=== PATIENT | female | born 1945 | race Caucasian/White ===

== ENCOUNTER → 2018-04-11 09:54 | Outpatient (CLI) | payer MEDICARE, SELFPAY ==
[2018-04-11 10:36] LABS: Hemoglobin A1C% w Est Avg Glu 7.2 % (4.0-6.0)
== END ==
PROVIDERS: PCP Family Medicine; Visit Provider Family Medicine
DX: I10 Essential (primary) hypertension (principal); M15.0 Primary generalized (osteo)arthritis; E11.40 Type 2 diabetes mellitus with diabetic neuropathy, unspecified
CPT/HCPCS: 36415; 83036

== ENCOUNTER 2018-07-20 15:15 | Outpatient (RCR) | payer MEDICARE, SELFPAY ==
--- NOTE | 2018-05-27 17:21 | PT.OIE ---
Current Diagnoses Benign paroxysmal vertigo, bilateral (05/27/18) Dizziness and giddiness (05/27/18) Past Medical History (Last Reviewed 04/12/18 @ 12:11 by Alyssa Bonner DO) Asthma (Chronic Unknown) Diabetes (Chronic Unknown) Hyperlipemia (Chronic Unknown) Hypertension (Chronic Unknown) Low back pain (Chronic ~2015) Osteoarthritis (Chronic Unknown) Carpal tunnel syndrome (Resolved ~2005) Colon polyps (Resolved 02/2007) Past Surgical History History of knee replacement S/P total abdominal hysterectomy and bilateral salpingo-oophorectomy Status post delivery Provider Visit Care Team Role Provider Type Alyssa Bonner DO Attending Provider Physician Family Provider Primary Care Provider Specialty: Family Practice Address: [address] [place] [address], [facility] Email: [email or web address] Physical Therapy Initial Evaluation PT-OP-A Visit Information Start: 05/27/18 16:45 Freq: Status: Active Protocol: Document 05/27/18 15:15 DCW (Rec: 05/27/18 17:21 DCW [id number]) Out-Patient Physical Therapy Visit Information Visit Information Visit Type Initial Evaluation Visit Start Time 15:15 Visit Stop Time 16:00 Total Visit Minutes 45 Visit Number 1 Number of RADIOLOGY TECHNOLOGIST Visits 0 Evaluation Information Evaluation Date 05/27/18 PT-OP-B Current Condition Start: 05/27/18 16:45 Freq: Status: Active Protocol: Document 05/27/18 15:15 DCW (Rec: 05/27/18 17:21 DC [id number]) Current Condition History of Current Condition Onset Date 04/26/18 Current Complaints Position-dependent vertigo History of Current Condition Pt is a 73 year old female complaining of a one year history of motion-induced vertigo. Symptoms began following a long flight back to [place] from [facility], when she fell getting up in the morning walking to the bathroom. Pt reports she felt a kaleidoscope vision prior to falling. Pt has not noticed this since then, but has had a consistent sensation of vertigo with position changes in bed. Pt reports episodes last 5/10 seconds, however she also notes just a generalized low-grade imbalance when up walking around, which has led to her walking with a cane more often. Pt denies recent hearing changes, tinnitus, diplopia, dysarthria, discoordination, or decreased mentation/consciousness. Pt reports symptoms are not waxing/waning in nature. Pt denies hx of arrhythmia, head trauma, seizure, migraines, CVA, anxiety/panic disorders, depression, or excessive smoking or drinking. Pt does note a history of HTN, hyperlipidemia, and diabetes, however all are well controlled. Treatment Goals Patient/Caregiver Goals Pt would like to eliminate vertigo and feel more stable when up walking around. Prior Functional Status Baseline Function- ADL's Independent Baseline Function- Mobility Independent Current Functional Impairments (Reported) Functional Limitations- Mobility/Gait Cane on uneven surfaces and sidewalks, no assistive device in her house. PT-OP-C Subjective Start: 05/27/18 16:45 Freq: Status: Active Protocol: Document 05/27/18 15:15 DCW (Rec: 05/27/18 17:21 DCW [id number]) Patient Questionnaires ABC- Activity Specific Balance Confidence Scale ABC Score 38.75% ABC Functional Impairment 60 to <80% Impaired (Score 21- 40) Dizziness Handicap Inventory DHI Score 56 DHI Functional Impairment 40 to 59% Impaired (Score 40- 59) PT-OP-O Vestibular Start: 05/27/18 16:45 Freq: Status: Active Protocol: Document 05/27/18 15:15 DCW (Rec: 05/27/18 17:21 DCW [id number]) Vestibular Assessment Screening Tests Vestibular Artery Screen Negative Auditory Tests Coffman Test Negative Rinne Test Negative Air Conduction Results Equal Visual Testing Smooth Pursuits Horizontal Negative Smooth Pursuits Vertical Negative Saccades Horizontal Negative Gaze Evoked Nystagmus With Fixation Negative Gaze Evoked Nystagmus Without Fixation Negative Heave Test Negative Thrust Head Negative Spontaneous Nystagmus Negative Positional Testing [place]-Hallpike Positive Left Positive Right PT-OP-Q Treatments Start: 05/27/18 16:45 Freq: Status: Active Protocol: Document 05/27/18 15:15 DCW (Rec: 05/27/18 17:21 DCW [id number]) Canalithic Repositioning BPPV Treatment Sukumar Affected Canal(s) Right posterior Reps x2 Comments Pt complained of symptoms in the first and third position, which is normally indicative of a successful treatment. PT-OP-T Assessment and Plan Start: 05/27/18 16:45 Freq: Status: Active Protocol: Document 05/27/18 15:15 DCW (Rec: 05/27/18 17:21 DCW [id number]) Physical Therapy Assessment Rehab Potential Rehabilitation Potential Good Evaluation Complexity Number of Personal Factors/Comorbidities 3 or More Number of Body Systems Impaired 3 Clinical Presentation at Evaluation Unstable Impairments Impairments Balance Coordination Vestibular Goals Two Impairment Zaki-Hallpike Short Term Goal (STG) Negative Zaki-Hallpike bilaterally STG Duration 06/10/18 One Impairment Activity participation Short Term Goal (STG) Pt to lay in bed with no complaints of vertigo STG Duration 06/10/18 Assessment Summary Assessment During right Zaki-Hallpike test , pt complained of vertigo and demonstrated up-beating, torsional nystagmus lasting approximately 5 seconds, consistent with diagnosis of right-sided posterior canal BPPV, canalithiasis-type. Pt was treated with a right-sided Sukumar maneuver. Pt complained of symptoms in the first and third position, which is normally indicative of a successful treatment. A second Hallpike was performed, and pt now had a sustained mild upbeating nystagmus lasting 40 seconds. A left Hallpike was then performed, and pt had a mild response of vertigo and upbeating, torsional nystagmus . This combination could be consistent with a left-sided canalithiasis where the loose canalith is laying on the ampula, mimicing a right- cupulolithiasis. Due to bilateral BPPV being difficult to treat all at once, a second right-sided Sukumar was performed, and pt was instructed to return next week for further testing and treatment o possible left- sided BPPV. Pt was educated on BPPV, expectations for treatment, possible recurrence , and post-Sukumar restrictions. Physical Therapy Plan Frequency and Duration Frequency of Treatment 2x/Week Duration of Treatment 6 weeks Plan of Care Start Date 05/27/18 Plan of Care End Date 07/08/18 Therapeutic Interventions Therapeutic Interventions Balance Training Canalithic Repositioning Manual Therapy Patient/Caregiver Education Self-Care/Home Management Therapeutic Exercises Next Visit Focus/Plan Next Note Type Treatment Note Next Visit Plan Further positional testing, CRM.
--- NOTE | 2018-05-27 17:22 | PT.OPPOC ---
Current Diagnoses Benign paroxysmal vertigo, bilateral (05/27/18) Dizziness and giddiness (05/27/18) Provider Visit Care Team Role Provider Type Alyssa Bonner DO Attending Provider Physician Family Provider Primary Care Provider Specialty: Family Practice Address: [address] [place] [address], [id number] Email: [email or web address] Plan Of Care PT-OP-T Assessment and Plan Start: 05/27/18 16:45 Freq: Status: Active Protocol: Document 05/27/18 15:15 DCW (Rec: 05/27/18 17:21 DCW [id number]) Physical Therapy Assessment Rehab Potential Rehabilitation Potential Good Evaluation Complexity Number of Personal Factors/Comorbidities 3 or More Number of Body Systems Impaired 3 Clinical Presentation at Evaluation Unstable Impairments Impairments Balance Coordination Vestibular Goals Two Impairment Zaki-Hallpike Short Term Goal (STG) Negative Zaki-Hallpike bilaterally STG Duration 06/10/18 One Impairment Activity participation Short Term Goal (STG) Pt to lay in bed with no complaints of vertigo STG Duration 06/10/18 Assessment Summary Assessment During right Zaki-Hallpike test , pt complained of vertigo and demonstrated up-beating, torsional nystagmus lasting approximately 5 seconds, consistent with diagnosis of right-sided posterior canal BPPV, canalithiasis-type. Pt was treated with a right-sided Sukumar maneuver. Pt complained of symptoms in the first and third position, which is normally indicative of a successful treatment. A second Hallpike was performed, and pt now had a sustained mild upbeating nystagmus lasting 40 seconds. A left Hallpike was then performed, and pt had a mild response of vertigo and upbeating, torsional nystagmus . This combination could be consistent with a left-sided canalithiasis where the loose canalith is laying on the ampula, mimicing a right- cupulolithiasis. Due to bilateral BPPV being difficult to treat all at once, a second right-sided Sukumar was performed, and pt was instructed to return next week for further testing and treatment o possible left- sided BPPV. Pt was educated on BPPV, expectations for treatment, possible recurrence , and post-Sukumar restrictions. Physical Therapy Plan Frequency and Duration Frequency of Treatment 2x/Week Duration of Treatment 6 weeks Plan of Care Start Date 05/27/18 Plan of Care End Date 07/08/18 Therapeutic Interventions Therapeutic Interventions Balance Training Canalithic Repositioning Manual Therapy Patient/Caregiver Education Self-Care/Home Management Therapeutic Exercises Next Visit Focus/Plan Next Note Type Treatment Note Next Visit Plan Further positional testing, CRM. Plan of Care Dates Plan of Care Start Date 05/27/18 Plan of Care End Date 07/08/18 Please Sign and Return: I have reviewed this Plan of Care and certify that the skilled therapy services above are required to meet the patient?s needs. Physician Signature Date Printed Name and Credentials Clinical Instructor Signature Printed Name and Credentials
--- NOTE | 2018-05-30 14:31 | PT.OTN ---
Current Diagnoses Dizziness and giddiness (05/30/18) Physical Therapy Treatment Note PT-OP-A Visit Information Start: 05/27/18 16:45 Freq: Status: Active Protocol: Document 05/30/18 13:50 DCW (Rec: 05/30/18 14:30 DCW [id number]) Out-Patient Physical Therapy Visit Information Visit Information Visit Type Treatment Note Visit Note Arrived 5 minutes late Visit Start Time 13:50 Visit Stop Time 14:20 Total Visit Minutes 30 Visit Number 2 Number of FURNACE MECHANIC Visits 0 Evaluation Information Evaluation Date 05/27/18 PT-OP-B Current Condition Start: 05/27/18 16:45 Freq: Status: Active Protocol: Document 05/27/18 15:15 DCW (Rec: 05/27/18 17:21 DCW [id number]) Current Condition History of Current Condition Onset Date 04/26/18 Current Complaints Position-dependent vertigo History of Current Condition Pt is a 73 year old female complaining of a one year history of motion-induced vertigo. Symptoms began following a long flight back to [place] from [facility], when she fell getting up in the morning walking to the bathroom. Pt reports she felt a kaleidoscope vision prior to falling. Pt has not noticed this since then, but has had a consistent sensation of vertigo with position changes in bed. Pt reports episodes last 5/10 seconds, however she also notes just a generalized low-grade imbalance when up walking around, which has led to her walking with a cane more often. Pt denies recent hearing changes, tinnitus, diplopia, dysarthria, discoordination, or decreased mentation/consciousness. Pt reports symptoms are not waxing/waning in nature. Pt denies hx of arrhythmia, head trauma, seizure, migraines, CVA, anxiety/panic disorders, depression, or excessive smoking or drinking. Pt does note a history of HTN, hyperlipidemia, and diabetes, however all are well controlled. Treatment Goals Patient/Caregiver Goals Pt would like to eliminate vertigo and feel more stable when up walking around. Prior Functional Status Baseline Function- ADL's Independent Baseline Function- Mobility Independent Current Functional Impairments (Reported) Functional Limitations- Mobility/Gait Cane on uneven surfaces and sidewalks, no assistive device in her house. PT-OP-C Subjective Start: 05/27/18 16:45 Freq: Status: Active Protocol: Document 05/30/18 13:50 DCW (Rec: 05/30/18 14:30 DCW [id number]) OP-PT Subjective Patient Comments Patient Comments Is there a placebo effect for this, because I felt better. Although I haven't really been doing anything to trigger it since Wednesday, so maybe not . Patient Reported Progress Improving PT-OP-O Vestibular Start: 05/27/18 16:45 Freq: Status: Active Protocol: Document 05/30/18 13:50 DCW (Rec: 05/30/18 14:30 DCW [id number]) Vestibular Assessment Positional Testing Zaki-Hallpike Positive Right Negative Left PT-OP-Q Treatments Start: 05/27/18 16:45 Freq: Status: Active Protocol: Document 05/30/18 13:50 DCW (Rec: 05/30/18 14:30 DCW [id number]) Manual Therapy Treatment Manual Techniques 1 Type Positional vestibular testing Canalithic Repositioning BPPV Treatment Sukumar Affected Canal(s) Right posterior Reps x3 PT-OP-T Assessment and Plan Start: 05/27/18 16:45 Freq: Status: Active Protocol: Document 05/30/18 13:50 DCW (Rec: 05/30/18 14:30 DCW [id number]) Physical Therapy Assessment Impairments Impairments Balance Coordination Vestibular Goals Two Impairment Zaki-Hallpike Short Term Goal (STG) Negative [place]-Hallpike bilaterally STG Duration 06/10/18 One Impairment Activity participation Short Term Goal (STG) Pt to lay in bed with no complaints of vertigo STG Duration 06/10/18 Assessment Summary Assessment Pt right-sided Hallpike test again positive with complaints of vertigo and up-beating, torsional nystagmus lasting 5 seconds. Sukumar maneuve was performed three seperate times , and although signs indicated a successful treatment, each successive Hallpike was again positive. After third treatment, Therapist decided to stop treatment for today, as any further testing would likely be negative simply due to the fact that nystagmus is a fatigable response, and a negative result would not mean anything. Pt instructed to schedule another return appointment in 1-2 weeks. Physical Therapy Plan Frequency and Duration Frequency of Treatment 2x/Week Duration of Treatment 6 weeks Plan of Care Start Date 05/27/18 Plan of Care End Date 07/08/18 Therapeutic Interventions Therapeutic Interventions Balance Training Canalithic Repositioning Manual Therapy Patient/Caregiver Education Self-Care/Home Management Therapeutic Exercises Next Visit Focus/Plan Next Note Type Treatment Note Next Visit Plan Further positional testing, CRM.
--- NOTE | 2018-06-22 12:36 | PT.OTN ---
Current Diagnoses Dizziness and giddiness (06/22/18) Physical Therapy Treatment Note PT-OP-A Visit Information Start: 05/27/18 16:45 Freq: Status: Active Protocol: Document 06/22/18 12:00 DCW (Rec: 06/22/18 12:35 DCW [id number]) Out-Patient Physical Therapy Visit Information Visit Information Visit Type Treatment Note Visit Start Time 12:00 Visit Stop Time 12:30 Total Visit Minutes 30 Visit Number 3 Number of TIGHT BARREL INSPECTOR Visits 0 Evaluation Information Evaluation Date 05/27/18 PT-OP-B Current Condition Start: 05/27/18 16:45 Freq: Status: Active Protocol: Document 05/27/18 15:15 DCW (Rec: 05/27/18 17:21 DCW [id number]) Current Condition History of Current Condition Onset Date 04/26/18 Current Complaints Position-dependent vertigo History of Current Condition Pt is a 73 year old female complaining of a one year history of motion-induced vertigo. Symptoms began following a long flight back to [place] from [facility], when she fell getting up in the morning walking to the bathroom. Pt reports she felt a kaleidoscope vision prior to falling. Pt has not noticed this since then, but has had a consistent sensation of vertigo with position changes in bed. Pt reports episodes last 5/10 seconds, however she also notes just a generalized low-grade imbalance when up walking around, which has led to her walking with a cane more often. Pt denies recent hearing changes, tinnitus, diplopia, dysarthria, discoordination, or decreased mentation/consciousness. Pt reports symptoms are not waxing/waning in nature. Pt denies hx of arrhythmia, head trauma, seizure, migraines, CVA, anxiety/panic disorders, depression, or excessive smoking or drinking. Pt does note a history of HTN, hyperlipidemia, and diabetes, however all are well controlled. Treatment Goals Patient/Caregiver Goals Pt would like to eliminate vertigo and feel more stable when up walking around. Prior Functional Status Baseline Function- ADL's Independent Baseline Function- Mobility Independent Current Functional Impairments (Reported) Functional Limitations- Mobility/Gait Cane on uneven surfaces and sidewalks, no assistive device in her house. PT-OP-C Subjective Start: 05/27/18 16:45 Freq: Status: Active Protocol: Document 06/22/18 12:00 DCW (Rec: 06/22/18 12:35 DCW [id number]) OP-PT Subjective Patient Comments Patient Comments I think I'm back to where I started. I'm okay bending over to pick something up, but I just feel unstable walking. After the first time I was in here, that seemed to have gone away. Pt also notes her weight has been fluctuating more recenting, and she's been having trouble with her blood sugar. Patient Reported Progress Improving PT-OP-O Vestibular Start: 05/27/18 16:45 Freq: Status: Active Protocol: Document 06/22/18 12:00 DCW (Rec: 06/22/18 12:35 DCW [id number]) Vestibular Assessment Positional Testing [place]-Hallpike Positive Right Negative Left PT-OP-Q Treatments Start: 05/27/18 16:45 Freq: Status: Active Protocol: Document 06/22/18 12:00 DCW (Rec: 06/22/18 12:35 DCW [id number]) Manual Therapy Treatment Manual Techniques 1 Type Positional vestibular testing Canalithic Repositioning BPPV Treatment Sukumar Affected Canal(s) Right posterior Reps x2 Comments Pt complained of symptoms in the first and third position, which is normally indicative of a successful treatment. The second rep was entirely negative. PT-OP-T Assessment and Plan Start: 05/27/18 16:45 Freq: Status: Active Protocol: Document 06/22/18 12:00 DCW (Rec: 06/22/18 12:35 DCW [id number]) Physical Therapy Assessment Impairments Impairments Balance Coordination Vestibular Goals Two Impairment Zaki-Hallpike Short Term Goal (STG) Negative [place]-Hallpike bilaterally STG Duration 06/10/18 One Impairment Activity participation Short Term Goal (STG) Pt to lay in bed with no complaints of vertigo STG Duration 06/10/18 Assessment Summary Assessment Pt right-sided Hallpike test again positive with complaints of vertigo and up-beating, torsional nystagmus lasting 5 seconds. Sukumar maneuver was performed twice, the second time being entirely negative. Pt reported upon standing up that she already felt more stable. Pt instructed to schedule another return appointment in 1-2 weeks. Physical Therapy Plan Frequency and Duration Frequency of Treatment 2x/Week Duration of Treatment 6 weeks Plan of Care Start Date 05/27/18 Plan of Care End Date 07/08/18 Therapeutic Interventions Therapeutic Interventions Balance Training Canalithic Repositioning Manual Therapy Patient/Caregiver Education Self-Care/Home Management Therapeutic Exercises Next Visit Focus/Plan Next Note Type Treatment Note Next Visit Plan Further positional testing, CRM.
--- NOTE | 2018-07-20 15:54 | PT.OTN ---
Current Diagnoses Dizziness and giddiness (07/20/18) Physical Therapy Treatment Note PT-OP-A Visit Information Start: 05/27/18 16:45 Freq: Status: Active Protocol: Document 07/20/18 15:15 DCW (Rec: 07/20/18 15:54 DCW [id number]) Out-Patient Physical Therapy Visit Information Visit Information Visit Type Discharge Summary Visit Start Time 15:15 Visit Stop Time 15:30 Total Visit Minutes 15 Visit Number 4 Number of SUPERVISOR AIRCRAFT CLEANING Visits 0 Evaluation Information Evaluation Date 05/27/18 PT-OP-B Current Condition Start: 05/27/18 16:45 Freq: Status: Active Protocol: Document 05/27/18 15:15 DCW (Rec: 05/27/18 17:21 DCW [id number]) Current Condition History of Current Condition Onset Date 04/26/18 Current Complaints Position-dependent vertigo History of Current Condition Pt is a 73 year old female complaining of a one year history of motion-induced vertigo. Symptoms began following a long flight back to [place] from [facility], when she fell getting up in the morning walking to the bathroom. Pt reports she felt a kaleidoscope vision prior to falling. Pt has not noticed this since then, but has had a consistent sensation of vertigo with position changes in bed. Pt reports episodes last 5/10 seconds, however she also notes just a generalized low-grade imbalance when up walking around, which has led to her walking with a cane more often. Pt denies recent hearing changes, tinnitus, diplopia, dysarthria, discoordination, or decreased mentation/consciousness. Pt reports symptoms are not waxing/waning in nature. Pt denies hx of arrhythmia, head trauma, seizure, migraines, CVA, anxiety/panic disorders, depression, or excessive smoking or drinking. Pt does note a history of HTN, hyperlipidemia, and diabetes, however all are well controlled. Treatment Goals Patient/Caregiver Goals Pt would like to eliminate vertigo and feel more stable when up walking around. Prior Functional Status Baseline Function- ADL's Independent Baseline Function- Mobility Independent Current Functional Impairments (Reported) Functional Limitations- Mobility/Gait Cane on uneven surfaces and sidewalks, no assistive device in her house. PT-OP-C Subjective Start: 05/27/18 16:45 Freq: Status: Active Protocol: Document 07/20/18 15:15 DCW (Rec: 07/20/18 15:54 DCW [id number]) OP-PT Subjective Patient Comments Patient Comments I feel fine, but I also don't lay down in my bed anymore, juan we'll see. PT-OP-O Vestibular Start: 05/27/18 16:45 Freq: Status: Active Protocol: Document 07/20/18 15:15 DCW (Rec: 07/20/18 15:54 DCW [id number]) Vestibular Assessment Positional Testing [place]-Hallpike Negative Left Negative Right PT-OP-Q Treatments Start: 05/27/18 16:45 Freq: Status: Active Protocol: Document 07/20/18 15:15 DCW (Rec: 07/20/18 15:54 DCW [id number]) Manual Therapy Treatment Manual Techniques 1 Type Positional vestibular testing PT-OP-T Assessment and Plan Start: 05/27/18 16:45 Freq: Status: Active Protocol: Document 07/20/18 15:15 DCW (Rec: 07/20/18 15:54 DCW [id number]) Physical Therapy Assessment Impairments Impairments Balance Coordination Vestibular Goals Two Impairment Zaki-Hallpike Short Term Goal (STG) Negative Zaki-Hallpike bilaterally STG Duration Met One Impairment Activity participation Short Term Goal (STG) Pt to lay in bed with no complaints of vertigo STG Duration Met Assessment Summary Assessment Pt vestibular assessment entirely negative, no further indication of BPPV. Pt will be discharged from skilled therapy at this time. Physical Therapy Plan Frequency and Duration Frequency of Treatment 1x/Week Duration of Treatment 1 week Plan of Care Start Date 07/20/18 Plan of Care End Date 07/27/18 Therapeutic Interventions Therapeutic Interventions Balance Training Canalithic Repositioning Manual Therapy Patient/Caregiver Education Self-Care/Home Management Therapeutic Exercises Discharge Physical Therapy Discharge Reasons Goals Met Discharge Comments No further vestibular rehabilitation indicated at this time.
--- NOTE | 2018-07-20 15:55 | PT.OPPOC ---
Current Diagnoses Dizziness and giddiness (07/20/18) Provider Visit Care Team Role Provider Type Alyssa Bonner DO Attending Provider Physician Family Provider Primary Care Provider Specialty: Family Practice Address: [address] [place] [address], [id number] Email: [email or web address] Plan Of Care PT-OP-T Assessment and Plan Start: 05/27/18 16:45 Freq: Status: Active Protocol: Document 07/20/18 15:15 DCW (Rec: 07/20/18 15:54 DCW [id number]) Physical Therapy Assessment Impairments Impairments Balance Coordination Vestibular Goals Two Impairment Zaki-Hallpike Short Term Goal (STG) Negative Commerce-Hallpike bilaterally STG Duration Met One Impairment Activity participation Short Term Goal (STG) Pt to lay in bed with no complaints of vertigo STG Duration Met Assessment Summary Assessment Pt vestibular assessment entirely negative, no further indication of BPPV. Pt will be discharged from skilled therapy at this time. Physical Therapy Plan Frequency and Duration Frequency of Treatment 1x/Week Duration of Treatment 1 week Plan of Care Start Date 07/20/18 Plan of Care End Date 07/27/18 Therapeutic Interventions Therapeutic Interventions Balance Training Canalithic Repositioning Manual Therapy Patient/Caregiver Education Self-Care/Home Management Therapeutic Exercises Discharge Physical Therapy Discharge Reasons Goals Met Discharge Comments No further vestibular rehabilitation indicated at this time. Plan of Care Dates Plan of Care Start Date 07/20/18 Plan of Care End Date 07/27/18 Please Sign and Return: I have reviewed this Plan of Care and certify that the skilled therapy services above are required to meet the patient?s needs. Physician Signature Date Printed Name and Credentials Clinical Instructor Signature Printed Name and Credentials
== END 2018-11-21 13:13 ==
LOC: PHYS 15:15
PROVIDERS: Family Provider Family Medicine; PCP Family Medicine; Visit Provider Family Medicine
DX: R42 Dizziness and giddiness (principal)
CPT/HCPCS: 95992; 97140; 97162

== ENCOUNTER → 2018-08-22 14:34 | Outpatient (CLI) | payer MEDICARE, SELFPAY ==
--- NOTE | 2018-08-22 14:36 | DI.RAD.S_ITS ---
PROCEDURE: XR WRIST LT MIN 3V INDICATIONS: fell on left side TECHNIQUE: 4 views of the wrist were acquired. COMPARISON: None. FINDINGS: Bones: Osteoarthritic changes along radial aspect of left wrist are seen particularly involving first CMC joint. No definite acute fracture or dislocation. Old injury involving the ulnar styloid tip is seen with a few well-corticated calcifications. Scaphoid view: Scaphoid is grossly intact. Soft tissues: No suspicious soft tissue calcifications. IMPRESSION: No gross acute left wrist fracture or dislocation. Osteoarthritic changes along radial aspect of the left wrist most prominent involving the first CMC joint. Dictated by: Richi Lomax M.D. on 08/22/2018 at 15:38 Approved by: Richi Lomax M.D. on 08/22/2018 at 15:45
--- NOTE | 2018-08-22 14:36 | DI.RAD.S_ITS ---
PROCEDURE: XR ELBOW LT 2V INDICATIONS: fell on left side TECHNIQUE: 2 views of the elbow were acquired. COMPARISON: None. FINDINGS: Bones: No definite fractures or dislocations but the patient cannot assume an oblique position which limits the quality of visualization. No suspicious bony lesions but there is a moderate degree of degenerative osteoarthritis at the radial head and olecranon fossa. Soft tissues: There is what appears to be a significant elbow joint effusion elevating the posterior fat pad. Trauma with hemorrhage into the elbow joint effusion may obscure visualization of an elevated anterior sail sign.. No suspicious soft tissue calcifications. IMPRESSION: Significant traumatic injury to the elbow is suspected but not definitively established by plain film imaging. As discussed above there doesn't appear to be likelihood of a significant elbow joint effusion, which usually is not secondary to the osteoarthritis present. A hidden fracture may be present in this situation and delayed plain films or proceeding to CT/MR scanning may be warranted. Dictated by: Baldev Randle M.D. on 08/22/2018 at 15:03 Approved by: Baldev Randle M.D. on 08/22/2018 at 15:05
--- NOTE | 2018-08-22 14:36 | DI.RAD.S_ITS ---
PROCEDURE: XR HAND LT MIN 3V INDICATIONS: fell on left side TECHNIQUE: 3 views of the hand(s) acquired. COMPARISON: None. FINDINGS: Bones: No fractures or dislocations. Carpal bones are normally aligned. No suspicious bony lesions. Severe osteoarthritic changes at first CMC joint are seen. Old healed injury involving the ulnar styloid tip is also noted. Soft tissues: No suspicious soft tissue calcifications. IMPRESSION: No gross acute left hand fracture or dislocation. Osteoarthritis along radial aspect of left wrist. Dictated by: Richi Lomax M.D. on 08/22/2018 at 15:32 Approved by: Richi Lomax M.D. on 08/22/2018 at 15:38
--- NOTE | 2018-08-22 14:36 | DI.RAD.S_ITS ---
PROCEDURE: XR SHOULDER LT MIN 2V INDICATIONS: fell on left side TECHNIQUE: 3 views of the shoulder were acquired. COMPARISON: None. FINDINGS: Bones: No fractures or dislocations. Moderate osteoarthritis at the a.c. joint No suspicious bony lesions. Visualized ribs appear intact. Soft tissues: No suspicious soft tissue calcifications. IMPRESSION: No fracture found, moderate a.c. joint osteoarthritis. Dictated by: Baldev Randle M.D. on 08/22/2018 at 15:05 Approved by: Baldev Randle M.D. on 08/22/2018 at 15:06
== END ==
PROVIDERS: Family Provider Family Medicine; PCP Family Medicine; Visit Provider Physician Assistant
DX: M25.512 Pain in left shoulder (principal); M79.642 Pain in left hand; M19.012 Primary osteoarthritis, left shoulder; M19.042 Primary osteoarthritis, left hand; M18.12 Unilateral primary osteoarthritis of first carpometacarpal joint, left hand
CPT/HCPCS: 73030; 73070; 73110; 73130

== ENCOUNTER → 2018-08-24 08:19 | Outpatient (CLI) | payer MEDICARE, SELFPAY ==
--- NOTE | 2018-08-24 08:24 | DI.CT.S_ITS ---
PROCEDURE: CT UE LT WO CON INDICATIONS: Left elbow pain, fell on left arm TECHNIQUE: Noncontrast 1-1.5 mm axial sections were acquired through the elbow joint, with coronal and sagittal reformats. COMPARISON: None. FINDINGS: Image quality: Excellent. Bones: No definite fracture identified. There is left elbow joint degeneration with diffuse spurring and subchondral sclerosis. There are also punctate and ill-defined small density is seen within the radiocapitellar and ulnotrochlear joint spaces which could represent small loose bodies and/or chondrocalcinosis. Soft tissues: Circumferential soft tissue swelling/cellulitis about the posterior elbow. Small joint effusion IMPRESSION: Posterior soft tissue swelling. No fracture identified. If the patient's pain persists, followup with noncontrast elbow MRI to evaluate for occult fracture or soft tissue injury could be performed. Chronic degenerative joint disease, with punctate intra-articular loose bodies and/or chondrocalcinosis. Small elbow joint effusion. Dictated by: Will Cleveland M.D. on 08/24/2018 at 9:20 Approved by: Will Cleveland M.D. on 08/24/2018 at 9:28
== END ==
PROVIDERS: PCP Family Medicine; Visit Provider Physician Assistant
DX: M25.552 Pain in left hip (principal)
CPT/HCPCS: 73200

== ENCOUNTER → 2018-10-12 10:50 | Outpatient (CLI) | payer MEDICARE, SELFPAY ==
[2018-10-12 11:55] LABS: Hemoglobin A1C% w Est Avg Glu 7.8 % (4.0-6.0)
[2018-10-12 11:58] LABS: Add Manual Diff / Slide Review NO; Basophils Percent Auto 0.9 % (0-2); Eosinophils Percent Auto 2.4 % (2-4); Hematocrit 44.3 % (36-46); Hemoglobin 14.5 g/dL (12.0-16.0); Lymphocytes Percent Auto 20.7 % (25-40); Mean Corpuscular HGB Conc 32.8 % (30-36); Mean Corpuscular Hemoglobin 30.6 PG (26-34); Mean Corpuscular Volume 93.2 fL (80-100); Monocytes Percent Auto 4.9 % (3-14); Neutrophils Absolute Auto 4900 /uL (3000-5900); Neutrophils Percent Auto 71.1 % (50-75); Platelet Count 251 X10^3/uL (150-400); Red Blood Cell Count 4.75 X10^6/uL (4.0-5.2); Red Cell Distribution Width 13.9 % (11.6-14.8); White Blood Cell Count 6.8 X10^3/uL (4.5-11.0)
[2018-10-12 12:20] LABS: Alanine Aminotransferase 35 IU/L (9-52); Albumin 3.9 g/dL (3.5-5.0); Albumin Globulin Ratio 1.4 (1.0-2.8); Alkaline Phosphatase 69 U/L (38-126); Aspartate Aminotransferase 18 IU/L (14-36); BUN Creatinine Ratio 27.8 (6-22); Bilirubin Total 0.4 mg/dL (0.2-1.3); Blood Urea Nitrogen 25 mg/dL (7-17); Carbon Dioxide 29 mmol/L (22-32); Chloride 100 mmol/L (98-107); Cholesterol 188 mg/dL (140-199); Estimated Glomerular Filt Rate > 60.0 mL/min (>60); Globulin 2.8 g/dL (1.7-4.1); Glucose 206 mg/dL (80-110); HDL Cholesterol 83 mg/dL (40-60); HEMOLYSIS < 15 (0-50); LDL Cholesterol Calculated 68 mg/dL (<100); Potassium 4.3 mmol/L (3.4-5.1); Sodium 142 mmol/L (137-145); Total Protein 6.7 g/dL (6.3-8.2); Triglycerides 187 mg/dL (35-150)
[2018-10-12 12:58] LABS: Vitamin B12 864 pg/mL (239-931)
== END ==
PROVIDERS: PCP Family Medicine; Visit Provider Family Medicine
DX: E11.9 Type 2 diabetes mellitus without complications (principal); I10 Essential (primary) hypertension; E53.8 Deficiency of other specified B group vitamins
CPT/HCPCS: 36415; 80053; 80061; 82607; 83036; 85025

== ENCOUNTER → 2018-11-04 10:08 | Outpatient (CLI) | payer MEDICARE, SELFPAY ==
--- NOTE | 2018-11-04 | DI.MG.S_ITS ---
BILATERAL DIGITAL SCREENING MAMMOGRAM 3D/2D WITH CAD: 11/04/2018 CLINICAL: Routine screening. Comparison is made to exams dated: 10/29/2017 mammogram, 10/28/2016 mammogram, and 10/18/2015 mammogram - [facility]. The tissue of both breasts is predominantly fatty. Current study was also evaluated with a Computer Aided Detection (CAD) system. No significant masses, calcifications, or other findings are seen in either breast. There has been no significant interval change. IMPRESSION: NEGATIVE There is no mammographic evidence of malignancy. A 1 year screening mammogram is recommended. This exam was interpreted at Station ID: [id number]. NOTE: For mammograms, a report in lay terms will be sent to the patient. Approximately 15% of breast malignancies will not be visualized mammographically. In the management of a palpable breast mass, a negative mammogram must not discourage biopsy of a clinically suspicious lesion. Electronically Signed By: Kain corbin/marie:11/04/2018 15:02:29 copy to: Alyssa Bonner letter sent: Normal Exam ACR BI-RADS Category 1: Negative [id number]
== END ==
PROVIDERS: PCP Family Medicine
DX: Z12.31 Encounter for screening mammogram for malignant neoplasm of breast (principal)
CPT/HCPCS: 77063; 77067

== ENCOUNTER 2019-02-10 13:45 | Outpatient (RCR) | payer MEDICARE, SELFPAY ==
--- NOTE | 2019-01-11 16:45 | PT.OIE ---
Current Diagnoses Pain in left knee (01/11/19) Pain in unspecified knee (01/11/19) Muscle weakness (generalized) (01/11/19) Other abnormalities of gait and mobility (01/11/19) History of falling (01/11/19) Past Medical History (Last Reviewed 12/06/18 @ 17:01 by Alyssa Bonner DO) Asthma (Chronic Unknown) Diabetes (Chronic Unknown) Hyperlipemia (Chronic Unknown) Hypertension (Chronic Unknown) Low back pain (Chronic ~2015) Osteoarthritis (Chronic Unknown) Carpal tunnel syndrome (Resolved ~2005) Colon polyps (Resolved 02/2007) Past Surgical History (Last Reviewed 12/06/18 @ 17:01 by Alyssa Bonner DO) History of knee replacement S/P total abdominal hysterectomy and bilateral salpingo-oophorectomy Status post delivery Provider Visit Care Team Role Provider Type Alyssa Bonner DO Attending Provider Physician Primary Care Provider Specialty: [facility] Address: [address] [place] [address] Email: [email or web address] Physical Therapy Initial Evaluation PT-OP-A Visit Information Start: 01/12/19 09:39 Freq: Status: Active Protocol: Document 01/11/19 16:00 DCW (Rec: 01/12/19 10:16 DCW [id number]) Out-Patient Physical Therapy Visit Information Visit Information Visit Type Initial Evaluation Visit Start Time 16:00 Visit Stop Time 16:45 Total Visit Minutes 45 Visit Number 1 Number of TREE DRILLER Visits 0 Evaluation Information Evaluation Date 01/11/19 PT-OP-B Current Condition Start: 01/12/19 09:39 Freq: Status: Active Protocol: Document 01/11/19 16:00 DCW (Rec: 01/12/19 10:16 DC [id number]) Current Condition History of Current Condition Onset Date Long-standing history Current Complaints Left knee pain and weakness, gait difficulty, imbalance History of Current Condition Pt is a 73 year old female well known to this clinic presenting with complaints of knee pain and worsening balance. Pt had previously been seen at this clinic for, among other things, vestibular rehabilitation, but she reports her imbalance now is entirely different, and she does not experience any vertigo, just feels very unstable. Notes that she now walks with a cane constantly, and I'm not happy about it. Pt reports she is taking a class at the [facility] about living with chronic conditions, and reports that it has really helped her organize her goals and expectations, but she still wants to walk normally. Pt admits to two fairly recent falls, one occurred when tripping over a low curb in a parking lot, and the most recent one occurred when she tripped over the completely flat floor at the [facility], fell into a table, and then landed on her knees. Pt also notes that over the last few years, she feels like there has been an increase in the numbness in her feet. Prior Functional Status Baseline Function- ADL's Modified Independent Baseline Function- Mobility Modified Independent Current Functional Impairments (Reported) Functional Limitations- Mobility/Gait Pt ambulates with a trendelenburg gait pattern and ambulates everywhere with her SPC Personal Factors Other Personal Factors That May Effect DM II, HTN, Arthritis, Therapy/Recovery Neuropathy, R TKA (2003), Hx Polio PT-OP-C Subjective Start: 01/12/19 09:39 Freq: Status: Active Protocol: Document 01/11/19 16:00 DCW (Rec: 01/12/19 10:16 DCW [id number]) OP-PT Subjective Patient Comments Patient Comments I want to be walking without a cane by my 74th birthday (15 days from eval). Patient Reported Progress Worse Patient Questionnaires ABC- Activity Specific Balance Confidence Scale ABC Score 43.13% ABC Functional Impairment 40 to <60% Impaired (Score 41- 60) Dizziness Handicap Inventory DHI Score 54% DHI Functional Impairment 40 to 59% Impaired (Score 40- 59) Lower Extremity Functional Scale LEFS Score 24/80 = 30% LEFS Impairment 60 to 79% Impaired (Score 17- 31) OP-PT Pain Assessment Pain Assessment Grid Paper Pain Assessment Grid Completed Yes Location Left Anterior Knee Intensity 4 Scale Used Numeric (1 - 10) PT-OP-D Balance Start: 01/12/19 09:39 Freq: Status: Active Protocol: Document 01/11/19 16:00 DCW (Rec: 01/12/19 10:16 DCW [id number]) Balance Tests Matos Balance Test Matos Balance Test Score 37/56 Matos Impairment Rating 20 to 39% Impaired (Score 34- 44) Matos Balance Assessment Evaluation Sitting to Standing Ability Independent w/Hands Unsupported Stance Safely- 2 minutes Sitting Unsupported, Feet on Floor Safely- 2 minutes Standing to Sitting Ability Safely, Minimal Hand Use Transfer Ability Safely, Minimal Hand Use Unsupported Stance- Eyes Closed Safely, 10 seconds Unsupported Stance- Eyes Open Assist to attain, 15 secs Reaching Forward Standing Safely, 5 inches Pick- Up Object From Floor Supervision Look Behind Shoulder - Standing Turns Sideways Only Turning 360 Degrees Turns slowly, but safely Unsupported Stance, Alternating Feet on Assist to Prevent Fall Stair Unsupported Tandem Stance Small Step- 30 seconds Unilateral Leg Stance Lifts Leg/Unable to Hold Total Score Matos Total Score (out of 56 points) 37 Matos Impairment Rating 20 to 39% Impaired (Score 34- 44) PT-OP-E Functional Tests Start: 01/12/19 09:39 Freq: Status: Active Protocol: Document 01/11/19 16:00 DCW (Rec: 01/12/19 10:16 DCW [id number]) Functional Tests Dynamic Gait Index (DGI) Score 10/24 DGI Impairment Rating 40 to <60% Impaired (Score 10- 14) PT-OP-G Mobility & Gait Start: 01/12/19 09:39 Freq: Status: Active Protocol: Document 01/11/19 16:00 DCW (Rec: 01/12/19 10:16 DCW [id number]) OP Gait Assessment Gait Gait Assistance Required: Independent Able to Maintain Weight Bearing Status Yes During Gait Assistive Devices Assistive Device Straight Cane Orthotic/Prosthetic Devices or Brace: No Gait Deviations General Gait Pattern Antalgic Decreased Stride Length Lateral Trunk Lean Comments Gait Comments Trendelenburg gait pattern, lateral lean to compensate for Glute Med weakness Stair Climbing Evaluation Evaluation Level of Assist On Stairs Independent Devices Stair Climbing Assistive Devices Left Railing Right Railing Technique/Endurance Stair Climbing Direction Descend Stair Climbing Technique Step to Step Number of Steps Climbed 4 PT-OP-M Strength Start: 01/12/19 09:39 Freq: Status: Active Protocol: Document 01/11/19 16:00 DCW (Rec: 01/12/19 10:16 DCW [id number]) Hip Strength Hip Manual Muscle Testing Right Flexion (L2) 4- Good- Abduction 4- Good- Adduction 4 Good External Rotation 5 Normal Internal Rotation 5 Normal Left Flexion (L2) 4- Good- Abduction 4- Good- Adduction 4 Good External Rotation 4- Good- Internal Rotation 5 Normal Comments Pain in L knee with ER testing Knee Strength Knee Manual Muscle Testing Right Flexion (S2) 4+ Good+ Extension (L3) 4+ Good+ Left Flexion (S2) 4+ Good+ Extension (L3) 4- Good- Comments Resisted extension caused pain in left knee PT-OP-T Assessment and Plan Start: 01/12/19 09:39 Freq: Status: Active Protocol: Document 01/11/19 16:00 DCW (Rec: 01/12/19 10:16 DCW [id number]) Physical Therapy Assessment Rehab Potential Rehabilitation Potential Good Evaluation Complexity Number of Personal Factors/Comorbidities 3 or More Number of Body Systems Impaired 3 Clinical Presentation at Evaluation Unstable Impairments Impairments Activity Tolerance Balance Functional Activities Functional Mobility Gait Pain Strength Other Concerns Fall Risk Increased falls risk per Matos (37/56), High falls risk per DGI (08/31) Goals Four Impairment Pt at a high falls risk Short Term Goal (STG) Pt to score at least 45 on the Matos Balance Scale STG Duration 02/11/19 Jail Goal (LTG) Pt to score at least 18 on DGI LTG Duration 03/13/19 Three Impairment Pt ambulates with SPC 100% of the time Jail Goal (LTG) Pt to feel comfortable ambulating with her cane less than 50% of the time LTG Duration 03/13/19 Two Impairment Falls System Validation Engineer Goal (LTG) Pt to report no falls over a two months period LTG Duration 03/13/19 One Impairment Pt does not have an appropriate Home Exercise Program Short Term Goal (STG) Pt to be independent and complaint with an appropriate HEP STG Duration 02/11/19 Assessment Summary Assessment Pt presents with poor balance, LE weakness, and gait dysfunction resulting in an increased falls risk. Pt should benefit from skilled therapy focused on increasing LE strength, especially bilateral hip abductors/glute med, static and dynamic balance training, gait training, and pain control for her left knee. Pt's left knee appears to be her biggest limiting factor, and most of her LE weakness seems to be more weakness secondary to pain, rather than true muscle weakness. Physical Therapy Plan Frequency and Duration Frequency of Treatment 2x/Week Duration of Treatment 12 weeks Plan of Care Start Date 01/11/19 Plan of Care End Date 04/05/19 Therapeutic Interventions Therapeutic Interventions Aquatic Therapy Balance Training Gait Training Home Exercise Program Joint Mobilizations Manual Therapy Neuromuscular Re-education Patient/Caregiver Education Soft Tissue Mobilization Therapeutic Activities Therapeutic Exercises Modalities Cold Pack/Ice Massage Electric Stimulation Hot Packs Ultrasound Next Visit Focus/Plan Next Note Type Treatment Note Next Visit Plan LE strengthening, balance training
--- NOTE | 2019-01-11 16:46 | PT.OPPOC ---
Current Diagnoses Pain in left knee (01/11/19) Pain in unspecified knee (01/11/19) Muscle weakness (generalized) (01/11/19) Other abnormalities of gait and mobility (01/11/19) History of falling (01/11/19) Provider Visit Care Team Role Provider Type Alyssa Bonner DO Attending Provider Physician Primary Care Provider Specialty: [facility] Practice Address: [address] [place] [address], [facility] Email: [email or web address] Plan Of Care PT-OP-T Assessment and Plan Start: 01/12/19 09:39 Freq: Status: Active Protocol: Document 01/11/19 16:00 DCW (Rec: 01/12/19 10:16 DCW [id number]) Physical Therapy Assessment Rehab Potential Rehabilitation Potential Good Evaluation Complexity Number of Personal Factors/Comorbidities 3 or More Number of Body Systems Impaired 3 Clinical Presentation at Evaluation Unstable Impairments Impairments Activity Tolerance Balance Functional Activities Functional Mobility Gait Pain Strength Other Concerns Fall Risk Increased falls risk per Matos (37/56), High falls risk per DGI (08/31) Goals Four Impairment Pt at a high falls risk Short Term Goal (STG) Pt to score at least 45 on the Matos Balance Scale STG Duration 02/11/19 Rotational Moulding Operator Goal (LTG) Pt to score at least 18 on DGI LTG Duration 03/13/19 Three Impairment Pt ambulates with SPC 100% of the time Rotational Moulding Operator Goal (LTG) Pt to feel comfortable ambulating with her cane less than 50% of the time LTG Duration 03/13/19 Two Impairment Falls Rotational Moulding Operator Goal (LTG) Pt to report no falls over a two months period LTG Duration 03/13/19 One Impairment Pt does not have an appropriate Home Exercise Program Short Term Goal (STG) Pt to be independent and complaint with an appropriate HEP STG Duration 02/11/19 Assessment Summary Assessment Pt presents with poor balance, LE weakness, and gait dysfunction resulting in an increased falls risk. Pt should benefit from skilled therapy focused on increasing LE strength, especially bilateral hip abductors/glute med, static and dynamic balance training, gait training, and pain control for her left knee. Pt's left knee appears to be her biggest limiting factor, and most of her LE weakness seems to be more weakness secondary to pain, rather than true muscle weakness. Physical Therapy Plan Frequency and Duration Frequency of Treatment 2x/Week Duration of Treatment 12 weeks Plan of Care Start Date 01/11/19 Plan of Care End Date 04/05/19 Therapeutic Interventions Therapeutic Interventions Aquatic Therapy Balance Training Gait Training Home Exercise Program Joint Mobilizations Manual Therapy Neuromuscular Re-education Patient/Caregiver Education Soft Tissue Mobilization Therapeutic Activities Therapeutic Exercises Modalities Cold Pack/Ice Massage Electric Stimulation Hot Packs Ultrasound Next Visit Focus/Plan Next Note Type Treatment Note Next Visit Plan LE strengthening, balance training Plan of Care Dates Plan of Care Start Date 01/11/19 Plan of Care End Date 04/05/19 Please Sign and Return: I have reviewed this Plan of Care and certify that the skilled therapy services above are required to meet the patient?s needs. Physician Signature Date Printed Name and Credentials Clinical Instructor Signature Printed Name and Credentials
--- NOTE | 2019-01-13 14:28 | PT.OTN ---
Current Diagnoses Pain in unspecified knee (01/13/19) Other abnormalities of gait and mobility (01/13/19) Physical Therapy Treatment Note PT-OP-A Visit Information Start: 01/12/19 09:39 Freq: Status: Active Protocol: Document 01/13/19 13:55 DCW (Rec: 01/13/19 14:28 DCW [id number]) Out-Patient Physical Therapy Visit Information Visit Information Visit Type Treatment Note Visit Note Pt arrived 10 minutes late Visit Start Time 13:55 Visit Stop Time 14:30 Total Visit Minutes 35 Visit Number 2 Number of HYDROGEOLOGY PROFESSOR Visits 0 Evaluation Information Evaluation Date 01/11/19 PT-OP-B Current Condition Start: 01/12/19 09:39 Freq: Status: Active Protocol: Document 01/11/19 16:00 DCW (Rec: 01/12/19 10:16 DCW [id number]) Current Condition History of Current Condition Onset Date Long-standing history Current Complaints Left knee pain and weakness, gait difficulty, imbalance History of Current Condition Pt is a 73 year old female well known to this clinic presenting with complaints of knee pain and worsening balance. Pt had previously been seen at this clinic for, among other things, vestibular rehabilitation, but she reports her imbalance now is entirely different, and she does not experience any vertigo, just feels very unstable. Notes that she now walks with a cane constantly, and I'm not happy about it. Pt reports she is taking a class at the [facility] about living with chronic conditions, and reports that it has really helped her organize her goals and expectations, but she still wants to walk normally. Pt admits to two fairly recent falls, one occurred when tripping over a low curb in a parking lot, and the most recent one occurred when she tripped over the completely flat floor at the [facility], fell into a table, and then landed on her knees. Pt also notes that over the last few years, she feels like there has been an increase in the numbness in her feet. Prior Functional Status Baseline Function- ADL's Modified Independent Baseline Function- Mobility Modified Independent Current Functional Impairments (Reported) Functional Limitations- Mobility/Gait Pt ambulates with a trendelenburg gait pattern and ambulates everywhere with her SPC Personal Factors Other Personal Factors That May Effect DM II, HTN, Arthritis, Therapy/Recovery Neuropathy, R TKA (2003), Hx Polio PT-OP-C Subjective Start: 01/12/19 09:39 Freq: Status: Active Protocol: Document 01/13/19 13:55 DCW (Rec: 01/13/19 14:28 DCW [id number]) OP-PT Subjective Patient Comments Patient Comments Pt reports that her hip abduction therex has been causing increased hip pain, and she does not want to do her current HEP, wants less aggravating exercises PT-OP-D Balance Start: 01/12/19 09:39 Freq: Status: Active Protocol: Document 01/11/19 16:00 DCW (Rec: 01/12/19 10:16 DCW [id number]) Balance Tests Matos Balance Test Matos Balance Test Score 37/56 Matos Impairment Rating 20 to 39% Impaired (Score 34- 44) Matos Balance Assessment Evaluation Sitting to Standing Ability Independent w/Hands Unsupported Stance Safely- 2 minutes Sitting Unsupported, Feet on Floor Safely- 2 minutes Standing to Sitting Ability Safely, Minimal Hand Use Transfer Ability Safely, Minimal Hand Use Unsupported Stance- Eyes Closed Safely, 10 seconds Unsupported Stance- Eyes Open Assist to attain, 15 secs Reaching Forward Standing Safely, 5 inches Pick- Up Object From Floor Supervision Look Behind Shoulder - Standing Turns Sideways Only Turning 360 Degrees Turns slowly, but safely Unsupported Stance, Alternating Feet on Assist to Prevent Fall Stair Unsupported Tandem Stance Small Step- 30 seconds Unilateral Leg Stance Lifts Leg/Unable to Hold Total Score Matos Total Score (out of 56 points) 37 Matos Impairment Rating 20 to 39% Impaired (Score 34- 44) PT-OP-E Functional Tests Start: 01/12/19 09:39 Freq: Status: Active Protocol: Document 01/11/19 16:00 DCW (Rec: 01/12/19 10:16 DCW [id number]) Functional Tests Dynamic Gait Index (DGI) Score 10/24 DGI Impairment Rating 40 to <60% Impaired (Score 10- 14) PT-OP-G Mobility & Gait Start: 01/12/19 09:39 Freq: Status: Active Protocol: Document 01/11/19 16:00 DCW (Rec: 01/12/19 10:16 DCW [id number]) OP Gait Assessment Gait Gait Assistance Required: Independent Able to Maintain Weight Bearing Status Yes During Gait Assistive Devices Assistive Device Straight Cane Orthotic/Prosthetic Devices or Brace: No Gait Deviations General Gait Pattern Antalgic Decreased Stride Length Lateral Trunk Lean Comments Gait Comments Trendelenburg gait pattern, lateral lean to compensate for Glute Med weakness Stair Climbing Evaluation Evaluation Level of Assist On Stairs Independent Devices Stair Climbing Assistive Devices Left Railing Right Railing Technique/Endurance Stair Climbing Direction Descend Stair Climbing Technique Step to Step Number of Steps Climbed 4 PT-OP-M Strength Start: 01/12/19 09:39 Freq: Status: Active Protocol: Document 01/11/19 16:00 DCW (Rec: 01/12/19 10:16 DCW [id number]) Hip Strength Hip Manual Muscle Testing Right Flexion (L2) 4- Good- Abduction 4- Good- Adduction 4 Good External Rotation 5 Normal Internal Rotation 5 Normal Left Flexion (L2) 4- Good- Abduction 4- Good- Adduction 4 Good External Rotation 4- Good- Internal Rotation 5 Normal Comments Pain in L knee with ER testing Knee Strength Knee Manual Muscle Testing Right Flexion (S2) 4+ Good+ Extension (L3) 4+ Good+ Left Flexion (S2) 4+ Good+ Extension (L3) 4- Good- Comments Resisted extension caused pain in left knee PT-OP-Q Treatments Start: 01/12/19 09:39 Freq: Status: Active Protocol: Document 01/13/19 13:55 DCW (Rec: 01/13/19 14:28 DCW [id number]) Cardio Equipment Recumbent Elliptical ([employer]) Duration (Minutes) 5 Resistance 3 Seat Position 9 Therapeutic Exercises Sitting Exercises Hip Abduction Sitting Exercise Name Abduction Side bilateral Resistance Lv 1 Equipment Used T-band Standing Exercises Hamstring Curls Standing Exercise Name Standing HS curls Side bilateral Equipment Used // bars Neuro Re-Education Treatment Balance Activities Tilt Board Details Tilt Board Comments Lateral tilt, Fwd/Bkwd tilt Tandem Ambulation Details Heel-toe walking Equipment // bars Narrow BREEZY Details Narrow BREEZY Surface Johnson foam Equipment // bars Comments EO/EC Tandem stance Details Heel-toe standing in // bars PT-OP-T Assessment and Plan Start: 01/12/19 09:39 Freq: Status: Active Protocol: Document 01/13/19 13:55 DCW (Rec: 01/13/19 14:28 DCW [id number]) Physical Therapy Assessment Impairments Impairments Activity Tolerance Balance Functional Activities Functional Mobility Gait Pain Strength Other Concerns Fall Risk Increased falls risk per Matos (37/56), High falls risk per DGI (08/31) Goals Four Impairment Pt at a high falls risk Short Term Goal (STG) Pt to score at least 45 on the Matos Balance Scale STG Duration 02/11/19 Peanut Roaster Goal (LTG) Pt to score at least 18 on DGI LTG Duration 03/13/19 Three Impairment Pt ambulates with SPC 100% of the time Jail Goal (LTG) Pt to feel comfortable ambulating with her cane less than 50% of the time LTG Duration 03/13/19 Two Impairment Falls Peanut Roaster Goal (LTG) Pt to report no falls over a two months period LTG Duration 03/13/19 One Impairment Pt does not have an appropriate Home Exercise Program Short Term Goal (STG) Pt to be independent and complaint with an appropriate HEP STG Duration 02/11/19 Assessment Summary Assessment Pt currently unable to tolerate most activity, admits that she is in terrible shape, and has to start at a very low level. Pt's left knee limited most of her activities in therapy today. Physical Therapy Plan Frequency and Duration Frequency of Treatment 2x/Week Duration of Treatment 12 weeks Plan of Care Start Date 01/11/19 Plan of Care End Date 04/05/19 Therapeutic Interventions Therapeutic Interventions Aquatic Therapy Balance Training Gait Training Home Exercise Program Joint Mobilizations Manual Therapy Neuromuscular Re-education Patient/Caregiver Education Soft Tissue Mobilization Therapeutic Activities Therapeutic Exercises Modalities Cold Pack/Ice Massage Electric Stimulation Hot Packs Ultrasound Next Visit Focus/Plan Next Note Type Treatment Note Next Visit Plan LE strengthening, balance training
--- NOTE | 2019-01-16 17:38 | PT.OTN ---
Current Diagnoses Pain in unspecified knee (01/16/19) Other abnormalities of gait and mobility (01/16/19) Physical Therapy Treatment Note PT-OP-A Visit Information Start: 01/12/19 09:39 Freq: Status: Active Protocol: Document 01/16/19 16:45 DCW (Rec: 01/16/19 17:38 DCW [id number]) Out-Patient Physical Therapy Visit Information Visit Information Visit Type Treatment Note Visit Start Time 16:45 Visit Stop Time 17:30 Total Visit Minutes 45 Visit Number 3 Number of CAT DRIVER Visits 0 Evaluation Information Evaluation Date 01/11/19 PT-OP-B Current Condition Start: 01/12/19 09:39 Freq: Status: Active Protocol: Document 01/11/19 16:00 DCW (Rec: 01/12/19 10:16 DCW [id number]) Current Condition History of Current Condition Onset Date Long-standing history Current Complaints Left knee pain and weakness, gait difficulty, imbalance History of Current Condition Pt is a 73 year old female well known to this clinic presenting with complaints of knee pain and worsening balance. Pt had previously been seen at this clinic for, among other things, vestibular rehabilitation, but she reports her imbalance now is entirely different, and she does not experience any vertigo, just feels very unstable. Notes that she now walks with a cane constantly, and I'm not happy about it. Pt reports she is taking a class at the [facility] about living with chronic conditions, and reports that it has really helped her organize her goals and expectations, but she still wants to walk normally. Pt admits to two fairly recent falls, one occurred when tripping over a low curb in a parking lot, and the most recent one occurred when she tripped over the completely flat floor at the [facility], fell into a table, and then landed on her knees. Pt also notes that over the last few years, she feels like there has been an increase in the numbness in her feet. Prior Functional Status Baseline Function- ADL's Modified Independent Baseline Function- Mobility Modified Independent Current Functional Impairments (Reported) Functional Limitations- Mobility/Gait Pt ambulates with a trendelenburg gait pattern and ambulates everywhere with her SPC Personal Factors Other Personal Factors That May Effect DM II, HTN, Arthritis, Therapy/Recovery Neuropathy, R TKA (2004), Hx Polio PT-OP-C Subjective Start: 01/12/19 09:39 Freq: Status: Active Protocol: Document 01/16/19 16:45 DCW (Rec: 01/16/19 17:38 DCW [id number]) OP-PT Subjective Patient Comments Patient Comments Pt notes that she did not feel as sore after her session on Wednesday as she did after her eval, and she has been able to do her HEP without as much pain. PT-OP-D Balance Start: 01/12/19 09:39 Freq: Status: Active Protocol: Document 01/11/19 16:00 DCW (Rec: 01/12/19 10:16 DCW [id number]) Balance Tests Matos Balance Test Matos Balance Test Score 37/56 Matos Impairment Rating 20 to 39% Impaired (Score 34- 44) Matos Balance Assessment Evaluation Sitting to Standing Ability Independent w/Hands Unsupported Stance Safely- 2 minutes Sitting Unsupported, Feet on Floor Safely- 2 minutes Standing to Sitting Ability Safely, Minimal Hand Use Transfer Ability Safely, Minimal Hand Use Unsupported Stance- Eyes Closed Safely, 10 seconds Unsupported Stance- Eyes Open Assist to attain, 15 secs Reaching Forward Standing Safely, 5 inches Pick- Up Object From Floor Supervision Look Behind Shoulder - Standing Turns Sideways Only Turning 360 Degrees Turns slowly, but safely Unsupported Stance, Alternating Feet on Assist to Prevent Fall Stair Unsupported Tandem Stance Small Step- 30 seconds Unilateral Leg Stance Lifts Leg/Unable to Hold Total Score Matos Total Score (out of 56 points) 37 Matos Impairment Rating 20 to 39% Impaired (Score 34- 44) PT-OP-E Functional Tests Start: 01/12/19 09:39 Freq: Status: Active Protocol: Document 01/11/19 16:00 DCW (Rec: 01/12/19 10:16 DCW [id number]) Functional Tests Dynamic Gait Index (DGI) Score 10/24 DGI Impairment Rating 40 to <60% Impaired (Score 10- 14) PT-OP-G Mobility & Gait Start: 01/12/19 09:39 Freq: Status: Active Protocol: Document 01/11/19 16:00 DCW (Rec: 01/12/19 10:16 DCW [id number]) OP Gait Assessment Gait Gait Assistance Required: Independent Able to Maintain Weight Bearing Status Yes During Gait Assistive Devices Assistive Device Straight Cane Orthotic/Prosthetic Devices or Brace: No Gait Deviations General Gait Pattern Antalgic Decreased Stride Length Lateral Trunk Lean Comments Gait Comments Trendelenburg gait pattern, lateral lean to compensate for Glute Med weakness Stair Climbing Evaluation Evaluation Level of Assist On Stairs Independent Devices Stair Climbing Assistive Devices Left Railing Right Railing Technique/Endurance Stair Climbing Direction Descend Stair Climbing Technique Step to Step Number of Steps Climbed 4 PT-OP-M Strength Start: 01/12/19 09:39 Freq: Status: Active Protocol: Document 01/11/19 16:00 DCW (Rec: 01/12/19 10:16 DCW [id number]) Hip Strength Hip Manual Muscle Testing Right Flexion (L2) 4- Good- Abduction 4- Good- Adduction 4 Good External Rotation 5 Normal Internal Rotation 5 Normal Left Flexion (L2) 4- Good- Abduction 4- Good- Adduction 4 Good External Rotation 4- Good- Internal Rotation 5 Normal Comments Pain in L knee with ER testing Knee Strength Knee Manual Muscle Testing Right Flexion (S2) 4+ Good+ Extension (L3) 4+ Good+ Left Flexion (S2) 4+ Good+ Extension (L3) 4- Good- Comments Resisted extension caused pain in left knee PT-OP-Q Treatments Start: 01/12/19 09:39 Freq: Status: Active Protocol: Document 01/16/19 16:45 DCW (Rec: 01/16/19 17:38 DCW [id number]) Cardio Equipment Recumbent Elliptical ([employer]) Duration (Minutes) 5 Resistance 3 Seat Position 9 Gym Equipment Shuttle Recovery Unilateral Squats Resistance 37# Shuttle Recovery Platform Stable Bilateral Squats Resistance 75# Shuttle Recovery Platform Stable Therapeutic Exercises Standing Exercises Heel/Toe Raises Standing Exercise Name Heel/toe raises Side bilateral Hip Extension Standing Exercise Name Hip Extension Side bilateral Resistance Lv 1 Equipment Used T-band Hamstring Curls Standing Exercise Name Standing HS curls Side bilateral Equipment Used // bars Other Exercises Resisted Side-stepping Other Exercise Name Resisted Side-stepping Side bilateral Resistance Yellow Equipment Used T-band PT-OP-T Assessment and Plan Start: 01/12/19 09:39 Freq: Status: Active Protocol: Document 01/16/19 16:45 DCW (Rec: 01/16/19 17:38 DCW [id number]) Physical Therapy Assessment Impairments Impairments Activity Tolerance Balance Functional Activities Functional Mobility Gait Pain Strength Other Concerns Fall Risk Increased falls risk per Matos (37/56), High falls risk per DGI (08/31) Goals Four Impairment Pt at a high falls risk Short Term Goal (STG) Pt to score at least 45 on the Matos Balance Scale STG Duration 02/11/19 Fpc Goal (LTG) Pt to score at least 18 on DGI LTG Duration 03/13/19 Three Impairment Pt ambulates with SPC 100% of the time Fpc Goal (LTG) Pt to feel comfortable ambulating with her cane less than 50% of the time LTG Duration 03/13/19 Two Impairment Falls Master Printer Goal (LTG) Pt to report no falls over a two months period LTG Duration 03/13/19 One Impairment Pt does not have an appropriate Home Exercise Program Short Term Goal (STG) Pt to be independent and complaint with an appropriate HEP STG Duration 02/11/19 Assessment Summary Assessment Pt doing a little better today , improved mobility and improved tolerance to activity . Physical Therapy Plan Frequency and Duration Frequency of Treatment 2x/Week Duration of Treatment 12 weeks Plan of Care Start Date 01/11/19 Plan of Care End Date 04/05/19 Therapeutic Interventions Therapeutic Interventions Aquatic Therapy Balance Training Gait Training Home Exercise Program Joint Mobilizations Manual Therapy Neuromuscular Re-education Patient/Caregiver Education Soft Tissue Mobilization Therapeutic Activities Therapeutic Exercises Modalities Cold Pack/Ice Massage Electric Stimulation Hot Packs Ultrasound Next Visit Focus/Plan Next Note Type Treatment Note Next Visit Plan LE strengthening, balance training
--- NOTE | 2019-01-20 14:35 | PT.OTN ---
Current Diagnoses Pain in unspecified knee (01/20/19) Other abnormalities of gait and mobility (01/20/19) Physical Therapy Treatment Note PT-OP-A Visit Information Start: 01/12/19 09:39 Freq: Status: Active Protocol: Document 01/20/19 13:50 DCW (Rec: 01/20/19 14:35 DCW [id number]) Out-Patient Physical Therapy Visit Information Visit Information Visit Type Treatment Note Visit Note Pt arrived 5 minutes late Visit Start Time 13:50 Visit Stop Time 14:30 Total Visit Minutes 40 Visit Number 4 Number of CRITICAL SYSTEMS TECHNICIAN Visits 0 Evaluation Information Evaluation Date 01/11/19 PT-OP-B Current Condition Start: 01/12/19 09:39 Freq: Status: Active Protocol: Document 01/11/19 16:00 DCW (Rec: 01/12/19 10:16 DCW [id number]) Current Condition History of Current Condition Onset Date Long-standing history Current Complaints Left knee pain and weakness, gait difficulty, imbalance History of Current Condition Pt is a 73 year old female well known to this clinic presenting with complaints of knee pain and worsening balance. Pt had previously been seen at this clinic for, among other things, vestibular rehabilitation, but she reports her imbalance now is entirely different, and she does not experience any vertigo, just feels very unstable. Notes that she now walks with a cane constantly, and I'm not happy about it. Pt reports she is taking a class at the [facility] about living with chronic conditions, and reports that it has really helped her organize her goals and expectations, but she still wants to walk normally. Pt admits to two fairly recent falls, one occurred when tripping over a low curb in a parking lot, and the most recent one occurred when she tripped over the completely flat floor at the [facility], fell into a table, and then landed on her knees. Pt also notes that over the last few years, she feels like there has been an increase in the numbness in her feet. Prior Functional Status Baseline Function- ADL's Modified Independent Baseline Function- Mobility Modified Independent Current Functional Impairments (Reported) Functional Limitations- Mobility/Gait Pt ambulates with a trendelenburg gait pattern and ambulates everywhere with her SPC Personal Factors Other Personal Factors That May Effect DM II, HTN, Arthritis, Therapy/Recovery Neuropathy, R TKA (2003), Hx Polio PT-OP-C Subjective Start: 01/12/19 09:39 Freq: Status: Active Protocol: Document 01/20/19 13:50 DCW (Rec: 01/20/19 14:35 DCW [id number]) OP-PT Subjective Patient Comments Patient Comments Pt reports she is more handicapped than normal today , 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 PT-OP-D Balance Start: 01/12/19 09:39 Freq: Status: Active Protocol: Document 01/11/19 16:00 DCW (Rec: 01/12/19 10:16 DCW [id number]) Balance Tests Matos Balance Test Matos Balance Test Score 37/56 Matos Impairment Rating 20 to 39% Impaired (Score 34- 44) Matos Balance Assessment Evaluation Sitting to Standing Ability Independent w/Hands Unsupported Stance Safely- 2 minutes Sitting Unsupported, Feet on Floor Safely- 2 minutes Standing to Sitting Ability Safely, Minimal Hand Use Transfer Ability Safely, Minimal Hand Use Unsupported Stance- Eyes Closed Safely, 10 seconds Unsupported Stance- Eyes Open Assist to attain, 15 secs Reaching Forward Standing Safely, 5 inches Pick- Up Object From Floor Supervision Look Behind Shoulder - Standing Turns Sideways Only Turning 360 Degrees Turns slowly, but safely Unsupported Stance, Alternating Feet on Assist to Prevent Fall Stair Unsupported Tandem Stance Small Step- 30 seconds Unilateral Leg Stance Lifts Leg/Unable to Hold Total Score Matos Total Score (out of 56 points) 37 Matos Impairment Rating 20 to 39% Impaired (Score 34- 44) PT-OP-E Functional Tests Start: 01/12/19 09:39 Freq: Status: Active Protocol: Document 01/11/19 16:00 DCW (Rec: 01/12/19 10:16 DCW [id number]) Functional Tests Dynamic Gait Index (DGI) Score 10/24 DGI Impairment Rating 40 to <60% Impaired (Score 10- 14) PT-OP-G Mobility & Gait Start: 01/12/19 09:39 Freq: Status: Active Protocol: Document 01/11/19 16:00 DCW (Rec: 01/12/19 10:16 DCW [id number]) OP Gait Assessment Gait Gait Assistance Required: Independent Able to Maintain Weight Bearing Status Yes During Gait Assistive Devices Assistive Device Straight Cane Orthotic/Prosthetic Devices or Brace: No Gait Deviations General Gait Pattern Antalgic Decreased Stride Length Lateral Trunk Lean Comments Gait Comments Trendelenburg gait pattern, lateral lean to compensate for Glute Med weakness Stair Climbing Evaluation Evaluation Level of Assist On Stairs Independent Devices Stair Climbing Assistive Devices Left Railing Right Railing Technique/Endurance Stair Climbing Direction Descend Stair Climbing Technique Step to Step Number of Steps Climbed 4 PT-OP-M Strength Start: 01/12/19 09:39 Freq: Status: Active Protocol: Document 01/11/19 16:00 DCW (Rec: 01/12/19 10:16 DCW [id number]) Hip Strength Hip Manual Muscle Testing Right Flexion (L2) 4- Good- Abduction 4- Good- Adduction 4 Good External Rotation 5 Normal Internal Rotation 5 Normal Left Flexion (L2) 4- Good- Abduction 4- Good- Adduction 4 Good External Rotation 4- Good- Internal Rotation 5 Normal Comments Pain in L knee with ER testing Knee Strength Knee Manual Muscle Testing Right Flexion (S2) 4+ Good+ Extension (L3) 4+ Good+ Left Flexion (S2) 4+ Good+ Extension (L3) 4- Good- Comments Resisted extension caused pain in left knee PT-OP-Q Treatments Start: 01/12/19 09:39 Freq: Status: Active Protocol: Document 01/20/19 13:50 DCW (Rec: 01/20/19 14:35 DCW [id number]) Cardio Equipment Recumbent Elliptical ([employer]) Duration (Minutes) 5 Resistance 3 Seat Position 9 Gym Equipment Shuttle Recovery Unilateral Squats Resistance 37# Shuttle Recovery Platform Stable Bilateral Squats Resistance 75# Shuttle Recovery Platform Stable Therapeutic Exercises Sitting Exercises Seated Marching Sitting Exercise Name Marching Side bilateral Resistance 4# Equipment Used Ankle Weights Short Arc Quad Sitting Exercise Name SAQ Side bilateral Resistance 4# Equipment Used Ankle Weights Standing Exercises Step-ups Standing Exercise Name Step-ups Side bilateral Equipment Used 4 step Heel/Toe Raises Standing Exercise Name Heel/toe raises Side bilateral Hip Extension Standing Exercise Name Hip Extension Side bilateral Resistance Lv 2 Equipment Used T-band Other Exercises Resisted Side-stepping Other Exercise Name Resisted Side-stepping Side bilateral Resistance Yellow Equipment Used T-band Neuro Re-Education Treatment Balance Activities Tilt Board Details Tilt Board Comments Lateral tilt, Fwd/Bkwd tilt Tandem Ambulation Details Heel-toe walking Equipment // bars PT-OP-T Assessment and Plan Start: 01/12/19 09:39 Freq: Status: Active Protocol: Document 01/20/19 13:50 DCW (Rec: 01/20/19 14:35 DCW [id number]) Physical Therapy Assessment Impairments Impairments Activity Tolerance Balance Functional Activities Functional Mobility Gait Pain Strength Other Concerns Fall Risk Increased falls risk per Matos (37/56), High falls risk per DGI (08/31) Goals Four Impairment Pt at a high falls risk Short Term Goal (STG) Pt to score at least 45 on the Matos Balance Scale STG Duration 02/11/19 Probation Agent Goal (LTG) Pt to score at least 18 on DGI LTG Duration 03/13/19 Three Impairment Pt ambulates with SPC 100% of the time Assisted Goal (LTG) Pt to feel comfortable ambulating with her cane less than 50% of the time LTG Duration 03/13/19 Two Impairment Falls Assisted Goal (LTG) Pt to report no falls over a two months period LTG Duration 03/13/19 One Impairment Pt does not have an appropriate Home Exercise Program Short Term Goal (STG) Pt to be independent and complaint with an appropriate HEP STG Duration 02/11/19 Assessment Summary Assessment Pt had some increased difficulty 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 Physical Therapy Plan Frequency and Duration Frequency of Treatment 2x/Week Duration of Treatment 12 weeks Plan of Care Start Date 01/11/19 Plan of Care End Date 04/05/19 Therapeutic Interventions Therapeutic Interventions Aquatic Therapy Balance Training Gait Training Home Exercise Program Joint Mobilizations Manual Therapy Neuromuscular Re-education Patient/Caregiver Education Soft Tissue Mobilization Therapeutic Activities Therapeutic Exercises Modalities Cold Pack/Ice Massage Electric Stimulation Hot Packs Ultrasound Next Visit Focus/Plan Next Note Type Treatment Note Next Visit Plan LE strengthening, balance training
--- NOTE | 2019-01-27 14:30 | PT.OTN ---
Current Diagnoses Pain in unspecified knee (01/27/19) Other abnormalities of gait and mobility (01/27/19) Physical Therapy Treatment Note PT-OP-A Visit Information Start: 01/12/19 09:39 Freq: Status: Active Protocol: Document 01/27/19 14:00 DCW (Rec: 01/27/19 14:30 DCW [id number]) Out-Patient Physical Therapy Visit Information Visit Information Visit Type Treatment Note Visit Note Pt arrived 15 minutes late Visit Start Time 14:00 Visit Stop Time 14:30 Total Visit Minutes 35 Visit Number 5 Number of HEAD OF ENGLISH Visits 0 Evaluation Information Evaluation Date 01/11/19 PT-OP-B Current Condition Start: 01/12/19 09:39 Freq: Status: Active Protocol: Document 01/11/19 16:00 DCW (Rec: 01/12/19 10:16 DCW [id number]) Current Condition History of Current Condition Onset Date Long-standing history Current Complaints Left knee pain and weakness, gait difficulty, imbalance History of Current Condition Pt is a 73 year old female well known to this clinic presenting with complaints of knee pain and worsening balance. Pt had previously been seen at this clinic for, among other things, vestibular rehabilitation, but she reports her imbalance now is entirely different, and she does not experience any vertigo, just feels very unstable. Notes that she now walks with a cane constantly, and I'm not happy about it. Pt reports she is taking a class at the [facility] about living with chronic conditions, and reports that it has really helped her organize her goals and expectations, but she still wants to walk normally. Pt admits to two fairly recent falls, one occurred when tripping over a low curb in a parking lot, and the most recent one occurred when she tripped over the completely flat floor at the [facility], fell into a table, and then landed on her knees. Pt also notes that over the last few years, she feels like there has been an increase in the numbness in her feet. Prior Functional Status Baseline Function- ADL's Modified Independent Baseline Function- Mobility Modified Independent Current Functional Impairments (Reported) Functional Limitations- Mobility/Gait Pt ambulates with a trendelenburg gait pattern and ambulates everywhere with her SPC Personal Factors Other Personal Factors That May Effect DM II, HTN, Arthritis, Therapy/Recovery Neuropathy, R TKA (2003), Hx Polio PT-OP-C Subjective Start: 01/12/19 09:39 Freq: Status: Active Protocol: Document 01/27/19 14:00 DCW (Rec: 01/27/19 14:30 DCW [id number]) OP-PT Subjective Patient Comments Patient Comments I can only tolerate a half hour, I about killed myself on Wednesday. That's not why I'm late, I'm just slow getting ready. Pt reports that she was at a [employer], and really over- did it. PT-OP-D Balance Start: 01/12/19 09:39 Freq: Status: Active Protocol: Document 01/11/19 16:00 DCW (Rec: 01/12/19 10:16 DCW [id number]) Balance Tests Matos Balance Test Matos Balance Test Score 37/56 Matos Impairment Rating 20 to 39% Impaired (Score 34- 44) Matos Balance Assessment Evaluation Sitting to Standing Ability Independent w/Hands Unsupported Stance Safely- 2 minutes Sitting Unsupported, Feet on Floor Safely- 2 minutes Standing to Sitting Ability Safely, Minimal Hand Use Transfer Ability Safely, Minimal Hand Use Unsupported Stance- Eyes Closed Safely, 10 seconds Unsupported Stance- Eyes Open Assist to attain, 15 secs Reaching Forward Standing Safely, 5 inches Pick- Up Object From Floor Supervision Look Behind Shoulder - Standing Turns Sideways Only Turning 360 Degrees Turns slowly, but safely Unsupported Stance, Alternating Feet on Assist to Prevent Fall Stair Unsupported Tandem Stance Small Step- 30 seconds Unilateral Leg Stance Lifts Leg/Unable to Hold Total Score Matos Total Score (out of 56 points) 37 Matos Impairment Rating 20 to 39% Impaired (Score 34- 44) PT-OP-E Functional Tests Start: 01/12/19 09:39 Freq: Status: Active Protocol: Document 01/11/19 16:00 DCW (Rec: 01/12/19 10:16 DCW [id number]) Functional Tests Dynamic Gait Index (DGI) Score 10/24 DGI Impairment Rating 40 to <60% Impaired (Score 10- 14) PT-OP-G Mobility & Gait Start: 01/12/19 09:39 Freq: Status: Active Protocol: Document 01/11/19 16:00 DCW (Rec: 01/12/19 10:16 DCW [id number]) OP Gait Assessment Gait Gait Assistance Required: Independent Able to Maintain Weight Bearing Status Yes During Gait Assistive Devices Assistive Device Straight Cane Orthotic/Prosthetic Devices or Brace: No Gait Deviations General Gait Pattern Antalgic Decreased Stride Length Lateral Trunk Lean Comments Gait Comments Trendelenburg gait pattern, lateral lean to compensate for Glute Med weakness Stair Climbing Evaluation Evaluation Level of Assist On Stairs Independent Devices Stair Climbing Assistive Devices Left Railing Right Railing Technique/Endurance Stair Climbing Direction Descend Stair Climbing Technique Step to Step Number of Steps Climbed 4 PT-OP-M Strength Start: 01/12/19 09:39 Freq: Status: Active Protocol: Document 01/11/19 16:00 DCW (Rec: 01/12/19 10:16 DCW [id number]) Hip Strength Hip Manual Muscle Testing Right Flexion (L2) 4- Good- Abduction 4- Good- Adduction 4 Good External Rotation 5 Normal Internal Rotation 5 Normal Left Flexion (L2) 4- Good- Abduction 4- Good- Adduction 4 Good External Rotation 4- Good- Internal Rotation 5 Normal Comments Pain in L knee with ER testing Knee Strength Knee Manual Muscle Testing Right Flexion (S2) 4+ Good+ Extension (L3) 4+ Good+ Left Flexion (S2) 4+ Good+ Extension (L3) 4- Good- Comments Resisted extension caused pain in left knee PT-OP-Q Treatments Start: 01/12/19 09:39 Freq: Status: Active Protocol: Document 01/27/19 14:00 DCW (Rec: 01/27/19 14:30 DCW [id number]) Cardio Equipment Recumbent Elliptical ([employer]) Duration (Minutes) 5 Resistance 3 Seat Position 9 Gym Equipment Shuttle Recovery Unilateral Squats Resistance 37# Shuttle Recovery Platform Stable Bilateral Squats Resistance 75# Shuttle Recovery Platform Stable Therapeutic Exercises Standing Exercises Heel/Toe Raises Standing Exercise Name Heel/toe raises Side bilateral Hip Extension Standing Exercise Name Hip Extension Side bilateral Resistance Lv 2 Equipment Used T-band Reps/Minutes x15 Hamstring Curls Standing Exercise Name Standing HS curls Side bilateral Equipment Used // bars Other Exercises Resisted Side-stepping Other Exercise Name Resisted Side-stepping Side bilateral Resistance Yellow Equipment Used T-band Gait Training Gait Activity Stairs Description Ascend/Descend Device Used B Rail Level of Assistance SBA Distance/Duration 4 steps x2 PT-OP-T Assessment and Plan Start: 01/12/19 09:39 Freq: Status: Active Protocol: Document 01/27/19 14:00 DCW (Rec: 01/27/19 14:30 DCW [id number]) Physical Therapy Assessment Impairments Impairments Activity Tolerance Balance Functional Activities Functional Mobility Gait Pain Strength Other Concerns Fall Risk Increased falls risk per Matos (37/56), High falls risk per DGI (08/31) Goals Four Impairment Pt at a high falls risk Short Term Goal (STG) Pt to score at least 45 on the Matos Balance Scale STG Duration 02/11/19 Longterm Goal (LTG) Pt to score at least 18 on DGI LTG Duration 03/13/19 Three Impairment Pt ambulates with SPC 100% of the time Longterm Goal (LTG) Pt to feel comfortable ambulating with her cane less than 50% of the time LTG Duration 03/13/19 Two Impairment Falls Longterm Goal (LTG) Pt to report no falls over a two months period LTG Duration 03/13/19 One Impairment Pt does not have an appropriate Home Exercise Program Short Term Goal (STG) Pt to be independent and complaint with an appropriate HEP STG Duration 02/11/19 Assessment Summary Assessment Pt had a shortened session today due to her late arrival, however she was able to tolerate a full 30 minutes without requiring a rest break . Physical Therapy Plan Frequency and Duration Frequency of Treatment 2x/Week Duration of Treatment 12 weeks Plan of Care Start Date 01/11/19 Plan of Care End Date 04/05/19 Therapeutic Interventions Therapeutic Interventions Aquatic Therapy Balance Training Gait Training Home Exercise Program Joint Mobilizations Manual Therapy Neuromuscular Re-education Patient/Caregiver Education Soft Tissue Mobilization Therapeutic Activities Therapeutic Exercises Modalities Cold Pack/Ice Massage Electric Stimulation Hot Packs Ultrasound Next Visit Focus/Plan Next Note Type Treatment Note Next Visit Plan LE strengthening, balance training
--- NOTE | 2019-01-30 16:07 | PT.OTN ---
Current Diagnoses Pain in unspecified knee (01/30/19) Other abnormalities of gait and mobility (01/30/19) Physical Therapy Treatment Note PT-OP-A Visit Information Start: 01/12/19 09:39 Freq: Status: Active Protocol: Document 01/30/19 15:22 DCW (Rec: 01/30/19 16:07 DCW [id number]) Out-Patient Physical Therapy Visit Information Visit Information Visit Type Treatment Note Visit Note Pt arrived 7 minutes late Visit Start Time 15:22 Visit Stop Time 16:02 Total Visit Minutes 40 Visit Number 6 Number of HOME DECORATOR Visits 0 Evaluation Information Evaluation Date 01/11/19 PT-OP-B Current Condition Start: 01/12/19 09:39 Freq: Status: Active Protocol: Document 01/11/19 16:00 DCW (Rec: 01/12/19 10:16 DCW [id number]) Current Condition History of Current Condition Onset Date Long-standing history Current Complaints Left knee pain and weakness, gait difficulty, imbalance History of Current Condition Pt is a 73 year old female well known to this clinic presenting with complaints of knee pain and worsening balance. Pt had previously been seen at this clinic for, among other things, vestibular rehabilitation, but she reports her imbalance now is entirely different, and she does not experience any vertigo, just feels very unstable. Notes that she now walks with a cane constantly, and I'm not happy about it. Pt reports she is taking a class at the [facility] about living with chronic conditions, and reports that it has really helped her organize her goals and expectations, but she still wants to walk normally. Pt admits to two fairly recent falls, one occurred when tripping over a low curb in a parking lot, and the most recent one occurred when she tripped over the completely flat floor at the [facility], fell into a table, and then landed on her knees. Pt also notes that over the last few years, she feels like there has been an increase in the numbness in her feet. Prior Functional Status Baseline Function- ADL's Modified Independent Baseline Function- Mobility Modified Independent Current Functional Impairments (Reported) Functional Limitations- Mobility/Gait Pt ambulates with a trendelenburg gait pattern and ambulates everywhere with her SPC Personal Factors Other Personal Factors That May Effect DM II, HTN, Arthritis, Therapy/Recovery Neuropathy, R TKA (2003), Hx Polio PT-OP-C Subjective Start: 01/12/19 09:39 Freq: Status: Active Protocol: Document 01/30/19 15:22 DCW (Rec: 01/30/19 16:07 DCW [id number]) OP-PT Subjective Patient Comments Patient Comments Pt reports that she is not doing well today, but I made it here. Just to let you know, if I fall over, by back has been bothering me. PT-OP-D Balance Start: 01/12/19 09:39 Freq: Status: Active Protocol: Document 01/11/19 16:00 DCW (Rec: 01/12/19 10:16 DCW [id number]) Balance Tests Matos Balance Test Matos Balance Test Score 37/56 Matos Impairment Rating 20 to 39% Impaired (Score 34- 44) Matos Balance Assessment Evaluation Sitting to Standing Ability Independent w/Hands Unsupported Stance Safely- 2 minutes Sitting Unsupported, Feet on Floor Safely- 2 minutes Standing to Sitting Ability Safely, Minimal Hand Use Transfer Ability Safely, Minimal Hand Use Unsupported Stance- Eyes Closed Safely, 10 seconds Unsupported Stance- Eyes Open Assist to attain, 15 secs Reaching Forward Standing Safely, 5 inches Pick- Up Object From Floor Supervision Look Behind Shoulder - Standing Turns Sideways Only Turning 360 Degrees Turns slowly, but safely Unsupported Stance, Alternating Feet on Assist to Prevent Fall Stair Unsupported Tandem Stance Small Step- 30 seconds Unilateral Leg Stance Lifts Leg/Unable to Hold Total Score Matos Total Score (out of 56 points) 37 Matos Impairment Rating 20 to 39% Impaired (Score 34- 44) PT-OP-E Functional Tests Start: 01/12/19 09:39 Freq: Status: Active Protocol: Document 01/11/19 16:00 DCW (Rec: 01/12/19 10:16 DCW [id number]) Functional Tests Dynamic Gait Index (DGI) Score 10/24 DGI Impairment Rating 40 to <60% Impaired (Score 10- 14) PT-OP-G Mobility & Gait Start: 01/12/19 09:39 Freq: Status: Active Protocol: Document 01/11/19 16:00 DCW (Rec: 01/12/19 10:16 DCW [id number]) OP Gait Assessment Gait Gait Assistance Required: Independent Able to Maintain Weight Bearing Status Yes During Gait Assistive Devices Assistive Device Straight Cane Orthotic/Prosthetic Devices or Brace: No Gait Deviations General Gait Pattern Antalgic Decreased Stride Length Lateral Trunk Lean Comments Gait Comments Trendelenburg gait pattern, lateral lean to compensate for Glute Med weakness Stair Climbing Evaluation Evaluation Level of Assist On Stairs Independent Devices Stair Climbing Assistive Devices Left Railing Right Railing Technique/Endurance Stair Climbing Direction Descend Stair Climbing Technique Step to Step Number of Steps Climbed 4 PT-OP-M Strength Start: 01/12/19 09:39 Freq: Status: Active Protocol: Document 01/11/19 16:00 DCW (Rec: 01/12/19 10:16 DCW [id number]) Hip Strength Hip Manual Muscle Testing Right Flexion (L2) 4- Good- Abduction 4- Good- Adduction 4 Good External Rotation 5 Normal Internal Rotation 5 Normal Left Flexion (L2) 4- Good- Abduction 4- Good- Adduction 4 Good External Rotation 4- Good- Internal Rotation 5 Normal Comments Pain in L knee with ER testing Knee Strength Knee Manual Muscle Testing Right Flexion (S2) 4+ Good+ Extension (L3) 4+ Good+ Left Flexion (S2) 4+ Good+ Extension (L3) 4- Good- Comments Resisted extension caused pain in left knee PT-OP-Q Treatments Start: 01/12/19 09:39 Freq: Status: Active Protocol: Document 01/30/19 15:22 DCW (Rec: 01/30/19 16:07 DCW [id number]) Cardio Equipment Recumbent Elliptical ([employer]) Duration (Minutes) 5 Resistance 3 Seat Position 9 Gym Equipment Shuttle Recovery Unilateral Squats Resistance 50# Shuttle Recovery Platform Stable Bilateral Squats Resistance 100# Shuttle Recovery Platform Stable Shuttle Balance Red Details Wide BREEZY Therapeutic Exercises Other Exercises Resisted Side-stepping Other Exercise Name Resisted Side-stepping Side bilateral Resistance Yellow Equipment Used T-band Neuro Re-Education Treatment Balance Activities Narrow BREEZY Details Narrow BREEZY Surface Johnson foam Comments EO/EC, Horiz/Vert Head Turns PT-OP-T Assessment and Plan Start: 01/12/19 09:39 Freq: Status: Active Protocol: Document 01/30/19 15:22 DCW (Rec: 01/30/19 16:07 DCW [id number]) Physical Therapy Assessment Impairments Impairments Activity Tolerance Balance Functional Activities Functional Mobility Gait Pain Strength Other Concerns Fall Risk Increased falls risk per Matos (37/56), High falls risk per DGI (08/31) Goals Four Impairment Pt at a high falls risk Short Term Goal (STG) Pt to score at least 45 on the Matos Balance Scale STG Duration 02/11/19 [facility] Goal (LTG) Pt to score at least 18 on DGI LTG Duration 03/13/19 Three Impairment Pt ambulates with SPC 100% of the time [facility] Goal (LTG) Pt to feel comfortable ambulating with her cane less than 50% of the time LTG Duration 03/13/19 Two Impairment Falls [facility] Goal (LTG) Pt to report no falls over a two months period LTG Duration 03/13/19 One Impairment Pt does not have an appropriate Home Exercise Program Short Term Goal (STG) Pt to be independent and complaint with an appropriate HEP STG Duration 02/11/19 Assessment Summary Assessment Pt had a good visit today, able to tolerate activity with no rest breaks. Pt did well for her first time using Shuttle Balance Physical Therapy Plan Frequency and Duration Frequency of Treatment 2x/Week Duration of Treatment 12 weeks Plan of Care Start Date 01/11/19 Plan of Care End Date 04/05/19 Therapeutic Interventions Therapeutic Interventions Aquatic Therapy Balance Training Gait Training Home Exercise Program Joint Mobilizations Manual Therapy Neuromuscular Re-education Patient/Caregiver Education Soft Tissue Mobilization Therapeutic Activities Therapeutic Exercises Modalities Cold Pack/Ice Massage Electric Stimulation Hot Packs Ultrasound Next Visit Focus/Plan Next Note Type Treatment Note Next Visit Plan LE strengthening, balance training
--- NOTE | 2019-02-03 14:27 | PT.OTN ---
Current Diagnoses Pain in unspecified knee (02/03/19) Other abnormalities of gait and mobility (02/03/19) Physical Therapy Treatment Note PT-OP-A Visit Information Start: 01/12/19 09:39 Freq: Status: Active Protocol: Document 02/03/19 13:55 DCW (Rec: 02/03/19 14:27 DCW [id number]) Out-Patient Physical Therapy Visit Information Visit Information Visit Type Treatment Note Visit Note Pt arrived 10 minutes late Visit Start Time 13:55 Visit Stop Time 14:30 Total Visit Minutes 35 Visit Number 7 Number of SHEAR HELPER Visits 0 Evaluation Information Evaluation Date 01/11/19 PT-OP-B Current Condition Start: 01/12/19 09:39 Freq: Status: Active Protocol: Document 01/11/19 16:00 DCW (Rec: 01/12/19 10:16 DCW [id number]) Current Condition History of Current Condition Onset Date Long-standing history Current Complaints Left knee pain and weakness, gait difficulty, imbalance History of Current Condition Pt is a 73 year old female well known to this clinic presenting with complaints of knee pain and worsening balance. Pt had previously been seen at this clinic for, among other things, vestibular rehabilitation, but she reports her imbalance now is entirely different, and she does not experience any vertigo, just feels very unstable. Notes that she now walks with a cane constantly, and I'm not happy about it. Pt reports she is taking a class at the [facility] about living with chronic conditions, and reports that it has really helped her organize her goals and expectations, but she still wants to walk normally. Pt admits to two fairly recent falls, one occurred when tripping over a low curb in a parking lot, and the most recent one occurred when she tripped over the completely flat floor at the [facility], fell into a table, and then landed on her knees. Pt also notes that over the last few years, she feels like there has been an increase in the numbness in her feet. Prior Functional Status Baseline Function- ADL's Modified Independent Baseline Function- Mobility Modified Independent Current Functional Impairments (Reported) Functional Limitations- Mobility/Gait Pt ambulates with a trendelenburg gait pattern and ambulates everywhere with her SPC Personal Factors Other Personal Factors That May Effect DM II, HTN, Arthritis, Therapy/Recovery Neuropathy, R TKA (2003), Hx Polio PT-OP-C Subjective Start: 01/12/19 09:39 Freq: Status: Active Protocol: Document 02/03/19 13:55 DCW (Rec: 02/03/19 14:27 DCW [id number]) OP-PT Subjective Patient Comments Patient Comments I feel like somebody tried to kill me with a baseball bat. PT-OP-D Balance Start: 01/12/19 09:39 Freq: Status: Active Protocol: Document 01/11/19 16:00 DCW (Rec: 01/12/19 10:16 DCW [id number]) Balance Tests Matos Balance Test Matos Balance Test Score 37/56 Matos Impairment Rating 20 to 39% Impaired (Score 34- 44) Matos Balance Assessment Evaluation Sitting to Standing Ability Independent w/Hands Unsupported Stance Safely- 2 minutes Sitting Unsupported, Feet on Floor Safely- 2 minutes Standing to Sitting Ability Safely, Minimal Hand Use Transfer Ability Safely, Minimal Hand Use Unsupported Stance- Eyes Closed Safely, 10 seconds Unsupported Stance- Eyes Open Assist to attain, 15 secs Reaching Forward Standing Safely, 5 inches Pick- Up Object From Floor Supervision Look Behind Shoulder - Standing Turns Sideways Only Turning 360 Degrees Turns slowly, but safely Unsupported Stance, Alternating Feet on Assist to Prevent Fall Stair Unsupported Tandem Stance Small Step- 30 seconds Unilateral Leg Stance Lifts Leg/Unable to Hold Total Score Matos Total Score (out of 56 points) 37 Matos Impairment Rating 20 to 39% Impaired (Score 34- 44) PT-OP-E Functional Tests Start: 01/12/19 09:39 Freq: Status: Active Protocol: Document 01/11/19 16:00 DCW (Rec: 01/12/19 10:16 DCW [id number]) Functional Tests Dynamic Gait Index (DGI) Score 10/24 DGI Impairment Rating 40 to <60% Impaired (Score 10- 14) PT-OP-G Mobility & Gait Start: 01/12/19 09:39 Freq: Status: Active Protocol: Document 01/11/19 16:00 DCW (Rec: 01/12/19 10:16 DCW [id number]) OP Gait Assessment Gait Gait Assistance Required: Independent Able to Maintain Weight Bearing Status Yes During Gait Assistive Devices Assistive Device Straight Cane Orthotic/Prosthetic Devices or Brace: No Gait Deviations General Gait Pattern Antalgic Decreased Stride Length Lateral Trunk Lean Comments Gait Comments Trendelenburg gait pattern, lateral lean to compensate for Glute Med weakness Stair Climbing Evaluation Evaluation Level of Assist On Stairs Independent Devices Stair Climbing Assistive Devices Left Railing Right Railing Technique/Endurance Stair Climbing Direction Descend Stair Climbing Technique Step to Step Number of Steps Climbed 4 PT-OP-M Strength Start: 01/12/19 09:39 Freq: Status: Active Protocol: Document 01/11/19 16:00 DCW (Rec: 01/12/19 10:16 DCW [id number]) Hip Strength Hip Manual Muscle Testing Right Flexion (L2) 4- Good- Abduction 4- Good- Adduction 4 Good External Rotation 5 Normal Internal Rotation 5 Normal Left Flexion (L2) 4- Good- Abduction 4- Good- Adduction 4 Good External Rotation 4- Good- Internal Rotation 5 Normal Comments Pain in L knee with ER testing Knee Strength Knee Manual Muscle Testing Right Flexion (S2) 4+ Good+ Extension (L3) 4+ Good+ Left Flexion (S2) 4+ Good+ Extension (L3) 4- Good- Comments Resisted extension caused pain in left knee PT-OP-Q Treatments Start: 01/12/19 09:39 Freq: Status: Active Protocol: Document 02/03/19 13:55 DCW (Rec: 02/03/19 14:27 DCW [id number]) Cardio Equipment Recumbent Elliptical ([employer]) Duration (Minutes) 5 Resistance 3 Seat Position 9 Gym Equipment Shuttle Recovery Unilateral Squats Resistance 50# Shuttle Recovery Platform Stable Bilateral Squats Resistance 100# Shuttle Recovery Platform Stable Therapeutic Exercises Standing Exercises Squats Standing Exercise Name Mini-squats Other Exercises Resisted Side-stepping Other Exercise Name Resisted Side-stepping Side bilateral Resistance Teal Equipment Used T-band Neuro Re-Education Treatment Balance Activities Tandem Ambulation Details Heel-toe walking Equipment // bars Narrow BREEZY Details Narrow BREEZY Surface Johnson foam PT-OP-T Assessment and Plan Start: 01/12/19 09:39 Freq: Status: Active Protocol: Document 02/03/19 13:55 DCW (Rec: 02/03/19 14:27 DCW [id number]) Physical Therapy Assessment Impairments Impairments Activity Tolerance Balance Functional Activities Functional Mobility Gait Pain Strength Other Concerns Fall Risk Increased falls risk per Matos (37/56), High falls risk per DGI (08/31) Goals Four Impairment Pt at a high falls risk Short Term Goal (STG) Pt to score at least 45 on the Matos Balance Scale STG Duration 02/11/19 [facility] Goal (LTG) Pt to score at least 18 on DGI LTG Duration 03/13/19 Three Impairment Pt ambulates with SPC 100% of the time [facility] Goal (LTG) Pt to feel comfortable ambulating with her cane less than 50% of the time LTG Duration 03/13/19 Two Impairment Falls [facility] Goal (LTG) Pt to report no falls over a two months period LTG Duration 03/13/19 One Impairment Pt does not have an appropriate Home Exercise Program Short Term Goal (STG) Pt to be independent and complaint with an appropriate HEP STG Duration 02/11/19 Assessment Summary Assessment Pt required increased rest breaks today due to complaints of knee pain. Physical Therapy Plan Frequency and Duration Frequency of Treatment 2x/Week Duration of Treatment 12 weeks Plan of Care Start Date 01/11/19 Plan of Care End Date 04/05/19 Therapeutic Interventions Therapeutic Interventions Aquatic Therapy Balance Training Gait Training Home Exercise Program Joint Mobilizations Manual Therapy Neuromuscular Re-education Patient/Caregiver Education Soft Tissue Mobilization Therapeutic Activities Therapeutic Exercises Modalities Cold Pack/Ice Massage Electric Stimulation Hot Packs Ultrasound Next Visit Focus/Plan Next Note Type Treatment Note Next Visit Plan LE strengthening, balance training
--- NOTE | 2019-02-06 14:32 | PT.OTN ---
Current Diagnoses Pain in unspecified knee (02/06/19) Other abnormalities of gait and mobility (02/06/19) Physical Therapy Treatment Note PT-OP-A Visit Information Start: 01/12/19 09:39 Freq: Status: Active Protocol: Document 02/06/19 13:45 DCW (Rec: 02/06/19 14:31 DCW [id number]) Out-Patient Physical Therapy Visit Information Visit Information Visit Type Treatment Note Visit Start Time 13:45 Visit Stop Time 14:30 Total Visit Minutes 45 Visit Number 8 Number of MEDIA ASSISTANT Visits 0 Evaluation Information Evaluation Date 01/11/19 PT-OP-B Current Condition Start: 01/12/19 09:39 Freq: Status: Active Protocol: Document 01/11/19 16:00 DCW (Rec: 01/12/19 10:16 DCW [id number]) Current Condition History of Current Condition Onset Date Long-standing history Current Complaints Left knee pain and weakness, gait difficulty, imbalance History of Current Condition Pt is a 73 year old female well known to this clinic presenting with complaints of knee pain and worsening balance. Pt had previously been seen at this clinic for, among other things, vestibular rehabilitation, but she reports her imbalance now is entirely different, and she does not experience any vertigo, just feels very unstable. Notes that she now walks with a cane constantly, and I'm not happy about it. Pt reports she is taking a class at the [facility] about living with chronic conditions, and reports that it has really helped her organize her goals and expectations, but she still wants to walk normally. Pt admits to two fairly recent falls, one occurred when tripping over a low curb in a parking lot, and the most recent one occurred when she tripped over the completely flat floor at the [facility], fell into a table, and then landed on her knees. Pt also notes that over the last few years, she feels like there has been an increase in the numbness in her feet. Prior Functional Status Baseline Function- ADL's Modified Independent Baseline Function- Mobility Modified Independent Current Functional Impairments (Reported) Functional Limitations- Mobility/Gait Pt ambulates with a trendelenburg gait pattern and ambulates everywhere with her SPC Personal Factors Other Personal Factors That May Effect DM II, HTN, Arthritis, Therapy/Recovery Neuropathy, R TKA (2004), Hx Polio PT-OP-C Subjective Start: 01/12/19 09:39 Freq: Status: Active Protocol: Document 02/06/19 13:45 DCW (Rec: 02/06/19 14:31 DCW [id number]) OP-PT Subjective Patient Comments Patient Comments Pt notes she is feeling pretty good today. PT-OP-D Balance Start: 01/12/19 09:39 Freq: Status: Active Protocol: Document 01/11/19 16:00 DCW (Rec: 01/12/19 10:16 DCW [id number]) Balance Tests Matos Balance Test Matos Balance Test Score 37/56 Matos Impairment Rating 20 to 39% Impaired (Score 34- 44) Matos Balance Assessment Evaluation Sitting to Standing Ability Independent w/Hands Unsupported Stance Safely- 2 minutes Sitting Unsupported, Feet on Floor Safely- 2 minutes Standing to Sitting Ability Safely, Minimal Hand Use Transfer Ability Safely, Minimal Hand Use Unsupported Stance- Eyes Closed Safely, 10 seconds Unsupported Stance- Eyes Open Assist to attain, 15 secs Reaching Forward Standing Safely, 5 inches Pick- Up Object From Floor Supervision Look Behind Shoulder - Standing Turns Sideways Only Turning 360 Degrees Turns slowly, but safely Unsupported Stance, Alternating Feet on Assist to Prevent Fall Stair Unsupported Tandem Stance Small Step- 30 seconds Unilateral Leg Stance Lifts Leg/Unable to Hold Total Score Matos Total Score (out of 56 points) 37 Matos Impairment Rating 20 to 39% Impaired (Score 34- 44) PT-OP-E Functional Tests Start: 01/12/19 09:39 Freq: Status: Active Protocol: Document 01/11/19 16:00 DCW (Rec: 01/12/19 10:16 DCW [id number]) Functional Tests Dynamic Gait Index (DGI) Score 10/24 DGI Impairment Rating 40 to <60% Impaired (Score 10- 14) PT-OP-G Mobility & Gait Start: 01/12/19 09:39 Freq: Status: Active Protocol: Document 01/11/19 16:00 DCW (Rec: 01/12/19 10:16 DCW [id number]) OP Gait Assessment Gait Gait Assistance Required: Independent Able to Maintain Weight Bearing Status Yes During Gait Assistive Devices Assistive Device Straight Cane Orthotic/Prosthetic Devices or Brace: No Gait Deviations General Gait Pattern Antalgic Decreased Stride Length Lateral Trunk Lean Comments Gait Comments Trendelenburg gait pattern, lateral lean to compensate for Glute Med weakness Stair Climbing Evaluation Evaluation Level of Assist On Stairs Independent Devices Stair Climbing Assistive Devices Left Railing Right Railing Technique/Endurance Stair Climbing Direction Descend Stair Climbing Technique Step to Step Number of Steps Climbed 4 PT-OP-M Strength Start: 01/12/19 09:39 Freq: Status: Active Protocol: Document 01/11/19 16:00 DCW (Rec: 01/12/19 10:16 DCW [id number]) Hip Strength Hip Manual Muscle Testing Right Flexion (L2) 4- Good- Abduction 4- Good- Adduction 4 Good External Rotation 5 Normal Internal Rotation 5 Normal Left Flexion (L2) 4- Good- Abduction 4- Good- Adduction 4 Good External Rotation 4- Good- Internal Rotation 5 Normal Comments Pain in L knee with ER testing Knee Strength Knee Manual Muscle Testing Right Flexion (S2) 4+ Good+ Extension (L3) 4+ Good+ Left Flexion (S2) 4+ Good+ Extension (L3) 4- Good- Comments Resisted extension caused pain in left knee PT-OP-Q Treatments Start: 01/12/19 09:39 Freq: Status: Active Protocol: Document 02/06/19 13:45 DCW (Rec: 02/06/19 14:31 DCW [id number]) Cardio Equipment Recumbent Elliptical (Biodex) Duration (Minutes) 5 Resistance 3 Seat Position 9 Gym Equipment Shuttle Recovery Unilateral Squats Resistance 50# Shuttle Recovery Platform Stable Reps/Time 2x25 Bilateral Squats Resistance 100# Shuttle Recovery Platform Stable Reps/Time 2x25 Shuttle Balance Red Details Wide BREEZY (EO/EC), Staggered Stance Therapeutic Exercises Standing Exercises Heel/Toe Raises Standing Exercise Name Heel raises Side bilateral Hamstring Curls Standing Exercise Name Standing HS curls Side bilateral Equipment Used // bars Other Exercises Hurdles Other Exercise Name Hurdles Resisted Side-stepping Other Exercise Name Resisted Side-stepping Side bilateral Resistance Teal Equipment Used T-band PT-OP-T Assessment and Plan Start: 01/12/19 09:39 Freq: Status: Active Protocol: Document 02/06/19 13:45 DCW (Rec: 02/06/19 14:31 DCW [id number]) Physical Therapy Assessment Impairments Impairments Activity Tolerance Balance Functional Activities Functional Mobility Gait Pain Strength Other Concerns Fall Risk Increased falls risk per Matos (37/56), High falls risk per DGI (08/31) Goals Four Impairment Pt at a high falls risk Short Term Goal (STG) Pt to score at least 45 on the Matos Balance Scale STG Duration 02/11/19 Group Home Goal (LTG) Pt to score at least 18 on DGI LTG Duration 03/13/19 Three Impairment Pt ambulates with SPC 100% of the time Group Home Goal (LTG) Pt to feel comfortable ambulating with her cane less than 50% of the time LTG Duration 03/13/19 Two Impairment Falls Group Home Goal (LTG) Pt to report no falls over a two months period LTG Duration 03/13/19 One Impairment Pt does not have an appropriate Home Exercise Program Short Term Goal (STG) Pt to be independent and complaint with an appropriate HEP STG Duration 02/11/19 Assessment Summary Assessment Pt tolerated full session of treatment without any rest breaks. Pt had fewer complaints or instances of difficulty. Physical Therapy Plan Frequency and Duration Frequency of Treatment 2x/Week Duration of Treatment 12 weeks Plan of Care Start Date 01/11/19 Plan of Care End Date 04/05/19 Therapeutic Interventions Therapeutic Interventions Aquatic Therapy Balance Training Gait Training Home Exercise Program Joint Mobilizations Manual Therapy Neuromuscular Re-education Patient/Caregiver Education Soft Tissue Mobilization Therapeutic Activities Therapeutic Exercises Modalities Cold Pack/Ice Massage Electric Stimulation Hot Packs Ultrasound Next Visit Focus/Plan Next Note Type Treatment Note Next Visit Plan LE strengthening, balance training
--- NOTE | 2019-02-10 14:37 | PT.OTN ---
Current Diagnoses Pain in unspecified knee (02/10/19) Other abnormalities of gait and mobility (02/10/19) Physical Therapy Treatment Note PT-OP-A Visit Information Start: 01/12/19 09:39 Freq: Status: Active Protocol: Document 02/10/19 14:02 DCW (Rec: 02/10/19 14:08 DCW [id number]) Out-Patient Physical Therapy Visit Information Visit Information Visit Type Treatment Note Visit Start Time 14:02 Visit Stop Time 14:30 Total Visit Minutes 28 Visit Number 9 Number of SURVEILLANCE OFFICER Visits 0 Evaluation Information Evaluation Date 01/11/19 PT-OP-B Current Condition Start: 01/12/19 09:39 Freq: Status: Active Protocol: Document 01/11/19 16:00 DCW (Rec: 01/12/19 10:16 DCW [id number]) Current Condition History of Current Condition Onset Date Long-standing history Current Complaints Left knee pain and weakness, gait difficulty, imbalance History of Current Condition Pt is a 73 year old female well known to this clinic presenting with complaints of knee pain and worsening balance. Pt had previously been seen at this clinic for, among other things, vestibular rehabilitation, but she reports her imbalance now is entirely different, and she does not experience any vertigo, just feels very unstable. Notes that she now walks with a cane constantly, and I'm not happy about it. Pt reports she is taking a class at the [facility] about living with chronic conditions, and reports that it has really helped her organize her goals and expectations, but she still wants to walk normally. Pt admits to two fairly recent falls, one occurred when tripping over a low curb in a parking lot, and the most recent one occurred when she tripped over the completely flat floor at the [facility], fell into a table, and then landed on her knees. Pt also notes that over the last few years, she feels like there has been an increase in the numbness in her feet. Prior Functional Status Baseline Function- ADL's Modified Independent Baseline Function- Mobility Modified Independent Current Functional Impairments (Reported) Functional Limitations- Mobility/Gait Pt ambulates with a trendelenburg gait pattern and ambulates everywhere with her SPC Personal Factors Other Personal Factors That May Effect DM II, HTN, Arthritis, Therapy/Recovery Neuropathy, R TKA (2004), Hx Polio PT-OP-C Subjective Start: 01/12/19 09:39 Freq: Status: Active Protocol: Document 02/10/19 14:02 DCW (Rec: 02/10/19 14:08 DCW [id number]) OP-PT Subjective Patient Comments Patient Comments Pt reports she is doing well enough with her HEP, she feels she can discharge after today . PT-OP-D Balance Start: 01/12/19 09:39 Freq: Status: Active Protocol: Document 02/10/19 14:02 DCW (Rec: 02/10/19 14:33 DCW [id number]) Balance Tests Matos Balance Test Matos Balance Test Score 43/56 Matos Impairment Rating 20 to 39% Impaired (Score 34- 44) PT-OP-E Functional Tests Start: 01/12/19 09:39 Freq: Status: Active Protocol: Document 02/10/19 14:02 DCW (Rec: 02/10/19 14:33 DCW [id number]) Functional Tests Dynamic Gait Index (DGI) Score 16/24 DGI Impairment Rating 20 to <40% Impaired (Score 15- 19) PT-OP-G Mobility & Gait Start: 01/12/19 09:39 Freq: Status: Active Protocol: Document 01/11/19 16:00 DCW (Rec: 01/12/19 10:16 DCW [id number]) OP Gait Assessment Gait Gait Assistance Required: Independent Able to Maintain Weight Bearing Status Yes During Gait Assistive Devices Assistive Device Straight Cane Orthotic/Prosthetic Devices or Brace: No Gait Deviations General Gait Pattern Antalgic Decreased Stride Length Lateral Trunk Lean Comments Gait Comments Trendelenburg gait pattern, lateral lean to compensate for Glute Med weakness Stair Climbing Evaluation Evaluation Level of Assist On Stairs Independent Devices Stair Climbing Assistive Devices Left Railing Right Railing Technique/Endurance Stair Climbing Direction Descend Stair Climbing Technique Step to Step Number of Steps Climbed 4 PT-OP-M Strength Start: 01/12/19 09:39 Freq: Status: Active Protocol: Document 01/11/19 16:00 DCW (Rec: 01/12/19 10:16 DCW [id number]) Hip Strength Hip Manual Muscle Testing Right Flexion (L2) 4- Good- Abduction 4- Good- Adduction 4 Good External Rotation 5 Normal Internal Rotation 5 Normal Left Flexion (L2) 4- Good- Abduction 4- Good- Adduction 4 Good External Rotation 4- Good- Internal Rotation 5 Normal Comments Pain in L knee with ER testing Knee Strength Knee Manual Muscle Testing Right Flexion (S2) 4+ Good+ Extension (L3) 4+ Good+ Left Flexion (S2) 4+ Good+ Extension (L3) 4- Good- Comments Resisted extension caused pain in left knee PT-OP-Q Treatments Start: 01/12/19 09:39 Freq: Status: Active Protocol: Document 02/10/19 14:02 DCW (Rec: 02/10/19 14:08 DCW [id number]) Cardio Equipment Recumbent Elliptical (BiodTransBiodiesel) Duration (Minutes) 8 Resistance 3 Seat Position 9 Neuro Re-Education Treatment Balance Activities Balance Testing Details DGI, Matos PT-OP-T Assessment and Plan Start: 01/12/19 09:39 Freq: Status: Active Protocol: Document 02/10/19 14:02 DCW (Rec: 02/10/19 14:37 DCW [id number]) Physical Therapy Assessment Impairments Impairments Activity Tolerance Balance Functional Activities Functional Mobility Gait Pain Strength Goals Four Impairment Pt at a high falls risk Short Term Goal (STG) Pt to score at least 45 on the Matos Balance Scale - Improvin/56 STG Duration 02/11/19 Senior Care Goal (LTG) Pt to score at least 18 on DGI - Improvin LTG Duration 03/13/19 Three Impairment Pt ambulates with SPC 100% of the time Senior Care Goal (LTG) Pt to feel comfortable ambulating with her cane less than 50% of the time - Improving: Ambulates around her house without cane LTG Duration 03/13/19 Two Impairment Falls Building Construction Inspector Goal (LTG) Pt to report no falls over a two months period LTG Duration Met One Impairment Pt does not have an appropriate Home Exercise Program Short Term Goal (STG) Pt to be independent and complaint with an appropriate HEP STG Duration Met Assessment Summary Assessment Pt arrived today 17 minutes late, and reported she feels like she is improved, and she should be fine with discharge and working independently with her HEP. Pt will be discharged from skilled PT at this time. Physical Therapy Plan Frequency and Duration Frequency of Treatment 2x/Week Duration of Treatment 12 weeks Plan of Care Start Date 01/11/19 Plan of Care End Date 04/05/19 Therapeutic Interventions Therapeutic Interventions Aquatic Therapy Balance Training Gait Training Home Exercise Program Joint Mobilizations Manual Therapy Neuromuscular Re-education Patient/Caregiver Education Soft Tissue Mobilization Therapeutic Activities Therapeutic Exercises Modalities Cold Pack/Ice Massage Electric Stimulation Hot Packs Ultrasound Discharge Physical Therapy Discharge Reasons Patient Request Next Visit Focus/Plan Next Note Type Discharge Summary
== END 2019-02-10 16:41 ==
LOC: PHYS 13:45
PROVIDERS: PCP Family Medicine; Visit Provider Family Medicine
DX: M25.569 Pain in unspecified knee (principal); R26.89 Other abnormalities of gait and mobility
CPT/HCPCS: 97110; 97112; 97162

== ENCOUNTER → 2019-05-01 11:04 | Outpatient (CLI) | payer MEDICARE, SELFPAY ==
[2019-05-01 11:45] LABS: Hemoglobin A1C% w Est Avg Glu 7.9 % (4.0-6.0)
[2019-05-01 11:58] LABS: Alanine Aminotransferase 40 IU/L (9-52); Albumin Globulin Ratio 1.3 (1.0-2.8); Alkaline Phosphatase 83 U/L (38-126); Aspartate Aminotransferase 27 IU/L (14-36); BUN Creatinine Ratio 32.2 (6-22); Bilirubin Total 0.6 mg/dL (0.2-1.3); Blood Urea Nitrogen 29 mg/dL (7-17); Calcium 9.9 mg/dL (8.4-10.2); Carbon Dioxide 31 mmol/L (22-32); Chloride 102 mmol/L (98-107); Cholesterol 150 mg/dL (140-199); Estimated Glomerular Filt Rate > 60.0 mL/min (>60); Globulin 3.1 g/dL (1.7-4.1); Glucose 197 mg/dL (80-110); HDL Cholesterol 57 mg/dL (40-60); HEMOLYSIS < 15 (0-50); LDL Cholesterol Calculated 61 mg/dL (<100); Potassium 3.7 mmol/L (3.4-5.1); Sodium 140 mmol/L (137-145); Total Protein 7.1 g/dL (6.3-8.2); Triglycerides 159 mg/dL (35-150)
== END ==
PROVIDERS: PCP Family Medicine; Visit Provider Family Medicine
DX: E11.69 Type 2 diabetes mellitus with other specified complication (principal); E11.9 Type 2 diabetes mellitus without complications; E78.5 Hyperlipidemia, unspecified; I10 Essential (primary) hypertension
CPT/HCPCS: 36415; 80053; 80061; 83036

== ENCOUNTER 2019-09-19 14:17 | Emergency (ER) | payer MEDICARE, SELFPAY ==
[2019-09-19 14:27] VITALS: BP 223/113; PULSE 112; RESP 18; TEMP 37.7; O2SAT 94
--- NOTE | 2019-09-19 14:47 | ED_ITS ---
HPI - Extremity Problem <Zoë Christensen PA-C - Last Filed: 09/19/19 20:54> General Chief complaint: Extremity Problem,Nontraumatic Stated complaint: L Knee Pain Time Seen by Provider: 09/19/19 14:39 Source: patient Mode of arrival: EMS Limitations: no limitations History of Present Illness HPI Narrative: This 74-year-old female comes to ED via EMS secondary to worsening left knee pain. she states this has been gradually worsening due to her arthritis and she is awaiting left TKA, however for last 3 days she has had increasing pain and noticing more swelling. she denies any falls, twisting, any new trauma whatsoever. She states that she typically has soreness in other joints as well but no new joint pains or swelling aside from this. She states that steroid shot had been discussed previously but she does not want to have to delay her upcoming surgery. She wonders whether oral steroids might help. She occasionally takes a tramadol at home, avoids stronger pain medicines due to side effects. She states that the last few days she has had to use a walker to help ambulate around the house, whereas before she was able to use canes. She denies any new fever, rash, other illness at home. Of note she did not take her blood pressure medicines earlier today, stating they make her urinate frequently and did not want to take before coming here MD Complaint: extremity pain and extremity swelling Pain Consistency: constant ( ) Related Data Home Medications Medication Instructions Recorded Confirmed albuterol sulfate [Proventil HFA] 0.09 mg IH PRN #0 04/11/11 05/09/19 budesonide [Pulmicort Flexhaler] 180 mcg INH BIDRT #0 04/11/11 05/09/19 desloratadine 5 mg PO QDAY PRN #0 09/16/11 05/09/19 Multivitamin, Minerals, and 1 tab PO Q DAY #0 08/29/12 05/09/19 (#MAAME YI) VITAMIN D (Vitamin D3) 1,000 unit PO QDAY #0 08/29/12 05/09/19 montelukast [Singulair] 10 mg PO QDAY #0 08/29/12 12/06/18 [tumeric] 1,000 mg PO QDAY #0 11/22/17 05/09/19 cyanocobalamin (vitamin B-12) 1,000 mcg PO DAILY 12/06/18 05/09/19 1,000 mcg capsule Previous Rx's Medication Instructions Recorded amoxicillin 500 mg PO ONCE #4 cap 11/05/17 Glucose: Home Monitor ea SEE INSTRUCTIONS #1 01/03/18 Lancets ea #100 01/03/18 nystatin-triamcinolone 100,000 1 applictn TOPICAL 3 PER WEEK #15 12/06/18 unit/gram-0.1 % topical ointment gram tramadol 50 mg tablet 50 mg PO Q6HP PRN #30 tab 12/15/18 estradiol 0.5 mg PO QDAY #90 tab 01/25/19 tolterodine 2 mg tablet 2 mg PO QR SLEEP #90 tab 05/09/19 lisinopril 10 mg tablet 10 mg PO BID #180 tab 06/01/19 diclofenac 75 mg-misoprostol 200 See Rx Instructions .ROUTE 07/03/19 mcg tablet,immediate,delayed .COMPLEX #90 tab release atorvastatin 20 mg tablet 20 mg PO DAILY #90 tab 09/15/19 glipizide 2.5 mg tablet, extended 2.5 mg PO BID #180 tab 09/15/19 release 24 hr metformin 1,000 mg tablet 1,000 mg PO BIDCC #180 tab 09/15/19 tramadol 50 mg PO Q6H #8 tab 09/19/19 Allergies Allergy/AdvReac Type Severity Reaction Status Date / Time erythromycin base Allergy Unknown Verified 09/19/19 14:32 [ERYTHROMYCIN BASE] Sulfa (Sulfonamide Allergy Unknown Verified 09/19/19 14:32 Antibiotics) [SULFA (SULFONAMIDE ANTIBIOTICS)] sulfamethoxazole Allergy Unknown Verified 09/19/19 14:32 [From SEPTRA] trimethoprim [From SEPTRA] Allergy Unknown Verified 09/19/19 14:32 hydrocodone [HYDROCODONE] AdvReac Mild N/V Verified 09/19/19 14:32 oxycodone [From PERCOCET] AdvReac Unknown Verified 09/19/19 14:32 Review of Systems <Zoë Christensen PA-C - Last Filed: 09/19/19 20:54> Review of Systems ROS Unobtainable: All systems reviewed & are unremarkable except as noted in HPI and below Patient History <Zoë Christensen PA-C - Last Filed: 09/19/19 20:54> Medical History Asthma (Chronic Unknown) Carpal tunnel syndrome (Resolved ~2005) Colon polyps (Resolved 02/2007) Diabetes (Chronic Unknown) Hyperlipemia (Chronic Unknown) Hypertension (Chronic Unknown) Low back pain (Chronic ~2015) Osteoarthritis (Chronic Unknown) Surgical History History of knee replacement S/P total abdominal hysterectomy and bilateral salpingo-oophorectomy Status post delivery Family History Mother Diabetes mellitus Hypertension Degenerative joint disease Obesity Father Aortic aneurysm Grandfather Heart disease Grandmother Diabetes mellitus Obesity Grandfather No problems noted. Grandmother Pneumonia Social History household members: spouse Smoking Status: Never smoker Substance Use Type: does not use Exam <Zoë Christensen PA-C - Last Filed: 09/19/19 20:54> Narrative Exam Narrative: GENERAL APPEARANCE: Patient sitting comfortably, in no distress. NECK/THYROID: Neck supple, no JVD. LUNGS: Clear to auscultation bilaterally. HEART: Regular rate and rhythm without murmur, normal S1, S2, no S3 or S4. EXTREMITIES: No cyanosis bilateral lower extremities mild brawny edema with venous stasis skin changes, varicosities noted. no calf tenderness NEUROLOGIC: Alert and oriented, normal speech, and coordination. MUSCULOSKELETAL: Exquisite tenderness across the entirety of the left knee joint. Will not attempt active range of motion secondary to tenderness. moderate tenderness over the ankles bilaterally, no tenderness over the soft tissues. DERMATOLOGIC: No wounds noted, skin cool to touch Initial Vital Signs Initial Vital Signs: Vital Signs Temperature 99.9 F H 09/19/19 14:27 Pulse Rate 112 H 09/19/19 14:27 Respiratory Rate 18 09/19/19 14:27 Blood Pressure 223/113 H 09/19/19 14:27 Pulse Oximetry 94 09/19/19 14:27 <Refugio Ayala DO - Last Filed: 09/20/19 07:59> Initial Vital Signs Initial Vital Signs: Vital Signs Temperature 99.9 F H 09/19/19 14:27 Pulse Rate 112 H 09/19/19 14:27 Respiratory Rate 18 09/19/19 14:27 Blood Pressure 223/113 H 09/19/19 14:27 Pulse Oximetry 94 09/19/19 14:27 Course <Zoë Christensen PA-C - Last Filed: 09/19/19 20:54> Course Additional Information: Patient had improvement in her pain with tramadol and Tylenol. She was able to ambulate a little bit with walker and assessed by PT. PT advised that they could not fully assess her safety as she does have a few stairs to go up at home to get into the house, however earlier today she was unable to even bear weight due to the pain. We discussed her knee effusion, likely arthritis exacerbation. She has done well with tramadol in the past so will take that every 6 hours with a Tylenol over the next couple of days. She agrees to use her walker. We spoke with her orthopedist office and Dr. Bronson will be able to see her on . She agrees to return if any acutely worsening symptoms in the interim. Of note her BP was significantly elevated today on arrival however she had not taken her blood pressure medication and had considerable pain. this began to improve during her stay in the ED Orders Ordered: Discontinued Medications Acetaminophen (Tylenol) 650 mg PO NOW ONE Stop: 09/19/19 15:00 Last Admin: 09/19/19 15:13 Dose: 650 mg Documented by: FAROOQ Tramadol HCl (Ultram) 50 mg PO NOW ONE Stop: 09/19/19 15:11 Last Admin: 09/19/19 15:13 Dose: 50 mg Documented by: FAROOQ Vital Signs Vital signs: Vital Signs - 8 hr 09/19/19 14:27 09/19/19 16:00 09/19/19 16:18 Temperature 99.9 F H Pulse Rate 112 H 99 H Respiratory Rate 18 18 Blood Pressure 223/113 H Blood Pressure [Left Arm] 176/100 H Blood Pressure [Left Wrist] 196/104 H Pulse Oximetry 94 94 09/19/19 16:40 Temperature 98.7 F Pulse Rate Respiratory Rate Blood Pressure Blood Pressure [Left Arm] Blood Pressure [Left Wrist] Pulse Oximetry <Refugio Ayala DO - Last Filed: 09/20/19 07:59> Orders Ordered: Discontinued Medications Acetaminophen (Tylenol) 650 mg PO NOW ONE Stop: 09/19/19 15:00 Last Admin: 09/19/19 15:13 Dose: 650 mg Documented by: FAROOQ Tramadol HCl (Ultram) 50 mg PO NOW ONE Stop: 09/19/19 15:11 Last Admin: 09/19/19 15:13 Dose: 50 mg Documented by: FAROOQ Vital Signs Vital signs: Vital Signs - 8 hr 09/19/19 14:27 09/19/19 16:00 09/19/19 16:18 Temperature 99.9 F H Pulse Rate 112 H 99 H Respiratory Rate 18 18 Blood Pressure 223/113 H Blood Pressure [Left Arm] 176/100 H Blood Pressure [Left Wrist] 196/104 H Pulse Oximetry 94 94 09/19/19 16:40 Temperature 98.7 F Pulse Rate Respiratory Rate Blood Pressure Blood Pressure [Left Arm] Blood Pressure [Left Wrist] Pulse Oximetry MDM - Extremity (Nontraumatic) <Zoë Christensen PA-C - Last Filed: 09/19/19 20:54> Imaging Data knee: Radiologist's impression: 44 Zoë Christensen PA-C Find Patient Imaging - Miracle Greco 74 F 1945 ACTIVITY DATE EXAM STATUS AUTHOR 09/19/19 14:[address] [address] XRay Report Signed Patient: Miracle Greco GMR#: [id number] : 4Acct:[id number] Age/Sex: 74 / FDate of Service: 09/19/19 Loc: ED Accession Number: [id number] Procedure: XR knee LT 3V Ordering Provider: Zoë Christensen P.A-C PROCEDURE: XR KNEE LT 3V INDICATIONS: known OA, acute increase in pain, swelling TECHNIQUE: 3 views of the knee were acquired. COMPARISON: [facility] [place], XR KNEE ARTHRITIC SERIES LT, 04/24/2019, 11:15. [facility], CR, KNEE 3V RIGHT, 08/18/2016, 19:43. FINDINGS: Bones: No fractures or dislocations. No suspicious bony lesions. There is moderate to severe lateral and medial femorotibial joint space narrowing seen, with associated remodeling changes including subchondral sclerosis and osteophyte formation along the jointline. On the sunrise view, there is mild lateral patellofemoral joint space narrowing seen. Osteophyte formation can be seen along the margins of the patella. Soft tissues: There is a moderate joint effusion. No suspicious soft tissue calcifications. IMPRESSION: Osteoarthritic degenerative changes are seen, which are most promin ent along the femorotibial compartments. Moderate joint effusion. Dictated by: Alli Lagos M.D. on 09/19/2019 at 14:46 Approved by: Alli Lagos M.D. on 09/19/2019 at 14:47 Discharge Plan Departure Patient Disposition: Home Clinical Impression: Osteoarthritis of left knee Qualifiers: Osteoarthritis type: primary Qualified Code(s): M17.12 - Unilateral primary osteoarthritis, left knee Discharge Date/Time: 09/19/19 17:10 Instructions: DI for Osteoarthritis, DI for Knee Pain Activity Restrictions/Additional Instructions: Since the tramadol has helped your pain somewhat today and you were able to walk a little bit, please continue taking 1 tramadol every 6 hours with a regular or extra-strength Tylenol (whichever you have at home). Do this regularly rather than skipping doses this (you do not need to wake up to take it, but make sure you take 4 times daily). Continue your other medicines as usual. Use your walker at all times when you are bearing weight. We have scheduled you for an appointment with Dr. Bronson at 2:00 p.m. on in the [place] office where he is seeing patients this week. As we talked about, please return or see him right away if you are having any acutely worsening symptoms in the interim. Prescriptions: New tramadol 50 mg tablet 50 mg PO Q6H Qty: 8 RF: 0 No Action cyanocobalamin (vitamin B-12) 1,000 mcg capsule 1,000 mcg PO DAILY RF: 0 nystatin-triamcinolone 100,000-0.1 unit/gram-% ointment 1 applictn Topical 3 PER WEEK Qty: 15 RF: 1 budesonide [Pulmicort Flexhaler] 180 MCG aerosol powdr breath activated 180 mcg INH BIDRT Qty: 0 RF: 0 albuterol sulfate [Proventil HFA] 90 MCG/PUFF HFA aerosol inhaler 0.09 mg IH PRN Qty: 0 RF: 0 desloratadine 5 MG tablet 5 mg PO QDAY PRNQty: 0 RF: 0 montelukast [Singulair] 10 MG tablet 10 mg PO QDAY Qty: 0 RF: 0 VITAMIN D (Vitamin D3) 1,000 unit PO QDAY Qty: 0 RF: 0 Multivitamin, Minerals, and (#CENTRUM SILVER) 1 tab PO Q DAY Qty: 0 RF: 0 amoxicillin 500 MG capsule 500 mg PO ONCE Qty: 4 RF: 3 [tumeric] 1,000 mg PO QDAY Qty: 0 RF: 0 Glucose: Home Monitor SEE INSTRUCTIONS Qty: 1 RF: 0 Lancets Qty: 100 RF: 0 tramadol 50 mg tablet 50 mg PO Q6HP PRN (Reason: pain) Qty: 30 RF: 0 estradiol 0.5 mg tablet 0.5 mg PO QDAY Qty: 90 RF: 3 lisinopril 10 mg tablet 10 mg PO BID Qty: 180 RF: 0 diclofenac-misoprostol 75-200 mg-mcg tablet,IR,delayed rel,biphasic See Rx Instructions .ROUTE .COMPLEX Qty: 90 RF: 0 glipizide [Glucotrol XL] 2.5 mg tablet extended release 24hr 2.5 mg PO BID Qty: 180 RF: 0 metformin [Glucophage] 1,000 mg tablet 1,000 mg PO BIDCC Qty: 180 RF: 0 atorvastatin 20 mg tablet 20 mg PO DAILY Qty: 90 RF: 0 tolterodine [Detrol] 2 mg tablet 2 mg PO QR SLEEP Qty: 90 RF: 3 Referrals: Kain Bronson MD [Physician] - Alyssa Bonner DO [Primary Care Provider] - <Refugio Ayala DO - Last Filed: 09/20/19 07:59> Sign Out Provider Sign Out Attestation: Dr Ayala Co-Sign Statement: I was available for consultation during this patient's emergency department visit. This chart is signed by myself for administrative purposes only. I did not have direct contact with this patient during this visit. They were seen independently by the APC.
--- NOTE | 2019-09-19 14:59 | DI.RAD.S_ITS ---
PROCEDURE: XR KNEE LT 3V INDICATIONS: known OA, acute increase in pain, swelling TECHNIQUE: 3 views of the knee were acquired. COMPARISON: [facility] [place], [place], XR KNEE ARTHRITIC SERIES LT, 04/24/2019, 11:15. [facility], CR, KNEE 3V RIGHT, 08/18/2016, 19:43. FINDINGS: Bones: No fractures or dislocations. No suspicious bony lesions. There is moderate to severe lateral and medial femorotibial joint space narrowing seen, with associated remodeling changes including subchondral sclerosis and osteophyte formation along the jointline. On the sunrise view, there is mild lateral patellofemoral joint space narrowing seen. Osteophyte formation can be seen along the margins of the patella. Soft tissues: There is a moderate joint effusion. No suspicious soft tissue calcifications. IMPRESSION: Osteoarthritic degenerative changes are seen, which are most prominent along the femorotibial compartments. Moderate joint effusion. Dictated by: Alli Lagos M.D. on 09/19/2019 at 14:46 Approved by: Alli Lagos M.D. on 09/19/2019 at 14:47
[2019-09-19] MEDS: TRAMADOL 50 MG TABLET PO (15:13)
[2019-09-19] MEDS: ACETAMINOPHEN 325 MG TABLET 650 MG PO (15:13)
--- NOTE | 2019-09-19 15:50 | PT.IIE ---
Surgical History (Last Reviewed 09/19/19 @ 14:48 by Zoë Christensen PA-C) History of knee replacement S/P total abdominal hysterectomy and bilateral salpingo-oophorectomy Status post delivery Medical History (Last Reviewed 09/19/19 @ 14:48 by Zoë Christensen PA-C) Asthma (Chronic Unknown) Carpal tunnel syndrome (Resolved ~2005) Colon polyps (Resolved 02/2007) Diabetes (Chronic Unknown) Hyperlipemia (Chronic Unknown) Hypertension (Chronic Unknown) Low back pain (Chronic ~2015) Osteoarthritis (Chronic Unknown) Physical Therapy Inpatient Evaluation/Re-Eval M1 PT/OT-IP Prior Functional Status Start: 09/19/19 16:43 Freq: Status: Active Protocol: Document 09/19/19 15:50 AB (Rec: 09/19/19 17:33 AB [id number]) Medical Review Prior Functional Status Medical History Reviewed Yes Communication able to make needs known Mobility and Gait pt stated that she is modified independent with all mobility and uses a FWW for ambulation Social History Household Members spouse Living Arrangements House Number of Floors (Floors) Two Floors Number of Stairs To Enter/Railing? pt stays on main level of the house has 4 steps with bilateral rails and R bar handle on side of door Home Environment High Toilet,Walk in Shower, Built-In Shower Seat Home Equipment Front Wheel Walker,Straight Cane,Raised Toilet Seat Without Armrests,Hand Held Shower,Grab Bars Near Toilet Additional Social History Comment pt stated that she sleeps on a recliner M2 PT-IP Current Condition Start: 09/19/19 16:43 Freq: Status: Active Protocol: Document 09/19/19 15:50 AB (Rec: 09/19/19 17:33 AB [id number]) Physical Therapy Current Condition Current Condition Evaluation Date 09/19/19 Treatment Diagnosis L knee pain; difficulty in walking Onset Date 09/19/19 M3 PT-IP Subjective Start: 09/19/19 16:43 Freq: Status: Active Protocol: Document 09/19/19 15:50 AB (Rec: 09/19/19 17:33 AB [id number]) Subjective Physical Therapy Visit Type Type Initial Evaluation Visit Start Time 15:50 Visit Stop Time 16:35 Total Visit Minutes 45 Number of TROLLEY [employer]LECTOR Visits 0 Physical Therapy Visit Comments Patient Comments checked on pt and pt initially stated that she wants to take her pain meds first before doing PT. checked on pt again after ~ 45 min and agreed to get up. Therapy Pain Assessment Pain When Pain Assessed At Rest Pain Present Pain Present Pain Reported Location Left Knee Intensity 1 Scale Used increases to 8/10 with mobility Pain Behaviors Guarding,Moaning,Wincing Pain Management Techniques Re-positioning,Timing of Activity with Medications M4 PT-IP Mobility and Gait Start: 09/19/19 16:43 Freq: Status: Active Protocol: Document 09/19/19 15:50 AB (Rec: 09/19/19 17:33 AB [id number]) PT-Bed Mobility Assessment Supine to Sit Supine to Sit Minimal Assistance PT-Transfer Assessment Sit to and From Stand Sit to and from Stand Minimal Assistance,Moderate Assistance,1 Person Assistance ,Use of Upper Extremities Equipment Transfer Assistive Device Gait Belt,Front Wheeled Walker Orthotic/Prosthetic Devices or Brace: No Comments Mobility Comments MORGAN Christensen informed PT that she ordered PT for pt and pt just came in and wants PT to assess ambulation. PA informed PT regarding pt's medical status. Asked PA if nurse was able to do a screen and stated that a screen was not done yet. checked on pt and pt refused to move until she get her pain meds. informed PA. checked on pt again after ~ 45 and pt willing to do PT. BP checked by NAC: 194/105. PT checked again after pt rested for a few minutes: 195/107. informed nurse regarding high BP and concerns to do PT due to high BP. Nurse Tompkins checked pt's BP manually: 175/ 100. informed nurse and doctor that PT usually cannot see pt if diastolic is more than 90. PA stated that it is not medically contraindicated to get pt up with that BP and that pt is cleared for PT to see. Checked on pt again and advised pt to let PT know what she feels and her symptoms for safety. Pt agreed. Pt stated that she is not dizzy/ lightheaded or nauseated. pt completed bed mobility supine to sit min A and cues. pt still havs no c/o and is asymptomatic with high BP. pt completed sit to stand from EOB min to mod A and cues. Pt requesting to use the toilet. pt was able to ambulate ~ 5 ft and has to sit on the w/c . informed NAC that pt needs assistance to use the toilet. NAC took over . Gait Assessment Gait Gait Assistance Required: Minimum Assistance,Moderate Assistance Distance (Feet) 5 Able to Maintain Weight Bearing Status Yes During Gait Assistive Devices Assistive Device Gait Belt,Front Wheeled Walker Orthotic/Prosthetic Devices or Brace: No Gait Deviations General Gait Pattern Antalgic,Decreased Stride Length,Decreased Feet Clearance,Step-to Gait Factors Limiting Gait Function Factors Limiting Gait Function Decreased Activity Tolerance, Decreased Strength,Limited Range of Motion,Pain,Poor Balance,Poor Safety Awareness Comments Gait Comments pt presents with antalgic gait and heavy UE use on FWW for support. required cues to activate L quad muscles during ambulation as pt presents with slight L knee buckling with initial ambulation. PT-Balance Assessment Sitting Balance and Reactions Static Sitting Balance Ability Good Dynamic Sitting Balance Ability Good Standing Balance and Reactions Static Standing Balance Ability Fair Dynamic Standing Balance Ability Poor Device Used FWW M5 PT-IP Objective Assessments Start: 09/19/19 16:43 Freq: Status: Active Protocol: Document 09/19/19 15:50 AB (Rec: 09/19/19 17:33 AB [id number]) Orientation Orientation/Cognition Level of Alertness Alert Orientation Name,Age,Place,Situation Language Function Ability No Deficits Noted Safety Awareness Understands Safety Issues Memory Description No Deficits Noted Gross Range of Motion Lower Extremity ROM Assessment Left Impaired Impairments L knee limited due to pain Strength Lower Extremity Strength Assessment Left Impaired Knee 3-/5 Coordination Assessment Gross Coordination Gross Coordination WNL Sensation Assessment Sensation Gross Sensation WNL Muscle Tone Muscle Tone WNL Yes M6 PT-IP Treatment Start: 09/19/19 16:43 Freq: Status: Active Protocol: Document 09/19/19 15:50 AB (Rec: 09/19/19 17:33 AB [id number]) Physical Therapy Treatment Education Education Provided Safety M7 PT-IP Assessment and Plan Start: 09/19/19 16:43 Freq: Status: Active Protocol: Document 09/19/19 15:50 AB (Rec: 09/19/19 17:33 AB [id number]) PT Summary Assessment and Plan Potential Rehabilitation Potential Fair Status of Condition at Evaluation Evolving Summary Impairments Pain,ROM,Strength,Balance, Coordination,Bed Mobility, Transfers,Gait,Activity Tolerance Assessment Summary pt with c/o significant L knee pain and unable to put too much weight on L knee affecting mobility. pt presents with severe antalgic gait with decrease LE elevation and heavy use of BUE on FWW for support. pt has 4 stteps to get into the house and is not appropriate to do stair climbing at this time due to pt unable to put too much weight on LLE. informed pt's mobility level and assessment to PA. Goals Bed Mobility Goal Standby Assistance Transfer Goal Standby Assistance,Front Wheeled Walker Gait Goal Standby Assistance,Front Wheel Walker Gait Distance 150 Other Goals up/down 4 steps using Bilateral rails SBA Days to Meet Goals 5 Frequency of Treatment Frequency Of Treatment Once a Day Treatment Plan Physical Therapy Treatment Plan Bed Mobility Training,Transfer Training,Gait Training, Therapeutic Exercise,Balance Retraining,Discharge Planning, Hot or Cold Pack,Neuromuscular Re-ed,Manual Therapy Other Recommendations and Next Treatment ambulation, stair climbing if Focus appropriate Recommendations To Nursing Amount of Assist Needed 1 Person Assist Discharge Recommendations PT Discharge Recommendations SNF Rehab
--- NOTE | 2019-09-19 15:50 | PT.IIE ---
Surgical History (Last Reviewed 09/19/19 @ 14:48 by Zoë Christensen PA-C) History of knee replacement S/P total abdominal hysterectomy and bilateral salpingo-oophorectomy Status post delivery Medical History (Last Reviewed 09/19/19 @ 14:48 by Zoë Christensen PA-C) Asthma (Chronic Unknown) Carpal tunnel syndrome (Resolved ~2005) Colon polyps (Resolved 02/2007) Diabetes (Chronic Unknown) Hyperlipemia (Chronic Unknown) Hypertension (Chronic Unknown) Low back pain (Chronic ~2015) Osteoarthritis (Chronic Unknown) Physical Therapy Inpatient Evaluation/Re-Eval M1 PT/OT-IP Prior Functional Status Start: 09/19/19 16:43 Freq: Status: Discharge Protocol: Document 09/19/19 15:50 AB (Rec: 09/19/19 17:33 AB [id number]) Medical Review Prior Functional Status Medical History Reviewed Yes Communication able to make needs known Mobility and Gait pt stated that she is modified independent with all mobility and uses a FWW for ambulation Social History Household Members spouse Living Arrangements House Number of Floors (Floors) Two Floors Number of Stairs To Enter/Railing? pt stays on main level of the house has 4 steps with bilateral rails and R bar handle on side of door Home Environment High Toilet,Walk in Shower, Built-In Shower Seat Home Equipment Front Wheel Walker,Straight Cane,Raised Toilet Seat Without Armrests,Hand Held Shower,Grab Bars Near Toilet Additional Social History Comment pt stated that she sleeps on a recliner M2 PT-IP Current Condition Start: 09/19/19 16:43 Freq: Status: Discharge Protocol: Document 09/19/19 15:50 AB (Rec: 09/19/19 17:33 AB [id number]) Physical Therapy Current Condition Current Condition Evaluation Date 09/19/19 Treatment Diagnosis L knee pain; difficulty in walking Onset Date 09/19/19 M3 PT-IP Subjective Start: 09/19/19 16:43 Freq: Status: Discharge Protocol: Document 09/19/19 15:50 AB (Rec: 09/19/19 17:33 AB [id number]) Subjective Physical Therapy Visit Type Type Initial Evaluation Visit Start Time 15:50 Visit Stop Time 16:35 Total Visit Minutes 45 Notes Pt seen with PT student Nghia Number of PERIODICALS CLERK Visits 0 Physical Therapy Visit Comments Patient Comments checked on pt and pt initially stated that she wants to take her pain meds first before doing PT. checked on pt again after ~ 45 min and agreed to get up. Therapy Pain Assessment Pain When Pain Assessed At Rest Pain Present Pain Present Pain Reported Location Left Knee Intensity 1 Scale Used increases to 8/10 with mobility Pain Behaviors Guarding,Moaning,Wincing Pain Management Techniques Re-positioning,Timing of Activity with Medications M4 PT-IP Mobility and Gait Start: 09/19/19 16:43 Freq: Status: Discharge Protocol: Document 09/19/19 15:50 AB (Rec: 09/19/19 17:33 AB [id number]) PT-Bed Mobility Assessment Supine to Sit Supine to Sit Minimal Assistance PT-Transfer Assessment Sit to and From Stand Sit to and from Stand Minimal Assistance,Moderate Assistance,1 Person Assistance ,Use of Upper Extremities Equipment Transfer Assistive Device Gait Belt,Front Wheeled Walker Orthotic/Prosthetic Devices or Brace: No Comments Mobility Comments MORGAN Christensen informed PT that she ordered PT for pt and pt just came in and wants PT to assess ambulation. PA informed PT regarding pt's medical status. Asked PA if nurse was able to do a screen and stated that a screen was not done yet. checked on pt and pt refused to move until she get her pain meds. informed PA. checked on pt again after ~ 45 and pt willing to do PT. BP checked by NAC: 194/105. PT checked again after pt rested for a few minutes: 195/107. informed nurse regarding high BP and concerns to do PT due to high BP. Nurse Tompkins checked pt's BP manually: 175/ 100. informed nurse and doctor that PT usually cannot see pt if diastolic is more than 90. PA stated that it is not medically contraindicated to get pt up with that BP and that pt is cleared for PT to see. requested nurse Tompkins to do positional BP readings on pt and refused. Checked on pt again and advised pt to let PT know what she feels and her symptoms for safety. Pt agreed. Pt stated that she is not dizzy/lightheaded or nauseated. pt completed bed mobility supine to sit min A and cues. pt still havs no c/o and is asymptomatic with high BP. pt completed sit to stand from EOB min to mod A and cues. Pt requesting to use the toilet. pt was able to ambulate ~ 5 ft and has to sit on the w/c . informed NAC that pt needs assistance to use the toilet. NAC took over . Gait Assessment Gait Gait Assistance Required: Minimum Assistance,Moderate Assistance Distance (Feet) 5 Able to Maintain Weight Bearing Status Yes During Gait Assistive Devices Assistive Device Gait Belt,Front Wheeled Walker Orthotic/Prosthetic Devices or Brace: No Gait Deviations General Gait Pattern Antalgic,Decreased Stride Length,Decreased Feet Clearance,Step-to Gait Factors Limiting Gait Function Factors Limiting Gait Function Decreased Activity Tolerance, Decreased Strength,Limited Range of Motion,Pain,Poor Balance,Poor Safety Awareness Comments Gait Comments pt presents with antalgic gait and heavy UE use on FWW for support. required cues to activate L quad muscles during ambulation as pt presents with slight L knee buckling with initial ambulation. PT-Balance Assessment Sitting Balance and Reactions Static Sitting Balance Ability Good Dynamic Sitting Balance Ability Good Standing Balance and Reactions Static Standing Balance Ability Fair Dynamic Standing Balance Ability Poor Device Used FWW M5 PT-IP Objective Assessments Start: 09/19/19 16:43 Freq: Status: Discharge Protocol: Document 09/19/19 15:50 AB (Rec: 09/19/19 17:33 AB [id number]) Orientation Orientation/Cognition Level of Alertness Alert Orientation Name,Age,Place,Situation Language Function Ability No Deficits Noted Safety Awareness Understands Safety Issues Memory Description No Deficits Noted Gross Range of Motion Lower Extremity ROM Assessment Left Impaired Impairments L knee limited due to pain Strength Lower Extremity Strength Assessment Left Impaired Knee 3-/5 Coordination Assessment Gross Coordination Gross Coordination WNL Sensation Assessment Sensation Gross Sensation WNL Muscle Tone Muscle Tone WNL Yes M6 PT-IP Treatment Start: 09/19/19 16:43 Freq: Status: Discharge Protocol: Document 09/19/19 15:50 AB (Rec: 09/19/19 17:33 AB [id number]) Physical Therapy Treatment Education Education Provided Safety M7 PT-IP Assessment and Plan Start: 09/19/19 16:43 Freq: Status: Discharge Protocol: Document 09/19/19 15:50 AB (Rec: 09/19/19 17:33 AB [id number]) PT Summary Assessment and Plan Potential Rehabilitation Potential Fair Status of Condition at Evaluation Evolving Summary Impairments Pain,ROM,Strength,Balance, Coordination,Bed Mobility, Transfers,Gait,Activity Tolerance Assessment Summary pt with c/o significant L knee pain and unable to put too much weight on L knee affecting mobility. pt presents with severe antalgic gait with decrease LE elevation and heavy use of BUE on FWW for support. pt has 4 stteps to get into the house and is not appropriate to do stair climbing at this time due to pt unable to put too much weight on LLE. informed pt's mobility level and assessment to PA. Goals Bed Mobility Goal Standby Assistance Transfer Goal Standby Assistance,Front Wheeled Walker Gait Goal Standby Assistance,Front Wheel Walker Gait Distance 150 Other Goals up/down 4 steps using Bilateral rails SBA Days to Meet Goals 5 Frequency of Treatment Frequency Of Treatment Once a Day Treatment Plan Physical Therapy Treatment Plan Bed Mobility Training,Transfer Training,Gait Training, Therapeutic Exercise,Balance Retraining,Discharge Planning, Hot or Cold Pack,Neuromuscular Re-ed,Manual Therapy Other Recommendations and Next Treatment ambulation, stair climbing if Focus appropriate Recommendations To Nursing Amount of Assist Needed 1 Person Assist Discharge Recommendations PT Discharge Recommendations SNF Rehab
[2019-09-19 16:00] VITALS: BP 196/104; PULSE 99; RESP 18; O2SAT 94
[2019-09-19 16:18] VITALS: BP 176/100
--- NOTE | 2019-09-19 16:33 | PC.NURSE ---
Patient states she takes her blood pressure meds twice daily and may have missed one dose.
[2019-09-19 16:40] VITALS: TEMP 37.1
== END 2019-09-19 17:10 | disposition home or self-care (01) ==
PROVIDERS: Emergency Provider Internal Medicine; PCP Family Medicine
DX: M17.12 Unilateral primary osteoarthritis, left knee (principal)
CPT/HCPCS: 73562; 97162; 97530; 99283

== ENCOUNTER → 2019-09-27 08:57 | Outpatient (CLI) | payer MEDICARE, SELFPAY ==
[2019-09-27 09:39] LABS: Hemoglobin A1C% w Est Avg Glu 6.6 % (4.0-6.0)
[2019-09-27 10:17] LABS: Alanine Aminotransferase 52 IU/L (<35); Albumin 3.7 g/dL (3.5-5.0); Albumin Globulin Ratio 1.4 (1.0-2.8); Alkaline Phosphatase 72 U/L (38-126); Aspartate Aminotransferase 30 IU/L (14-36); Bilirubin Total 0.6 mg/dL (0.2-1.3); Blood Urea Nitrogen 31 mg/dL (7-17); Calcium 9.8 mg/dL (8.4-10.2); Carbon Dioxide 30 mmol/L (22-32); Chloride 99 mmol/L (98-107); Cholesterol 133 mg/dL (140-199); Estimated Glomerular Filt Rate 54.1 mL/min (>60); Globulin 2.7 g/dL (1.7-4.1); Glucose 155 mg/dL (80-110); HDL Cholesterol 49 mg/dL (40-60); HEMOLYSIS < 15 (0-50); LDL Cholesterol Calculated 59 mg/dL (<100); Potassium 3.4 mmol/L (3.4-5.1); Sodium 137 mmol/L (137-145); Total Protein 6.4 g/dL (6.3-8.2); Triglycerides 127 mg/dL (35-150)
== END ==
PROVIDERS: PCP Family Medicine; Visit Provider Family Medicine
DX: E11.69 Type 2 diabetes mellitus with other specified complication (principal); E78.5 Hyperlipidemia, unspecified; I10 Essential (primary) hypertension; N28.9 Disorder of kidney and ureter, unspecified
CPT/HCPCS: 36415; 80053; 80061; 83036

== ENCOUNTER → 2019-10-12 13:44 | Outpatient (CLI) | payer MEDICARE, SELFPAY | PROVIDERS: PCP Family Medicine; Visit Provider Orthopaedic Surgery | DX: Z01.818 Encounter for other preprocedural examination (principal); M17.12 Unilateral primary osteoarthritis, left knee | CPT/HCPCS: 93005 ==

== ENCOUNTER → 2019-11-21 12:29 | Outpatient (CLI) | payer MEDICARE, SELFPAY ==
[2019-11-21 13:59] LABS: Add Manual Diff / Slide Review NO; Basophils Absolute Auto 100 /uL (0-100); Basophils Percent Auto 0.6 % (0-2); Eosinophils Absolute Auto 200 /uL (0-450); Eosinophils Percent Auto 1.8 % (2-4); Hematocrit 45.7 % (36-46); Hemoglobin 15.2 g/dL (12.0-16.0); Lymphocytes Absolute Auto 1000 /uL (1100-4500); Lymphocytes Percent Auto 12.1 % (25-40); Mean Corpuscular HGB Conc 33.2 % (30-36); Mean Corpuscular Volume 93.3 fL (80-100); Monocytes Absolute Auto 400 /uL (0-900); Monocytes Percent Auto 4.7 % (3-14); Neutrophils Absolute Auto 6800 /uL (1500-7000); Neutrophils Percent Auto 80.8 % (50-75); Platelet Count 213 X10^3/uL (150-400); Red Cell Distribution Width 14.6 % (11.6-14.8); White Blood Cell Count 8.4 X10^3/uL (4.5-11.0)
[2019-11-21 14:27] LABS: Carbon Dioxide 28 mmol/L (22-32); Chloride 101 mmol/L (98-107); HEMOLYSIS < 15 (0-50); Potassium 4.3 mmol/L (3.4-5.1); Sodium 139 mmol/L (137-145)
== END ==
PROVIDERS: Family Provider Family Medicine; PCP Family Medicine; Visit Provider Orthopaedic Surgery
DX: Z01.812 Encounter for preprocedural laboratory examination (principal); Z01.818 Encounter for other preprocedural examination
CPT/HCPCS: 36415; 80051; 85025

== ENCOUNTER 2019-11-24 07:33 | Outpatient (RCR) | payer MEDICARE, SELFPAY ==
--- NOTE | 2019-11-24 16:07 | PT.OIE ---
Current Diagnoses Unilateral primary osteoarthritis, unspecified knee (11/24/19) Past Medical History (Last Updated 11/24/19 @ 07:18 by Zoë Magana RN) Abnormal EKG (Acute) Asthma (Chronic Unknown) Carpal tunnel syndrome (Resolved ~2005) Colon polyps (Resolved 02/2007) Degenerative arthritis of left knee (Acute) Diabetes (Chronic Unknown) Fatigue (Acute) Hyperlipemia (Chronic Unknown) Hypertension (Chronic Unknown) Hypertension, uncontrolled (Acute) Leg swelling (Acute) Low back pain (Chronic ~2015) Osteoarthritis (Chronic Unknown) Unilateral primary osteoarthritis, left knee (Acute) Weakness (Acute) Past Surgical History (Last Reviewed 09/19/19 @ 14:48 by Zoë Christensen PA-C) History of knee replacement S/P total abdominal hysterectomy and bilateral salpingo-oophorectomy Status post delivery Visit Care Team Role Provider Type Alyssa Bonner DO Family Provider Physician Primary Care Provider Specialty: Family Practice Address: [address] [place] [address], [address], [address] Email: [email or web address] Kain Bronson MD Attending Provider Physician Specialty: Orthopedic Surgery Address: [address] [place] [address], [id number] Email: [email or web address] Physical Therapy Initial Evaluation PT-OP-A Visit Information Start: 11/24/19 07:33 Freq: Status: Active Protocol: Document 11/24/19 07:37 MB (Rec: 11/24/19 08:37 MB [id number]) Out-Patient Physical Therapy Visit Information Visit Information Visit Type Initial Evaluation Visit Note Unlimited, pre-op appointment for L TKA Visit Start Time 07:37 Visit Stop Time 08:35 Total Visit Minutes 57 Visit Number 1 Evaluation Information Evaluation Date 11/24/19 PT-OP-B Current Condition Start: 11/24/19 07:33 Freq: Status: Active Protocol: Document 11/24/19 07:37 MB (Rec: 11/24/19 08:37 MB [id number]) Current Condition History of Current Condition Onset Date 5 years History of Current Condition Pre-op appointment for L TKA scheduled 11/29/2019 Pt uses a straight cane and she has a SW. Pt has 4 steps to get into the house with two rails. PMH includes R TKA 15 years ago, high BP pre-op, diabetes, back and neck pain, bruise easily, arthritis Prior Treatments and Tests R TKA 15 years ago, PT post-op Treatment Goals Patient/Caregiver Goals : to not walk with walker PT-OP-C Subjective Start: 11/24/19 07:33 Freq: Status: Active Protocol: Document 11/24/19 07:37 MB (Rec: 11/24/19 16:07 MB [id number]) OP-PT Subjective Patient Comments Patient Comments See history of current condition and goals above. Patient Questionnaires Lower Extremity Functional Scale LEFS Impairment 80 to 99% Impaired (Score 1-16 ) OP-PT Pain Assessment Comments Pain Comments Pt has multiple complaints of pain throughout assessment but she is not clear about complaints and does not rate them. She states, I'm okay. She does reports back pain and self-limits MMT B LEs, greatest on the left. Per pain questionnaire, she reports 3/ 10 pain in her left knee. PT-OP-J Posture/Palpation/Skin Start: 11/24/19 07:33 Freq: Status: Active Protocol: Document 11/24/19 07:37 MB (Rec: 11/24/19 16:07 MB [id number]) Skin Assessment Other Assessments Skin Assessment Comments Pt presents with B ankle edema and redness, worse on the left. Her skin is scaly and has a yeast-like smell. PT-OP-K Range of Motion Start: 11/24/19 07:33 Freq: Status: Active Protocol: Document 11/24/19 07:37 MB (Rec: 11/24/19 16:07 MB [id number]) Knee Goniometric Range of Motion Knee Left Knee ROM WFL No Patient Position Supine Flexion Active (degrees) 84 Extension Active (degrees) 10 Right Knee ROM WFL No Patient Position Supine Flexion Active (degrees) 104 Extension Active (degrees) 3 Knee ROM Limitations Comments Left knee is much larger than the right. PT-OP-M Strength Start: 11/24/19 07:33 Freq: Status: Active Protocol: Document 11/24/19 07:37 MB (Rec: 11/24/19 16:07 MB [id number]) Hip Strength Hip Manual Muscle Testing Right Flexion (L2) 3- Fair- Abduction 2- Poor- Left Flexion (L2) 1 Trace Abduction 1 Trace Comments Pt self-limits d/t complaints of pain but does not clearly localize or rate pain Knee Strength Knee Manual Muscle Testing Right Flexion (S2) 3+ Fair+ Extension (L3) 4 Good Left Flexion (S2) 1 Trace Extension (L3) 1 Trace Comments Pt self-limits d/t complaints of pain but does not clearly localize or rate pain Ankle/Foot Strength Ankle and Foot Manual Muscle Testing Right Dorsiflexion (L4) 4 Good Comments Great toe extension 4/5 Left Dorsiflexion (L4) 4 Good Comments Great toe extension 4/5 PT-OP-Q Treatments Start: 11/24/19 07:33 Freq: Status: Active Protocol: Document 11/24/19 07:37 MB (Rec: 11/24/19 16:07 [id number]) Therapeutic Exercises Supine Exercises Post-op TKA exercises QS, AP, HS, SAQ, heel dangle Comments Performed today and provided pt green post-op handout Sitting Exercises Heel slide for knee flexion Comments Performed this date and provided green post-op handout Therapeutic Activity Therapeutic Activity 1 Comments Bed mobility assisting LLE, log roll, pt requires min A with UE support from PT to get to sitting today, safe sit to stand pushing up from bed and reaching back for it before sitting--and not walker Gait Training Gait Activity RW vs SW Device Used RW and SW Distance/Duration 75'x2 Comments Gait training with RW vs SW-- step-to gait pattern, benefits of RW over SW that pt has and she agrees and she and pt will look into getting one pre -op Self-Care/Home Management Treatment Education Patient Education Home Exercise Program,Pain Management Other Education Benefits of compression and provided Tubagrip, LLE elevation and icing, safety with transfers, gait, bed mobility and benefits of RW as opposed to SW PT-OP-T Assessment and Plan Start: 11/24/19 07:33 Freq: Status: Active Protocol: Document 11/24/19 07:37 MB (Rec: 11/24/19 16:07 [id number]) Physical Therapy Assessment Rehab Potential Rehabilitation Potential Fair Evaluation Complexity Number of Personal Factors/Comorbidities 1-2 Number of Body Systems Impaired 1-2 Clinical Presentation at Evaluation Evolving Impairments Impairments Activity Tolerance,Edema, Functional Activities, Functional Mobility,Gait, Integument,Pain,ROM,Strength, Transfers Other Impairments Personal factors include questionable participation and motivation and insight to therapy, difficulty following simple commands. Body systems affected include metabolic (DM ), increased BMI, multi-joint pain and arthritis, integumentary and awaiting surgery. Goals 5 Jail Goal (LTG) Pt will perform progressive HEP including postural, flexibility, strengtheing, gait and balance exercises with I to increase mobility and decrease fall risk by 02/04. 11/24/2019: Pt demonstrates post-op TKA exercises listed above this date LTG Duration 9 weeks Four Concrete Mixer Goal (LTG) Pt will present with an improved LEF score to reflect improved functional use of legs by 02/05/2020. LTG Duration 9 weeks Three Jail Goal (LTG) Pt will perform 5 reps sit to stand without UE support in less than 13 sec to demonstrate improved functional strength by 2019. LTG Duration 9 weeks Two Jail Goal (LTG) Pt will ascend and descend 4 steps with 2 rails and reciprocal gait pattern to allow safe entrance in and out of home by 02/05/2020. LTG Duration 9 weeks One Jail Goal (LTG) Pt will present with left knee AROM to at least 3-104 deg ( equal to the right) to improve knee flexion with transfers by 02/05/2020. LTG Duration 9 weeks Progress Towards Goals Progress Towards Goals Progressing Toward Goals Assessment Summary Assessment Pt is a 74 y/o female presenting for [facility] Path eval before left TKA on 11/29/2019. She presents with antalgic gait, poor transfers, decreased knee and hip range of motion and strength, back and knee pain with assessment and LE integumentary changes. She also presents with increased BMI. PT spends time educating pt and in therapeutic transfers, gait with RW, post-op exercises and self-care post-op. Pt will benefit from post-op PT to improve function, strength and range. Decreased tolerance to lying on mat d/t back pain, morbid obesity, trouble following commands and skin changes may be barriers to PT. Physical Therapy Plan Frequency and Duration Frequency of Treatment 2x/Week Duration of Treatment 9 weeks Plan of Care Start Date 11/24/19 Plan of Care End Date 02/05/20 Therapeutic Interventions Therapeutic Interventions Aquatic Therapy,Balance Training,Gait Training,Home Exercise Program,Manual Therapy,Neuromuscular Re- education,Patient/Caregiver Education,Self-Care/Home Management,Soft Tissue Mobilization,Taping, Therapeutic Activities, Therapeutic Exercises Modalities Cold Pack/Ice Massage,Electric Stimulation,Hot Packs, Ultrasound Other Therapeutic Interventions LLT Other Referrals/Consults Referrals/Consults Recommended Follow-up with doctor about skin changes Next Visit Focus/Plan Next Note Type Re-Evaluation Next Visit Plan Post-op re-eval
--- NOTE | 2019-11-24 16:07 | PT.OPPOC ---
Physical, Occupational & Speech Therapy At [facility] Current Diagnoses Unilateral primary osteoarthritis, unspecified knee (11/24/19) Visit Care Team Role Provider Type Alyssa Bonner DO Family Provider Physician Primary Care Provider Specialty: Family Practice Address: [address] [place] [address], [address], [place], [address] Email: [email or web address] Kain Bronson MD Attending Provider Physician Specialty: Orthopedic Surgery Address: [address] [place] [address], [id number] Email: [email or web address] Plan Of Care PT-OP-T Assessment and Plan Start: 11/24/19 07:33 Freq: Status: Active Protocol: Document 11/24/19 07:37 MB (Rec: 11/24/19 16:07 MB [id number]) Physical Therapy Assessment Rehab Potential Rehabilitation Potential Fair Evaluation Complexity Number of Personal Factors/Comorbidities 1-2 Number of Body Systems Impaired 1-2 Clinical Presentation at Evaluation Evolving Impairments Impairments Activity Tolerance,Edema, Functional Activities, Functional Mobility,Gait, Integument,Pain,ROM,Strength, Transfers Other Impairments Personal factors include questionable participation and motivation and insight to therapy, difficulty following simple commands. Body systems affected include metabolic (DM ), increased BMI, multi-joint pain and arthritis, integumentary and awaiting surgery. Goals 5 Residential Goal (LTG) Pt will perform progressive HEP including postural, flexibility, strengtheing, gait and balance exercises with I to increase mobility and decrease fall risk by 02/04. 11/24/2019: Pt demonstrates post-op TKA exercises listed above this date LTG Duration 9 weeks Four Residential Goal (LTG) Pt will present with an improved LEF score to reflect improved functional use of legs by 02/05/2020. LTG Duration 9 weeks Three [employer] Manager Goal (LTG) Pt will perform 5 reps sit to stand without UE support in less than 13 sec to demonstrate improved functional strength by 2019. LTG Duration 9 weeks Two Residential Goal (LTG) Pt will ascend and descend 4 steps with 2 rails and reciprocal gait pattern to allow safe entrance in and out of home by 02/05/2020. LTG Duration 9 weeks One [employer] Lecture [employer] Manager Goal (LTG) Pt will present with left knee AROM to at least 3-104 deg ( equal to the right) to improve knee flexion with transfers by 02/05/2020. LTG Duration 9 weeks Progress Towards Goals Progress Towards Goals Progressing Toward Goals Assessment Summary Assessment Pt is a 74 y/o female presenting for [facility] Path eval before left TKA on 11/29/2019. She presents with antalgic gait, poor transfers, decreased knee and hip range of motion and strength, back and knee pain with assessment and LE integumentary changes. She also presents with increased BMI. PT spends time educating pt and in therapeutic transfers, gait with RW, post-op exercises and self-care post-op. Pt will benefit from post-op PT to improve function, strength and range. Decreased tolerance to lying on mat d/t back pain, morbid obesity, trouble following commands and skin changes may be barriers to PT. Physical Therapy Plan Frequency and Duration Frequency of Treatment 2x/Week Duration of Treatment 9 weeks Plan of Care Start Date 11/24/19 Plan of Care End Date 02/05/20 Therapeutic Interventions Therapeutic Interventions Aquatic Therapy,Balance Training,Gait Training,Home Exercise Program,Manual Therapy,Neuromuscular Re- education,Patient/Caregiver Education,Self-Care/Home Management,Soft Tissue Mobilization,Taping, Therapeutic Activities, Therapeutic Exercises Modalities Cold Pack/Ice Massage,Electric Stimulation,Hot Packs, Ultrasound Other Therapeutic Interventions LLT Other Referrals/Consults Referrals/Consults Recommended Follow-up with doctor about skin changes Next Visit Focus/Plan Next Note Type Re-Evaluation Next Visit Plan Post-op re-eval Plan of Care Dates Plan of Care Start Date 11/24/19 Plan of Care End Date 02/05/20 Electronically Signed by: Olivia Foley, PT 11/24/19 [id number] Please Sign and Return: I have reviewed this Plan of Care and certify that the skilled therapy services above are required to meet the patient?s needs. Physician Signature Date Printed Name and Credentials Clinical Instructor Signature Printed Name and Credentials
--- NOTE | 2019-12-06 17:19 | PT-OP ANOTE ---
Pt adm to the hospital. PT speaks with pt who states that she did not have her L TKR last week d/t high BP. Pt states that she does believe that she will have her TKR surgery on 12/27/2019. Cancelled all pt's outpatient PT appointments until 01/02/2020. Anticipate that pt will follow-up with both her PCP and orthopedist before surgery and return to PT. Pt particularly asks to keep OP appointments in order to make sure she gets into therapy and has consistent therapy care.
--- NOTE | 2019-12-07 15:12 | PT.OPDS ---
Current Diagnoses Unilateral primary osteoarthritis, unspecified knee (11/24/19) Visit Care Team Role Provider Type Alyssa Bonner DO Family Provider Physician Primary Care Provider Specialty: Family Practice Address: [address] [place] [address], [address], [place], [address] Email: [email or web address] Kain Bronson MD Attending Provider Physician Specialty: Orthopedic Surgery Address: [address] [place] [address], [place], [address] Email: [email or web address] Visit Number Visit Number 1 Discharge Summary PT-OP-B Current Condition Start: 11/24/19 07:33 Freq: Status: Active Protocol: Document 11/24/19 07:37 MB (Rec: 11/24/19 08:37 MB [id number]) Current Condition History of Current Condition Onset Date 5 years History of Current Condition Pre-op appointment for L TKA scheduled 11/29/2019 Pt uses a straight cane and she has a SW. Pt has 4 steps to get into the house with two rails. PMH includes R TKA 15 years ago, high BP pre-op, diabetes, back and neck pain, bruise easily, arthritis Prior Treatments and Tests R TKA 15 years ago, PT post-op Treatment Goals Patient/Caregiver Goals : to not walk with walker PT-OP-C Subjective Start: 11/24/19 07:33 Freq: Status: Active Protocol: Document 11/24/19 07:37 MB (Rec: 11/24/19 16:07 MB [id number]) OP-PT Subjective Patient Comments Patient Comments See history of current condition and goals above. Patient Questionnaires Lower Extremity Functional Scale LEFS Impairment 80 to 99% Impaired (Score 1-16 ) OP-PT Pain Assessment Comments Pain Comments Pt has multiple complaints of pain throughout assessment but she is not clear about complaints and does not rate them. She states, I'm okay. She does reports back pain and self-limits MMT B LEs, greatest on the left. Per pain questionnaire, she reports 3/ 10 pain in her left knee. PT-OP-J Posture/Palpation/Skin Start: 11/24/19 07:33 Freq: Status: Active Protocol: Document 11/24/19 07:37 MB (Rec: 11/24/19 16:07 MB [id number]) Skin Assessment Other Assessments Skin Assessment Comments Pt presents with B ankle edema and redness, worse on the left. Her skin is scaly and has a yeast-like smell. PT-OP-K Range of Motion Start: 11/24/19 07:33 Freq: Status: Active Protocol: Document 11/24/19 07:37 MB (Rec: 11/24/19 16:07 MB [id number]) Knee Goniometric Range of Motion Knee Left Knee ROM WFL No Patient Position Supine Flexion Active (degrees) 84 Extension Active (degrees) 10 Right Knee ROM WFL No Patient Position Supine Flexion Active (degrees) 104 Extension Active (degrees) 3 Knee ROM Limitations Comments Left knee is much larger than the right. PT-OP-M Strength Start: 11/24/19 07:33 Freq: Status: Active Protocol: Document 11/24/19 07:37 MB (Rec: 11/24/19 16:07 MB [id number]) Hip Strength Hip Manual Muscle Testing Right Flexion (L2) 3- Fair- Abduction 2- Poor- Left Flexion (L2) 1 Trace Abduction 1 Trace Comments Pt self-limits d/t complaints of pain but does not clearly localize or rate pain Knee Strength Knee Manual Muscle Testing Right Flexion (S2) 3+ Fair+ Extension (L3) 4 Good Left Flexion (S2) 1 Trace Extension (L3) 1 Trace Comments Pt self-limits d/t complaints of pain but does not clearly localize or rate pain Ankle/Foot Strength Ankle and Foot Manual Muscle Testing Right Dorsiflexion (L4) 4 Good Comments Great toe extension 4/5 Left Dorsiflexion (L4) 4 Good Comments Great toe extension 4/5 PT-OP-T Assessment and Plan Start: 11/24/19 07:33 Freq: Status: Active Protocol: Document 12/07/19 15:10 MB (Rec: 12/07/19 15:11 MB [id number]) Physical Therapy Plan Discharge Physical Therapy Discharge Reasons Change in Medical Status Discharge Comments Pt admitted to hospital for stroke. Will d/c OPPT at this time and educated pt to return to orthopedist to receive new PT order. She will need to return to orthopedist anyhow since her TKR has been tentatively rescheduled in setting of high BP.
== END 2020-01-04 13:03 ==
LOC: PHYS 07:33
PROVIDERS: Family Provider Family Medicine; PCP Family Medicine; Visit Provider Orthopaedic Surgery
DX: M17.10 Unilateral primary osteoarthritis, unspecified knee (principal)
CPT/HCPCS: 97110; 97161; 97535

== ENCOUNTER 2019-11-29 06:25 | Day surgery (SDC) | payer MEDICARE, SELFPAY ==
[2019-11-29] MEDS: LACTATED RINGERS 1,000 ML 42 ML IV (07:00)
[2019-11-29 07:18] VITALS: BP 241/133; PULSE 103; RESP 20; TEMP 36.8; O2SAT 95; BMI 41.2
[2019-11-29] MEDS: MIDAZOLAM 2 MG/2 ML VIAL IV (07:44)
--- NOTE | 2019-11-29 08:31 | SUR.PREOP ---
Addendum entered by Harper Keyes R.N. 11/29/19 09:17: Pt OOB and escorted to [facility] with daughter as her assist to change for D/C. Original Note: Pt presented today for a LTKA. After getting her settled her BP was checked and found to quite elevated 241/133 HR 103 CBG 165. Pt has DX of diabetes controlled with oral meds and hypertension controlled with Lisinopril 20 mg. As per policy, lisinopril was held 24 hours prior to surgery contributing to her BP elevation. After talking to Dr Rao and presenting her VS, it was decided that pt would take 10mg of Lisinopril and receive 2mg of Versed and recheck her BP in approx 15min reporting results to him at that time. At the 15min recheck her pt was 218/100. It was then determined that since there was only a slight decrease in her BP that her case would need to be postponed until such time as she has seen her new PCP for further workup. Pt remains on bedside pulse oximeter and 2 liter of 02. HR is 75, sats 97.
--- NOTE | 2019-11-29 13:41 | SUR.PREOP ---
Late entry: 0940: pt dressed with assistance from her daughter. She was transported to ED entrance in [facility] by volunteer at approx 0940 in stable condition.
== END 2019-11-29 09:40 | disposition home or self-care (01) ==
PROVIDERS: PCP Internal Medicine; Visit Provider Orthopaedic Surgery
DX: M17.12 Unilateral primary osteoarthritis, left knee (principal); Z53.09 Procedure and treatment not carried out because of other contraindication; I10 Essential (primary) hypertension
CPT/HCPCS: 27447; J2250

== ENCOUNTER 2019-12-06 07:21 | Inpatient (IN) | payer MEDICARE, SELFPAY ==
[2019-12-06] VITALS (14 sets, daily range): BP systolic 139–191; BP diastolic 67–117; PULSE 86–109; RESP 15–22; TEMP 36.3–36.9; O2SAT 93–99; BMI 41.2
--- NOTE | 2019-12-06 | DI.MRI.S_ITS ---
PROCEDURE: MR ANGIO HEAD WO CON INDICATIONS: Right sided weakness TECHNIQUE: Noncontrast axial 3-D [id number] MR angiogram, with 3-dimensional maximum intensity projection (MIP) reformats of the internal carotid arteries and posterior circulation then performed. COMPARISON: [facility], CT, CT HEAD/BRAIN WO CON, 12/06/2019, 7:50. [facility], MR, MR HEAD/BRAIN WO CON, 12/06/2019, 15:26. FINDINGS: Image quality: Excellent. Anterior circulation: Intracranial internal carotid arteries demonstrate normal size and intraluminal flow signal. The flow within the paired anterior cerebral arteries is normal and symmetric. The flow within the middle cerebral arteries is normal and symmetric. The anterior communicating artery is seen. No stenoses, occlusions, or aneurysms. Posterior circulation: Visualized portions of the vertebral arteries demonstrate normal caliber, and join to form a normal appearing basilar artery. The flow within the posterior cerebral arteries is normal and symmetric. No stenoses, occlusions, or aneurysms. IMPRESSION: Normal intracranial MR angiogram. Dictated by: Baldev Randle M.D. on 12/06/2019 at 16:55 Approved by: Baldev Randle M.D. on 12/06/2019 at 16:55
--- NOTE | 2019-12-06 07:35 | PC.NURSE ---
lower leg with edema, blistering and discoloration, states, its chronic on arrival pt able to bend right knee, lift leg off the bed, push and pull. +distal cms. states, felt fine yesterday, ambulate with walker. denies injuries. [facility] has been working with her bp with dr wilson, lisinopril increase from 20mg to 40mg bid. and added norvasc.
--- NOTE | 2019-12-06 07:43 | ED.LOWEXIN ---
HPI - Extremity Injury (Lower) General Chief Complaint: Extremity Injury, Lower Stated Complaint: Right leg weakness Time Seen by Provider: 12/06/19 07:43 Source: EMS Mode of arrival: EMS History of Present Illness HPI Narrative: The patient is a 74-year-old female who is a vague historian. She primarily is complaining of right leg weakness. She states that the right leg just does not feel right and is not strong and will not do what she wanted to do. The patient states that she is waiting for left knee replacement. She was scheduled for surgery last week which was canceled because of her blood pressure being elevated. The patient states that she walks to the bathroom and around in the house with a walker. Most of the time she is sitting in a recliner in her house and in her bedroom. She is not very ambulatory at the present time. She had a right knee replaced 15 years ago and it has been functioning very well. Her right leg and been her normal leg. She denies any fall or injury. This morning she tried to get back in her recliner and did not sit back far enough slid out of the recliner and slid to the floor landing on her buttock. She does not complain of any significant pain in her pelvis or tailbone. The general repairer came to get her and she was standing with her walker but she was leaning arm towards the left. She denies any pain in her right leg or left leg. She states that she noticed that her right leg was weaker not functioning properly at approximately 6:00 a.m. when waking. She states that she was last normal when she retired last night between 11:00 p.m. and midnight. She does not smoke cigarettes. She denies a history of heart murmur atrial fibrillation myocardial infarction congestive heart failure stroke but admits to diabetes mellitus and hypertension. She states that she has never been told that she has had a neuropathy or any vascular problems with her legs. She currently denies any headache loss of vision change in vision double vision. She does not have any chest pain cough shortness of breath palpitations dizziness irregular heartbeat. She has had no abdominal pain nausea vomiting diarrhea incontinence of urine or stool any urinary symptoms. Related Data Home Medications Medication Instructions Recorded Confirmed albuterol sulfate [Proventil HFA] 0.09 mg IH PRN #0 04/11/11 12/06/19 Multivitamin, Minerals, and 1 tab PO Q DAY #0 08/29/12 12/06/19 (#CENTRUM SILVER) VITAMIN D (Vitamin D3) 1,000 unit PO QDAY #0 08/29/12 12/06/19 montelukast [Singulair] 10 mg PO QDAY #0 08/29/12 12/06/19 [tumeric] 1,000 mg PO QDAY #0 11/22/17 12/06/19 cyanocobalamin (vitamin B-12) 1,000 mcg PO DAILY 12/06/18 12/06/19 1,000 mcg capsule diclofenac-misoprostol [Arthrotec 1 tab PO DAILY 12/06/19 12/06/19 75] Previous Rx's Medication Instructions Recorded Glucose: Home Monitor ea SEE INSTRUCTIONS #1 01/03/18 Lancets ea #100 01/03/18 estradiol 0.5 mg PO QDAY #90 tab 01/25/19 diclofenac 75 mg-misoprostol 200 See Rx Instructions .ROUTE 07/03/19 mcg tablet,immediate,delayed .COMPLEX #90 tab release atorvastatin 20 mg tablet 20 mg PO DAILY #90 tab 09/15/19 glipizide 2.5 mg tablet, extended 2.5 mg PO BID #180 tab 09/15/19 release 24 hr metformin 1,000 mg tablet 1,000 mg PO BIDCC #180 tab 09/15/19 tramadol 50 mg tablet 50 mg PO Q6H #30 tab 11/15/19 budesonide 180 mcg/actuation 180 mcg INHALATION BIDRT #1 each 11/23/19 breath activated powder inhaler amlodipine 10 mg tablet 10 mg PO DAILY #90 tab 11/30/19 lisinopril 10 mg tablet See Rx Instructions .ROUTE 11/30/19 .COMPLEX #360 tablet Allergies Allergy/AdvReac Type Severity Reaction Status Date / Time erythromycin base Allergy Severe Hives Verified 12/06/19 07:31 [ERYTHROMYCIN BASE] sulfamethoxazole Allergy Severe Hives Verified 12/06/19 07:31 [From SEPTRA] Sulfa (Sulfonamide Allergy Unknown Verified 12/06/19 07:31 Antibiotics) [SULFA (SULFONAMIDE ANTIBIOTICS)] trimethoprim [From JULRA] Allergy Unknown Verified 12/06/19 07:31 hydrocodone [HYDROCODONE] AdvReac Mild N/V Verified 12/06/19 07:31 oxycodone [From PERCOCET] AdvReac Unknown Very Verified 12/06/19 07:31 lethargic Review of Systems Review of Systems ROS Unobtainable: All systems reviewed & are unremarkable except as noted in HPI and below Patient History Medical History Abnormal EKG (Acute) Carpal tunnel syndrome (Resolved ~2005) Chronic renal failure, stage 2 (mild) (Chronic) Colon polyps (Resolved 02/2007) Degenerative arthritis of left knee (Acute) Diabetes (Chronic Unknown) Fatigue (Acute) Hyperlipemia (Chronic Unknown) Hypertension (Chronic Unknown) Leg swelling (Acute) Low back pain (Chronic ~2015) Osteoarthritis (Chronic Unknown) Unilateral primary osteoarthritis, left knee (Acute) Surgical History History of knee replacement S/P total abdominal hysterectomy and bilateral salpingo-oophorectomy Status post delivery Family History Mother Diabetes mellitus Hypertension Degenerative joint disease Obesity Father Aortic aneurysm Grandfather Heart disease Grandmother Diabetes mellitus Obesity Grandfather No problems noted. Grandmother Pneumonia Social History household members: spouse Smoking Status: Never smoker alcohol intake: never Smoking Status: Never smoker Substance Use Type: does not use Exam Narrative Exam Narrative: PHYSICAL EXAM: CONSTITUTIONAL: Awake, Alert, Oriented, Coherent, Cooperative in NAD. Does not appear toxic or ill. Slow to respond and hesitates and answering some questions. HEAD: AT/NC EENT: PERRL, FROM of eyes, no discharge, no nystagmus No epistaxis or nasal drainage Oral mucosa is moist and pink, posterior pharynx is without erythema or exudate. NECK: Supple, no obvious JVD, Trachea is midline without stridor, no palpable LN or masses. SPINE: No gross deformity, no palpable tenderness of the cervical, thoracic, lumbar or sacral spine. However, the patient did not complain of any specific tenderness or deformity when palpating the lumbar spine but she side as though it was uncomfortable. She complained that she had discomfort when attempting to sit up in the small of her back. She had difficulty sitting upright. No CVA tenderness. THORAX: No deformity, retractions, chest wall tenderness, subcutaneous air or crepitice. LUNGS: Clear with symmetrical breath sounds without respiratory distress HEART: Normal heart tones, regular rhythm and rate without murmur. Heart tones are muffled and distant. There was no irregularity noted. ABDOMEN: Soft, non-tender, normal bowel sounds without guarding, rebound, rigidity or palpable mass. LYMPHATIC: no palpable lymph nodes EXTREMITIES: No gross deformity. No pitting edema. No significant calf tenderness. The patient is unable to lift either the right or left leg off the bed and hold them up against gravity for a count of 5. Sensation is within normal limits and symmetrical in both legs to light touch and rubbing.. Patient had symmetrical plantar and dorsiflexion strength. Deep tendon reflexes were 1+. SKIN: No rash, bruising, petechiae or purpura. NEURO: Awake, alert, oriented, conversive, cranial nerves II-XII are symmetrical and normal, moves all 4 extremities and is ambulatory. The patient is unable to hold either leg off the bed for 5 seconds. She lets them down slowly. However plantar and dorsiflexion strength in each foot is symmetrical and good. Deep tendon reflexes were 1+. Sensation to light touch was normal. There was no drift of the arms. [id number] within normal limits. Rapid alternating motions with opposition of all fingers to the thumb sign will continuously in both hands was symmetrical. No visual field defect. Cerebellar functions are normal. Initial Vital Signs Initial Vital Signs: Vital Signs Temperature 98.1 F 12/06/19 07:19 Pulse Rate 96 H 12/06/19 07:19 Respiratory Rate 18 12/06/19 07:19 Blood Pressure 191/67 H 12/06/19 07:19 Pulse Oximetry 97 12/06/19 07:19 Course Course Course Narrative: 0951; the patient's x-ray of the lumbosacral spine shows no new acute pathology. The patient has some spondylolisthesis which is unchanged from before as well as osteo degenerative changes. The patient has no fracture of the pelvis. CT scan is negative for any acute pathology. 1233: I spoke with Dr. Leo who agreed to admit the patient. When I evaluated the patient I thought that her we give this was primarily isolated and localized to her right leg. I did not think that she had hemiparesis and weakness in the right arm but physical therapy has been working with her and thought that she was developing some weakness in her right arm also. The patient may need to have an MRI of her head and possibly her lumbar spine to evaluate the weaknesses. Orders Ordered: Acetaminophen (Tylenol) 650 mg PO Q6HR PRN PRN Reason: Fever/Mild Pain (1-3) Last Admin: 12/06/19 18:53 Dose: 650 mg Documented by: HOLLI Albuterol (Ventolin Hfa) 1 puff INH PRN PRN PRN Reason: Shortness Of Breath Or Wheezing Amlodipine Besylate (Norvasc) 10 mg PO DAILY [facility] Aspirin (Aspirin) 325 mg PO DAILY [facility] Last Admin: 12/06/19 18:38 Dose: 325 mg Documented by: HOLLI Atorvastatin Calcium (Lipitor) 20 mg PO DAILY [facility] Budesonide (Pulmicort 90mcg Flexhaler) 1 puff INH BID [facility] Dextrose (D50w) 25 gm IV PRN PRN PRN Reason: Hypoglycemia Estradiol (Estrace) 0.5 mg PO DAILY [facility] Glipizide (Glucotrol Xl) 2.5 mg PO BID [facility] Insulin Aspart (Novolog Flexpen) 0 unit SUBCUT ACHS [facility]; Protocol Last Admin: 12/06/19 18:39 Dose: 2 unit Documented by: HOLLI Cosigned by: MILAD Lisinopril (Zestril) 20 mg PO BID [facility] Melatonin (Melatonin) 6 mg PO BEDTIME [facility] Metformin HCl (Glucophage) 1,000 mg PO BIDWM [facility] Last Admin: 12/06/19 18:38 Dose: 1,000 mg Documented by: Admin: 12/06/19 18:02 Dose: Not Given Documented by: HLOLI Montelukast Sodium (Singulair) 10 mg PO DAILY [facility] Naloxone HCl (Narcan) 0.2 mg IV Q2MIN PRN PRN Reason: Opiate Reversal Non-Formulary Medication (Diclofenac-Misoprostol [Arthrotec 75]) 1 tab PO DAILY [facility] Tramadol HCl (Ultram) 50 mg PO Q6H [facility] Last Admin: 12/06/19 18:54 Dose: 50 mg Documented by: HOLLI Vitamin D (Vitamin D3) 1,000 unit PO DAILY [facility] Discontinued Medications Amiloride HCl (Amiloride Hcl) 10 mg PO NOW ONE Stop: 12/06/19 18:17 Last Admin: 12/06/19 19:53 Dose: Not Given Documented by: HOLLI Amlodipine Besylate (Norvasc) 10 mg PO NOW ONE Stop: 12/06/19 18:22 Last Admin: 12/06/19 18:38 Dose: 10 mg Documented by: HOLLI Hydralazine HCl (Apresoline) 10 mg IV NOW ONE Stop: 12/06/19 12:39 Last Admin: 12/06/19 13:36 Dose: 10 mg Documented by: RADHA Sodium Chloride (Normal Saline 0.9%) 1,000 mls @ 1,000 mls/hr IV BOLUS ONE Stop: 12/06/19 08:43 Last Infusion: 12/06/19 14:16 Dose: 1,000 mls/hr Documented by: Admin: 12/06/19 13:29 Dose: 1,000 mls/hr Documented by: NICOLESENEm Lisinopril (Zestril) 20 mg PO .COMPLEX [facility]ARY Lisinopril (Zestril) 40 mg PO .COMPLEX [facility]ARY Vital Signs Vital signs: Vital Signs - 8 hr 12/06/19 13:36 Pulse Rate 89 Blood Pressure 170/98 H MDM - Extremity Injury (Lower) Lab Data Attestation: I reviewed the patient's lab results. Result diagrams: 12/06/19 08:30 12/06/19 08:30 Labs: Lab Results 12/06/19 12/06/19 12/06/19 Range/Units 08:30 08:30 08:30 WBC 9.0 (4.5-11.0) X10^3/uL RBC 4.87 (4.0-5.2) X10^6/uL Hgb 15.3 (12.0-16.0) g/dL Hct 45.3 (36-46) % MCV 92.9 (80-100) fL MCH 31.4 (26-34) PG MCHC 33.8 (30-36) % RDW 14.4 (11.6-14.8) % Plt Count 242 (150-400) X10^3/uL Neut % (Auto) 76.5 H (50-75) % Lymph % (Auto) 14.9 L (25-40) % Mcdonald % (Auto) 6.0 (3-14) % Eos % (Auto) 2.0 (2-4) % Baso % (Auto) 0.6 (0-2) % Neut # (Auto) 6900 (5243-9798) /uL Lymph # (Auto) 1300 (3659-4063) /uL Mcdonald # (Auto) 500 (0-900) /uL Eos # (Auto) 200 (0-450) /uL Baso # (Auto) 100 (0-100) /uL Sodium 140 (137-145) mmol/L Potassium 4.1 (3.4-5.1) mmol/L Chloride 102 (98-107) mmol/L Carbon Dioxide 26 (22-32) mmol/L BUN 27 H (7-17) mg/dL Creatinine 0.90 (0.52-1.04) mg/dL Estimated GFR > 60.0 (>60) mL/min BUN/Creatinine Ratio 30.0 H (6-22) Glucose 167 H (80-110) mg/dL Calcium 10.2 (8.4-10.2) mg/dL Magnesium 1.9 (1.6-2.3) mg/dL Total Bilirubin 0.5 (0.2-1.3) mg/dL AST 32 (14-36) IU/L ALT 26 (<35) IU/L Alkaline Phosphatase 77 (38-126) U/L Total Creatine Kinase 25 L (30-135) U/L Troponin I 0.013 (0.01-0.034) ng/mL Total Protein 7.3 (6.3-8.2) g/dL Albumin 4.0 (3.5-5.0) g/dL Globulin 3.3 (1.7-4.1) g/dL Albumin/Globulin Ratio 1.2 (1.0-2.8) Urine RBC (0-5/HPF) Urine WBC (0-5/HPF) Ur Squamous Epith Cells (0-5/HPF) Amorphous Sediment Urine Bacteria (None) Urine Mucus (Negative) Ur Culture Indicated? 12/06/19 Range/Units 09:04 WBC (4.5-11.0) X10^3/uL RBC (4.0-5.2) X10^6/uL Hgb (12.0-16.0) g/dL Hct (36-46) % MCV (80-100) fL MCH (26-34) PG MCHC (30-36) % RDW (11.6-14.8) % Plt Count (150-400) X10^3/uL Neut % (Auto) (50-75) % Lymph % (Auto) (25-40) % Mcdonald % (Auto) (3-14) % Eos % (Auto) (2-4) % Baso % (Auto) (0-2) % Neut # (Auto) (6302-7536) /uL Lymph # (Auto) (6325-5556) /uL Mcdonald # (Auto) (0-900) /uL Eos # (Auto) (0-450) /uL Baso # (Auto) (0-100) /uL Sodium (137-145) mmol/L Potassium (3.4-5.1) mmol/L Chloride (98-107) mmol/L Carbon Dioxide (22-32) mmol/L BUN (7-17) mg/dL Creatinine (0.52-1.04) mg/dL Estimated GFR (>60) mL/min BUN/Creatinine Ratio (6-22) Glucose (80-110) mg/dL Calcium (8.4-10.2) mg/dL Magnesium (1.6-2.3) mg/dL Total Bilirubin (0.2-1.3) mg/dL AST (14-36) IU/L ALT (<35) IU/L Alkaline Phosphatase (38-126) U/L Total Creatine Kinase (30-135) U/L Troponin I (0.01-0.034) ng/mL Total Protein (6.3-8.2) g/dL Albumin (3.5-5.0) g/dL Globulin (1.7-4.1) g/dL Albumin/Globulin Ratio (1.0-2.8) Urine RBC None seen (0-5/HPF) Urine WBC 0-1/hpf (0-5/HPF) Ur Squamous Epith Cells 5-10 /hpf H (0-5/HPF) Amorphous Sediment 2+ Urine Bacteria Occasional (0-1) (None) Urine Mucus 1+ H (Negative) Ur Culture Indicated? Cult not indicated Point of Care Testing Glucose POC 125 Urine Dip Bedside Urine Glucose Negative Bedside Urine Bilirubin - Negative Bedside Urine Ketone + 15 Urine Specific [place] 1.025 Bedside Urine Occult Blood - Negative Bedside Urine pH 5.5 Bedside Urine Protein +/- 15 Bedside Urine Urobilinogen - Negative Bedside Urine Nitrite - Negative Bedside Urine Leukocytes + 70 Esterase ECG Data Attestation: I personally reviewed and interpreted this ECG as follows: Interpretation: The patient's EKG obtained at 09:0 2:05 a.m. on December 06 reveals a sinus rhythm with a ventricular rate of 96. The intervals are normal. QTC is not prolonged. [place] is normal. The patient has very small R waves in leads V1 and III. There are no acute diagnostic ST segment changes. The only T-wave inversion is in lead aVL. T-waves are flat in lead number I. The EKG is not irregular or reveals atrial fibrillation. atrial fib Discharge Plan Departure Patient Disposition: Admitted As Inpatient Clinical Impression: Weakness Hypertension Qualifiers: Hypertension type: essential hypertension Qualified Code(s): I10 - Essential (primary) hypertension Hemiparesis Qualifiers: Hemiparesis etiology: unspecified Hemiparesis laterality: unspecified Qualified Code(s): G81.90 - Hemiplegia, unspecified affecting unspecified side Discharge Date/Time: 12/06/19 14:30 Referrals: Noah Jorgensen MD [Primary Care Provider] - Admit Date/Time: 12/06/19 14:02 Admit Provider: Gonzalo Leo
--- NOTE | 2019-12-06 07:44 | DI.CT.S_ITS ---
PROCEDURE: CT HEAD/BRAIN WO CON INDICATIONS: weakness right leg, r/o possble stroke (low probability) TECHNIQUE: Noncontrast 4.5 mm thick angled axial sections acquired from the foramen magnum to the vertex, with coronal and sagittal reformats. For radiation dose reduction, the following was used: automated exposure control, adjustment of mA and/or kV according to patient size. COMPARISON: None. FINDINGS: Image quality: Excellent. CSF spaces: Basal cisterns are patent. No extra-axial fluid collections. The ventricles are symmetric in size and shape. Brain: No intracranial bleeds or masses. There is cerebral volume loss for age, with resultant ventricular and sulcal prominence. There are periventricular and deep white matter chronic small vessel ischemic changes. There is intracranial internal carotid artery atherosclerosis. Skull and face: Calvarium and visualized facial bones appear intact, without suspicious lesions. Sinuses: Visualized sinuses and mastoids are clear. IMPRESSION: No acute intracranial process. Dictated by: Will Cleveland M.D. on 12/06/2019 at 8:12 Approved by: Will Cleveland M.D. on 12/06/2019 at 8:14
--- NOTE | 2019-12-06 07:57 | DI.RAD.S_ITS ---
PROCEDURE: XR LUMBAR SPINE 2-3V INDICATIONS: missed and slipped out of recliner landing on buttock, TECHNIQUE: 2 views of the lumbar spine were acquired. COMPARISON: [facility], , L-SPINE MINIMUM 4 VIEWS, 08/18/2016, 19:43. FINDINGS: Bones: 5 [id number] vertebrae are present. There is mild levoscoliosis centered at L2 level. Minimal anterolisthesis of L4 and L5 is again seen. Degenerative endplate changes are noted throughout lumbar spine more prominent at L3-4 and L4-5 levels. No vertebral body compression fractures. No suspicious bony lesions. Soft tissues: Overlying bowel gas pattern is normal. No suspicious soft tissue calcifications. IMPRESSION: No acute lumbar spine fracture or dislocation. Scoliosis and grade 1 anterolisthesis of L4-5 level unchanged from prior study. 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 Dictated by: Richi Lomax M.D. on 12/06/2019 at 8:25 Approved by: Richi Lomax M.D. on 12/06/2019 at 8:27
--- NOTE | 2019-12-06 07:57 | DI.RAD.S_ITS ---
PROCEDURE: XR PELVIS 1-2V INDICATIONS: slipped out of recliner and landed on buttock TECHNIQUE: One view(s) of the pelvis acquired. COMPARISON: None. FINDINGS: Bones: No fractures or dislocations. No suspicious bony lesions. Bilateral hip joint osteophytic changes are seen more prominent on the right side. No evidence of avascular necrosis of femoral head. Soft tissues: Visualized bowel gas pattern is normal. No suspicious soft tissue calcifications. IMPRESSION: No gross acute pelvic fracture. Right worse than left bilateral hip joint osteoarthritis. Dictated by: Richi Lomax M.D. on 12/06/2019 at 8:30 Approved by: Richi Lomax M.D. on 12/06/2019 at 8:31
[2019-12-06 08:37] LABS: Add Manual Diff / Slide Review NO; Basophils Absolute Auto 100 /uL (0-100); Basophils Percent Auto 0.6 % (0-2); Eosinophils Absolute Auto 200 /uL (0-450); Hematocrit 45.3 % (36-46); Hemoglobin 15.3 g/dL (12.0-16.0); Lymphocytes Absolute Auto 1300 /uL (1100-4500); Lymphocytes Percent Auto 14.9 % (25-40); Mean Corpuscular HGB Conc 33.8 % (30-36); Mean Corpuscular Hemoglobin 31.4 PG (26-34); Mean Corpuscular Volume 92.9 fL (80-100); Monocytes Absolute Auto 500 /uL (0-900); Neutrophils Absolute Auto 6900 /uL (1500-7000); Neutrophils Percent Auto 76.5 % (50-75); Platelet Count 242 X10^3/uL (150-400); Red Blood Cell Count 4.87 X10^6/uL (4.0-5.2); Red Cell Distribution Width 14.4 % (11.6-14.8)
[2019-12-06 08:49] LABS: Alanine Aminotransferase 26 IU/L (<35); Albumin Globulin Ratio 1.2 (1.0-2.8); Alkaline Phosphatase 77 U/L (38-126); Aspartate Aminotransferase 32 IU/L (14-36); Bilirubin Total 0.5 mg/dL (0.2-1.3); Blood Urea Nitrogen 27 mg/dL (7-17); Calcium 10.2 mg/dL (8.4-10.2); Carbon Dioxide 26 mmol/L (22-32); Chloride 102 mmol/L (98-107); Creatine Kinase 25 U/L (30-135); Estimated Glomerular Filt Rate > 60.0 mL/min (>60); Globulin 3.3 g/dL (1.7-4.1); Glucose 167 mg/dL (80-110); HEMOLYSIS 25 (0-50); Potassium 4.1 mmol/L (3.4-5.1); Sodium 140 mmol/L (137-145); Total Protein 7.3 g/dL (6.3-8.2)
[2019-12-06 08:50] LABS: Magnesium 1.9 mg/dL (1.6-2.3)
[2019-12-06 09:00] LABS: Troponin I 0.013 ng/mL (0.01-0.034)
[2019-12-06 09:15] LABS: RBC Urine None Seen (0-5/HPF)
[2019-12-06 09:21] LABS: Amorphous Sediment Urine 2+; Bacteria Urine Occasional (0-1); Culture Indicated Urine Cult Not Indicated; Mucus Urine 1+ (Negative); Squamous Epithelial Cell Urine 5-10 /HPF (0-5/HPF); WBC Urine 0-1/HPF (0-5/HPF)
--- NOTE | 2019-12-06 12:47 | PC.NURSE ---
Assisted with ambulation trial with PT. See Physical Therapy note for complete details of trial.
--- NOTE | 2019-12-06 13:05 | PT.IIE ---
Surgical History (Last Reviewed 12/06/19 @ 07:47 by Noah Brito MD) History of knee replacement S/P total abdominal hysterectomy and bilateral salpingo-oophorectomy Status post delivery Medical History (Last Reviewed 12/06/19 @ 07:47 by Noah Brito MD) Abnormal EKG (Acute) Carpal tunnel syndrome (Resolved ~2005) Chronic renal failure, stage 2 (mild) (Chronic) Colon polyps (Resolved 02/2007) Degenerative arthritis of left knee (Acute) Diabetes (Chronic Unknown) Fatigue (Acute) Hyperlipemia (Chronic Unknown) Hypertension (Chronic Unknown) Leg swelling (Acute) Low back pain (Chronic ~2015) Osteoarthritis (Chronic Unknown) Unilateral primary osteoarthritis, left knee (Acute) Physical Therapy Inpatient Evaluation/Re-Eval M1 PT/OT-IP Prior Functional Status Start: 12/06/19 12:35 Freq: Status: Active Protocol: Document 12/06/19 12:36 MB (Rec: 12/06/19 13:05 MB [id number]) Medical Review Prior Functional Status Medical History Reviewed Yes Diet/Fluid Consistency Regular Communication Pt communicates needs Mobility and Gait Poor gait with SW, nearby as needed Activities of Daily Living and IADL's Assist from for ADLs as needed, was sleeping in recliner Social History Household Members spouse Living Arrangements House Number of Floors (Floors) One Floor Number of Stairs To Enter/Railing? 4 to enter with 2 rails Additional Social History Comment SW, RW, accessible BR, recently sleeping in recliner M2 PT-IP Current Condition Start: 12/06/19 12:35 Freq: Status: Active Protocol: Document 12/06/19 12:36 MB (Rec: 12/06/19 13:05 MB [id number]) Physical Therapy Current Condition Current Condition Evaluation Date 12/06/19 Treatment Diagnosis R sided weakness, greater in right leg Onset Date 12/06/2019 M3 PT-IP Subjective Start: 12/06/19 12:35 Freq: Status: Active Protocol: Document 12/06/19 12:36 MB (Rec: 12/06/19 13:05 MB [id number]) Subjective Physical Therapy Visit Type Type Initial Evaluation Visit Start Time 11:25 Visit Stop Time 12:15 Total Visit Minutes 50 Physical Therapy Visit Comments Patient Comments Pt reports she does not know why her right leg is weak because it is her good leg. She states that her left TKR was deferred d/t HTN Patient Goals To increase right leg strength Therapy Pain Assessment Pain When Pain Assessed During MMT Pain Present Pain Present Pain Reported FLACC Pain Scale Face Occasional grimace/frown Location All over when MMT, skin hurts Intensity 5 M4 PT-IP Mobility and Gait Start: 12/06/19 12:35 Freq: Status: Active Protocol: Document 12/06/19 12:36 MB (Rec: 12/06/19 13:05 MB [id number]) PT-Bed Mobility Assessment Rolling Type of Rolling Roll to Left Level of Assist 2 Person Assistance Supine to Sit Supine to Sit 2 Person Assistance Scooting Scooting to Edge of Bed Contact Guard Assistance PT-Transfer Assessment Sit to and From Stand Sit to and from Stand 2 Person Assistance Equipment Transfer Assistive Device Standard Walker Comments Mobility Comments Pt lying on gurney in ED upon PT arrival. She requires cues and +2 max A to roll to the left to prepare to sit edge of [place]. She requires asst to move legs and upper body asst through arms. She c/o pain with touch LEs as well as back pain, 5/10 Gait Assessment Gait Gait Assistance Required: Minimum Assistance Distance (Feet) 25 Assistive Devices Assistive Device Standard Walker Gait Deviations General Gait Pattern Decreased Stride Length, Decreased Feet Clearance, Flexed Trunk,Step-to Gait Factors Limiting Gait Function Factors Limiting Gait Function Decreased Strength,Poor Safety Awareness Comments Gait Comments 25' gait with her SW from [facility] to that is outside of room. She presents with decreased weight acceptance right LE, dragging her right foot occ, step-to gait, occ buckling of right hip and knee . Heavy use of walker and asst to move it occ. Upon entering , she tends to leg go of walker and reach for rail, despite cues. PT-Balance Assessment Sitting Balance and Reactions Static Sitting Balance Ability Fair Dynamic Sitting Balance Ability Fair Standing Balance and Reactions Static Standing Balance Ability Poor Dynamic Standing Balance Ability Poor Device Used SW Comments Other Balance Tests/Deviations/Treatment +2 asst for several sit to : stand trials in order to see if pt can maintain standing balance. Asst to don her underwear, put around ankles in sitting and then assisted to pull up in standing. +2 heavy asst to transfer to the w/c after she got up from toilet--pt's right leg gives way and she cannot pivot well on the left leg to the chair M5 PT-IP Objective Assessments Start: 12/06/19 12:35 Freq: Status: Active Protocol: Document 12/06/19 12:36 MB (Rec: 12/06/19 13:05 [id number]) Orientation Orientation/Cognition Level of Alertness Alert Orientation Name,Age,Birthday,Month,Date, Year,Day of Week,Place, Situation Language Function Ability No Deficits Noted Safety Awareness Decreased Safety Awareness Comments Pt tends to reach for grab bar , does not reach back for bed to sit despite multiple cues to do so. Gross Range of Motion Upper Extremity ROM Impairments Decreased end-range B shoulder flexion, mildly greater on the right Lower Extremity ROM Impairments Functionally drags right foot with gait. 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 Comments Strength Comments Right LE weakness with gait, once getting up from toilet, her right leg gives way and she requires heavy +2 asst for transfer to w/c Sensation Assessment Sensation Proprioception (Position) Impaired Comments Sensation Comments Impaired proprioception right toes M7 PT-IP Assessment and Plan Start: 12/06/19 12:35 Freq: Status: Active Protocol: Document 12/06/19 12:36 MB (Rec: 12/06/19 13:05 [id number]) PT Summary Assessment and Plan Potential Rehabilitation Potential Fair Summary Impairments Pain,ROM,Strength,Balance, Sensation,Bed Mobility, Transfers,Gait,Activity Tolerance Assessment Summary Pt is a 74 y/o female presenting with right LE greater than UE weakness in setting of recent HTN with BP today 163/93 supine and 171/98 sitting with HR 99-111 BPM. She was supposed to have a left TKR last week but did not have it d/t HTN. Tentative date is 12/27/2019. It is difficult to MMT patient d/t pain to touch in her skin. She presents with redness, dryness and swelling in her legs. She requires heavier asst after gait to bathroom and getting up from commode and she requires heavy +2 asst to transfer from the commode to the w/c. She will benefit from PT to maximize strength and mobility before returning to her home with her . Her head and lumbar x-rays were negative. She has many risk factors for stroke. Physician may order further testing. PT assists pt with toileting today d/t she is unable to perform without skilled assist for transfers or hygiene. Goals Bed Mobility Goal Independent Transfer Goal Independent Gait Goal Contact Guard Assistance Gait Distance 50 with RW Frequency of Treatment Frequency Of Treatment Twice a Day Treatment Plan Physical Therapy Treatment Plan Bed Mobility Training,Transfer Training,Gait Training, Therapeutic Exercise,Balance Retraining,Discharge Planning, Hot or Cold Pack,Neuromuscular Re-ed,Coordination Retraining Recommendations To Nursing Amount of Assist Needed 2 Person Assist,Mechanical Lift Discharge Recommendations Other Discharge Recommendations 24 hour asst and PT at d/c Transportation Needs at Discharge Wheelchair/Cabulance
[2019-12-06] MEDS: SODIUM CHLORIDE 0.9% 1,000 ML 1000 ML IV (13:29)
[2019-12-06] MEDS: HYDRALAZINE 20 MG/ML VIAL 10 MG IV (13:36)
--- NOTE | 2019-12-06 14:13 | DI.MRI.S_ITS ---
PROCEDURE: MR HEAD/BRAIN WO CON INDICATIONS: Right sided weakness TECHNIQUE: Noncontrast axial T1 spin echo, axial T2 fast spin echo, sagittal and axial FLAIR, coronal T2 fast spin echo, axial gradient echo, axial diffusion and ADC through the brain. COMPARISON: [facility], CT, CT HEAD/BRAIN WO CON, 12/06/2019, 7:50. FINDINGS: Image quality: Excellent. CSF Spaces: Basal cisterns are patent. No extra-axial fluid collections. Ventricles are normal in size and shape. Brain: No intracranial masses or hemorrhage. Rousseau/white matter interface is normal. Brainstem appears normal. Diffusion-weighted images demonstrate 3 definite acute or subacute small foci of ischemic insult. These are located at the right frontal lobe, the left fleming radiata, and the periventricular white matter immediately above on the left, without mass effect No chronic ischemic insults that would indicate presence of prior strokes with encephalomalacia but there is a relatively prominent degree of microvascular atherosclerotic change in the deep white matter of each hemisphere. Normal intravascular flow voids are present. Skull and face: Calvarium has normal marrow signal. Orbits appear normal. Sinuses: Sinuses and mastoids are clear. IMPRESSION: 3 small foci of acute or subacute ischemic injury is to the right frontal and left deep white matter tracts, without mass effect or associated hemorrhage. Embolic disease would be suspected given the bilateral nature of the findings. Relatively prominent superimposed chronic microvascular atherosclerotic change in the deep white matter. Dictated by: Baldev Randle M.D. on 12/06/2019 at 16:51 Approved by: Baldev Randle M.D. on 12/06/2019 at 16:55
--- NOTE | 2019-12-06 17:29 | DI.ECHO.S_ITS ---
[facility]---------+ [facility] +---------+ : : [address] : [place] : : : : [id number] : : : : Phone: [phone]+ Echocardiogram Report + + :Name: DEIRDRE RODRIGUEZ Study Date: 12/07/2019 Height: 65 in : :[facility] Weight: 248 lb : : Gender: Female BSA: 2.2 m2 : :: 1945 Age: 74 yrs BP: 145/71 mmHg: :Reason For Study: Hypertension : :Ordering Physician: Dr. Gonzalo Leo Performed By: LRF : :Referring: [facility] : + + Interpretation Summary Normal sinus rhythm. Normal LV size; moderate concentric LVH. Normal wall motion and LV systolic function. EF is 70-75%. Normal chamber sizes. Mild MAC; otherwise no significant valvular abnormalities. Estimated PA systolic pressure is 47 mm Hg assuming RA pressure of 3 mm Hg. No prior study available for comparison. Procedure: A two-dimensional transthoracic echocardiogram with color flow and Doppler was performed. The study quality was technically adequate. There is no prior echocardiogram noted for this patient. The patient was in normal sinus rhythm during the exam. Left Ventricle: The left ventricle is normal in size. Left ventricular wall thickness is moderately increased. The ejection fraction is estimated to be 70-75%. Left ventricular wall motion is normal. Right Ventricle: The right ventricle is normal in size and function. Atria: Both atria are normal in size. Mitral Valve: The mitral valve is normal in structure and function. There is mild mitral annular calcification. There is trace mitral regurgitation. Aortic Valve: The aortic valve is normal in structure and function. The aortic valve is trileaflet. The aortic valve opens well. No aortic regurgitation is present. Tricuspid Valve: The tricuspid valve is normal in structure and function. There is a trace or physiologic amount of tricuspid regurgitation. The right ventricular systolic pressure is estimated to be at least 47 mmHg based on an estimated right atrial pressure of 3 mm Hg. Pulmonic Valve: The pulmonic valve is not well visualized. Great Vessels: The aortic root is normal size. The dimensions of the ascending aorta are normal. The IVC is of normal diameter and collapses greater than 50% with a sniff. This suggests a low right atrial pressure of 3 mm Hg. Pericardium/ Pleura There is a trivial pericardial effusion noted. MMode/2D Measurements & Calculations LVIDd: 4.3 cm LVOT diam: 2.1 cm LVIDs: 2.7 cm Ao root diam: 2.8 cm FS: 37.1 % asc Aorta Diam: 3.2 cm EPSS: 1.1 cm Ao Arch Diam (Prox Trans): 3.1 cm IVSd: 1.5 cm LVPWd: 1.4 cm LV gavin. diameter/BSA (cm/m^2): 2.0 LV sys. diameter/BSA (cm/m^2): 1.3 LA A2 area: 19.8 cm2 RA long axis: 4.4 cm LA A4 area: 15.7 cm2 RA area: 14.0 cm2 LA length (vol): 4.7 cm RA vol: 37.8 ml LA vol: 56.1 ml RA : 17.4 ml/m2 LA vol index: 25.9 ml/m2 IVC diam: 1.9 cm RVD1 (basal): 3.8 cm RVD2 (mid): 3.8 cm TAPSE: 2.0 cm Doppler Measurements & Calculations Ao V2 max: 171.7 cm/sec LVOT Max Travis: 96.5 cm/sec Ao V2 mean: 127.0 cm/sec LV V1 max P.7 mmHg Ao max P.8 mmHg LV V1 VTI: 19.5 cm Ao mean P.9 mmHg GEOVANNA(I,D): 1.9 cm2 Ao V2 VTI: 33.8 cm GEOVANNA(V,D): 1.9 cm2 sev ratio: 0.58 GEOVANNA indexed to BSA (cm^2/m^2): 0.90 MV E max travis: 64.1 cm/sec TR max travis: 331.9 cm/sec MV A max travis: 87.4 cm/sec TR max P.1 mmHg MV E/A: 0.73 PA V2 max: 87.2 cm/sec Med Peak E' Travis: 6.3 cm/sec PA V2 mean: 61.6 cm/sec E/E' med: 10.2 PA mean P.7 mmHg Lat Peak E' Travis: 6.4 cm/sec PA Accel Time: 0.08 sec E/E' lat: 10.0 E/e' average: 10.1 MV dec time: 0.25 sec MV P1/2t: 73.8 msec MV P1/2t max travis: 64.5 cm/sec SV(LVOT): 65.7 ml MVA(P1/2t): 3.0 cm2 Electronically signed by: Aydee Rangel M.D. on Reading Physician:12/07/2019 03:40 PM
--- NOTE | 2019-12-06 17:30 | DI.MRI.S_ITS ---
PROCEDURE: MR LUMBAR SPINE WO CON INDICATIONS: Right leg weakness TECHNIQUE: Noncontrast sagittal T1 spin echo and T2 fast echo, sagittal STIR, axial T1 and T2 fast spin echo through the lumbar spine. In cases with scoliosis, additional coronal T2 fast spin echo may be performed. COMPARISON: , MR, L-SPINE WITHOUT CONTRAST, 10/11/2009, 15:55. , MR, L-SPINE WITHOUT CONTRAST, 04/20/2016, 11:02. , CR, L-SPINE 2-3 VIEWS, 04/03/2016, 12:51. , CR, L-SPINE MINIMUM 4 VIEWS, 08/18/2016, 19:43. FINDINGS: Image quality: Excellent. Alignment and Curvature: Mild levoconvex scoliotic curvature is noted. Bone Marrow: Marrow is of normal overall signal. No acute vertebral body compression fractures. Spinal Cord: Conus medullaris terminates at the L1 level. Visualized cord demonstrates normal signal and size. Paraspinous Soft Tissues: No paravertebral masses. T12-L1: Normal appearance. L1-L2: Normal appearance. L2-L3: Normal appearance. L3-L4: Moderate loss of disc height is seen. Loss of disc signal is seen. Moderate disc bulge is seen, which is eccentric to the right. Moderate to prominent facet hypertrophy is seen. There is moderate bilateral neural foraminal narrowing seen. At least moderate central canal narrowing is seen, as on series 5 image 20. These imaging findings have progressed compared to the prior study. L4-L5: Vomx-[id number] loss of disc height and disc signal can be seen. Moderate disc bulge is seen, which is eccentric to the right. There is moderate to prominent facet hypertrophy seen. There is at least moderate bilateral neural foraminal narrowing seen, left worse than right. There is at least moderate central canal narrowing seen. These degenerative changes are similar to 2016. L5-S1: Mild loss of disc height is seen. Loss of disc signal is seen. Moderate generalized disc bulge is seen. [id number]-[id number] facet hypertrophy is seen. There is at least moderate bilateral neural foraminal narrowing seen. No significant central canal narrowing is seen. When comparison is made with the prior examination, these findings are similar. IMPRESSION: Lower lumbar spine degenerative changes are seen, with progression at the L3-L4 level compared to 2016. Dictated by: Alli Lagos M.D. on 12/07/2019 at 10:57 Approved by: Alli Lagos M.D. on 12/07/2019 at 11:01
--- NOTE | 2019-12-06 17:48 | P.HP_ITS ---
History of Present Illness History of Present Illness Date Patient Seen: 12/06/19 Time Patient Seen: 17:48 Chief complaint: Right leg weakness Narrative: Right leg weakness. Patient in to the ER early this morning for right leg weakness. Patient went to bed last at his usual time. She normally sleeps in her recliner chair because of her back pain she has back pain when she lays in her bed. So he she typically sleeps in her recliner. She got this morning to walk. She normally uses a walker to ambulate because of she has a bad knee that was going to be operated on. She went to get up out of the chair and she noticed her right leg was weak and did not seem to cooperate. Needed help from her but she slipped and fell back and hit the chair. No major injuries however. She fell down to the floor. Unable to get back up. Paramedics were called.. Since she has not noticed any significant improvement of the right leg. Patient was evaluated in the emergency room and felt to have right leg weakness. Primarily through the assessment the physical therapist people apparently physical therapy people have been seeing her on a regular basis for her knee and they felt that she had significant weakness of the right leg and will be would be unable to manage at home. [place] the if the admission further physical therapy evaluation and treatment would be appropriate. Patient had apparently said chronic back pain. She has had back surgery of pe rhaps 10 years ago with a herniated disc. She has apparently has significant degenerative joint disease based on her description.. She takes Arthrotec which a combination of diclofenac and misoprostol and that seems to be adequate.. S stated she was being evaluated for left knee surgery. But was found to have elevated blood pressure and this was placed on hold for the time being. Other medical problems include diabetes mellitus which she monitors relatively closely. Her hypertension is been a challenge recently has gone up significantly over the last several days. Currently taking lisinopril 20 mg twice a day Dr. Jorgensen added amlodipine 10 mg couple days ago. History of hypertension only recent period her hyperlipidemia has been chronic. Patient History Medical History Abnormal EKG (Acute) Carpal tunnel syndrome (Resolved ~2005) Chronic renal failure, stage 2 (mild) (Chronic) Colon polyps (Resolved 02/2007) Degenerative arthritis of left knee (Acute) Diabetes (Chronic Unknown) Fatigue (Acute) Hyperlipemia (Chronic Unknown) Hypertension (Chronic Unknown) Leg swelling (Acute) Low back pain (Chronic ~2016) Osteoarthritis (Chronic Unknown) Unilateral primary osteoarthritis, left knee (Acute) Surgical History History of knee replacement S/P total abdominal hysterectomy and bilateral salpingo-oophorectomy Status post delivery Family & Social History Family History Mother Diabetes mellitus Hypertension Degenerative joint disease Obesity Father Aortic aneurysm Grandfather Heart disease Grandmother Diabetes mellitus Obesity Grandfather No problems noted. Grandmother Pneumonia Social History: household members spouse Prior Living Arrangements House Safety & Behavioral: Feels Safe in Current Yes Environment Been Physically Hurt or No Threatened By a Person Tobacco & Substance use: Smoking Status Never smoker alcohol intake never Substance Use Type does not use Meds Home Medications and Allergies Home Medications Medication Instructions Recorded Confirmed Type albuterol sulfate [Proventil HFA] 0.09 mg IH PRN #0 04/11/11 12/06/19 History Multivitamin, Minerals, and 1 tab PO Q DAY #0 08/29/12 12/06/19 History (#CENTRUM SILVER) VITAMIN D (Vitamin D3) 1,000 unit PO QDAY #0 08/29/12 12/06/19 History montelukast [Singulair] 10 mg PO QDAY #0 08/29/12 12/06/19 History [tumeric] 1,000 mg PO QDAY #0 11/22/17 12/06/19 History Glucose: Home Monitor ea SEE INSTRUCTIONS #1 01/03/18 11/30/19 Rx Lancets ea #100 01/03/18 11/30/19 Rx cyanocobalamin (vitamin B-12) 1,000 mcg PO DAILY 12/06/18 12/06/19 History 1,000 mcg capsule estradiol 0.5 mg PO QDAY #90 tab 01/25/19 12/06/19 Rx diclofenac 75 mg-misoprostol 200 See Rx Instructions .ROUTE 07/03/19 12/06/19 Rx mcg tablet,immediate,delayed .COMPLEX #90 tab release atorvastatin 20 mg tablet 20 mg PO DAILY #90 tab 09/15/19 12/06/19 Rx glipizide 2.5 mg tablet, extended 2.5 mg PO BID #180 tab 09/15/19 12/06/19 Rx release 24 hr metformin 1,000 mg tablet 1,000 mg PO BIDCC #180 tab 09/15/19 12/06/19 Rx tramadol 50 mg tablet 50 mg PO Q6H #30 tab 11/15/19 12/06/19 Rx budesonide 180 mcg/actuation 180 mcg INHALATION BIDRT #1 each 11/23/19 12/06/19 Rx breath activated powder inhaler amlodipine 10 mg tablet 10 mg PO DAILY #90 tab 11/30/19 12/06/19 Rx lisinopril 10 mg tablet See Rx Instructions .ROUTE 11/30/19 12/06/19 Rx .COMPLEX #360 tablet diclofenac-misoprostol [Arthrotec 1 tab PO DAILY 12/06/19 12/06/19 History 75] Allergies Allergy/AdvReac Type Severity Reaction Status Date / Time erythromycin base Allergy Severe Hives Verified 12/06/19 07:31 [ERYTHROMYCIN BASE] sulfamethoxazole Allergy Severe Hives Verified 12/06/19 07:31 [From SEPTRA] Sulfa (Sulfonamide Allergy Unknown Verified 12/06/19 07:31 Antibiotics) [SULFA (SULFONAMIDE ANTIBIOTICS)] trimethoprim [From SEPTRA] Allergy Unknown Verified 12/06/19 07:31 hydrocodone [HYDROCODONE] AdvReac Mild N/V Verified 12/06/19 07:31 oxycodone [From PERCOCET] AdvReac Unknown Very Verified 12/06/19 07:31 lethargic Review of Systems Review of Systems ROS Unobtainable: All systems reviewed & are unremarkable except as noted in HPI and below Exam Vital Signs (past 8 hours): - 12/06/19 09:51 12/06/19 12:32 12/06/19 13:36 Temperature Pulse Rate 90 100 H 89 Respiratory Rate 16 17 Blood Pressure 170/98 H Blood Pressure [Left Arm] 163/93 H Pulse Oximetry 94 97 12/06/19 14:09 12/06/19 15:15 12/06/19 16:05 Temperature 98.4 F 97.6 F Pulse Rate 91 H 109 H 100 H Respiratory Rate 18 22 20 Blood Pressure 180/117 H 190/106 H Blood Pressure [Left Arm] 157/90 H Pulse Oximetry 98 99 Oxygen Delivery Method Room Air Oxygen Flow Rate 0 Narrative Exam Narrative: Patient is examined in her hospital bed she is sitting up on the edge she appears in no distress. She does relate that she is not taking her amlodipine today. HEENT unremarkable. Lungs entirely clear. Cardiac exam regular rhythm no murmur gallop. Carotids 2+ no bruits. Abdominal exam no evidence lay nice no tenderness per Extremity shows 1+ edema. She has very dry skin apparently skin is fairly sensitive she described as ?old skin?. Neurologic exam cranial nerves 2-12 intact. She has normal strength the upper extremities. Lower extremities there is a vague difference in the strength from right burst and left not dramatic. Did not test her walking or ambulating further evaluation pending physical therapy. Objective Labs Result Diagrams: 12/06/19 08:30 12/06/19 08:30 Labs: Laboratory Results - last 24 hr 12/06/19 12/06/19 12/06/19 08:30 08:30 08:30 WBC 9.0 RBC 4.87 Hgb 15.3 Hct 45.3 MCV 92.9 MCH 31.4 MCHC 33.8 RDW 14.4 Plt Count 242 Neut % (Auto) 76.5 H Lymph % (Auto) 14.9 L [place] % (Auto) 6.0 Eos % (Auto) 2.0 Baso % (Auto) 0.6 Neut # (Auto) 6900 Lymph # (Auto) 1300 [place] # (Auto) 500 Eos # (Auto) 200 Baso # (Auto) 100 Sodium 140 Potassium 4.1 Chloride 102 Carbon Dioxide 26 BUN 27 H Creatinine 0.90 Estimated GFR > 60.0 BUN/Creatinine Ratio 30.0 H Glucose 167 H Calcium 10.2 Magnesium 1.9 Total Bilirubin 0.5 AST 32 ALT 26 Alkaline Phosphatase 77 Total Creatine Kinase 25 L Troponin I 0.013 Total Protein 7.3 Albumin 4.0 Globulin 3.3 Albumin/Globulin Ratio 1.2 Urine RBC Urine WBC Ur Squamous Epith Cells Amorphous Sediment Urine Bacteria Urine Mucus Ur Culture Indicated? 12/06/19 09:04 WBC RBC Hgb Hct MCV MCH MCHC RDW Plt Count Neut % (Auto) Lymph % (Auto) [place] % (Auto) Eos % (Auto) Baso % (Auto) Neut # (Auto) Lymph # (Auto) [place] # (Auto) Eos # (Auto) Baso # (Auto) Sodium Potassium Chloride Carbon Dioxide BUN Creatinine Estimated GFR BUN/Creatinine Ratio Glucose Calcium Magnesium Total Bilirubin AST ALT Alkaline Phosphatase Total Creatine Kinase Troponin I Total Protein Albumin Globulin Albumin/Globulin Ratio Urine RBC None seen Urine WBC 0-1/hpf Ur Squamous Epith Cells 5-10 /hpf H Amorphous Sediment 2+ Urine Bacteria Occasional (0-1) Urine Mucus 1+ H Ur Culture Indicated? Cult not indicated labs reviewed as above.. Back x-ray showed degenerative joint disease. CT of the head showed no acute changes. Assessment & Plan Assessment & Plan narrative: 1. Right leg weakness. Most likely is stemming from her lumbar spine. However cardiovascular events a need to be evaluated. Patient is at risk for this because her diabetes, hypertension, and hyperlipidemia. MRI stroke protocol to be done brain. Additionally will do an echocardiogram as perhaps as she is having an arrhythmia contributing to this. 2. If the MRI of the head echo etc. are unrevealing. Will do MRI of the lumbar spine will probably do this anyway as is likely gets contributing to the problem. 3. Hypertension is a problematic. We will keep her on the lisinopril 20 twice a day and give her the amlodipine now. During the course of next several hours of things do not respond will increase the dose of her lisinopril to 40 twice a day. 4. History of of chronic kidney injury stage II. Creatinine is normal now so this may be moved point. 5. Diabetes management historically has been reasonably well controlled. A1c last noted by patient was 6.6. This will be updated. 6. Chronic pain is agenda we do not have the medication as she typically takes. May may need to get her supply cleared by the pharmacist. 7. Expect patient to be here least 2 nights.. Patient to be evaluated by occupational therapy physical therapy. It dB determine about discharge planning. 8. Dr. Jorgensen to assume care tomorrow
--- NOTE | 2019-12-06 18:00 | PM.PN.1 ---
Exam Vital Signs (past 8 hours): - 12/06/19 12:32 12/06/19 13:36 12/06/19 14:09 Temperature Pulse Rate 100 H 89 91 H Respiratory Rate 17 18 Blood Pressure 170/98 H Blood Pressure [Left Arm] 163/93 H 157/90 H Pulse Oximetry 97 12/06/19 15:15 12/06/19 16:05 Temperature 98.4 F 97.6 F Pulse Rate 109 H 100 H Respiratory Rate 22 20 Blood Pressure 180/117 H 190/106 H Blood Pressure [Left Arm] Pulse Oximetry 98 99 Oxygen Delivery Method Room Air Oxygen Flow Rate 0 Objective Labs Result Diagrams: 12/06/19 08:30 12/06/19 08:30 Labs: Laboratory Results - last 24 hr 12/06/19 12/06/19 12/06/19 08:30 08:30 08:30 WBC 9.0 RBC 4.87 Hgb 15.3 Hct 45.3 MCV 92.9 MCH 31.4 MCHC 33.8 RDW 14.4 Plt Count 242 Neut % (Auto) 76.5 H Lymph % (Auto) 14.9 L [place] % (Auto) 6.0 Eos % (Auto) 2.0 Baso % (Auto) 0.6 Neut # (Auto) 6900 Lymph # (Auto) 1300 [place] # (Auto) 500 Eos # (Auto) 200 Baso # (Auto) 100 Sodium 140 Potassium 4.1 Chloride 102 Carbon Dioxide 26 BUN 27 H Creatinine 0.90 Estimated GFR > 60.0 BUN/Creatinine Ratio 30.0 H Glucose 167 H Calcium 10.2 Magnesium 1.9 Total Bilirubin 0.5 AST 32 ALT 26 Alkaline Phosphatase 77 Total Creatine Kinase 25 L Troponin I 0.013 Total Protein 7.3 Albumin 4.0 Globulin 3.3 Albumin/Globulin Ratio 1.2 Urine RBC Urine WBC Ur Squamous Epith Cells Amorphous Sediment Urine Bacteria Urine Mucus Ur Culture Indicated? 12/06/19 09:04 WBC RBC Hgb Hct MCV MCH MCHC RDW Plt Count Neut % (Auto) Lymph % (Auto) [place] % (Auto) Eos % (Auto) Baso % (Auto) Neut # (Auto) Lymph # (Auto) [place] # (Auto) Eos # (Auto) Baso # (Auto) Sodium Potassium Chloride Carbon Dioxide BUN Creatinine Estimated GFR BUN/Creatinine Ratio Glucose Calcium Magnesium Total Bilirubin AST ALT Alkaline Phosphatase Total Creatine Kinase Troponin I Total Protein Albumin Globulin Albumin/Globulin Ratio Urine RBC None seen Urine WBC 0-1/hpf Ur Squamous Epith Cells 5-10 /hpf H Amorphous Sediment 2+ Urine Bacteria Occasional (0-1) Urine Mucus 1+ H Ur Culture Indicated? Cult not indicated Assessment & Plan Assessment & Plan narrative: MRI brain report shows depression consistent with ischemia bilaterally. Three different spots. This is suspicious for embolism. Echocardiogram to be ordered patient has no history of atrial fibrillation that I am aware of anyway. Because of this we will place her on aspirin 325 daily
[2019-12-06] MEDS: ASPIRIN 325 MG TABLET PO (18:38)
[2019-12-06] MEDS: METFORMIN HCL 500 MG TABLET 1000 MG PO (18:38)
[2019-12-06] MEDS: AMLODIPINE 5 MG TABLET 10 MG PO (18:38)
[2019-12-06] MEDS: INSULIN ASPART 100 UNIT/ML INSULN PEN SUBCUT (18:39)
[2019-12-06] MEDS: ACETAMINOPHEN 325 MG TABLET 650 MG PO (18:53)
[2019-12-06] MEDS: TRAMADOL 50 MG TABLET PO (18:54)
[2019-12-06] MEDS: MELATONIN 3 MG TABLET 6 MG PO (21:27)
[2019-12-06] MEDS: lisinopriL 20 MG TABLET PO (21:27)
[2019-12-06] MEDS: BUDESONIDE 90mcg FLEXHALER (60 PUFF/DEVICE) INH (21:28)
[2019-12-06] MEDS: SODIUM CHLORIDE 0.9% FLUSH 10 ML IV (21:32)
[2019-12-07] VITALS (7 sets, daily range): BP systolic 141–157; BP diastolic 55–92; PULSE 70–87; RESP 13–18; TEMP 36.1–36.7; O2SAT 93–97
[2019-12-07] MEDS: TRAMADOL 50 MG TABLET PO ×3 (02:12→17:44)
[2019-12-07] MEDS: ACETAMINOPHEN 325 MG TABLET 650 MG PO ×3 (02:12→17:47)
[2019-12-07 05:45] LABS: Hemoglobin A1C% w Est Avg Glu 6.1 % (4.0-6.0)
[2019-12-07 05:50] LABS: Blood Urea Nitrogen 27 mg/dL (7-17); Calcium 9.6 mg/dL (8.4-10.2); Carbon Dioxide 26 mmol/L (22-32); Chloride 105 mmol/L (98-107); Estimated Glomerular Filt Rate > 60.0 mL/min (>60); Glucose 135 mg/dL (80-110); HEMOLYSIS < 15 (0-50); Potassium 3.6 mmol/L (3.4-5.1); Sodium 140 mmol/L (137-145)
--- NOTE | 2019-12-07 06:52 | DI.US.S_ITS ---
PROCEDURE: US CAROTID DOPPLER BI INDICATIONS: CVA TECHNIQUE: Color and pulse Doppler interrogation was performed of both carotid systems, with image documentation and velocity measurements. COMPARISON: None. FINDINGS: Stenosis calculations are based on SRU (Society of Radiologists in Ultrasound) criteria. The flow velocities and the arterial waveforms are normal within both carotid arterial systems. Atherosclerotic plaque is seen on both sides. The estimated degree of internal carotid artery stenosis is less than 50%. Antegrade flow is confirmed within both vertebral arteries. IMPRESSION: No hemodynamically significant stenosis is seen. Atherosclerotic plaque is noted bilaterally. Dictated by: Alli Lagos M.D. on 12/07/2019 at 8:19 Approved by: Alli Lagos M.D. on 12/07/2019 at 8:19
--- NOTE | 2019-12-07 07:21 | PT-IP ANOTE ---
PT checked on pt yesterday afternoon, 12/06/2019, at 1710. MRI brain results revealed ischemia with concern for embolism. PT does note facial assymmetry when speaking with pt. Pt is EOB with nsg nearby upon arrival. PT speaks with pt about outpatient PT plan and cancelling current appointments d/t she did not have her L TKR. Pt is agreeable to cancelling her current appointments but is not agreeable to cancelling appointments after 01/02/2020 d/t she thinks she will have her L TKR on 12/27/2019. PT encourages her that she will have to follow-up with PCP and orthopedic surgeon after this hospital adm before knee surgery and subsequent post-op PT. PT encourages pt to cancel all PT appointments at this time but pt con't to state that she is concerned about not getting apppointment slots for OPPT after surgery if she cancels all her appointments. PT is not able to initiate further acute treatment in p.m. d/t recent arrival up to floor from ED and nsg performing intake and Dr. Jorgensen arriving to review pt case. This a.m., PT notes that lumbar MRI and ECHO ordered. Will con't PT efforts.
--- NOTE | 2019-12-07 08:13 | PM.PN.1 ---
Subjective Subjective Date Patient Seen: 12/07/19 Time Patient Seen: 08:13 Interval history: Pleasant 74-year-old female, who is care I have assumed since Dr. Bonner left the practice, who is admitted yesterday by Dr. Leo (Thanks!) With right-sided specifically right leg weakness. She was admitted over concern for a stroke Patient with multiple risk factors of put her at risk of having a stroke including diabetes hypertension. Head CT unremarkable MR of the brain shows to small acute/subacute lesions in deep white matter on left and right side with normal angiography Echocardiogram pending Patient feels like she might be stronger although has not been up out of bed Patient has struggled recently with issues with fairly significant hypertension slowly improving it appears in that regard. Also is having severe pain of the left knee was set for knee replacement surgery last week but that was canceled because of her severe hypertension. Exam Vital Signs (past 8 hours): - 12/07/19 05:40 Temperature 97.3 F L Pulse Rate 70 Respiratory Rate 16 Blood Pressure 157/92 H Pulse Oximetry 95 Oxygen Delivery Method Room Air Oxygen Flow Rate 0 Objective Labs Result Diagrams: 12/06/19 08:30 12/07/19 05:07 Labs: Laboratory Results - last 24 hr 12/06/19 12/06/19 12/06/19 08:30 08:30 08:30 WBC 9.0 RBC 4.87 Hgb 15.3 Hct 45.3 MCV 92.9 MCH 31.4 MCHC 33.8 RDW 14.4 Plt Count 242 Neut % (Auto) 76.5 H Lymph % (Auto) 14.9 L [place] % (Auto) 6.0 Eos % (Auto) 2.0 Baso % (Auto) 0.6 Neut # (Auto) 6900 Lymph # (Auto) 1300 [place] # (Auto) 500 Eos # (Auto) 200 Baso # (Auto) 100 Sodium 140 Potassium 4.1 Chloride 102 Carbon Dioxide 26 BUN 27 H Creatinine 0.90 Estimated GFR > 60.0 BUN/Creatinine Ratio 30.0 H Glucose 167 H Hemoglobin A1c Calcium 10.2 Magnesium 1.9 Total Bilirubin 0.5 AST 32 ALT 26 Alkaline Phosphatase 77 Total Creatine Kinase 25 L Troponin I 0.013 Total Protein 7.3 Albumin 4.0 Globulin 3.3 Albumin/Globulin Ratio 1.2 Urine RBC Urine WBC Ur Squamous Epith Cells Amorphous Sediment Urine Bacteria Urine Mucus Ur Culture Indicated? 12/06/19 12/07/19 12/07/19 09:04 05:07 05:07 WBC RBC Hgb Hct MCV MCH MCHC RDW Plt Count Neut % (Auto) Lymph % (Auto) [place] % (Auto) Eos % (Auto) Baso % (Auto) Neut # (Auto) Lymph # (Auto) [place] # (Auto) Eos # (Auto) Baso # (Auto) Sodium 140 Potassium 3.6 Chloride 105 Carbon Dioxide 26 BUN 27 H Creatinine 0.90 Estimated GFR > 60.0 BUN/Creatinine Ratio 30.0 H Glucose 135 H Hemoglobin A1c 6.1 H Calcium 9.6 Magnesium Total Bilirubin AST ALT Alkaline Phosphatase Total Creatine Kinase Troponin I Total Protein Albumin Globulin Albumin/Globulin Ratio Urine RBC None seen Urine WBC 0-1/hpf Ur Squamous Epith Cells 5-10 /hpf H Amorphous Sediment 2+ Urine Bacteria Occasional (0-1) Urine Mucus 1+ H Ur Culture Indicated? Cult not indicated Assessment & Plan Assessment & Plan narrative: 1. CVA-patient with evidence of an acute/subacute CVA. A bit puzzling since the appearance appears to be sort of small-vessel kind of stroke but it is bilateral within the brain suggesting embolic source. At this point she needs to complete her workup which is why I ordered a carotid ultrasound as well even though that is unlikely to be a source of bilateral emboli. She is currently on telemetry monitoring for irregular heart rhythms and will have an echocardiogram done. I have increased her atorvastatin to high-intensity statin levels which would be appropriate in this setting. She will need physical therapy and occupational therapy and when felt to be safe to return home I will discharge her. Blood pressure is not stellar but certainly in the setting of an acute CVA would allow some level of permissive hypertension etcetera. 2. Diabetes-continue usual meds and follow numbers more carefully here in the hospital. Continue with diabetic diet. 3. Hypertension-numbers are improved over her baseline outpatient numbers. Continue to monitor here in the hospital and if necessary add additional antihypertensive therapy upon discharge 4. Hyperlipidemia-as above have increased dose of atorvastatin into the high-intensity statin range 5. Osteoarthritis-severe symptoms currently in the left knee needing surgery. That may impact her ability to function with now the other side being affected by his stroke. Again physical therapy evaluation. Will continue her anti-inflammatories limited pain meds and if necessary limited amount of opiates as well 6. VTE prophylaxis-sequential compression devices are being employed. Note: Greater than 35 minutes was spent evaluating the patient on the floor, including examining the patient, discussing clinical course with clinical and nursing staff, reviewing clinical course in the computer, preparing documentation and writing orders for continued management of care, discussing status with family as appropriate, reviewing plans for the next 24 hours with both patient/family and nursing staff as appropriate.
[2019-12-07] MEDS: BUDESONIDE 90mcg FLEXHALER (60 PUFF/DEVICE) INH ×2 (09:12→19:57)
[2019-12-07] MEDS: INSULIN ASPART 100 UNIT/ML INSULN PEN SUBCUT ×3 (09:15→18:07)
[2019-12-07] MEDS: METFORMIN HCL 500 MG TABLET 1000 MG PO ×2 (09:16→17:44)
[2019-12-07] MEDS: ASPIRIN 325 MG TABLET PO (09:17)
[2019-12-07] MEDS: AMLODIPINE 5 MG TABLET 10 MG PO (09:17)
[2019-12-07] MEDS: lisinopriL 20 MG TABLET PO ×2 (09:18→20:29)
[2019-12-07] MEDS: estradioL 0.5 MG TABLET PO (09:18)
[2019-12-07] MEDS: CHOLECALCIFEROL (VITAMIN D3) 1,000 UNIT TABLET 1000 UNIT PO (09:18)
[2019-12-07] MEDS: DICLOFENAC MISOPROSTOL 1 EACH PO (09:18)
[2019-12-07] MEDS: MONTELUKAST 10 MG TABLET PO (09:19)
[2019-12-07] MEDS: SODIUM CHLORIDE 0.9% FLUSH 10 ML IV ×2 (09:21→20:25)
[2019-12-07] MEDS: ATORVASTATIN 20 MG TABLET 40 MG PO (09:21)
--- NOTE | 2019-12-07 12:37 | PT.IPTN ---
Current Diagnoses Cerebral infarction due to embolism of unspecified cerebral artery (12/06/19) Physical Therapy Treatment Note M2 PT-IP Current Condition Start: 12/06/19 12:35 Freq: Status: Active Protocol: Document 12/06/19 12:36 MB (Rec: 12/06/19 13:05 MB [id number]) Physical Therapy Current Condition Current Condition Evaluation Date 12/06/19 Treatment Diagnosis R sided weakness, greater in right leg Onset Date 12/06/2019 M3 PT-IP Subjective Start: 12/06/19 12:35 Freq: Status: Active Protocol: Document 12/07/19 09:40 MB (Rec: 12/07/19 12:32 MB [id number]) Subjective Physical Therapy Visit Type Type Treatment Note Visit Start Time 09:15 Visit Stop Time 09:40 Total Visit Minutes 25 Notes Nsg in room for most of treatment to address various patient needs including medication Physical Therapy Visit Comments Patient Comments Pt states that she is ready for PT, is also hoping for pain medication. She denies pain at rest, sitting in recliner Patient Goals Pt progresses towards transfer and gait goals today Therapy Pain Assessment Pain When Pain Assessed At Rest Pain Present Pain Present Denied Pain Location Bilateral Leg Intensity 2 Scale Used [place]alie[place]emp (Faces) M4 PT-IP Mobility and Gait Start: 12/06/19 12:35 Freq: Status: Active Protocol: Document 12/07/19 09:40 MB (Rec: 12/07/19 12:36 MB [id number]) PT-Transfer Assessment Sit to and From Stand Sit to and from Stand 1 Person Assistance Equipment Transfer Assistive Device Gait Belt,Front Wheeled Walker Transfers Transfer Technique Sit to stands x4 chair to walker Transfer Ability Level of Assist 1 Person Assistance Comments Mobility Comments Min A and then CGA with gait belt for transfers today. Cues for pushing up from chair and reaching back for it to sit. Cues to stand full upright with walker. Pt tends to reach for walker and not step back to chair. Sit to stand reps for functional strengthening. Improved this date compared to getting up from toilet. Gait Assessment Gait Gait Assistance Required: Minimum Assistance Distance (Feet) 7 Assistive Devices Assistive Device Front Wheeled Walker Gait Deviations General Gait Pattern Decreased Stride Length, Decreased Feet Clearance, Flexed Trunk,Step-to Gait Factors Limiting Gait Function Factors Limiting Gait Function Decreased Strength,Poor Safety Awareness Comments Gait Comments Pt has better upright with walker today and this may have to do with shorter gait distance and use of walker with wheels. She has decreased B foot clearance, step-length and tends to press into walker. 2 sets forward and back gait with walker to work on retropulsion and approaching chair safely. M5 PT-IP Objective Assessments Start: 12/06/19 12:35 Freq: Status: Active Protocol: Document 12/06/19 12:36 MB (Rec: 12/06/19 13:05 MB [id number]) Orientation Orientation/Cognition Level of Alertness Alert Orientation Name,Age,Birthday,Month,Date, Year,Day of Week,Place, Situation Language Function Ability No Deficits Noted Safety Awareness Decreased Safety Awareness Comments Pt tends to reach for grab bar , does not reach back for bed to sit despite multiple cues to do so. Gross Range of Motion Upper Extremity ROM Impairments Decreased end-range B shoulder flexion, mildly greater on the right Lower Extremity ROM Impairments Functionally drags right foot with gait. 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 Comments Strength Comments Right LE weakness with gait, once getting up from toilet, her right leg gives way and she requires heavy +2 asst for transfer to w/c Sensation Assessment Sensation Proprioception (Position) Impaired Comments Sensation Comments Impaired proprioception right toes M6 PT-IP Treatment Start: 12/06/19 12:35 Freq: Status: Active Protocol: Document 12/07/19 09:40 MB (Rec: 12/07/19 12:32 MB [id number]) Physical Therapy Treatment Education Brace Education Patient,Caregiver Other Treatments Other Treatment Performed Educated in benefits of RW, wheels on outside M7 PT-IP Assessment and Plan Start: 12/06/19 12:35 Freq: Status: Active Protocol: Document 12/07/19 09:40 MB (Rec: 12/07/19 12:32 MB [id number]) PT Summary Assessment and Plan Summary Assessment Summary Cleared with nsg before treatment. Pt awaiting lumbar MRI. Carotid US revealed less than 50% stenosis in setting of ischemic changes in brain from MRI last date and concern for embolic problem. Pt progresses towards transfer and short gait goals this morning. Pain is not a limiting factor today. Her BP in left UE is improved compared to yesterday and is 152/87. Con't acute PT for mobility, transfer, functional strength and gait training. Her legs are more edematous and have increased redness compared to last date. Goals Bed Mobility Goal Independent Transfer Goal Independent Gait Goal Contact Guard Assistance Gait Distance 50 with RW Frequency of Treatment Frequency Of Treatment Twice a Day Treatment Plan Physical Therapy Treatment Plan Bed Mobility Training,Transfer Training,Gait Training, Therapeutic Exercise,Balance Retraining,Discharge Planning, Hot or Cold Pack,Neuromuscular Re-ed,Coordination Retraining Recommendations To Nursing Amount of Assist Needed 2 Person Assist Discharge Recommendations Other Discharge Recommendations 24 hour asst and PT at d/c, PT recommends Inpatient Rehabilitation disposition location for up to 3 hours of therapy (divided up) a day. Pt was able to ambulate with walker and has support at home [employer]AM[employer]ER
--- NOTE | 2019-12-07 16:14 | PT.IPTN ---
Current Diagnoses Cerebral infarction due to embolism of unspecified cerebral artery (12/06/19) Physical Therapy Treatment Note M2 PT-IP Current Condition Start: 12/06/19 12:35 Freq: Status: Active Protocol: Document 12/06/19 12:36 MB (Rec: 12/06/19 13:05 MB [id number]) Physical Therapy Current Condition Current Condition Evaluation Date 12/06/19 Treatment Diagnosis R sided weakness, greater in right leg Onset Date 12/06/2019 M3 PT-IP Subjective Start: 12/06/19 12:35 Freq: Status: Active Protocol: Document 12/07/19 15:35 KS (Rec: 12/07/19 16:45 KS [id number]) Subjective Physical Therapy Visit Type Type Treatment Note Visit Start Time 15:35 Visit Stop Time 16:14 Total Visit Minutes 39 Notes Nursing present during ambulation to bathroom and provided pericare. Physical Therapy Visit Comments Patient Comments Pt states that she is feeling much better today and is eager to use the bathroom. Patient Goals Pt progresses towards transfer and gait goals today Therapy Pain Assessment Pain When Pain Assessed After Treatment Pain Present Pain Present Denied Pain M4 PT-IP Mobility and Gait Start: 12/06/19 12:35 Freq: Status: Active Protocol: Document 12/07/19 15:35 KS (Rec: 12/07/19 16:45 KS [id number]) PT-Bed Mobility Assessment Scooting Scooting to Edge of Bed Contact Guard Assistance PT-Transfer Assessment Sit to and From Stand Sit to and from Stand Moderate Assistance,1 Person Assistance Equipment Transfer Assistive Device Gait Belt,Front Wheeled Walker Transfers Transfer Technique Pt ambulated w/ FWW. Transfer Ability Level of Assist 1 Person Assistance Comments Mobility Comments Pt was sitting in chair upon arrival from therapy. Instructed pt in LE strengthening exercises including 1X10 LAQs, ankle pumps, heel slides, and seated marching. Pt then scooted to edge of chair CGA in preparation to stand. Mod A for sit<>stand w/ cues to p/u from chair. Pt then requested to use bathroom. Nursing called in for assistance to follow w/ chair for safety. Pt was able to march in place, then sat back down w/ Min A and mod cues to reach back for chair. Pt then completed second sit<>stand w/ Mod A and cues, then ambulated to bathroom. Mod cues and Min A for lowering onto toilet. Nursing provided pericare and checked on bruise on pts bottom, while RESIDENT CARE ASSISTANT provided Min A and cues for quad activation and assistance w/ brief. Pt then ambulated back to chair and sat down, Min A min cues. Pt left in chair w/ all needs in reach and OT in room. Gait Assessment Gait Gait Assistance Required: Minimum Assistance,1 Person Assist Distance (Feet) 20 Able to Maintain Weight Bearing Status Yes During Gait Assistive Devices Assistive Device Front Wheeled Walker Gait Deviations General Gait Pattern Decreased Stride Length, Decreased Feet Clearance, Flexed Trunk,Step-to Gait Factors Limiting Gait Function Factors Limiting Gait Function Decreased Strength,Poor Safety Awareness Comments Gait Comments Pt was able to ambulate from chair to toilet and back to chair w/ Min A and FWW w/ cues for quad activation. Pt needed Min A and cues for FWW when turning to approach toilet and chair. Pt has external rotation of R foot when standing and ambulating and decreased foot clearance. PT-Balance Assessment Sitting Balance and Reactions Static Sitting Balance Ability Fair Dynamic Sitting Balance Ability Fair Standing Balance and Reactions Static Standing Balance Ability Poor Dynamic Standing Balance Ability Poor Device Used FWW Comments Other Balance Tests/Deviations/Treatment +2 asst for several sit to : stand trials in order to see if pt can maintain standing balance. Asst to don her underwear, put around ankles in sitting and then assisted to pull up in standing. +2 heavy asst to transfer to the w/c after she got up from toilet--pt's right leg gives way and she cannot pivot well on the left leg to the chair M5 PT-IP Objective Assessments Start: 12/06/19 12:35 Freq: Status: Active Protocol: Document 12/06/19 12:36 MB (Rec: 12/06/19 13:05 MB [id number]) Orientation Orientation/Cognition Level of Alertness Alert Orientation Name,Age,Birthday,Month,Date, Year,Day of Week,Place, Situation Language Function Ability No Deficits Noted Safety Awareness Decreased Safety Awareness Comments Pt tends to reach for grab bar , does not reach back for bed to sit despite multiple cues to do so. Gross Range of Motion Upper Extremity ROM Impairments Decreased end-range B shoulder flexion, mildly greater on the right Lower Extremity ROM Impairments Functionally drags right foot with gait. 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 Comments Strength Comments Right LE weakness with gait, once getting up from toilet, her right leg gives way and she requires heavy +2 asst for transfer to w/c Sensation Assessment Sensation Proprioception (Position) Impaired Comments Sensation Comments Impaired proprioception right toes M6 PT-IP Treatment Start: 12/06/19 12:35 Freq: Status: Active Protocol: Document 12/07/19 15:35 KS (Rec: 12/07/19 16:45 KS [id number]) Physical Therapy Treatment Exercises Exercises Ankle Pumps,Heel Slides Education Education Provided Weight Bearing Status,Safety Other Treatments Other Treatment Performed Long arc quads Seated marching M7 PT-IP Assessment and Plan Start: 12/06/19 12:35 Freq: Status: Active Protocol: Document 12/07/19 15:35 KS (Rec: 12/07/19 16:45 KS [id number]) PT Summary Assessment and Plan Potential Rehabilitation Potential Fair Summary Impairments Pain,ROM,Strength,Balance, Sensation,Bed Mobility, Transfers,Gait,Activity Tolerance Assessment Summary Pt reported feeling better today and was able to complete 1X10 of ankle pumps, heel slides, LAQs, and seated marching. Pt was CGA for scooting to edge of chair, and Mod A x1 for sit<>stand w/ FWW and cues to p/u from chair . Pt then sat back down Min A and cues to reach back/slowly lower. Pt requested to use bathroom, nursing called to follow w/ chair while pt ambulated w/ FWW. Sit<>stand Mod A, Min A for ambulation w/ FWW and Min A for FWW management when approaching toilet and chair. Min A for sitting on toilet, and Mod A for sit<>stand from toilet. Nursing present to provide pericare and check on pts bruise. Min A for stand<>sit back in chair. Goals Bed Mobility Goal Independent Transfer Goal Independent Gait Goal Contact Guard Assistance Gait Distance 50 with RW Frequency of Treatment Frequency Of Treatment Twice a Day Treatment Plan Physical Therapy Treatment Plan Bed Mobility Training,Transfer Training,Gait Training, Therapeutic Exercise,Balance Retraining,Discharge Planning, Hot or Cold Pack,Neuromuscular Re-ed,Coordination Retraining Recommendations To Nursing Amount of Assist Needed 2 Person Assist Discharge Recommendations Other Discharge Recommendations 24 hour asst and PT at d/c, PT recommends Inpatient Rehabilitation disposition location for up to 3 hours of therapy (divided up) a day. Pt was able to ambulate with walker and has support at home RESIDENT CARE ASSISTANT
--- NOTE | 2019-12-07 16:43 | OT.IP.EVAL ---
Current Diagnoses Cerebral infarction due to embolism of unspecified cerebral artery (12/06/19) Past Medical History (Last Reviewed 12/06/19 @ 17:54 by Gonzalo Leo MD) Abnormal EKG (Acute) Carpal tunnel syndrome (Resolved ~2005) Chronic renal failure, stage 2 (mild) (Chronic) Colon polyps (Resolved 02/2007) Degenerative arthritis of left knee (Acute) Diabetes (Chronic Unknown) Fatigue (Acute) Hyperlipemia (Chronic Unknown) Hypertension (Chronic Unknown) Leg swelling (Acute) Low back pain (Chronic ~2015) Osteoarthritis (Chronic Unknown) Unilateral primary osteoarthritis, left knee (Acute) Surgical History (Last Reviewed 12/06/19 @ 17:54 by Gonzalo Leo MD) History of knee replacement S/P total abdominal hysterectomy and bilateral salpingo-oophorectomy Status post delivery Occupational Therapy Inpatient Evaluation/Re-Eval M1 PT/OT-IP Prior Functional Status Start: 12/06/19 12:35 Freq: Status: Active Protocol: Document 12/07/19 16:43 PJM (Rec: 12/07/19 17:14 PJM [id number]) Medical Review Prior Functional Status Medical History Reviewed Yes Diet/Fluid Consistency Regular Communication WNL Mobility and Gait Pt using FFW for gait due to significant L knee pain. Pt scheduled for L TKA which was recently cancelled due to hypertension. L TKA was rescheduled for 12/27/19 but may be on hold now due to pt's stroke. Pt reports being very sedentary at home due to L knee pain. Activities of Daily Living and IADL's Pt independent with eating, grooming, upper body dressing, toileting (uses Poise pads) and standing shower. 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 Pt states she drives when feeling well. Pt sleeps in recliner. Social History Household Members spouse Living Arrangements House Number of Floors (Floors) One Floor Number of Stairs To Enter/Railing? 4 stairs to enter with B rails Home Environment Standard Height Toilet,Walk in Shower,Built-In Shower Seat Home Equipment Raised Toilet Seat Without Armrests,Grab Bars Near Toilet Employment Status Retired Additional Social History Comment Pt and both retired. M2 OT-IP Current Condition Start: 12/07/19 16:49 Freq: Status: Active Protocol: Document 12/07/19 16:43 PJM (Rec: 12/07/19 17:14 PJM [id number]) Occupational Therapy Current Condition Current Condition Evaluation Date 12/07/19 Treatment Diagnosis decreased self care, mobility with Dx: stroke, R frontal, L periventricular area and L fleming radiata Diagnosis Onset Date 12/06/19 Post Operative Precautions Other Precautions RLE weakness, painful L knee, fall risk M3 OT- IP Subjective and Pain Start: 12/07/19 16:49 Freq: Status: Active Protocol: Document 12/07/19 16:43 PJM (Rec: 12/07/19 17:14 PJM [id number]) OT- Subjective Occupational Therapy Visit Type Type Initial Evaluation Visit Start Time 16:14 Visit Stop Time 16:43 Total Visit Minutes 29 Occupational Therapy Visit Comments Patient Comments I want to go to intensive rehab' I think I can do it. Patient/Caregiver Goals to get strong enough to have L TKA surgery, be able to walk without pain OT Pain Assessment Pain When Pain Assessed At Rest Pain Present Pain Present Denied Pain M4 OT- IP ADL's Start: 12/07/19 16:49 Freq: Status: Active Protocol: Document 12/07/19 16:43 PJM (Rec: 12/07/19 17:14 PJM [id number]) OT [id number] General Evaluation Self-Feeding Ability Standby Assistance Comments OT Self-Feeding Comments Pt reports feeding self with R hand with decreased coordination and slower speed than usual. OT ADL-Grooming General Evaluation Grooming Ability Standby Assistance Areas Needing Assistance Retrieving/Set-up of Grooming Items,Face Washing Comments OT Grooming Comments seated in chair OT ADL-Oral Care Comments Oral Care Comments did not occur this session OT ADL-Dressing General Eval Upper Body Dressing Ability Standby Assistance Lower Body Dressing Ability Maximum Assistance Areas Needing Assistance Underpants/Brief Comments OT Dressing Comments Began education er: lower body dressing equipment options to increased independence with socks and pants. OT ADL-Toileting Comments OT Toileting Comments did not occur this session OT ADL-Bathing Comments OT Bathing Comments to be assessed as mobility improves M5 OT- IP IADL's Start: 12/07/19 16:49 Freq: Status: Active Protocol: Document 12/07/19 16:43 PJM (Rec: 12/07/19 17:14 PJM [id number]) OT-Instrumental Activities of Daily Living Deficits IADL Deficits Identified Deficits Home Safety Awareness Awareness of Need for Assistance at Home Good Awareness Medication Management Medication Management No Deficits Identified Money Management Money Management No Deficits Identified Meal Preparation Meal Preparation Caregiver Provides Assist Meal Preparation Comments has been doing all IADLS due to pt's L knee pain Tape Stringer Tape Stringer Caregiver Provides Assist Tape Stringer Comments has been doing all IADLS due to pt's L knee pain Driving Driving Caregiver Provides Assist Driving Comments to provide assist until pt able; recommend no driving at present due to RLE weakness M6 OT- IP Functional Cognition Start: 12/07/19 16:49 Freq: Status: Active Protocol: Document 12/07/19 16:43 PJM (Rec: 12/07/19 17:14 PJM [id number]) Cognitive Factors Limiting Selfcare Function Cognitive Ability Level of Alertness Alert Patient Orientation Name,Age,Birthday,Month,Date, Year,Day of Week,Place, Situation Attention Span Ability Capable of Focused Attention, Capable of Sustained Attention Ability to Follow Commands Able to Follow One Step Commands Problem Solving Ability Needs Assist to Identify Solutions OT- Vision and Hearing OT- Hearing Assessment OT- Hearing Assessment WFL OT- Vision Assessment Visual Acuity Glasses All The Time Visual Attentiveness WFL Occular Pursuits WFL Visual Ramirez WFL Diplopia Absent Visual Spacial Neglect Not Applicable Vision Assessment Comments No new vision deficits identified. M7 OT- IP Mobility and Balance Start: 12/07/19 16:49 Freq: Status: Active Protocol: Document 12/07/19 16:43 PJM (Rec: 12/07/19 17:14 PJM [id number]) OT-Transfer Assessment Comments Mobility Comments Pt seen seated in chair this session; just finished with P. T. See P.T. notes for details. OT- Gait Assessment Comments Gait Ability Comments See P.T. notes for details. OT- Balance Assessment Sitting Balance and Reactions Static Sitting Balance Ability Good Dynamic Sitting Balance Ability Good Comments Other Balance Tests/Deviations/Treatment See P.T. notes for further : details. M8 OT- IP Objective Assessments Start: 12/07/19 16:49 Freq: Status: Active Protocol: Document 12/07/19 16:43 PJM (Rec: 12/07/19 17:14 PJM [id number]) OT Gross Range of Motion Upper Extremity Range of Motion Assessment Within Functional Limits ROM Impairments RUE lag noted during B AROM. B scaption limited to about 100 degrees by arthritis and stiffness. Distal AROM WFL with RUE movements slower than L. OT Strength Upper Extremity Strength Assessment Right Impaired Shoulder R 4/5 flex L 5/5 Elbow R 4/5 flex and 4/5 ext L 5/5 Forearm R 4-/5 L 5/5 Wrist R 4/5 L 5/5 Hand R 4/5 L 4+/5 Hand [employer] Instructor Strength Hand Dominance Right OT- Coordination Assessment Upper Extremity Finger to Nose Test Right UE Impaired Finger Tapping Test Right UE Impaired Comments Coordination Comments RUE gross and fine RUSSEL's slower than L. Pt reports decreased R handwriting legibility since stroke. OT-Muscle Tone Assessment Muscle Tone WNL Yes OT Sensation Assessment Comments Summary Comments BUE lt touch and proprioception intact. Edema Edema Present Edema Comments B feet and ankles M9 OT- IP Assessment and Plan Start: 12/07/19 16:49 Freq: Status: Active Protocol: Document 12/07/19 16:43 PJM (Rec: 12/07/19 17:14 PJM [id number]) OT Summary Assessment and Plan Potential Rehabilitation Potential Good Analytic Complexity at Evaluation Low Summary OT Impairments Strength,Balance,Coordination, Functional Mobility,Grooming, Dressing,Toileting,Bathing, Toilet Transfers,Shower Transfers,Activity Tolerance Assessment Summary Low complexity OT assessment completed on this 74 yr old woman admitted with RLE weakness with fall at home. MRI showed multiple small strokes in R frontal, L fleming radiata and L periventricular areas. Pt has comorbidity of severe L knee arthritis with L TKA recently postponed due to uncontrolled HTN. No new deficits identified in vision or cognition. Pt has mild RUE weakness and gross and fine motor coordination deficits in her dominant RUE/ hand with mildly impaired self feeding and handwriting noted. Pt also presents with significant performance deficits in all functional mobility/transfers, standing grooming, lower body dressing, bathing and toileting. Recommend IPR at d/c as pt is well below her baseline level of function and she is highly motivated to regain independence as she would like to pursue a LTKA when medically stable. Goals Self-Feeding Goal Independent Grooming Goal Standby Assistance Dressing Goal Standby Assistance,Long Handled Shoe Horn,Geophysical Prospecting Surveyor,Sock Aid Toileting Goal Standby Assistance Bathing Goal Minimal Assistance,Grab Bars, Hand Held Shower Sprayer,Long Handled Sponge or [place] Toilet Transfer Goal Standby Assistance,Raised Toilet Seat,Grab Bars Shower Transfer Goal Contact Guard Assistance,Walk- in Shower,Shower Chair,Grab Bars Patient/Caregiver Education Goal Demonstrate Energy Conservation and Pacing OT-Other Goals Grooming to be done standing at sink with good safety awareness and no LOB. Days to Meet Goals 7 Frequency of Treatment Frequency Of Treatment Once a Day Treatment Plan OT Treatment Plan ADL Training,Functional Mobility,Patient/Family Education,Discharge Planning Discharge Recommendations OT Discharge Recommendations Acute Rehab Home Equipment Needs to be determined pending progress Transportation Needs at Discharge Wheelchair/Cabulance
--- NOTE | 2019-12-07 19:24 | PC.NURSE ---
Maria Del Rosario shift note: Patient sitting up in chair upon arrival to shift, awake, alert, and calm. Worked with PT and OT, Dr. Jorgensen at bedside this shift. Ambulated a few steps and transferred to bed with FWW, states feels stronger than admit day. Steady gait noted on short distance ambulated, requires frequent cues. Strength appear equal bilaterally, 4+. High fall risk precautions maintained, call light within reach.
[2019-12-07] MEDS: MELATONIN 3 MG TABLET 6 MG PO (20:30)
[2019-12-08] VITALS (9 sets, daily range): BP systolic 128–148; BP diastolic 61–84; PULSE 61–87; RESP 14–18; TEMP 36–36.7; O2SAT 93–98
[2019-12-08] MEDS: TRAMADOL 50 MG TABLET PO ×4 (00:51→16:46)
[2019-12-08 05:57] LABS: Blood Urea Nitrogen 37 mg/dL (7-17); Calcium 9.4 mg/dL (8.4-10.2); Carbon Dioxide 27 mmol/L (22-32); Chloride 104 mmol/L (98-107); Estimated Glomerular Filt Rate 54.1 mL/min (>60); Glucose 96 mg/dL (80-110); HEMOLYSIS < 15 (0-50); Potassium 3.8 mmol/L (3.4-5.1); Sodium 138 mmol/L (137-145)
[2019-12-08] MEDS: ASPIRIN 325 MG TABLET PO (08:15)
[2019-12-08] MEDS: estradioL 0.5 MG TABLET PO (08:15)
[2019-12-08] MEDS: DICLOFENAC MISOPROSTOL 1 EACH PO (08:15)
[2019-12-08] MEDS: MONTELUKAST 10 MG TABLET PO (08:15)
[2019-12-08] MEDS: AMLODIPINE 5 MG TABLET 10 MG PO (08:16)
[2019-12-08] MEDS: lisinopriL 20 MG TABLET PO ×2 (08:16→20:56)
[2019-12-08] MEDS: SODIUM CHLORIDE 0.9% FLUSH 10 ML IV ×2 (08:17→20:57)
[2019-12-08] MEDS: METFORMIN HCL 500 MG TABLET 1000 MG PO ×2 (08:17→16:46)
[2019-12-08] MEDS: CHOLECALCIFEROL (VITAMIN D3) 1,000 UNIT TABLET 1000 UNIT PO (08:17)
[2019-12-08] MEDS: ATORVASTATIN 20 MG TABLET 40 MG PO (08:41)
--- NOTE | 2019-12-08 09:25 | CM.DANOTE ---
Addendum entered by Vita Riley LPN 12/08/19 15:57: As had not heard from Daniel did give referral to [facility] in case of need. She did review. Stated that their medical directer was reviewing and she would start the auth. She cautioned that this process typically takes longer than a snf process and it goes to a higher level of review in the insurance arena as the financial cost is so much greater than snf cost. In this case is appropriate to focus on INPT as this is recommended setting for pt and her recovery.. [facility] did just call back now to stay she contacted [facility] and was told that the [place] request for INPT authorization was already in place. DCP team to follow...P: Prov INPT rehab when auth in place and stable for same. Will update pt and her . Addendum entered by Vita Riley LPN 12/08/19 10:42: Will not start a referral yet to /[facility] as the insurance company does not work 2 referrals at once. Addendum entered by Vita Riley LPN 12/08/19 10:37: Have spoken now with Daniel/admissions: Prov INPT rehab: cell [phone]: he anticipates a bed and will start the insurance auth request today. As [facility] is not not in office will fax the packet to him so as not to delay...am including these DCP notes. P: INPT rehab: pending insurance auth for same: obtained by the facility. Addendum entered by Vita Riley LPN 12/08/19 10:16: Note interrupted by Team Rounds: to continue: Discussed the managed medicare process: Payer: [facility] and how this may impact pt's choices for rehab. [place] states he is willing to consider private pay if he must. They do not want to consider the snf setting at this time. Therapy team is recommending [employer] HELPER see pt for a more indept cognitive assessment. Order is obtained. Admission status: INPT: confirmed by MARTINEZ Martinez. PCP: Dr. Jorgensen P: at this point: working on a d/c to INPT Rehab setting: DCP team will follow closely. [facility] is preparing a referral packet to fax to the facililty choices. Original Note: Discharge Planning/Care Management DCP: assessment: case received yesterday, EMR reviewed and including PT/OT notes. At that time POC was newly in process with PT.OT/[facility]R[employer] MIXER HELPER pending. Caseload triage decision made to see pt this morning to continue the assessment process. Met now with pt and her [place]: cell: [phone]. Introduced self and role. Pt was working with OT Mary. Both pt and [place] confirm they are aware of the recommendation by PT/OT for Acute INPT rehab: Choice list: discussed: decision: [facility] Acute Physical rehab unit is first choice. Their daughter lives a few minutes away from this facility. Second choice: [facility] [place] [facility]: Advanced directive, confirm from FAMILY Start: 12/06/19 15:30 Freq: Q24H Status: Complete Protocol: Document 12/06/19 18:57 AKP (Rec: 12/06/19 18:57 AKP [id number]) Advance Directive, confirm on record Time 18:57 Person contacted [place] spouse Copy received No Document 12/07/19 09:56 CM (Rec: 12/07/19 10:03 CM [id number]) Advance Directive, confirm on record Time 18:57 Person contacted [place] spouse Copy received No Time 10:02 Person contacted Pt - Spouse brought in advanced directive copies and they were sent to [facility] Copy received Yes Advanced directive available on record Yes Document 12/08/19 09:00 CM (Rec: 12/08/19 09:10 CM [id number]) Advance Directive, confirm on record Time 18:57 Person contacted [place] spouse Copy received No Time 10:02 Person contacted Pt - Spouse brought in advanced directive copies and they were sent to [facility] Copy received Yes Advanced directive available on record Yes CM Discharge Assessment Start: 12/08/19 09:22 Freq: Status: Active Protocol: Document 12/08/19 09:22 ITV (Rec: 12/08/19 09:25 ITV [id number]) Discharge Planning Assessment Advance Directives? Yes History Provided By Patient,Family Member,Medical Record Prior Living Arrangements House Household Members spouse Type of transporation used prior to Drives own vehicle admit Independent with ADL's No: limited by L knee pain Is patient alert and oriented? Yes Comment Acute INPT Stroke rehab Comment will need authorization for this Discharge Plan Inpatient Rehab Unit Whiteboard Updated in Patient Room with Yes name and ext. 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
[2019-12-08] MEDS: BUDESONIDE 90mcg FLEXHALER (60 PUFF/DEVICE) INH ×2 (10:14→19:15)
--- NOTE | 2019-12-08 10:18 | OT.IP.TRT ---
Current Diagnoses Cerebral infarction due to embolism of unspecified cerebral artery (12/06/19) Occupational Therapy Treatment Note M2 OT-IP Current Condition Start: 12/07/19 16:49 Freq: Status: Active Protocol: Document 12/07/19 16:43 PJM (Rec: 12/07/19 17:14 PJM [id number]) Occupational Therapy Current Condition Current Condition Evaluation Date 12/07/19 Treatment Diagnosis decreased self care, mobility with Dx: stroke, R frontal, L periventricular Diagnosis Onset Date 12/06/19 Post Operative Precautions Other Precautions RLE weakness, painful L knee, fall risk M3 OT- IP Subjective and Pain Start: 12/07/19 16:49 Freq: Status: Active Protocol: Document 12/08/19 13:15 [facility] (Rec: 12/08/19 13:46 [facility] [id number]) OT- Subjective Occupational Therapy Visit Type Type Treatment Note Visit Start Time 08:55 Visit Stop Time 10:18 Total Visit Minutes 83 Occupational Therapy Visit Comments Patient Comments Pt just finishing breakfast and present in the room . Patient/Caregiver Goals Pt wanting to go to acute rehab and motivated to get better. OT Pain Assessment Pain When Pain Assessed At Rest Pain Present Pain Present Denied Pain M4 OT- IP ADL's Start: 12/07/19 16:49 Freq: Status: Active Protocol: Document 12/08/19 13:15 [facility] (Rec: 12/08/19 13:46 [facility] [id number]) OT ADL-Grooming General Evaluation Grooming Ability Standby Assistance Comments OT Grooming Comments Pt able to stand at the sink with FWW. Pt needing to sit in between as tiring and right leg buckling, but needing cue to sit down. OT ADL-Oral Care General Eval Oral Care Ability Standby Assistance OT ADL-Dressing General Eval Lower Body Dressing Ability Standby Assistance Areas Needing Assistance Socks Comments OT Dressing Comments After education and cues , pt able to use vessel master and sock aid to don/doff socks. Pt needing vc to plan items out and to have vessel master close buy so able to use it when needed. OT ADL-Toileting Comments OT Toileting Comments did not occur this session OT ADL-Bathing Comments OT Bathing Comments to be assessed as mobility improves M5 OT- IP IADL's Start: 12/07/19 16:49 Freq: Status: Active Protocol: Document 12/07/19 16:43 PJM (Rec: 12/07/19 17:14 PJM [id number]) OT-Instrumental Activities of Daily Living Deficits IADL Deficits Identified Deficits Home Safety Awareness Awareness of Need for Assistance at Home Good Awareness Medication Management Medication Management No Deficits Identified Money Management Money Management No Deficits Identified Meal Preparation Meal Preparation Caregiver Provides Assist Meal Preparation Comments has been doing all IADLS due to pt's L knee pain Public Relations Senior Associate Public Relations Senior Associate Caregiver Provides Assist Public Relations Senior Associate Comments has been doing all IADLS due to pt's L knee pain Driving Driving Caregiver Provides Assist Driving Comments to provide assist until pt able; recommend no driving at present due to RLE weakness M6 OT- IP Functional Cognition Start: 12/07/19 16:49 Freq: Status: Active Protocol: Document 12/08/19 13:15 [facility] (Rec: 12/08/19 13:46 [facility] [id number]) Cognitive Factors Limiting Selfcare Function Cognitive Ability Level of Alertness Alert Patient Orientation Name,Age,Birthday,Month,Date, Year,Day of Week,Place, Situation Attention Span Ability Capable of Focused Attention, Capable of Sustained Attention Ability to Follow Commands Able to Follow One Step Commands Memory Description Short Term Impaired Safety Awareness Underestimates Need for Assistance Problem Solving Ability Needs Assist to Identify Solutions Cognitive Tests ACL Pt scored 5.2 out of 6.0 which implies pt may need weekly checks to monitor the safety, assist with finances and manage social conflicts. However from physical stand point, pt will need someone there 31/05 as pt's RLE lino and not aware in addition has decreased safety awareness for FWW use. Cognitive Comments Cognitive Assessment Comments Pt noted having some decreased safety awareness and reminders to push up from the recliner and reach back with her hands when sitting. M7 OT- IP Mobility and Balance Start: 12/07/19 16:49 Freq: Status: Active Protocol: Document 12/08/19 13:15 [facility] (Rec: 12/08/19 13:46 [facility] [id number]) OT-Transfer Assessment Sit to and From Stand Sit to and from Stand Minimal Assistance Transfers Transfer Ability Minimal Assistance Technique Transfer Destination Chair Devices Transfer Assistive Devices Gait Belt,Front Wheeled Walker Comments Mobility Comments Pt reminders to scoot forwards , push up from the recliner, vc to straigthen her right leg and focus on it. Pt having difficulty multi-tasking trying to brush her teeth while standing. OT- Balance Assessment Sitting Balance and Reactions Static Sitting Balance Ability Normal Dynamic Sitting Balance Ability Good Standing Balance and Reactions Static Standing Balance Ability Fair M8 OT- IP Objective Assessments Start: 12/07/19 16:49 Freq: Status: Active Protocol: Document 12/07/19 16:43 PJM (Rec: 12/07/19 17:14 PJM [id number]) OT Gross Range of Motion Upper Extremity Range of Motion Assessment Within Functional Limits ROM Impairments RUE lag noted during B AROM. B scaption limited to about 100 degrees by arthritis and stiffness. Distal AROM WFL with RUE movements slower than L. OT Strength Upper Extremity Strength Assessment Right Impaired Shoulder R 4/5 flex L 5/5 Elbow R 4/5 flex and 4/5 ext L 5/5 Forearm R 4-/5 L 5/5 Wrist R 4/5 L 5/5 Hand R 4/5 L 4+/5 Hand Oxygen Therapy Technician Strength Hand Dominance Right OT- Coordination Assessment Upper Extremity Finger to Nose Test Right UE Impaired Finger Tapping Test Right UE Impaired Comments Coordination Comments RUE gross and fine RUSSEL's slower than L. Pt reports decreased R handwriting legibility since stroke. 9 hole peg right hand 35 sec. Left hand 32.5 sec. OT-Muscle Tone Assessment Muscle Tone WNL Yes OT Sensation Assessment Comments Summary Comments BUE lt touch and proprioception intact. Edema Edema Present Edema Comments B feet and ankles M9 OT- IP Assessment and Plan Start: 12/07/19 16:49 Freq: Status: Active Protocol: Document 12/08/19 13:15 [facility] (Rec: 12/08/19 13:46 [facility] [id number]) OT Summary Assessment and Plan Potential Rehabilitation Potential Good Analytic Complexity at Evaluation Low Summary OT Impairments Strength,Balance,Coordination, Functional Mobility,Grooming, Dressing,Toileting,Bathing, Toilet Transfers,Shower Transfers,Activity Tolerance Progress Towards Goals Progressing Toward Goals Assessment Summary Pt very motivated to get better and able to be educated on FMS, handwriting, and activities to do on her own. Pt able to bead picker coins and do in hand manipulation. Pt would benefit form acute rehab to work on increasing speed, smoothness of BUE movements and having difficulty with multi-tasking of BUE and BLE and for for short term memory . Goals Self-Feeding Goal Independent Grooming Goal Standby Assistance Dressing Goal Standby Assistance,Long Handled Shoe Horn,Cable Respooler,Sock Aid Toileting Goal Standby Assistance Bathing Goal Minimal Assistance,Grab Bars, Hand Held Shower Sprayer,Long Handled Sponge or [place] Toilet Transfer Goal Standby Assistance,Raised Toilet Seat,Grab Bars Shower Transfer Goal Contact Guard Assistance,Walk- in Shower,Shower Chair,Grab Bars Patient/Caregiver Education Goal Demonstrate Energy Conservation and Pacing OT-Other Goals Shower Days to Meet Goals 6 Frequency of Treatment Frequency Of Treatment Once a Day Treatment Plan OT Treatment Plan ADL Training,Functional Mobility,Patient/Family Education,Discharge Planning Discharge Recommendations OT Discharge Recommendations Acute Rehab Transportation Needs at Discharge Private Vehicle
[2019-12-08] MEDS: ACETAMINOPHEN 325 MG TABLET 650 MG PO (11:31)
--- NOTE | 2019-12-08 11:47 | PT.IPTN ---
Current Diagnoses Cerebral infarction due to embolism of unspecified cerebral artery (12/06/19) Physical Therapy Treatment Note M2 PT-IP Current Condition Start: 12/06/19 12:35 Freq: Status: Active Protocol: Document 12/06/19 12:36 MB (Rec: 12/06/19 13:05 MB [id number]) Physical Therapy Current Condition Current Condition Evaluation Date 12/06/19 Treatment Diagnosis R sided weakness, greater in right leg Onset Date 12/06/2019 M3 PT-IP Subjective Start: 12/06/19 12:35 Freq: Status: Active Protocol: Document 12/08/19 11:02 KS (Rec: 12/08/19 12:53 KS [email or web address]) Subjective Physical Therapy Visit Type Type Treatment Note Visit Start Time 11:02 Visit Stop Time 11:47 Total Visit Minutes 45 Notes Nursing present after toileting to measure void and change sheets. Number of LEVELER Visits 1 Physical Therapy Visit Comments Patient Comments Pt is willing to work w/ therapy. Therapy Pain Assessment Pain When Pain Assessed At Rest Pain Present Pain Present Denied Pain M4 PT-IP Mobility and Gait Start: 12/06/19 12:35 Freq: Status: Active Protocol: Document 12/08/19 11:02 KS (Rec: 12/08/19 12:53 KS [email or web address]) PT-Bed Mobility Assessment Sit to Supine Sit to Supine Minimal Assistance,1 Person Assistance Scooting Scooting to Edge of Bed Contact Guard Assistance PT-Transfer Assessment Sit to and From Stand Sit to and from Stand Moderate Assistance,1 Person Assistance Equipment Transfer Assistive Device Gait Belt,Front Wheeled Walker Transfers Transfer Technique Pt ambulated w/ FWW. Transfer Ability Level of Assist 1 Person Assistance Comments Mobility Comments Pt was sitting in chair upon arrival from therapy and noted that she needed to use the bathroom. Pt performed LE strengthening exercises, with cues for quad activation. CGA for scooting to edge of chair, Mod A and cues for sit<>stand w/ FWW. Pt then ambulated around room ~ 30 ft and then to toilet. Min A and cues to use hand rail to lower onto toilet. Mod A for sit<>stand from toilet, pt then ambulated to bed. Required cues for for reaching back and lowering down, pt still lacks strength to lower down slowly when sitting. Pt sat EOB for 5 min while nrusing administered medication. Min A for LE guidance back into bed/sit<> sup. Cues for bridging in bed for shifting hips. Pt left in bed w/ all needs in reach. Gait Assessment Gait Gait Assistance Required: Minimum Assistance,1 Person Assist Distance (Feet) 30 Able to Maintain Weight Bearing Status Yes During Gait Assistive Devices Assistive Device Front Wheeled Walker Gait Deviations General Gait Pattern Decreased Stride Length, Decreased Feet Clearance, Flexed Trunk,Step-to Gait Factors Limiting Gait Function Factors Limiting Gait Function Decreased Strength,Poor Safety Awareness Comments Gait Comments Pt was able to ambulate further distance today w/ FWW and Min A. Required cues for R quad activation to avoid buckling, and upright posture. Pt was able to manage FWW better today, only need Min A and cues for turning of FWW when approaching toilet. Pt continues to have external rotation of R foot and slow pace due to weakness. PT-Balance Assessment Sitting Balance and Reactions Static Sitting Balance Ability Fair Dynamic Sitting Balance Ability Fair Standing Balance and Reactions Static Standing Balance Ability Poor Dynamic Standing Balance Ability Poor Device Used FWW M5 PT-IP Objective Assessments Start: 12/06/19 12:35 Freq: Status: Active Protocol: Document 12/06/19 12:36 MB (Rec: 12/06/19 13:05 MB [id number]) Orientation Orientation/Cognition Level of Alertness Alert Orientation Name,Age,Birthday,Month,Date, Year,Day of Week,Place, Situation Language Function Ability No Deficits Noted Safety Awareness Decreased Safety Awareness Comments Pt tends to reach for grab bar , does not reach back for bed to sit despite multiple cues to do so. Gross Range of Motion Upper Extremity ROM Impairments Decreased end-range B shoulder flexion, mildly greater on the right Lower Extremity ROM Impairments Functionally drags right foot with gait. 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 Comments Strength Comments Right LE weakness with gait, once getting up from toilet, her right leg gives way and she requires heavy +2 asst for transfer to w/c Sensation Assessment Sensation Proprioception (Position) Impaired Comments Sensation Comments Impaired proprioception right toes M6 PT-IP Treatment Start: 12/06/19 12:35 Freq: Status: Active Protocol: Document 12/08/19 11:02 KS (Rec: 12/08/19 12:53 KS [email or web address]) Physical Therapy Treatment Exercises Exercises Ankle Pumps,Gluteal Sets,Quad Sets,Seated Knee Flexion/ Extension Education Education Provided Weight Bearing Status,Safety Other Treatments Other Treatment Performed seated marching M7 PT-IP Assessment and Plan Start: 12/06/19 12:35 Freq: Status: Active Protocol: Document 12/08/19 11:02 KS (Rec: 12/08/19 12:53 KS [email or web address]) PT Summary Assessment and Plan Potential Rehabilitation Potential Fair Summary Impairments Pain,ROM,Strength,Balance, Sensation,Bed Mobility, Transfers,Gait,Activity Tolerance Assessment Summary Pt was able to complete 1x10 ankle pumps, quad sets, glute sets, seated marching and knee extension while sitting in chair. After LE strengthening, pt was CGA for scooting to edge of chair and Mod A x1 for sit<>stand w/ FWW. Pt then ambulated ~30 feet around room and to toilet. Nursing present to measure void and change sheets. Pt was Min A and cues for stand<>sit EOB. Pt sat 5 min EOB while nursing administered medicine. Min A for sit<>sup in bed for LE guidance. Cues for bridging/ shifting of hips to be straight in bed. Goals Bed Mobility Goal Independent Transfer Goal Independent Gait Goal Contact Guard Assistance Gait Distance 50 with RW Frequency of Treatment Frequency Of Treatment Twice a Day Treatment Plan Physical Therapy Treatment Plan Bed Mobility Training,Transfer Training,Gait Training, Therapeutic Exercise,Balance Retraining,Discharge Planning, Hot or Cold Pack,Neuromuscular Re-ed,Coordination Retraining Recommendations To Nursing Amount of Assist Needed 2 Person Assist Discharge Recommendations Other Discharge Recommendations 24 hour asst and PT at d/c, PT recommends Inpatient Rehabilitation disposition location for up to 3 hours of therapy (divided up) a day. Pt was able to ambulate with walker and has support at home LEVELER
[2019-12-08] MEDS: INSULIN ASPART 100 UNIT/ML INSULN PEN SUBCUT ×2 (12:10→16:49)
--- NOTE | 2019-12-08 14:06 | PT.IPTN ---
Current Diagnoses Cerebral infarction due to embolism of unspecified cerebral artery (12/06/19) Physical Therapy Treatment Note M2 PT-IP Current Condition Start: 12/06/19 12:35 Freq: Status: Active Protocol: Document 12/06/19 12:36 MB (Rec: 12/06/19 13:05 MB [id number]) Physical Therapy Current Condition Current Condition Evaluation Date 12/06/19 Treatment Diagnosis R sided weakness, greater in right leg Onset Date 12/06/2019 M3 PT-IP Subjective Start: 12/06/19 12:35 Freq: Status: Active Protocol: Document 12/08/19 13:40 KS (Rec: 12/08/19 14:35 KS [email or web address]) Subjective Physical Therapy Visit Type Type Treatment Note Visit Start Time 13:40 Visit Stop Time 14:06 Total Visit Minutes 26 Notes Nursing present after toileting to measure void and assist w/ pt brief and re- positioning. Number of BOOK SOLICITOR Visits 2 Physical Therapy Visit Comments Patient Comments Pt is willing to work w/ therapy. Therapy Pain Assessment Pain When Pain Assessed After Treatment Pain Present Pain Present Denied Pain M4 PT-IP Mobility and Gait Start: 12/06/19 12:35 Freq: Status: Active Protocol: Document 12/08/19 13:40 KS (Rec: 12/08/19 14:35 KS [email or web address]) PT-Bed Mobility Assessment Rolling Type of Rolling Log Rolling Level of Assist Minimal Assistance,1 Person Assistance Sit to Supine Sit to Supine Minimal Assistance,1 Person Assistance Scooting Scooting to Edge of Bed Contact Guard Assistance PT-Transfer Assessment Sit to and From Stand Sit to and from Stand Minimal Assistance,1 Person Assistance,Use of Upper Extremities Equipment Transfer Assistive Device Gait Belt,Front Wheeled Walker Transfers Transfer Technique Pt ambulated w/ FWW. Transfer Ability Level of Assist 1 Person Assistance Comments Mobility Comments Pt was in bed upon arrival and was willing to ambulate with therapy. Min A and cues to walk legs off of bed for sup<> sit. CGA for scooting EOB. Pts BP assessed while sitting EOB : 150/72 VT:90. Min A for sit< >stand w/ cues to push up from bed required. Pt then ambulated out to hallway and to bathroom. Min A and cues to lower slowly for stand<>sit<> stand from toilet, Pt able to don own briefs while standing and bearing weight through L UE on FWW. Min A for stand<> sit EOB, but lacks eccentric control when sitting. Min A x2 and cues sit<>sup for LE guidance back into bed due to pt fatigue. Pt able to complete bridge on her own to shift hips in bed, but required Min A for moving shoulders. Pt left in bed w/ all needs in reach. Gait Assessment Gait Gait Assistance Required: Minimum Assistance,1 Person Assist Distance (Feet) 35 Able to Maintain Weight Bearing Status Yes During Gait Assistive Devices Assistive Device Front Wheeled Walker Gait Deviations General Gait Pattern Decreased Stride Length, Decreased Feet Clearance, Flexed Trunk,Step-to Gait Factors Limiting Gait Function Factors Limiting Gait Function Decreased Strength,Poor Safety Awareness Comments Gait Comments Pt ambulated ~35 ft w/ FWW from bed out to hallway and then to bathroom and back to bed. Pt has decreased foot clearance, stride length and slow pace due to weakness and requires cues for quad activation to avoid knee buckling. Pt states that she feels fatigued while approaching bathroom. Additional cues for upright posture, staying inside FWW, and avoidance of R LE external rotation. PT-Balance Assessment Sitting Balance and Reactions Static Sitting Balance Ability Fair Dynamic Sitting Balance Ability Fair Standing Balance and Reactions Static Standing Balance Ability Poor Dynamic Standing Balance Ability Poor Device Used FWW M5 PT-IP Objective Assessments Start: 12/06/19 12:35 Freq: Status: Active Protocol: Document 12/06/19 12:36 MB (Rec: 12/06/19 13:05 MB [id number]) Orientation Orientation/Cognition Level of Alertness Alert Orientation Name,Age,Birthday,Month,Date, Year,Day of Week,Place, Situation Language Function Ability No Deficits Noted Safety Awareness Decreased Safety Awareness Comments Pt tends to reach for grab bar , does not reach back for bed to sit despite multiple cues to do so. Gross Range of Motion Upper Extremity ROM Impairments Decreased end-range B shoulder flexion, mildly greater on the right Lower Extremity ROM Impairments Functionally drags right foot with gait. 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 Comments Strength Comments Right LE weakness with gait, once getting up from toilet, her right leg gives way and she requires heavy +2 asst for transfer to w/c Sensation Assessment Sensation Proprioception (Position) Impaired Comments Sensation Comments Impaired proprioception right toes M6 PT-IP Treatment Start: 12/06/19 12:35 Freq: Status: Active Protocol: Document 12/08/19 13:40 KS (Rec: 12/08/19 14:35 KS [email or web address]) Physical Therapy Treatment Education Education Provided Safety M7 PT-IP Assessment and Plan Start: 12/06/19 12:35 Freq: Status: Active Protocol: Document 12/08/19 13:40 KS (Rec: 12/08/19 14:35 KS [email or web address]) PT Summary Assessment and Plan Potential Rehabilitation Potential Fair Summary Impairments Pain,ROM,Strength,Balance, Sensation,Bed Mobility, Transfers,Gait,Activity Tolerance Assessment Summary Pt was Min A w/ cues for transfers and CGA for scooting to EOB. BP: 150/72 while sitting EOB and VT:90. Pt ambulated w/ FWW from bed to hallway w/ Min A and cues for quad activation, upright posture, FWW management, and avoidance of ER of R LE. Pt reported feelings of fatigue as approaching toilet. Min A and cues for stand<>sit in bed. Min A x2 for LE assistance back into bed d/t pt fatigue. Once in bed, pt was able to perform bridge to shift hips, but needed Min A to with lifting shoulders to become straight in bed. Pt will benefit from continued skilled rehab to further address strength, coordination, and safety awareness deficits. Goals Bed Mobility Goal Independent Transfer Goal Independent Gait Goal Contact Guard Assistance Gait Distance 50 with RW Frequency of Treatment Frequency Of Treatment Twice a Day Treatment Plan Physical Therapy Treatment Plan Bed Mobility Training,Transfer Training,Gait Training, Therapeutic Exercise,Balance Retraining,Discharge Planning, Hot or Cold Pack,Neuromuscular Re-ed,Coordination Retraining Recommendations To Nursing Amount of Assist Needed 2 Person Assist Discharge Recommendations Other Discharge Recommendations 24 hour asst and PT at d/c, PT recommends Inpatient Rehabilitation disposition location for up to 3 hours of therapy (divided up) a day. Pt was able to ambulate with walker and has support at home BOOK SOLICITOR
--- NOTE | 2019-12-08 14:31 | ST.IP.CME ---
Current Diagnoses Cerebral infarction due to embolism of unspecified cerebral artery (12/06/19) Past Medical History (Last Reviewed 12/06/19 @ 17:54 by Gonzalo Leo MD) Abnormal EKG (Acute Medical) Freq PVCs and occas PACs Carpal tunnel syndrome (Resolved Medical ~2005) rt. 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 Healy Reason for Referral Cognitive Assessment Past Medical History Patient History Patient admitted for CVA, specifically 3 small foci of acute or subacute ischemic injury to right frontal and left deep white matter tracts, without mass effect or associated hemorrhage. She is being seen by PT and OT and was referred for cognitive evaluation due to observations of difficulty with memory and problem solving. 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 Speech was 100% intelligible. No evidence of dysarthria or aphasia observed . Patient noted to participate appropriately in conversation without difficulty. Social/ nonverbal language were appropriate. - Cognition Cognitive Assessment Cognitive Assessment The [place] Cognitive Assessment was administered and completed. Patient scored 26/30 indicating normal cognitive function. Patient endorsed having some difficulty with completing some of the tasks on the assessment as well as peg activity completed earlier today with OT. She scored 3/5 on visuospatial/executive functions, 3/3 on naming, 6/6 on attention, 3/3 on language, 3/5 on delayed recall (13/15 memory index score) and 6/6 on orientation. - Memory - Recommendations Recommendations Results of cognitive screen indicate patient has normal cognitive function, however, she reports some difficulty observed with problem solving and memory. She would benefit from more thorough standardized assessment including assessment of functional higher level tasks such as bill pay. Total Time Full Evaluation Time 25
[2019-12-08] MEDS: ALBUTEROL HFA 60 PUFF/8 GM INH INH (19:15)
[2019-12-08] MEDS: MELATONIN 3 MG TABLET 6 MG PO (20:57)
[2019-12-09] VITALS (9 sets, daily range): BP systolic 125–165; BP diastolic 65–96; PULSE 75–97; RESP 14–20; TEMP 36.3–36.6; O2SAT 92–98
--- NOTE | 2019-12-09 | DI.US.S_ITS ---
PROCEDURE: US PERIPH VENOUS LOW EXTREM BI INDICATIONS: EMBOLI TECHNIQUE: Real-time imaging, as well as color and pulse Doppler interrogation, were performed of the deep veins of both legs from the inguinal ligament to the popliteal fossa. COMPARISON: [facility], , PVE UNILATERAL LEFT, 04/11/2011, 20:14. FINDINGS: Right: The common femoral, femoral and popliteal veins are normally compressible, and free of intraluminal thrombus. Color and pulse Doppler demonstrate normal phasic intravascular flow. There is normal augmentation response to distal compression maneuver. Left: The common femoral, femoral and popliteal veins are normally compressible, and free of intraluminal thrombus. Color and pulse Doppler demonstrate normal phasic intravascular flow. There is normal augmentation response to distal compression maneuver. Bilateral complex Kemp's cysts are incidentally noted. IMPRESSION: Negative for deep venous thrombosis. Dictated by: Alli Lagos M.D. on 12/09/2019 at 13:47 Approved by: Alli Lagos M.D. on 12/09/2019 at 13:48
[2019-12-09 05:42] LABS: BUN Creatinine Ratio 35.6 (6-22); Blood Urea Nitrogen 32 mg/dL (7-17); Calcium 9.4 mg/dL (8.4-10.2); Carbon Dioxide 26 mmol/L (22-32); Chloride 104 mmol/L (98-107); Estimated Glomerular Filt Rate > 60.0 mL/min (>60); Glucose 123 mg/dL (80-110); HEMOLYSIS < 15 (0-50); Potassium 3.7 mmol/L (3.4-5.1); Sodium 138 mmol/L (137-145)
[2019-12-09] MEDS: TRAMADOL 50 MG TABLET PO ×4 (06:21→23:44)
[2019-12-09] MEDS: ACETAMINOPHEN 325 MG TABLET 650 MG PO ×2 (06:22→23:44)
--- NOTE | 2019-12-09 08:49 | CM.DPC ---
Addendum entered by Alexandra Gage R.N. 12/09/19 11:19: Updated Dr. Garcia that patient will not be able to discharge until Wednesday, due to pending insurance authorization. She is aware, and in agreement that inpatient acute rehab is what patient needs. Addendum entered by Alexandra Gage R.N. 12/09/19 10:46: Sissy, who is week-end admissions at [facility], called back. Stated that insurance authorization was started yesterday, but will not hear back from insurance until Wednesday, since they are closed on the week-end. Asked Sissy if they are sure that they have bed availability for Wednesday. Stated that it will depend if they get several admits, but is noted that they do. At this point, will be unable to get any other inpatient facilities since insurance authorization is already started, and it's the week-end. Will need to follow up with [facility] on Wednesday as far as authorization. Will update Dr. Garcia tomorrow as well. Addendum entered by Alexandra Gage R.N. 12/09/19 10:23: Left another message with Sindhu Handley in admissions. If no response in the next few hours, will try main number at [facility]. Updated Dr. Garcia on plan, for she stated that patient is medically stable. Original Note: DCP Cont: Met briefly with patient's , [place]. Confirmed that [facility] inpatient is still the plan. Called admissions at [facility], and left a message regarding status. It is noted that there are beds available, but insurance authorization is pending. Asked in message for admissions to call this disability case manager back regarding status. P: DCP to continue to follow. Will follow up with [facility] inpatient rehab today. Alexandra Gage RN/Continuous Drier Operator
[2019-12-09] MEDS: ASPIRIN 325 MG TABLET PO (08:51)
[2019-12-09] MEDS: DICLOFENAC MISOPROSTOL 1 EACH PO (08:51)
[2019-12-09] MEDS: CHOLECALCIFEROL (VITAMIN D3) 1,000 UNIT TABLET 1000 UNIT PO (08:51)
[2019-12-09] MEDS: METFORMIN HCL 500 MG TABLET 1000 MG PO ×2 (08:51→16:53)
[2019-12-09] MEDS: AMLODIPINE 5 MG TABLET 10 MG PO (08:52)
[2019-12-09] MEDS: MONTELUKAST 10 MG TABLET PO (08:52)
[2019-12-09] MEDS: ATORVASTATIN 20 MG TABLET 40 MG PO (08:52)
[2019-12-09] MEDS: SODIUM CHLORIDE 0.9% FLUSH 10 ML IV ×2 (08:52→21:12)
[2019-12-09] MEDS: lisinopriL 20 MG TABLET PO ×2 (08:52→21:11)
[2019-12-09] MEDS: BUDESONIDE 90mcg FLEXHALER (60 PUFF/DEVICE) INH ×2 (08:53→19:43)
[2019-12-09] MEDS: INSULIN ASPART 100 UNIT/ML INSULN PEN SUBCUT ×3 (08:53→16:54)
[2019-12-09] MEDS: estradioL 0.5 MG TABLET PO (08:59)
--- NOTE | 2019-12-09 10:45 | PC.NURSE ---
Addendum entered by Deborah Juarez R.N. 12/09/19 14:04: US - Verified with Dr. Garcia that the juli US should be of lower extremities and not upper extremities, she will re-enter order, verified lower with Sangeetha in [place]. Original Note: AM NOTE - pt is up to chair for breakfast, req that her arthritis medication be administered with meal, pain 5 on scale 0/10 l knee, does have weakness rle, states she has difficulty moving her r foot with mobilization, medical scribe r hand is weaker than l, ra 94%, hr reg 95.
--- NOTE | 2019-12-09 10:55 | PT.IPTN ---
Current Diagnoses Cerebral infarction due to embolism of unspecified cerebral artery (12/06/19) Physical Therapy Treatment Note M2 PT-IP Current Condition Start: 12/06/19 12:35 Freq: Status: Active Protocol: Document 12/06/19 12:36 MB (Rec: 12/06/19 13:05 MB [id number]) Physical Therapy Current Condition Current Condition Evaluation Date 12/06/19 Treatment Diagnosis R sided weakness, greater in right leg Onset Date 12/06/2019 M3 PT-IP Subjective Start: 12/06/19 12:35 Freq: Status: Active Protocol: Document 12/09/19 10:32 KS (Rec: 12/09/19 12:23 KS [id number]) Subjective Physical Therapy Visit Type Type Treatment Note Visit Start Time 10:32 Visit Stop Time 10:55 Total Visit Minutes 23 Number of HAND BRUSH FILLER Visits 4 Physical Therapy Visit Comments Patient Comments Pt is willing to work w/ therapy. Therapy Pain Assessment Pain When Pain Assessed During Mobility Pain Present Pain Present Denied Pain M4 PT-IP Mobility and Gait Start: 12/06/19 12:35 Freq: Status: Active Protocol: Document 12/09/19 10:32 KS (Rec: 12/09/19 12:23 KS [id number]) PT-Bed Mobility Assessment Scooting Scooting to Edge of Bed Contact Guard Assistance PT-Transfer Assessment Sit to and From Stand Sit to and from Stand Minimal Assistance,1 Person Assistance,Use of Upper Extremities Equipment Transfer Assistive Device Gait Belt,Front Wheeled Walker Transfers Transfer Technique Pt ambulated w/ FWW. Transfer Ability Level of Assist 1 Person Assistance Comments Mobility Comments Pt was reclined in chair upon arrival from therapy. Pt able to recall 2/4 LE strengthening exercises (ankle pumps and quad sets), completed 1x10 ankle pumps, quad sets, seated marching, and glute sets. CGA for scooting to edge of chair . Min A and cues to push up for sit<>stand w/ FWW. Pt then ambulated and returned back to sitting in chair. Min A for stand<>sit, pt remembered to reach back for chair, but still lacks strength to perform slow descent. Pt left reclined in chair w/ all needs in reach. Gait Assessment Gait Gait Assistance Required: Minimum Assistance,1 Person Assist Distance (Feet) 50 Able to Maintain Weight Bearing Status Yes During Gait Assistive Devices Assistive Device Front Wheeled Walker Gait Deviations General Gait Pattern Decreased Stride Length, Decreased Feet Clearance, Flexed Trunk,Step-to Gait Factors Limiting Gait Function Factors Limiting Gait Function Decreased Activity Tolerance, Decreased Strength, Incoordination,Poor Balance, Poor Safety Awareness Comments Gait Comments Pt ambulated ~50 ft w/ FWW from chair out into hallway and back w/ Min A. Pt needs frequent verbal and tactile cues for walker management, upright posture, and quad activation. Upon return to chair, pt verbalizes wobbly feeling in knee and has LOB towards R side. She then took short standing rest break w/ using FWW and edge of sink for support. Pt able to recover balance w/ Min A and encouragement to straighten knee, she then returned to chair. Pt continues to have low tolerance for ambulation and balance deficits. PT-Balance Assessment Sitting Balance and Reactions Static Sitting Balance Ability Good Dynamic Sitting Balance Ability Fair Standing Balance and Reactions Static Standing Balance Ability Poor Dynamic Standing Balance Ability Poor Device Used FWW M5 PT-IP Objective Assessments Start: 12/06/19 12:35 Freq: Status: Active Protocol: Document 12/06/19 12:36 MB (Rec: 12/06/19 13:05 MB [id number]) Orientation Orientation/Cognition Level of Alertness Alert Orientation Name,Age,Birthday,Month,Date, Year,Day of Week,Place, Situation Language Function Ability No Deficits Noted Safety Awareness Decreased Safety Awareness Comments Pt tends to reach for grab bar , does not reach back for bed to sit despite multiple cues to do so. Gross Range of Motion Upper Extremity ROM Impairments Decreased end-range B shoulder flexion, mildly greater on the right Lower Extremity ROM Impairments Functionally drags right foot with gait. She cannot tolerate hip flexion and full knee flexion and extension in supine d/t pain B Strength Upper Extremity Strength Assessment Bilaterally Impaired Shoulder Flexion right 3-/5; left 3/5 Elbow Flexion right 3-/5; left 3/5 Hand Right batch and furnace manager weaker than the left, pt states is not normal Lower Extremity Strength Assessment Bilaterally Impaired Hip Pt cannot tolerate MMT d/t pain, functionally weaker on the right with gait Knee As above Ankle B DF 5/5; right PF 4/5; left PF 5/5. Comments Strength Comments Right LE weakness with gait, once getting up from toilet, her right leg gives way and she requires heavy +2 asst for transfer to w/c Sensation Assessment Sensation Proprioception (Position) Impaired Comments Sensation Comments Impaired proprioception right toes M6 PT-IP Treatment Start: 12/06/19 12:35 Freq: Status: Active Protocol: Document 12/09/19 10:32 KS (Rec: 12/09/19 12:23 KS [id number]) Physical Therapy Treatment Exercises Exercises Ankle Pumps,Gluteal Sets,Quad Sets Education Education Provided Weight Bearing Status,Safety Other Treatments Other Treatment Performed seated marching, discussed outpatient rehab M7 PT-IP Assessment and Plan Start: 12/06/19 12:35 Freq: Status: Active Protocol: Document 12/09/19 10:32 KS (Rec: 12/09/19 12:23 KS [id number]) PT Summary Assessment and Plan Potential Rehabilitation Potential Fair Summary Impairments Pain,ROM,Strength,Balance, Sensation,Bed Mobility, Transfers,Gait,Activity Tolerance Assessment Summary Pt was eager to work w/ therapy and recalled 2/4 LE strengthening exercises.Performed 1x10 ankle pumps, quad sets, glute sets, and seated marches. CGA for scooting to edge of chair, Min A, cues, and use of UE for sit<>stand w/ FWW. Min A and max cues during ambulation w/ FWW for FWW management, posture, and quad activation. Pt has LOB to R side upon return to chair and utilized FWW and edge of sink for support, but is able to recover and continue walking to chair. Min A for stand<> sit in chair w/ FWW, has awareness but lacks strength to perform slow descent. Balance, strength, and coordination deficits still present. Goals Bed Mobility Goal Independent Transfer Goal Independent Gait Goal Contact Guard Assistance Gait Distance 50 with RW Frequency of Treatment Frequency Of Treatment Twice a Day Treatment Plan Physical Therapy Treatment Plan Bed Mobility Training,Transfer Training,Gait Training, Therapeutic Exercise,Balance Retraining,Discharge Planning, Hot or Cold Pack,Neuromuscular Re-ed,Coordination Retraining Recommendations To Nursing Amount of Assist Needed 2 Person Assist Discharge Recommendations Other Discharge Recommendations 24 hour asst and PT at d/c, PT recommends Inpatient Rehabilitation disposition location for up to 3 hours of therapy (divided up) a day. Pt was able to ambulate with walker and has support at home HAND BRUSH FILLER
--- NOTE | 2019-12-09 11:48 | PM.PN.1 ---
Subjective Subjective Date Patient Seen: 12/09/19 Time Patient Seen: 09:48 Interval history: Patient is sitting up in chair today. Has many questions and no complaints. Had thyroid checked by her certified surgical technologist and her TSH is in the 4's. Dr. Rangel had noticed that her hair was thinning. She is able to write if she focuses but notices a difference. She is not having chest pain, shortness of breath, headaches, nausea, vomiting. She tells me that her blood pressures had been significantly elevated on preop appointment for knee replacement. Had ED visit and office visit with increase in lisinopril. Surgery was rescheduled. She had this event and is here now before her left knee could be addressed. Exam Vital Signs (past 8 hours): - 12/09/19 04:15 12/09/19 08:00 12/09/19 08:53 Temperature 97.5 F L 97.9 F Pulse Rate 91 H 97 H 93 H Respiratory Rate 18 14 Blood Pressure 147/77 H 125/69 Pulse Oximetry 96 93 94 Oxygen Delivery Method Room Air Oxygen Flow Rate 0 Narrative Exam Narrative: General: Well-developed, well-nourished, female, no acute distress. Heart: Regular rate and rhythm, no murmurs appreciated Lungs: Clear to auscultation bilaterally, no wheezes, rales or rhonchi Extremities: Warm and well perfused, 1+ pitting edema bilaterally, stasis dermatitis at the gaiter area mildly tender. Neuro: Mild right-sided facial droop Objective Labs Result Diagrams: 12/06/19 08:30 12/09/19 05:05 Labs: Laboratory Results - last 24 hr 12/09/19 05:05 Sodium 138 Potassium 3.7 Chloride 104 Carbon Dioxide 26 BUN 32 H Creatinine 0.90 Estimated GFR > 60.0 BUN/Creatinine Ratio 35.6 H Glucose 123 H Calcium 9.4 Assessment & Plan Assessment & Plan narrative: 1. CVA-patient with evidence of an acute/subacute CVA. A bit puzzling since the appearance appears to be sort of small-vessel kind of stroke but it is bilateral within the brain suggesting embolic source. Further workup with carotids show plaquing but no significant stenosis. Given the likely embolic event will check LE venous US. She has been immobile with chronic venous stasis. She is currently on telemetry monitoring for irregular heart rhythms (PCV/PAC). She had seen Dr. Cui for preop eval because of irregularity and she recommended potassium supplementation and to check magnesium. Potassium has been low normal and will check mag. Echo showing LVH and pulmonary hypertension. Increased her atorvastatin to high-intensity statin levels. Blood pressures have been improved today. Continue ASA 325 mg. Continue with physical therapy and occupational therapy. Recommend inpatient rehab. 2. Diabetes-continue usual meds. Continue with additional sliding scale. Consider glipizide increase if she continues to need sliding scale. Continue with diabetic diet. 3. Hypertension-numbers are improved over her baseline outpatient numbers. Continue to monitor here in the hospital and if necessary add additional antihypertensive therapy upon discharge 4. Hyperlipidemia-as above have increased dose of atorvastatin into the high-intensity statin range 5. Osteoarthritis-severe symptoms currently in the left knee needing surgery. That may impact her ability to function with now the other side being affected by his stroke. Again physical therapy evaluation. Will continue her anti-inflammatories limited pain meds and if necessary limited amount of opiates as well 6. VTE prophylaxis-sequential compression devices are being employed. Note: Greater than 35 minutes was spent evaluating the patient on the floor, including examining the patient, discussing clinical course with clinical and nursing staff, reviewing clinical course in the computer, preparing documentation and writing orders for continued management of care, discussing status with family as appropriate, reviewing plans for the next 24 hours with both patient/family and nursing staff as appropriate.
[2019-12-09 12:46] LABS: Magnesium 1.6 mg/dL (1.6-2.3)
[2019-12-09] MEDS: POTASSIUM CHLORIDE 20 MEQ TAB PO (13:46)
[2019-12-09] MEDS: MAGNESIUM CHLORIDE 64 MG TABLET PO (13:46)
--- NOTE | 2019-12-09 15:23 | PT.IPTN ---
Current Diagnoses Cerebral infarction due to embolism of unspecified cerebral artery (12/06/19) Physical Therapy Treatment Note M2 PT-IP Current Condition Start: 12/06/19 12:35 Freq: Status: Active Protocol: Document 12/06/19 12:36 MB (Rec: 12/06/19 13:05 MB [id number]) Physical Therapy Current Condition Current Condition Evaluation Date 12/06/19 Treatment Diagnosis R sided weakness, greater in right leg Onset Date 12/06/2019 M3 PT-IP Subjective Start: 12/06/19 12:35 Freq: Status: Active Protocol: Document 12/09/19 14:51 KS (Rec: 12/09/19 16:09 KS [id number]) Subjective Physical Therapy Visit Type Type Treatment Note Visit Start Time 14:51 Visit Stop Time 15:23 Total Visit Minutes 32 Number of LIVING SUPERVISOR Visits 5 Physical Therapy Visit Comments Patient Comments Pt is willing to work w/ therapy. Therapy Pain Assessment Pain When Pain Assessed During Mobility Pain Present Pain Present Pain Reported Location Left Knee Pain Behaviors Wincing Pain Management Techniques Re-positioning M4 PT-IP Mobility and Gait Start: 12/06/19 12:35 Freq: Status: Active Protocol: Document 12/09/19 14:51 KS (Rec: 12/09/19 16:09 KS [id number]) PT-Bed Mobility Assessment Rolling Type of Rolling Log Rolling Level of Assist Minimal Assistance,1 Person Assistance Supine to Sit Supine to Sit Moderate Assistance Sit to Supine Sit to Supine Minimal Assistance,1 Person Assistance Scooting Scooting to Edge of Bed Contact Guard Assistance PT-Transfer Assessment Sit to and From Stand Sit to and from Stand Minimal Assistance,1 Person Assistance,Use of Upper Extremities Equipment Transfer Assistive Device Gait Belt,Front Wheeled Walker Transfers Transfer Destination Bed Transfer Technique Stand Pivot Transfer Ability Level of Assist 1 Person Assistance Comments Mobility Comments Pt was in bed upon arrival from therapy and was willing to participate. Min A for log roll and use of hand rails and Mod A for sidelying to sitting EOB, needing assistance for sitting upright . CGA for scooting to EOB, Min A for sit<>stand w/ FWW and use of UE. Pt then marched in place for 1 min x4 to focus on strengthening hip flexors and dorsiflexors to increase safety and endurance when ambulating and reinforce neuromuscular connections. Pt needs cues for upright posture , quad activation, and focus on pulling toes up when marching. Pt needed seated rest break during which she performed seated marching after each ~1 min bout of marching due to pain in L knee . Min A for stand<> sit, and sit<>sup, Max A x2 for scooting up in bed. Pt left in bed w/ all needs in reach and refused SCDs. Gait Assessment Gait Gait Assistance Required: Minimum Assistance,1 Person Assist Distance (Feet) 1 Able to Maintain Weight Bearing Status Yes During Gait Assistive Devices Assistive Device Front Wheeled Walker Comments Gait Comments See mobility for details of pre-gait training. PT-Balance Assessment Sitting Balance and Reactions Static Sitting Balance Ability Good Dynamic Sitting Balance Ability Fair Standing Balance and Reactions Static Standing Balance Ability Poor Dynamic Standing Balance Ability Poor Device Used FWW M5 PT-IP Objective Assessments Start: 12/06/19 12:35 Freq: Status: Active Protocol: Document 12/06/19 12:36 MB (Rec: 12/06/19 13:05 MB [id number]) Orientation Orientation/Cognition Level of Alertness Alert Orientation Name,Age,Birthday,Month,Date, Year,Day of Week,Place, Situation Language Function Ability No Deficits Noted Safety Awareness Decreased Safety Awareness Comments Pt tends to reach for grab bar , does not reach back for bed to sit despite multiple cues to do so. Gross Range of Motion Upper Extremity ROM Impairments Decreased end-range B shoulder flexion, mildly greater on the right Lower Extremity ROM Impairments Functionally drags right foot with gait. She cannot tolerate hip flexion and full knee flexion and extension in supine d/t pain B Strength Upper Extremity Strength Assessment Bilaterally Impaired Shoulder Flexion right 3-/5; left 3/5 Elbow Flexion right 3-/5; left 3/5 Hand Right student development coordinator weaker than the left, pt states is not normal Lower Extremity Strength Assessment Bilaterally Impaired Hip Pt cannot tolerate MMT d/t pain, functionally weaker on the right with gait Knee As above Ankle B DF 5/5; right PF 4/5; left PF 5/5. Comments Strength Comments Right LE weakness with gait, once getting up from toilet, her right leg gives way and she requires heavy +2 asst for transfer to w/c Sensation Assessment Sensation Proprioception (Position) Impaired Comments Sensation Comments Impaired proprioception right toes M6 PT-IP Treatment Start: 12/06/19 12:35 Freq: Status: Active Protocol: Document 12/09/19 14:51 KS (Rec: 12/09/19 16:09 KS [id number]) Physical Therapy Treatment Education Education Provided Weight Bearing Status,Safety Other Treatments Other Treatment Performed seated marching M7 PT-IP Assessment and Plan Start: 12/06/19 12:35 Freq: Status: Active Protocol: Document 12/09/19 14:51 KS (Rec: 12/09/19 16:09 KS [id number]) PT Summary Assessment and Plan Potential Rehabilitation Potential Fair Summary Impairments Pain,ROM,Strength,Balance, Sensation,Bed Mobility, Transfers,Gait,Activity Tolerance Assessment Summary Pt was Min to Mod A for bed mobility, CGA for scooting, and Min A for sit<> stand. Pt completed 4 bouts of [address], to focus on hip flexor and dorsiflexion strengthening and neuromuscular re-ed. Pt did seated marching during seated rest breaks. Mod A for sit<>sup, and Max A x2 for repositioning in bed. Goals Bed Mobility Goal Independent Transfer Goal Independent Gait Goal Contact Guard Assistance Gait Distance 50 with RW Frequency of Treatment Frequency Of Treatment Twice a Day Treatment Plan Physical Therapy Treatment Plan Bed Mobility Training,Transfer Training,Gait Training, Therapeutic Exercise,Balance Retraining,Discharge Planning, Hot or Cold Pack,Neuromuscular Re-ed,Coordination Retraining Recommendations To Nursing Amount of Assist Needed 2 Person Assist Discharge Recommendations Other Discharge Recommendations 24 hour asst and PT at d/c, PT recommends Inpatient Rehabilitation disposition location for up to 3 hours of therapy (divided up) a day. Pt was able to ambulate with walker and has support at home LIVING SUPERVISOR
[2019-12-09] MEDS: MELATONIN 3 MG TABLET 6 MG PO (21:11)
[2019-12-10] VITALS (8 sets, daily range): BP systolic 138–153; BP diastolic 66–86; PULSE 70–99; RESP 16–18; TEMP 36.2–36.6; O2SAT 94–97
[2019-12-10] MEDS: TRAMADOL 50 MG TABLET PO ×4 (05:15→23:54)
[2019-12-10] MEDS: ACETAMINOPHEN 325 MG TABLET 650 MG PO ×2 (05:15→17:32)
[2019-12-10 05:31] LABS: Blood Urea Nitrogen 24 mg/dL (7-17); Calcium 9.5 mg/dL (8.4-10.2); Carbon Dioxide 29 mmol/L (22-32); Chloride 105 mmol/L (98-107); Estimated Glomerular Filt Rate > 60.0 mL/min (>60); Glucose 111 mg/dL (80-110); HEMOLYSIS < 15 (0-50); Sodium 139 mmol/L (137-145)
[2019-12-10] MEDS: METFORMIN HCL 500 MG TABLET 1000 MG PO ×2 (08:45→17:33)
[2019-12-10] MEDS: CHOLECALCIFEROL (VITAMIN D3) 1,000 UNIT TABLET 1000 UNIT PO (08:46)
[2019-12-10] MEDS: POTASSIUM CHLORIDE 20 MEQ TAB PO (08:46)
[2019-12-10] MEDS: ASPIRIN 325 MG TABLET PO (08:46)
[2019-12-10] MEDS: MONTELUKAST 10 MG TABLET PO (08:46)
[2019-12-10] MEDS: lisinopriL 20 MG TABLET PO ×2 (08:46→21:53)
[2019-12-10] MEDS: AMLODIPINE 5 MG TABLET 10 MG PO (08:46)
[2019-12-10] MEDS: MAGNESIUM CHLORIDE 64 MG TABLET PO (08:47)
[2019-12-10] MEDS: DICLOFENAC MISOPROSTOL 1 EACH PO (08:47)
[2019-12-10] MEDS: estradioL 0.5 MG TABLET PO (08:56)
[2019-12-10] MEDS: ATORVASTATIN 20 MG TABLET 40 MG PO (09:04)
[2019-12-10] MEDS: SODIUM CHLORIDE 0.9% FLUSH 10 ML IV ×2 (09:05→21:53)
[2019-12-10] MEDS: BUDESONIDE 90mcg FLEXHALER (60 PUFF/DEVICE) INH ×2 (10:15→23:54)
--- NOTE | 2019-12-10 10:15 | CM.DPC ---
NJP Cont: Spoke to Dr. Garcia this morning and let her know that insurance authorization is still pending. Let her know that this family preservation caseworker would call her if somehow, there is an authorization today, but is unlikely since it's Wednesday. Let Dr. Cummings know that case management would also be following up Wednesday. Left a message with Sissy, who is in admissions at [facility] this week-end. In the message, asked her if there is any additional information that may be needed to get insurance authorization. Spoke to , [place]. Asked him that if insurance does not authorize inpatient at [facility], if there is any other [facility] facility that he would want patient to go to. stated, if she could get in the car, I wouldn't mind her coming home and going to outpatient PT, but I don't know if that's an option now. He did inquire about paying privately at [facility], and stated, this may be an option, for if she really needs high level of P.T, it's important that she gets it. Let know that this family preservation caseworker would call [facility] back and leave a message to inquire about daily cost. Left another message with Sissy at [facility] in admissions to inquire about daily rate. If she returns call with information, will update . P: [facility] will continue to collaborate with [facility]. If they call back with daily rate, will update . is hopeful, that her insurance will authorize. Alexandra Gage RN/Net Manager
--- NOTE | 2019-12-10 11:36 | PT.IPTN ---
Current Diagnoses Cerebral infarction due to embolism of unspecified cerebral artery (12/06/19) Physical Therapy Treatment Note M2 PT-IP Current Condition Start: 12/06/19 12:35 Freq: Status: Active Protocol: Document 12/06/19 12:36 MB (Rec: 12/06/19 13:05 MB [id number]) Physical Therapy Current Condition Current Condition Evaluation Date 12/06/19 Treatment Diagnosis R sided weakness, greater in right leg Onset Date 12/06/2019 M3 PT-IP Subjective Start: 12/06/19 12:35 Freq: Status: Active Protocol: Document 12/10/19 11:36 CLB (Rec: 12/10/19 12:36 CLB [id number]) Subjective Physical Therapy Visit Type Type Treatment Note Visit Start Time 11:36 Visit Stop Time 12:06 Total Visit Minutes 40 Number of MANAGER COUNCIL Visits 6 Physical Therapy Visit Comments Patient Comments Pt is willing to work w/ therapy. Therapy Pain Assessment Pain When Pain Assessed During Mobility Pain Present Pain Present Pain Reported Location Back Pain Behaviors Holding Area,[place] Pain Management Techniques Re-positioning Left Knee Pain Behaviors [place] Pain Management Techniques Re-positioning M4 PT-IP Mobility and Gait Start: 12/06/19 12:35 Freq: Status: Active Protocol: Document 12/10/19 11:36 CLB (Rec: 12/10/19 12:36 CLB [id number]) PT-Transfer Assessment Sit to and From Stand Sit to and from Stand Minimal Assistance,1 Person Assistance,Use of Upper Extremities Equipment Transfer Assistive Device Gait Belt,Front Wheeled Walker Transfers Transfer Destination Chair Transfer Technique ambulation w/FWW Transfer Ability Level of Assist 1 Person Assistance Comments Mobility Comments Pt in chair upon arrival. Pt able to scoot to edge of the chair SBA and required Min A and cues for hand placement for sit-stand. Pt ambulated in quarles then sat back in chair for seated exercises. Left pt in chair with all light and all other needs within reach and chair alarm on. Gait Assessment Gait Gait Assistance Required: Minimum Assistance,1 Person Assist Distance (Feet) 75 Assistive Devices Assistive Device Front Wheeled Walker Gait Deviations General Gait Pattern Decreased Stride Length, Decreased Feet Clearance, Flexed Trunk,Step-to Gait Factors Limiting Gait Function Factors Limiting Gait Function Decreased Activity Tolerance, Decreased Strength, Incoordination,Poor Balance, Poor Safety Awareness Comments Gait Comments Pt able to increase ambulation to ~75ft requiring Min A and verbal cues for foot clearance of bilateral LE's. Pt able to correct posture and stated that she can feel herself leaning to right side and was able to attempt to correct posture. Pt fatigued towards end of gait and required CGA for stand-sit and cues to use UE's to slow descent rather than plop down in chair. PT-Balance Assessment Sitting Balance and Reactions Static Sitting Balance Ability Good Dynamic Sitting Balance Ability Fair Standing Balance and Reactions Static Standing Balance Ability Poor Dynamic Standing Balance Ability Poor Device Used FWW M5 PT-IP Objective Assessments Start: 12/06/19 12:35 Freq: Status: Active Protocol: Document 12/06/19 12:36 MB (Rec: 12/06/19 13:05 MB [id number]) Orientation Orientation/Cognition Level of Alertness Alert Orientation Name,Age,Birthday,Month,Date, Year,Day of Week,Place, Situation Language Function Ability No Deficits Noted Safety Awareness Decreased Safety Awareness Comments Pt tends to reach for grab bar , does not reach back for bed to sit despite multiple cues to do so. Gross Range of Motion Upper Extremity ROM Impairments Decreased end-range B shoulder flexion, mildly greater on the right Lower Extremity ROM Impairments Functionally drags right foot with gait. She cannot tolerate hip flexion and full knee flexion and extension in supine d/t pain B Strength Upper Extremity Strength Assessment Bilaterally Impaired Shoulder Flexion right 3-/5; left 3/5 Elbow Flexion right 3-/5; left 3/5 Hand Right assisted living coordinator weaker than the left, pt states is not normal Lower Extremity Strength Assessment Bilaterally Impaired Hip Pt cannot tolerate MMT d/t pain, functionally weaker on the right with gait Knee As above Ankle B DF 5/5; right PF 4/5; left PF 5/5. Comments Strength Comments Right LE weakness with gait, once getting up from toilet, her right leg gives way and she requires heavy +2 asst for transfer to w/c Sensation Assessment Sensation Proprioception (Position) Impaired Comments Sensation Comments Impaired proprioception right toes M6 PT-IP Treatment Start: 12/06/19 12:35 Freq: Status: Active Protocol: Document 12/10/19 11:36 CLB (Rec: 12/10/19 12:36 CLB [id number]) Physical Therapy Treatment Exercises Exercises Ankle Pumps,Gluteal Sets,Quad Sets,Seated Knee Flexion/ Extension Education Education Provided Weight Bearing Status,Safety Other Treatments Other Treatment Performed seated marches, standing marches 1 min x2, during seated knee ext/flx pt was asked to hold in ext for count of 5. During seated marches pt was asked to hold knee in flx with foot off floor and foot in DF. M7 PT-IP Assessment and Plan Start: 12/06/19 12:35 Freq: Status: Active Protocol: Document 12/10/19 11:36 CLB (Rec: 12/10/19 12:36 CLB [id number]) PT Summary Assessment and Plan Potential Rehabilitation Potential Fair Summary Impairments Pain,ROM,Strength,Balance, Sensation,Bed Mobility, Transfers,Gait,Activity Tolerance Assessment Summary Pt eager to work with therapy and is able to follow directions well. Pt is SBA for scooting to edge of chair and Min A for sit<>stand and cues for hand placement for safety and to slow descent. Pt fatigued after gait and required a seated rest break before moving into seated ther ex. Pt increased gait distance fatigued towards end of gait with decrease in foot clearance. Pt c/o left knee pain making ambulation and standing marches more difficult. Goals Bed Mobility Goal Independent Transfer Goal Independent Gait Goal Contact Guard Assistance Gait Distance 50 with RW Frequency of Treatment Frequency Of Treatment Twice a Day Treatment Plan Physical Therapy Treatment Plan Bed Mobility Training,Transfer Training,Gait Training, Therapeutic Exercise,Balance Retraining,Discharge Planning, Hot or Cold Pack,Neuromuscular Re-ed,Coordination Retraining Recommendations To Nursing Amount of Assist Needed 1 Person Assist Discharge Recommendations Other Discharge Recommendations 24 hour asst and PT at d/c, PT recommends Inpatient Rehabilitation disposition location for up to 3 hours of therapy (divided up) a day. Pt was able to ambulate with walker and has support at home MANAGER COUNCIL
--- NOTE | 2019-12-10 11:53 | PM.PN.1 ---
Subjective Subjective Date Patient Seen: 12/10/19 Time Patient Seen: 11:13 Interval history: Patient is sitting up in chair today. Has many questions and no complaints. Seems motivated to work on her physical therapy exercises. Has some coins that she will start working on with her right hand. She is not having chest pain, shortness of breath, headaches, nausea, vomiting. She does not like the way her medications have been administered here. Believes the number of pills she has to take in more morning is excessive. Exam Vital Signs (past 8 hours): - 12/10/19 05:21 12/10/19 07:50 12/10/19 10:15 Temperature 97.7 F 97.2 F L Pulse Rate 99 H 70 75 Respiratory Rate 18 16 16 Blood Pressure 141/86 H 146/71 H Pulse Oximetry 96 97 96 Oxygen Delivery Method Room Air Oxygen Flow Rate 0 Narrative Exam Narrative: General: Well-developed, well-nourished, female, no acute distress. Heart: Regular rate and rhythm Lungs: Clear to auscultation bilaterally, no wheezes, rales or rhonchi Extremities: Warm and well perfused, 1+ pitting edema bilaterally, stasis dermatitis at the gaiter area mildly tender. Able to lift her right leg if she focuses but not against resistance. Objective Labs Result Diagrams: 12/06/19 08:30 12/10/19 04:50 Labs: Laboratory Results - last 24 hr 12/09/19 12/10/19 05:05 04:50 Sodium 139 Potassium 4.0 Chloride 105 Carbon Dioxide 29 BUN 24 H Creatinine 0.80 Estimated GFR > 60.0 BUN/Creatinine Ratio 30.0 H Glucose 111 H Calcium 9.5 Magnesium 1.6 Assessment & Plan Assessment & Plan narrative: 1. CVA-patient with evidence of an acute/subacute CVA. A bit puzzling since the appearance appears to be sort of small-vessel kind of stroke but it is bilateral within the brain suggesting embolic source. Further workup with carotids show plaquing but no significant stenosis. Given the likely embolic event LE venous US showing no evidence of DVT just bilateral Bakers cysts. She has been immobile with chronic venous stasis. No arrythmia on tele beyond her premature contractions. Added potassium and magnesium supplementation yesterday to try to maintain K at 4 and Mg at 2. Echo showing LVH and pulmonary hypertension. atorvastatin at high-intensity statin levels. Blood pressures normal yesterday and mildly increased today. Continue ASA 325 mg. Continue with physical therapy and occupational therapy. Recommend inpatient rehab. 2. Diabetes-continue usual meds. Has used a minimal amount of sliding scale so will stop this. Continue with diabetic diet. 3. Hypertension-numbers are improved over her baseline outpatient numbers. Continue to monitor here in the hospital and if necessary add additional antihypertensive therapy upon discharge 4. Hyperlipidemia-as above have increased dose of atorvastatin into the high-intensity statin range 5. Osteoarthritis-severe symptoms currently in the left knee needing surgery. That may impact her ability to function with now the other side being affected by his stroke. She is unable to function at home and is motivated to do high intensity therapy. Will continue her anti-inflammatories and limited pain meds and if necessary limited amount of opiates as well. diclofenac not helping with blood pressure control. 6. Did discuss stopping her estrogen or changing to a different delivery method. If stopping would taper. Will leave this to her PCP and steam pan sponger. 7. Hypothyroid? TSH in the 4's. Would benefit from outpatient workup. 8. VTE prophylaxis-sequential compression devices are being employed. Hopefully she will be able to discharge tomorrow to inpatient intensive rehabilitation.
--- NOTE | 2019-12-10 13:29 | OT.IP.TRT ---
Current Diagnoses Cerebral infarction due to embolism of unspecified cerebral artery (12/06/19) Occupational Therapy Treatment Note M2 OT-IP Current Condition Start: 12/07/19 16:49 Freq: Status: Active Protocol: Document 12/07/19 16:43 PJM (Rec: 12/07/19 17:14 PJM [id number]) Occupational Therapy Current Condition Current Condition Evaluation Date 12/07/19 Treatment Diagnosis decreased self care, mobility with Dx: stroke, R frontal, L periventricular Diagnosis Onset Date 12/06/19 Post Operative Precautions Other Precautions RLE weakness, painful L knee, fall risk M3 OT- IP Subjective and Pain Start: 12/07/19 16:49 Freq: Status: Active Protocol: Document 12/10/19 13:25 CGR (Rec: 12/10/19 13:29 CGR [id number]) OT- Subjective Occupational Therapy Visit Type Type Treatment Note Visit Start Time 12:54 Visit Stop Time 13:23 Total Visit Minutes 29 OT Pain Assessment Pain When Pain Assessed At Rest Pain Present Pain Present Denied Pain M4 OT- IP ADL's Start: 12/07/19 16:49 Freq: Status: Active Protocol: Document 12/08/19 13:15 CCC (Rec: 12/08/19 13:46 CCC [id number]) OT ADL-Grooming General Evaluation Grooming Ability Standby Assistance Comments OT Grooming Comments Pt able to stand at the sink with FWW. Pt needing to sit in between as tiring and right leg buckling, but needing cue to sit down. OT ADL-Oral Care General Eval Oral Care Ability Standby Assistance OT ADL-Dressing General Eval Lower Body Dressing Ability Standby Assistance Areas Needing Assistance Socks Comments OT Dressing Comments After education and cues , pt able to use seasonal clerk and sock aid to don/doff socks. Pt needing vc to plan items out and to have seasonal clerk close buy so able to use it when needed. OT ADL-Toileting Comments OT Toileting Comments did not occur this session OT ADL-Bathing Comments OT Bathing Comments to be assessed as mobility improves M5 OT- IP IADL's Start: 12/07/19 16:49 Freq: Status: Active Protocol: Document 12/07/19 16:43 PJM (Rec: 12/07/19 17:14 PJM [id number]) OT-Instrumental Activities of Daily Living Deficits IADL Deficits Identified Deficits Home Safety Awareness Awareness of Need for Assistance at Home Good Awareness Medication Management Medication Management No Deficits Identified Money Management Money Management No Deficits Identified Meal Preparation Meal Preparation Caregiver Provides Assist Meal Preparation Comments has been doing all IADLS due to pt's L knee pain Ripening Room Attendant Ripening Room Attendant Caregiver Provides Assist Ripening Room Attendant Comments has been doing all IADLS due to pt's L knee pain Driving Driving Caregiver Provides Assist Driving Comments husbnad to provide assist until pt able; recommend no driving at present due to RLE weakness M6 OT- IP Functional Cognition Start: 12/07/19 16:49 Freq: Status: Active Protocol: Document 12/08/19 13:15 [facility] (Rec: 12/08/19 13:46 [facility] [id number]) Cognitive Factors Limiting Selfcare Function Cognitive Ability Level of Alertness Alert Patient Orientation Name,Age,Birthday,Month,Date, Year,Day of Week,Place, Situation Attention Span Ability Capable of Focused Attention, Capable of Sustained Attention Ability to Follow Commands Able to Follow One Step Commands Memory Description Short Term Impaired Safety Awareness Underestimates Need for Assistance Problem Solving Ability Needs Assist to Identify Solutions Cognitive Tests ACL Pt scored 5.2 out of 6.0 which implies pt may need weekly checks to monitor the safety, assist with finances and manage social conflicts. However from physical stand point, pt will need someone there 31/05 as pt's RLE lino and not aware in addition has decreased safety awareness for FWW use. Cognitive Comments Cognitive Assessment Comments Pt noted having some decreased safety awareness and reminders to push up from the recliner and reach back with her handswhen sitting. M7 OT- IP Mobility and Balance Start: 12/07/19 16:49 Freq: Status: Active Protocol: Document 12/08/19 13:15 [facility] (Rec: 12/08/19 13:46 [facility] [id number]) OT-Transfer Assessment Sit to and From Stand Sit to and from Stand Minimal Assistance Transfers Transfer Ability Minimal Assistance Technique Transfer Destination Chair Devices Transfer Assistive Devices Gait Belt,Front Wheeled Walker Comments Mobility Comments Pt reminders to scoot forwards , push up from the recliner, vc to straigthen her right leg and focus on it. Pt having difficulty multi-tasking trying to brush her teeth while standing. OT- Balance Assessment Sitting Balance and Reactions Static Sitting Balance Ability Normal Dynamic Sitting Balance Ability Good Standing Balance and Reactions Static Standing Balance Ability Fair M8 OT- IP Objective Assessments Start: 12/07/19 16:49 Freq: Status: Active Protocol: Document 12/07/19 16:43 PJM (Rec: 12/07/19 17:14 PJM [id number]) OT Gross Range of Motion Upper Extremity Range of Motion Assessment Within Functional Limits ROM Impairments RUE lag noted during B AROM. B scaption limited to about 100 degrees by arthritis and stiffness. Distal AROM WFL with RUE movements slower than L. OT Strength Upper Extremity Strength Assessment Right Impaired Shoulder R 4/5 flex L 5/5 Elbow R 4/5 flex and 4/5 ext L 5/5 Forearm R 4-/5 L 5/5 Wrist R 4/5 L 5/5 Hand R 4/5 L 4+/5 Hand Health Care Attorney Strength Hand Dominance Right OT- Coordination Assessment Upper Extremity Finger to Nose Test Right UE Impaired Finger Tapping Test Right UE Impaired Comments Coordination Comments RUE gross and fine RUSSEL's slower than L. Pt reports decreased R handwriting legibility since stroke. OT-Muscle Tone Assessment Muscle Tone WNL Yes OT Sensation Assessment Comments Summary Comments BUE lt touch and proprioception intact. Edema Edema Present Edema Comments B feet and ankles M9 OT- IP Assessment and Plan Start: 12/07/19 16:49 Freq: Status: Active Protocol: Document 12/10/19 13:25 CGR (Rec: 12/10/19 13:29 CGR [id number]) OT Summary Assessment and Plan Potential Rehabilitation Potential Good Analytic Complexity at Evaluation Low Summary OT Impairments Strength,Balance,Coordination, Functional Mobility,Grooming, Dressing,Toileting,Bathing, Toilet Transfers,Shower Transfers,Activity Tolerance Progress Towards Goals Progressing Toward Goals Assessment Summary Pt very motivated to get better and able to be educated on FMS, handwriting, and activites to do on her own. Pt able to cloth picker coins and do in hand manipulation, educated pt to perform with L then with R to mimic the natural movement of the L. We worked on handwriting using the table to provide support to the whole arm with improved speed but still with limited endurance. Pt would benefit form acute rehab to work on increasing speed, smoothness of BUE movements and having difficulty with multi-tasking of BUE and BLE and for for sghort term memory. Goals Self-Feeding Goal Independent Grooming Goal Standby Assistance Dressing Goal Standby Assistance,Long Handled Shoe Horn,Shellfish Farming Supervisor,Sock Aid Toileting Goal Standby Assistance Bathing Goal Minimal Assistance,Grab Bars, Hand Held Shower Sprayer,Long Handled Sponge or [place] Toilet Transfer Goal Standby Assistance,Raised Toilet Seat,Grab Bars Shower Transfer Goal Contact Guard Assistance,Walk- in Shower,Shower Chair,Grab Bars Patient/Caregiver Education Goal Demonstrate Energy Conservation and Pacing OT-Other Goals Shower Days to Meet Goals 6 Frequency of Treatment Frequency Of Treatment Once a Day Treatment Plan OT Treatment Plan ADL Training,Functional Mobility,Patient/Family Education,Discharge Planning Discharge Recommendations OT Discharge Recommendations Acute Rehab Transportation Needs at Discharge Private Vehicle
--- NOTE | 2019-12-10 14:30 | PT.IPTN ---
Current Diagnoses Cerebral infarction due to embolism of unspecified cerebral artery (12/06/19) Physical Therapy Treatment Note M2 PT-IP Current Condition Start: 12/06/19 12:35 Freq: Status: Active Protocol: Document 12/06/19 12:36 MB (Rec: 12/06/19 13:05 MB [id number]) Physical Therapy Current Condition Current Condition Evaluation Date 12/06/19 Treatment Diagnosis R sided weakness, greater in right leg Onset Date 12/06/2019 M3 PT-IP Subjective Start: 12/06/19 12:35 Freq: Status: Active Protocol: Document 12/10/19 14:30 CLB (Rec: 12/10/19 15:14 CLB [id number]) Subjective Physical Therapy Visit Type Type Treatment Note Visit Start Time 14:30 Visit Stop Time 14:58 Total Visit Minutes 28 Number of WATERSHED MANAGER Visits 7 Physical Therapy Visit Comments Patient Comments Pt is willing to work w/ therapy. Therapy Pain Assessment Pain When Pain Assessed During Mobility Pain Present Pain Present Pain Reported Location Left Knee Pain Behaviors Wincing Pain Management Techniques Modification of Treatment,Re- positioning M4 PT-IP Mobility and Gait Start: 12/06/19 12:35 Freq: Status: Active Protocol: Document 12/10/19 14:30 CLB (Rec: 12/10/19 15:14 CLB [id number]) PT-Transfer Assessment Sit to and From Stand Sit to and from Stand Minimal Assistance,1 Person Assistance,Use of Upper Extremities Equipment Transfer Assistive Device Gait Belt,Front Wheeled Walker Transfers Transfer Destination Chair Transfer Technique ambulation w/FWW Transfer Ability Level of Assist 1 Person Assistance Comments Mobility Comments Pt required Min A for sit- stand, pt then ambulated in room due to increased pain in left knee during ambulation and pt stated her right knee felt like it would buckle. Pt ambulated ~40ft in room with Min A and then ambulated to BR , pt required assist with artur /doff brief but able to perform own pericare. Pt then requested to sit down. Pt performed seated ther ex. Left pt in chair with call light, chair alarm and all other needs within reach. Gait Assessment Gait Gait Assistance Required: Minimum Assistance,1 Person Assist Distance (Feet) 40 Able to Maintain Weight Bearing Status Yes During Gait Assistive Devices Assistive Device Gait Belt,Front Wheeled Walker Gait Deviations General Gait Pattern Decreased Stride Length, Decreased Feet Clearance, Flexed Trunk,Step-to Gait Factors Limiting Gait Function Factors Limiting Gait Function Decreased Activity Tolerance, Decreased Strength, Incoordination,Poor Balance, Poor Safety Awareness Comments Gait Comments Pt with increase of pain in LLE and was unable to ambulate as far this session. Pt requires cues for heel/toe stepping with activation of mm 's and keeping FWW close. PT-Balance Assessment Sitting Balance and Reactions Static Sitting Balance Ability Good Dynamic Sitting Balance Ability Fair Standing Balance and Reactions Static Standing Balance Ability Poor Dynamic Standing Balance Ability Poor Device Used FWW M5 PT-IP Objective Assessments Start: 12/06/19 12:35 Freq: Status: Active Protocol: Document 12/06/19 12:36 MB (Rec: 12/06/19 13:05 MB [id number]) Orientation Orientation/Cognition Level of Alertness Alert Orientation Name,Age,Birthday,Month,Date, Year,Day of Week,Place, Situation Language Function Ability No Deficits Noted Safety Awareness Decreased Safety Awareness Comments Pt tends to reach for grab bar , does not reach back for bed to sit despite multiple cues to do so. Gross Range of Motion Upper Extremity ROM Impairments Decreased end-range B shoulder flexion, mildly greater on the right Lower Extremity ROM Impairments Functionally drags right foot with gait. She cannot tolerate hip flexion and full knee flexion and extension in supine d/t pain B Strength Upper Extremity Strength Assessment Bilaterally Impaired Shoulder Flexion right 3-/5; left 3/5 Elbow Flexion right 3-/5; left 3/5 Hand Right immigration specialist weaker than the left, pt states is not normal Lower Extremity Strength Assessment Bilaterally Impaired Hip Pt cannot tolerate MMT d/t pain, functionally weaker on the right with gait Knee As above Ankle B DF 5/5; right PF 4/5; left PF 5/5. Comments Strength Comments Right LE weakness with gait, once getting up from toilet, her right leg gives way and she requires heavy +2 asst for transfer to w/c Sensation Assessment Sensation Proprioception (Position) Impaired Comments Sensation Comments Impaired proprioception right toes M6 PT-IP Treatment Start: 12/06/19 12:35 Freq: Status: Active Protocol: Document 12/10/19 14:30 CLB (Rec: 12/10/19 15:14 CLB [id number]) Physical Therapy Treatment Exercises Exercises Ankle Pumps,Gluteal Sets,Quad Sets,Straight Leg Raises, Supine Hip Abduction,Seated Knee Flexion/Extension Other Treatments Other Treatment Performed seated marches. M7 PT-IP Assessment and Plan Start: 12/06/19 12:35 Freq: Status: Active Protocol: Document 12/10/19 14:30 CLB (Rec: 12/10/19 15:14 CLB [id number]) PT Summary Assessment and Plan Potential Rehabilitation Potential Fair Summary Impairments Pain,ROM,Strength,Balance, Sensation,Bed Mobility, Transfers,Gait,Activity Tolerance Assessment Summary Pt requires Min A for sit<> stand and Min A for gait training. During ambulation pt requires cues for step sequencing with bg/toe and mm activation as well as keep walker close for safety. Pt with increased left knee pain was unable to perform further gait or standing marches this session. Goals Bed Mobility Goal Independent Transfer Goal Independent Gait Goal Contact Guard Assistance Gait Distance 50 with RW Frequency of Treatment Frequency Of Treatment Twice a Day Treatment Plan Physical Therapy Treatment Plan Bed Mobility Training,Transfer Training,Gait Training, Therapeutic Exercise,Balance Retraining,Discharge Planning, Hot or Cold Pack,Neuromuscular Re-ed,Coordination Retraining Recommendations To Nursing Amount of Assist Needed 1 Person Assist Discharge Recommendations Other Discharge Recommendations 24 hour asst and PT at d/c, PT recommends Inpatient Rehabilitation disposition location for up to 3 hours of therapy (divided up) a day. Pt was able to ambulate with walker and has support at home
--- NOTE | 2019-12-10 14:42 | PC.NURSE ---
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
[2019-12-10] MEDS: MELATONIN 3 MG TABLET 6 MG PO (21:53)
[2019-12-11 04:17] VITALS: BP 150/77; PULSE 82; RESP 18; TEMP 36.4; O2SAT 98
[2019-12-11] MEDS: TRAMADOL 50 MG TABLET PO ×2 (05:58→12:20)
--- NOTE | 2019-12-11 06:18 | PC.NURSE ---
Pt doing well. Left knee pain rated around 4-5 out of 10, relieved with scheduled tramadol. Voiding in bathroom. Vitals stable Tele: NSR/ST
[2019-12-11 08:00] VITALS: BP 140/69; PULSE 92; RESP 16; TEMP 36.3; O2SAT 97
[2019-12-11] MEDS: POTASSIUM CHLORIDE 20 MEQ TAB PO (08:20)
[2019-12-11] MEDS: METFORMIN HCL 500 MG TABLET 1000 MG PO (08:20)
[2019-12-11] MEDS: ATORVASTATIN 20 MG TABLET 40 MG PO (08:20)
[2019-12-11] MEDS: AMLODIPINE 5 MG TABLET 10 MG PO (08:20)
[2019-12-11] MEDS: ASPIRIN 325 MG TABLET PO (08:20)
[2019-12-11] MEDS: CHOLECALCIFEROL (VITAMIN D3) 1,000 UNIT TABLET 1000 UNIT PO (08:20)
[2019-12-11] MEDS: lisinopriL 20 MG TABLET PO (08:21)
[2019-12-11] MEDS: MAGNESIUM CHLORIDE 64 MG TABLET PO (08:23)
[2019-12-11] MEDS: estradioL 0.5 MG TABLET PO (08:24)
[2019-12-11] MEDS: DICLOFENAC MISOPROSTOL 1 EACH PO (08:24)
--- NOTE | 2019-12-11 08:36 | P.DS_ITS ---
History of Present Illness History of Present Illness Date Patient Seen: 12/11/19 Time Patient Seen: 08:38 Chief complaint: Right leg weakness Narrative: Patient went to bed last at his usual time. She normally sleeps in her recliner chair because of her back pain she has back pain when she lays in her bed. So he she typically sleeps in her recliner. She got this morning to walk. She normally uses a walker to ambulate because of she has a bad knee that was going to be operated on. She went to get up out of the chair and she noticed her right leg was weak and did not seem to cooperate. Needed help from her but she slipped and fell back and hit the chair. No major injuries however. She fell down to the floor. Unable to get back up. Paramedics were called.. Since she has not noticed any significant improvement of the right leg. Patient was evaluated in the emergency room and felt to have right leg weakness. Primarily through the assessment the physical therapist people apparently physical therapy people have been seeing her on a regular basis for her knee and they felt that she had significant weakness of the right leg and will be would be unable to manage at home. [place] the if the admission further physical therapy evaluation and treatment would be appropriate. Patient had apparently said chronic back pain. She has had back surgery of perhaps 10 years ago with a herniated disc. She has apparently has significant degenerative joint disease based on her description.. She takes Arthrotec which a combination of diclofenac and misoprostol and that seems to be adequate.. S stated she was being evaluated for left knee surgery. But was found to have elevated blood pressure and this was placed on hold for the time being.Patient went to bed last at his usual time. She normally sleeps in her recliner chair because of her back pain she has back pain when she lays in her bed. So he she typically sleeps in her recliner. She got this morning to walk. She normally uses a walker to ambulate because of she has a bad knee that was going to be operated on. She went to get up out of the chair and she noticed her right leg was weak and did not seem to cooperate. Needed help from her but she slipped and fell back and hit the chair. No major injuries however. She fell down to the floor. Unable to get back up. Paramedics were called.. Since she has not noticed any significant improvement of the right leg. Patient was evaluated in the emergency room and felt to have right leg weakness. Primarily through the assessment the physical therapist people apparently physical therapy people have been seeing her on a regular basis for her knee and they felt that she had significant weakness of the right leg and will be would be unable to manage at home. [place] the if the admission further physical therapy evaluation and treatment would be appropriate. Patient had apparently said chronic back pain. She has had back surgery of perhaps 10 years ago with a herniated disc. She has apparently has significant degenerative joint disease based on her description.. She takes Arthrotec which a combination of diclofenac and misoprostol and that seems to be adequate.. S stated she was being evaluated for left knee surgery. But was found to have elevated blood pressure and this was placed on hold for the time being. {from Dr. Leo's H&P 12/06/2019} Discharge Providers Provider Date of admission: 12/06/19 14:02 Discharge Date: 12/11/19 Primary care physician: Noah Jorgensen MD Consults: 12/06/19 10:18 Consult to Physical Therapy Evaluate & Treat Comment: ambulate with walker Physician Instructions: Evaluate and Treat 12/06/19 14:15 Consult to Occupational Therapy Evaluate & Treat Comment: Physician Instructions: Evaluate and treat 12/06/19 14:16 Consult to Discharge Planning Routine Comment: hh 12/07/19 17:25 Consult to Discharge Planning Routine Comment: Inpt Rehab v. SNF? 12/08/19 12:54 Consult to Speech Therapy Evaluate & Treat Comment: REDIPPER for assessment/cognitive focus, per PT/recomme Physician Instructions: Evaluate and treat Discharge provider: Noah Jorgensen MD Summary Hospital Course Discharge Diagnosis: 1. Acute CVA with right leg weakness 2. Chronic renal failure stage 2 3. Essential hypertension 4. Type 2 diabetes not on insulin 5. Hyperlipidemia 6. Asthma Hospital Course: Patient presented to the hospital with right leg weakness. She was evaluated and found by MRI imaging to have evidence of small-vessel CVA is bilaterally. They both felt to be acute/subacute. This raise concern regarding possible embolic phenomenon however echocardiogram was unremarkable she remained in sinus rhythm during the duration of her time in the hospital and no other vascular disease was noted on either her MR angiography or her carotid ultrasound. Therefore was felt as though these were likely related to her severe hypertension and or her diabetes She worked with physical therapy was improving and was felt strongly to benefit from inpatient rehab. There was some significant delay on the part of patient's insurance company improving this post hospitalization care, but once this was approve she was discharged to inpatient rehab. Blood pressure was well controlled or least adequately controlled during this hospitalization Blood sugar was adequately controlled during this hospitalization Patient will have her lipid lowering therapy increased to high-intensity statin therapy given this event and her diabetes Status at Discharge Cognitive/behavioral status at discharge: at baseline, oriented Functional status at discharge: uses cane/walker Overall status at discharge: patient is progressing back to baseline Time Spent with Patient Time spent: Greater than 30 minutes Exam Vital Signs (past 8 hours): - 12/11/19 04:17 Temperature 97.6 F Pulse Rate 82 Respiratory Rate 18 Blood Pressure 150/77 H Pulse Oximetry 98 Oxygen Delivery Method Room Air Oxygen Flow Rate 0 Objective Labs Result Diagrams: 12/06/19 08:30 12/10/19 04:50 Discharge Plan Discharge Plan Patient Disposition: Released, Other Other facility: [facility] Discharge orders & Medications Discharge Orders: Discharge (Order); Ordered 12/11/19 Ordered By: Noah Jorgensen Prescriptions: New atorvastatin 40 mg tablet 40 mg PO DAILY Qty: 90 RF: 3 aspirin 325 mg Tablet 325 mg PO DAILY Qty: 90 RF: 0 Continued cyanocobalamin (vitamin B-12) 1,000 mcg capsule 1,000 mcg PO DAILY RF: 0 albuterol sulfate [Proventil HFA] 90 MCG/PUFF HFA aerosol inhaler 0.09 mg IH PRN Qty: 0 RF: 0 montelukast [Singulair] 10 MG tablet 10 mg PO QDAY Qty: 0 RF: 0 VITAMIN D (Vitamin D3) 1,000 unit PO QDAY Qty: 0 RF: 0 Multivitamin, Minerals, and (#CENTRUM SILVER) 1 tab PO Q DAY Qty: 0 RF: 0 [tumeric] 1,000 mg PO QDAY Qty: 0 RF: 0 estradiol 0.5 mg tablet 0.5 mg PO QDAY Qty: 90 RF: 3 glipizide [Glucotrol XL] 2.5 mg tablet extended release 24hr 2.5 mg PO BID Qty: 180 RF: 0 metformin [Glucophage] 1,000 mg tablet 1,000 mg PO BIDCC Qty: 180 RF: 0 tramadol 50 mg tablet 50 mg PO Q6H Qty: 30 RF: 0 Pulmicort Flexhaler 180 mcg/actuation aerosol powdr breath activated 180 mcg inhalation BIDRT Qty: 1 RF: 3 lisinopril 10 mg tablet See Rx Instructions .ROUTE .COMPLEX Qty: 360 RF: 1 amlodipine 10 mg tablet 10 mg PO DAILY Qty: 90 RF: 3 diclofenac-misoprostol [Arthrotec 75] 75-200 mg-mcg tablet,IR,delayed rel,biphasic 1 tab PO DAILY RF: 0 Discontinued diclofenac-misoprostol 75-200 mg-mcg tablet,IR,delayed rel,biphasic See Rx Instructions .ROUTE .COMPLEX Qty: 90 RF: 0 atorvastatin 20 mg tablet 20 mg PO DAILY Qty: 90 RF: 0 Follow up/Referrals: Noah Jorgensen MD [Primary Care Provider] - 2 Weeks Discharge Health Status Multidrug resistant organism: No MDRO Precautions: [place] Diet/Activity/Treatments Diet: Carb-consistent/Diabetic Special Rehabilitation Services Reason for rehabilitation: Therapy following stroke Rehab type: Physical therapy and Occupational therapy Discharge Data Primary Care Provider: Noah Jorgensen Discharges patient from system. Discharge Date/Time: 12/11/19 14:50
--- NOTE | 2019-12-11 09:10 | CM.DPC ---
Addendum entered by Usha Aldana R.N. 12/11/19 13:17: BRINA/Rn heard back from [facility] at [facility]. They can accept patient today for admission. Brina/RN faxed over D/C summary and MAR to [phone] and gave the patients nurse the report number [phone]. CM/RN talked with patient and informed her and her that she was accepted to [facility] inpatient rehab. They will take their own vehicle to the hospital. Patient is being D/C in about an hour and will head directly to [place] at that time. Brina/Rn called Daniel back and let him know that patient should be arriving to them at around 4pm today. CUSTOMER SERVICE COORDINATOR prepped D/C packet for patient to bring with her to inpatient rehab. CM/RN let patients nurse and charge nurse know of acceptance to inpatient rehab facility. Usha Aldana RN Original Note: DCP Continued: EMR reviewed: BRINA/RN called [facility] to check on authorization for [place] inpatient acute Rehab. [facility] just assigned the referral to a skilled nursing case manager. Brina/RN called [place] [facility] [facility] at [phone] and spoke with Daniel. He stated they had received insurance Authorization this morning. Daniel asked BRINA/RN to fax most recent PT,OT speech and progress notes to [phone] to get final approval for admission acceptance from [facility] acute rehab. CM/RN faxed updated clinicals for review. BRINA/RN will call Daniel at [facility] back around noon today to check on status of admission for patient. Usha Aldana RN.
[2019-12-11] MEDS: BUDESONIDE 90mcg FLEXHALER (60 PUFF/DEVICE) INH (09:15)
--- NOTE | 2019-12-11 09:53 | PT.IPTN ---
Current Diagnoses Cerebral infarction due to embolism of unspecified cerebral artery (12/06/19) Physical Therapy Treatment Note M2 PT-IP Current Condition Start: 12/06/19 12:35 Freq: Status: Active Protocol: Document 12/06/19 12:36 MB (Rec: 12/06/19 13:05 MB [id number]) Physical Therapy Current Condition Current Condition Evaluation Date 12/06/19 Treatment Diagnosis R sided weakness, greater in right leg Onset Date 12/06/2019 M3 PT-IP Subjective Start: 12/06/19 12:35 Freq: Status: Active Protocol: Document 12/11/19 09:41 AW (Rec: 12/11/19 09:53 AW [id number]) Subjective Physical Therapy Visit Type Type Treatment Note Visit Start Time 09:09 Visit Stop Time 09:38 Total Visit Minutes 29 Number of BULL FIDDLE PLAYER Visits 0 Physical Therapy Visit Comments Patient Comments Pt is willing to work w/ therapy. Therapy Pain Assessment Pain When Pain Assessed During Mobility Pain Present Pain Present Pain Reported Location Left Knee Pain Behaviors Guarding,Wincing Pain Management Techniques Distraction,Re-positioning M4 PT-IP Mobility and Gait Start: 12/06/19 12:35 Freq: Status: Active Protocol: Document 12/11/19 09:41 AW (Rec: 12/11/19 09:53 AW [id number]) PT-Transfer Assessment Sit to and From Stand Sit to and from Stand Minimal Assistance,1 Person Assistance,Use of Upper Extremities Equipment Transfer Assistive Device Gait Belt,Front Wheeled Walker Transfers Transfer Destination Chair Transfer Technique ambulation w/FWW Transfer Ability Level of Assist Minimal Assistance,1 Person Assistance,Use of Upper Extremities Comments Mobility Comments Pt in chair finishing breakfast upon therapist arrival. She completed sit to stand min A x 1 using FWW. Pt sat in chair again CGA and cues to use BUE to slow descent while PT adjusted walker height. Pt stood again min A and agreed to ambulate in the halls. BP in sitting was 136/79 and HR 89 prior to activity. Gait Assessment Gait Gait Assistance Required: Contact Guard Assist,Minimum Assistance,1 Person Assist Distance (Feet) 90 Able to Maintain Weight Bearing Status Yes During Gait Assistive Devices Assistive Device Gait Belt,Front Wheeled Walker Gait Deviations General Gait Pattern Antalgic,Decreased Stride Length,Decreased Feet Clearance,Flexed Trunk,Lateral Trunk Lean,Step-to Gait Factors Limiting Gait Function Factors Limiting Gait Function Decreased Activity Tolerance, Decreased Strength, Incoordination,Poor Balance, Poor Safety Awareness Comments Gait Comments Pt able to ambulate ~90 feet on level tile surface using FWW CGA to min A. She required verbal cues and visual demonstration to correct flat foot at initial contact (R more affected than L) which she was able to correct for ~5 strides before reverting to foot drop. Pt also required cues to avoid letting the walker get too far in front of her for safety. Pt demonstrates increased right lateral lean as she fatigues as well. PT-Balance Assessment Sitting Balance and Reactions Static Sitting Balance Ability Good Dynamic Sitting Balance Ability Fair Standing Balance and Reactions Static Standing Balance Ability Poor Dynamic Standing Balance Ability Poor Device Used FWW M5 PT-IP Objective Assessments Start: 12/06/19 12:35 Freq: Status: Active Protocol: Document 12/06/19 12:36 MB (Rec: 12/06/19 13:05 MB [id number]) Orientation Orientation/Cognition Level of Alertness Alert Orientation Name,Age,Birthday,Month,Date, Year,Day of Week,Place, Situation Language Function Ability No Deficits Noted Safety Awareness Decreased Safety Awareness Comments Pt tends to reach for grab bar , does not reach back for bed to sit despite multiple cues to do so. Gross Range of Motion Upper Extremity ROM Impairments Decreased end-range B shoulder flexion, mildly greater on the right Lower Extremity ROM Impairments Functionally drags right foot with gait. She cannot tolerate hip flexion and full knee flexion and extension in supine d/t pain B Strength Upper Extremity Strength Assessment Bilaterally Impaired Shoulder Flexion right 3-/5; left 3/5 Elbow Flexion right 3-/5; left 3/5 Hand Right chrome worker weaker than the left, pt states is not normal Lower Extremity Strength Assessment Bilaterally Impaired Hip Pt cannot tolerate MMT d/t pain, functionally weaker on the right with gait Knee As above Ankle B DF 5/5; right PF 4/5; left PF 5/5. Comments Strength Comments Right LE weakness with gait, once getting up from toilet, her right leg gives way and she requires heavy +2 asst for transfer to w/c Sensation Assessment Sensation Proprioception (Position) Impaired Comments Sensation Comments Impaired proprioception right toes M6 PT-IP Treatment Start: 12/06/19 12:35 Freq: Status: Active Protocol: Document 12/11/19 09:41 AW (Rec: 12/11/19 09:53 AW [id number]) Physical Therapy Treatment Education Education Provided Safety Other Treatments Other Treatment Performed seated marches, long-arc quads , standing marches with emphasis on ankle DF M7 PT-IP Assessment and Plan Start: 12/06/19 12:35 Freq: Status: Active Protocol: Document 12/11/19 09:41 AW (Rec: 12/11/19 09:53 AW [id number]) PT Summary Assessment and Plan Potential Rehabilitation Potential Good Summary Impairments Pain,ROM,Strength,Balance, Sensation,Bed Mobility, Transfers,Gait,Activity Tolerance Progress Towards Goals Progressing Toward Goals,Slow Progress due to Activity Tolerance Assessment Summary Pt required min A for sit to stand and up to min A for ambulation with FWW. Pt is able to focus on right lateral lean or clearing her feet or heel-toe gait, but has difficulty focusing on more than one item of feedback at a time. Goals Bed Mobility Goal Independent Transfer Goal Independent Gait Goal Contact Guard Assistance Gait Distance 50 with RW Days to Meet Goals 10 Frequency of Treatment Frequency Of Treatment Twice a Day Treatment Plan Physical Therapy Treatment Plan Bed Mobility Training,Transfer Training,Gait Training, Therapeutic Exercise,Balance Retraining,Discharge Planning, Hot or Cold Pack,Neuromuscular Re-ed,Coordination Retraining Recommendations To Nursing Amount of Assist Needed 1 Person Assist Discharge Recommendations PT Discharge Recommendations SNF Rehab,Acute Rehab Other Discharge Recommendations Pt will require 24/7 assist with all mobility and would benefit from acute rehab vs SNF rehab Equipment Needed for Home Before defer to rehab setting Discharge
--- NOTE | 2019-12-11 12:13 | ST.OPTN ---
Visit Care Team Role Provider Type Alyssa Bonner DO Family Provider Physician Address: [address] [place] [address], [address], [address] Noah Brito MD Emergency Provider Physician Address: [address] [place] [address], [id number] Noah Jorgensen MD Attending Provider Physician Primary Care Provider Address: [address] [place] [address], [address], [address] Gonzalo Leo MD Admit Provider Physician Other Providers Address: [address] [place] [address], [id number] EXTERMINATION INSPECTOR Treatment Note EXTERMINATION INSPECTOR Treatment Note Start: 12/11/19 11:58 Freq: Status: Active Protocol: Document 12/11/19 12:00 LNK (Rec: 12/11/19 12:13 LNK [id number]) Speech Pathology Treatment Note Session Time Visit Start Time 11:00 Visit Stop Time 11:35 Total Visit Minutes 35 Setting Treatment Setting Acute Care Visit Type Note Type Treatment Note General Information General Information Patient admitted for CVA, specifically 3 small foci of acute or subacute ischemic injury to right frontal and left deep white matter tracts, without mass effect or associated hemorrhage. She is being seen by PT and OT and has been evaluated for cognition due to subtle observations of difficulty with memory and problem solving. Subjective Identification Type Name Observations/Patient Presentation Pt was seated at bedside watching TV. She was agreeable to therapy. Chief Complaint(s) Cognitive Patient Knowledge/Awareness of EXTERMINATION INSPECTOR Role Good in Treatment Objective Short Term Goals Pt will recall events within the last 24 hours without assistance Pt will be able to sequence steps for ADLs with minimal assistance Treatment Activities Pt indicated that she felt her memory has improved over the weekend. She was able to recall her discussion with her (on the phone) describing the shirts she wanted him to bring. She described the events of her CVA, with good detail and she described her site of lesion accurately. RT stopped by for a short time during the session. After 15 minutes, pt was able to remember that RT came by and that her uniform was brown. Pt is awaiting word on her acceptance to acute rehab at [facility]. Assessment Patient Response to Treatment Excellent Rehab Potential Excellent Impairments Identified Cognitive-Linguistic Skills, Memory - Working Assessment of Overall Progress Improving Patient/Caregiver Understanding Excellent
[2019-12-11] MEDS: SODIUM CHLORIDE 0.9% FLUSH 10 ML IV (12:20)
[2019-12-11 12:30] VITALS: BP 125/75; PULSE 88; RESP 16; TEMP 36.3; O2SAT 97
--- NOTE | 2019-12-11 12:35 | PC.NURSE ---
A&O X4; communication clear and appropriate; mild weakness to RLE; some difficulty writing; ls clear, RA; HRR; chronic pain to LLE r/t arthritis, PO Tramadol, as scheduled; pt denies nausea, eating, drinking and using bathroom with 1-asst and fww; in room; pt awaiting transfer to [place]; NO IV access, at this time, pt will notify MD if patient is not transferred soon
--- NOTE | 2019-12-11 13:00 | PT.IPTN ---
Current Diagnoses Cerebral infarction due to embolism of unspecified cerebral artery (12/06/19) Physical Therapy Treatment Note M2 PT-IP Current Condition Start: 12/06/19 12:35 Freq: Status: Active Protocol: Document 12/06/19 12:36 MB (Rec: 12/06/19 13:05 MB [id number]) Physical Therapy Current Condition Current Condition Evaluation Date 12/06/19 Treatment Diagnosis R sided weakness, greater in right leg Onset Date 12/06/2019 M3 PT-IP Subjective Start: 12/06/19 12:35 Freq: Status: Active Protocol: Document 12/11/19 13:00 CLB (Rec: 12/11/19 14:20 CLB [id number]) Subjective Physical Therapy Visit Type Type Treatment Note Visit Start Time 13:00 Visit Stop Time 13:26 Total Visit Minutes 26 Number of LOIN PULLER Visits 1 Physical Therapy Visit Comments Patient Comments Pt is willing to work w/ therapy. Therapy Pain Assessment Pain When Pain Assessed During Mobility Pain Present Pain Present Pain Reported Location Left Knee Pain Behaviors Guarding,[place] Pain Management Techniques Distraction,Re-positioning M4 PT-IP Mobility and Gait Start: 12/06/19 12:35 Freq: Status: Active Protocol: Document 12/11/19 13:00 CLB (Rec: 12/11/19 14:20 CLB [id number]) PT-Transfer Assessment Sit to and From Stand Sit to and from Stand Minimal Assistance,1 Person Assistance,Use of Upper Extremities Equipment Transfer Assistive Device Gait Belt,Front Wheeled Walker Transfers Transfer Destination Chair Transfer Technique ambulation w/FWW Transfer Ability Level of Assist Minimal Assistance,1 Person Assistance,Use of Upper Extremities Comments Mobility Comments Pt in chair upon arrival willing to work with therapy. Pt required Min A for sit- stand from chair. Pt ambulated ~70ft requiring cues to perform step to gait pattern when fatigue for energy conservation. Pt required CGA for stand-sit with cues for hand placement to slow descent . Pt performed seated ther ex. Pt left in chair with chair alarm on, call light and all other needs within reach. Gait Assessment Gait Gait Assistance Required: Contact Guard Assist,Minimum Assistance,1 Person Assist Distance (Feet) 70 Able to Maintain Weight Bearing Status Yes During Gait Assistive Devices Assistive Device Gait Belt,Front Wheeled Walker Gait Deviations General Gait Pattern Antalgic,Decreased Stride Length,Decreased Feet Clearance,Flexed Trunk,Lateral Trunk Lean,Step-to Gait Factors Limiting Gait Function Factors Limiting Gait Function Decreased Activity Tolerance, Decreased Strength, Incoordination,Poor Balance, Poor Safety Awareness Comments Gait Comments see mobility comments PT-Balance Assessment Sitting Balance and Reactions Static Sitting Balance Ability Good Dynamic Sitting Balance Ability Fair Standing Balance and Reactions Static Standing Balance Ability Poor Dynamic Standing Balance Ability Poor Device Used FWW M5 PT-IP Objective Assessments Start: 12/06/19 12:35 Freq: Status: Active Protocol: Document 12/06/19 12:36 MB (Rec: 12/06/19 13:05 MB [id number]) Orientation Orientation/Cognition Level of Alertness Alert Orientation Name,Age,Birthday,Month,Date, Year,Day of Week,Place, Situation Language Function Ability No Deficits Noted Safety Awareness Decreased Safety Awareness Comments Pt tends to reach for grab bar , does not reach back for bed to sit despite multiple cues to do so. Gross Range of Motion Upper Extremity ROM Impairments Decreased end-range B shoulder flexion, mildly greater on the right Lower Extremity ROM Impairments Functionally drags right foot with gait. She cannot tolerate hip flexion and full knee flexion and extension in supine d/t pain B Strength Upper Extremity Strength Assessment Bilaterally Impaired Shoulder Flexion right 3-/5; left 3/5 Elbow Flexion right 3-/5; left 3/5 Hand Right index editor weaker than the left, pt states is not normal Lower Extremity Strength Assessment Bilaterally Impaired Hip Pt cannot tolerate MMT d/t pain, functionally weaker on the right with gait Knee As above Ankle B DF 5/5; right PF 4/5; left PF 5/5. Comments Strength Comments Right LE weakness with gait, once getting up from toilet, her right leg gives way and she requires heavy +2 asst for transfer to w/c Sensation Assessment Sensation Proprioception (Position) Impaired Comments Sensation Comments Impaired proprioception right toes M6 PT-IP Treatment Start: 12/06/19 12:35 Freq: Status: Active Protocol: Document 12/11/19 13:00 CLB (Rec: 12/11/19 14:20 CLB [id number]) Physical Therapy Treatment Exercises Exercises Ankle Pumps,Gluteal Sets,Quad Sets,Straight Leg Raises, Supine Hip Abduction,Seated Knee Flexion/Extension Education Education Provided Safety Other Treatments Other Treatment Performed seated marches, standing marches. M7 PT-IP Assessment and Plan Start: 01/29/20 12:35 Freq: Status: Active Protocol: Document 12/11/19 13:00 CLB (Rec: 12/11/19 14:20 CLB [id number]) PT Summary Assessment and Plan Potential Rehabilitation Potential Good Summary Impairments Pain,ROM,Strength,Balance, Sensation,Bed Mobility, Transfers,Gait,Activity Tolerance Progress Towards Goals Progressing Toward Goals,Slow Progress due to Activity Tolerance Assessment Summary Pt required Min A for sit to stand and cues for hand placement to slow descent during stand-sit. Pt required CGA-Min A for ambulation with cues for step to gait pattern when fatigued. Goals Bed Mobility Goal Independent Transfer Goal Independent Gait Goal Contact Guard Assistance Gait Distance 50 with RW Days to Meet Goals 10 Frequency of Treatment Frequency Of Treatment Twice a Day Treatment Plan Physical Therapy Treatment Plan Bed Mobility Training,Transfer Training,Gait Training, Therapeutic Exercise,Balance Retraining,Discharge Planning, Hot or Cold Pack,Neuromuscular Re-ed,Coordination Retraining Recommendations To Nursing Amount of Assist Needed 1 Person Assist Discharge Recommendations PT Discharge Recommendations SNF Rehab,Acute Rehab Other Discharge Recommendations Pt will require 24/7 assist with all mobility and would benefit from acute rehab vs SNF rehab Equipment Needed for Home Before defer to rehab setting Discharge
--- NOTE | 2019-12-11 14:31 | OT.IP.TRT ---
Current Diagnoses Cerebral infarction due to embolism of unspecified cerebral artery (12/06/19) Occupational Therapy Treatment Note M2 OT-IP Current Condition Start: 12/07/19 16:49 Freq: Status: Active Protocol: Document 12/07/19 16:43 PJM (Rec: 12/07/19 17:14 PJM [id number]) Occupational Therapy Current Condition Current Condition Evaluation Date 12/07/19 Treatment Diagnosis decreased self care, mobility with Dx: stroke, R frontal, L periventricular Diagnosis Onset Date 12/06/19 Post Operative Precautions Other Precautions RLE weakness, painful L knee, fall risk M3 OT- IP Subjective and Pain Start: 12/07/19 16:49 Freq: Status: Active Protocol: Document 12/11/19 14:37 CCC (Rec: 12/11/19 14:49 [facility] [id number]) OT- Subjective Occupational Therapy Visit Type Type Treatment Note Visit Start Time 10:48 Visit Stop Time 14:14 Total Visit Minutes 33 Notes Split treatment 2232-2362, and 1414 - 1431. Occupational Therapy Visit Comments Patient Comments Pt wanting to shower after lunch when he comes bcak and getting her clothing. Patient/Caregiver Goals To get back to normal. OT Pain Assessment Pain When Pain Assessed At Rest Pain Present Pain Present Denied Pain M4 OT- IP ADL's Start: 12/07/19 16:49 Freq: Status: Active Protocol: Document 12/11/19 14:37 CCC (Rec: 12/11/19 14:49 [facility] [id number]) OT [id number]-[id number] General Evaluation Self-Feeding Ability Independent Comments OT Self-Feeding Comments Pt needing assist to open film out of pudding container. OT ADL-Grooming General Evaluation Grooming Ability Independent Comments OT Grooming Comments While sitting in recliner. OT ADL-Dressing General Eval Lower Body Dressing Ability Minimal Assistance Areas Needing Assistance Pants/Shorts,Socks Comments OT Dressing Comments Assist to doff over right foot and assist to artur right LE into the pants leg and CGA while standing so pt able to pull up pants over her hips. Educated to artur right side first and then left LE due to weakness of RLE. OT ADL-Toileting Comments OT Toileting Comments did not occur this session OT ADL-Bathing Comments OT Bathing Comments Pt being discharged and therefore unable to complete showering. M5 OT- IP IADL's Start: 12/07/19 16:49 Freq: Status: Active Protocol: Document 12/07/19 16:43 PJM (Rec: 12/07/19 17:14 PJM [id number]) OT-Instrumental Activities of Daily Living Deficits IADL Deficits Identified Deficits Home Safety Awareness Awareness of Need for Assistance at Home Good Awareness Medication Management Medication Management No Deficits Identified Money Management Money Management No Deficits Identified Meal Preparation Meal Preparation Caregiver Provides Assist Meal Preparation Comments has been doing all IADLS due to pt's L knee pain Saw Grinder Saw Grinder Caregiver Provides Assist Saw Grinder Comments has been doing all IADLS due to pt's L knee pain Driving Driving Caregiver Provides Assist Driving Comments to provide assist until pt able; recommend no driving at present due to RLE weakness M6 OT- IP Functional Cognition Start: 12/07/19 16:49 Freq: Status: Active Protocol: Document 12/11/19 14:37 [facility] (Rec: 12/11/19 14:49 [facility] [id number]) Cognitive Factors Limiting Selfcare Function Cognitive Ability Level of Alertness Alert Patient Orientation Name,Age,Birthday,Month,Date, Year,Day of Week,Place, Situation Attention Span Ability Capable of Focused Attention, Capable of Sustained Attention Ability to Follow Commands Able to Follow One Step Commands Memory Description Short Term Impaired Safety Awareness Underestimates Need for Assistance Cognitive Comments Cognitive Assessment Comments Pt scored 107 seconds on [place] Making B which implies moderate deficits with mental flexibility, visual attention, executive thinking and speed of processing. Pt aware now that best not to drive at this time, in addition pt having RLE weakness and therefore possible decreased reaction braking time due to recent CVA . Pt needing cues to focus on one thing at a time. Pt trying to stand and trying to pull up pants at the same time and having lose of balance, versus focusing on standing first and then pulling up pants over her hips. Pt forgot and slipped on her shoes on versus getting her feet into the pants first and then getting her shoes on. Pt able to self correct her mistake. M7 OT- IP Mobility and Balance Start: 12/07/19 16:49 Freq: Status: Active Protocol: Document 12/11/19 14:37 [facility] (Rec: 12/11/19 14:49 [facility] [id number]) OT-Transfer Assessment Sit to and From Stand Sit to and from Stand Contact Guard Assistance, Minimal Assistance Devices Transfer Assistive Devices Gait Belt,Front Wheeled Walker Comments Mobility Comments Reminders to push up from the armrest to stand from recliner . OT- Balance Assessment Sitting Balance and Reactions Static Sitting Balance Ability Normal Dynamic Sitting Balance Ability Good Standing Balance and Reactions Static Standing Balance Ability Fair M8 OT- IP Objective Assessments Start: 12/07/19 16:49 Freq: Status: Active Protocol: M9 OT- IP Assessment and Plan Start: 12/07/19 16:49 Freq: Status: Active Protocol: Document 12/11/19 14:37 [facility] (Rec: 12/11/19 14:49 [facility] [id number]) OT Summary Assessment and Plan Potential Rehabilitation Potential Good Analytic Complexity at Evaluation Low Summary OT Impairments Strength,Balance,Coordination, Functional Mobility,Grooming, Dressing,Toileting,Bathing, Toilet Transfers,Shower Transfers,Activity Tolerance Progress Towards Goals Progressing Toward Goals Assessment Summary Pt being discharged to acute rehab today. Noted improvements with fine motor skills of handwriting and increased speed of use of hand 9 hole peg test improved by 2 seconds for right hand and . 5 sec for left hand. Pt very motivated to get better. Goals Self-Feeding Goal Independent Grooming Goal Standby Assistance Dressing Goal Standby Assistance,Long Handled Shoe Horn,Tire Buster,Sock Aid Toileting Goal Standby Assistance Bathing Goal Minimal Assistance,Grab Bars, Hand Held Shower Sprayer,Long Handled Sponge or [place] Toilet Transfer Goal Standby Assistance,Raised Toilet Seat,Grab Bars Shower Transfer Goal Contact Guard Assistance,Walk- in Shower,Shower Chair,Grab Bars Patient/Caregiver Education Goal Demonstrate Energy Conservation and Pacing OT-Other Goals Shower Days to Meet Goals 5 Frequency of Treatment Frequency Of Treatment Once a Day Treatment Plan OT Treatment Plan ADL Training,Functional Mobility,Patient/Family Education,Discharge Planning Discharge Recommendations OT Discharge Recommendations Acute Rehab Transportation Needs at Discharge Private Vehicle
== END 2019-12-11 14:50 | disposition other institution (70) | DRG 66 ==
LOC: ED 13:12 → AC 14:03
PROVIDERS: Family Medicine; Admitting Provider Family Medicine; Emergency Provider Emergency Medicine; Family Provider Family Medicine; PCP Internal Medicine; Visit Provider Internal Medicine
DX: I63.40 Cerebral infarction due to embolism of unspecified cerebral artery (principal); G83.11 Monoplegia of lower limb affecting right dominant side; I12.9 Hypertensive chronic kidney disease with stage 1 through stage 4 chronic kidney disease, or unspecified chronic kidney disease; E11.22 Type 2 diabetes mellitus with diabetic chronic kidney disease; N18.2 Chronic kidney disease, stage 2 (mild); G89.29 Other chronic pain; M17.12 Unilateral primary osteoarthritis, left knee; W18.30XA Fall on same level, unspecified, initial encounter; Z79.84 Long term (current) use of oral hypoglycemic drugs
CPT/HCPCS: 36415; 70450; 70544; 70551; 72100; 72148; 72170; 80048; 80053; 81003; 81015; 82550; 82962; 83036; 83735; 84484; 85025; 92523; 93005; 93010; 93306; 93880; 93970; 94640; 94760; 96361; 96374; 97110; 97112; 97116; 97129; 97130; 97162; 97165; 97530; 97535; 99223; 99232; 99233; 99238; 99284; 99285; J0360

== ENCOUNTER → 2020-01-31 10:26 | Outpatient (CLI) | payer MEDICARE, SELFPAY ==
[2019-12-22 09:19] VITALS: BMI 41.2
[2020-01-31 11:38] LABS: Magnesium 1.7 mg/dL (1.6-2.3)
== END ==
PROVIDERS: Family Provider Family Medicine; PCP Internal Medicine; Referring Provider Internal Medicine; Visit Provider Internal Medicine
DX: R00.2 Palpitations (principal)
CPT/HCPCS: 36415; 83735

== ENCOUNTER → 2020-03-29 07:44 | Outpatient (CLI) | payer MEDICARE, SELFPAY ==
[2019-12-22 09:19] VITALS: BMI 41.2
[2020-03-29 09:11] LABS: Alanine Aminotransferase 27 IU/L (<35); Albumin 3.7 g/dL (3.5-5.0); Albumin Globulin Ratio 1.2 (1.0-2.8); Alkaline Phosphatase 70 U/L (38-126); Aspartate Aminotransferase 25 IU/L (14-36); BUN Creatinine Ratio 30.6 (6-22); Bilirubin Total 0.6 mg/dL (0.2-1.3); Blood Urea Nitrogen 26 mg/dL (7-17); Calcium 10.1 mg/dL (8.4-10.2); Carbon Dioxide 31 mmol/L (22-32); Chloride 101 mmol/L (98-107); Cholesterol 151 mg/dL (140-199); Estimated Glomerular Filt Rate > 60.0 mL/min (>60); Glucose 117 mg/dL (80-110); HDL Cholesterol 58 mg/dL (40-60); HEMOLYSIS < 15 (0-50); LDL Cholesterol Calculated 70 mg/dL (<100); Magnesium 1.8 mg/dL (1.6-2.3); Potassium 4.1 mmol/L (3.4-5.1); Sodium 139 mmol/L (137-145); Total Protein 6.7 g/dL (6.3-8.2); Triglycerides 113 mg/dL (35-150)
== END ==
PROVIDERS: Family Provider Family Medicine; PCP Internal Medicine; Referring Provider Internal Medicine; Visit Provider Internal Medicine
DX: R00.2 Palpitations (principal); E11.69 Type 2 diabetes mellitus with other specified complication; E78.5 Hyperlipidemia, unspecified; I10 Essential (primary) hypertension; Z86.73 Personal history of transient ischemic attack (TIA), and cerebral infarction without residual deficits
CPT/HCPCS: 36415; 80053; 80061; 83036; 83735

== ENCOUNTER → 2020-04-04 08:20 | Outpatient (CLI) | payer MEDICARE, SELFPAY ==
[2019-12-22 09:19] VITALS: BMI 41.2
[2020-04-04 08:34] LABS: Appearance Urine UA CLEAR; Bilirubin Urine UA NEGATIVE (NEGATIVE); Color Urine UA YELLOW; Glucose Urine UA NEGATIVE (Negative); Ketones Urine UA NEGATIVE (NEGATIVE); Leukocyte Esterase Urine UA 1+ (NEGATIVE); Nitrite Urine UA POSITIVE (Negative); Occult Blood Urine UA TRACE-LYSED (Negative); Protein Urine UA NEGATIVE (Negative); Specific Gravity Urine UA <=1.005 (1.000-1.035); Urobilinogen Urine UA 0.2 E.U./dL (0.2)
[2020-04-04 09:23] LABS: Bacteria Urine Many (>30); Culture Indicated Urine Specimen Cultured; RBC Urine 0-1/HPF (0-5/HPF); WBC Urine 1-5/HPF (0-5/HPF)
== END ==
PROVIDERS: Family Provider Family Medicine; PCP Internal Medicine; Referring Provider Student in an Organized Health Care Education/Training Program; Visit Provider Student in an Organized Health Care Education/Training Program
DX: R39.89 Other symptoms and signs involving the genitourinary system (principal)
CPT/HCPCS: 81001; 87077; 87086; 87186

== ENCOUNTER 2020-06-05 15:15 | Outpatient (RCR) | payer MEDICARE, SELFPAY ==
[2019-12-22 09:19] VITALS: BMI 41.2
--- NOTE | 2020-04-25 18:08 | PT.OIE ---
Current Diagnoses Cerebral infarction, unspecified (04/25/20) Past Medical History (Last Updated 12/29/19 @ 10:56 by Noah Jorgensen MD) Abnormal EKG (Acute) Carpal tunnel syndrome (Resolved ~2005) Chronic renal failure, stage 2 (mild) (Chronic) Colon polyps (Resolved 02/2007) Degenerative arthritis of left knee (Acute) Diabetes (Chronic Unknown) Fatigue (Acute) Hyperlipemia (Chronic Unknown) Hypertension (Chronic Unknown) Leg swelling (Acute) Low back pain (Chronic ~2015) Osteoarthritis (Chronic Unknown) Status post stroke (Inactive) Unilateral primary osteoarthritis, left knee (Acute) Past Surgical History (Last Reviewed 12/06/19 @ 17:54 by Gonzalo Leo MD) History of knee replacement S/P total abdominal hysterectomy and bilateral salpingo-oophorectomy Status post delivery Visit Care Team Role Provider Type Alyssa Bonner DO Family Provider Non-Staff Specialty: [facility] Practice Address: [address] [place] [address] Email: [email or web address] Noah Jorgensen MD Attending Provider Physician Primary Care Provider Referring Provider Specialty: Internal Medicine Address: [address] [place] [address], [address] Email: [email or web address] Physical Therapy Initial Evaluation PT-OP-A Visit Information Start: 04/25/20 11:48 Freq: Status: Active Protocol: Document 04/25/20 14:34 [facility] (Rec: 04/25/20 14:59 [facility] [id number]) Out-Patient Physical Therapy Visit Information Visit Information Visit Type Initial Evaluation Evaluation Information Evaluation Date 04/25/20 Precautions Precautions left knee pain, can give way. PT-OP-B Current Condition Start: 04/25/20 11:48 Freq: Status: Active Protocol: Document 04/25/20 14:34 SAK (Rec: 04/25/20 14:59 [facility] [id number]) Current Condition History of Current Condition Onset Date 12/06/19 Current Complaints weakness right LE History of Current Condition CVA 12/06/19 affecting right side. Had inpatient rehab at [facility]. Then home health. Prior right TKA 2003. Needs to have left knee surgery, has been put off due to cardiac and CVA issues plus Covid19. Concerned about recovery from a TKA due to right LE weakness. Used FWW prior to CVA due to knee pain. Wants to build up her right leg strength. Recumbant elliptical 30 min at level 8 at home. Feels PT for gait ( likes parallel bars) and leg strengthening most important to her. Can take 3 steps without walker but otherwise too unstable. Prior Treatments and Tests prior PT interrupted by Covid19 Prior Functional Status Baseline Function- ADL's Modified Independent Baseline Function- Mobility Modified Independent Current Functional Impairments (Reported) Functional Limitations- Mobility/Gait Pt requires the use of walker PT-OP-D Balance Start: 04/25/20 11:48 Freq: Status: Active Protocol: Document 04/25/20 14:34 [facility] (Rec: 04/25/20 18:08 [facility] [id number]) OP-PT Balance Assessment Sitting Balance Static Sitting Balance Ability Good Dynamic Sitting Balance Ability Good Tinetti Balance Assessment Sitting Balance Sitting Balance Steady, safe Arising from Chair Ability to Arise Able, uses arms to help Attempts to Arise Arises on 1st attempt Standing Balance Immediate Standing Balance Steady with support Standing Balance Steady, wide stance Nudged Response Staggers, catches self Standing with Eyes Closed Unsteady Turning Step Pattern Turning 360 Degrees Discontinuous steps Stability Turning 360 Degrees Unsteady, grabs/staggers Sitting Down Sitting Down Uses arms or unsteady Gait and Step Initiation of Gait No hesitancy Right Foot Step Length Does not pass stance ft. Right Foot Step Height Does not clear floor Left Foot Step Length Does not pass stance foot Left Foot Step Height Does not clear floor Gait Description Path Description Mild/moderate deviation Trunk Description Marked sway or uses aide Walking Stance Heels apart Scoring and Interpretation Tinetti Composite Score (points) 10 Corey Fall Scale Copyright Permission PT-OP-G Mobility & Gait Start: 04/25/20 11:48 Freq: Status: Active Protocol: Document 04/25/20 14:34 [facility] (Rec: 04/25/20 18:08 [facility] [id number]) OP Gait Assessment Gait Able to Maintain Weight Bearing Status Yes During Gait Assistive Devices Assistive Device Front Wheeled Walker Gait Deviations General Gait Pattern Antalgic,Decreased Stride Length,Decreased Feet Clearance,Flexed Trunk Factors Limiting Gait Function Factors Limiting Gait Function Decreased Strength,Pain PT-OP-M Strength Start: 04/25/20 11:48 Freq: Status: Active Protocol: Document 04/25/20 14:34 [facility] (Rec: 04/25/20 18:08 [facility] [id number]) Hip Strength Hip Manual Muscle Testing Right Flexion (L2) 4- Good- Extension (S1) 3 Fair Abduction 3 Fair Adduction 3+ Fair+ Left Flexion (L2) 4- Good- Extension (S1) 3+ Fair+ Abduction 3+ Fair+ Adduction 4- Good- Knee Strength Knee Manual Muscle Testing Right Flexion (S2) 4- Good- Extension (L3) 4- Good- Left Flexion (S2) 4 Good Extension (L3) 4 Good Comments painful Ankle/Foot Strength Ankle and Foot Manual Muscle Testing Right Dorsiflexion (L4) 4 Good Plantarflexion (S1) 4- Good- Left Dorsiflexion (L4) 4+ Good+ Plantarflexion (S1) 4 Good PT-OP-Q Treatments Start: 04/25/20 11:48 Freq: Status: Active Protocol: Document 04/25/20 14:34 [facility] (Rec: 04/25/20 18:08 [facility] [id number]) Self-Care/Home Management Treatment Education Patient Education Home Exercise Program PT-OP-T Assessment and Plan Start: 04/25/20 11:48 Freq: Status: Active Protocol: Document 04/25/20 14:34 [facility] (Rec: 04/25/20 18:08 [facility] [id number]) Physical Therapy Assessment Rehab Potential Rehabilitation Potential Good Evaluation Complexity Number of Personal Factors/Comorbidities 1-2 Number of Body Systems Impaired 3 Clinical Presentation at Evaluation Evolving Impairments Impairments Activity Tolerance,Gait,Pain, Strength,Transfers Goals Three Impairment fall risk Pit Operator Goal (LTG) Patient score on Tinetti gait and balance assessment will improve from high risk category to low risk to improve her safety in the home and community LTG Duration 06/23/20 Two Impairment gait dysfunction Pit Operator Goal (LTG) Patient will be able to ambulate 200' with the use of a single point cane safely LTG Duration 06/23/20 One Impairment LE weakness Senior Living Goal (LTG) Patient will demonstrate improvement in LE strength to at least 4+/5 for improved LE function and demonstrate independence and compliance to HEP LTG Duration 06/23/20 Assessment Summary Assessment Patient presents with decreased LE strength due to CVA on right and arthritis with anticipated TKA on left. She is at high risk for falls . She would benefit from PT to address the above impairments and help her to function more safely in the home and community Physical Therapy Plan Frequency and Duration Frequency of Treatment 2x/Week Duration of Treatment 8 wks Plan of Care Start Date 04/25/20 Plan of Care End Date 06/24/20 Therapeutic Interventions Therapeutic Interventions Balance Training,Gait Training ,Home Exercise Program, Neuromuscular Re-education, Patient/Caregiver Education, Self-Care/Home Management, Taping,Therapeutic Activities, Therapeutic Exercises Modalities Electric Stimulation,Hot Packs Next Visit Focus/Plan Next Note Type Treatment Note Next Visit Plan Review HEP, progress ther ex as tolerated for strengthening , gait training, and balance.
--- NOTE | 2020-04-25 18:09 | PT.OPPOC ---
Physical, Occupational & Speech Therapy At [facility] Current Diagnoses Cerebral infarction, unspecified (04/25/20) Visit Care Team Role Provider Type Alyssa Bonner DO Family Provider Non-Staff Specialty: Family Practice Address: [address] [place] [address], [address], [address] Email: [email or web address] Noah Jorgensen MD Attending Provider Physician Primary Care Provider Referring Provider Specialty: Internal Medicine Address: [address] [place] [address], [address], [address] Email: [email or web address] Plan Of Care PT-OP-T Assessment and Plan Start: 04/25/20 11:48 Freq: Status: Active Protocol: Document 04/25/20 14:34 SAK (Rec: 04/25/20 18:08 SAK [id number]) Physical Therapy Assessment Rehab Potential Rehabilitation Potential Good Evaluation Complexity Number of Personal Factors/Comorbidities 1-2 Number of Body Systems Impaired 3 Clinical Presentation at Evaluation Evolving Impairments Impairments Activity Tolerance,Gait,Pain, Strength,Transfers Goals Three Impairment fall risk Alf Goal (LTG) Patient score on Tinetti gait and balance assessment will improve from high risk category to low risk to improve her safety in the home and community LTG Duration 06/23/20 Two Impairment gait dysfunction Cd Technician Goal (LTG) Patient will be able to ambulate 200' with the use of a single point cane safely LTG Duration 06/23/20 One Impairment LE weakness Alf Goal (LTG) Patient will demonstrate improvement in LE strength to at least 4+/5 for improved LE function and demonstrate independence and compliance to HEP LTG Duration 06/23/20 Assessment Summary Assessment Patient presents with decreased LE strength due to CVA on right and arthritis with anticipated TKA on left. She is at high risk for falls . She would benefit from PT to address the above impairments and help her to function more safely in the home and community Physical Therapy Plan Frequency and Duration Frequency of Treatment 2x/Week Duration of Treatment 8 wks Plan of Care Start Date 04/25/20 Plan of Care End Date 06/24/20 Therapeutic Interventions Therapeutic Interventions Balance Training,Gait Training ,Home Exercise Program, Neuromuscular Re-education, Patient/Caregiver Education, Self-Care/Home Management, Taping,Therapeutic Activities, Therapeutic Exercises Modalities Electric Stimulation,Hot Packs Next Visit Focus/Plan Next Note Type Treatment Note Next Visit Plan Review HEP, progress ther ex as tolerated for strengthening , gait training, and balance. Plan of Care Dates Plan of Care Start Date 04/25/20 Plan of Care End Date 06/24/20 Electronically Signed by: Sobia Miller, PT 04/25/20 0225 Please Sign and Return: I have reviewed this Plan of Care and certify that the skilled therapy services above are required to meet the patient?s needs. Physician Signature Date Printed Name and Credentials Clinical Instructor Signature Printed Name and Credentials
--- NOTE | 2020-05-02 11:22 | PT.OTN ---
Current Diagnoses Cerebral infarction, unspecified (05/02/20) Physical Therapy Treatment Note PT-OP-A Visit Information Start: 04/25/20 11:48 Freq: Status: Active Protocol: Document 05/02/20 10:35 DCW (Rec: 05/02/20 11:22 DCW [id number]) Out-Patient Physical Therapy Visit Information Visit Information Visit Type Treatment Note Visit Start Time 10:35 Visit Stop Time 11:15 Total Visit Minutes 40 Visit Number 2 Number of MENDING CARRIER Visits 0 Evaluation Information Evaluation Date 04/25/20 Precautions Precautions left knee pain, can give way. PT-OP-B Current Condition Start: 04/25/20 11:48 Freq: Status: Active Protocol: Document 04/25/20 14:34 SAK (Rec: 04/25/20 14:59 SAK [id number]) Current Condition History of Current Condition Onset Date 12/06/19 Current Complaints weakness right LE History of Current Condition CVA 12/06/19 affecting right side. Had inpatient rehab at [facility]. Then home health. Prior right TKA 2003. Needs to have left knee surgery, has been put off due to cardiac and CVA issues plus Covid19. Concerned about recovery from a TKA due to right LE weakness. Used FWW prior to CVA due to knee pain. Wants to build up her right leg strength. Recumbant elliptical 30 min at level 8 at home. Feels PT for gait ( likes parallel bars) and leg strengthening most important to her. Can take 3 steps without walker but otherwise too unstable. Prior Treatments and Tests prior PT interrupted by Covid19 Prior Functional Status Baseline Function- ADL's Modified Independent Baseline Function- Mobility Modified Independent Current Functional Impairments (Reported) Functional Limitations- Mobility/Gait Pt requires the use of walker PT-OP-C Subjective Start: 04/25/20 11:48 Freq: Status: Active Protocol: Document 05/02/20 10:35 DCW (Rec: 05/02/20 11:22 DCW [id number]) OP-PT Subjective Patient Comments Patient Comments Pt reports she wants to focus on right leg strengthening to she is able to have surgery on her left knee. PT-OP-D Balance Start: 04/25/20 11:48 Freq: Status: Active Protocol: Document 04/25/20 14:34 SAK (Rec: 04/25/20 18:08 SAK [id number]) OP-PT Balance Assessment Sitting Balance Static Sitting Balance Ability Good Dynamic Sitting Balance Ability Good Tinetti Balance Assessment Sitting Balance Sitting Balance Steady, safe Arising from Chair Ability to Arise Able, uses arms to help Attempts to Arise Arises on 1st attempt Standing Balance Immediate Standing Balance Steady with support Standing Balance Steady, wide stance Nudged Response Staggers, catches self Standing with Eyes Closed Unsteady Turning Step Pattern Turning 360 Degrees Discontinuous steps Stability Turning 360 Degrees Unsteady, grabs/staggers Sitting Down Sitting Down Uses arms or unsteady Gait and Step Initiation of Gait No hesitancy Right Foot Step Length Does not pass stance ft. Right Foot Step Height Does not clear floor Left Foot Step Length Does not pass stance foot Left Foot Step Height Does not clear floor Gait Description Path Description Mild/moderate deviation Trunk Description Marked sway or uses aide Walking Stance Heels apart Scoring and Interpretation Tinetti Composite Score (points) 10 Corey Fall Scale Copyright Permission PT-OP-G Mobility & Gait Start: 04/25/20 11:48 Freq: Status: Active Protocol: Document 04/25/20 14:34 [facility] (Rec: 04/25/20 18:08 [facility] [id number]) OP Gait Assessment Gait Able to Maintain Weight Bearing Status Yes During Gait Assistive Devices Assistive Device Front Wheeled Walker Gait Deviations General Gait Pattern Antalgic,Decreased Stride Length,Decreased Feet Clearance,Flexed Trunk Factors Limiting Gait Function Factors Limiting Gait Function Decreased Strength,Pain PT-OP-M Strength Start: 04/25/20 11:48 Freq: Status: Active Protocol: Document 04/25/20 14:34 [facility] (Rec: 04/25/20 18:08 [facility] [id number]) Hip Strength Hip Manual Muscle Testing Right Flexion (L2) 4- Good- Extension (S1) 3 Fair Abduction 3 Fair Adduction 3+ Fair+ Left Flexion (L2) 4- Good- Extension (S1) 3+ Fair+ Abduction 3+ Fair+ Adduction 4- Good- Knee Strength Knee Manual Muscle Testing Right Flexion (S2) 4- Good- Extension (L3) 4- Good- Left Flexion (S2) 4 Good Extension (L3) 4 Good Comments painful Ankle/Foot Strength Ankle and Foot Manual Muscle Testing Right Dorsiflexion (L4) 4 Good Plantarflexion (S1) 4- Good- Left Dorsiflexion (L4) 4+ Good+ Plantarflexion (S1) 4 Good PT-OP-Q Treatments Start: 04/25/20 11:48 Freq: Status: Active Protocol: Document 05/02/20 10:35 DCW (Rec: 05/02/20 11:22 DCW [id number]) Cardio Equipment Recumbent Elliptical (Biodex) Duration (Minutes) 5 Resistance 1 Seat Position 10 Therapeutic Exercises Sitting Exercises Hip Adduction Sitting Exercise Name Adductor Ball Squeeze Side bilateral Reps/Minutes 5 hold Long Arc Quad Sitting Exercise Name LAQ Side bilateral Hip Abduction Sitting Exercise Name Abduction Side bilateral Resistance Lv 2 Equipment Used T-band Standing Exercises Hip Abduction Standing Exercise Name Hip Abduction Side bilateral Equipment Used // bars Squats Standing Exercise Name Minisquats Step-ups Standing Exercise Name Step-ups Side bilateral Equipment Used 6 step Other Exercises Resisted Side-stepping Other Exercise Name Resisted side-stepping Resistance Yellow Equipment Used T-band Gait Training Gait Activity SPC training Description Sequencing /c SPC Device Used SPC Level of Assistance SBA in // bars Gait in // bars Description Step-through /c UE support Device Used // bars PT-OP-T Assessment and Plan Start: 04/25/20 11:48 Freq: Status: Active Protocol: Document 05/02/20 10:35 DCW (Rec: 05/02/20 11:22 DCW [id number]) Physical Therapy Assessment Impairments Impairments Activity Tolerance,Gait,Pain, Strength,Transfers Goals Three Impairment fall risk Supervisor Lead [employer]inery Goal (LTG) Patient score on Tinetti gait and balance assessment will improve from high risk category to low risk to improve her safety in the home and community LTG Duration 06/23/20 Two Impairment gait dysfunction Senior Living Goal (LTG) Patient will be able to ambulate 200' with the use of a single point cane safely LTG Duration 06/23/20 One Impairment LE weakness Supervisor [employer] Goal (LTG) Patient will demonstrate improvement in LE strength to at least 4+/5 for improved LE function and demonstrate independence and compliance to HEP LTG Duration 06/23/20 Assessment Summary Assessment Pt insistent on using // bars for gait, able to walk with appropriate step-through, heel -toe pattern with UE support of // bars. Pt also showed good gait with SPC ambulation, but fatigued quickly and required multiple rest breaks. Physical Therapy Plan Frequency and Duration Frequency of Treatment 2x/Week Duration of Treatment 8 wks Plan of Care Start Date 04/25/20 Plan of Care End Date 06/24/20 Therapeutic Interventions Therapeutic Interventions Balance Training,Gait Training ,Home Exercise Program, Neuromuscular Re-education, Patient/Caregiver Education, Self-Care/Home Management, Taping,Therapeutic Activities, Therapeutic Exercises Modalities Electric Stimulation,Hot Packs Next Visit Focus/Plan Next Note Type Treatment Note Next Visit Plan Review HEP, progress ther ex as tolerated for strengthening , gait training, and balance.
--- NOTE | 2020-05-06 16:24 | PT.OTN ---
Current Diagnoses Cerebral infarction, unspecified (05/06/20) Physical Therapy Treatment Note PT-OP-A Visit Information Start: 04/25/20 11:48 Freq: Status: Active Protocol: Document 05/06/20 13:00 SAK (Rec: 05/06/20 16:24 [facility] [id number]) Out-Patient Physical Therapy Visit Information Visit Information Visit Start Time 13:00 Visit Stop Time 13:40 Total Visit Minutes 40 Visit Number 3 Number of TELEPHONE CLERK TELEGRAPH OFFICE Visits 0 Precautions Precautions left knee pain, can give way. PT-OP-B Current Condition Start: 04/25/20 11:48 Freq: Status: Active Protocol: Document 04/25/20 14:34 SAK (Rec: 04/25/20 14:59 SAK [id number]) Current Condition History of Current Condition Onset Date 12/06/19 Current Complaints weakness right LE History of Current Condition CVA 12/06/19 affecting right side. Had inpatient rehab at [place]. Then home [facility]. Prior right TKA 2003. Needs to have left knee surgery, has been put off due to cardiac and CVA issues plus Covid19. Concerned about recovery from a TKA due to right LE weakness. Used FWW prior to CVA due to knee pain. Wants to build up her right leg strength. Recumbant elliptical 30 min at level 8 at home. Feels PT for gait ( likes parallel bars) and leg strengthening most important to her. Can take 3 steps without walker but otherwise too unstable. Prior Treatments and Tests prior PT interrupted by Covid19 Prior Functional Status Baseline Function- ADL's Modified Independent Baseline Function- Mobility Modified Independent Current Functional Impairments (Reported) Functional Limitations- Mobility/Gait Pt requires the use of walker PT-OP-C Subjective Start: 04/25/20 11:48 Freq: Status: Active Protocol: Document 05/06/20 13:00 SAK (Rec: 05/06/20 16:24 SAK [id number]) OP-PT Subjective Patient Comments Patient Comments Reports fatigued today, trying to comply with HEP. PT-OP-D Balance Start: 04/25/20 11:48 Freq: Status: Active Protocol: Document 04/25/20 14:34 SAK (Rec: 04/25/20 18:08 SAK [id number]) OP-PT Balance Assessment Sitting Balance Static Sitting Balance Ability Good Dynamic Sitting Balance Ability Good Tinetti Balance Assessment Sitting Balance Sitting Balance Steady, safe Arising from Chair Ability to Arise Able, uses arms to help Attempts to Arise Arises on 1st attempt Standing Balance Immediate Standing Balance Steady with support Standing Balance Steady, wide stance Nudged Response Staggers, catches self Standing with Eyes Closed Unsteady Turning Step Pattern Turning 360 Degrees Discontinuous steps Stability Turning 360 Degrees Unsteady, grabs/staggers Sitting Down Sitting Down Uses arms or unsteady Gait and Step Initiation of Gait No hesitancy Right Foot Step Length Does not pass stance ft. Right Foot Step Height Does not clear floor Left Foot Step Length Does not pass stance foot Left Foot Step Height Does not clear floor Gait Description Path Description Mild/moderate deviation Trunk Description Marked sway or uses aide Walking Stance Heels apart Scoring and Interpretation Tinetti Composite Score (points) 10 Corey Fall Scale Copyright Permission PT-OP-G Mobility & Gait Start: 04/25/20 11:48 Freq: Status: Active Protocol: Document 04/25/20 14:34 [facility] (Rec: 04/25/20 18:08 [facility] [id number]) OP Gait Assessment Gait Able to Maintain Weight Bearing Status Yes During Gait Assistive Devices Assistive Device Front Wheeled Walker Gait Deviations General Gait Pattern Antalgic,Decreased Stride Length,Decreased Feet Clearance,Flexed Trunk Factors Limiting Gait Function Factors Limiting Gait Function Decreased Strength,Pain PT-OP-M Strength Start: 04/25/20 11:48 Freq: Status: Active Protocol: Document 04/25/20 14:34 SAK (Rec: 04/25/20 18:08 [facility] [id number]) Hip Strength Hip Manual Muscle Testing Right Flexion (L2) 4- Good- Extension (S1) 3 Fair Abduction 3 Fair Adduction 3+ Fair+ Left Flexion (L2) 4- Good- Extension (S1) 3+ Fair+ Abduction 3+ Fair+ Adduction 4- Good- Knee Strength Knee Manual Muscle Testing Right Flexion (S2) 4- Good- Extension (L3) 4- Good- Left Flexion (S2) 4 Good Extension (L3) 4 Good Comments painful Ankle/Foot Strength Ankle and Foot Manual Muscle Testing Right Dorsiflexion (L4) 4 Good Plantarflexion (S1) 4- Good- Left Dorsiflexion (L4) 4+ Good+ Plantarflexion (S1) 4 Good PT-OP-Q Treatments Start: 04/25/20 11:48 Freq: Status: Active Protocol: Document 05/06/20 13:00 [facility] (Rec: 05/06/20 13:44 [facility] [id number]) Cardio Equipment Recumbent Elliptical (Biodex) Duration (Minutes) 3 Resistance 3 Seat Position 10 Other didn't like feel of machine Recumbent Stepper (Sci-Fit) Duration (Minutes) 5 Resistance 1.5 Seat Position 12 Therapeutic Exercises Sitting Exercises Hip Adduction Sitting Exercise Name Adductor Ball Squeeze Side bilateral Reps/Minutes 5 hold x 10 Long Arc Quad Sitting Exercise Name LAQ Side bilateral Reps/Minutes 10x Hip Abduction Sitting Exercise Name Abduction Side bilateral Resistance Lv 2 Equipment Used T-band Standing Exercises Hip Abduction Standing Exercise Name Hip Abduction Side bilateral Equipment Used // bars Reps/Minutes 10x right, 5x left Squats Standing Exercise Name Minisquats Reps/Minutes 6x Step-ups Standing Exercise Name Step-ups Side bilateral Equipment Used 6 step Hip Extension Standing Exercise Name Hip Extension Side bilateral Reps/Minutes 6x Other Exercises Resisted Side-stepping Other Exercise Name Resisted side-stepping Resistance Yellow Equipment Used T-band Gait Training Gait Activity SPC training Description Sequencing /c SPC Device Used SPC Level of Assistance SBA in // bars Gait in // bars Description Step-through /c UE support Device Used // bars PT-OP-T Assessment and Plan Start: 04/25/20 11:48 Freq: Status: Active Protocol: Document 05/06/20 13:00 [facility] (Rec: 05/06/20 13:44 [facility] [id number]) Physical Therapy Assessment Goals Three Impairment fall risk Care Home Goal (LTG) Patient score on Tinetti gait and balance assessment will improve from high risk category to low risk to improve her safety in the home and community LTG Duration 06/23/20 Two Impairment gait dysfunction Care Home Goal (LTG) Patient will be able to ambulate 200' with the use of a single point cane safely LTG Duration 06/23/20 One Impairment LE weakness Care Home Goal (LTG) Patient will demonstrate improvement in LE strength to at least 4+/5 for improved LE function and demonstrate independence and compliance to HEP LTG Duration 06/23/20 Assessment Summary Assessment Patient able to ambulate without Trendelenberg and with equal step lengths with bilateral UE support in parallel bars, unable with cane only, but willing to attempt today. Fatigues quickly and requires frequent rest breaks. Physical Therapy Plan Frequency and Duration Frequency of Treatment 2x/Week Duration of Treatment 8 wks Plan of Care Start Date 04/25/20 Plan of Care End Date 06/24/20 Therapeutic Interventions Therapeutic Interventions Balance Training,Gait Training ,Home Exercise Program, Neuromuscular Re-education, Patient/Caregiver Education, Self-Care/Home Management, Taping,Therapeutic Activities, Therapeutic Exercises Modalities Electric Stimulation,Hot Packs Next Visit Focus/Plan Next Note Type Treatment Note Next Visit Plan Review HEP, progress ther ex as tolerated for strengthening , gait training, and balance.
--- NOTE | 2020-05-09 14:32 | PT.OTN ---
Current Diagnoses Cerebral infarction, unspecified (05/09/20) Physical Therapy Treatment Note PT-OP-A Visit Information Start: 04/25/20 11:48 Freq: Status: Active Protocol: Document 05/09/20 13:45 DCW (Rec: 05/09/20 14:32 DCW [id number]) Out-Patient Physical Therapy Visit Information Visit Information Visit Type Treatment Note Visit Start Time 13:45 Visit Stop Time 14:30 Total Visit Minutes 45 Visit Number 4 Number of MEDICAL MALPRACTICE PARALEGAL Visits 0 Evaluation Information Evaluation Date 04/25/20 Precautions Precautions left knee pain, can give way. PT-OP-B Current Condition Start: 04/25/20 11:48 Freq: Status: Active Protocol: Document 04/25/20 14:34 SAK (Rec: 04/25/20 14:59 SAK [id number]) Current Condition History of Current Condition Onset Date 12/06/19 Current Complaints weakness right LE History of Current Condition CVA 12/06/19 affecting right side. Had inpatient rehab at [place]. Then home health. Prior right TKA 2003. Needs to have left knee surgery, has been put off due to cardiac and CVA issues plus Covid19. Concerned about recovery from a TKA due to right LE weakness. Used FWW prior to CVA due to knee pain. Wants to build up her right leg strength. Recumbant elliptical 30 min at level 8 at home. Feels PT for gait ( likes parallel bars) and leg strengthening most important to her. Can take 3 steps without walker but otherwise too unstable. Prior Treatments and Tests prior PT interrupted by Covid19 Prior Functional Status Baseline Function- ADL's Modified Independent Baseline Function- Mobility Modified Independent Current Functional Impairments (Reported) Functional Limitations- Mobility/Gait Pt requires the use of walker PT-OP-C Subjective Start: 04/25/20 11:48 Freq: Status: Active Protocol: Document 05/09/20 13:45 DCW (Rec: 05/09/20 14:32 DCW [id number]) OP-PT Subjective Patient Comments Patient Comments My back is terrible. I've taken everything I can, but nothing has really helped yet. Pt notes her knees are also really bothering her today. PT-OP-D Balance Start: 04/25/20 11:48 Freq: Status: Active Protocol: Document 04/25/20 14:34 SAK (Rec: 04/25/20 18:08 [facility] [id number]) OP-PT Balance Assessment Sitting Balance Static Sitting Balance Ability Good Dynamic Sitting Balance Ability Good Tinetti Balance Assessment Sitting Balance Sitting Balance Steady, safe Arising from Chair Ability to Arise Able, uses arms to help Attempts to Arise Arises on 1st attempt Standing Balance Immediate Standing Balance Steady with support Standing Balance Steady, wide stance Nudged Response Staggers, catches self Standing with Eyes Closed Unsteady Turning Step Pattern Turning 360 Degrees Discontinuous steps Stability Turning 360 Degrees Unsteady, grabs/staggers Sitting Down Sitting Down Uses arms or unsteady Gait and Step Initiation of Gait No hesitancy Right Foot Step Length Does not pass stance ft. Right Foot Step Height Does not clear floor Left Foot Step Length Does not pass stance foot Left Foot Step Height Does not clear floor Gait Description Path Description Mild/moderate deviation Trunk Description Marked sway or uses aide Walking Stance Heels apart Scoring and Interpretation Tinetti Composite Score (points) 10 Corey Fall Scale Copyright Permission PT-OP-G Mobility & Gait Start: 04/25/20 11:48 Freq: Status: Active Protocol: Document 04/25/20 14:34 [facility] (Rec: 04/25/20 18:08 [facility] [id number]) OP Gait Assessment Gait Able to Maintain Weight Bearing Status Yes During Gait Assistive Devices Assistive Device Front Wheeled Walker Gait Deviations General Gait Pattern Antalgic,Decreased Stride Length,Decreased Feet Clearance,Flexed Trunk Factors Limiting Gait Function Factors Limiting Gait Function Decreased Strength,Pain PT-OP-M Strength Start: 04/25/20 11:48 Freq: Status: Active Protocol: Document 04/25/20 14:34 [facility] (Rec: 04/25/20 18:08 [facility] [id number]) Hip Strength Hip Manual Muscle Testing Right Flexion (L2) 4- Good- Extension (S1) 3 Fair Abduction 3 Fair Adduction 3+ Fair+ Left Flexion (L2) 4- Good- Extension (S1) 3+ Fair+ Abduction 3+ Fair+ Adduction 4- Good- Knee Strength Knee Manual Muscle Testing Right Flexion (S2) 4- Good- Extension (L3) 4- Good- Left Flexion (S2) 4 Good Extension (L3) 4 Good Comments painful Ankle/Foot Strength Ankle and Foot Manual Muscle Testing Right Dorsiflexion (L4) 4 Good Plantarflexion (S1) 4- Good- Left Dorsiflexion (L4) 4+ Good+ Plantarflexion (S1) 4 Good PT-OP-Q Treatments Start: 04/25/20 11:48 Freq: Status: Active Protocol: Document 05/09/20 13:45 DCW (Rec: 05/09/20 14:32 DCW [id number]) Cardio Equipment Recumbent Stepper (Sci-Fit) Duration (Minutes) 5 Resistance 2 Seat Position 12 Therapeutic Exercises Sitting Exercises Long Arc Quad Sitting Exercise Name LAQ Side bilateral Resistance 1# Reps/Minutes 10x Standing Exercises Hip Abduction Standing Exercise Name Hip Abduction Side bilateral Equipment Used // bars Reps/Minutes 10x right, 5x left Squats Standing Exercise Name [place] Reps/Minutes 6x Step-ups Standing Exercise Name Step-ups Side bilateral Resistance 1# Equipment Used 6 step Heel/Toe Raises Standing Exercise Name Heel raises/toe raises Side bilateral Reps/Minutes x10 Hip Extension Standing Exercise Name Hip Extension Side bilateral Reps/Minutes 6x Other Exercises Hurdles Other Exercise Name Hurdles Resistance 1# Equipment Used in // bars Comments Fwd/Lateral Resisted Side-stepping Other Exercise Name Resisted side-stepping Resistance Yellow Equipment Used T-band Gait Training Gait Activity SPC training Description Sequencing /c SPC Device Used SPC Level of Assistance SBA in // bars Gait in // bars Description Step-through /c UE support Device Used // bars Neuro Re-Education Treatment Balance Activities Tandem Ambulation Details Heel-toe walking Equipment // bars Narrow BREEZY Details Narrow BREEZY Surface Johnson foam PT-OP-T Assessment and Plan Start: 04/25/20 11:48 Freq: Status: Active Protocol: Document 05/09/20 13:45 DCW (Rec: 05/09/20 14:32 DCW [id number]) Physical Therapy Assessment Impairments Impairments Activity Tolerance,Gait,Pain, Strength,Transfers Goals Three Impairment fall risk Supportability Engineer Goal (LTG) Patient score on Tinetti gait and balance assessment will improve from high risk category to low risk to improve her safety in the home and community LTG Duration 06/23/20 Two Impairment gait dysfunction Supportability Engineer Goal (LTG) Patient will be able to ambulate 200' with the use of a single point cane safely LTG Duration 06/23/20 One Impairment LE weakness Custodial Goal (LTG) Patient will demonstrate improvement in LE strength to at least 4+/5 for improved LE function and demonstrate independence and compliance to HEP LTG Duration 06/23/20 Assessment Summary Assessment Pt still doing fairly well ambulating in // bars, continues to try to rely on B UE support instead of just using SPC, mainly due to fear/ anxiety. Physical Therapy Plan Frequency and Duration Frequency of Treatment 2x/Week Duration of Treatment 8 wks Plan of Care Start Date 04/25/20 Plan of Care End Date 06/24/20 Therapeutic Interventions Therapeutic Interventions Balance Training,Gait Training ,Home Exercise Program, Neuromuscular Re-education, Patient/Caregiver Education, Self-Care/Home Management, Taping,Therapeutic Activities, Therapeutic Exercises Modalities Electric Stimulation,Hot Packs Next Visit Focus/Plan Next Note Type Treatment Note Next Visit Plan Review HEP, progress ther ex as tolerated for strengthening , gait training, and balance.
--- NOTE | 2020-05-13 16:25 | PT.OTN ---
Current Diagnoses Cerebral infarction, unspecified (05/13/20) Physical Therapy Treatment Note PT-OP-A Visit Information Start: 04/25/20 11:48 Freq: Status: Active Protocol: Document 05/13/20 13:05 SAK (Rec: 05/13/20 13:47 SAK [id number]) Out-Patient Physical Therapy Visit Information Visit Information Visit Type Treatment Note Visit Start Time 13:04 Visit Stop Time 13:45 Total Visit Minutes 41 Visit Number 5 Number of SOFTWARE DESIGN MANAGER Visits 0 Evaluation Information Evaluation Date 04/25/20 Precautions Precautions left knee pain, can give way. PT-OP-B Current Condition Start: 04/25/20 11:48 Freq: Status: Active Protocol: Document 04/25/20 14:34 SAK (Rec: 04/25/20 14:59 SAK [id number]) Current Condition History of Current Condition Onset Date 12/06/19 Current Complaints weakness right LE History of Current Condition CVA 12/06/19 affecting right side. Had inpatient rehab at [place]. Then home health. Prior right TKA 2003. Needs to have left knee surgery, has been put off due to cardiac and CVA issues plus Covid19. Concerned about recovery from a TKA due to right LE weakness. Used FWW prior to CVA due to knee pain. Wants to build up her right leg strength. Recumbant elliptical 30 min at level 8 at home. Feels PT for gait ( likes parallel bars) and leg strengthening most important to her. Can take 3 steps without walker but otherwise too unstable. Prior Treatments and Tests prior PT interrupted by Covid19 Prior Functional Status Baseline Function- ADL's Modified Independent Baseline Function- Mobility Modified Independent Current Functional Impairments (Reported) Functional Limitations- Mobility/Gait Pt requires the use of walker PT-OP-C Subjective Start: 04/25/20 11:48 Freq: Status: Active Protocol: Document 05/13/20 13:05 SAK (Rec: 05/13/20 13:47 SAK [id number]) OP-PT Subjective Patient Comments Patient Comments Very sore after last PT session, had to take Celebrex. States not feeling very well , didn't have lunch, feels weak. PT-OP-D Balance Start: 04/25/20 11:48 Freq: Status: Active Protocol: Document 04/25/20 14:34 SAK (Rec: 04/25/20 18:08 [facility] [id number]) OP-PT Balance Assessment Sitting Balance Static Sitting Balance Ability Good Dynamic Sitting Balance Ability Good Tinetti Balance Assessment Sitting Balance Sitting Balance Steady, safe Arising from Chair Ability to Arise Able, uses arms to help Attempts to Arise Arises on 1st attempt Standing Balance Immediate Standing Balance Steady with support Standing Balance Steady, wide stance Nudged Response Staggers, catches self Standing with Eyes Closed Unsteady Turning Step Pattern Turning 360 Degrees Discontinuous steps Stability Turning 360 Degrees Unsteady, grabs/staggers Sitting Down Sitting Down Uses arms or unsteady Gait and Step Initiation of Gait No hesitancy Right Foot Step Length Does not pass stance ft. Right Foot Step Height Does not clear floor Left Foot Step Length Does not pass stance foot Left Foot Step Height Does not clear floor Gait Description Path Description Mild/moderate deviation Trunk Description Marked sway or uses aide Walking Stance Heels apart Scoring and Interpretation Tinetti Composite Score (points) 10 Corey Fall Scale Copyright Permission PT-OP-G Mobility & Gait Start: 04/25/20 11:48 Freq: Status: Active Protocol: Document 04/25/20 14:34 [facility] (Rec: 04/25/20 18:08 [facility] [id number]) OP Gait Assessment Gait Able to Maintain Weight Bearing Status Yes During Gait Assistive Devices Assistive Device Front Wheeled Walker Gait Deviations General Gait Pattern Antalgic,Decreased Stride Length,Decreased Feet Clearance,Flexed Trunk Factors Limiting Gait Function Factors Limiting Gait Function Decreased Strength,Pain PT-OP-M Strength Start: 04/25/20 11:48 Freq: Status: Active Protocol: Document 04/25/20 14:34 KENZIE (Rec: 04/25/20 18:08 [facility] [id number]) Hip Strength Hip Manual Muscle Testing Right Flexion (L2) 4- Good- Extension (S1) 3 Fair Abduction 3 Fair Adduction 3+ Fair+ Left Flexion (L2) 4- Good- Extension (S1) 3+ Fair+ Abduction 3+ Fair+ Adduction 4- Good- Knee Strength Knee Manual Muscle Testing Right Flexion (S2) 4- Good- Extension (L3) 4- Good- Left Flexion (S2) 4 Good Extension (L3) 4 Good Comments painful Ankle/Foot Strength Ankle and Foot Manual Muscle Testing Right Dorsiflexion (L4) 4 Good Plantarflexion (S1) 4- Good- Left Dorsiflexion (L4) 4+ Good+ Plantarflexion (S1) 4 Good PT-OP-Q Treatments Start: 04/25/20 11:48 Freq: Status: Active Protocol: Document 05/13/20 13:05 [facility] (Rec: 05/13/20 13:47 [facility] [id number]) Cardio Equipment Recumbent Stepper (Sci-Fit) Duration (Minutes) 6 Resistance 1 Seat Position 12 Therapeutic Exercises Sitting Exercises Hip Adduction Sitting Exercise Name Adductor Ball Squeeze Side bilateral Reps/Minutes 5 hold x 10 Long Arc Quad Sitting Exercise Name LAQ Side bilateral Resistance 1# Reps/Minutes 10x Hip Abduction Sitting Exercise Name Abduction Side bilateral Resistance Lv 2 Equipment Used T-band Standing Exercises Hip Abduction Standing Exercise Name Hip Abduction Side bilateral Equipment Used // bars Reps/Minutes 10x right, 5x left Heel/Toe Raises Standing Exercise Name Heel raises/toe raises Side bilateral Reps/Minutes x10 Hip Extension Standing Exercise Name Hip Extension Side bilateral Reps/Minutes 6x Other Exercises Resisted Side-stepping Other Exercise Name Resisted side-stepping Comments *no band due to c/o pain Gait Training Gait Activity gait with cane Level of Assistance CG to min assist Distance/Duration 20'x2 SPC training Description Sequencing /c SPC Device Used SPC Level of Assistance SBA in // bars Gait in // bars Description Step-through /c UE support Device Used // bars Neuro Re-Education Treatment Balance Activities Tandem Ambulation Details Heel-toe walking Equipment // bars PT-OP-T Assessment and Plan Start: 04/25/20 11:48 Freq: Status: Active Protocol: Document 05/13/20 13:05 KENZIE (Rec: 05/13/20 13:47 [facility] [id number]) Physical Therapy Assessment Impairments Impairments Activity Tolerance,Gait,Pain, Strength,Transfers Goals Three Impairment fall risk Supervisor Photoengraving Goal (LTG) Patient score on Tinetti gait and balance assessment will improve from high risk category to low risk to improve her safety in the home and community LTG Duration 06/23/20 Two Impairment gait dysfunction Half-Way Goal (LTG) Patient will be able to ambulate 200' with the use of a single point cane safely LTG Duration 06/23/20 One Impairment LE weakness Supervisor Photoengraving Goal (LTG) Patient will demonstrate improvement in LE strength to at least 4+/5 for improved LE function and demonstrate independence and compliance to HEP LTG Duration 06/23/20 Assessment Summary Assessment Increased rest breaks today with decrease overall exercise tolerance, though was willing to walk outside parallel bars with cane 20'x2 with CG to min assist Physical Therapy Plan Frequency and Duration Frequency of Treatment 2x/Week Duration of Treatment 8 wks Plan of Care Start Date 04/25/20 Plan of Care End Date 06/24/20 Therapeutic Interventions Therapeutic Interventions Balance Training,Gait Training ,Home Exercise Program, Neuromuscular Re-education, Patient/Caregiver Education, Self-Care/Home Management, Taping,Therapeutic Activities, Therapeutic Exercises Modalities Electric Stimulation,Hot Packs Next Visit Focus/Plan Next Note Type Treatment Note Next Visit Plan Review HEP, progress ther ex as tolerated for strengthening , gait training, and balance. Encourage increased HEP compliance.
--- NOTE | 2020-05-15 14:46 | PT-OP ANOTE ---
cancelled at last minute due to not feeling well
--- NOTE | 2020-05-20 16:21 | PT.OTN ---
Current Diagnoses Cerebral infarction, unspecified (05/20/20) Physical Therapy Treatment Note PT-OP-A Visit Information Start: 04/25/20 11:48 Freq: Status: Active Protocol: Document 05/20/20 13:00 SAK (Rec: 05/20/20 13:46 SAK [id number]) Out-Patient Physical Therapy Visit Information Visit Information Visit Type Treatment Note Visit Start Time 12:59 Visit Stop Time 13:44 Total Visit Minutes 45 Visit Number 6 Number of PATIENT REGISTRATION REPRESENTATIVE Visits 0 Evaluation Information Evaluation Date 04/25/20 Precautions Precautions left knee pain, can give way. 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 Had inpatient rehab at [place]. Then home health. Prior right TKA 2003. Needs to have left knee surgery, has been put off due to cardiac and CVA issues plus Covid19. Concerned about recovery from a TKA due to right LE weakness. Used FWW prior to CVA due to knee pain. Wants to build up her right leg strength. Recumbant elliptical 30 min at level 8 at home. Feels PT for gait ( likes parallel bars) and leg strengthening most important to her. Can take 3 steps without walker but otherwise too unstable. Prior Treatments and Tests prior PT interrupted by Covid19 Prior Functional Status Baseline Function- ADL's Modified Independent Baseline Function- Mobility Modified Independent Current Functional Impairments (Reported) Functional Limitations- Mobility/Gait Pt requires the use of walker PT-OP-C Subjective Start: 04/25/20 11:48 Freq: Status: Active Protocol: Document 05/20/20 13:00 SAK (Rec: 05/20/20 13:46 SAK [id number]) OP-PT Subjective Patient Comments Patient Comments Reports she has her TKA scheduled for 07/10/20. Worried about taking too much NSAIDs so went off them a few days ago. Not walking as much. PT-OP-D Balance Start: 04/25/20 11:48 Freq: Status: Active Protocol: Document 04/25/20 14:34 SAK (Rec: 04/25/20 18:08 [facility] [id number]) OP-PT Balance Assessment Sitting Balance Static Sitting Balance Ability Good Dynamic Sitting Balance Ability Good Tinetti Balance Assessment Sitting Balance Sitting Balance Steady, safe Arising from Chair Ability to Arise Able, uses arms to help Attempts to Arise Arises on 1st attempt Standing Balance Immediate Standing Balance Steady with support Standing Balance Steady, wide stance Nudged Response Staggers, catches self Standing with Eyes Closed Unsteady Turning Step Pattern Turning 360 Degrees Discontinuous steps Stability Turning 360 Degrees Unsteady, grabs/staggers Sitting Down Sitting Down Uses arms or unsteady Gait and Step Initiation of Gait No hesitancy Right Foot Step Length Does not pass stance ft. Right Foot Step Height Does not clear floor Left Foot Step Length Does not pass stance foot Left Foot Step Height Does not clear floor Gait Description Path Description Mild/moderate deviation Trunk Description Marked sway or uses aide Walking Stance Heels apart Scoring and Interpretation Tinetti Composite Score (points) 10 Corey Fall Scale Copyright Permission PT-OP-G Mobility & Gait Start: 04/25/20 11:48 Freq: Status: Active Protocol: Document 04/25/20 14:34 [facility] (Rec: 04/25/20 18:08 [facility] [id number]) OP Gait Assessment Gait Able to Maintain Weight Bearing Status Yes During Gait Assistive Devices Assistive Device Front Wheeled Walker Gait Deviations General Gait Pattern Antalgic,Decreased Stride Length,Decreased Feet Clearance,Flexed Trunk Factors Limiting Gait Function Factors Limiting Gait Function Decreased Strength,Pain PT-OP-M Strength Start: 04/25/20 11:48 Freq: Status: Active Protocol: Document 04/25/20 14:34 [facility] (Rec: 04/25/20 18:08 [facility] [id number]) Hip Strength Hip Manual Muscle Testing Right Flexion (L2) 4- Good- Extension (S1) 3 Fair Abduction 3 Fair Adduction 3+ Fair+ Left Flexion (L2) 4- Good- Extension (S1) 3+ Fair+ Abduction 3+ Fair+ Adduction 4- Good- Knee Strength Knee Manual Muscle Testing Right Flexion (S2) 4- Good- Extension (L3) 4- Good- Left Flexion (S2) 4 Good Extension (L3) 4 Good Comments painful Ankle/Foot Strength Ankle and Foot Manual Muscle Testing Right Dorsiflexion (L4) 4 Good Plantarflexion (S1) 4- Good- Left Dorsiflexion (L4) 4+ Good+ Plantarflexion (S1) 4 Good PT-OP-Q Treatments Start: 04/25/20 11:48 Freq: Status: Active Protocol: Document 05/20/20 13:00 [facility] (Rec: 05/20/20 13:46 [facility] [id number]) Cardio Equipment Recumbent Stepper (Sci-Fit) Duration (Minutes) 8 Resistance 1 Seat Position 11 Therapeutic Exercises Sitting Exercises Long Arc Quad Sitting Exercise Name LAQ Side bilateral Resistance 1# Reps/Minutes 10x Seated Marching Sitting Exercise Name Marching Side bilateral Resistance 4# Equipment Used Ankle Weights Standing Exercises Hip Abduction Standing Exercise Name Hip Abduction Side bilateral Equipment Used // bars Reps/Minutes 10x right, 5x left Heel/Toe Raises Standing Exercise Name Heel raises/toe raises Side bilateral Reps/Minutes x10 Hip Extension Standing Exercise Name Hip Extension Side bilateral Reps/Minutes 6x Other Exercises Resisted Side-stepping Other Exercise Name Sidestepping without band Comments *no band due to c/o pain Gait Training Gait Activity gait with cane Level of Assistance CG to min assist Distance/Duration 20'x2 SPC training Description Sequencing /c SPC Device Used SPC Level of Assistance SBA in // bars Distance/Duration 40'x3 Comments 2 canes, CGA, 1 cane min assist and cues outside of parallel. Gait in // bars Description Step-through /c UE support Device Used // bars Self-Care/Home Management Treatment Education Patient Education Home Exercise Program Other Education Instructed in TKA exercise program and issued written program. Activities Self-Care/Home Management Activities sequencing for use of 2 straight canes. PT-OP-T Assessment and Plan Start: 04/25/20 11:48 Freq: Status: Active Protocol: Document 05/20/20 13:00 [facility] (Rec: 05/20/20 13:46 [facility] [id number]) Physical Therapy Assessment Goals 5 Legislative Advocate Goal (LTG) Pt will perform progressive HEP including postural, flexibility, strengtheing, gait and balance exercises with I to increase mobility and decrease fall risk by 02/04. 11/24/2019: Pt demonstrates post-op TKA exercises listed above this date LTG Duration 9 weeks Four [facility] Goal (LTG) Pt will present with an improved LEF score to reflect improved functional use of legs by 02/05/2020. LTG Duration 9 weeks Three Impairment fall risk Fci Goal (LTG) Patient score on Tinetti gait and balance assessment will improve from high risk category to low risk to improve her safety in the home and community LTG Duration 06/23/20 Two Impairment gait dysfunction Short Term Goal (STG) Negative [place] bilaterally STG Duration Met [facility] Goal (LTG) Patient will be able to ambulate 200' with the use of a single point cane safely LTG Duration 06/23/20 One Impairment LE weakness Short Term Goal (STG) Pt to be independent and complaint with an appropriate HEP STG Duration Met [facility] Goal (LTG) Patient will demonstrate improvement in LE strength to at least 4+/5 for improved LE function and demonstrate independence and compliance to HEP LTG Duration 06/23/20 Assessment Summary Assessment Patient demonstrated good understanding of use of 2 straight canes for gait, more comfortable outside of parallel bars with the use of 2 canes vs 1. Previously used trekking poles for walking/ hiking so was able to moss picker quickly. May allow her to progress to use of 1 cane more easily. Demonstrated good understanding of TKA exercise program, to be done in preparation for TKA in July. Physical Therapy Plan Frequency and Duration Frequency of Treatment 2x/Week Duration of Treatment 8 wks Plan of Care Start Date 04/25/20 Plan of Care End Date 06/24/20 Therapeutic Interventions Therapeutic Interventions Balance Training,Gait Training ,Home Exercise Program, Neuromuscular Re-education, Patient/Caregiver Education, Self-Care/Home Management, Taping,Therapeutic Activities, Therapeutic Exercises Modalities Electric Stimulation,Hot Packs Next Visit Focus/Plan Next Note Type Treatment Note Next Visit Plan progress gait training, balance, ther ex.
--- NOTE | 2020-05-22 16:23 | PT.OTN ---
Current Diagnoses Cerebral infarction, unspecified (05/22/20) Physical Therapy Treatment Note PT-OP-A Visit Information Start: 04/25/20 11:48 Freq: Status: Active Protocol: Document 05/22/20 15:19 SAK (Rec: 05/22/20 16:04 [facility] [id number]) Out-Patient Physical Therapy Visit Information Visit Information Visit Type Treatment Note Visit Start Time 13:15 Visit Stop Time 16:00 Total Visit Minutes 45 Visit Number 8 Number of CONFIGURATION CONSULTANT Visits 0 Evaluation Information Evaluation Date 04/25/20 Precautions Precautions left knee pain, can give way. PT-OP-B Current Condition Start: 04/25/20 11:48 Freq: Status: Active Protocol: Document 04/25/20 14:34 SAK (Rec: 04/25/20 14:59 SAK [id number]) Current Condition History of Current Condition Onset Date 12/06/19 Current Complaints weakness right LE History of Current Condition CVA 12/06/19 affecting right side. Had inpatient rehab at [facility]. Then home health. Prior right TKA 2003. Needs to have left knee surgery, has been put off due to cardiac and CVA issues plus Covid19. Concerned about recovery from a TKA due to right LE weakness. Used FWW prior to CVA due to knee pain. Wants to build up her right leg strength. Recumbant elliptical 30 min at level 8 at home. Feels PT for gait ( likes parallel bars) and leg strengthening most important to her. Can take 3 steps without walker but otherwise too unstable. Prior Treatments and Tests prior PT interrupted by Covid19 Prior Functional Status Baseline Function- ADL's Modified Independent Baseline Function- Mobility Modified Independent Current Functional Impairments (Reported) Functional Limitations- Mobility/Gait Pt requires the use of walker PT-OP-C Subjective Start: 04/25/20 11:48 Freq: Status: Active Protocol: Document 05/22/20 15:19 SAK (Rec: 05/22/20 16:04 [facility] [id number]) OP-PT Subjective Patient Comments Patient Comments Knee hurting, can't stand very long due to her back pain. Doesn't feel confident using canes PT-OP-D Balance Start: 04/25/20 11:48 Freq: Status: Active Protocol: Document 04/25/20 14:34 SAK (Rec: 04/25/20 18:08 SAK [id number]) OP-PT Balance Assessment Sitting Balance Static Sitting Balance Ability Good Dynamic Sitting Balance Ability Good Tinetti Balance Assessment Sitting Balance Sitting Balance Steady, safe Arising from Chair Ability to Arise Able, uses arms to help Attempts to Arise Arises on 1st attempt Standing Balance Immediate Standing Balance Steady with support Standing Balance Steady, wide stance Nudged Response Staggers, catches self Standing with Eyes Closed Unsteady Turning Step Pattern Turning 360 Degrees Discontinuous steps Stability Turning 360 Degrees Unsteady, grabs/staggers Sitting Down Sitting Down Uses arms or unsteady Gait and Step Initiation of Gait No hesitancy Right Foot Step Length Does not pass stance ft. Right Foot Step Height Does not clear floor Left Foot Step Length Does not pass stance foot Left Foot Step Height Does not clear floor Gait Description Path Description Mild/moderate deviation Trunk Description Marked sway or uses aide Walking Stance Heels apart Scoring and Interpretation Tinetti Composite Score (points) 10 Corey Fall Scale Copyright Permission PT-OP-G Mobility & Gait Start: 04/25/20 11:48 Freq: Status: Active Protocol: Document 04/25/20 14:34 [facility] (Rec: 04/25/20 18:08 [facility] [id number]) OP Gait Assessment Gait Able to Maintain Weight Bearing Status Yes During Gait Assistive Devices Assistive Device Front Wheeled Walker Gait Deviations General Gait Pattern Antalgic,Decreased Stride Length,Decreased Feet Clearance,Flexed Trunk Factors Limiting Gait Function Factors Limiting Gait Function Decreased Strength,Pain PT-OP-M Strength Start: 04/25/20 11:48 Freq: Status: Active Protocol: Document 04/25/20 14:34 KENZIE (Rec: 04/25/20 18:08 [facility] [id number]) Hip Strength Hip Manual Muscle Testing Right Flexion (L2) 4- Good- Extension (S1) 3 Fair Abduction 3 Fair Adduction 3+ Fair+ Left Flexion (L2) 4- Good- Extension (S1) 3+ Fair+ Abduction 3+ Fair+ Adduction 4- Good- Knee Strength Knee Manual Muscle Testing Right Flexion (S2) 4- Good- Extension (L3) 4- Good- Left Flexion (S2) 4 Good Extension (L3) 4 Good Comments painful Ankle/Foot Strength Ankle and Foot Manual Muscle Testing Right Dorsiflexion (L4) 4 Good Plantarflexion (S1) 4- Good- Left Dorsiflexion (L4) 4+ Good+ Plantarflexion (S1) 4 Good PT-OP-Q Treatments Start: 04/25/20 11:48 Freq: Status: Active Protocol: Document 05/22/20 15:19 [facility] (Rec: 05/22/20 16:04 [facility] [id number]) Cardio Equipment Recumbent Stepper (Sci-Fit) Duration (Minutes) 8 Resistance 2 Seat Position 12 Therapeutic Exercises Sitting Exercises reverse crunch Reps/Minutes 8x Comments seated at front of chair Standing Exercises row, shoulder ext Equipment Used L1 TB Reps/Minutes 10x ea Comments cues for postural alignment and core stabilization, unlocked knees sidestepping Resistance 1# Reps/Minutes 10 ft Comments parallel bars marching Equipment Used 1# Reps/Minutes 10x Gait Training Gait Activity SPC training Description gait with SPC Device Used 2 SPC Level of Assistance SBA to CGA Surface level, firm Distance/Duration 100x1, 150x2, 20x1 Comments cues for neutral posture, muscle activation sequencing. Gait in // bars Description Step-through /c UE support Device Used // bars PT-OP-T Assessment and Plan Start: 04/25/20 11:48 Freq: Status: Active Protocol: Document 05/22/20 15:19 [facility] (Rec: 05/22/20 16:04 [facility] [id number]) Physical Therapy Assessment Goals 5 Penitentiary Goal (LTG) Pt will perform progressive HEP including postural, flexibility, strengtheing, gait and balance exercises with I to increase mobility and decrease fall risk by 02/04. 11/24/2019: Pt demonstrates post-op TKA exercises listed above this date LTG Duration 9 weeks Four Pharmacology Professor Goal (LTG) Pt will present with an improved LEF score to reflect improved functional use of legs by 02/05/2020. LTG Duration 9 weeks Three Impairment fall risk Pharmacology Professor Goal (LTG) Patient score on Tinetti gait and balance assessment will improve from high risk category to low risk to improve her safety in the home and community LTG Duration 06/23/20 Two Impairment gait dysfunction Short Term Goal (STG) Negative [place]-Hallpike bilaterally STG Duration Met Pharmacology Professor Goal (LTG) Patient will be able to ambulate 200' with the use of a single point cane safely LTG Duration 06/23/20 One Impairment LE weakness Short Term Goal (STG) Pt to be independent and complaint with an appropriate HEP STG Duration Met Pharmacology Professor Goal (LTG) Patient will demonstrate improvement in LE strength to at least 4+/5 for improved LE function and demonstrate independence and compliance to HEP LTG Duration 06/23/20 Assessment Summary Assessment Improved confidence with gait using 2 straight canes with extensive training today. Added core ex and did much cueing for alignment to help promote increased standing tolerance. Patient demonstrates good sequencing with use of SPC's. Physical Therapy Plan Frequency and Duration Frequency of Treatment 2x/Week Duration of Treatment 8 wks Plan of Care Start Date 04/25/20 Plan of Care End Date 06/24/20 Therapeutic Interventions Therapeutic Interventions Balance Training,Gait Training ,Home Exercise Program, Neuromuscular Re-education, Patient/Caregiver Education, Self-Care/Home Management, Taping,Therapeutic Activities, Therapeutic Exercises Modalities Electric Stimulation,Hot Packs Next Visit Focus/Plan Next Note Type Treatment Note Next Visit Plan Continue to progress gait training, ther ex, balance. Closed chain ex as much as possible. Shuttle leg press.
--- NOTE | 2020-05-27 16:01 | PT.OTN ---
Current Diagnoses Cerebral infarction, unspecified (05/27/20) Physical Therapy Treatment Note PT-OP-A Visit Information Start: 04/25/20 11:48 Freq: Status: Active Protocol: Document 05/27/20 15:15 DCW (Rec: 05/27/20 16:01 DCW [id number]) Out-Patient Physical Therapy Visit Information Visit Information Visit Type Treatment Note Visit Start Time 15:15 Visit Stop Time 16:00 Total Visit Minutes 45 Visit Number 9 Number of INTERVENTIONAL CARDIOLOGIST Visits 0 Evaluation Information Evaluation Date 04/25/20 Precautions Precautions left knee pain, can give way. PT-OP-B Current Condition Start: 04/25/20 11:48 Freq: Status: Active Protocol: Document 04/25/20 14:34 SAK (Rec: 04/25/20 14:59 SAK [id number]) Current Condition History of Current Condition Onset Date 12/06/19 Current Complaints weakness right LE History of Current Condition CVA 12/06/19 affecting right side. Had inpatient rehab at [place]. Then home health. Prior right TKA 2003. Needs to have left knee surgery, has been put off due to cardiac and CVA issues plus Covid19. Concerned about recovery from a TKA due to right LE weakness. Used FWW prior to CVA due to knee pain. Wants to build up her right leg strength. Recumbant elliptical 30 min at level 8 at home. Feels PT for gait ( likes parallel bars) and leg strengthening most important to her. Can take 3 steps without walker but otherwise too unstable. Prior Treatments and Tests prior PT interrupted by Covid19 Prior Functional Status Baseline Function- ADL's Modified Independent Baseline Function- Mobility Modified Independent Current Functional Impairments (Reported) Functional Limitations- Mobility/Gait Pt requires the use of walker PT-OP-C Subjective Start: 04/25/20 11:48 Freq: Status: Active Protocol: Document 05/27/20 15:15 DCW (Rec: 05/27/20 16:01 DCW [id number]) OP-PT Subjective Patient Comments Patient Comments I'm shakey today, and I don't knw why. PT-OP-D Balance Start: 04/25/20 11:48 Freq: Status: Active Protocol: Document 04/25/20 14:34 SAK (Rec: 04/25/20 18:08 SAK [id number]) OP-PT Balance Assessment Sitting Balance Static Sitting Balance Ability Good Dynamic Sitting Balance Ability Good Tinetti Balance Assessment Sitting Balance Sitting Balance Steady, safe Arising from Chair Ability to Arise Able, uses arms to help Attempts to Arise Arises on 1st attempt Standing Balance Immediate Standing Balance Steady with support Standing Balance Steady, wide stance Nudged Response Staggers, catches self Standing with Eyes Closed Unsteady Turning Step Pattern Turning 360 Degrees Discontinuous steps Stability Turning 360 Degrees Unsteady, grabs/staggers Sitting Down Sitting Down Uses arms or unsteady Gait and Step Initiation of Gait No hesitancy Right Foot Step Length Does not pass stance ft. Right Foot Step Height Does not clear floor Left Foot Step Length Does not pass stance foot Left Foot Step Height Does not clear floor Gait Description Path Description Mild/moderate deviation Trunk Description Marked sway or uses aide Walking Stance Heels apart Scoring and Interpretation Tinetti Composite Score (points) 10 Corey Fall Scale Copyright Permission PT-OP-G Mobility & Gait Start: 04/25/20 11:48 Freq: Status: Active Protocol: Document 04/25/20 14:34 [facility] (Rec: 04/25/20 18:08 [facility] [id number]) OP Gait Assessment Gait Able to Maintain Weight Bearing Status Yes During Gait Assistive Devices Assistive Device Front Wheeled Walker Gait Deviations General Gait Pattern Antalgic,Decreased Stride Length,Decreased Feet Clearance,Flexed Trunk Factors Limiting Gait Function Factors Limiting Gait Function Decreased Strength,Pain PT-OP-M Strength Start: 04/25/20 11:48 Freq: Status: Active Protocol: Document 04/25/20 14:34 [facility] (Rec: 04/25/20 18:08 [facility] [id number]) Hip Strength Hip Manual Muscle Testing Right Flexion (L2) 4- Good- Extension (S1) 3 Fair Abduction 3 Fair Adduction 3+ Fair+ Left Flexion (L2) 4- Good- Extension (S1) 3+ Fair+ Abduction 3+ Fair+ Adduction 4- Good- Knee Strength Knee Manual Muscle Testing Right Flexion (S2) 4- Good- Extension (L3) 4- Good- Left Flexion (S2) 4 Good Extension (L3) 4 Good Comments painful Ankle/Foot Strength Ankle and Foot Manual Muscle Testing Right Dorsiflexion (L4) 4 Good Plantarflexion (S1) 4- Good- Left Dorsiflexion (L4) 4+ Good+ Plantarflexion (S1) 4 Good PT-OP-Q Treatments Start: 04/25/20 11:48 Freq: Status: Active Protocol: Document 05/27/20 15:15 DCW (Rec: 05/27/20 16:01 DCW [id number]) Cardio Equipment Recumbent Stepper (Sci-Fit) Duration (Minutes) 6 Resistance 4->3 Seat Position 12 Therapeutic Exercises Sitting Exercises reverse crunch Reps/Minutes 8x Comments seated at front of chair Standing Exercises marching Equipment Used 1# Reps/Minutes 10x Hip Abduction Standing Exercise Name Hip Abduction Side bilateral Equipment Used // bars Reps/Minutes 10x Hip Extension Standing Exercise Name Hip Extension Side bilateral Reps/Minutes 6x Other Exercises Resisted Side-stepping Other Exercise Name Sidestepping without band Comments *no band due to c/o pain Gait Training Gait Activity SPC training Description gait with SPC Device Used 2 SPC Level of Assistance SBA to CGA Surface level, firm Distance/Duration 10'x2, 130' x1, 150' x1 Comments cues for neutral posture, muscle activation sequencing. Gait in // bars Description Step-through /c UE support Device Used // bars PT-OP-T Assessment and Plan Start: 04/25/20 11:48 Freq: Status: Active Protocol: Document 05/27/20 15:15 DCW (Rec: 05/27/20 16:01 DCW [id number]) Physical Therapy Assessment Goals 5 Grade Recorder Goal (LTG) Pt will perform progressive HEP including postural, flexibility, strengtheing, gait and balance exercises with I to increase mobility and decrease fall risk by 02/04. 11/24/2019: Pt demonstrates post-op TKA exercises listed above this date LTG Duration 9 weeks Four Grade Recorder Goal (LTG) Pt will present with an improved LEF score to reflect improved functional use of legs by 02/05/2020. LTG Duration 9 weeks Three Impairment fall risk Grade Recorder Goal (LTG) Patient score on Tinetti gait and balance assessment will improve from high risk category to low risk to improve her safety in the home and community LTG Duration 06/23/20 Two Impairment gait dysfunction Short Term Goal (STG) Negative [place]-Hallpike bilaterally STG Duration Met Grade Recorder Goal (LTG) Patient will be able to ambulate 200' with the use of a single point cane safely LTG Duration 06/23/20 One Impairment LE weakness Short Term Goal (STG) Pt to be independent and complaint with an appropriate HEP STG Duration Met Alf Goal (LTG) Patient will demonstrate improvement in LE strength to at least 4+/5 for improved LE function and demonstrate independence and compliance to HEP LTG Duration 06/23/20 Assessment Summary Assessment Pt continues to progress with ambulation using only two SPC, not requiring as many rest breaks during therapy. Pt has a TKA scheduled now for 07/10/20 . Physical Therapy Plan Frequency and Duration Frequency of Treatment 2x/Week Duration of Treatment 8 wks Plan of Care Start Date 04/25/20 Plan of Care End Date 06/24/20 Therapeutic Interventions Therapeutic Interventions Balance Training,Gait Training ,Home Exercise Program, Neuromuscular Re-education, Patient/Caregiver Education, Self-Care/Home Management, Taping,Therapeutic Activities, Therapeutic Exercises Modalities Electric Stimulation,Hot Packs Next Visit Focus/Plan Next Note Type Treatment Note Next Visit Plan Continue to progress gait training, ther ex, balance. Closed chain ex as much as possible. Shuttle leg press.
--- NOTE | 2020-05-29 16:01 | PT.OTN ---
Current Diagnoses Cerebral infarction, unspecified (05/29/20) Physical Therapy Treatment Note PT-OP-A Visit Information Start: 04/25/20 11:48 Freq: Status: Active Protocol: Document 05/29/20 15:15 DCW (Rec: 05/29/20 16:01 DCW [id number]) Out-Patient Physical Therapy Visit Information Visit Information Visit Type Treatment Note Visit Start Time 15:15 Visit Stop Time 16:00 Total Visit Minutes 45 Visit Number 9 (corrected) Number of MEDICAL PHOTOGRAPHER Visits 0 Evaluation Information Evaluation Date 04/25/20 Precautions Precautions left knee pain, can give way. 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 Had inpatient rehab at [facility]. Then home health. Prior right TKA 2003. Needs to have left knee surgery, has been put off due to cardiac and CVA issues plus Covid19. Concerned about recovery from a TKA due to right LE weakness. Used FWW prior to CVA due to knee pain. Wants to build up her right leg strength. Recumbant elliptical 30 min at level 8 at home. Feels PT for gait ( likes parallel bars) and leg strengthening most important to her. Can take 3 steps without walker but otherwise too unstable. Prior Treatments and Tests prior PT interrupted by Covid19 Prior Functional Status Baseline Function- ADL's Modified Independent Baseline Function- Mobility Modified Independent Current Functional Impairments (Reported) Functional Limitations- Mobility/Gait Pt requires the use of walker PT-OP-C Subjective Start: 04/25/20 11:48 Freq: Status: Active Protocol: Document 05/29/20 15:15 DCW (Rec: 05/29/20 16:01 DCW [id number]) OP-PT Subjective Patient Comments Patient Comments I'm feeling good enough that I keep standing and taking a few steps before I remember my walker. PT-OP-D Balance Start: 04/25/20 11:48 Freq: Status: Active Protocol: Document 04/25/20 14:34 SAK (Rec: 04/25/20 18:08 SAK [id number]) OP-PT Balance Assessment Sitting Balance Static Sitting Balance Ability Good Dynamic Sitting Balance Ability Good Tinetti Balance Assessment Sitting Balance Sitting Balance Steady, safe Arising from Chair Ability to Arise Able, uses arms to help Attempts to Arise Arises on 1st attempt Standing Balance Immediate Standing Balance Steady with support Standing Balance Steady, wide stance Nudged Response Staggers, catches self Standing with Eyes Closed Unsteady Turning Step Pattern Turning 360 Degrees Discontinuous steps Stability Turning 360 Degrees Unsteady, grabs/staggers Sitting Down Sitting Down Uses arms or unsteady Gait and Step Initiation of Gait No hesitancy Right Foot Step Length Does not pass stance ft. Right Foot Step Height Does not clear floor Left Foot Step Length Does not pass stance foot Left Foot Step Height Does not clear floor Gait Description Path Description Mild/moderate deviation Trunk Description Marked sway or uses aide Walking Stance Heels apart Scoring and Interpretation Tinetti Composite Score (points) 10 Corey Fall Scale Copyright Permission PT-OP-G Mobility & Gait Start: 04/25/20 11:48 Freq: Status: Active Protocol: Document 04/25/20 14:34 [facility] (Rec: 04/25/20 18:08 [facility] [id number]) OP Gait Assessment Gait Able to Maintain Weight Bearing Status Yes During Gait Assistive Devices Assistive Device Front Wheeled Walker Gait Deviations General Gait Pattern Antalgic,Decreased Stride Length,Decreased Feet Clearance,Flexed Trunk Factors Limiting Gait Function Factors Limiting Gait Function Decreased Strength,Pain PT-OP-M Strength Start: 04/25/20 11:48 Freq: Status: Active Protocol: Document 04/25/20 14:34 KENZIE (Rec: 04/25/20 18:08 [facility] [id number]) Hip Strength Hip Manual Muscle Testing Right Flexion (L2) 4- Good- Extension (S1) 3 Fair Abduction 3 Fair Adduction 3+ Fair+ Left Flexion (L2) 4- Good- Extension (S1) 3+ Fair+ Abduction 3+ Fair+ Adduction 4- Good- Knee Strength Knee Manual Muscle Testing Right Flexion (S2) 4- Good- Extension (L3) 4- Good- Left Flexion (S2) 4 Good Extension (L3) 4 Good Comments painful Ankle/Foot Strength Ankle and Foot Manual Muscle Testing Right Dorsiflexion (L4) 4 Good Plantarflexion (S1) 4- Good- Left Dorsiflexion (L4) 4+ Good+ Plantarflexion (S1) 4 Good PT-OP-Q Treatments Start: 04/25/20 11:48 Freq: Status: Active Protocol: Document 05/29/20 15:15 DCW (Rec: 05/29/20 16:01 DCW [id number]) Cardio Equipment Recumbent Stepper (Sci-Fit) Duration (Minutes) 6 Resistance 3 Seat Position 12 Therapeutic Exercises Sitting Exercises Dorsiflexion Sitting Exercise Name Ankle Dorsiflexion Side left Standing Exercises row, shoulder ext Equipment Used L2 TB Reps/Minutes 10x ea Comments cues for postural alignment and core stabilization, unlocked knees marching Equipment Used 2# Reps/Minutes 10x Hip Abduction Standing Exercise Name Hip Abduction Side bilateral Equipment Used // bars Reps/Minutes 10x Heel/Toe Raises Standing Exercise Name Heel raises/toe raises Side bilateral Reps/Minutes x10 Hip Extension Standing Exercise Name Hip Extension Side bilateral Reps/Minutes 6x Hamstring Curls Standing Exercise Name Standing HS curls Side bilateral Resistance 2# Equipment Used // bars Other Exercises Resisted Side-stepping Other Exercise Name Sidestepping without band Comments *no band due to c/o pain Gait Training Gait Activity SPC training Description gait with SPC Device Used 2 SPC Level of Assistance SBA to CGA Surface level, firm Distance/Duration 150' x1, 190' x1 Comments cues for neutral posture, muscle activation sequencing. PT-OP-T Assessment and Plan Start: 04/25/20 11:48 Freq: Status: Active Protocol: Document 05/29/20 15:15 DCW (Rec: 05/29/20 16:01 MNW [id number]) Physical Therapy Assessment Goals 5 Nursing Home Admissions Director Goal (LTG) Pt will perform progressive HEP including postural, flexibility, strengtheing, gait and balance exercises with I to increase mobility and decrease fall risk by 02/04. 11/24/2019: Pt demonstrates post-op TKA exercises listed above this date LTG Duration 9 weeks Four Nursing Home Admissions Director Goal (LTG) Pt will present with an improved LEF score to reflect improved functional use of legs by 02/05/2020. LTG Duration 9 weeks Three Impairment fall risk Senior Living Goal (LTG) Patient score on Tinetti gait and balance assessment will improve from high risk category to low risk to improve her safety in the home and community LTG Duration 06/23/20 Two Impairment gait dysfunction Short Term Goal (STG) Negative [place]-Hallpike bilaterally STG Duration Met Nursing Home Admissions Director Goal (LTG) Patient will be able to ambulate 200' with the use of a single point cane safely LTG Duration 06/23/20 One Impairment LE weakness Short Term Goal (STG) Pt to be independent and complaint with an appropriate HEP STG Duration Met Senior Living Goal (LTG) Patient will demonstrate improvement in LE strength to at least 4+/5 for improved LE function and demonstrate independence and compliance to HEP LTG Duration 06/23/20 Assessment Summary Assessment Pt able to slightly increase distance walked in gym with two SPCs, up to 190'. Pt still requires multiple rest breaks , some due to fatigue, some due to knee pain. Physical Therapy Plan Frequency and Duration Frequency of Treatment 2x/Week Duration of Treatment 8 wks Plan of Care Start Date 04/25/20 Plan of Care End Date 06/24/20 Therapeutic Interventions Therapeutic Interventions Balance Training,Gait Training ,Home Exercise Program, Neuromuscular Re-education, Patient/Caregiver Education, Self-Care/Home Management, Taping,Therapeutic Activities, Therapeutic Exercises Modalities Electric Stimulation,Hot Packs Next Visit Focus/Plan Next Note Type Treatment Note Next Visit Plan Continue to progress gait training, ther ex, balance. Closed chain ex as much as possible. Shuttle leg press.
--- NOTE | 2020-06-03 16:02 | PT.OTN ---
Current Diagnoses Cerebral infarction, unspecified (06/03/20) Physical Therapy Treatment Note PT-OP-A Visit Information Start: 04/25/20 11:48 Freq: Status: Active Protocol: Document 06/03/20 15:15 DCW (Rec: 06/03/20 16:02 DCW [id number]) Out-Patient Physical Therapy Visit Information Visit Information Visit Type Treatment Note Visit Start Time 15:15 Visit Stop Time 16:00 Total Visit Minutes 45 Visit Number 10 Number of SAWMILL SUPERVISOR Visits 0 Evaluation Information Evaluation Date 04/25/20 Precautions Precautions left knee pain, can give way. PT-OP-B Current Condition Start: 04/25/20 11:48 Freq: Status: Active Protocol: Document 04/25/20 14:34 SAK (Rec: 04/25/20 14:59 SAK [id number]) Current Condition History of Current Condition Onset Date 12/06/19 Current Complaints weakness right LE History of Current Condition CVA 12/06/19 affecting right side. Had inpatient rehab at [place]. Then home health. Prior right TKA 2003. Needs to have left knee surgery, has been put off due to cardiac and CVA issues plus Covid19. Concerned about recovery from a TKA due to right LE weakness. Used FWW prior to CVA due to knee pain. Wants to build up her right leg strength. Recumbant elliptical 30 min at level 8 at home. Feels PT for gait ( likes parallel bars) and leg strengthening most important to her. Can take 3 steps without walker but otherwise too unstable. Prior Treatments and Tests prior PT interrupted by Covid19 Prior Functional Status Baseline Function- ADL's Modified Independent Baseline Function- Mobility Modified Independent Current Functional Impairments (Reported) Functional Limitations- Mobility/Gait Pt requires the use of walker PT-OP-C Subjective Start: 04/25/20 11:48 Freq: Status: Active Protocol: Document 06/03/20 15:15 DCW (Rec: 06/03/20 16:02 DCW [id number]) OP-PT Subjective Patient Comments Patient Comments Pt reports that prior to attending PT, her blood pressure was 105/54, measured in clinic 116/68. PT-OP-D Balance Start: 04/25/20 11:48 Freq: Status: Active Protocol: Document 04/25/20 14:34 SAK (Rec: 04/25/20 18:08 SAK [id number]) OP-PT Balance Assessment Sitting Balance Static Sitting Balance Ability Good Dynamic Sitting Balance Ability Good Tinetti Balance Assessment Sitting Balance Sitting Balance Steady, safe Arising from Chair Ability to Arise Able, uses arms to help Attempts to Arise Arises on 1st attempt Standing Balance Immediate Standing Balance Steady with support Standing Balance Steady, wide stance Nudged Response Staggers, catches self Standing with Eyes Closed Unsteady Turning Step Pattern Turning 360 Degrees Discontinuous steps Stability Turning 360 Degrees Unsteady, grabs/staggers Sitting Down Sitting Down Uses arms or unsteady Gait and Step Initiation of Gait No hesitancy Right Foot Step Length Does not pass stance ft. Right Foot Step Height Does not clear floor Left Foot Step Length Does not pass stance foot Left Foot Step Height Does not clear floor Gait Description Path Description Mild/moderate deviation Trunk Description Marked sway or uses aide Walking Stance Heels apart Scoring and Interpretation Tinetti Composite Score (points) 10 Corey Fall Scale Copyright Permission PT-OP-G Mobility & Gait Start: 04/25/20 11:48 Freq: Status: Active Protocol: Document 04/25/20 14:34 [facility] (Rec: 04/25/20 18:08 [facility] [id number]) OP Gait Assessment Gait Able to Maintain Weight Bearing Status Yes During Gait Assistive Devices Assistive Device Front Wheeled Walker Gait Deviations General Gait Pattern Antalgic,Decreased Stride Length,Decreased Feet Clearance,Flexed Trunk Factors Limiting Gait Function Factors Limiting Gait Function Decreased Strength,Pain PT-OP-M Strength Start: 04/25/20 11:48 Freq: Status: Active Protocol: Document 04/25/20 14:34 [facility] (Rec: 04/25/20 18:08 [facility] [id number]) Hip Strength Hip Manual Muscle Testing Right Flexion (L2) 4- Good- Extension (S1) 3 Fair Abduction 3 Fair Adduction 3+ Fair+ Left Flexion (L2) 4- Good- Extension (S1) 3+ Fair+ Abduction 3+ Fair+ Adduction 4- Good- Knee Strength Knee Manual Muscle Testing Right Flexion (S2) 4- Good- Extension (L3) 4- Good- Left Flexion (S2) 4 Good Extension (L3) 4 Good Comments painful Ankle/Foot Strength Ankle and Foot Manual Muscle Testing Right Dorsiflexion (L4) 4 Good Plantarflexion (S1) 4- Good- Left Dorsiflexion (L4) 4+ Good+ Plantarflexion (S1) 4 Good PT-OP-Q Treatments Start: 04/25/20 11:48 Freq: Status: Active Protocol: Document 06/03/20 15:15 DCW (Rec: 06/03/20 16:02 DCW [id number]) Cardio Equipment Recumbent Stepper (Sci-Fit) Duration (Minutes) 7 Resistance 3 Seat Position 12 Therapeutic Exercises Sitting Exercises Hamstring Curl Sitting Exercise Name HS curl Side bilateral Resistance Lv 2 Equipment Used T-band Dorsiflexion Sitting Exercise Name Ankle Dorsiflexion Side bilateral Resistance Lv 2 Equipment Used T-band reverse crunch Reps/Minutes 8x Comments seated at front of chair Long Arc Quad Sitting Exercise Name LAQ Side bilateral Resistance 2# Reps/Minutes 10x Standing Exercises marching Standing Exercise Name Standing Marching Side bilateral Equipment Used 2# Reps/Minutes 10x Hip Abduction Standing Exercise Name Hip Abduction Side bilateral Equipment Used // bars Reps/Minutes 10x Squats Standing Exercise Name Sit<->Stand Comments stopped d/t knee pain Step-ups Standing Exercise Name Toe-taps Side bilateral Resistance 2# Equipment Used 6 step Heel/Toe Raises Standing Exercise Name Heel raises/toe raises Side bilateral Reps/Minutes x10 Hip Extension Standing Exercise Name Hip Extension Side bilateral Reps/Minutes 6x Hamstring Curls Standing Exercise Name Standing HS curls Side bilateral Resistance 2# Equipment Used // bars Other Exercises Resisted Side-stepping Other Exercise Name Sidestepping without band Comments *no band due to c/o pain Gait Training Gait Activity SPC training Description gait with SPC Device Used 2 SPC Level of Assistance SBA to CGA Surface level, firm Distance/Duration 190' x2 Comments cues for neutral posture, muscle activation sequencing. PT-OP-T Assessment and Plan Start: 04/25/20 11:48 Freq: Status: Active Protocol: Document 06/03/20 15:15 DCW (Rec: 06/03/20 16:02 DCW [id number]) Physical Therapy Assessment Goals 5 Data Analytics Chief Scientist Goal (LTG) Pt will perform progressive HEP including postural, flexibility, strengtheing, gait and balance exercises with I to increase mobility and decrease fall risk by 02/04. 11/24/2019: Pt demonstrates post-op TKA exercises listed above this date LTG Duration 9 weeks Four Data Analytics Chief Scientist Goal (LTG) Pt will present with an improved LEF score to reflect improved functional use of legs by 02/05/2020. LTG Duration 9 weeks Three Impairment fall risk Custodial Goal (LTG) Patient score on Tinetti gait and balance assessment will improve from high risk category to low risk to improve her safety in the home and community LTG Duration 06/23/20 Two Impairment gait dysfunction Short Term Goal (STG) Negative Huron-Hallpike bilaterally STG Duration Met Custodial Goal (LTG) Patient will be able to ambulate 200' with the use of a single point cane safely LTG Duration 06/23/20 One Impairment LE weakness Short Term Goal (STG) Pt to be independent and complaint with an appropriate HEP STG Duration Met Data Analytics Chief Scientist Goal (LTG) Patient will demonstrate improvement in LE strength to at least 4+/5 for improved LE function and demonstrate independence and compliance to HEP LTG Duration 06/23/20 Assessment Summary Assessment Pt still showing slight improvements. Will perform re- testing and likely discharge next visit, and return to therapy in ~1 month for a pre- op visit for TKA. Physical Therapy Plan Frequency and Duration Frequency of Treatment 2x/Week Duration of Treatment 8 wks Plan of Care Start Date 04/25/20 Plan of Care End Date 06/24/20 Therapeutic Interventions Therapeutic Interventions Balance Training,Gait Training ,Home Exercise Program, Neuromuscular Re-education, Patient/Caregiver Education, Self-Care/Home Management, Taping,Therapeutic Activities, Therapeutic Exercises Modalities Electric Stimulation,Hot Packs Next Visit Focus/Plan Next Note Type Discharge Summary Next Visit Plan retesting for d/c, 10th visit
--- NOTE | 2020-06-05 16:06 | PT.OTN ---
Current Diagnoses Cerebral infarction, unspecified (06/05/20) Physical Therapy Treatment Note PT-OP-A Visit Information Start: 04/25/20 11:48 Freq: Status: Active Protocol: Document 06/05/20 15:15 DCW (Rec: 06/05/20 16:06 DCW [id number]) Out-Patient Physical Therapy Visit Information Visit Information Visit Type Discharge Summary Visit Start Time 15:15 Visit Stop Time 16:00 Total Visit Minutes 45 Visit Number 11 Number of JOURNEYMAN WELDER Visits 0 Evaluation Information Evaluation Date 04/25/20 Precautions Precautions left knee pain, can give way. PT-OP-B Current Condition Start: 04/25/20 11:48 Freq: Status: Active Protocol: Document 04/25/20 14:34 SAK (Rec: 04/25/20 14:59 SAK [id number]) Current Condition History of Current Condition Onset Date 12/06/19 Current Complaints weakness right LE History of Current Condition CVA 12/06/19 affecting right side. Had inpatient rehab at [place]. Then home health. Prior right TKA 2003. Needs to have left knee surgery, has been put off due to cardiac and CVA issues plus Covid19. Concerned about recovery from a TKA due to right LE weakness. Used FWW prior to CVA due to knee pain. Wants to build up her right leg strength. Recumbant elliptical 30 min at level 8 at home. Feels PT for gait ( likes parallel bars) and leg strengthening most important to her. Can take 3 steps without walker but otherwise too unstable. Prior Treatments and Tests prior PT interrupted by Covid19 Prior Functional Status Baseline Function- ADL's Modified Independent Baseline Function- Mobility Modified Independent Current Functional Impairments (Reported) Functional Limitations- Mobility/Gait Pt requires the use of walker PT-OP-C Subjective Start: 04/25/20 11:48 Freq: Status: Active Protocol: Document 06/05/20 15:15 DCW (Rec: 06/05/20 16:06 DCW [id number]) OP-PT Subjective Patient Comments Patient Comments Pt reports that she is doing well today, feels ready to get her knee replacement done. Pt has one pre-op PT appointment scheduled, and then multiple post-op appointments. PT-OP-D Balance Start: 04/25/20 11:48 Freq: Status: Active Protocol: Document 06/05/20 15:15 DCW (Rec: 06/05/20 15:43 DCW [id number]) OP-PT Balance Assessment Sitting Balance Static Sitting Balance Ability Good Dynamic Sitting Balance Ability Good Standing Balance Static Standing Balance Ability Fair Dynamic Standing Balance Ability Fair Tinetti Balance Assessment Sitting Balance Sitting Balance Steady, safe Arising from Chair Ability to Arise Able, uses arms to help Attempts to Arise Arises on 1st attempt Standing Balance Immediate Standing Balance Steady w/o support Standing Balance Steady, wide stance Nudged Response Steady Standing with Eyes Closed Steady Turning Step Pattern Turning 360 Degrees Discontinuous steps Stability Turning 360 Degrees Unsteady, grabs/staggers Sitting Down Sitting Down Uses arms or unsteady Gait and Step Initiation of Gait No hesitancy Right Foot Step Length Does pass stance foot Right Foot Step Height Completely clears floor Left Foot Step Length Does pass stance foot Left Foot Step Height Completely clears floor Step Description Step Symmetry Step length appears equal Step Continuity Steps appear continuous Gait Description Path Description Mild/moderate deviation Trunk Description Marked sway or uses aide Walking Stance Heels apart Scoring and Interpretation Tinetti Composite Score (points) 19 Interpretation of Scores At risk for falls (19-24) Tinetti Impairment Rating from Composite 20 to <40% Impaired (Score 17- Score 22) Corey Fall Scale Copyright Permission PT-OP-G Mobility & Gait Start: 04/25/20 11:48 Freq: Status: Active Protocol: Document 06/05/20 15:15 DCW (Rec: 06/05/20 15:43 DCW [id number]) OP Gait Assessment Gait Gait Assistance Required: Standby Assistance Distance (Feet) 190 Able to Maintain Weight Bearing Status Yes During Gait Assistive Devices Assistive Device Straight Cane Gait Deviations General Gait Pattern Antalgic,Decreased Stride Length,Decreased Feet Clearance,Flexed Trunk Factors Limiting Gait Function Factors Limiting Gait Function Decreased Strength,Pain PT-OP-M Strength Start: 04/25/20 11:48 Freq: Status: Active Protocol: Document 06/05/20 15:15 DCW (Rec: 06/05/20 15:43 DCW [id number]) Hip Strength Hip Manual Muscle Testing Right Flexion (L2) 4 Good Extension (S1) 4+ Good+ Abduction 3+ Fair+ Adduction 4- Good- Left Flexion (L2) 4 Good Extension (S1) 4+ Good+ Abduction 3+ Fair+ Adduction 4- Good- Knee Strength Knee Manual Muscle Testing Right Flexion (S2) 4 Good Extension (L3) 4 Good Left Flexion (S2) 4 Good Extension (L3) 4 Good Ankle/Foot Strength Ankle and Foot Manual Muscle Testing Right Dorsiflexion (L4) 4 Good Plantarflexion (S1) 4 Good Left Dorsiflexion (L4) 4 Good Plantarflexion (S1) 4 Good PT-OP-Q Treatments Start: 04/25/20 11:48 Freq: Status: Active Protocol: Document 06/05/20 15:15 DCW (Rec: 06/05/20 16:06 DCW [id number]) Cardio Equipment Recumbent Stepper (Sci-Fit) Duration (Minutes) 6 Resistance 3 Seat Position 12 Therapeutic Exercises Standing Exercises Hip Extension Standing Exercise Name Hip Extension Side bilateral Reps/Minutes 6x Hamstring Curls Standing Exercise Name Standing HS curls Side bilateral Resistance 2# Equipment Used // bars Other Exercises Resisted Side-stepping Other Exercise Name Sidestepping without band Comments *no band due to c/o pain Gait Training Gait Activity SPC training Description gait with SPC Device Used 2 SPC Level of Assistance SBA to CGA Surface level, firm Distance/Duration 190' x1 Comments cues for neutral posture, muscle activation sequencing. Neuro Re-Education Treatment Other Activities 1 Details Testing Comments Tinetti, MMT PT-OP-T Assessment and Plan Start: 04/25/20 11:48 Freq: Status: Active Protocol: Document 06/05/20 15:15 DCW (Rec: 06/05/20 16:06 [facility] [id number]) Physical Therapy Assessment Goals 5 Test Desk Trouble Locator Goal (LTG) Pt will perform progressive HEP including postural, flexibility, strengtheing, gait and balance exercises with I to increase mobility and decrease fall risk by 02/04. 11/24/2019: Pt demonstrates post-op TKA exercises listed above this date LTG Duration Met Four Test Desk Trouble Locator Goal (LTG) Pt will present with an improved LEF score to reflect improved functional use of legs by 02/05/2020. LTG Duration 9 weeks Three Impairment fall risk Test Desk Trouble Locator Goal (LTG) Patient score on Tinetti gait and balance assessment will improve from high risk category to low risk to improve her safety in the home and community LTG Duration - Improving Two Impairment gait dysfunction Short Term Goal (STG) Negative Zaki-Hallpike bilaterally STG Duration Met Test Desk Trouble Locator Goal (LTG) Patient will be able to ambulate 200' with the use of a single point cane safely LTG Duration 06/23/20 One Impairment LE weakness Short Term Goal (STG) Pt to be independent and complaint with an appropriate HEP STG Duration Met Detention Goal (LTG) Patient will demonstrate improvement in LE strength to at least 4+/5 for improved LE function and demonstrate independence and compliance to HEP LTG Duration 06/23/20 Assessment Summary Assessment Pt showing improvement in all areas, likely doing as well as she can with as limiting as her left knee is. Pt will return to skilled PT in one month for a new evaluation due to L TKA Physical Therapy Plan Frequency and Duration Frequency of Treatment 2x/Week Duration of Treatment 8 wks Plan of Care Start Date 04/25/20 Plan of Care End Date 06/24/20 Therapeutic Interventions Therapeutic Interventions Balance Training,Gait Training ,Home Exercise Program, Neuromuscular Re-education, Patient/Caregiver Education, Self-Care/Home Management, Taping,Therapeutic Activities, Therapeutic Exercises Modalities Electric Stimulation,Hot Packs Next Visit Focus/Plan Next Note Type Discharge Summary
== END 2020-06-07 07:30 | disposition home or self-care (01) ==
LOC: PHYS 15:15
PROVIDERS: Family Provider Family Medicine; PCP Internal Medicine; Referring Provider Internal Medicine; Visit Provider Internal Medicine
DX: I63.9 Cerebral infarction, unspecified (principal)
CPT/HCPCS: 97110; 97112; 97116; 97162

== ENCOUNTER → 2020-06-27 08:07 | Outpatient (CLI) | payer MEDICARE, SELFPAY ==
[2019-12-22 09:19] VITALS: BMI 41.2
[2020-06-27 08:37] LABS: Add Manual Diff / Slide Review NO; Basophils Absolute Auto 100 /uL (0-100); Basophils Percent Auto 1.3 % (0-2); Eosinophils Absolute Auto 800 /uL (0-450); Eosinophils Percent Auto 10.4 % (2-4); Hematocrit 42.4 % (36-46); Lymphocytes Absolute Auto 1800 /uL (1100-4500); Lymphocytes Percent Auto 23.3 % (25-40); Mean Corpuscular HGB Conc 32.9 % (30-36); Mean Corpuscular Volume 94.1 fL (80-100); Monocytes Absolute Auto 400 /uL (0-900); Monocytes Percent Auto 5.8 % (3-14); Neutrophils Absolute Auto 4500 /uL (1500-7000); Neutrophils Percent Auto 59.2 % (50-75); Platelet Count 257 X10^3/uL (150-400); Red Blood Cell Count 4.51 X10^6/uL (4.0-5.2); Red Cell Distribution Width 14.2 % (11.6-14.8); White Blood Cell Count 7.7 X10^3/uL (4.5-11.0)
[2020-06-27 09:18] LABS: Carbon Dioxide 32 mmol/L (22-32); Chloride 99 mmol/L (98-107); HEMOLYSIS < 15 (0-50); Potassium 4.2 mmol/L (3.4-5.1); Sodium 137 mmol/L (137-145)
== END ==
PROVIDERS: PCP Internal Medicine; Referring Provider Orthopaedic Surgery; Visit Provider Orthopaedic Surgery
DX: Z01.818 Encounter for other preprocedural examination (principal); Z01.812 Encounter for preprocedural laboratory examination
CPT/HCPCS: 36415; 80051; 85025

== ENCOUNTER → 2020-07-07 14:25 | Outpatient (CLI) | payer MEDICARE, SELFPAY ==
[2019-12-22 09:19] VITALS: BMI 41.2
[2020-07-08 22:54] LABS: COVID19 Sendout Not Detected (Not Detected)
== END ==
PROVIDERS: PCP Internal Medicine; Visit Provider Physician Assistant
DX: Z11.59 Encounter for screening for other viral diseases (principal)
CPT/HCPCS: 87635

== ENCOUNTER 2020-07-11 14:19 | Observation (INO) | payer MEDICARE, SELFPAY ==
[2019-12-22 09:19] VITALS: BMI 41.2
[2020-07-03 12:34] VITALS: BMI 40.8
[2020-07-10] VITALS (16 sets, daily range): BP systolic 108–161; BP diastolic 53–85; PULSE 69–87; RESP 12–20; TEMP 36–36.8; O2SAT 86–99; BMI 40.8
[2020-07-10] MEDS: CELECOXIB 200 MG CAPSULE PO (09:45)
[2020-07-10] MEDS: LACTATED RINGERS 1,000 ML 42 ML IV (09:57)
[2020-07-10] MEDS: PREGABALIN 75 MG CAPSULE PO ×2 (09:57)
[2020-07-10] MEDS: ACETAMINOPHEN 325 MG TABLET 975 MG PO (09:57)
--- NOTE | 2020-07-10 10:36 | PM.PREOP ---
Pre-operative Note COVID-19 COVID-19 status: Negative Result date/Date tested (Pos, Neg/Pending): 07/07/20 Interval Note History & Physical reviewed/Exam performed by Physician: Yes Changes to H&P: No
--- NOTE | 2020-07-10 10:36 | PM.OP.1 ---
Operative Date/Time/Diagnoses Date of procedure: 07/10/20 Time of procedure: 13:02 Pre-op diagnosis: Left knee arthritis Post-op diagnosis: same Procedure & Clinicians Procedure: Left total knee arthroplasty Same procedure as scheduled: Yes Indications: The patient presents today for total knee arthroplasty after failure of conservative treatment. The nature of the procedure including the risks and benefits, alternatives, postoperative course and expected outcome were discussed and all questions answered. Consent was obtained. Operative site confirmed and marked. Surgeon: Kain Bronson Adobe Layer Helper: Yousif Cates Click Yes if Unassisted: Yes Operative Notes Prosthetic devices, grafts, tissues, transplants, or devices: Dawit Persona TKA 6 CR femoral component, 5 stemmed tibial component, 9 polyethylene tray and 32 x 9 mm all poly patella. Procedure in detail: The patient was taken to the operative suite and placed under anesthesia. The patient was given prophylactic antibiotics prior to surgery. The patient was also given tranexamic acid, 1 g, just prior to surgery for postoperative hemostasis. The lateral knee was prepped and the joint injected with 20 mL of 1% Lidocaine with epinephrine. The knee was then prepped and draped in usual sterile fashion. The leg was exsanguinated with an Esmarch dressing and the tourniquet raised to 250 torr. A 15 cm anterior incision was made. Next a medial trivector arthrotomy was made. The extensor mechanism was marked to ensure accurate repair. Initial exposing dissection was carried out medially and laterally. The knee was then flexed and the intramedullary femoral guide annie placed. The distal femoral cut was made in 6? of valgus at the +0 position. The femoral size was measured and the appropriate cutting block was then placed and the anterior, posterior and chamfer cuts made. The intramedullary tibial alignment annie was then placed. The guide was set to remove approximately 9 mm from the less affected medial side. The proximal tibial cut was then made with an oscillating saw. All meniscus and bony debris was then removed. Posterior femoral osteophytes removed with a curved osteotome. Flexion extension gaps were checked. There was just slight tightness laterally. This was corrected using a pie crust technique with a 15 blade in the lateral capsule. The soft tissues were then injected with a combination of 20 mL of half percent Marcaine with epinephrine and 20 mL of Exparel. The trial components were then placed. The knee was then extended and the patellar thickness was measured and a cut made removing approximately 9 mm of bone. The patella was then sized and drilled. Some excess lateral bone was excised and the patellofemoral ligament released. The knee went into full extension and flexion beyond 130?. There was excellent medial-lateral balance throughout motion. Patellar tracking was good. The trial components were removed and the knee was cleansed with Pulsavac irrigation and dried. The final components were cemented with high viscosity vacuum mixed bone cement with antibiotics. The joint was filled with a dilute Betadine solution. The knee was held in extension and the patellar clamped until the cement was adequately cured. The knee was then irrigated. The extensor mechanism was closed with 5 interrupted #1 Vicryl sutures and a running Quill suture at approximately 90 degrees of flexion. The joint was then injected with a combination of 1 g of tranexamic acid and 20 mL of quarter percent Marcaine with epinephrine. The subcutaneous tissue was closed with 2 0 Vicryl. The skin was closed with absorbable subcuticular sutures and surgical adhesive. An delvis dressing and Juan Jose wrap were then applied. The patient tolerated the procedure well and was returned to recovery room in good condition. Post-operative Plan for aftercare: [facility] Joint Care Protocol.
--- NOTE | 2020-07-10 10:48 | DI.RAD.S_ITS ---
PROCEDURE: XR KNEE LT 1TO2V INDICATIONS: total knee TECHNIQUE: 2 view(s) of the knee acquired. COMPARISON: [facility], NAN, XR KNEE LT 3V, 09/19/2019, 14:56. [facility], NAN, KNEE 3V RIGHT, 08/18/2016, 19:43. FINDINGS: Bones: Patient is status post knee joint arthroplasty. Hardware components are in expected positions. Visualized bony structures are intact. Soft tissues: Overlying postoperative changes are noted. IMPRESSION: Normal alignment after left total knee arthroplasty. Dictated by: Baldev Randle M.D. on 07/10/2020 at 14:51 Approved by: Baldev Randle M.D. on 07/10/2020 at 14:51
[2020-07-10] MEDS: CEFAZOLIN 2 GM/100 ML FROZ.PIGGY IV (11:30)
--- NOTE | 2020-07-10 12:07 | SUR.OPER ---
Supine on padded OR bed. Pillow under head, arms secured on padded armboards <90 degree abduction. Safety belt across torso. Non-operative leg secured with tape over blanket over lower leg. Operative leg secured in DeMayo/Rahul positioner. Foam padded brace at thigh of operative leg.
[2020-07-10] MEDS: BUPIVACAINE 0.25% W/ EPI (PF) 40 ML, BUPIVACAINE LIPOSOME 266 MG, SODIUM CHLORIDE 0.9% ... INJ (12:22)
[2020-07-10] MEDS: BUPIVACAINE 0.25% W/ EPI (PF) 20 ML, TRANEXAMIC ACID 1,000 MG, SODIUM CHLORIDE 0.9% 10 ML INJ (12:23)
[2020-07-10] MEDS: TRANEXAMIC ACID 1,000 MG VIAL 1000 MG INJ (12:24)
[2020-07-10] MEDS: LIDOCAINE 1% W/EPI 20 ML INJ (12:24)
[2020-07-10] MEDS: LACTATED RINGERS 1,000 ML 100 ML IV (14:28)
[2020-07-10] MEDS: ACETAMINOPHEN 325 MG TABLET 650 MG PO ×2 (14:44→20:25)
--- NOTE | 2020-07-10 15:00 | PT.IIE ---
Current Diagnoses Unilateral primary osteoarthritis, left knee (07/10/20) Surgery Performed Operation Date: 07/10/20 10:45 Actual Procedures p Total Knee Arthroplasty(Left) - Kain Bronson MD Surgical History (Last Updated 07/03/20 @ 13:07 by Nini Carroll, RN) History of carpal tunnel release (Acute) History of knee replacement (2003) History of surgery (Acute) History of surgery (Acute) Hx of arthroscopy of right knee (Acute) Hx of laminectomy (Acute) S/P total abdominal hysterectomy and bilateral salpingo-oophorectomy Status post delivery Medical History (Last Updated 07/03/20 @ 13:03 by Nini Carroll RN) Abnormal EKG (Acute) Carpal tunnel syndrome (Resolved ~2005) Chronic renal failure, stage 2 (mild) (Chronic) Colon polyps (Resolved 02/2007) CVA (cerebral vascular accident) (Acute 12/06/19) Degenerative arthritis of left knee (Acute) Diabetes (Chronic Unknown) Fatigue (Acute) Hyperlipemia (Chronic Unknown) Hypertension (Chronic Unknown) Leg swelling (Acute) Low back pain (Chronic ~2015) Osteoarthritis (Chronic Unknown) Status post stroke (Inactive) Unilateral primary osteoarthritis, left knee (Acute) Physical Therapy Inpatient Evaluation/Re-Eval M1 PT/OT-IP Prior Functional Status Start: 07/10/20 16:48 Freq: NEEDED Status: Active Protocol: Document 07/10/20 15:00 AB (Rec: 07/10/20 17:06 AB [id number]) Medical Review Prior Functional Status Medical History Reviewed Yes Communication able to make needs known Mobility and Gait pt stated that she is modified independent with mobility at home using 4WW Prior Functional Level (Other details) pt stated that she had a CVA last november 2019 and has residual R sided weakness and is still recovering from it. after hospitalization, she went [facility] and went home and received homehealth PT and was going to start his outpt PT but due to covid, was stopped and just again started . pt is set up for outpt PT. Social History Household Members spouse Living Arrangements House Number of Floors (Floors) Two Floors Number of Stairs To Enter/Railing? pt stays on main level of the house has 5 steps to etner with B rails Home Environment Standard Height Toilet,Walk in Shower Home Equipment Front Wheel Walker,Four Wheel Walker,Raised Toilet Seat Without Armrests,Shower Seat without Backrest,Leg Liaison Officer, Grab Bars Near Toilet,Grab Bars In Shower M2 PT-IP Current Condition Start: 07/10/20 16:48 Freq: NEEDED Status: Active Protocol: Document 07/10/20 15:00 AB (Rec: 07/10/20 17:06 [email or web address]) Physical Therapy Current Condition Current Condition Evaluation Date 07/10/20 Treatment Diagnosis s/p L TKA; difficulty in walking Onset Date 07/10/20 Weight Bearing Status Weight Bearing Status Weight Bear as Tolerated Allowed Weight Bearing Amount (enter % WBAT LLE or #) (%) M3 PT-IP Subjective Start: 07/10/20 16:48 Freq: NEEDED Status: Active Protocol: Document 07/10/20 15:00 AB (Rec: 07/10/20 [facility] Subjective Physical Therapy Visit Type Type Initial Evaluation Visit Start Time 15:00 Visit Stop Time 15:43 Total Visit Minutes 43 Number of BODY WORK AUTO TRIMMER Visits 0 Physical Therapy Visit Comments Patient Comments pt is agreeable to do PT; requesting to use the toilet Therapy Pain Assessment Pain When Pain Assessed At Rest Pain Present Pain Present Pain Reported Location Lower Back Intensity 8 Pain Management Techniques Modification of Treatment,Re- positioning,Timing of Activity with Medications Left Knee Scale Used pain scale not stated Pain Management Techniques Apply Cold,Modification of Treatment,Re-positioning, Timing of Activity with Medications M4 PT-IP Mobility and Gait Start: 07/10/20 16:48 Freq: NEEDED Status: Active Protocol: Document 07/10/20 15:00 AB (Rec: 07/10/20 17:06 [facility] PT-Bed Mobility Assessment Supine to Sit Supine to Sit Minimal Assistance,1 Person Assistance,Head of Bed Elevated,Bedrails PT-Transfer Assessment Sit to and From Stand Sit to and from Stand Maximum Assistance,1 Person Assistance,Use of Upper Extremities Equipment Transfer Assistive Device Gait Belt,Front Wheeled Walker Orthotic/Prosthetic Devices or Brace: No Transfers Transfer Destination Toilet Transfer Technique ambulated using FWW Transfer Ability Level of Assist Moderate Assistance,1 Person Assistance,Use of Upper Extremities Comments Mobility Comments pt c/o back pain and refused to get up with the bed flat stated that she cannot do it for now due to back pain and want HOB elevated. completed supine to sit HOB elevated and pt used bed rail to assist required min A and increase time to complete task. completed sit to stand from EOB max A and cues. ambulated to the toilet using FWW mod A and cues. completed sit to stand from the toilet using grab bar max A x 1-2 and max cues and pt ambulated towards the chair using FWW mod A and cues. positioned on chair. call light and table placed within reach. Gait Assessment Gait Gait Assistance Required: Moderate Assistance Distance (Feet) 12 Able to Maintain Weight Bearing Status Yes During Gait Assistive Devices Assistive Device Gait Belt,Front Wheeled Walker Orthotic/Prosthetic Devices or Brace: No Gait Deviations General Gait Pattern Antalgic,Decreased Stride Length,Decreased Feet Clearance,Step-to Gait Factors Limiting Gait Function Factors Limiting Gait Function Decreased Activity Tolerance, Decreased Strength,Limited Range of Motion,Pain,Poor Balance,Poor Safety Awareness Comments Gait Comments pls refer to mobility section for details PT-Balance Assessment Sitting Balance and Reactions Static Sitting Balance Ability Good Dynamic Sitting Balance Ability Fair Standing Balance and Reactions Static Standing Balance Ability Poor Dynamic Standing Balance Ability Poor Device Used FWW M5 PT-IP Objective Assessments Start: 07/10/20 16:48 Freq: NEEDED Status: Active Protocol: Document 07/10/20 15:00 AB (Rec: 07/10/20 17:06 [email or web address]) Orientation Orientation/Cognition Level of Alertness Alert Orientation Name,Place,Situation Language Function Ability Hard of Hearing Safety Awareness Decreased Safety Awareness Memory Description Short Term Impaired Gross Range of Motion Lower Extremity ROM Assessment Left Impaired Impairments L knee flexion tightness Strength Lower Extremity Strength Assessment Left Impaired Hip 4-/5 Knee 3+/5 Coordination Assessment Gross Coordination Gross Coordination WNL Muscle Tone Muscle Tone WNL Yes M6 PT-IP Treatment Start: 07/10/20 16:48 Freq: NEEDED Status: Active Protocol: Document 07/10/20 15:00 AB (Rec: 07/10/20 17:06 [email or web address]) Physical Therapy Treatment Education Education Provided Precautions,Weight Bearing Status,Post-Op Packet,Safety M7 PT-IP Assessment and Plan Start: 07/10/20 16:48 Freq: NEEDED Status: Active Protocol: Document 07/10/20 15:00 AB (Rec: 07/10/20 17:06 AB [email or web address]) PT Summary Assessment and Plan Potential Rehabilitation Potential Good Status of Condition at Evaluation Evolving Summary Impairments Pain,ROM,Strength,Balance, Coordination,Sensation,Tone, Cognition,Bed Mobility, Transfers,Gait,Activity Tolerance Assessment Summary pt requiring max A for transfers and mod A for ambulation. pt s/p L TKA and just had surgery this morning. d/c plan depending on progress. will conduct caregiver training when appropriate and will have to conduct stair climbing training as well. will continue to asssess progress for safe d/c plan. Goals Bed Mobility Goal Independent Transfer Goal Independent,Front Wheeled Walker Gait Goal Independent,Front Wheel Walker Gait Distance 100 Other Goals up/down 5 steps B rails CGA Days to Meet Goals 5 Frequency of Treatment Frequency Of Treatment Twice a Day Treatment Plan Physical Therapy Treatment Plan Bed Mobility Training,Transfer Training,Gait Training, Therapeutic Exercise,Balance Retraining,Post Op Education, Discharge Planning,Hot or Cold Pack,Neuromuscular Re-ed, Coordination Retraining,Manual Therapy Recommendations To Nursing Amount of Assist Needed 1 Person Assist Discharge Recommendations PT Discharge Recommendations Home with Assistance,Home Health,SNF Rehab Other Discharge Recommendations depending on progress: enrique eiwht assist/HHPT vs SNF rehab Transportation Needs at Discharge Private Vehicle,Wheelchair/ Cabulance
[2020-07-10] MEDS: HYDROMORPHONE 2 MG TABLET PO ×2 (15:58→22:51)
[2020-07-10] MEDS: METFORMIN HCL 500 MG TABLET 1000 MG PO (17:20)
[2020-07-10] MEDS: IBUPROFEN 400 MG TABLET PO ×2 (17:20→20:26)
[2020-07-10] MEDS: SODIUM CHLORIDE 0.9% 1,000 ML 125 ML IV (18:44)
[2020-07-10] MEDS: lisinopriL 20 MG TABLET 40 MG PO (20:26)
[2020-07-10] MEDS: DOCUSATE 100 MG CAPSULE PO (20:26)
[2020-07-10] MEDS: ASPIRIN EC 81 MG TABLET PO (20:27)
[2020-07-10] MEDS: carvediloL 6.25 MG TABLET PO (20:27)
[2020-07-10] MEDS: CLINDAMYCIN 900 MG/50 ML PIGGYBACK 50 MG IV (20:27)
[2020-07-10] MEDS: INSULIN ASPART 100 UNIT/ML INSULN PEN SUBCUT (20:31)
[2020-07-10] MEDS: glipiZIDE XL 5 MG TAB PO (20:33)
[2020-07-10] MEDS: BUDESONIDE 90mcg FLEXHALER (60 PUFF/DEVICE) INH (20:44)
--- NOTE | 2020-07-10 21:51 | PC.NURSE ---
pt's blood sugar was elevated 343 then 335 after metformin. pt on IVF LR@ 125cc/hr. notfied Dr. Pace, VTO to switch LR to NS and place pt on novolog medium sliding scale ACHS.
[2020-07-10] MEDS: ATORVASTATIN 20 MG TABLET 40 MG PO (22:34)
[2020-07-11] VITALS (8 sets, daily range): BP systolic 97–134; BP diastolic 45–72; PULSE 67–78; RESP 16–18; TEMP 36.2–36.8; O2SAT 94–98
--- NOTE | 2020-07-11 02:38 | PC.NURSE ---
Patient is alert and oriented. Breath sounds CTA with RA sat of 99%. HRR. Denies nausea. BT present and is passing flatus. Denies dysuria, frequency or urgency but does dribble urine. Is able to move self in bed. Needs 1 assist + walker when getting out of bed but doing well with weight bearing and remembering total knee precautions. FELICE dressing wrapped with bruno to left knee is CDI; light flashing gree. Has reddish/pink, dry, scaly skin on bilateral LE. 1+ edema present bilaterally; states she normally wears ANTONY stockings. Denies pain and refusing scheduled Ibuprofen. CMS is intact although has chronic neuropathy in bilateral feet. CBG at 0200 was 238 which is down from earlier readings. Wearing bilateral calf SCD's. Fall risk score is high and bed alarm is activated.
[2020-07-11] MEDS: CLINDAMYCIN 900 MG/50 ML PIGGYBACK 50 MG IV (04:07)
[2020-07-11 06:18] LABS: Hematocrit 38.1 % (36-46); Hemoglobin 12.5 g/dL (12.0-16.0)
[2020-07-11] MEDS: DOCUSATE 100 MG CAPSULE PO ×2 (08:22→21:59)
[2020-07-11] MEDS: METFORMIN HCL 500 MG TABLET 1000 MG PO ×2 (08:23→16:53)
[2020-07-11] MEDS: ACETAMINOPHEN 325 MG TABLET 650 MG PO ×3 (08:23→22:00)
[2020-07-11] MEDS: ASPIRIN EC 81 MG TABLET PO ×2 (08:24→22:00)
[2020-07-11] MEDS: carvediloL 6.25 MG TABLET PO ×2 (08:24→21:59)
[2020-07-11] MEDS: AMLODIPINE 5 MG TABLET 10 MG PO (08:24)
[2020-07-11] MEDS: POTASSIUM CHLORIDE 20 MEQ TAB PO (08:25)
[2020-07-11] MEDS: SODIUM CHLORIDE 0.9% FLUSH 10 ML IV ×2 (08:25→22:01)
[2020-07-11] MEDS: INSULIN ASPART 100 UNIT/ML INSULN PEN SUBCUT ×3 (08:26→16:53)
[2020-07-11] MEDS: glipiZIDE XL 5 MG TAB PO ×2 (08:28→22:13)
--- NOTE | 2020-07-11 10:00 | PM.DS.1 ---
History of Present Illness History of Present Illness Date Patient Seen: 07/11/20 Time Patient Seen: 10:00 Chief complaint: Left Total Knee Arthroplasty *OPB* Narrative: Patient's pain is mild. No fever chills. No nausea vomiting. Patient's is home to assist her. Patient does have 5 steps into her house. Patient would like to go home today if cleared by physical therapy. Otherwise without complaints. Discharge Providers Provider Discharge Date: 07/11/20 Primary care physician: Noah Jorgensen MD Consults: 07/10/20 14:00 Consult to Discharge Planning Routine Comment: Consult to Physical Therapy Evaluate & Treat Comment: Physician Instructions: postop TKA protocol Consult to Respiratory Therapy Evaluate & Treat Comment: Physician Instructions: Evaluate and treat Discharge provider: Yousif Cates PA-C Summary Hospital Course Discharge Diagnosis: Left knee osteoarthritis Hospital Course: [address] [address] Operative Note Patient: Miracle Greco DMR#: [id number] : 4Acct:[id number] Age/Sex: 75 / F Date of Service: 07/10/20 Provider: Kain Bronson MD Operative Date/Time/Diagnoses Date of procedure: 07/10/20 Time of procedure: 13:02 Pre-op diagnosis: Left knee arthritis Post-op diagnosis: same Procedure & Clinicians Procedure: Left total knee arthroplasty Same procedure as scheduled: Yes Indications: The patient presents today for total knee arthroplasty after failure of conservative treatment. The nature of the procedure including the risks and benefits, alternatives, postoperative course and expected outcome were discussed and all questions answered. Consent was obtained. Operative site confirmed and marked. Surgeon: Kain Bronson Trains Dispatcher Supervisor: Yousif Cates Click Yes if Unassisted: Yes Patient admitted to the hospital for left total knee arthroplasty. Patient taken to the operating room after consent obtained. Patient left total knee arthroplasty. No complications. Patient recovering well. Patient will be discharged home today if cleared by physical therapy. Exam Vital Signs (past 8 hours): - 07/11/20 04:41 07/11/20 08:35 Temperature 97.1 F L Pulse Rate 67 Respiratory Rate 18 Blood Pressure 97/58 L 116/45 L Pulse Oximetry 96 Oxygen Delivery Method Room Air Oxygen Flow Rate 0 Narrative Exam Narrative: Pleasant 75-year-old female sitting in bedside chair in no apparent distress. Left knee dressing is clean, dry and intact. Eunice dressing is on and functioning. Left leg is warm and dry. Motor functions intact distally. Sensation grossly intact to light touch. Objective Labs Result Diagrams: 07/11/20 05:00 Labs: Laboratory Results - last 24 hr 07/11/20 05:00 Hgb 12.5 Hct 38.1 Discharge Assessment & Plan Assessment and Plan Assessment: Postop day 1 status post left total knee arthroplasty. Patient progressing as expected. Discharge home if cleared by for PT. Discharge Plan Discharge Plan Patient Disposition: Home Discharge comment: DC home if cleared by PT Discharge Med Rec/Prescriptions Prescriptions: New acetaminophen 325 mg Tablet 650 mg PO TID Qty: 60 RF: 0 tramadol 50 mg Tablet 50 mg PO QID PRN (Reason: Pain, Moderate (4-6)) Qty: 30 RF: 0 Continued cyanocobalamin (vitamin B-12) 1,000 mcg capsule 1,000 mcg PO QNOON RF: 0 albuterol sulfate [Proventil HFA] 90 MCG/PUFF HFA aerosol inhaler 0.09 mg IH PRN PRN (Reason: Shortness Of Breath) Qty: 0 RF: 0 multivitamin Capsule 1 cap PO DAILY Qty: 0 RF: 0 turmeric 400 mg Capsule 1,000 mg PO DAILY Qty: 0 RF: 0 glipizide 5 mg tablet extended release 24hr 5 mg PO BID Qty: 180 RF: 3 chlorthalidone 25 mg tablet See Rx Instructions .ROUTE .COMPLEX Qty: 90 RF: 0 (DME) one touch glucose meter Qty: 1 RF: 0 lisinopril 20 mg tablet 40 mg PO BID Qty: 360 RF: 1 atorvastatin 40 mg tablet 40 mg PO .q evening Qty: 90 RF: 1 estradiol 0.5 mg tablet See Rx Instructions .ROUTE .COMPLEX Qty: 90 RF: 3 metformin 1,000 mg tablet See Rx Instructions .ROUTE .COMPLEX Qty: 180 RF: 0 amlodipine 10 mg tablet 10 mg PO DAILY Qty: 90 RF: 3 Pulmicort Flexhaler 180 mcg/actuation aerosol powdr breath activated 1 inhalation inhalation BID RF: 0 carvedilol 6.25 mg tablet 6.25 mg PO BID RF: 0 magnesium oxide 400 mg magnesium tablet 400 mg PO BID RF: 0 miconazole nitrate 2 % cream 1 applictn TOP BID PRN (Reason: Breakout) RF: 0 celecoxib [Celebrex] 100 mg Capsule 100 mg PO BID PRN (Reason: pain) RF: 0 potassium chloride 20 mEq Tablet Extended Release 20 meq PO DAILY RF: 0 tramadol 50 mg tablet 50 mg PO Q8H PRN (Reason: Pain) RF: 0 aspirin 81 mg Tablet,Delayed Release (Dr/Ec) 81 mg PO DAILY RF: 0 cholecalciferol (vitamin D3) [Vitamin D3] 25 mcg (1,000 unit) Capsule 25 mcg PO DAILY RF: 0 Follow up/Referrals: Kain Bronson MD [Physician] - 2 Weeks Discharge Orders: Discharge (Order); Ordered 07/11/20 Ordered By: Yousif Cates Provider Discharge Instructions Diet: Regular Activity: The progress weight-bearing and activity as tolerated. Daily knee range of motion exercises. Cold/Heat Therapy: May ice the knee for 20 minutes at a time as needed for pain. Skin/Wound/Dressing Care Report to your healthcare provider any signs of infection, such as:: chills, fever, increased pain, unusual drainage and unusual redness Dressing: May leave dressing in place until follow-up. May shower over the dressing. Visit Report/Discharge Packet Instructions: DI for Knee Replacement Stand Alone Forms: Surgery Discharge Discharge Data Primary Care Provider: Noah Jorgensen Attending Provider: Kain Bronson Quality VTE Deep Vein Thrombosis/Pulmonary Embolism Present on Admission: No
--- NOTE | 2020-07-11 10:20 | PT.IPTN ---
Current Diagnoses Unilateral primary osteoarthritis, left knee (07/10/20) Surgery Performed Operation Date: 07/10/20 10:45 Actual Procedures p Total Knee Arthroplasty(Left) - Kain Bronson MD Physical Therapy Treatment Note M2 PT-IP Current Condition Start: 07/10/20 16:48 Freq: NEEDED Status: Active Protocol: Document 07/10/20 15:00 AB (Rec: 07/10/20 17:06 AB [email or web address]) Physical Therapy Current Condition Current Condition Evaluation Date 07/10/20 Treatment Diagnosis s/p L TKA; difficulty in walking Onset Date 07/10/20 Weight Bearing Status Weight Bearing Status Weight Bear as Tolerated Allowed Weight Bearing Amount (enter % WBAT LLE or #) (%) M3 PT-IP Subjective Start: 07/10/20 16:48 Freq: NEEDED Status: Active Protocol: Document 07/11/20 09:50 SP (Rec: 07/11/20 12:12 SP [id number]) Subjective Physical Therapy Visit Type Type Treatment Note Visit Start Time 09:50 Visit Stop Time 10:20 Total Visit Minutes 30 Notes in room to attend cargiver training and provided physical assist throughout tx . Number of AUTOMOTIVE PRODUCT ENGINEER Visits 1 Physical Therapy Visit Comments Patient Comments Pt agreeable to working with PT. Therapy Pain Assessment Pain When Pain Assessed At Rest Pain Present Pain Present Pain Reported Location Lower Back Intensity 3 Scale Used 3/10 at rest, 7-8/10 during mobility. Description Acute,Pinching,With Movement Pain Behaviors Facial Grimacing,Guarding, Wincing Pain Management Techniques Apply Cold,Re-positioning, Timing of Activity with Medications M4 PT-IP Mobility and Gait Start: 07/10/20 16:48 Freq: NEEDED Status: Active Protocol: Document 07/11/20 09:50 SP (Rec: 07/11/20 12:12 SP [id number]) PT-Bed Mobility Assessment Sit to Supine Sit to Supine Minimal Assistance,1 Person Assistance,Bedrails Scooting Scooting Up and Down in Bed Moderate Assistance PT-Transfer Assessment Sit to and From Stand Sit to and from Stand Moderate Assistance,1 Person Assistance,Use of Upper Extremities Equipment Transfer Assistive Device Gait Belt,Front Wheeled Walker Transfers Transfer Destination Bed Transfer Ability Level of Assist Contact Guard Assistance,1 Person Assistance,Use of Upper Extremities Comments Mobility Comments Pt was seated reclined in chair with and PA present in room when arrived discussing DC plans if able to mobilize gait and stairs today. Pt reported L knee pain 3/10 upon arrival and bruno bandaging little to tight at upper thigh. AUTOMOTIVE PRODUCT ENGINEER readjusted bruno bandaging looser with good feedback comfort. Reviewed post op exercises: quad set, ankle pumps, SLR , modified heel slide reclined in chair. Assisted lower chair with BLE supported on floor, no physical support required for LLE. Education provided proper use of gait belt, donned on pt, sit > stand BUE push from chair arms requiring Mod A of 1 successful on 2nd attempt with cuing for hip hinge. Cuing for WBAT BLE, pt hesitant initially WB through LLE, cuing wt shift for awareness of stability knee extension pre gait. Pt was ableto walk around end of bed toward door then required needing to sit at L side of bed due to increased pain 7-8/ 10 CGA by using FWW step to gait patterning, cuing for knee flexion and heel toe gait phases heavy WB through BUE. Pt demostrated SPT at EOB and backing fully w/ FWW, cued for reaching back prior for slow descent, CGA. Pt commented I am having alot more pain, I think I need that tramedol now, I can't do any more. AUTOMOTIVE PRODUCT ENGINEER notified nursing for med pain mgt. Sitting > supine Min A for BLE support in bed then Min A to scoot up stabilizing LLE for self support while using BUE on bed rails. Pt tired quickly so AUTOMOTIVE PRODUCT ENGINEER and used transfer pad to assist pt while using LLE and BUE on bed rails to scoot Min A of 2. Placed pillows under B lower leg while allowing knee extension, applied SCDs and CP for assist with pain control. Pt to continue acute rehab this afternoon to work on progressing tolerance with gait and assess stair mgt with pain med mgt as toleranted. Will continue assess progress. AUTOMOTIVE PRODUCT ENGINEER notified nurse pt's pain and continue need for PT this afternoon. NUrse was in room with when left. Call light, bed alarmed and all needs in reach before left. Gait Assessment Gait Gait Assistance Required: Contact Guard Assist,1 Person Assist Distance (Feet) 15 Able to Maintain Weight Bearing Status Yes During Gait Assistive Devices Assistive Device Gait Belt,Front Wheeled Walker Orthotic/Prosthetic Devices or Brace: No Gait Deviations General Gait Pattern Antalgic,Decreased Stride Length,Decreased Feet Clearance,Step-to Gait Factors Limiting Gait Function Factors Limiting Gait Function Decreased Activity Tolerance, Decreased Strength,Limited Range of Motion,Pain,Poor Balance,Poor Safety Awareness Comments Gait Comments See mobilility comments for details. Stair Climbing Assessment Comments Stair Climbing Comments Unable to assess due to decreased pain tolerance during shorte distance gait in room. Defer to pm treatment. PT-Balance Assessment Sitting Balance and Reactions Static Sitting Balance Ability Good Dynamic Sitting Balance Ability Good Standing Balance and Reactions Static Standing Balance Ability Fair Dynamic Standing Balance Ability Poor Device Used FWW M5 PT-IP Objective Assessments Start: 07/10/20 16:48 Freq: NEEDED Status: Active Protocol: Document 07/10/20 15:00 AB (Rec: 07/10/20 17:06 AB [email or web address]) Orientation Orientation/Cognition Level of Alertness Alert Orientation Name,Place,Situation Language Function Ability Hard of Hearing Safety Awareness Decreased Safety Awareness Memory Description Short Term Impaired Gross Range of Motion Lower Extremity ROM Assessment Left Impaired Impairments L knee flexion tightness Strength Lower Extremity Strength Assessment Left Impaired Hip 4-/5 Knee 3+/5 Coordination Assessment Gross Coordination Gross Coordination WNL Muscle Tone Muscle Tone WNL Yes M6 PT-IP Treatment Start: 07/10/20 16:48 Freq: NEEDED Status: Active Protocol: Document 07/11/20 09:50 SP (Rec: 07/11/20 12:12 SP [id number]) Physical Therapy Treatment Exercises Exercises Ankle Pumps,Gluteal Sets,Quad Sets,Straight Leg Raises, Seated Knee Flexion/Extension Knee ROM Measurement 80 deg sitting Education Education Provided Precautions,Weight Bearing Status,Post-Op Packet,Safety M7 PT-IP Assessment and Plan Start: 07/10/20 16:48 Freq: NEEDED Status: Active Protocol: Document 07/11/20 09:50 SP (Rec: 07/11/20 12:12 SP [id number]) PT Summary Assessment and Plan Potential Rehabilitation Potential Good Status of Condition at Evaluation Evolving Summary Impairments Pain,ROM,Strength,Balance, Coordination,Sensation,Tone, Cognition,Bed Mobility, Transfers,Gait,Activity Tolerance Progress Towards Goals Slow Progress due to Pain,Slow Progress due to Activity Tolerance Assessment Summary Pt requiring Mod A for transfers, CGA for ambulation around room only, Min A for Le support into bed, Min x2 scoot up in bed. Conducted caregiver training with providing physical assist including bed mobility, transfer, gait, unable to attempt stairs due to 8/10 pain LLE during wB short distance. Will assess stair climbing training in pm if tolerated. Will continue to asssess progress for safe d/c plan, patient hope going home with to assist her. Goals Bed Mobility Goal Independent Transfer Goal Independent,Front Wheeled Walker Gait Goal Independent,Front Wheel Walker Gait Distance 100 Other Goals up/down 5 steps B rails CGA Days to Meet Goals 5 Frequency of Treatment Frequency Of Treatment Twice a Day Treatment Plan Physical Therapy Treatment Plan Bed Mobility Training,Transfer Training,Gait Training, Therapeutic Exercise,Balance Retraining,Post Op Education, Discharge Planning,Hot or Cold Pack,Neuromuscular Re-ed, Coordination Retraining,Manual Therapy Other Recommendations and Next Treatment ambulation further distance, 5 Focus step stair climbing, 4 WW if safe Recommendations To Nursing Amount of Assist Needed 1 Person Assist Discharge Recommendations PT Discharge Recommendations Home with Assistance,Home Health,SNF Rehab Other Discharge Recommendations depending on progress: home with assist/HHPT vs SNF rehab Transportation Needs at Discharge Private Vehicle,Wheelchair/ Cabulance
[2020-07-11] MEDS: TRAMADOL 50 MG TABLET PO (10:23)
[2020-07-11] MEDS: BUDESONIDE 90mcg FLEXHALER (60 PUFF/DEVICE) INH ×2 (10:24→21:59)
--- NOTE | 2020-07-11 11:18 | CM.DANOTE ---
DCP: Case received, EMR reviewed and met with patient. Introduced self and role. Was able to obtain information from patient regarding her baseline activity status, health information, and living situation. DCP assessment completed with information currently available. Patient is a 75 year old female who admitted yesterday morning to the care of the orthopedic team. PCP: Dr. Jorgensen. Payer: confirmed: [facility]. Patient came to the hospital via private vehicle for a surgical procedure. She had left total knee arthroplasty. Patient has had chronic knee pain secondary to her history of osteoarthritis. Met with patient in her room. She had already been up with P.T. She is alert and oriented. She resides in [place] with her spouse, Bois D Arc. She indicated, he is very supportive. 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 Her is an general engineer. Patient indicated that she does have some stairs in the home, but should be able to navigate them. She has four wheel walker that she normally uses, but also has a FWW walker and WC as well. Her shower is set up with a bench. P: Patient is supposed to be discharged home today after she works with P.T. Alexandra Gage RN/Meeting Facilitator
[2020-07-11] MEDS: CHLORTHALIDONE 25 MG TABLET PO (12:11)
[2020-07-11] MEDS: IBUPROFEN 400 MG TABLET PO ×3 (13:45→22:01)
--- NOTE | 2020-07-11 15:40 | PT.IPTN ---
Current Diagnoses Unilateral primary osteoarthritis, left knee (07/11/20) Surgery Performed Operation Date: 07/10/20 10:45 Actual Procedures p Total Knee Arthroplasty(Left) - Kain Bronson MD Physical Therapy Treatment Note M2 PT-IP Current Condition Start: 07/10/20 16:48 Freq: NEEDED Status: Active Protocol: Document 07/10/20 15:00 AB (Rec: 07/10/20 17:06 AB [id number]) Physical Therapy Current Condition Current Condition Evaluation Date 07/10/20 Treatment Diagnosis s/p L TKA; difficulty in walking Onset Date 07/10/20 Weight Bearing Status Weight Bearing Status Weight Bear as Tolerated Allowed Weight Bearing Amount (enter % WBAT LLE or #) (%) M3 PT-IP Subjective Start: 07/10/20 16:48 Freq: NEEDED Status: Active Protocol: Document 07/11/20 15:38 SP (Rec: 07/11/20 16:27 SP [id number]) Subjective Physical Therapy Visit Type Type Treatment Note Visit Start Time 15:02 Visit Stop Time 15:40 Total Visit Minutes 38 Notes attended and provided physical assistance during tx. Physical Therapy Visit Comments Patient Comments pt agreeable to working with PT. Therapy Pain Assessment Pain When Pain Assessed At Rest Pain Present Pain Present Pain Reported Location Left Knee Intensity 3 Scale Used 3/10 at rest, 8/10 with mobility, clicking L knee Description Acute,Pinching,With Movement Pain Behaviors Facial Grimacing,Guarding, Moaning,Wincing Pain Management Techniques Apply Cold,Re-positioning, Timing of Activity with Medications M4 PT-IP Mobility and Gait Start: 07/10/20 16:48 Freq: NEEDED Status: Active Protocol: Document 07/11/20 15:38 SP (Rec: 07/11/20 16:27 SP [id number]) PT-Bed Mobility Assessment Sit to Supine Sit to Supine Moderate Assistance,1 Person Assistance,Bedrails Scooting Scooting Up and Down in Bed Moderate Assistance PT-Transfer Assessment Sit to and From Stand Sit to and from Stand Moderate Assistance,1 Person Assistance,Use of Upper Extremities Equipment Transfer Assistive Device Gait Belt,Front Wheeled Walker Orthotic/Prosthetic Devices or Brace: No Transfers Transfer Destination Bed,Wheelchair Transfer Technique ambulated using FWW Transfer Ability Level of Assist Contact Guard Assistance,1 Person Assistance,Use of Upper Extremities Comments Mobility Comments Pt was reclined sitting in chair when arrived. [employer] assisted lowering chair leg rests (it's quick to move) CG- Min A for LLe support. Sit<> stand Mod A of 1 () via gait belt to stand x3 attempts before came to standing and impulsive quick BUE grab FWW, cued scoot to EO chair, RLE under chair and hip hinge forward. Once in standing pt ambulated further distance to w/c outside door approx 20 ft using FWW, cuign by for postioning awareness back to chair then slow descent Min A. Educated patient and hip hinge slow descent fro safety and muscular control. Pushed patient down to stairs. Pt complete ascend/descend 3 stairs using BHR step to patterning requiring Mod A of 1 during RLE concentric knee extension for support. Pt had difficult with L knee flexion to clear foot onto step improved with cuing and AROM awareness. CGA- Min descending , pt unableto complete 2nd set to assimulate 5 stairs has at home secondary to pain in LLE , requested to sit back in w/c , CGA SPT and Min for slow descent in to chair. When pt returned to room stated can only SPT at EOB, pain is to much to walk further distance in room. STS Mod A then SPT w/ c> bed CGA, stand>sit on EOB Min. sit>supine Mod A BLE into bed and repositioning LLE by then Min A for support RLE stable in flexion with BUE on bed rail able to center and scoot up in bed herself. Donned CP, SCDs, with call light, alarm armed and all needs in reach before left. Pt would benefit further acute PT and another night stay for assist with pain control and LE strength, ROM and WB activities to progress further distance gait and 5 step stairs mgt. Will continue to assess and update progress. Pt planning on returning home with to assist her. Gait Assessment Gait Gait Assistance Required: Contact Guard Assist,1 Person Assist Distance (Feet) 20 Able to Maintain Weight Bearing Status Yes During Gait Assistive Devices Assistive Device Gait Belt,Front Wheeled Walker Orthotic/Prosthetic Devices or Brace: No Gait Deviations General Gait Pattern Antalgic,Decreased Stride Length,Decreased Feet Clearance,Step-to Gait Factors Limiting Gait Function Factors Limiting Gait Function Decreased Activity Tolerance, Decreased Strength,Limited Range of Motion,Pain,Poor Balance,Poor Safety Awareness Comments Gait Comments See mobility comments for details. Stair Climbing Assessment Evaluation Level of Assist On Stairs Minimal Assistance,Moderate Assistance,1 Person Assistance Devices Stair Climbing Assistive Devices Left Railing,Right Railing Technique/Endurance Stair Climbing Direction Ascend and Descend Stair Climbing Technique Step to Step Number of Steps Climbed 3 Stair Climbing Set # Repetitions (reps) 1 Comments Stair Climbing Comments See mobility comments for details. PT-Balance Assessment Sitting Balance and Reactions Static Sitting Balance Ability Good Dynamic Sitting Balance Ability Good Standing Balance and Reactions Static Standing Balance Ability Fair Dynamic Standing Balance Ability Poor Device Used FWW M5 PT-IP Objective Assessments Start: 07/10/20 16:48 Freq: NEEDED Status: Active Protocol: Document 07/10/20 15:00 AB (Rec: 07/10/20 17:06 AB [id number]) Orientation Orientation/Cognition Level of Alertness Alert Orientation Name,Place,Situation Language Function Ability Hard of Hearing Safety Awareness Decreased Safety Awareness Memory Description Short Term Impaired Gross Range of Motion Lower Extremity ROM Assessment Left Impaired Impairments L knee flexion tightness Strength Lower Extremity Strength Assessment Left Impaired Hip 4-/5 Knee 3+/5 Coordination Assessment Gross Coordination Gross Coordination WNL Muscle Tone Muscle Tone WNL Yes M6 PT-IP Treatment Start: 07/10/20 16:48 Freq: NEEDED Status: Active Protocol: Document 07/11/20 15:38 SP (Rec: 07/11/20 16:27 SP [id number]) Physical Therapy Treatment Exercises Exercises Ankle Pumps,Gluteal Sets,Quad Sets,Seated Knee Flexion/ Extension Knee ROM Measurement 50deg supine Education Education Provided Precautions,Weight Bearing Status,Post-Op Packet,Safety M7 PT-IP Assessment and Plan Start: 07/10/20 16:48 Freq: NEEDED Status: Active Protocol: Document 07/11/20 15:38 SP (Rec: 07/11/20 16:27 SP [id number]) PT Summary Assessment and Plan Potential Rehabilitation Potential Good Status of Condition at Evaluation Evolving Summary Impairments Pain,ROM,Strength,Balance, Coordination,Sensation,Tone, Cognition,Bed Mobility, Transfers,Gait,Activity Tolerance Progress Towards Goals Slow Progress due to Pain,Slow Progress due to Activity Tolerance Assessment Summary Pt requiring Mod A for sit<> stand transfers, CGA for ambulation able further outside door 20 ft with fWW, Mod A for Le support into bed, Min x1 scoot up in bed while using BUE and RLE held support . Continue caregiver training with providing physical assist including bed mobility, transfer, gait, and stairs mgt due to 8/10 pain LLE during wB, premedicated. Will continue to reassess stair climbing training tomorrow needs complete 5 stairs, completed 3/5 today. Will continue to asssess progress for safe d/c plan, patient hopes to go home with to assist her. Goals Bed Mobility Goal Independent Transfer Goal Independent,Front Wheeled Walker Gait Goal Independent,Front Wheel Walker Gait Distance 100 Other Goals up/down 5 steps B rails CGA Days to Meet Goals 5 Frequency of Treatment Frequency Of Treatment Twice a Day Treatment Plan Physical Therapy Treatment Plan Bed Mobility Training,Transfer Training,Gait Training, Therapeutic Exercise,Balance Retraining,Post Op Education, Discharge Planning,Hot or Cold Pack,Neuromuscular Re-ed, Coordination Retraining,Manual Therapy Other Recommendations and Next Treatment ambulation further distance, 5 Focus step stair climbing Recommendations To Nursing Amount of Assist Needed 1 Person Assist Discharge Recommendations PT Discharge Recommendations Home with Assistance,Home Health,SNF Rehab Other Discharge Recommendations depending on progress: home with assist/HHPT vs SNF rehab Transportation Needs at Discharge Private Vehicle,Wheelchair/ Cabulance
--- NOTE | 2020-07-11 16:43 | PC.NURSE ---
DC order cancelled. pt unable to pass the stairs. notified MORGAN Dodd
[2020-07-11] MEDS: HYDROMORPHONE 2 MG TABLET PO ×2 (18:45→23:26)
[2020-07-11] MEDS: lisinopriL 20 MG TABLET 40 MG PO (22:00)
[2020-07-11] MEDS: ATORVASTATIN 20 MG TABLET 40 MG PO (22:01)
[2020-07-12] MEDS: IBUPROFEN 400 MG TABLET PO ×4 (01:31→12:51)
[2020-07-12 05:50] VITALS: BP 109/71; PULSE 62; RESP 18; TEMP 36; O2SAT 97
[2020-07-12] MEDS: HYDROMORPHONE 2 MG TABLET PO ×3 (06:49→12:52)
[2020-07-12 07:31] VITALS: BP 136/79; PULSE 79; RESP 16; TEMP 36.6; O2SAT 94
--- NOTE | 2020-07-12 08:19 | PM.DS.1 ---
History of Present Illness History of Present Illness Date Patient Seen: 07/12/20 Time Patient Seen: 08:20 Chief complaint: Left Total Knee Arthroplasty *OPB* Narrative: Patient presented for total knee arthroplasty on 07/10/2020. She was not able to discharge home on postop day 1. And was kept for additional physical therapy. She is now ready for discharge. Discharge Providers Provider Date of admission: 07/11/20 14:19 Discharge Date: 07/12/20 Primary care physician: Noah Jorgensen MD Consults: 07/10/20 14:00 Consult to Discharge Planning Routine Comment: Consult to Physical Therapy Evaluate & Treat Comment: Physician Instructions: postop TKA protocol Consult to Respiratory Therapy Evaluate & Treat Comment: Physician Instructions: Evaluate and treat Discharge provider: Kain Bronson MD Summary Hospital Course Discharge Diagnosis: Left knee osteoarthritis Hospital Course: Patient had left total knee arthroplasty on 07/10/2020. She is now ready for discharge. Status at Discharge Cognitive/behavioral status at discharge: oriented Functional status at discharge: uses cane/walker Overall status at discharge: patient is progressing back to baseline Time Spent with Patient Time spent: Less than 30 minutes Exam Vital Signs (past 8 hours): - 07/12/20 05:50 07/12/20 07:31 Temperature 96.8 F L 97.8 F Pulse Rate 62 79 Respiratory Rate 18 16 Blood Pressure 109/71 136/79 Pulse Oximetry 97 94 Oxygen Delivery Method Room Air Oxygen Flow Rate 0 Narrative Exam Narrative: The dressing is intact. There is expected swelling. The leg is neurovascularly intact. Objective Labs Result Diagrams: 07/11/20 05:00 Discharge Assessment & Plan Assessment and Plan Assessment: Postop day 1 status post left total knee arthroplasty. Patient progressing as expected. Discharge home if cleared by for PT. Discharge Plan Discharge Plan Patient Disposition: Home Discharge comment: DC home if cleared by PT Discharge orders & Medications Prescriptions: New acetaminophen 325 mg Tablet 650 mg PO TID Qty: 60 RF: 0 tramadol 50 mg Tablet 50 mg PO QID PRN (Reason: Pain, Moderate (4-6)) Qty: 30 RF: 0 hydromorphone [Dilaudid] 2 mg tablet 2 mg PO Q4H PRN (Reason: pain) Qty: 20 RF: 0 Continued cyanocobalamin (vitamin B-12) 1,000 mcg capsule 1,000 mcg PO QNOON RF: 0 albuterol sulfate [Proventil HFA] 90 MCG/PUFF HFA aerosol inhaler 0.09 mg IH PRN PRN (Reason: Shortness Of Breath) Qty: 0 RF: 0 multivitamin Capsule 1 cap PO DAILY Qty: 0 RF: 0 turmeric 400 mg Capsule 1,000 mg PO DAILY Qty: 0 RF: 0 glipizide 5 mg tablet extended release 24hr 5 mg PO BID Qty: 180 RF: 3 chlorthalidone 25 mg tablet See Rx Instructions .ROUTE .COMPLEX Qty: 90 RF: 0 (DME) one touch glucose meter Qty: 1 RF: 0 lisinopril 20 mg tablet 40 mg PO BID Qty: 360 RF: 1 atorvastatin 40 mg tablet 40 mg PO .q evening Qty: 90 RF: 1 estradiol 0.5 mg tablet See Rx Instructions .ROUTE .COMPLEX Qty: 90 RF: 3 metformin 1,000 mg tablet See Rx Instructions .ROUTE .COMPLEX Qty: 180 RF: 0 amlodipine 10 mg tablet 10 mg PO DAILY Qty: 90 RF: 3 Pulmicort Flexhaler 180 mcg/actuation aerosol powdr breath activated 1 inhalation inhalation BID RF: 0 carvedilol 6.25 mg tablet 6.25 mg PO BID RF: 0 magnesium oxide 400 mg magnesium tablet 400 mg PO BID RF: 0 miconazole nitrate 2 % cream 1 applictn TOP BID PRN (Reason: Breakout) RF: 0 celecoxib [Celebrex] 100 mg Capsule 100 mg PO BID PRN (Reason: pain) RF: 0 potassium chloride 20 mEq Tablet Extended Release 20 meq PO DAILY RF: 0 tramadol 50 mg tablet 50 mg PO Q8H PRN (Reason: Pain) RF: 0 aspirin 81 mg Tablet,Delayed Release (Dr/Ec) 81 mg PO DAILY RF: 0 cholecalciferol (vitamin D3) [Vitamin D3] 25 mcg (1,000 unit) Capsule 25 mcg PO DAILY RF: 0 Follow up/Referrals: Kain Bronson MD [Physician] - 2 Weeks Noah Jorgensen MD [Primary Care Provider] - Diet/Activity/Treatments Diet: Regular Activity: The progress weight-bearing and activity as tolerated. Daily knee range of motion exercises. Cold/Heat Therapy: May ice the knee for 20 minutes at a time as needed for pain. Skin/Wound/Dressing Care Report to your healthcare provider any signs of infection, such as:: chills, fever, increased pain, unusual drainage and unusual redness Dressing: May leave dressing in place until follow-up. May shower over the dressing. Visit Report/Discharge Packet Instructions: DI for Knee Replacement, Tramadol Stand Alone Forms: Surgery Discharge Discharge Data Primary Care Provider: Noah Jorgensen Attending Provider: Kain Bronson Admit Date/Time: 07/11/20 14:19 Quality VTE Deep Vein Thrombosis/Pulmonary Embolism Present on Admission: No
[2020-07-12] MEDS: AMLODIPINE 5 MG TABLET 10 MG PO (08:57)
[2020-07-12] MEDS: DOCUSATE 100 MG CAPSULE PO (08:57)
[2020-07-12] MEDS: POTASSIUM CHLORIDE 20 MEQ TAB PO (08:57)
[2020-07-12] MEDS: ACETAMINOPHEN 325 MG TABLET 650 MG PO (08:57)
[2020-07-12 08:58] VITALS: BP 136/79; PULSE 79
[2020-07-12] MEDS: lisinopriL 20 MG TABLET 40 MG PO (08:58)
[2020-07-12] MEDS: carvediloL 6.25 MG TABLET PO (08:58)
[2020-07-12] MEDS: METFORMIN HCL 500 MG TABLET 1000 MG PO (08:58)
[2020-07-12] MEDS: ASPIRIN EC 81 MG TABLET PO (08:58)
[2020-07-12] MEDS: SODIUM CHLORIDE 0.9% FLUSH 10 ML IV (08:59)
[2020-07-12] MEDS: BUDESONIDE 90mcg FLEXHALER (60 PUFF/DEVICE) INH (09:15)
[2020-07-12] MEDS: glipiZIDE XL 5 MG TAB PO (09:15)
--- NOTE | 2020-07-12 11:17 | PT.IPTN ---
Current Diagnoses Unilateral primary osteoarthritis, left knee (07/11/20) Surgery Performed Operation Date: 07/10/20 10:45 Actual Procedures p Total Knee Arthroplasty(Left) - Kain Bronson MD Physical Therapy Treatment Note M2 PT-IP Current Condition Start: 07/10/20 16:48 Freq: NEEDED Status: Active Protocol: Document 07/10/20 15:00 AB (Rec: 07/10/20 17:06 AB [id number]) Physical Therapy Current Condition Current Condition Evaluation Date 07/10/20 Treatment Diagnosis s/p L TKA; difficulty in walking Onset Date 07/10/20 Weight Bearing Status Weight Bearing Status Weight Bear as Tolerated Allowed Weight Bearing Amount (enter % WBAT LLE or #) (%) M3 PT-IP Subjective Start: 07/10/20 16:48 Freq: NEEDED Status: Active Protocol: Document 07/12/20 10:25 KS (Rec: 07/12/20 12:46 KS [id number]) Subjective Physical Therapy Visit Type Type Treatment Note Visit Start Time 10:25 Visit Stop Time 11:17 Total Visit Minutes 52 Notes attended and provided physical assistance during tx. Number of WELLNESS NURSE RN Visits 3 Physical Therapy Visit Comments Patient Comments pt agreeable to working with PT. Therapy Pain Assessment Pain When Pain Assessed At Rest Pain Present Pain Present Denied Pain M4 PT-IP Mobility and Gait Start: 07/10/20 16:48 Freq: NEEDED Status: Active Protocol: Document 07/12/20 10:25 KS (Rec: 07/12/20 12:46 KS [id number]) PT-Bed Mobility Assessment Supine to Sit Supine to Sit Minimal Assistance,1 Person Assistance,Head of Bed Elevated,Bedrails Sit to Supine Sit to Supine Moderate Assistance,1 Person Assistance,Bedrails Scooting Scooting to Edge of Bed Minimal Assistance Scooting Up and Down in Bed Contact Guard Assistance PT-Transfer Assessment Sit to and From Stand Sit to and from Stand Minimal Assistance,1 Person Assistance,Use of Upper Extremities Equipment Transfer Assistive Device Gait Belt,Front Wheeled Walker Orthotic/Prosthetic Devices or Brace: No Transfers Transfer Destination Bed,Wheelchair Transfer Technique ambulated using FWW Transfer Ability Level of Assist Minimal Assistance,1 Person Assistance,Use of Upper Extremities Comments Mobility Comments Pt was in bed upon arrival from therapy w/ in room to reassess caregiver training. Pts was able to provide assist during entire treatment. Pt Min A for sup<>sit, CGA for scooting to EOB, assisted and applied gait belt appropriately. Pts then donned pts shoes and provided pt Min A for sit<> stand w/ FWW. Pt then ambulated CGA to w/c. CGA for stand<>sit, w/ poor eccentric control. Pt transported in w/c to stairs for energy conservation. Pt then stand<. sit Min A and ascended/ descended 3 steps x 2 w/ BHR and CGA provided safely and appropriately by . Pt did not require cues for sequencing. Min cues to pts for staggered step/ wide base of support. Pt then ambulated additional 30 w/ CGA and FWW, cues for upright posture. Pt returned to room in w/c, ambulated back to bed CGA w/ FWW and sit<>sup in bed w/ Mod A for LE guidance into bed by . Pt able to scoot up in bed CGA. Reviewed exercises, discussed getting into and out of car. Pt and stated they feel safe to go home. Pt left in bed w/ SCDs on, ice applied to knee, and all needs in reach. Gait Assessment Gait Gait Assistance Required: Contact Guard Assist,1 Person Assist Distance (Feet) 70 Able to Maintain Weight Bearing Status Yes During Gait Assistive Devices Assistive Device Gait Belt,Front Wheeled Walker Orthotic/Prosthetic Devices or Brace: No Gait Deviations General Gait Pattern Antalgic,Decreased Stride Length,Decreased Feet Clearance,Flexed Trunk Factors Limiting Gait Function Factors Limiting Gait Function Decreased Activity Tolerance, Decreased Strength,Limited Range of Motion,Pain,Poor Balance,Poor Safety Awareness Comments Gait Comments See mobility comments for details. Stair Climbing Assessment Evaluation Level of Assist On Stairs Contact Guard Assistance,1 Person Assistance Devices Stair Climbing Assistive Devices Left Railing,Right Railing Technique/Endurance Stair Climbing Direction Ascend and Descend Stair Climbing Technique Step to Step Number of Steps Climbed 3 Stair Climbing Set # Repetitions (reps) 2 Comments Stair Climbing Comments See mobility comments for details. PT-Balance Assessment Sitting Balance and Reactions Static Sitting Balance Ability Good Dynamic Sitting Balance Ability Good Standing Balance and Reactions Static Standing Balance Ability Fair Dynamic Standing Balance Ability Poor Device Used FWW M5 PT-IP Objective Assessments Start: 07/10/20 16:48 Freq: NEEDED Status: Active Protocol: Document 07/10/20 15:00 AB (Rec: 07/10/20 17:06 AB [id number]) Orientation Orientation/Cognition Level of Alertness Alert Orientation Name,Place,Situation Language Function Ability Hard of Hearing Safety Awareness Decreased Safety Awareness Memory Description Short Term Impaired Gross Range of Motion Lower Extremity ROM Assessment Left Impaired Impairments L knee flexion tightness Strength Lower Extremity Strength Assessment Left Impaired Hip 4-/5 Knee 3+/5 Coordination Assessment Gross Coordination Gross Coordination WNL Muscle Tone Muscle Tone WNL Yes M6 PT-IP Treatment Start: 07/10/20 16:48 Freq: NEEDED Status: Active Protocol: Document 07/12/20 10:25 KS (Rec: 07/12/20 12:46 KS [id number]) Physical Therapy Treatment Exercises Exercises Ankle Pumps,Gluteal Sets,Quad Sets Education Education Provided Precautions,Weight Bearing Status,Post-Op Packet,Safety M7 PT-IP Assessment and Plan Start: 07/10/20 16:48 Freq: NEEDED Status: Active Protocol: Document 07/12/20 10:25 KS (Rec: 07/12/20 12:46 KS [id number]) PT Summary Assessment and Plan Potential Rehabilitation Potential Good Status of Condition at Evaluation Evolving Summary Impairments Pain,ROM,Strength,Balance, Coordination,Sensation,Tone, Cognition,Bed Mobility, Transfers,Gait,Activity Tolerance Progress Towards Goals Slow Progress due to Pain,Slow Progress due to Activity Tolerance Assessment Summary Pt mostly required CGA for mobility, Min to Mod for LE guidance into and out of bed and Sit<>stand, CGA for stairs and ambulation. Pts was able to complete caregiver training. He provided appropriate cues and assist throughout treatment, only requiring min cues on stairs for WBOS. Pt successfully ascended/descended 3 steps x2 w/ BHR and CGA provided by . Pt and agree they feel safe to return home and have outpatient therapy setup. Goals Bed Mobility Goal Independent Transfer Goal Independent,Front Wheeled Walker Gait Goal Independent,Front Wheel Walker Gait Distance 100 Other Goals up/down 5 steps B rails CGA Days to Meet Goals 5 Frequency of Treatment Frequency Of Treatment Twice a Day Treatment Plan Physical Therapy Treatment Plan Bed Mobility Training,Transfer Training,Gait Training, Therapeutic Exercise,Balance Retraining,Post Op Education, Discharge Planning,Hot or Cold Pack,Neuromuscular Re-ed, Coordination Retraining,Manual Therapy Other Recommendations and Next Treatment ambulation further distance, 5 Focus step stair climbing Recommendations To Nursing Amount of Assist Needed 1 Person Assist Discharge Recommendations PT Discharge Recommendations Home with Assistance,Home Health,SNF Rehab Other Discharge Recommendations depending on progress: home with assist/HHPT vs SNF rehab Transportation Needs at Discharge Private Vehicle,Wheelchair/ Cabulance
[2020-07-12 12:00] VITALS: BP 110/47; PULSE 66; RESP 18; TEMP 36.4; O2SAT 95
[2020-07-12] MEDS: CHLORTHALIDONE 25 MG TABLET PO (12:13)
[2020-07-12] MEDS: INSULIN ASPART 100 UNIT/ML INSULN PEN SUBCUT (12:13)
--- NOTE | 2020-07-12 13:09 | PC.NURSE ---
Discharge teaching done regarding medications, range of motion, diet, s/s of infection and s/s of stroke. Patient and verbalized understanding to patient teaching. Patient has made follow up Dr. quintanilla w/ Dr. Bronson in 2 weeks. Patient wheeled to private car via wheelchair and is going home w/ . handed paper script for Dilaudid 2mg, to bring to pharmacy.
== END 2020-07-12 13:14 | disposition home or self-care (01) ==
LOC: OR 16:19 → AC 16:19
PROVIDERS: Admitting Provider Orthopaedic Surgery; PCP Internal Medicine; Referring Provider Orthopaedic Surgery; Visit Provider Orthopaedic Surgery
PROC: 0SRD0JZ Replacement of Left Knee Joint with Synthetic Substitute, Open Approach (ICD-10-PCS; CPT 27447; principal; 2020-07-10 10:45)
DX: M17.12 Unilateral primary osteoarthritis, left knee (principal); E11.9 Type 2 diabetes mellitus without complications; J45.909 Unspecified asthma, uncomplicated; I69.351 Hemiplegia and hemiparesis following cerebral infarction affecting right dominant side; E78.5 Hyperlipidemia, unspecified
CPT/HCPCS: 27447; 36415; 73560; 82962; 85014; 85018; 94640; 97110; 97116; 97161; 97530; C1776; G0378; A9270; C9290; J0690; J1100; J2250; J2405; J2704; J3010

== ENCOUNTER → 2020-07-24 12:31 | Outpatient (CLI) | payer MEDICARE, SELFPAY ==
[2020-07-10 20:45] VITALS: BMI 40.8
== END ==
PROVIDERS: PCP Internal Medicine; Referring Provider Internal Medicine; Visit Provider Internal Medicine
DX: N39.0 Urinary tract infection, site not specified (principal)
CPT/HCPCS: 87077; 87086; 87186

== ENCOUNTER → 2020-10-18 08:14 | Outpatient (CLI) | payer MEDICARE, SELFPAY ==
[2020-07-10 20:45] VITALS: BMI 40.8
[2020-10-18 09:16] LABS: Hemoglobin A1C% w Est Avg Glu 7.1 % (4.0-6.0)
[2020-10-18 09:24] LABS: Alanine Aminotransferase 23 IU/L (<35); Albumin 3.9 g/dL (3.5-5.0); Albumin Globulin Ratio 1.2 (1.0-2.8); Alkaline Phosphatase 82 U/L (38-126); Aspartate Aminotransferase 25 IU/L (14-36); BUN Creatinine Ratio 37.5 (6-22); Bilirubin Total 0.5 mg/dL (0.2-1.3); Blood Urea Nitrogen 36 mg/dL (7-17); Calcium 10.1 mg/dL (8.4-10.2); Carbon Dioxide 35 mmol/L (22-32); Chloride 99 mmol/L (98-107); Cholesterol 142 mg/dL (140-199); Estimated Glomerular Filt Rate 56.5 mL/min (>60); Globulin 3.2 g/dL (1.7-4.1); Glucose 128 mg/dL (80-110); HDL Cholesterol 52 mg/dL (40-60); HEMOLYSIS 15 (0-50); LDL Cholesterol Calculated 66 mg/dL (<100); Magnesium 1.8 mg/dL (1.6-2.3); Potassium 4.4 mmol/L (3.4-5.1); Sodium 138 mmol/L (137-145); Total Protein 7.1 g/dL (6.3-8.2); Triglycerides 120 mg/dL (35-150)
[2020-10-18 10:09] LABS: Vitamin D 25 Hydroxy (D3) 40.8 ng/mL (30.0-100.0)
== END ==
PROVIDERS: PCP Internal Medicine; Referring Provider Internal Medicine; Visit Provider Internal Medicine
DX: E11.69 Type 2 diabetes mellitus with other specified complication (principal); E78.5 Hyperlipidemia, unspecified; I10 Essential (primary) hypertension; N18.2 Chronic kidney disease, stage 2 (mild)
CPT/HCPCS: 36415; 80053; 80061; 82306; 83036; 83735

== ENCOUNTER → 2020-11-19 13:42 | Outpatient (CLI) | payer MEDICARE, SELFPAY ==
[2020-07-10 20:45] VITALS: BMI 40.8
--- NOTE | 2020-11-19 13:43 | DI.MG.S_ITS ---
BILATERAL DIGITAL SCREENING MAMMOGRAM 3D/2D WITH CAD: 11/19/2020 CLINICAL: Routine screening. Comparison is made to exams dated: 11/04/2018 mammogram, 10/29/2017 mammogram, and 10/28/2016 mammogram - [facility]. The tissue of both breasts is predominantly fatty. Current study was also evaluated with a Computer Aided Detection (CAD) system. No significant masses, calcifications, or other findings are seen in either breast. There has been no significant interval change. IMPRESSION: NEGATIVE There is no mammographic evidence of malignancy. A 1 year screening mammogram is recommended. This exam was interpreted at Station ID: [id number]. NOTE: For mammograms, a report in lay terms will be sent to the patient. Approximately 15% of breast malignancies will not be visualized mammographically. In the management of a palpable breast mass, a negative mammogram must not discourage biopsy of a clinically suspicious lesion. Electronically Signed By: En hosue/marie:11/19/2020 14:25:51 letter sent: Normal Exam ACR BI-RADS Category 1: Negative [id number]
== END ==
PROVIDERS: PCP Internal Medicine; Referring Provider Internal Medicine; Visit Provider Internal Medicine
DX: Z12.31 Encounter for screening mammogram for malignant neoplasm of breast (principal)
CPT/HCPCS: 77063; 77067

== ENCOUNTER → 2020-12-06 14:36 | Outpatient (CLI) | payer MEDICARE, SELFPAY ==
[2020-07-10 20:45] VITALS: BMI 40.8
[2020-12-06] MEDS: COVID-19 VACC #1, MRNA(MOD) 100 MCG/0.5 ML VIAL IM (15:01)
== END ==
PROVIDERS: PCP Internal Medicine; Visit Provider Internal Medicine
DX: Z23 Encounter for immunization (principal)
CPT/HCPCS: 0011A; 91301

== ENCOUNTER → 2021-01-03 14:41 | Outpatient (CLI) | payer MEDICARE, SELFPAY ==
[2020-07-10 20:45] VITALS: BMI 40.8
[2021-01-03] MEDS: COVID-19 VACC #2, MRNA(MOD) 100 MCG/0.5 ML VIAL IM (14:46)
== END ==
PROVIDERS: PCP Internal Medicine; Visit Provider Internal Medicine
DX: Z23 Encounter for immunization (principal)
CPT/HCPCS: 0012A; 91301

== ENCOUNTER 2021-01-07 16:00 | Outpatient (RCR) | payer MEDICARE, SELFPAY ==
[2019-12-22 09:19] VITALS: BMI 41.2
--- NOTE | 2020-07-05 16:06 | PT.OIE ---
Current Diagnoses Unilateral primary osteoarthritis, left knee (07/05/20) Past Medical History (Last Updated 07/03/20 @ 13:03 by Nini Carroll RN) Abnormal EKG (Acute) Carpal tunnel syndrome (Resolved ~2005) Chronic renal failure, stage 2 (mild) (Chronic) Colon polyps (Resolved 02/2007) CVA (cerebral vascular accident) (Acute 12/06/19) Degenerative arthritis of left knee (Acute) Diabetes (Chronic Unknown) Fatigue (Acute) Hyperlipemia (Chronic Unknown) Hypertension (Chronic Unknown) Leg swelling (Acute) Low back pain (Chronic ~2015) Osteoarthritis (Chronic Unknown) Status post stroke (Inactive) Unilateral primary osteoarthritis, left knee (Acute) Past Surgical History (Last Updated 07/03/20 @ 13:07 by Nini Carroll RN) History of carpal tunnel release (Acute) History of knee replacement (2003) History of surgery (Acute) History of surgery (Acute) Hx of arthroscopy of right knee (Acute) Hx of laminectomy (Acute) S/P total abdominal hysterectomy and bilateral salpingo-oophorectomy Status post delivery Visit Care Team Role Provider Type Noah Jorgensen MD Primary Care Provider Physician Specialty: Internal Medicine Address: [address] [place] [address], [address], [facility] Email: [email or web address] Kain Bronson MD Attending Provider Physician Referring Provider Specialty: Orthopedic Surgery Address: [address] [place] [address], [facility] Email: [email or web address] [facility] Initial Evaluation PT-OP-A Visit Information Start: 07/05/20 07:34 Freq: Status: Active Protocol: Document 07/05/20 12:14 MB (Rec: 07/05/20 12:27 MB [id number]) Out-Patient Physical Therapy Visit Information Visit Information Visit Type Initial Evaluation Visit Note [employer]age Visit Start Time 12:14 Visit Stop Time 12:59 Total Visit Minutes 45 Visit Number 1 Evaluation Information Evaluation Date 07/05/20 PT-OP-B Current Condition Start: 07/05/20 07:34 Freq: Status: Active Protocol: Document 07/05/20 12:14 MB (Rec: 07/05/20 12:27 MB [id number]) Current Condition History of Current Condition Onset Date 10 years Current Complaints Left knee gives out History of Current Condition Pt arrives for pre-op PT for scheduled left TKR next Wednesday, Jul 10, 2020. Pt was supposed to have had left TKR on 11/29/2019 but surgery was delayed d/t HTN and then she had a stroke the following week. She had weakness in the right side of her body after her stroke. She received PT after stroke. She got up to two canes and has trouble standing. She is using recumbent bike at home. Her BP has been controlled with 4 medications. She denies falls and light-headedness. PMH includes right TKR 2003, back pain, stroke, DMII, slight B feet neuropathy, back surgery 2008. Pt has 5 steps to enter the house and she has two rails that she can reach. She has RW , sleeps in recliner, is getting a CPROM machine post- op and will need to get in and OOB, she has a tall toilet and handicap bars. Pt rates pain as 2/10 left knee. Prior Treatments and Tests See above Treatment Goals Patient/Caregiver Goals To not have pain after surgery and to regain strength and to walk without crumpling. Prior Functional Status Baseline Function- Other Gait training with RW and mod I but stays close to pt. Pt sleeps in recliner at home and states that she cannot get into supine on the mat and she requires extensive verbal encouragement to try. Cues to lie down on left side and mod A to help legs up into bed, cues for log rolling to the right to sit up and CGA. reaches to help pt with her shoe even when pt does not ask for help. Personal Factors Other Personal Factors That May Effect Pt has low pain threshold and Therapy/Recovery self-limits functional mobility and exercises. This is a challenge for physical therapy and may be a barrier post-op as well. PT-OP-C Subjective Start: 07/05/20 07:34 Freq: Status: Active Protocol: Document 07/05/20 12:14 MB (Rec: 07/05/20 12:27 MB [id number]) OP-PT Subjective Patient Comments Patient Comments See history of current complaints Patient Questionnaires Lower Extremity Functional Scale LEFS Score 23 LEFS Impairment 60 to 79% Impaired (Score 17- 31) OP-PT Pain Assessment Comments Pain Comments See history of current condition for pain comments. Pt c/o pain with bed mobility, lying flat, ROM, MMT. Pain in back, right groin and left knee. She cannot rate but limits all activity. This is a barrier to MMT and it is difficult to determine what is her true strength. PT-OP-G Mobility & Gait Start: 07/05/20 07:34 Freq: Status: Active Protocol: Document 07/05/20 12:14 MB (Rec: 07/05/20 16:06 MB [id number]) OP Mobility Evaluation Bed Mobility Rolling Cues and CGA to roll to the right Supine to and from Sit Sit to side lying with mod A for LEs Side lying to sit with CGA and cues to lower legs down Pt can roll herself over without asst Transfers Sit to Stand Cues to push up from the mat OP Gait Assessment Gait Gait Assistance Required: Independent Distance (Feet) 75 Assistive Devices Assistive Device Front Wheeled Walker Gait Deviations General Gait Pattern Antalgic,Decreased Feet Clearance,Flexed Trunk Factors Limiting Gait Function Factors Limiting Gait Function Decreased Strength,Pain,Poor Safety Awareness Comments Gait Comments Pt can gait train with poor posture with RW without asst but her often stays close by to her Stair Climbing Evaluation Evaluation Level of Assist On Stairs Contact Guard Assistance Devices Stair Climbing Assistive Devices Left Railing,Right Railing Technique/Endurance Stair Climbing Direction Ascend and Descend Stair Climbing Technique Step to Step Comments Stair Climbing Comments Stair training for post-op. Pt prefers to ascend forward with two rails and descend backwards with two rails and then PT teaches ascend backwards with two rails, lead with right foot ascend and descend forwards with two rails, lead with left foot PT-OP-K Range of Motion Start: 07/05/20 07:34 Freq: Status: Active Protocol: Document 07/05/20 12:14 MB (Rec: 07/05/20 16:06 MB [id number]) Knee Goniometric Range of Motion Knee Left Knee ROM WFL No Patient Position Supine Flexion Active (degrees) 103 Extension Active (degrees) 12 Right Knee ROM WFL No Patient Position Supine Flexion Active (degrees) 105 Extension Active (degrees) 3 Knee ROM Limitations Comments Pt limits all ROM d/t reports of left knee, right groin and LBP, not rated PT-OP-M Strength Start: 07/05/20 07:34 Freq: Status: Active Protocol: Document 07/05/20 12:14 MB (Rec: 07/05/20 16:06 MB [id number]) Hip Strength Hip Manual Muscle Testing Right Flexion (L2) 3- Fair- Extension (S1) 3+ Fair+ Left Flexion (L2) 3+ Fair+ Abduction 3 Fair Knee Strength Knee Manual Muscle Testing Right Flexion (S2) 4 Good Extension (L3) 3+ Fair+ Left Comments Deferred d/t complaints/fear of pain Ankle/Foot Strength Ankle and Foot Manual Muscle Testing Right Dorsiflexion (L4) 4 Good Inversion 4 Good Eversion (S1) 3+ Fair+ Comments Self-limiting behavior Left Dorsiflexion (L4) 4 Good Inversion 3- Fair- Eversion (S1) 3- Fair- Comments Self-limiting behavior Toe Strength Toe Manual Muscle Testing Right Great Toe Extension 3+ Fair+ Left Great Toe Extension 3+ Fair+ PT-OP-Q Treatments Start: 07/05/20 07:34 Freq: Status: Active Protocol: Document 07/05/20 12:14 MB (Rec: 07/05/20 16:06 MB [id number]) Therapeutic Exercises Supine Exercises Post-op TKA exercises QS, AP, HS, SAQ, heel dangle Side bilateral Comments Reviewed all these again today and provided handout added hip abd/HS sit Gait Training Gait Activity Stairs Comments See stair comments today, did spend time with stair training and with step-to gait as well as safe transfers reaching back for the mat and pushing up from it Self-Care/Home Management Treatment Education Caregiver Education Use of cryocuff, PT takes machine out of box and runs through operation with pt and HEP Bed mobility, transfers, stair training Benefits of thigh high compression PT-OP-T Assessment and Plan Start: 07/05/20 07:34 Freq: Status: Active Protocol: Document 07/05/20 12:14 MB (Rec: 07/05/20 16:06 MB [id number]) Physical Therapy Assessment Rehab Potential Rehabilitation Potential Fair Evaluation Complexity Number of Personal Factors/Comorbidities 3 or More Number of Body Systems Impaired 3 Clinical Presentation at Evaluation Evolving Impairments Impairments Activity Tolerance,Balance, Functional Activities, Functional Mobility,Gait, Integument,Pain,Posture,ROM, Soft Tissue Mobility,Strength, Transfers Other Impairments Pt has low pain threshold and limits all ROM, functional activities and MMT. She tends to rely on her for assistance. She has a recent history of HTN, stroke. Pt has history of not getting into the bed and sleeping in recliner and she is getting a passive ROM machine and will have to use it in the bed at home. She has B LE edema and wear knee high compression which may exacerbate edema in the posterior knee. Goals 5 Residential Goal (LTG) Pt will present with LE functional index score to reflect no more than 30% impairment to allow improved functional I by 09/04/2020. LTG Duration 8 weeks Four Millinery Worker Goal (LTG) Pt will present with improved left knee AROM to at least 3- 115 deg to improve functional transfers by 09/04/2020. LTG Duration 8 weeks Three Millinery Worker Goal (LTG) Pt will by able to perform at least 10 reps sit to stand without UE support in 30 sec to improve safety with transfers at home by 2019. LTG Duration 8 weeks Two Millinery Worker Goal (LTG) Pt will be able to get in and OOB I (on plinth, into supine and back off plinth) with I to improve bed mobility at home by 09/04/2020. LTG Duration 8 weeks One Millinery Worker Goal (LTG) Pt will perform progressive HEP with handouts to improve ROM, flexibility, strength, sit to stands, balance and gait by 09/04/2020. LTG Duration 8 weeks Assessment Summary Assessment Pt arrives for pre-op appointment before left TKR 07/10/2020. Pt c/o pain with bed mobility, lying flat, ROM, MMT . Pain in back, right groin and left knee. She cannot rate but limits all activity. This is a barrier to MMT and it is difficult to determine what is her true strength. Pt was supposed to have TKR in November but was hypertensive and then had stroke. She presents with decreased bed mobility, gait and transfers. Her is nearby during eval and tends to do a lot for the patient. ? pt buy in as far as self-care and I. She has not been sleeping in the bed at home but sleeps in recliner but states that she is getting a passive ROM machine to use post-op. Extensive training today in HEP, gait, transfer, bed mobility, stair training, use of Cryocuff and compression. Barriers to PT include: all over pain and self-limiting behavior, increased body mass, reliance on spouse and questionable buy in for therapy. Physical Therapy Plan Frequency and Duration Frequency of Treatment 2x/Week Duration of Treatment 8 weeks Plan of Care Start Date 07/05/20 Plan of Care End Date 09/04/20 Therapeutic Interventions Therapeutic Interventions Aquatic Therapy,Balance Training,Canalithic Repositioning,Gait Training, Home Exercise Program,Manual Therapy,Neuromuscular Re- education,Patient/Caregiver Education,Self-Care/Home Management,Soft Tissue Mobilization,Taping, Therapeutic Activities, Therapeutic Exercises Modalities Cold Pack/Ice Massage,Electric Stimulation,Hot Packs, Ultrasound Next Visit Focus/Plan Next Note Type Progress Note Next Visit Plan Post-op progress note
--- NOTE | 2020-07-05 16:06 | PT.OPPOC ---
Physical, Occupational & Speech Therapy At [facility] Current Diagnoses Unilateral primary osteoarthritis, left knee (07/05/20) Visit Care Team Role Provider Type Noah Jorgensen MD Primary Care Provider Physician Specialty: Internal Medicine Address: [address] [place] [address], [address], [address] Email: [email or web address] Kain Bronson MD Attending Provider Physician Referring Provider Specialty: Orthopedic Surgery Address: [address] [place] [address], [id number] Email: [email or web address] Plan Of Care PT-OP-T Assessment and Plan Start: 07/05/20 07:34 Freq: Status: Active Protocol: Document 07/05/20 12:14 MB (Rec: 07/05/20 16:06 MB [id number]) Physical Therapy Assessment Rehab Potential Rehabilitation Potential Fair Evaluation Complexity Number of Personal Factors/Comorbidities 3 or More Number of Body Systems Impaired 3 Clinical Presentation at Evaluation Evolving Impairments Impairments Activity Tolerance,Balance, Functional Activities, Functional Mobility,Gait, Integument,Pain,Posture,ROM, Soft Tissue Mobility,Strength, Transfers Other Impairments Pt has low pain threshold and limits all ROM, functional activities and MMT. She tends to rely on her for assistance. She has a recent history of HTN, stroke. Pt has history of not getting into the bed and sleeping in recliner and she is getting a passive ROM machine and will have to use it in the bed at home. She has B LE edema and wear knee high compression which may exacerbate edema in the posterior knee. Goals 5 Medical Data Entry Clerk Goal (LTG) Pt will present with LE functional index score to reflect no more than 30% impairment to allow improved functional I by 09/04/2020. LTG Duration 8 weeks Four Medical Data Entry Clerk Goal (LTG) Pt will present with improved left knee AROM to at least 3- 115 deg to improve functional transfers by 09/04/2020. LTG Duration 8 weeks Three Medical Data Entry Clerk Goal (LTG) Pt will by able to perform at least 10 reps sit to stand without UE support in 30 sec to improve safety with transfers at home by 2019. LTG Duration 8 weeks Two Usp Goal (LTG) Pt will be able to get in and OOB I (on plinth, into supine and back off plinth) with I to improve bed mobility at home by 09/04/2020. LTG Duration 8 weeks One Medical Data Entry Clerk Goal (LTG) Pt will perform progressive HEP with handouts to improve ROM, flexibility, strength, sit to stands, balance and gait by 09/04/2020. LTG Duration 8 weeks Assessment Summary Assessment Pt arrives for pre-op appointment before left TKR 07/10/2020. Pt c/o pain with bed mobility, lying flat, ROM, MMT . Pain in back, right groin and left knee. She cannot rate but limits all activity. This is a barrier to MMT and it is difficult to determine what is her true strength. Pt was supposed to have TKR in November but was hypertensive and then had stroke. She presents with decreased bed mobility, gait and transfers. Her is nearby during eval and tends to do a lot for the patient. ? pt buy in as far as self-care and I. She has not been sleeping in the bed at home but sleeps in recliner but states that she is getting a passive ROM machine to use post-op. Extensive training today in HEP, gait, transfer, bed mobility, stair training, use of Cryocuff and compression. Barriers to PT include: all over pain and self-limiting behavior, increased body mass, reliance on spouse and questionable buy in for therapy. Physical Therapy Plan Frequency and Duration Frequency of Treatment 2x/Week Duration of Treatment 8 weeks Plan of Care Start Date 07/05/20 Plan of Care End Date 09/04/20 Therapeutic Interventions Therapeutic Interventions Aquatic Therapy,Balance Training,Canalithic Repositioning,Gait Training, Home Exercise Program,Manual Therapy,Neuromuscular Re- education,Patient/Caregiver Education,Self-Care/Home Management,Soft Tissue Mobilization,Taping, Therapeutic Activities, Therapeutic Exercises Modalities Cold Pack/Ice Massage,Electric Stimulation,Hot Packs, Ultrasound Next Visit Focus/Plan Next Note Type Progress Note Next Visit Plan Post-op progress note Plan of Care Dates Plan of Care Start Date 07/05/20 Plan of Care End Date 09/04/20 Electronically Signed by: Olivia Foley, PT 07/05/20 [id number] Please Sign and Return: I have reviewed this Plan of Care and certify that the skilled therapy services above are required to meet the patient?s needs. Physician Signature Date Printed Name and Credentials Clinical Instructor Signature Printed Name and Credentials
--- NOTE | 2020-07-19 17:12 | PT.OTRE ---
Current Diagnoses Unilateral primary osteoarthritis, left knee (07/19/20) Past Medical History (Last Updated 07/03/20 @ 13:03 by Nini Carroll RN) Abnormal EKG (Acute) Carpal tunnel syndrome (Resolved ~2005) Chronic renal failure, stage 2 (mild) (Chronic) Colon polyps (Resolved 02/2007) CVA (cerebral vascular accident) (Acute 12/06/19) Degenerative arthritis of left knee (Acute) Diabetes (Chronic Unknown) Fatigue (Acute) Hyperlipemia (Chronic Unknown) Hypertension (Chronic Unknown) Leg swelling (Acute) Low back pain (Chronic ~2015) Osteoarthritis (Chronic Unknown) Status post stroke (Inactive) Unilateral primary osteoarthritis, left knee (Acute) Surgical History (Last Updated 07/03/20 @ 13:07 by Nini Carroll RN) History of carpal tunnel release (Acute) History of knee replacement (2003) History of surgery (Acute) History of surgery (Acute) Hx of arthroscopy of right knee (Acute) Hx of laminectomy (Acute) S/P total abdominal hysterectomy and bilateral salpingo-oophorectomy Status post delivery Visit Care Team Role Provider Type Noah Jorgensen MD Primary Care Provider Physician Specialty: Internal Medicine Address: [address] [place] [address], [address], [facility] Email: [email or web address] Kain Bronson MD Attending Provider Physician Referring Provider Specialty: Orthopedic Surgery Address: [address] [place] [address], [id number] Email: [email or web address] Physical Therapy Re-Evaluation PT-OP-A Visit Information Start: 07/05/20 07:34 Freq: Status: Active Protocol: Document 07/19/20 15:20 DCW (Rec: 07/19/20 17:11 DCW [id number]) Out-Patient Physical Therapy Visit Information Visit Information Visit Type Re-Evaluation Visit Start Time 15:20 Visit Stop Time 16:00 Total Visit Minutes 40 Visit Number 2 Evaluation Information Evaluation Date 07/05/20 PT-OP-B Current Condition Start: 07/05/20 07:34 Freq: Status: Active Protocol: Document 07/19/20 15:20 DCW (Rec: 07/19/20 15:45 DCW [id number]) Current Condition History of Current Condition Onset Date 10 years Current Complaints Post-op L TKA History of Current Condition Pt returns to therapy today following L TKA on 07/10/20. Pt reports she is in just as much pain today as I was the day after surgery. Pt performs limited ambulation around her home, basically just between her bed, chair, and bathroom. Pt reports she has been using a CPM machine, and is able to get up to 30 degrees flexion. Pt reports pain is about a 6/10 at rest, but is more like an 8/10 if she moves her leg. Pt is also reporting she has had a temperature this past week, hovering around 99 degrees, which is up from her usual temp of 97.6. Pt has been struggling with mobility secondary to pain. Personal Factors Other Personal Factors That May Effect Pt continues to be very self- Therapy/Recovery restrictive due to pain and, more frequently, fear of pain. PT-OP-C Subjective Start: 07/05/20 07:34 Freq: Status: Active Protocol: Document 07/19/20 15:20 DCW (Rec: 07/19/20 17:11 DCW [id number]) OP-PT Subjective Patient Comments Patient Comments I'm in just as much pain as I was when I left the hospital. I hope you don't expect me to do anything, I probably won't get out of this chair. OP-PT Pain Assessment Location Left Knee Intensity 6 Scale Used Numeric (0 - 10) PT-OP-E Functional Tests Start: 07/19/20 15:45 Freq: Status: Active Protocol: Document 07/19/20 15:20 DCW (Rec: 07/19/20 15:59 DCW [id number]) Functional Tests 2 Minute Walk Test Distance 16 Device Used FWW Comments Stopped at 1'12 PT-OP-G Mobility & Gait Start: 07/05/20 07:34 Freq: Status: Active Protocol: Document 07/19/20 15:20 DCW (Rec: 07/19/20 15:59 DCW [id number]) OP Gait Assessment Gait Gait Assistance Required: Minimum Assistance Distance (Feet) 16 Assistive Devices Assistive Device Front Wheeled Walker Gait Deviations General Gait Pattern Antalgic,Decreased Stride Length,Decreased Feet Clearance,Flexed Trunk,Narrow Based Gait,Step-to Gait Factors Limiting Gait Function Factors Limiting Gait Function Decreased Activity Tolerance, Decreased Strength,Limited Range of Motion,Pain,Poor Safety Awareness PT-OP-J Posture/Palpation/Skin Start: 07/05/20 07:34 Freq: Status: Active Protocol: Document 07/19/20 15:20 DCW (Rec: 07/19/20 15:45 DCW [id number]) Skin Assessment Circumference Measurement 3 Location 10 cm inferior to L Joint Line Measurement (Centimeters) 45.1 Comments 10 cm inerior to R Joint Line = 40.1 2 Location 10 cm superior to L Joint Line Measurement (Centimeters) 57.7 Comments 10 cm superior to R Joint Line = 48.0 1 Location L Joint Line Measurement (Centimeters) 50.4 Comments R Joint line = 45.3 PT-OP-K Range of Motion Start: 07/05/20 07:34 Freq: Status: Active Protocol: Document 07/19/20 15:20 DCW (Rec: 07/19/20 15:45 DCW [id number]) Knee Goniometric Range of Motion Knee Measured in Degrees Left Knee ROM WFL No Patient Position Sitting Flexion Active (degrees) 71 Extension Active (degrees) 15 PT-OP-M Strength Start: 07/05/20 07:34 Freq: Status: Active Protocol: Document 07/19/20 15:20 DCW (Rec: 07/19/20 15:45 DCW [id number]) Hip Strength Hip Manual Muscle Testing Left Flexion (L2) 4- Good- Abduction 3+ Fair+ Knee Strength Knee Manual Muscle Testing Right Flexion (S2) 4 Good Extension (L3) 4 Good Left Flexion (S2) 3- Fair- Extension (L3) 3- Fair- PT-OP-Q Treatments Start: 07/05/20 07:34 Freq: Status: Active Protocol: Document 07/05/20 12:14 MB (Rec: 07/05/20 16:06 MB [id number]) Therapeutic Exercises Supine Exercises Post-op TKA exercises QS, AP, HS, SAQ, heel dangle Side bilateral Comments Reviewed all these again today and provided handout added hip abd/HS sit Gait Training Gait Activity Stairs Comments See stair comments today, did spend time with stair training and with step-to gait as well as safe transfers reaching back for the mat and pushing up from it Self-Care/Home Management Treatment Education Caregiver Education Use of cryocuff, PT takes machine out of box and runs through operation with pt and HEP Bed mobility, transfers, stair training Benefits of thigh high compression PT-OP-T Assessment and Plan Start: 07/05/20 07:34 Freq: Status: Active Protocol: Document 07/19/20 15:20 DCW (Rec: 07/19/20 17:11 DCW [id number]) Physical Therapy Assessment Rehab Potential Rehabilitation Potential Fair Evaluation Complexity Number of Personal Factors/Comorbidities 3 or More Number of Body Systems Impaired 3 Clinical Presentation at Evaluation Evolving Impairments Impairments Activity Tolerance,Balance, Functional Activities, Functional Mobility,Gait, Integument,Pain,Posture,ROM, Soft Tissue Mobility,Strength, Transfers Other Impairments Pt has low pain threshold and limits all ROM, functional activities and MMT. She tends to rely on her for assistance. She has a recent history of HTN, stroke. Pt has history of not getting into the bed and sleeping in recliner and she is getting a passive ROM machine and will have to use it in the bed at home. She has B LE edema and wear knee high compression which may exacerbate edema in the posterior knee. Goals Six Impairment Pt ambulates 16' during 2 MWT Short Term Goal (STG) Pt to ambulate 240' during 2 MWT to show decrease in risk of further functional decline by exhibiting a gait speed >1. 97 ft/sec 5 Long-Term Goal (LTG) Pt will present with LE functional index score to reflect no more than 30% impairment to allow improved functional I LTG Duration 09/18/20 Four Escalator Mechanic Goal (LTG) Pt will present with improved left knee AROM to at least 3- 115 deg to improve functional transfers LTG Duration 09/18/20 Three Long-Term Goal (LTG) Pt will by able to perform at least 10 reps sit to stand without UE support in 30 sec to improve safety with transfers at home LTG Duration 09/18/20 Two Long-Term Goal (LTG) Pt will be able to get in and OOB I (on plinth, into supine and back off plinth) with I to improve bed mobility at home LTG Duration 09/18/20 One Short Term Goal (STG) Pt will perform progressive HEP with handouts to improve ROM, flexibility, strength, sit to stands, balance and gait STG Duration 08/18/20 Assessment Summary Assessment Pt presenting eight days s/p L TKA. Pt overall very self- limiting, refuses to participate in any activity if she believes it will cause her pain or discomfort. Has been limited to small amb around house, mainly from bed to chair. Using CPM device for ROM, however only allowing it to flex to 30 degrees. Pt should benefit from skilled therapy to focus on improved ROM, increased strength, gait normalization, improved activity tolerance, and decreased pain. Physical Therapy Plan Frequency and Duration Frequency of Treatment 2x/Week Duration of Treatment 2 months Plan of Care Start Date 07/19/20 Plan of Care End Date 09/18/20 Therapeutic Interventions Therapeutic Interventions Aquatic Therapy,Balance Training,Canalithic Repositioning,Gait Training, Home Exercise Program,Manual Therapy,Neuromuscular Re- education,Patient/Caregiver Education,Self-Care/Home Management,Soft Tissue Mobilization,Taping, Therapeutic Activities, Therapeutic Exercises Modalities Cold Pack/Ice Massage,Electric Stimulation,Hot Packs, Ultrasound Next Visit Focus/Plan Next Note Type Treatment Note Next Visit Plan ROM, Strengthening, gait
--- NOTE | 2020-07-19 17:12 | PT.OPPOC ---
Physical, Occupational & Speech Therapy At [facility] Current Diagnoses Unilateral primary osteoarthritis, left knee (07/19/20) Visit Care Team Role Provider Type Noah Jorgensen MD Primary Care Provider Physician Specialty: Internal Medicine Address: [address] [place] [address], [address], [address] Email: [email or web address] Kain Bronson MD Attending Provider Physician Referring Provider Specialty: Orthopedic Surgery Address: [address] [place] [address], [id number] Email: Plan Of Care PT-OP-T Assessment and Plan Start: 07/05/20 07:34 Freq: Status: Active Protocol: Document 07/19/20 15:20 DCW (Rec: 07/19/20 17:11 DCW [id number]) Physical Therapy Assessment Rehab Potential Rehabilitation Potential Fair Evaluation Complexity Number of Personal Factors/Comorbidities 3 or More Number of Body Systems Impaired 3 Clinical Presentation at Evaluation Evolving Impairments Impairments Activity Tolerance,Balance, Functional Activities, Functional Mobility,Gait, Integument,Pain,Posture,ROM, Soft Tissue Mobility,Strength, Transfers Other Impairments Pt has low pain threshold and limits all ROM, functional activities and MMT. She tends to rely on her for assistance. She has a recent history of HTN, stroke. Pt has history of not getting into the bed and sleeping in recliner and she is getting a passive ROM machine and will have to use it in the bed at home. She has B LE edema and wear knee high compression which may exacerbate edema in the posterior knee. Goals Six Impairment Pt ambulates 16' during 2 MWT Short Term Goal (STG) Pt to ambulate 240' during 2 MWT to show decrease in risk of further functional decline by exhibiting a gait speed >1. 97 ft/sec 5 Sap Data Analyst Goal (LTG) Pt will present with LE functional index score to reflect no more than 30% impairment to allow improved functional I LTG Duration 09/18/20 Four Assisted Goal (LTG) Pt will present with improved left knee AROM to at least 3- 115 deg to improve functional transfers LTG Duration 09/18/20 Three Sap Data Analyst Goal (LTG) Pt will by able to perform at least 10 reps sit to stand without UE support in 30 sec to improve safety with transfers at home LTG Duration 09/18/20 Two Sap Data Analyst Goal (LTG) Pt will be able to get in and OOB I (on plinth, into supine and back off plinth) with I to improve bed mobility at home LTG Duration 09/18/20 One Short Term Goal (STG) Pt will perform progressive HEP with handouts to improve ROM, flexibility, strength, sit to stands, balance and gait STG Duration 08/18/20 Assessment Summary Assessment Pt presenting eight days s/p L TKA. Pt overall very self- limiting, refuses to participate in any activity if she believes it will cause her pain or discomfort. Has been limited to small amb around house, mianly from bed to chair. Using CPM device for ROM, however only allowing it to flex to 30 degrees. Pt should benefit from skilled therapy to focus on improved ROM, increased strength, gait normalization, improved activity tolerance, and decreased pain. Physical Therapy Plan Frequency and Duration Frequency of Treatment 2x/Week Duration of Treatment 2 months Plan of Care Start Date 07/19/20 Plan of Care End Date 09/18/20 Therapeutic Interventions Therapeutic Interventions Aquatic Therapy,Balance Training,Canalithic Repositioning,Gait Training, Home Exercise Program,Manual Therapy,Neuromuscular Re- education,Patient/Caregiver Education,Self-Care/Home Management,Soft Tissue Mobilization,Taping, Therapeutic Activities, Therapeutic Exercises Modalities Cold Pack/Ice Massage,Electric Stimulation,Hot Packs, Ultrasound Next Visit Focus/Plan Next Note Type Treatment Note Next Visit Plan ROM, Strengthening, gait Plan of Care Dates Plan of Care Start Date 07/19/20 Plan of Care End Date 09/18/20 Electronically Signed by: Jey Howe, PT 07/19/20 [id number] Please Sign and Return: I have reviewed this Plan of Care and certify that the skilled therapy services above are required to meet the patient?s needs. Physician Signature Date Printed Name and Credentials Clinical Instructor Signature Printed Name and Credentials
--- NOTE | 2020-07-22 16:05 | PT.OTN ---
Current Diagnoses Unilateral primary osteoarthritis, left knee (07/22/20) Physical Therapy Treatment Note PT-OP-A Visit Information Start: 07/05/20 07:34 Freq: Status: Active Protocol: Document 07/22/20 15:17 DCW (Rec: 07/22/20 16:05 DCW [id number]) Out-Patient Physical Therapy Visit Information Visit Information Visit Type Treatment Note Visit Start Time 15:17 Visit Stop Time 16:00 Total Visit Minutes 43 Visit Number 3 Number of GUIDE VISITOR Visits 0 Evaluation Information Evaluation Date 07/05/20 PT-OP-B Current Condition Start: 07/05/20 07:34 Freq: Status: Active Protocol: Document 07/19/20 15:20 DCW (Rec: 07/19/20 15:45 DCW [id number]) Current Condition History of Current Condition Onset Date 10 years Current Complaints Post-op L TKA History of Current Condition Pt returns to therapy today following L TKA on 07/10/20. Pt reports she is in just as much pain today as I was the day after surgery. Pt performs limited ambulation around her home, basically just between her bed, chair, and bathroom. Pt reports she has been using a CPM machine, and is able to get up to 30 degrees flexion. Pt reports pain is about a 6/10 at rest, but is more like an 8/10 if she moves her leg. Pt is also reporting she has had a temperature this past week, hovering around 99 degrees, which is up from her usual temp of 97.6. Pt has been struggling with mobility secondary to pain. Personal Factors Other Personal Factors That May Effect Pt continues to be very self- Therapy/Recovery restrictive due to pain and, more frequently, fear of pain. PT-OP-C Subjective Start: 07/05/20 07:34 Freq: Status: Active Protocol: Document 07/22/20 15:17 DCW (Rec: 07/22/20 16:05 DCW [id number]) OP-PT Subjective Patient Comments Patient Comments Pt notes she is feeling better than last week, still threatens to not leave her chair, but then is willing to. PT-OP-E Functional Tests Start: 07/19/20 15:45 Freq: Status: Active Protocol: Document 07/19/20 15:20 DCW (Rec: 07/19/20 15:59 DCW [id number]) Functional Tests 2 Minute Walk Test Distance 16 Device Used FWW Comments Stopped at 1'12 PT-OP-G Mobility & Gait Start: 07/05/20 07:34 Freq: Status: Active Protocol: Document 07/19/20 15:20 DCW (Rec: 07/19/20 15:59 DCW [id number]) OP Gait Assessment Gait Gait Assistance Required: Minimum Assistance Distance (Feet) 16 Assistive Devices Assistive Device Front Wheeled Walker Gait Deviations General Gait Pattern Antalgic,Decreased Stride Length,Decreased Feet Clearance,Flexed Trunk,Narrow Based Gait,Step-to Gait Factors Limiting Gait Function Factors Limiting Gait Function Decreased Activity Tolerance, Decreased Strength,Limited Range of Motion,Pain,Poor Safety Awareness PT-OP-J Posture/Palpation/Skin Start: 07/05/20 07:34 Freq: Status: Active Protocol: Document 07/19/20 15:20 DCW (Rec: 07/19/20 15:45 DCW [id number]) Skin Assessment Circumference Measurement 3 Location 10 cm inferior to L Joint Line Measurement (Centimeters) 45.1 Comments 10 cm inerior to R Joint Line = 40.1 2 Location 10 cm superior to L Joint Line Measurement (Centimeters) 57.7 Comments 10 cm superior to R Joint Line = 48.0 1 Location L Joint Line Measurement (Centimeters) 50.4 Comments R Joint line = 45.3 PT-OP-K Range of Motion Start: 07/05/20 07:34 Freq: Status: Active Protocol: Document 07/19/20 15:20 DCW (Rec: 07/19/20 15:45 DCW [id number]) Knee Goniometric Range of Motion Knee Left Knee ROM WFL No Patient Position Sitting Flexion Active (degrees) 71 Extension Active (degrees) 15 PT-OP-M Strength Start: 07/05/20 07:34 Freq: Status: Active Protocol: Document 07/19/20 15:20 DCW (Rec: 07/19/20 15:45 DCW [id number]) Hip Strength Hip Manual Muscle Testing Left Flexion (L2) 4- Good- Abduction 3+ Fair+ Knee Strength Knee Manual Muscle Testing Right Flexion (S2) 4 Good Extension (L3) 4 Good Left Flexion (S2) 3- Fair- Extension (L3) 3- Fair- PT-OP-Q Treatments Start: 07/05/20 07:34 Freq: Status: Active Protocol: Document 07/22/20 15:17 DCW (Rec: 07/22/20 16:05 DCW [id number]) Cardio Equipment Recumbent Bicycle Duration (Minutes) 4 Resistance 0 Other does not complete full rotations Gym Equipment Therapeutic Ball Knee flexion stretch Exercise Details Knee flexion stretch /c strap Ball Size/Color Blue - 45 cm Body Position Supine Comments 5 hold Therapeutic Exercises Supine Exercises 1 Supine Exercise Name Extension stretch Side left Reps/Minutes 45 x2 Sitting Exercises Hamstring Curl Sitting Exercise Name HS Curl Side left Resistance Lv 1 Long Arc Quad Sitting Exercise Name LAQ Side left Resistance 2# Gait Training Gait Activity 2 mwt Description 87' Device Used FWW Manual Therapy Treatment Joint Mobilizations 1 Joint Knee Direction P->A Grade II Manual Techniques 1 Type Manual knee ROM Body Position Supine PT-OP-T Assessment and Plan Start: 07/05/20 07:34 Freq: Status: Active Protocol: Document 07/22/20 15:17 DCW (Rec: 07/22/20 16:05 DCW [id number]) Physical Therapy Assessment Impairments Impairments Activity Tolerance,Balance, Functional Activities, Functional Mobility,Gait, Integument,Pain,Posture,ROM, Soft Tissue Mobility,Strength, Transfers Other Impairments Pt has low pain threshold and limits all ROM, functional activities and MMT. She tends to rely on her for assistance. She has a recent history of HTN, stroke. Pt has history of not getting into the bed and sleeping in recliner and she is getting a passive ROM machine and will have to use it in the bed at home. She has B LE edema and wear knee high compression which may exacerbate edema in the posterior knee. Goals Six Impairment Pt ambulates 16' during 2 MWT Short Term Goal (STG) Pt to ambulate 240' during 2 MWT to show decrease in risk of further functional decline by exhibiting a gait speed >1. 97 ft/sec 5 Customer Marketing Assistant Goal (LTG) Pt will present with LE functional index score to reflect no more than 30% impairment to allow improved functional I LTG Duration 09/18/20 Four Customer Marketing Assistant Goal (LTG) Pt will present with improved left knee AROM to at least 3- 115 deg to improve functional transfers LTG Duration 09/18/20 Three Customer Marketing Assistant Goal (LTG) Pt will by able to perform at least 10 reps sit to stand without UE support in 30 sec to improve safety with transfers at home LTG Duration 09/18/20 Two Customer Marketing Assistant Goal (LTG) Pt will be able to get in and OOB I (on plinth, into supine and back off plinth) with I to improve bed mobility at home LTG Duration 09/18/20 One Short Term Goal (STG) Pt will perform progressive HEP with handouts to improve ROM, flexibility, strength, sit to stands, balance and gait STG Duration 08/18/20 Assessment Summary Assessment Pt showing improvment with ambulation today, increasing 2 MWT from 16' to 87' since last week, still very self- limiting secondary to pain, discussed with patient necessity of working through mild pain after TKA to avoid need for manipulation if she doesn't progress her ROM. Physical Therapy Plan Frequency and Duration Frequency of Treatment 2x/Week Duration of Treatment 2 months Plan of Care Start Date 07/19/20 Plan of Care End Date 09/18/20 Therapeutic Interventions Therapeutic Interventions Aquatic Therapy,Balance Training,Canalithic Repositioning,Gait Training, Home Exercise Program,Manual Therapy,Neuromuscular Re- education,Patient/Caregiver Education,Self-Care/Home Management,Soft Tissue Mobilization,Taping, Therapeutic Activities, Therapeutic Exercises Modalities Cold Pack/Ice Massage,Electric Stimulation,Hot Packs, Ultrasound Next Visit Focus/Plan Next Note Type Treatment Note Next Visit Plan ROM, Strengthening, gait
--- NOTE | 2020-07-24 15:59 | PT.OTN ---
Current Diagnoses Unilateral primary osteoarthritis, left knee (07/24/20) Physical Therapy Treatment Note PT-OP-A Visit Information Start: 07/05/20 07:34 Freq: Status: Active Protocol: Document 07/24/20 15:15 DCW (Rec: 07/24/20 15:59 DCW [id number]) Out-Patient Physical Therapy Visit Information Visit Information Visit Type Treatment Note Visit Start Time 15:15 Visit Stop Time 16:00 Total Visit Minutes 45 Visit Number 4 Number of PIZZA MAKER Visits 0 Evaluation Information Evaluation Date 07/05/20 PT-OP-B Current Condition Start: 07/05/20 07:34 Freq: Status: Active Protocol: Document 07/19/20 15:20 DCW (Rec: 07/19/20 15:45 DCW [id number]) Current Condition History of Current Condition Onset Date 10 years Current Complaints Post-op L TKA History of Current Condition Pt returns to therapy today following L TKA on 07/10/20. Pt reports she is in just as much pain today as I was the day after surgery. Pt performs limited ambulation around her home, basically just between her bed, chair, and bathroom. Pt reports she has been using a CPM machine, and is able to get up to 30 degrees flexion. Pt reports pain is about a 6/10 at rest, but is more like an 8/10 if she moves her leg. Pt is also reporting she has had a temperature this past week, hovering around 99 degrees, which is up from her usual temp of 97.6. Pt has been struggling with mobility secondary to pain. Personal Factors Other Personal Factors That May Effect Pt continues to be very self- Therapy/Recovery restrictive due to pain and, more frequently, fear of pain. PT-OP-C Subjective Start: 07/05/20 07:34 Freq: Status: Active Protocol: Document 07/24/20 15:15 DCW (Rec: 07/24/20 15:59 DCW [id number]) OP-PT Subjective Patient Comments Patient Comments I can't tolerate this amount of pain. When I had PT in [place] after my other knee replacement, they had this machine that they turned on and waved their hands over my knee, and I watched my swelling go down. PT-OP-E Functional Tests Start: 07/19/20 15:45 Freq: Status: Active Protocol: Document 07/19/20 15:20 DCW (Rec: 07/19/20 15:59 DCW [id number]) Functional Tests 2 Minute Walk Test Distance 16 Device Used FWW Comments Stopped at 1'12 PT-OP-G Mobility & Gait Start: 07/05/20 07:34 Freq: Status: Active Protocol: Document 07/19/20 15:20 DCW (Rec: 07/19/20 15:59 DCW [id number]) OP Gait Assessment Gait Gait Assistance Required: Minimum Assistance Distance (Feet) 16 Assistive Devices Assistive Device Front Wheeled Walker Gait Deviations General Gait Pattern Antalgic,Decreased Stride Length,Decreased Feet Clearance,Flexed Trunk,Narrow Based Gait,Step-to Gait Factors Limiting Gait Function Factors Limiting Gait Function Decreased Activity Tolerance, Decreased Strength,Limited Range of Motion,Pain,Poor Safety Awareness PT-OP-J Posture/Palpation/Skin Start: 07/05/20 07:34 Freq: Status: Active Protocol: Document 07/19/20 15:20 DCW (Rec: 07/19/20 15:45 DCW [id number]) Skin Assessment Circumference Measurement 3 Location 10 cm inferior to L Joint Line Measurement (Centimeters) 45.1 Comments 10 cm inerior to R Joint Line = 40.1 2 Location 10 cm superior to L Joint Line Measurement (Centimeters) 57.7 Comments 10 cm superior to R Joint Line = 48.0 1 Location L Joint Line Measurement (Centimeters) 50.4 Comments R Joint line = 45.3 PT-OP-K Range of Motion Start: 07/05/20 07:34 Freq: Status: Active Protocol: Document 07/19/20 15:20 DCW (Rec: 07/19/20 15:45 DCW [id number]) Knee Goniometric Range of Motion Knee Left Knee ROM WFL No Patient Position Sitting Flexion Active (degrees) 71 Extension Active (degrees) 15 PT-OP-M Strength Start: 07/05/20 07:34 Freq: Status: Active Protocol: Document 07/19/20 15:20 DCW (Rec: 07/19/20 15:45 DCW [id number]) Hip Strength Hip Manual Muscle Testing Left Flexion (L2) 4- Good- Abduction 3+ Fair+ Knee Strength Knee Manual Muscle Testing Right Flexion (S2) 4 Good Extension (L3) 4 Good Left Flexion (S2) 3- Fair- Extension (L3) 3- Fair- PT-OP-Q Treatments Start: 07/05/20 07:34 Freq: Status: Active Protocol: Document 07/24/20 15:15 DCW (Rec: 07/24/20 15:59 DCW [id number]) Cardio Equipment Recumbent Bicycle Duration (Minutes) 6 Resistance 0 Seat Position 5 Other does not complete full rotations Gym Equipment Shuttle Recovery Bilateral Squats Resistance 50# Shuttle Recovery Platform Stable Therapeutic Exercises Supine Exercises 1 Supine Exercise Name Extension stretch Side left Post-op TKA exercises QS, AP, HS, SAQ, heel dangle Supine Exercise Name SAQ Resistance 0# Sitting Exercises Hamstring Curl Sitting Exercise Name HS Curl Side left Resistance Lv 1 Long Arc Quad Sitting Exercise Name LAQ Side left Resistance 2# Manual Therapy Treatment Joint Mobilizations 1 Joint Knee Direction P->A Grade II Manual Techniques 1 Type Manual knee ROM Body Position Supine PT-OP-T Assessment and Plan Start: 07/05/20 07:34 Freq: Status: Active Protocol: Document 07/24/20 15:15 DCW (Rec: 07/24/20 15:59 DCW [id number]) Physical Therapy Assessment Impairments Impairments Activity Tolerance,Balance, Functional Activities, Functional Mobility,Gait, Integument,Pain,Posture,ROM, Soft Tissue Mobility,Strength, Transfers Other Impairments Pt has low pain threshold and limits all ROM, functional activities and MMT. She tends to rely on her for assistance. She has a recent history of HTN, stroke. Pt has history of not getting into the bed and sleeping in recliner and she is getting a passive ROM machine and will have to use it in the bed at home. She has B LE edema and wear knee high compression which may exacerbate edema in the posterior knee. Goals Six Impairment Pt ambulates 16' during 2 MWT Short Term Goal (STG) Pt to ambulate 240' during 2 MWT to show decrease in risk of further functional decline by exhibiting a gait speed >1. 97 ft/sec 5 Night Time Nanny Goal (LTG) Pt will present with LE functional index score to reflect no more than 30% impairment to allow improved functional I LTG Duration 09/18/20 Four Night Time Nanny Goal (LTG) Pt will present with improved left knee AROM to at least 3- 115 deg to improve functional transfers LTG Duration 09/18/20 Three Half-Way Goal (LTG) Pt will by able to perform at least 10 reps sit to stand without UE support in 30 sec to improve safety with transfers at home LTG Duration 09/18/20 Two Half-Way Goal (LTG) Pt will be able to get in and OOB I (on plinth, into supine and back off plinth) with I to improve bed mobility at home LTG Duration 09/18/20 One Short Term Goal (STG) Pt will perform progressive HEP with handouts to improve ROM, flexibility, strength, sit to stands, balance and gait STG Duration 08/18/20 Assessment Summary Assessment Pt still very self-limiting, c /o pain and responds negatively whenever asked to perform any activity, but will then relent and do the requested action. Pt requires nearly constant breaks. Physical Therapy Plan Frequency and Duration Frequency of Treatment 2x/Week Duration of Treatment 2 months Plan of Care Start Date 07/19/20 Plan of Care End Date 09/18/20 Therapeutic Interventions Therapeutic Interventions Aquatic Therapy,Balance Training,Canalithic Repositioning,Gait Training, Home Exercise Program,Manual Therapy,Neuromuscular Re- education,Patient/Caregiver Education,Self-Care/Home Management,Soft Tissue Mobilization,Taping, Therapeutic Activities, Therapeutic Exercises Modalities Cold Pack/Ice Massage,Electric Stimulation,Hot Packs, Ultrasound Next Visit Focus/Plan Next Note Type Treatment Note Next Visit Plan ROM, Strengthening, gait
--- NOTE | 2020-07-29 16:04 | PT.OTN ---
Current Diagnoses Unilateral primary osteoarthritis, left knee (07/29/20) Physical Therapy Treatment Note PT-OP-A Visit Information Start: 07/05/20 07:34 Freq: Status: Active Protocol: Document 07/29/20 15:20 DCW (Rec: 07/29/20 16:04 DCW [id number]) Out-Patient Physical Therapy Visit Information Visit Information Visit Type Treatment Note Visit Start Time 15:20 Visit Stop Time 16:00 Total Visit Minutes 40 Visit Number 5 Number of COMMERCIAL BANKER Visits 0 Evaluation Information Evaluation Date 07/05/20 PT-OP-B Current Condition Start: 07/05/20 07:34 Freq: Status: Active Protocol: Document 07/19/20 15:20 DCW (Rec: 07/19/20 15:45 DCW [id number]) Current Condition History of Current Condition Onset Date 10 years Current Complaints Post-op L TKA History of Current Condition Pt returns to therapy today following L TKA on 07/10/20. Pt reports she is in just as much pain today as I was the day after surgery. Pt performs limited ambulation around her home, basically just between her bed, chair, and bathroom. Pt reports she has been using a CPM machine, and is able to get up to 30 degrees flexion. Pt reports pain is about a 6/10 at rest, but is more like an 8/10 if she moves her leg. Pt is also reporting she has had a temperature this past week, hovering around 99 degrees, which is up from her usual temp of 97.6. Pt has been struggling with mobility secondary to pain. Personal Factors Other Personal Factors That May Effect Pt continues to be very self- Therapy/Recovery restrictive due to pain and, more frequently, fear of pain. PT-OP-C Subjective Start: 07/05/20 07:34 Freq: Status: Active Protocol: Document 07/29/20 15:20 DCW (Rec: 07/29/20 16:04 DCW [id number]) OP-PT Subjective Patient Comments Patient Comments I got on my bendy machine ( CPM) and was doing 90 degrees bent and zero degrees straight . It hurt, so I thought you'd like that. PT-OP-E Functional Tests Start: 07/19/20 15:45 Freq: Status: Active Protocol: Document 07/19/20 15:20 DCW (Rec: 07/19/20 15:59 DCW [id number]) Functional Tests 2 Minute Walk Test Distance 16 Device Used FWW Comments Stopped at 1'12 PT-OP-G Mobility & Gait Start: 07/05/20 07:34 Freq: Status: Active Protocol: Document 07/19/20 15:20 DCW (Rec: 07/19/20 15:59 DCW [id number]) OP Gait Assessment Gait Gait Assistance Required: Minimum Assistance Distance (Feet) 16 Assistive Devices Assistive Device Front Wheeled Walker Gait Deviations General Gait Pattern Antalgic,Decreased Stride Length,Decreased Feet Clearance,Flexed Trunk,Narrow Based Gait,Step-to Gait Factors Limiting Gait Function Factors Limiting Gait Function Decreased Activity Tolerance, Decreased Strength,Limited Range of Motion,Pain,Poor Safety Awareness PT-OP-J Posture/Palpation/Skin Start: 07/05/20 07:34 Freq: Status: Active Protocol: Document 07/19/20 15:20 DCW (Rec: 07/19/20 15:45 DCW [id number]) Skin Assessment Circumference Measurement 3 Location 10 cm inferior to L Joint Line Measurement (Centimeters) 45.1 Comments 10 cm inerior to R Joint Line = 40.1 2 Location 10 cm superior to L Joint Line Measurement (Centimeters) 57.7 Comments 10 cm superior to R Joint Line = 48.0 1 Location L Joint Line Measurement (Centimeters) 50.4 Comments R Joint line = 45.3 PT-OP-K Range of Motion Start: 07/05/20 07:34 Freq: Status: Active Protocol: Document 07/19/20 15:20 DCW (Rec: 07/19/20 15:45 DCW [id number]) Knee Goniometric Range of Motion Knee Left Knee ROM WFL No Patient Position Sitting Flexion Active (degrees) 71 Extension Active (degrees) 15 PT-OP-M Strength Start: 07/05/20 07:34 Freq: Status: Active Protocol: Document 07/19/20 15:20 DCW (Rec: 07/19/20 15:45 DCW [id number]) Hip Strength Hip Manual Muscle Testing Left Flexion (L2) 4- Good- Abduction 3+ Fair+ Knee Strength Knee Manual Muscle Testing Right Flexion (S2) 4 Good Extension (L3) 4 Good Left Flexion (S2) 3- Fair- Extension (L3) 3- Fair- PT-OP-Q Treatments Start: 07/05/20 07:34 Freq: Status: Active Protocol: Document 07/29/20 15:20 DCW (Rec: 07/29/20 16:04 DCW [id number]) Cardio Equipment Recumbent Bicycle Duration (Minutes) 6 Resistance 0 Seat Position 5 Other does not complete full rotations Therapeutic Exercises Supine Exercises 1 Supine Exercise Name Extension stretch Side left Post-op TKA exercises QS, AP, HS, SAQ, heel dangle Supine Exercise Name SAQ Resistance 0# Sitting Exercises Hamstring Curl Sitting Exercise Name HS Curl Side left Resistance Lv 1 Long Arc Quad Sitting Exercise Name LAQ Side left Resistance 2# Standing Exercises TKE Standing Exercise Name TKE Side left Resistance Lv 1 Equipment Used T-band step flexion stretch Standing Exercise Name Step stretch Side left Manual Therapy Treatment Manual Techniques 1 Type Manual knee ROM Body Position Supine PT-OP-T Assessment and Plan Start: 07/05/20 07:34 Freq: Status: Active Protocol: Document 07/29/20 15:20 DCW (Rec: 07/29/20 16:04 DCW [id number]) Physical Therapy Assessment Impairments Impairments Activity Tolerance,Balance, Functional Activities, Functional Mobility,Gait, Integument,Pain,Posture,ROM, Soft Tissue Mobility,Strength, Transfers Other Impairments Pt has low pain threshold and limits all ROM, functional activities and MMT. She tends to rely on her for assistance. She has a recent history of HTN, stroke. Pt has history of not getting into the bed and sleeping in recliner and she is getting a passive ROM machine and will have to use it in the bed at home. She has B LE edema and wear knee high compression which may exacerbate edema in the posterior knee. Goals Six Impairment Pt ambulates 16' during 2 MWT Short Term Goal (STG) Pt to ambulate 240' during 2 MWT to show decrease in risk of further functional decline by exhibiting a gait speed >1. 97 ft/sec 5 Senior Care Goal (LTG) Pt will present with LE functional index score to reflect no more than 30% impairment to allow improved functional I LTG Duration 09/18/20 Four Clinical Appeals Reviewer Goal (LTG) Pt will present with improved left knee AROM to at least 3- 115 deg to improve functional transfers LTG Duration 09/18/20 Three Senior Care Goal (LTG) Pt will by able to perform at least 10 reps sit to stand without UE support in 30 sec to improve safety with transfers at home LTG Duration 09/18/20 Two Clinical Appeals Reviewer Goal (LTG) Pt will be able to get in and OOB I (on plinth, into supine and back off plinth) with I to improve bed mobility at home LTG Duration 09/18/20 One Short Term Goal (STG) Pt will perform progressive HEP with handouts to improve ROM, flexibility, strength, sit to stands, balance and gait STG Duration 08/18/20 Assessment Summary Assessment Pt tolerating a little bit more activity today, still limited secondary to pain. Gait much improved, good stride length and able to have continuous forward motion with FWW Physical Therapy Plan Frequency and Duration Frequency of Treatment 2x/Week Duration of Treatment 2 months Plan of Care Start Date 07/19/20 Plan of Care End Date 09/18/20 Therapeutic Interventions Therapeutic Interventions Aquatic Therapy,Balance Training,Canalithic Repositioning,Gait Training, Home Exercise Program,Manual Therapy,Neuromuscular Re- education,Patient/Caregiver Education,Self-Care/Home Management,Soft Tissue Mobilization,Taping, Therapeutic Activities, Therapeutic Exercises Modalities Cold Pack/Ice Massage,Electric Stimulation,Hot Packs, Ultrasound Next Visit Focus/Plan Next Note Type Treatment Note Next Visit Plan ROM, Strengthening, gait
--- NOTE | 2020-07-31 16:03 | PT.OTN ---
Current Diagnoses Unilateral primary osteoarthritis, left knee (07/31/20) Physical Therapy Treatment Note PT-OP-A Visit Information Start: 07/05/20 07:34 Freq: Status: Active Protocol: Document 07/31/20 15:17 DCW (Rec: 07/31/20 16:03 DCW [id number]) Out-Patient Physical Therapy Visit Information Visit Information Visit Type Treatment Note Visit Start Time 15:17 Visit Stop Time 16:00 Total Visit Minutes 43 Visit Number 6 Number of ELEVATOR CONSTRUCTOR Visits 0 Evaluation Information Evaluation Date 07/05/20 PT-OP-B Current Condition Start: 07/05/20 07:34 Freq: Status: Active Protocol: Document 07/19/20 15:20 DCW (Rec: 07/19/20 15:45 DCW [id number]) Current Condition History of Current Condition Onset Date 10 years Current Complaints Post-op L TKA History of Current Condition Pt returns to therapy today following L TKA on 07/10/20. Pt reports she is in just as much pain today as I was the day after surgery. Pt performs limited ambulation around her home, basically just between her bed, chair, and bathroom. Pt reports she has been using a CPM machine, and is able to get up to 30 degrees flexion. Pt reports pain is about a 6/10 at rest, but is more like an 8/10 if she moves her leg. Pt is also reporting she has had a temperature this past week, hovering around 99 degrees, which is up from her usual temp of 97.6. Pt has been struggling with mobility secondary to pain. Personal Factors Other Personal Factors That May Effect Pt continues to be very self- Therapy/Recovery restrictive due to pain and, more frequently, fear of pain. PT-OP-C Subjective Start: 07/05/20 07:34 Freq: Status: Active Protocol: Document 07/31/20 15:17 DCW (Rec: 07/31/20 16:03 DCW [id number]) OP-PT Subjective Patient Comments Patient Comments Pt reports that she is walking better, not much pain when up moving around. Notes she was able to get into the car without screaming. PT-OP-E Functional Tests Start: 07/19/20 15:45 Freq: Status: Active Protocol: Document 07/19/20 15:20 DCW (Rec: 07/19/20 15:59 DCW [id number]) Functional Tests 2 Minute Walk Test Distance 16 Device Used FWW Comments Stopped at 1'12 PT-OP-G Mobility & Gait Start: 07/05/20 07:34 Freq: Status: Active Protocol: Document 07/19/20 15:20 DCW (Rec: 07/19/20 15:59 DCW [id number]) OP Gait Assessment Gait Gait Assistance Required: Minimum Assistance Distance (Feet) 16 Assistive Devices Assistive Device Front Wheeled Walker Gait Deviations General Gait Pattern Antalgic,Decreased Stride Length,Decreased Feet Clearance,Flexed Trunk,Narrow Based Gait,Step-to Gait Factors Limiting Gait Function Factors Limiting Gait Function Decreased Activity Tolerance, Decreased Strength,Limited Range of Motion,Pain,Poor Safety Awareness PT-OP-J Posture/Palpation/Skin Start: 07/05/20 07:34 Freq: Status: Active Protocol: Document 07/19/20 15:20 DCW (Rec: 07/19/20 15:45 DCW [id number]) Skin Assessment Circumference Measurement 3 Location 10 cm inferior to L Joint Line Measurement (Centimeters) 45.1 Comments 10 cm inerior to R Joint Line = 40.1 2 Location 10 cm superior to L Joint Line Measurement (Centimeters) 57.7 Comments 10 cm superior to R Joint Line = 48.0 1 Location L Joint Line Measurement (Centimeters) 50.4 Comments R Joint line = 45.3 PT-OP-K Range of Motion Start: 07/05/20 07:34 Freq: Status: Active Protocol: Document 07/19/20 15:20 DCW (Rec: 07/19/20 15:45 DCW [id number]) Knee Goniometric Range of Motion Knee Left Knee ROM WFL No Patient Position Sitting Flexion Active (degrees) 71 Extension Active (degrees) 15 PT-OP-M Strength Start: 07/05/20 07:34 Freq: Status: Active Protocol: Document 07/19/20 15:20 DCW (Rec: 07/19/20 15:45 DCW [id number]) Hip Strength Hip Manual Muscle Testing Left Flexion (L2) 4- Good- Abduction 3+ Fair+ Knee Strength Knee Manual Muscle Testing Right Flexion (S2) 4 Good Extension (L3) 4 Good Left Flexion (S2) 3- Fair- Extension (L3) 3- Fair- PT-OP-Q Treatments Start: 08/28/20 07:34 Freq: Status: Active Protocol: Document 07/31/20 15:17 DCW (Rec: 07/31/20 16:03 DCW [id number]) Cardio Equipment Recumbent Bicycle Duration (Minutes) 6 Resistance 0 Seat Position 5 Other does not complete full rotations Gym Equipment Shuttle Recovery Bilateral Squats Resistance 50# Shuttle Recovery Platform Stable Therapeutic Exercises Supine Exercises 1 Supine Exercise Name Extension stretch Side left Post-op TKA exercises QS, AP, HS, SAQ, heel dangle Supine Exercise Name SAQ Resistance 0# Sitting Exercises Long Arc Quad Sitting Exercise Name LAQ Side bilateral Resistance 2# Therapeutic Activity Therapeutic Activity 1 Name Sit<->Stands Reps/Minutes x7 Manual Therapy Treatment Manual Techniques 1 Type Manual knee ROM Body Position Supine PT-OP-T Assessment and Plan Start: 07/05/20 07:34 Freq: Status: Active Protocol: Document 07/31/20 15:17 DCW (Rec: 07/31/20 16:03 DCW [id number]) Physical Therapy Assessment Impairments Impairments Activity Tolerance,Balance, Functional Activities, Functional Mobility,Gait, Integument,Pain,Posture,ROM, Soft Tissue Mobility,Strength, Transfers Other Impairments Pt has low pain threshold and limits all ROM, functional activities and MMT. She tends to rely on her for assistance. She has a recent history of HTN, stroke. Pt has history of not getting into the bed and sleeping in recliner and she is getting a passive ROM machine and will have to use it in the bed at home. She has B LE edema and wear knee high compression which may exacerbate edema in the posterior knee. Goals Six Impairment Pt ambulates 16' during 2 MWT Short Term Goal (STG) Pt to ambulate 240' during 2 MWT to show decrease in risk of further functional decline by exhibiting a gait speed >1. 97 ft/sec STG Duration 09/18/20 5 Fpc Goal (LTG) Pt will present with LE functional index score to reflect no more than 30% impairment to allow improved functional I LTG Duration 09/18/20 Four Sales Team Manager Goal (LTG) Pt will present with improved left knee AROM to at least 3- 115 deg to improve functional transfers LTG Duration 09/18/20 Three Sales Team Manager Goal (LTG) Pt will by able to perform at least 10 reps sit to stand without UE support in 30 sec to improve safety with transfers at home LTG Duration 09/18/20 Two Sales Team Manager Goal (LTG) Pt will be able to get in and OOB I (on plinth, into supine and back off plinth) with I to improve bed mobility at home LTG Duration 09/18/20 One Short Term Goal (STG) Pt will perform progressive HEP with handouts to improve ROM, flexibility, strength, sit to stands, balance and gait STG Duration 08/18/20 Assessment Summary Assessment Pt showing improvement with passive extension today, experiencing less pain with transfers and ambulation. Physical Therapy Plan Frequency and Duration Frequency of Treatment 2x/Week Duration of Treatment 2 months Plan of Care Start Date 07/19/20 Plan of Care End Date 09/18/20 Therapeutic Interventions Therapeutic Interventions Aquatic Therapy,Balance Training,Canalithic Repositioning,Gait Training, Home Exercise Program,Manual Therapy,Neuromuscular Re- education,Patient/Caregiver Education,Self-Care/Home Management,Soft Tissue Mobilization,Taping, Therapeutic Activities, Therapeutic Exercises Modalities Cold Pack/Ice Massage,Electric Stimulation,Hot Packs, Ultrasound Next Visit Focus/Plan Next Note Type Treatment Note Next Visit Plan ROM, Strengthening, gait
--- NOTE | 2020-08-05 16:03 | PT.OTN ---
Current Diagnoses Unilateral primary osteoarthritis, left knee (08/05/20) Physical Therapy Treatment Note PT-OP-A Visit Information Start: 07/05/20 07:34 Freq: Status: Active Protocol: Document 08/05/20 15:15 DCW (Rec: 08/05/20 16:03 DCW [id number]) Out-Patient Physical Therapy Visit Information Visit Information Visit Type Treatment Note Visit Start Time 15:15 Visit Stop Time 16:00 Total Visit Minutes 45 Visit Number 7 Number of MANAGER ENVIRONMENTAL HEALTH Visits 0 Evaluation Information Evaluation Date 07/05/20 PT-OP-B Current Condition Start: 07/05/20 07:34 Freq: Status: Active Protocol: Document 07/19/20 15:20 DCW (Rec: 07/19/20 15:45 DCW [id number]) Current Condition History of Current Condition Onset Date 10 years Current Complaints Post-op L TKA History of Current Condition Pt returns to therapy today following L TKA on 07/10/20. Pt reports she is in just as much pain today as I was the day after surgery. Pt performs limited ambulation around her home, basically just between her bed, chair, and bathroom. Pt reports she has been using a CPM machine, and is able to get up to 30 degrees flexion. Pt reports pain is about a 6/10 at rest, but is more like an 8/10 if she moves her leg. Pt is also reporting she has had a temperature this past week, hovering around 99 degrees, which is up from her usual temp of 97.6. Pt has been struggling with mobility secondary to pain. Personal Factors Other Personal Factors That May Effect Pt continues to be very self- Therapy/Recovery restrictive due to pain and, more frequently, fear of pain. PT-OP-C Subjective Start: 07/05/20 07:34 Freq: Status: Active Protocol: Document 08/05/20 15:15 DCW (Rec: 08/05/20 16:03 DCW [id number]) OP-PT Subjective Patient Comments Patient Comments I got into and out of my car today without screaming, so that's improvement. Pt notes she is struggling to get up out of her recliner at home, and until I do that, I'm not independent. PT-OP-E Functional Tests Start: 07/19/20 15:45 Freq: Status: Active Protocol: Document 07/19/20 15:20 DCW (Rec: 07/19/20 15:59 DCW [id number]) Functional Tests 2 Minute Walk Test Distance 16 Device Used FWW Comments Stopped at 1'12 PT-OP-G Mobility & Gait Start: 07/05/20 07:34 Freq: Status: Active Protocol: Document 07/19/20 15:20 DCW (Rec: 07/19/20 15:59 DCW [id number]) OP Gait Assessment Gait Gait Assistance Required: Minimum Assistance Distance (Feet) 16 Assistive Devices Assistive Device Front Wheeled Walker Gait Deviations General Gait Pattern Antalgic,Decreased Stride Length,Decreased Feet Clearance,Flexed Trunk,Narrow Based Gait,Step-to Gait Factors Limiting Gait Function Factors Limiting Gait Function Decreased Activity Tolerance, Decreased Strength,Limited Range of Motion,Pain,Poor Safety Awareness PT-OP-J Posture/Palpation/Skin Start: 07/05/20 07:34 Freq: Status: Active Protocol: Document 07/19/20 15:20 DCW (Rec: 07/19/20 15:45 DCW [id number]) Skin Assessment Circumference Measurement 3 Location 10 cm inferior to L Joint Line Measurement (Centimeters) 45.1 Comments 10 cm inerior to R Joint Line = 40.1 2 Location 10 cm superior to L Joint Line Measurement (Centimeters) 57.7 Comments 10 cm superior to R Joint Line = 48.0 1 Location L Joint Line Measurement (Centimeters) 50.4 Comments R Joint line = 45.3 PT-OP-K Range of Motion Start: 07/05/20 07:34 Freq: Status: Active Protocol: Document 07/19/20 15:20 DCW (Rec: 07/19/20 15:45 DCW [id number]) Knee Goniometric Range of Motion Knee Left Knee ROM WFL No Patient Position Sitting Flexion Active (degrees) 71 Extension Active (degrees) 15 PT-OP-M Strength Start: 07/05/20 07:34 Freq: Status: Active Protocol: Document 07/19/20 15:20 DCW (Rec: 07/19/20 15:45 DCW [id number]) Hip Strength Hip Manual Muscle Testing Left Flexion (L2) 4- Good- Abduction 3+ Fair+ Knee Strength Knee Manual Muscle Testing Right Flexion (S2) 4 Good Extension (L3) 4 Good Left Flexion (S2) 3- Fair- Extension (L3) 3- Fair- PT-OP-Q Treatments Start: 07/05/20 07:34 Freq: Status: Active Protocol: Document 08/05/20 15:15 DCW (Rec: 08/05/20 16:03 DCW [id number]) Cardio Equipment Recumbent Bicycle Duration (Minutes) 6 Resistance 0 Seat Position 5 Other does not complete full rotations Gym Equipment Shuttle Recovery Bilateral Squats Resistance 50# Shuttle Recovery Platform Stable Therapeutic Exercises Standing Exercises TKE Standing Exercise Name TKE Side left Resistance Lv 2 Equipment Used T-band Hip Extension Standing Exercise Name Hip Extension Side left Resistance Lv 2 Equipment Used T-band Therapeutic Activity Therapeutic Activity 1 Name Sit<->Stands Reps/Minutes x10 Comments Lowest setting black table Manual Therapy Treatment Manual Techniques 1 Type Manual knee ROM Body Position Supine PT-OP-T Assessment and Plan Start: 07/05/20 07:34 Freq: Status: Active Protocol: Document 08/05/20 15:15 DCW (Rec: 08/05/20 16:03 DCW [id number]) Physical Therapy Assessment Impairments Impairments Activity Tolerance,Balance, Functional Activities, Functional Mobility,Gait, Integument,Pain,Posture,ROM, Soft Tissue Mobility,Strength, Transfers Other Impairments Pt has low pain threshold and limits all ROM, functional activities and MMT. She tends to rely on her for assistance. She has a recent history of HTN, stroke. Pt has history of not getting into the bed and sleeping in recliner and she is getting a passive ROM machine and will have to use it in the bed at home. She has B LE edema and wear knee high compression which may exacerbate edema in the posterior knee. Goals Six Impairment Pt ambulates 16' during 2 MWT Short Term Goal (STG) Pt to ambulate 240' during 2 MWT to show decrease in risk of further functional decline by exhibiting a gait speed >1. 97 ft/sec STG Duration 09/18/20 5 Frankfurter Inspector Goal (LTG) Pt will present with LE functional index score to reflect no more than 30% impairment to allow improved functional I LTG Duration 09/18/20 Four Frankfurter Inspector Goal (LTG) Pt will present with improved left knee AROM to at least 3- 115 deg to improve functional transfers LTG Duration 09/18/20 Three Frankfurter Inspector Goal (LTG) Pt will by able to perform at least 10 reps sit to stand without UE support in 30 sec to improve safety with transfers at home LTG Duration 09/18/20 Two Frankfurter Inspector Goal (LTG) Pt will be able to get in and OOB I (on plinth, into supine and back off plinth) with I to improve bed mobility at home LTG Duration 09/18/20 One Short Term Goal (STG) Pt will perform progressive HEP with handouts to improve ROM, flexibility, strength, sit to stands, balance and gait STG Duration 08/18/20 Assessment Summary Assessment Pt showed improved ability today to lift L leg into leg press and onto table without assistance. Physical Therapy Plan Frequency and Duration Frequency of Treatment 2x/Week Duration of Treatment 2 months Plan of Care Start Date 07/19/20 Plan of Care End Date 09/18/20 Therapeutic Interventions Therapeutic Interventions Aquatic Therapy,Balance Training,Canalithic Repositioning,Gait Training, Home Exercise Program,Manual Therapy,Neuromuscular Re- education,Patient/Caregiver Education,Self-Care/Home Management,Soft Tissue Mobilization,Taping, Therapeutic Activities, Therapeutic Exercises Modalities Cold Pack/Ice Massage,Electric Stimulation,Hot Packs, Ultrasound Next Visit Focus/Plan Next Note Type Treatment Note Next Visit Plan ROM, Strengthening, gait
--- NOTE | 2020-08-07 16:01 | PT.OTN ---
Current Diagnoses Unilateral primary osteoarthritis, left knee (08/07/20) Physical Therapy Treatment Note PT-OP-A Visit Information Start: 07/05/20 07:34 Freq: Status: Active Protocol: Document 08/07/20 15:15 DCW (Rec: 08/07/20 16:01 DCW [id number]) Out-Patient Physical Therapy Visit Information Visit Information Visit Type Treatment Note Visit Start Time 15:15 Visit Stop Time 16:00 Total Visit Minutes 45 Visit Number 8 Number of JEWELRY BENCH WORKER Visits 0 Evaluation Information Evaluation Date 07/05/20 PT-OP-B Current Condition Start: 07/05/20 07:34 Freq: Status: Active Protocol: Document 07/19/20 15:20 DCW (Rec: 07/19/20 15:45 DCW [id number]) Current Condition History of Current Condition Onset Date 10 years Current Complaints Post-op L TKA History of Current Condition Pt returns to therapy today following L TKA on 07/10/20. Pt reports she is in just as much pain today as I was the day after surgery. Pt performs limited ambulation around her home, basically just between her bed, chair, and bathroom. Pt reports she has been using a CPM machine, and is able to get up to 30 degrees flexion. Pt reports pain is about a 6/10 at rest, but is more like an 8/10 if she moves her leg. Pt is also reporting she has had a temperature this past week, hovering around 99 degrees, which is up from her usual temp of 97.6. Pt has been struggling with mobility secondary to pain. Personal Factors Other Personal Factors That May Effect Pt continues to be very self- Therapy/Recovery restrictive due to pain and, more frequently, fear of pain. PT-OP-C Subjective Start: 07/05/20 07:34 Freq: Status: Active Protocol: Document 08/07/20 15:15 DCW (Rec: 08/07/20 16:01 DCW [id number]) OP-PT Subjective Patient Comments Patient Comments Pt reports she is doing better with pain today, but then admits she took pain pills and Celebrex prior to coming in today. PT-OP-E Functional Tests Start: 07/19/20 15:45 Freq: Status: Active Protocol: Document 07/19/20 15:20 DCW (Rec: 07/19/20 15:59 DCW [id number]) Functional Tests 2 Minute Walk Test Distance 16 Device Used FWW Comments Stopped at 1'12 PT-OP-G Mobility & Gait Start: 07/05/20 07:34 Freq: Status: Active Protocol: Document 07/19/20 15:20 DCW (Rec: 07/19/20 15:59 DCW [id number]) OP Gait Assessment Gait Gait Assistance Required: Minimum Assistance Distance (Feet) 16 Assistive Devices Assistive Device Front Wheeled Walker Gait Deviations General Gait Pattern Antalgic,Decreased Stride Length,Decreased Feet Clearance,Flexed Trunk,Narrow Based Gait,Step-to Gait Factors Limiting Gait Function Factors Limiting Gait Function Decreased Activity Tolerance, Decreased Strength,Limited Range of Motion,Pain,Poor Safety Awareness PT-OP-J Posture/Palpation/Skin Start: 07/05/20 07:34 Freq: Status: Active Protocol: Document 07/19/20 15:20 DCW (Rec: 07/19/20 15:45 DCW [id number]) Skin Assessment Circumference Measurement 3 Location 10 cm inferior to L Joint Line Measurement (Centimeters) 45.1 Comments 10 cm inerior to R Joint Line = 40.1 2 Location 10 cm superior to L Joint Line Measurement (Centimeters) 57.7 Comments 10 cm superior to R Joint Line = 48.0 1 Location L Joint Line Measurement (Centimeters) 50.4 Comments R Joint line = 45.3 PT-OP-K Range of Motion Start: 07/05/20 07:34 Freq: Status: Active Protocol: Document 07/19/20 15:20 DCW (Rec: 07/19/20 15:45 DCW [id number]) Knee Goniometric Range of Motion Knee Left Knee ROM WFL No Patient Position Sitting Flexion Active (degrees) 71 Extension Active (degrees) 15 PT-OP-M Strength Start: 07/05/20 07:34 Freq: Status: Active Protocol: Document 07/19/20 15:20 DCW (Rec: 07/19/20 15:45 DCW [id number]) Hip Strength Hip Manual Muscle Testing Left Flexion (L2) 4- Good- Abduction 3+ Fair+ Knee Strength Knee Manual Muscle Testing Right Flexion (S2) 4 Good Extension (L3) 4 Good Left Flexion (S2) 3- Fair- Extension (L3) 3- Fair- PT-OP-Q Treatments Start: 07/05/20 07:34 Freq: Status: Active Protocol: Document 08/07/20 15:15 DCW (Rec: 08/07/20 16:01 DCW [id number]) Cardio Equipment Recumbent Bicycle Duration (Minutes) 6 Resistance 0 Seat Position 5 Other does not complete full rotations Gym Equipment Shuttle Recovery Bilateral Squats Resistance 50# Shuttle Recovery Platform Stable Therapeutic Exercises Supine Exercises 1 Supine Exercise Name Extension stretch Side left Post-op TKA exercises QS, AP, HS, SAQ, heel dangle Supine Exercise Name SAQ Resistance 1# Standing Exercises TKE Standing Exercise Name TKE Side left Resistance Lv 2 Equipment Used T-band Hip Extension Standing Exercise Name Hip Extension Side left Resistance Lv 2 Equipment Used T-band Gait Training Gait Activity gait with cane Description Bilateral walking sticks Level of Assistance CG to min assist Distance/Duration 10' x6 PT-OP-T Assessment and Plan Start: 07/05/20 07:34 Freq: Status: Active Protocol: Document 08/07/20 15:15 DCW (Rec: 08/07/20 16:01 DCW [id number]) Physical Therapy Assessment Impairments Impairments Activity Tolerance,Balance, Functional Activities, Functional Mobility,Gait, Integument,Pain,Posture,ROM, Soft Tissue Mobility,Strength, Transfers Other Impairments Pt has low pain threshold and limits all ROM, functional activities and MMT. She tends to rely on her for assistance. She has a recent history of HTN, stroke. Pt has history of not getting into the bed and sleeping in recliner and she is getting a passive ROM machine and will have to use it in the bed at home. She has B LE edema and wear knee high compression which may exacerbate edema in the posterior knee. Goals Six Impairment Pt ambulates 16' during 2 MWT Short Term Goal (STG) Pt to ambulate 240' during 2 MWT to show decrease in risk of further functional decline by exhibiting a gait speed >1. 97 ft/sec STG Duration 09/18/20 5 Custodial Goal (LTG) Pt will present with LE functional index score to reflect no more than 30% impairment to allow improved functional I LTG Duration 09/18/20 Four Custodial Goal (LTG) Pt will present with improved left knee AROM to at least 3- 115 deg to improve functional transfers LTG Duration 09/18/20 Three Custodial Goal (LTG) Pt will by able to perform at least 10 reps sit to stand without UE support in 30 sec to improve safety with transfers at home LTG Duration 09/18/20 Two Directional Bore Operator Goal (LTG) Pt will be able to get in and OOB I (on plinth, into supine and back off plinth) with I to improve bed mobility at home LTG Duration 09/18/20 One Short Term Goal (STG) Pt will perform progressive HEP with handouts to improve ROM, flexibility, strength, sit to stands, balance and gait STG Duration 08/18/20 Assessment Summary Assessment Pt continuing to show small ROM improvement, able to tolerate PROM to 90 degrees today. Physical Therapy Plan Frequency and Duration Frequency of Treatment 2x/Week Duration of Treatment 2 months Plan of Care Start Date 07/19/20 Plan of Care End Date 09/18/20 Therapeutic Interventions Therapeutic Interventions Aquatic Therapy,Balance Training,Canalithic Repositioning,Gait Training, Home Exercise Program,Manual Therapy,Neuromuscular Re- education,Patient/Caregiver Education,Self-Care/Home Management,Soft Tissue Mobilization,Taping, Therapeutic Activities, Therapeutic Exercises Modalities Cold Pack/Ice Massage,Electric Stimulation,Hot Packs, Ultrasound Next Visit Focus/Plan Next Note Type Treatment Note Next Visit Plan ROM, Strengthening, gait
--- NOTE | 2020-08-12 16:09 | PT.OTN ---
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 Pt reports she is in just as much pain today as I was the day after surgery. Pt performs limited ambulation around her home, basically just between her bed, chair, and bathroom. Pt reports she has been using a CPM machine, and is able to get up to 30 degrees flexion. Pt reports pain is about a 6/10 at rest, but is more like an 8/10 if she moves her leg. Pt is also reporting she has had a temperature this past week, hovering around 99 degrees, which is up from her usual temp of 97.6. Pt has been struggling with mobility secondary to pain. Personal Factors Other Personal Factors That May Effect Pt continues to be very self- Therapy/Recovery restrictive due to pain and, more frequently, fear of pain. PT-OP-C Subjective Start: 07/05/20 07:34 Freq: Status: Active Protocol: Document 08/12/20 15:15 DCW (Rec: 08/12/20 16:08 DCW [id number]) OP-PT Subjective Patient Comments Patient Comments Pt notes she has overall been having less pain, but then since she has been doing more activity, she has noticed some increased soreness. PT-OP-E Functional Tests Start: 07/19/20 15:45 Freq: Status: Active Protocol: Document 07/19/20 15:20 DCW (Rec: 07/19/20 15:59 DCW [id number]) Functional Tests 2 Minute Walk Test Distance 16 Device Used FWW Comments Stopped at 1'12 PT-OP-G Mobility & Gait Start: 07/05/20 07:34 Freq: Status: Active Protocol: Document 07/19/20 15:20 DCW (Rec: 07/19/20 15:59 DCW [id number]) OP Gait Assessment Gait Gait Assistance Required: Minimum Assistance Distance (Feet) 16 Assistive Devices Assistive Device Front Wheeled Walker Gait Deviations General Gait Pattern Antalgic,Decreased Stride Length,Decreased Feet Clearance,Flexed Trunk,Narrow Based Gait,Step-to Gait Factors Limiting Gait Function Factors Limiting Gait Function Decreased Activity Tolerance, Decreased Strength,Limited Range of Motion,Pain,Poor Safety Awareness PT-OP-J Posture/Palpation/Skin Start: 07/05/20 07:34 Freq: Status: Active Protocol: Document 07/19/20 15:20 DCW (Rec: 07/19/20 15:45 DCW [id number]) Skin Assessment Circumference Measurement 3 Location 10 cm inferior to L Joint Line Measurement (Centimeters) 45.1 Comments 10 cm inerior to R Joint Line = 40.1 2 Location 10 cm superior to L Joint Line Measurement (Centimeters) 57.7 Comments 10 cm superior to R Joint Line = 48.0 1 Location L Joint Line Measurement (Centimeters) 50.4 Comments R Joint line = 45.3 PT-OP-K Range of Motion Start: 07/05/20 07:34 Freq: Status: Active Protocol: Document 07/19/20 15:20 DCW (Rec: 07/19/20 15:45 DCW [id number]) Knee Goniometric Range of Motion Knee Left Knee ROM WFL No Patient Position Sitting Flexion Active (degrees) 71 Extension Active (degrees) 15 PT-OP-M Strength Start: 07/05/20 07:34 Freq: Status: Active Protocol: Document 07/19/20 15:20 DCW (Rec: 07/19/20 15:45 DCW [id number]) Hip Strength Hip Manual Muscle Testing Left Flexion (L2) 4- Good- Abduction 3+ Fair+ Knee Strength Knee Manual Muscle Testing Right Flexion (S2) 4 Good Extension (L3) 4 Good Left Flexion (S2) 3- Fair- Extension (L3) 3- Fair- PT-OP-Q Treatments Start: 07/05/20 07:34 Freq: Status: Active Protocol: Document 08/12/20 15:15 DCW (Rec: 08/12/20 16:08 DCW [id number]) Cardio Equipment Recumbent Bicycle Duration (Minutes) 6 Resistance 0 Seat Position 5 Other full rotations backward x10 Gym Equipment Shuttle Recovery Unilateral Squats Resistance 25# Shuttle Recovery Platform Stable Bilateral Squats Resistance 50# Shuttle Recovery Platform Stable Therapeutic Exercises Supine Exercises 1 Supine Exercise Name Extension stretch Side left Post-op TKA exercises QS, AP, HS, SAQ, heel dangle Supine Exercise Name SAQ, Heel Slides Resistance 2# Therapeutic Activity Therapeutic Activity 1 Name Sit<->Stands Reps/Minutes x5 Comments Lowest setting black table Gait Training Gait Activity gait with cane Description Bilateral walking sticks Level of Assistance CG to min assist Distance/Duration 150' PT-OP-T Assessment and Plan Start: 07/05/20 07:34 Freq: Status: Active Protocol: Document 08/12/20 15:15 DCW (Rec: 08/12/20 16:08 DCW [id number]) Physical Therapy Assessment Impairments Impairments Activity Tolerance,Balance, Functional Activities, Functional Mobility,Gait, Integument,Pain,Posture,ROM, Soft Tissue Mobility,Strength, Transfers Other Impairments Pt has low pain threshold and limits all ROM, functional activities and MMT. She tends to rely on her for assistance. She has a recent history of HTN, stroke. Pt has history of not getting into the bed and sleeping in recliner and she is getting a passive ROM machine and will have to use it in the bed at home. She has B LE edema and wear knee high compression which may exacerbate edema in the posterior knee. Goals Six Impairment Pt ambulates 16' during 2 MWT Short Term Goal (STG) Pt to ambulate 240' during 2 MWT to show decrease in risk of further functional decline by exhibiting a gait speed >1. 97 ft/sec STG Duration 09/18/20 5 Before School Goal (LTG) Pt will present with LE functional index score to reflect no more than 30% impairment to allow improved functional I LTG Duration 09/18/20 Four Retirement Goal (LTG) Pt will present with improved left knee AROM to at least 3- 115 deg to improve functional transfers LTG Duration 09/18/20 Three Before School Goal (LTG) Pt will by able to perform at least 10 reps sit to stand without UE support in 30 sec to improve safety with transfers at home LTG Duration 09/18/20 Two Before School Goal (LTG) Pt will be able to get in and OOB I (on plinth, into supine and back off plinth) with I to improve bed mobility at home LTG Duration 09/18/20 One Short Term Goal (STG) Pt will perform progressive HEP with handouts to improve ROM, flexibility, strength, sit to stands, balance and gait STG Duration 08/18/20 Assessment Summary Assessment Pt able to get full rotation on recumbent bike for first time. Did well with ambulation using 2 walking sticks, but still requires CGA/Min Ax1 for stability. ROM and strength improving. Physical Therapy Plan Frequency and Duration Frequency of Treatment 2x/Week Duration of Treatment 2 months Plan of Care Start Date 07/19/20 Plan of Care End Date 09/18/20 Therapeutic Interventions Therapeutic Interventions Aquatic Therapy,Balance Training,Canalithic Repositioning,Gait Training, Home Exercise Program,Manual Therapy,Neuromuscular Re- education,Patient/Caregiver Education,Self-Care/Home Management,Soft Tissue Mobilization,Taping, Therapeutic Activities, Therapeutic Exercises Modalities Cold Pack/Ice Massage,Electric Stimulation,Hot Packs, Ultrasound Next Visit Focus/Plan Next Note Type Treatment Note Next Visit Plan ROM, Strengthening, gait
--- NOTE | 2020-08-15 16:04 | PT.OTN ---
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 Pt reports she is in just as much pain today as I was the day after surgery. Pt performs limited ambulation around her home, basically just between her bed, chair, and bathroom. Pt reports she has been using a CPM machine, and is able to get up to 30 degrees flexion. Pt reports pain is about a 6/10 at rest, but is more like an 8/10 if she moves her leg. Pt is also reporting she has had a temperature this past week, hovering around 99 degrees, which is up from her usual temp of 97.6. Pt has been struggling with mobility secondary to pain. Personal Factors Other Personal Factors That May Effect Pt continues to be very self- Therapy/Recovery restrictive due to pain and, more frequently, fear of pain. PT-OP-C Subjective Start: 07/05/20 07:34 Freq: Status: Active Protocol: Document 08/15/20 15:15 DCW (Rec: 08/15/20 16:04 DCW [id number]) OP-PT Subjective Patient Comments Patient Comments Pt reports it is now easy to get in and out of the car, and she is happy to report she has independence at home now. PT-OP-E Functional Tests Start: 07/19/20 15:45 Freq: Status: Active Protocol: Document 07/19/20 15:20 DCW (Rec: 07/19/20 15:59 DCW [id number]) Functional Tests 2 Minute Walk Test Distance 16 Device Used FWW Comments Stopped at 1'12 PT-OP-G Mobility & Gait Start: 07/05/20 07:34 Freq: Status: Active Protocol: Document 07/19/20 15:20 DCW (Rec: 07/19/20 15:59 DCW [id number]) OP Gait Assessment Gait Gait Assistance Required: Minimum Assistance Distance (Feet) 16 Assistive Devices Assistive Device Front Wheeled Walker Gait Deviations General Gait Pattern Antalgic,Decreased Stride Length,Decreased Feet Clearance,Flexed Trunk,Narrow Based Gait,Step-to Gait Factors Limiting Gait Function Factors Limiting Gait Function Decreased Activity Tolerance, Decreased Strength,Limited Range of Motion,Pain,Poor Safety Awareness PT-OP-J Posture/Palpation/Skin Start: 07/05/20 07:34 Freq: Status: Active Protocol: Document 07/19/20 15:20 DCW (Rec: 07/19/20 15:45 DCW [id number]) Skin Assessment Circumference Measurement 3 Location 10 cm inferior to L Joint Line Measurement (Centimeters) 45.1 Comments 10 cm inerior to R Joint Line = 40.1 2 Location 10 cm superior to L Joint Line Measurement (Centimeters) 57.7 Comments 10 cm superior to R Joint Line = 48.0 1 Location L Joint Line Measurement (Centimeters) 50.4 Comments R Joint line = 45.3 PT-OP-K Range of Motion Start: 07/05/20 07:34 Freq: Status: Active Protocol: Document 07/19/20 15:20 DCW (Rec: 07/19/20 15:45 DCW [id number]) Knee Goniometric Range of Motion Knee Left Knee ROM WFL No Patient Position Sitting Flexion Active (degrees) 71 Extension Active (degrees) 15 PT-OP-M Strength Start: 07/05/20 07:34 Freq: Status: Active Protocol: Document 07/19/20 15:20 DCW (Rec: 07/19/20 15:45 DCW [id number]) Hip Strength Hip Manual Muscle Testing Left Flexion (L2) 4- Good- Abduction 3+ Fair+ Knee Strength Knee Manual Muscle Testing Right Flexion (S2) 4 Good Extension (L3) 4 Good Left Flexion (S2) 3- Fair- Extension (L3) 3- Fair- PT-OP-Q Treatments Start: 07/05/20 07:34 Freq: Status: Active Protocol: Document 08/15/20 15:15 DCW (Rec: 08/15/20 16:04 DCW [id number]) Cardio Equipment Recumbent Bicycle Duration (Minutes) 6 Resistance 0 Seat Position 5 Other full rotation bkwd multiple times, forward x1 Gym Equipment Shuttle Recovery Unilateral Squats Resistance 37# Shuttle Recovery Platform Stable Bilateral Squats Resistance 75# Shuttle Recovery Platform Stable Therapeutic Exercises Supine Exercises 1 Supine Exercise Name Extension stretch Side left Standing Exercises TKE Standing Exercise Name TKE Side left Resistance Lv 2 Equipment Used T-band step flexion stretch Standing Exercise Name Step stretch Side left Step-ups Standing Exercise Name Step-ups Side left Equipment Used 6 step Manual Therapy Treatment Soft Tissue Mobilization 1 Body Location L knee scar mob PT-OP-T Assessment and Plan Start: 07/05/20 07:34 Freq: Status: Active Protocol: Document 08/15/20 15:15 DCW (Rec: 08/15/20 16:04 DCW [id number]) Physical Therapy Assessment Impairments Impairments Activity Tolerance,Balance, Functional Activities, Functional Mobility,Gait, Integument,Pain,Posture,ROM, Soft Tissue Mobility,Strength, Transfers Other Impairments Pt has low pain threshold and limits all ROM, functional activities and MMT. She tends to rely on her for assistance. She has a recent history of HTN, stroke. Pt has history of not getting into the bed and sleeping in recliner and she is getting a passive ROM machine and will have to use it in the bed at home. She has B LE edema and wear knee high compression which may exacerbate edema in the posterior knee. Goals Six Impairment Pt ambulates 16' during 2 MWT Short Term Goal (STG) Pt to ambulate 240' during 2 MWT to show decrease in risk of further functional decline by exhibiting a gait speed >1. 97 ft/sec STG Duration 09/18/20 5 [employer] Administrator Goal (LTG) Pt will present with LE functional index score to reflect no more than 30% impairment to allow improved functional I LTG Duration 09/18/20 Four [facility] Goal (LTG) Pt will present with improved left knee AROM to at least 3- 115 deg to improve functional transfers LTG Duration 09/18/20 Three [employer] Administrator Goal (LTG) Pt will by able to perform at least 10 reps sit to stand without UE support in 30 sec to improve safety with transfers at home LTG Duration 09/18/20 Two [employer] Administrator Goal (LTG) Pt will be able to get in and OOB I (on plinth, into supine and back off plinth) with I to improve bed mobility at home LTG Duration 09/18/20 One Short Term Goal (STG) Pt will perform progressive HEP with handouts to improve ROM, flexibility, strength, sit to stands, balance and gait STG Duration 08/18/20 Assessment Summary Assessment Pt now able to go forward on recumbent bike, tolerating increased resistance. Physical Therapy Plan Frequency and Duration Frequency of Treatment 2x/Week Duration of Treatment 2 months Plan of Care Start Date 07/19/20 Plan of Care End Date 09/18/20 Therapeutic Interventions Therapeutic Interventions Aquatic Therapy,Balance Training,Canalithic Repositioning,Gait Training, Home Exercise Program,Manual Therapy,Neuromuscular Re- education,Patient/Caregiver Education,Self-Care/Home Management,Soft Tissue Mobilization,Taping, Therapeutic Activities, Therapeutic Exercises Modalities Cold Pack/Ice Massage,Electric Stimulation,Hot Packs, Ultrasound Next Visit Focus/Plan Next Note Type Treatment Note Next Visit Plan ROM, Strengthening, gait
--- NOTE | 2020-08-19 16:03 | PT.OTN ---
Current Diagnoses Unilateral primary osteoarthritis, left knee (08/19/20) Physical Therapy Treatment Note PT-OP-A Visit Information Start: 07/05/20 07:34 Freq: Status: Active Protocol: Document 08/19/20 15:15 DCW (Rec: 08/19/20 16:03 DCW [id number]) Out-Patient Physical Therapy Visit Information Visit Information Visit Type Treatment Note Visit Start Time 15:15 Visit Stop Time 16:00 Total Visit Minutes 45 Visit Number 11 Number of SACK FILLER Visits 0 Evaluation Information Evaluation Date 07/05/20 PT-OP-B Current Condition Start: 07/05/20 07:34 Freq: Status: Active Protocol: Document 07/19/20 15:20 DCW (Rec: 07/19/20 15:45 DCW [id number]) Current Condition History of Current Condition Onset Date 10 years Current Complaints Post-op L TKA History of Current Condition Pt returns to therapy today following L TKA on 07/10/20. Pt reports she is in just as much pain today as I was the day after surgery. Pt performs limited ambulation around her home, basically just between her bed, chair, and bathroom. Pt reports she has been using a CPM machine, and is able to get up to 30 degrees flexion. Pt reports pain is about a 6/10 at rest, but is more like an 8/10 if she moves her leg. Pt is also reporting she has had a temperature this past week, hovering around 99 degrees, which is up from her usual temp of 97.6. Pt has been struggling with mobility secondary to pain. Personal Factors Other Personal Factors That May Effect Pt continues to be very self- Therapy/Recovery restrictive due to pain and, more frequently, fear of pain. PT-OP-C Subjective Start: 07/05/20 07:34 Freq: Status: Active Protocol: Document 08/19/20 15:15 DCW (Rec: 08/19/20 16:03 DCW [id number]) OP-PT Subjective Patient Comments Patient Comments Pt reports she saw her surgeon this morning, and he was pleased with my progress. PT-OP-E Functional Tests Start: 07/19/20 15:45 Freq: Status: Active Protocol: Document 07/19/20 15:20 DCW (Rec: 07/19/20 15:59 DCW [id number]) Functional Tests 2 Minute Walk Test Distance 16 Device Used FWW Comments Stopped at 1'12 PT-OP-G Mobility & Gait Start: 07/05/20 07:34 Freq: Status: Active Protocol: Document 07/19/20 15:20 DCW (Rec: 07/19/20 15:59 DCW [id number]) OP Gait Assessment Gait Gait Assistance Required: Minimum Assistance Distance (Feet) 16 Assistive Devices Assistive Device Front Wheeled Walker Gait Deviations General Gait Pattern Antalgic,Decreased Stride Length,Decreased Feet Clearance,Flexed Trunk,Narrow Based Gait,Step-to Gait Factors Limiting Gait Function Factors Limiting Gait Function Decreased Activity Tolerance, Decreased Strength,Limited Range of Motion,Pain,Poor Safety Awareness PT-OP-J Posture/Palpation/Skin Start: 07/05/20 07:34 Freq: Status: Active Protocol: Document 07/19/20 15:20 DCW (Rec: 07/19/20 15:45 DCW [id number]) Skin Assessment Circumference Measurement 3 Location 10 cm inferior to L Joint Line Measurement (Centimeters) 45.1 Comments 10 cm inerior to R Joint Line = 40.1 2 Location 10 cm superior to L Joint Line Measurement (Centimeters) 57.7 Comments 10 cm superior to R Joint Line = 48.0 1 Location L Joint Line Measurement (Centimeters) 50.4 Comments R Joint line = 45.3 PT-OP-K Range of Motion Start: 07/05/20 07:34 Freq: Status: Active Protocol: Document 07/19/20 15:20 DCW (Rec: 07/19/20 15:45 DCW [id number]) Knee Goniometric Range of Motion Knee Left Knee ROM WFL No Patient Position Sitting Flexion Active (degrees) 71 Extension Active (degrees) 15 PT-OP-M Strength Start: 07/05/20 07:34 Freq: Status: Active Protocol: Document 07/19/20 15:20 DCW (Rec: 07/19/20 15:45 DCW [id number]) Hip Strength Hip Manual Muscle Testing Left Flexion (L2) 4- Good- Abduction 3+ Fair+ Knee Strength Knee Manual Muscle Testing Right Flexion (S2) 4 Good Extension (L3) 4 Good Left Flexion (S2) 3- Fair- Extension (L3) 3- Fair- PT-OP-Q Treatments Start: 07/05/20 07:34 Freq: Status: Active Protocol: Document 08/19/20 15:15 DCW (Rec: 08/19/20 16:03 DCW [id number]) Cardio Equipment Recumbent Bicycle Duration (Minutes) 6 Resistance 0 Seat Position 5 Other full rotation forward x4 Gym Equipment Shuttle Recovery Unilateral Squats Resistance 37# Shuttle Recovery Platform Stable Bilateral Squats Resistance 75# Shuttle Recovery Platform Stable Therapeutic Exercises Standing Exercises sidestepping Resistance Yellow Equipment Used T-band Reps/Minutes 20 ft Comments @ rail Hip Extension Standing Exercise Name Hip Extension Side bilateral Resistance Yellow Equipment Used T-band Gait Training Gait Activity gait with cane Description Bilateral walking sticks Level of Assistance CG to min assist Distance/Duration 90' Manual Therapy Treatment Soft Tissue Mobilization 1 Body Location L knee scar mob PT-OP-T Assessment and Plan Start: 07/05/20 07:34 Freq: Status: Active Protocol: Document 08/19/20 15:15 DCW (Rec: 08/19/20 16:03 DCW [id number]) Physical Therapy Assessment Impairments Impairments Activity Tolerance,Balance, Functional Activities, Functional Mobility,Gait, Integument,Pain,Posture,ROM, Soft Tissue Mobility,Strength, Transfers Other Impairments Pt has low pain threshold and limits all ROM, functional activities and MMT. She tends to rely on her for assistance. She has a recent history of HTN, stroke. Pt has history of not getting into the bed and sleeping in recliner and she is getting a passive ROM machine and will have to use it in the bed at home. She has B LE edema and wear knee high compression which may exacerbate edema in the posterior knee. Goals Six Impairment Pt ambulates 16' during 2 MWT Short Term Goal (STG) Pt to ambulate 240' during 2 MWT to show decrease in risk of further functional decline by exhibiting a gait speed >1. 97 ft/sec STG Duration 09/18/20 5 [facility] Goal (LTG) Pt will present with LE functional index score to reflect no more than 30% impairment to allow improved functional I LTG Duration 09/18/20 Four [facility] Nurse Goal (LTG) Pt will present with improved left knee AROM to at least 3- 115 deg to improve functional transfers LTG Duration 09/18/20 Three [facility] Goal (LTG) Pt will by able to perform at least 10 reps sit to stand without UE support in 30 sec to improve safety with transfers at home LTG Duration 09/18/20 Two Heart Nurse Goal (LTG) Pt will be able to get in and OOB I (on plinth, into supine and back off plinth) with I to improve bed mobility at home LTG Duration 09/18/20 One Short Term Goal (STG) Pt will perform progressive HEP with handouts to improve ROM, flexibility, strength, sit to stands, balance and gait STG Duration 08/18/20 Assessment Summary Assessment Pt still not very stable using walking sticks, but gait is improving on FWW and pt is experiencing less pain with an increase in activity. Physical Therapy Plan Frequency and Duration Frequency of Treatment 2x/Week Duration of Treatment 2 months Plan of Care Start Date 07/19/20 Plan of Care End Date 09/18/20 Therapeutic Interventions Therapeutic Interventions Aquatic Therapy,Balance Training,Canalithic Repositioning,Gait Training, Home Exercise Program,Manual Therapy,Neuromuscular Re- education,Patient/Caregiver Education,Self-Care/Home Management,Soft Tissue Mobilization,Taping, Therapeutic Activities, Therapeutic Exercises Modalities Cold Pack/Ice Massage,Electric Stimulation,Hot Packs, Ultrasound Next Visit Focus/Plan Next Note Type Treatment Note Next Visit Plan ROM, Strengthening, gait
--- NOTE | 2020-08-22 16:05 | PT.OTN ---
Current Diagnoses Unilateral primary osteoarthritis, left knee (08/22/20) Physical Therapy Treatment Note PT-OP-A Visit Information Start: 07/05/20 07:34 Freq: Status: Active Protocol: Document 08/22/20 15:15 DCW (Rec: 08/22/20 16:04 DCW [id number]) Out-Patient Physical Therapy Visit Information Visit Information Visit Type Treatment Note Visit Start Time 15:15 Visit Stop Time 16:00 Total Visit Minutes 45 Visit Number 12 Number of MACHINE DEICER ELEMENT WINDER Visits 0 Evaluation Information Evaluation Date 07/05/20 PT-OP-B Current Condition Start: 07/05/20 07:34 Freq: Status: Active Protocol: Document 07/19/20 15:20 DCW (Rec: 07/19/20 15:45 DCW [id number]) Current Condition History of Current Condition Onset Date 10 years Current Complaints Post-op L TKA History of Current Condition Pt returns to therapy today following L TKA on 07/10/20. Pt reports she is in just as much pain today as I was the day after surgery. Pt performs limited ambulation around her home, basically just between her bed, chair, and bathroom. Pt reports she has been using a CPM machine, and is able to get up to 30 degrees flexion. Pt reports pain is about a 6/10 at rest, but is more like an 8/10 if she moves her leg. Pt is also reporting she has had a temperature this past week, hovering around 99 degrees, which is up from her usual temp of 97.6. Pt has been struggling with mobility secondary to pain. Personal Factors Other Personal Factors That May Effect Pt continues to be very self- Therapy/Recovery restrictive due to pain and, more frequently, fear of pain. PT-OP-C Subjective Start: 07/05/20 07:34 Freq: Status: Active Protocol: Document 08/22/20 15:15 DCW (Rec: 08/22/20 16:04 DCW [id number]) OP-PT Subjective Patient Comments Patient Comments Pt reports she is doing pretty well, but she has taken Celebrex, 2 tylenol, and a dilaudid PT-OP-E Functional Tests Start: 07/19/20 15:45 Freq: Status: Active Protocol: Document 07/19/20 15:20 DCW (Rec: 09/11/20 15:59 DCW [id number]) Functional Tests 2 Minute Walk Test Distance 16 Device Used FWW Comments Stopped at 1'12 PT-OP-G Mobility & Gait Start: 07/05/20 07:34 Freq: Status: Active Protocol: Document 07/19/20 15:20 DCW (Rec: 07/19/20 15:59 DCW [id number]) OP Gait Assessment Gait Gait Assistance Required: Minimum Assistance Distance (Feet) 16 Assistive Devices Assistive Device Front Wheeled Walker Gait Deviations General Gait Pattern Antalgic,Decreased Stride Length,Decreased Feet Clearance,Flexed Trunk,Narrow Based Gait,Step-to Gait Factors Limiting Gait Function Factors Limiting Gait Function Decreased Activity Tolerance, Decreased Strength,Limited Range of Motion,Pain,Poor Safety Awareness PT-OP-J Posture/Palpation/Skin Start: 07/05/20 07:34 Freq: Status: Active Protocol: Document 07/19/20 15:20 DCW (Rec: 07/19/20 15:45 DCW [id number]) Skin Assessment Circumference Measurement 3 Location 10 cm inferior to L Joint Line Measurement (Centimeters) 45.1 Comments 10 cm inerior to R Joint Line = 40.1 2 Location 10 cm superior to L Joint Line Measurement (Centimeters) 57.7 Comments 10 cm superior to R Joint Line = 48.0 1 Location L Joint Line Measurement (Centimeters) 50.4 Comments R Joint line = 45.3 PT-OP-K Range of Motion Start: 07/05/20 07:34 Freq: Status: Active Protocol: Document 07/19/20 15:20 DCW (Rec: 07/19/20 15:45 DCW [id number]) Knee Goniometric Range of Motion Knee Left Knee ROM WFL No Patient Position Sitting Flexion Active (degrees) 71 Extension Active (degrees) 15 PT-OP-M Strength Start: 07/05/20 07:34 Freq: Status: Active Protocol: Document 07/19/20 15:20 DCW (Rec: 07/19/20 15:45 DCW [id number]) Hip Strength Hip Manual Muscle Testing Left Flexion (L2) 4- Good- Abduction 3+ Fair+ Knee Strength Knee Manual Muscle Testing Right Flexion (S2) 4 Good Extension (L3) 4 Good Left Flexion (S2) 3- Fair- Extension (L3) 3- Fair- PT-OP-Q Treatments Start: 07/05/20 07:34 Freq: Status: Active Protocol: Document 08/22/20 15:15 DCW (Rec: 08/22/20 16:04 DCW [id number]) Cardio Equipment Recumbent Bicycle Duration (Minutes) 6 Resistance 0 Seat Position 5 Other multiple full rotation forward Gym Equipment Shuttle Recovery Unilateral Squats Resistance 37# Shuttle Recovery Platform Stable Bilateral Squats Resistance 75# Shuttle Recovery Platform Stable Therapeutic Exercises Standing Exercises TKE Standing Exercise Name TKE Side left Resistance Lv 2 Equipment Used T-band step flexion stretch Standing Exercise Name Step stretch Side left sidestepping Resistance Yellow Equipment Used T-band Reps/Minutes 20 ft Comments @ rail Step-ups Standing Exercise Name Step-ups Side left Equipment Used 6 step Hip Extension Standing Exercise Name Hip Extension Side bilateral Resistance Yellow Equipment Used T-band Gait Training Gait Activity gait with cane Description Bilateral walking sticks Level of Assistance CG to min assist Distance/Duration 170' Manual Therapy Treatment Soft Tissue Mobilization 1 Body Location L knee scar mob PT-OP-T Assessment and Plan Start: 07/05/20 07:34 Freq: Status: Active Protocol: Document 08/22/20 15:15 DCW (Rec: 08/22/20 16:04 DCW [id number]) Physical Therapy Assessment Impairments Impairments Activity Tolerance,Balance, Functional Activities, Functional Mobility,Gait, Integument,Pain,Posture,ROM, Soft Tissue Mobility,Strength, Transfers Other Impairments Pt has low pain threshold and limits all ROM, functional activities and MMT. She tends to rely on her for assistance. She has a recent history of HTN, stroke. Pt has history of not getting into the bed and sleeping in recliner and she is getting a passive ROM machine and will have to use it in the bed at home. She has B LE edema and wear knee high compression which may exacerbate edema in the posterior knee. Goals Six Impairment Pt ambulates 16' during 2 MWT Short Term Goal (STG) Pt to ambulate 240' during 2 MWT to show decrease in risk of further functional decline by exhibiting a gait speed >1. 97 ft/sec STG Duration 09/18/20 5 [facility] Goal (LTG) Pt will present with LE functional index score to reflect no more than 30% impairment to allow improved functional I LTG Duration 09/18/20 Four [employer] Consultant Goal (LTG) Pt will present with improved left knee AROM to at least 3- 115 deg to improve functional transfers LTG Duration 09/18/20 Three [facility] Goal (LTG) Pt will by able to perform at least 10 reps sit to stand without UE support in 30 sec to improve safety with transfers at home LTG Duration 09/18/20 Two [facility] Goal (LTG) Pt will be able to get in and OOB I (on plinth, into supine and back off plinth) with I to improve bed mobility at home LTG Duration 09/18/20 One Short Term Goal (STG) Pt will perform progressive HEP with handouts to improve ROM, flexibility, strength, sit to stands, balance and gait STG Duration 08/18/20 Assessment Summary Assessment Amb with walking sticks improved today, although still not stable for long periods of time. Incision looking very good, minimal remaining adhesions. Physical Therapy Plan Frequency and Duration Frequency of Treatment 2x/Week Duration of Treatment 2 months Plan of Care Start Date 07/19/20 Plan of Care End Date 09/18/20 Therapeutic Interventions Therapeutic Interventions Aquatic Therapy,Balance Training,Canalithic Repositioning,Gait Training, Home Exercise Program,Manual Therapy,Neuromuscular Re- education,Patient/Caregiver Education,Self-Care/Home Management,Soft Tissue Mobilization,Taping, Therapeutic Activities, Therapeutic Exercises Modalities Cold Pack/Ice Massage,Electric Stimulation,Hot Packs, Ultrasound Next Visit Focus/Plan Next Note Type Treatment Note Next Visit Plan ROM, Strengthening, gait
--- NOTE | 2020-08-28 14:09 | PT.OTN ---
Current Diagnoses Unilateral primary osteoarthritis, left knee (08/28/20) Physical Therapy Treatment Note PT-OP-A Visit Information Start: 07/05/20 07:34 Freq: Status: Active Protocol: Document 08/28/20 13:00 MB (Rec: 08/28/20 13:54 MB [id number]) Out-Patient Physical Therapy Visit Information Visit Information Visit Type Progress Note Visit Start Time 13:00 Visit Stop Time 13:45 Total Visit Minutes 45 Visit Number 13 PT-OP-B Current Condition Start: 07/05/20 07:34 Freq: Status: Active Protocol: Document 07/19/20 15:20 DCW (Rec: 07/19/20 15:45 DCW [id number]) Current Condition History of Current Condition Onset Date 10 years Current Complaints Post-op L TKA History of Current Condition Pt returns to therapy today following L TKA on 07/10/20. Pt reports she is in just as much pain today as I was the day after surgery. Pt performs limited ambulation around her home, basically just between her bed, chair, and bathroom. Pt reports she has been using a CPM machine, and is able to get up to 30 degrees flexion. Pt reports pain is about a 6/10 at rest, but is more like an 8/10 if she moves her leg. Pt is also reporting she has had a temperature this past week, hovering around 99 degrees, which is up from her usual temp of 97.6. Pt has been struggling with mobility secondary to pain. Personal Factors Other Personal Factors That May Effect Pt continues to be very self- Therapy/Recovery restrictive due to pain and, more frequently, fear of pain. PT-OP-C Subjective Start: 07/05/20 07:34 Freq: Status: Active Protocol: Document 08/28/20 13:00 MB (Rec: 08/28/20 13:54 MB [id number]) OP-PT Subjective Patient Comments Patient Comments Today, I did take Celebrex because I am having trouble with my back and it helps my knee as week. Pt is taking dilaudid when she comes to PT up to 1-2x/day. She did not take it today. Patient Reported Progress Improving Patient Questionnaires Lower Extremity Functional Scale LEFS Score 27, 66.25% LEFS Impairment 60 to 79% Impaired (Score 17- 31) PT-OP-E Functional Tests Start: 07/19/20 15:45 Freq: Status: Active Protocol: Document 07/19/20 15:20 DCW (Rec: 07/19/20 15:59 DCW [id number]) Functional Tests 2 Minute Walk Test Distance 16 Device Used FWW Comments Stopped at 1'12 PT-OP-G Mobility & Gait Start: 07/05/20 07:34 Freq: Status: Active Protocol: Document 07/19/20 15:20 DCW (Rec: 07/19/20 15:59 DCW [id number]) OP Gait Assessment Gait Gait Assistance Required: Minimum Assistance Distance (Feet) 16 Assistive Devices Assistive Device Front Wheeled Walker Gait Deviations General Gait Pattern Antalgic,Decreased Stride Length,Decreased Feet Clearance,Flexed Trunk,Narrow Based Gait,Step-to Gait Factors Limiting Gait Function Factors Limiting Gait Function Decreased Activity Tolerance, Decreased Strength,Limited Range of Motion,Pain,Poor Safety Awareness PT-OP-J Posture/Palpation/Skin Start: 07/05/20 07:34 Freq: Status: Active Protocol: Document 07/19/20 15:20 DCW (Rec: 07/19/20 15:45 DCW [id number]) Skin Assessment Circumference Measurement 3 Location 10 cm inferior to L Joint Line Measurement (Centimeters) 45.1 Comments 10 cm inerior to R Joint Line = 40.1 2 Location 10 cm superior to L Joint Line Measurement (Centimeters) 57.7 Comments 10 cm superior to R Joint Line = 48.0 1 Location L Joint Line Measurement (Centimeters) 50.4 Comments R Joint line = 45.3 PT-OP-K Range of Motion Start: 07/05/20 07:34 Freq: Status: Active Protocol: Document 07/19/20 15:20 DCW (Rec: 07/19/20 15:45 DCW [id number]) Knee Goniometric Range of Motion Knee Left Knee ROM WFL No Patient Position Sitting Flexion Active (degrees) 71 Extension Active (degrees) 15 PT-OP-M Strength Start: 07/05/20 07:34 Freq: Status: Active Protocol: Document 07/19/20 15:20 DCW (Rec: 07/19/20 15:45 DCW [id number]) Hip Strength Hip Manual Muscle Testing Left Flexion (L2) 4- Good- Abduction 3+ Fair+ Knee Strength Knee Manual Muscle Testing Right Flexion (S2) 4 Good Extension (L3) 4 Good Left Flexion (S2) 3- Fair- Extension (L3) 3- Fair- PT-OP-Q Treatments Start: 07/05/20 07:34 Freq: Status: Active Protocol: Document 08/28/20 13:00 MB (Rec: 08/28/20 13:54 MB [id number]) Cardio Equipment Recumbent Bicycle Duration (Minutes) 15 Resistance 0 Seat Position 7 Other Cues to con't revolutions Therapeutic Exercises Supine Exercises Post-op TKA exercises QS, AP, HS, SAQ, heel dangle Side left Comments HS x5 for ROM measurement Sitting Exercises Sit to stands Comments Self-limiting behavior, will not try without UE support, 4 reps 30 sec Therapeutic Activity Therapeutic Activity Bed mobility Comments Cues for log rolling, how to get in and out of bed with side lying to the left, lifting foot. Pt does not listen to any of PT cues, states she cannot do it but then does it without assist Gait Training Gait Activity 6MWT Device Used RW Level of Assistance Superv Distance/Duration 6 minutes, 563 feet Comments Cues for increased left knee flexion, heel strike and to con't gait when she wants to stop (she denies pain and light-headedness when asking to stop) Multiple other gait trials during PT PT-OP-T Assessment and Plan Start: 07/05/20 07:34 Freq: Status: Active Protocol: Document 08/28/20 13:00 MB (Rec: 08/28/20 13:54 MB [id number]) Physical Therapy Assessment Rehab Potential Rehabilitation Potential Fair Evaluation Complexity Number of Personal Factors/Comorbidities 1-2 Number of Body Systems Impaired 3 Clinical Presentation at Evaluation Stable Impairments Impairments Activity Tolerance,Balance, Functional Activities, Functional Mobility,Gait, Integument,Pain,Posture,ROM, Soft Tissue Mobility,Strength, Transfers Other Impairments Personal factors include self- limiting behavior, ongoing use of opioids, assists pt for all tasks despite her demonstrating ability to perform transfers and bed mobility without assist today, obesity. Body systems affected include neuromuscular , musculoskeletal and psychosocial. Her functional presentation is stable to evolving. Goals Six Impairment 6MWT Short Term Goal (STG) Pt will gait train at least 1000 feet in 6 minutes with LRAD to improve community ambulation by 11/06/2020. 08/28/2020: Pt gait trains 563 feet in 6 minutes STG Duration 11/06/2020 5 Shelter Goal (LTG) Pt will present with LE functional index score to reflect no more than 30% impairment to allow improved functional I by 11/06/2020. 08/28/2020: LEF score is 66.25 % LTG Duration 11/06/2020 Four Health Technical Writer Goal (LTG) Pt will present with improved left knee AROM to at least 3- 115 deg to improve functional transfers by 11/06/2020. 08/28/2020: AROM left knee 5- 100 deg today. LTG Duration 11/06/2020 Three Health Technical Writer Goal (LTG) Pt will by able to perform at least 10 reps sit to stand with UE support in 30 sec to improve safety with transfers at home by 11/06/2020. 08/28/2020: Pt cannot perform without UE support (self-limit /does not make good effort). 4 reps and pt stops, self- limits LTG Duration 11/06/2020 Two Health Technical Writer Goal (LTG) Pt will be able to get in and OOB I (on plinth, into supine and back off plinth) with I to improve bed mobility at home 08/28/2020: Goal met, though pt states that she cannot do it and requires encouragement. LTG Duration 09/18/20--MET One Short Term Goal (STG) Pt will perform progressive HEP with handouts to improve ROM, flexibility, strength, sit to stands, balance and gait. 08/28/2020: Review HEP with primary therapist next treatment date STG Duration 11/06/2020 Progress Towards Goals Progress Towards Goals Progressing Toward Goals,Slow Progress due to Activity Tolerance,Slow Progress due to Noncompliance Assessment Summary Assessment Pt has progressed towards all PT goals since starting PT. These include gait, ROM, sit to stands, performance of HEP and LEF goals. She has met her bed mobility goal. Her LEF score could be higher but pt reports that her helps her do everything. She con't with self-limiting behavior, stating that she cannot do tasks without trying. When PT encourages pt to try, she is able to perform sit to stands, longer time on the recumbent bike and get herself on and off the plinth without assist. She will benefit from ongoing PT to further improve gait, range, functional strength and balance. Her participation will be the biggest factor determining success. Physical Therapy Plan Frequency and Duration Frequency of Treatment 2x/Week Duration of Treatment 8 weeks Plan of Care Start Date 08/28/20 Plan of Care End Date 11/06/20 Therapeutic Interventions Therapeutic Interventions Aquatic Therapy,Balance Training,Canalithic Repositioning,Gait Training, Home Exercise Program,Manual Therapy,Neuromuscular Re- education,Patient/Caregiver Education,Self-Care/Home Management,Soft Tissue Mobilization,Taping, Therapeutic Activities, Therapeutic Exercises Modalities Cold Pack/Ice Massage,Electric Stimulation,Hot Packs, Ultrasound Next Visit Focus/Plan Next Note Type Treatment Note Next Visit Plan Keep encouraging pt to perform tasks without assist-- adjusting bike seat, putting her own feet on the pedals, getting on and off plinth without asst. Review HEP, add sit to stands with UE support, keep working on 6MWT, balance
--- NOTE | 2020-08-28 14:10 | PT.OPPOC ---
Physical, Occupational & Speech Therapy At [facility] Current Diagnoses Unilateral primary osteoarthritis, left knee (08/28/20) Visit Care Team Role Provider Type Noah Jorgensen MD Primary Care Provider Physician Specialty: Internal Medicine Address: [address] [place] [address], [address], [place], [address] Email: [email or web address] Kain Bronson MD Attending Provider Physician Referring Provider Specialty: Orthopedic Surgery Address: [address] [place] [address], [id number] Email: [email or web address] Plan Of Care PT-OP-T Assessment and Plan Start: 07/05/20 07:34 Freq: Status: Active Protocol: Document 08/28/20 13:00 MB (Rec: 08/28/20 13:54 MB [id number]) Physical Therapy Assessment Rehab Potential Rehabilitation Potential Fair Evaluation Complexity Number of Personal Factors/Comorbidities 1-2 Number of Body Systems Impaired 3 Clinical Presentation at Evaluation Stable Impairments Impairments Activity Tolerance,Balance, Functional Activities, Functional Mobility,Gait, Integument,Pain,Posture,ROM, Soft Tissue Mobility,Strength, Transfers Other Impairments Personal factors include self- limiting behavior, ongoing use of opioids, assists pt for all tasks despite her demonstrating ability to perform transfers and bed mobility without assist today, obesity. Body systems affected include neuromuscular , musculoskeletal and psychosocial. Her functional presentation is stable to evolving. Goals Six Impairment 6MWT Short Term Goal (STG) Pt will gait train at least 1000 feet in 6 minutes with LRAD to improve community ambulation by 11/06/2020. 08/28/2020: Pt gait trains 563 feet in 6 minutes STG Duration 11/06/2020 5 Custodial Goal (LTG) Pt will present with LE functional index score to reflect no more than 30% impairment to allow improved functional I by 11/06/2020. 08/28/2020: LEF score is 66.25 % LTG Duration 11/06/2020 Four Blueprint Machine Operator Goal (LTG) Pt will present with improved left knee AROM to at least 3- 115 deg to improve functional transfers by 11/06/2020. 08/28/2020: AROM left knee 5- 100 deg today. LTG Duration 11/06/2020 Three Blueprint Machine Operator Goal (LTG) Pt will by able to perform at least 10 reps sit to stand with UE support in 30 sec to improve safety with transfers at home by 11/06/2020. 08/28/2020: Pt cannot perform without UE support (self-limit /does not make good effort). 4 reps and pt stops, self- limits LTG Duration 11/06/2020 Two Blueprint Machine Operator Goal (LTG) Pt will be able to get in and OOB I (on plinth, into supine and back off plinth) with I to improve bed mobility at home 08/28/2020: Goal met, though pt states that she cannot do it and requires encouragement. LTG Duration 09/18/20--MET One Short Term Goal (STG) Pt will perform progressive HEP with handouts to improve ROM, flexibility, strength, sit to stands, balance and gait. 08/28/2020: Review HEP with primary therapist next treatment date STG Duration 11/06/2020 Progress Towards Goals Progress Towards Goals Progressing Toward Goals,Slow Progress due to Activity Tolerance,Slow Progress due to Noncompliance Assessment Summary Assessment Pt has progressed towards all PT goals since starting PT. These include gait, ROM, sit to stands, performance of HEP and LEF goals. She has met her bed mobility goal. Her LEF score could be higher but pt reports that her helps her do everything. She con't with self-limiting behavior, stating that she cannot do tasks without trying. When PT encourages pt to try, she is able to perform sit to stands, longer time on the recumbent bike and get herself on and off the plinth without assist. She will benefit from ongoing PT to further improve gait, range, functional strength and balance. Her participation will be the biggest factor determining success. Physical Therapy Plan Frequency and Duration Frequency of Treatment 2x/Week Duration of Treatment 8 weeks Plan of Care Start Date 08/28/20 Plan of Care End Date 11/06/20 Therapeutic Interventions Therapeutic Interventions Aquatic Therapy,Balance Training,Canalithic Repositioning,Gait Training, Home Exercise Program,Manual Therapy,Neuromuscular Re- education,Patient/Caregiver Education,Self-Care/Home Management,Soft Tissue Mobilization,Taping, Therapeutic Activities, Therapeutic Exercises Modalities Cold Pack/Ice Massage,Electric Stimulation,Hot Packs, Ultrasound Next Visit Focus/Plan Next Note Type Treatment Note Next Visit Plan Keep encouraging pt to perform tasks without assist-- adjusting bike seat, putting her own feet on the pedals, getting on and off plinth without asst. Review HEP, add sit to stands with UE support, keep working on 6MWT, balance Plan of Care Dates Plan of Care Start Date 08/28/20 Plan of Care End Date 11/06/20 Electronically Signed by: Olivia Foley, PT 08/28/20 3083 Please Sign and Return: I have reviewed this Plan of Care and certify that the skilled therapy services above are required to meet the patient?s needs. Physician Signature Date Printed Name and Credentials Clinical Instructor Signature Printed Name and Credentials
--- NOTE | 2020-09-02 16:03 | PT.OTN ---
Current Diagnoses Unilateral primary osteoarthritis, left knee (09/02/20) Physical Therapy Treatment Note PT-OP-A Visit Information Start: 07/05/20 07:34 Freq: Status: Active Protocol: Document 09/02/20 15:15 DCW (Rec: 09/02/20 16:02 DCW [id number]) Out-Patient Physical Therapy Visit Information Visit Information Visit Type Treatment Note Visit Start Time 15:15 Visit Stop Time 16:00 Total Visit Minutes 45 Visit Number 14 Number of STEEL CRANE OPERATOR Visits 0 Evaluation Information Evaluation Date 07/05/20 PT-OP-B Current Condition Start: 07/05/20 07:34 Freq: Status: Active Protocol: Document 07/19/20 15:20 DCW (Rec: 07/19/20 15:45 DCW [id number]) Current Condition History of Current Condition Onset Date 10 years Current Complaints Post-op L TKA History of Current Condition Pt returns to therapy today following L TKA on 07/10/20. Pt reports she is in just as much pain today as I was the day after surgery. Pt performs limited ambulation around her home, basically just between her bed, chair, and bathroom. Pt reports she has been using a CPM machine, and is able to get up to 30 degrees flexion. Pt reports pain is about a 6/10 at rest, but is more like an 8/10 if she moves her leg. Pt is also reporting she has had a temperature this past week, hovering around 99 degrees, which is up from her usual temp of 97.6. Pt has been struggling with mobility secondary to pain. Personal Factors Other Personal Factors That May Effect Pt continues to be very self- Therapy/Recovery restrictive due to pain and, more frequently, fear of pain. PT-OP-C Subjective Start: 07/05/20 07:34 Freq: Status: Active Protocol: Document 09/02/20 15:15 DCW (Rec: 09/02/20 16:02 DCW [id number]) OP-PT Subjective Patient Comments Patient Comments I know I need to get my hip stronger, so I'm not going to complain today if you make me do hip stuff. PT-OP-E Functional Tests Start: 07/19/20 15:45 Freq: Status: Active Protocol: Document 07/19/20 15:20 DCW (Rec: 07/19/20 15:59 DCW [id number]) Functional Tests 2 Minute Walk Test Distance 16 Device Used FWW Comments Stopped at 1'12 PT-OP-G Mobility & Gait Start: 07/05/20 07:34 Freq: Status: Active Protocol: Document 07/19/20 15:20 DCW (Rec: 07/19/20 15:59 DCW [id number]) OP Gait Assessment Gait Gait Assistance Required: Minimum Assistance Distance (Feet) 16 Assistive Devices Assistive Device Front Wheeled Walker Gait Deviations General Gait Pattern Antalgic,Decreased Stride Length,Decreased Feet Clearance,Flexed Trunk,Narrow Based Gait,Step-to Gait Factors Limiting Gait Function Factors Limiting Gait Function Decreased Activity Tolerance, Decreased Strength,Limited Range of Motion,Pain,Poor Safety Awareness PT-OP-J Posture/Palpation/Skin Start: 07/05/20 07:34 Freq: Status: Active Protocol: Document 07/19/20 15:20 DCW (Rec: 07/19/20 15:45 DCW [id number]) Skin Assessment Circumference Measurement 3 Location 10 cm inferior to L Joint Line Measurement (Centimeters) 45.1 Comments 10 cm inerior to R Joint Line = 40.1 2 Location 10 cm superior to L Joint Line Measurement (Centimeters) 57.7 Comments 10 cm superior to R Joint Line = 48.0 1 Location L Joint Line Measurement (Centimeters) 50.4 Comments R Joint line = 45.3 PT-OP-K Range of Motion Start: 07/05/20 07:34 Freq: Status: Active Protocol: Document 07/19/20 15:20 DCW (Rec: 07/19/20 15:45 DCW [id number]) Knee Goniometric Range of Motion Knee Left Knee ROM WFL No Patient Position Sitting Flexion Active (degrees) 71 Extension Active (degrees) 15 PT-OP-M Strength Start: 07/05/20 07:34 Freq: Status: Active Protocol: Document 07/19/20 15:20 DCW (Rec: 07/19/20 15:45 DCW [id number]) Hip Strength Hip Manual Muscle Testing Left Flexion (L2) 4- Good- Abduction 3+ Fair+ Knee Strength Knee Manual Muscle Testing Right Flexion (S2) 4 Good Extension (L3) 4 Good Left Flexion (S2) 3- Fair- Extension (L3) 3- Fair- PT-OP-Q Treatments Start: 08/28/20 07:34 Freq: Status: Active Protocol: Document 09/02/20 15:15 DCW (Rec: 09/02/20 16:02 DCW [id number]) Cardio Equipment Recumbent Bicycle Duration (Minutes) 6 Resistance 0 Seat Position 7 Treadmill Duration (Minutes) 2 Speed 0.5->0.8 Incline 0 Therapeutic Exercises Standing Exercises step flexion stretch Standing Exercise Name Step stretch Side left sidestepping Resistance Yellow Equipment Used T-band Reps/Minutes 20 ft Comments @ rail marching Standing Exercise Name Toe-taps Side bilateral Resistance 4# Equipment Used 6 step Step-ups Standing Exercise Name Step-ups Side left Equipment Used 6 step Hip Extension Standing Exercise Name Hip Extension Side bilateral Resistance Yellow Equipment Used T-band Manual Therapy Treatment Soft Tissue Mobilization 1 Body Location L knee scar mob PT-OP-T Assessment and Plan Start: 07/05/20 07:34 Freq: Status: Active Protocol: Document 09/02/20 15:15 DCW (Rec: 09/02/20 16:02 DCW [id number]) Physical Therapy Assessment Impairments Impairments Activity Tolerance,Balance, Functional Activities, Functional Mobility,Gait, Integument,Pain,Posture,ROM, Soft Tissue Mobility,Strength, Transfers Other Impairments Personal factors include self- limiting behavior, ongoing use of opioids, assists pt for all tasks despite her demonstrating ability to perform transfers and bed mobility without assist today, obesity. Body systems affected include neuromuscular , musculoskeletal and psychosocial. Her functional presentation is stable to evolving. Goals Six Impairment 6MWT Short Term Goal (STG) Pt will gait train at least 1000 feet in 6 minutes with LRAD to improve community ambulation by 11/06/2020. 08/28/2020: Pt gait trains 563 feet in 6 minutes STG Duration 11/06/2020 5 Vice President Of Customer Service Goal (LTG) Pt will present with LE functional index score to reflect no more than 30% impairment to allow improved functional I by 11/06/2020. 08/28/2020: LEF score is 66.25 % LTG Duration 11/06/2020 Four Vice President Of Customer Service Goal (LTG) Pt will present with improved left knee AROM to at least 3- 115 deg to improve functional transfers by 11/06/2020. 08/28/2020: AROM left knee 5- 100 deg today. LTG Duration 11/06/2020 Three Chcf Goal (LTG) Pt will by able to perform at least 10 reps sit to stand with UE support in 30 sec to improve safety with transfers at home by 11/06/2020. 08/28/2020: Pt cannot perform without UE support (self-limit /does not make good effort). 4 reps and pt stops, self- limits LTG Duration 11/06/2020 Two Chcf Goal (LTG) Pt will be able to get in and OOB I (on plinth, into supine and back off plinth) with I to improve bed mobility at home 08/28/2020: Goal met, though pt states that she cannot do it and requires encouragement. LTG Duration 09/18/20--MET One Short Term Goal (STG) Pt will perform progressive HEP with handouts to improve ROM, flexibility, strength, sit to stands, balance and gait. 08/28/2020: Review HEP with primary therapist next treatment date STG Duration 11/06/2020 Assessment Summary Assessment Pt continues to progress, ROM improving and not using w/c at all now. Physical Therapy Plan Frequency and Duration Frequency of Treatment 2x/Week Duration of Treatment 8 weeks Plan of Care Start Date 08/28/20 Plan of Care End Date 11/06/20 Therapeutic Interventions Therapeutic Interventions Aquatic Therapy,Balance Training,Canalithic Repositioning,Gait Training, Home Exercise Program,Manual Therapy,Neuromuscular Re- education,Patient/Caregiver Education,Self-Care/Home Management,Soft Tissue Mobilization,Taping, Therapeutic Activities, Therapeutic Exercises Modalities Cold Pack/Ice Massage,Electric Stimulation,Hot Packs, Ultrasound Next Visit Focus/Plan Next Note Type Treatment Note Next Visit Plan Keep encouraging pt to perform tasks without assist-- adjusting bike seat, putting her own feet on the pedals, getting on and off plinth without asst. Review HEP, add sit to stands with UE support, keep working on 6MWT, balance
--- NOTE | 2020-09-05 16:04 | PT.OTN ---
Current Diagnoses Unilateral primary osteoarthritis, left knee (09/05/20) Physical Therapy Treatment Note PT-OP-A Visit Information Start: 07/05/20 07:34 Freq: Status: Active Protocol: Document 09/05/20 15:15 DCW (Rec: 09/05/20 16:03 DCW [id number]) Out-Patient Physical Therapy Visit Information Visit Information Visit Type Treatment Note Visit Start Time 15:15 Visit Stop Time 16:00 Total Visit Minutes 45 Visit Number 15 Number of MANAGER LEARNING Visits 0 Evaluation Information Evaluation Date 07/05/20 PT-OP-B Current Condition Start: 07/05/20 07:34 Freq: Status: Active Protocol: Document 07/19/20 15:20 DCW (Rec: 07/19/20 15:45 DCW [id number]) Current Condition History of Current Condition Onset Date 10 years Current Complaints Post-op L TKA History of Current Condition Pt returns to therapy today following L TKA on 07/10/20. Pt reports she is in just as much pain today as I was the day after surgery. Pt performs limited ambulation around her home, basically just between her bed, chair, and bathroom. Pt reports she has been using a CPM machine, and is able to get up to 30 degrees flexion. Pt reports pain is about a 6/10 at rest, but is more like an 8/10 if she moves her leg. Pt is also reporting she has had a temperature this past week, hovering around 99 degrees, which is up from her usual temp of 97.6. Pt has been struggling with mobility secondary to pain. Personal Factors Other Personal Factors That May Effect Pt continues to be very self- Therapy/Recovery restrictive due to pain and, more frequently, fear of pain. PT-OP-C Subjective Start: 07/05/20 07:34 Freq: Status: Active Protocol: Document 09/05/20 15:15 DCW (Rec: 09/05/20 16:03 DCW [id number]) OP-PT Subjective Patient Comments Patient Comments Pt reports she didn't have any celebrex yesterday, and she was having quite a bit of pian by the end of the day, so today she took one Celebrex today and then a tylenol, notes she is not terrible today. PT-OP-E Functional Tests Start: 07/19/20 15:45 Freq: Status: Active Protocol: Document 07/19/20 15:20 DCW (Rec: 07/19/20 15:59 DCW [id number]) Functional Tests 2 Minute Walk Test Distance 16 Device Used FWW Comments Stopped at 1'12 PT-OP-G Mobility & Gait Start: 07/05/20 07:34 Freq: Status: Active Protocol: Document 07/19/20 15:20 DCW (Rec: 07/19/20 15:59 DCW [id number]) OP Gait Assessment Gait Gait Assistance Required: Minimum Assistance Distance (Feet) 16 Assistive Devices Assistive Device Front Wheeled Walker Gait Deviations General Gait Pattern Antalgic,Decreased Stride Length,Decreased Feet Clearance,Flexed Trunk,Narrow Based Gait,Step-to Gait Factors Limiting Gait Function Factors Limiting Gait Function Decreased Activity Tolerance, Decreased Strength,Limited Range of Motion,Pain,Poor Safety Awareness PT-OP-J Posture/Palpation/Skin Start: 07/05/20 07:34 Freq: Status: Active Protocol: Document 07/19/20 15:20 DCW (Rec: 07/19/20 15:45 DCW [id number]) Skin Assessment Circumference Measurement 3 Location 10 cm inferior to L Joint Line Measurement (Centimeters) 45.1 Comments 10 cm inerior to R Joint Line = 40.1 2 Location 10 cm superior to L Joint Line Measurement (Centimeters) 57.7 Comments 10 cm superior to R Joint Line = 48.0 1 Location L Joint Line Measurement (Centimeters) 50.4 Comments R Joint line = 45.3 PT-OP-K Range of Motion Start: 07/05/20 07:34 Freq: Status: Active Protocol: Document 07/19/20 15:20 DCW (Rec: 07/19/20 15:45 DCW [id number]) Knee Goniometric Range of Motion Knee Left Knee ROM WFL No Patient Position Sitting Flexion Active (degrees) 71 Extension Active (degrees) 15 PT-OP-M Strength Start: 07/05/20 07:34 Freq: Status: Active Protocol: Document 07/19/20 15:20 DCW (Rec: 07/19/20 15:45 DCW [id number]) Hip Strength Hip Manual Muscle Testing Left Flexion (L2) 4- Good- Abduction 3+ Fair+ Knee Strength Knee Manual Muscle Testing Right Flexion (S2) 4 Good Extension (L3) 4 Good Left Flexion (S2) 3- Fair- Extension (L3) 3- Fair- PT-OP-Q Treatments Start: 07/05/20 07:34 Freq: Status: Active Protocol: Document 09/05/20 15:15 DCW (Rec: 09/05/20 16:03 DCW [id number]) Cardio Equipment Recumbent Bicycle Duration (Minutes) 6 Resistance 0 Seat Position 7 Gym Equipment Shuttle Recovery Unilateral Squats Resistance 37# Shuttle Recovery Platform Stable Bilateral Squats Resistance 75# Shuttle Recovery Platform Stable Therapeutic Exercises Standing Exercises marching Standing Exercise Name Toe-taps Side bilateral Resistance 5# Equipment Used 6 step Hamstring Curls Standing Exercise Name Standing HS curls Side bilateral Resistance 5# Equipment Used // bars Other Exercises Resisted Side-stepping Other Exercise Name Sidestepping, Forward Resistance Yellow Equipment Used T-band Manual Therapy Treatment Soft Tissue Mobilization 1 Body Location L knee scar mob PT-OP-T Assessment and Plan Start: 07/05/20 07:34 Freq: Status: Active Protocol: Document 09/05/20 15:15 DCW (Rec: 09/05/20 16:03 DCW [id number]) Physical Therapy Assessment Impairments Impairments Activity Tolerance,Balance, Functional Activities, Functional Mobility,Gait, Integument,Pain,Posture,ROM, Soft Tissue Mobility,Strength, Transfers Other Impairments Personal factors include self- limiting behavior, ongoing use of opioids, assists pt for all tasks despite her demonstrating ability to perform transfers and bed mobility without assist today, obesity. Body systems affected include neuromuscular , musculoskeletal and psychosocial. Her functional presentation is stable to evolving. Goals Six Impairment 6MWT Short Term Goal (STG) Pt will gait train at least 1000 feet in 6 minutes with LRAD to improve community ambulation by 11/06/2020. 08/28/2020: Pt gait trains 563 feet in 6 minutes STG Duration 11/06/2020 5 Custodial Goal (LTG) Pt will present with LE functional index score to reflect no more than 30% impairment to allow improved functional I by 11/06/2020. 08/28/2020: LEF score is 66.25 % LTG Duration 11/06/2020 Four Alternative Energy Engineer Goal (LTG) Pt will present with improved left knee AROM to at least 3- 115 deg to improve functional transfers by 11/06/2020. 08/28/2020: AROM left knee 5- 100 deg today. LTG Duration 11/06/2020 Three Custodial Goal (LTG) Pt will by able to perform at least 10 reps sit to stand with UE support in 30 sec to improve safety with transfers at home by 11/06/2020. 08/28/2020: Pt cannot perform without UE support (self-limit /does not make good effort). 4 reps and pt stops, self- limits LTG Duration 11/06/2020 Two Custodial Goal (LTG) Pt will be able to get in and OOB I (on plinth, into supine and back off plinth) with I to improve bed mobility at home 08/28/2020: Goal met, though pt states that she cannot do it and requires encouragement. LTG Duration 09/18/20--MET One Short Term Goal (STG) Pt will perform progressive HEP with handouts to improve ROM, flexibility, strength, sit to stands, balance and gait. 08/28/2020: Review HEP with primary therapist next treatment date STG Duration 11/06/2020 Assessment Summary Assessment Pt doing better with self- motivation recently, willing to push herself into some more discomfort with exercise. Physical Therapy Plan Frequency and Duration Frequency of Treatment 2x/Week Duration of Treatment 8 weeks Plan of Care Start Date 08/28/20 Plan of Care End Date 11/06/20 Therapeutic Interventions Therapeutic Interventions Aquatic Therapy,Balance Training,Canalithic Repositioning,Gait Training, Home Exercise Program,Manual Therapy,Neuromuscular Re- education,Patient/Caregiver Education,Self-Care/Home Management,Soft Tissue Mobilization,Taping, Therapeutic Activities, Therapeutic Exercises Modalities Cold Pack/Ice Massage,Electric Stimulation,Hot Packs, Ultrasound Next Visit Focus/Plan Next Note Type Treatment Note Next Visit Plan Keep encouraging pt to perform tasks without assist-- adjusting bike seat, putting her own feet on the pedals, getting on and off plinth without asst. Review HEP, add sit to stands with UE support, keep working on 6MWT, balance
--- NOTE | 2020-09-09 15:59 | PT.OTN ---
Current Diagnoses Unilateral primary osteoarthritis, left knee (09/09/20) Physical Therapy Treatment Note PT-OP-A Visit Information Start: 07/05/20 07:34 Freq: Status: Active Protocol: Document 09/09/20 15:15 DCW (Rec: 09/09/20 15:58 DCW [id number]) Out-Patient Physical Therapy Visit Information Visit Information Visit Type Treatment Note Visit Start Time 15:15 Visit Stop Time 16:00 Total Visit Minutes 45 Visit Number 16 Number of CORPORATE ADMINISTRATIVE ASSISTANT Visits 0 Evaluation Information Evaluation Date 07/05/20 PT-OP-B Current Condition Start: 07/05/20 07:34 Freq: Status: Active Protocol: Document 07/19/20 15:20 DCW (Rec: 07/19/20 15:45 DCW [id number]) Current Condition History of Current Condition Onset Date 10 years Current Complaints Post-op L TKA History of Current Condition Pt returns to therapy today following L TKA on 07/10/20. Pt reports she is in just as much pain today as I was the day after surgery. Pt performs limited ambulation around her home, basically just between her bed, chair, and bathroom. Pt reports she has been using a CPM machine, and is able to get up to 30 degrees flexion. Pt reports pain is about a 6/10 at rest, but is more like an 8/10 if she moves her leg. Pt is also reporting she has had a temperature this past week, hovering around 99 degrees, which is up from her usual temp of 97.6. Pt has been struggling with mobility secondary to pain. Personal Factors Other Personal Factors That May Effect Pt continues to be very self- Therapy/Recovery restrictive due to pain and, more frequently, fear of pain. PT-OP-C Subjective Start: 07/05/20 07:34 Freq: Status: Active Protocol: Document 09/09/20 15:15 DCW (Rec: 09/09/20 15:58 DCW [id number]) OP-PT Subjective Patient Comments Patient Comments Pt reports she has suffered a significant setback, she had an increase in pain and swelling following her treatment session , reports she had difficulty standing and walking until today. Pt unsure of the cause of this setback, notes she didn't feel any problems during her session, just afterward. PT-OP-E Functional Tests Start: 07/19/20 15:45 Freq: Status: Active Protocol: Document 07/19/20 15:20 DCW (Rec: 07/19/20 15:59 DCW [id number]) Functional Tests 2 Minute Walk Test Distance 16 Device Used FWW Comments Stopped at 1'12 PT-OP-G Mobility & Gait Start: 07/05/20 07:34 Freq: Status: Active Protocol: Document 07/19/20 15:20 DCW (Rec: 07/19/20 15:59 DCW [id number]) OP Gait Assessment Gait Gait Assistance Required: Minimum Assistance Distance (Feet) 16 Assistive Devices Assistive Device Front Wheeled Walker Gait Deviations General Gait Pattern Antalgic,Decreased Stride Length,Decreased Feet Clearance,Flexed Trunk,Narrow Based Gait,Step-to Gait Factors Limiting Gait Function Factors Limiting Gait Function Decreased Activity Tolerance, Decreased Strength,Limited Range of Motion,Pain,Poor Safety Awareness PT-OP-J Posture/Palpation/Skin Start: 07/05/20 07:34 Freq: Status: Active Protocol: Document 07/19/20 15:20 DCW (Rec: 07/19/20 15:45 DCW [id number]) Skin Assessment Circumference Measurement 3 Location 10 cm inferior to L Joint Line Measurement (Centimeters) 45.1 Comments 10 cm inerior to R Joint Line = 40.1 2 Location 10 cm superior to L Joint Line Measurement (Centimeters) 57.7 Comments 10 cm superior to R Joint Line = 48.0 1 Location L Joint Line Measurement (Centimeters) 50.4 Comments R Joint line = 45.3 PT-OP-K Range of Motion Start: 07/05/20 07:34 Freq: Status: Active Protocol: Document 07/19/20 15:20 DCW (Rec: 07/19/20 15:45 DCW [id number]) Knee Goniometric Range of Motion Knee Left Knee ROM WFL No Patient Position Sitting Flexion Active (degrees) 71 Extension Active (degrees) 15 PT-OP-M Strength Start: 07/05/20 07:34 Freq: Status: Active Protocol: Document 07/19/20 15:20 DCW (Rec: 07/19/20 15:45 DCW [id number]) Hip Strength Hip Manual Muscle Testing Left Flexion (L2) 4- Good- Abduction 3+ Fair+ Knee Strength Knee Manual Muscle Testing Right Flexion (S2) 4 Good Extension (L3) 4 Good Left Flexion (S2) 3- Fair- Extension (L3) 3- Fair- PT-OP-Q Treatments Start: 07/05/20 07:34 Freq: Status: Active Protocol: Document 09/09/20 15:15 DCW (Rec: 09/09/20 15:58 DCW [id number]) Cardio Equipment Recumbent Bicycle Duration (Minutes) 6 Resistance 0 Seat Position 5 Other backward rotation x1 Therapeutic Exercises Standing Exercises step flexion stretch Standing Exercise Name Step stretch Side left marching Standing Exercise Name Toe-taps Side bilateral Resistance 5# Equipment Used 4 Manual Therapy Treatment Joint Mobilizations 2 Joint Patella mobs Direction Inf/Sup Grade III 1 Joint Knee Direction P->A Grade II PT-OP-T Assessment and Plan Start: 07/05/20 07:34 Freq: Status: Active Protocol: Document 09/09/20 15:15 DCW (Rec: 09/09/20 15:58 DCW [id number]) Physical Therapy Assessment Impairments Impairments Activity Tolerance,Balance, Functional Activities, Functional Mobility,Gait, Integument,Pain,Posture,ROM, Soft Tissue Mobility,Strength, Transfers Other Impairments Personal factors include self- limiting behavior, ongoing use of opioids, assists pt for all tasks despite her demonstrating ability to perform transfers and bed mobility without assist today, obesity. Body systems affected include neuromuscular , musculoskeletal and psychosocial. Her functional presentation is stable to evolving. Goals Six Impairment 6MWT Short Term Goal (STG) Pt will gait train at least 1000 feet in 6 minutes with LRAD to improve community ambulation by 11/06/2020. 08/28/2020: Pt gait trains 563 feet in 6 minutes STG Duration 11/06/2020 5 Grain Miller Helper Goal (LTG) Pt will present with LE functional index score to reflect no more than 30% impairment to allow improved functional I by 11/06/2020. 08/28/2020: LEF score is 66.25 % LTG Duration 11/06/2020 Four [facility] Goal (LTG) Pt will present with improved left knee AROM to at least 3- 115 deg to improve functional transfers by 11/06/2020. 08/28/2020: AROM left knee 5- 100 deg today. LTG Duration 11/06/2020 Three Grain Miller Helper Goal (LTG) Pt will by able to perform at least 10 reps sit to stand with UE support in 30 sec to improve safety with transfers at home by 11/06/2020. 08/28/2020: Pt cannot perform without UE support (self-limit /does not make good effort). 4 reps and pt stops, self- limits LTG Duration 11/06/2020 Two Grain Miller Helper Goal (LTG) Pt will be able to get in and OOB I (on plinth, into supine and back off plinth) with I to improve bed mobility at home 08/28/2020: Goal met, though pt states that she cannot do it and requires encouragement. LTG Duration 09/18/20--MET One Short Term Goal (STG) Pt will perform progressive HEP with handouts to improve ROM, flexibility, strength, sit to stands, balance and gait. 08/28/2020: Review HEP with primary therapist next treatment date STG Duration 11/06/2020 Assessment Summary Assessment Pt did have some increased swelling today, struggled with ROM and pain control more today than she has recently. Physical Therapy Plan Frequency and Duration Frequency of Treatment 2x/Week Duration of Treatment 8 weeks Plan of Care Start Date 08/28/20 Plan of Care End Date 11/06/20 Therapeutic Interventions Therapeutic Interventions Aquatic Therapy,Balance Training,Canalithic Repositioning,Gait Training, Home Exercise Program,Manual Therapy,Neuromuscular Re- education,Patient/Caregiver Education,Self-Care/Home Management,Soft Tissue Mobilization,Taping, Therapeutic Activities, Therapeutic Exercises Modalities Cold Pack/Ice Massage,Electric Stimulation,Hot Packs, Ultrasound Next Visit Focus/Plan Next Note Type Treatment Note Next Visit Plan Keep encouraging pt to perform tasks without assist-- adjusting bike seat, putting her own feet on the pedals, getting on and off plinth without asst. Review HEP, add sit to stands with UE support, keep working on 6MWT, balance
--- NOTE | 2020-09-12 16:02 | PT.OTN ---
Current Diagnoses Unilateral primary osteoarthritis, left knee (09/12/20) Physical Therapy Treatment Note PT-OP-A Visit Information Start: 07/05/20 07:34 Freq: Status: Active Protocol: Document 09/12/20 15:15 DCW (Rec: 09/12/20 16:02 DCW [id number]) Out-Patient Physical Therapy Visit Information Visit Information Visit Type Treatment Note Visit Start Time 15:15 Visit Stop Time 16:00 Total Visit Minutes 45 Visit Number 17 Number of WEEKEND ANCHOR Visits 0 Evaluation Information Evaluation Date 07/05/20 PT-OP-B Current Condition Start: 07/05/20 07:34 Freq: Status: Active Protocol: Document 07/19/20 15:20 DCW (Rec: 07/19/20 15:45 DCW [id number]) Current Condition History of Current Condition Onset Date 10 years Current Complaints Post-op L TKA History of Current Condition Pt returns to therapy today following L TKA on 07/10/20. Pt reports she is in just as much pain today as I was the day after surgery. Pt performs limited ambulation around her home, basically just between her bed, chair, and bathroom. Pt reports she has been using a CPM machine, and is able to get up to 30 degrees flexion. Pt reports pain is about a 6/10 at rest, but is more like an 8/10 if she moves her leg. Pt is also reporting she has had a temperature this past week, hovering around 99 degrees, which is up from her usual temp of 97.6. Pt has been struggling with mobility secondary to pain. Personal Factors Other Personal Factors That May Effect Pt continues to be very self- Therapy/Recovery restrictive due to pain and, more frequently, fear of pain. PT-OP-C Subjective Start: 07/05/20 07:34 Freq: Status: Active Protocol: Document 09/12/20 15:15 DCW (Rec: 09/12/20 16:02 DCW [id number]) OP-PT Subjective Patient Comments Patient Comments Pt admits to feeling much better after feeling like she was suffering a setback earlier this week. PT-OP-E Functional Tests Start: 07/19/20 15:45 Freq: Status: Active Protocol: Document 07/19/20 15:20 DCW (Rec: 07/19/20 15:59 DCW [id number]) Functional Tests 2 Minute Walk Test Distance 16 Device Used FWW Comments Stopped at 1'12 PT-OP-G Mobility & Gait Start: 07/05/20 07:34 Freq: Status: Active Protocol: Document 07/19/20 15:20 DCW (Rec: 07/19/20 15:59 DCW [id number]) OP Gait Assessment Gait Gait Assistance Required: Minimum Assistance Distance (Feet) 16 Assistive Devices Assistive Device Front Wheeled Walker Gait Deviations General Gait Pattern Antalgic,Decreased Stride Length,Decreased Feet Clearance,Flexed Trunk,Narrow Based Gait,Step-to Gait Factors Limiting Gait Function Factors Limiting Gait Function Decreased Activity Tolerance, Decreased Strength,Limited Range of Motion,Pain,Poor Safety Awareness PT-OP-J Posture/Palpation/Skin Start: 07/05/20 07:34 Freq: Status: Active Protocol: Document 07/19/20 15:20 DCW (Rec: 07/19/20 15:45 DCW [id number]) Skin Assessment Circumference Measurement 3 Location 10 cm inferior to L Joint Line Measurement (Centimeters) 45.1 Comments 10 cm inerior to R Joint Line = 40.1 2 Location 10 cm superior to L Joint Line Measurement (Centimeters) 57.7 Comments 10 cm superior to R Joint Line = 48.0 1 Location L Joint Line Measurement (Centimeters) 50.4 Comments R Joint line = 45.3 PT-OP-K Range of Motion Start: 07/05/20 07:34 Freq: Status: Active Protocol: Document 07/19/20 15:20 DCW (Rec: 07/19/20 15:45 DCW [id number]) Knee Goniometric Range of Motion Knee Left Knee ROM WFL No Patient Position Sitting Flexion Active (degrees) 71 Extension Active (degrees) 15 PT-OP-M Strength Start: 07/05/20 07:34 Freq: Status: Active Protocol: Document 07/19/20 15:20 DCW (Rec: 07/19/20 15:45 DCW [id number]) Hip Strength Hip Manual Muscle Testing Left Flexion (L2) 4- Good- Abduction 3+ Fair+ Knee Strength Knee Manual Muscle Testing Right Flexion (S2) 4 Good Extension (L3) 4 Good Left Flexion (S2) 3- Fair- Extension (L3) 3- Fair- PT-OP-Q Treatments Start: 07/05/20 07:34 Freq: Status: Active Protocol: Document 09/12/20 15:15 DCW (Rec: 09/12/20 16:02 DCW [id number]) Cardio Equipment Recumbent Bicycle Duration (Minutes) 6 Resistance 0 Seat Position 5 Gym Equipment Shuttle Recovery Unilateral Squats Resistance 37# Shuttle Recovery Platform Stable Bilateral Squats Resistance 75# Shuttle Recovery Platform Stable Therapeutic Exercises Standing Exercises step flexion stretch Standing Exercise Name Step stretch Side left marching Standing Exercise Name Toe-taps Side bilateral Resistance 5# Equipment Used 4 Other Exercises Resisted Side-stepping Other Exercise Name Sidestepping, Forward Resistance Yellow Equipment Used T-band Manual Therapy Treatment Joint Mobilizations 2 Joint Patella mobs Direction Inf/Sup Grade III 1 Joint Knee Direction P->A Grade II PT-OP-T Assessment and Plan Start: 07/05/20 07:34 Freq: Status: Active Protocol: Document 09/12/20 15:15 DCW (Rec: 09/12/20 16:02 DCW [id number]) Physical Therapy Assessment Impairments Impairments Activity Tolerance,Balance, Functional Activities, Functional Mobility,Gait, Integument,Pain,Posture,ROM, Soft Tissue Mobility,Strength, Transfers Other Impairments Personal factors include self- limiting behavior, ongoing use of opioids, assists pt for all tasks despite her demonstrating ability to perform transfers and bed mobility without assist today, obesity. Body systems affected include neuromuscular , musculoskeletal and psychosocial. Her functional presentation is stable to evolving. Goals Six Impairment 6MWT Short Term Goal (STG) Pt will gait train at least 1000 feet in 6 minutes with LRAD to improve community ambulation by 11/06/2020. 08/28/2020: Pt gait trains 563 feet in 6 minutes STG Duration 11/06/2020 5 Transcribing Machine Mechanic Goal (LTG) Pt will present with LE functional index score to reflect no more than 30% impairment to allow improved functional I by 11/06/2020. 08/28/2020: LEF score is 66.25 % LTG Duration 11/06/2020 Four Intermediate Goal (LTG) Pt will present with improved left knee AROM to at least 3- 115 deg to improve functional transfers by 11/06/2020. 08/28/2020: AROM left knee 5- 100 deg today. LTG Duration 11/06/2020 Three Intermediate Goal (LTG) Pt will by able to perform at least 10 reps sit to stand with UE support in 30 sec to improve safety with transfers at home by 11/06/2020. 08/28/2020: Pt cannot perform without UE support (self-limit /does not make good effort). 4 reps and pt stops, self- limits LTG Duration 11/06/2020 Two Transcribing Machine Mechanic Goal (LTG) Pt will be able to get in and OOB I (on plinth, into supine and back off plinth) with I to improve bed mobility at home 08/28/2020: Goal met, though pt states that she cannot do it and requires encouragement. LTG Duration 09/18/20--MET One Short Term Goal (STG) Pt will perform progressive HEP with handouts to improve ROM, flexibility, strength, sit to stands, balance and gait. 08/28/2020: Review HEP with primary therapist next treatment date STG Duration 11/06/2020 Assessment Summary Assessment Pt doing much better today, ambulation, ROM, activity tolerance all improved from last visit. Pt not complaining of pain today. Physical Therapy Plan Frequency and Duration Frequency of Treatment 2x/Week Duration of Treatment 8 weeks Plan of Care Start Date 08/28/20 Plan of Care End Date 11/06/20 Therapeutic Interventions Therapeutic Interventions Aquatic Therapy,Balance Training,Canalithic Repositioning,Gait Training, Home Exercise Program,Manual Therapy,Neuromuscular Re- education,Patient/Caregiver Education,Self-Care/Home Management,Soft Tissue Mobilization,Taping, Therapeutic Activities, Therapeutic Exercises Modalities Cold Pack/Ice Massage,Electric Stimulation,Hot Packs, Ultrasound Next Visit Focus/Plan Next Note Type Treatment Note Next Visit Plan Keep encouraging pt to perform tasks without assist-- adjusting bike seat, putting her own feet on the pedals, getting on and off plinth without asst. Review HEP, add sit to stands with UE support, keep working on 6MWT, balance
--- NOTE | 2020-09-19 15:16 | PT.OTN ---
Current Diagnoses Unilateral primary osteoarthritis, left knee (09/19/20) Physical Therapy Treatment Note PT-OP-A Visit Information Start: 07/05/20 07:34 Freq: Status: Active Protocol: Document 09/19/20 14:30 DCW (Rec: 09/19/20 15:16 DCW [id number]) Out-Patient Physical Therapy Visit Information Visit Information Visit Type Treatment Note Visit Start Time 14:30 Visit Stop Time 15:15 Total Visit Minutes 45 Visit Number 18 Number of DATABASE ANALYST Visits 0 Evaluation Information Evaluation Date 07/05/20 PT-OP-B Current Condition Start: 07/05/20 07:34 Freq: Status: Active Protocol: Document 07/19/20 15:20 DCW (Rec: 07/19/20 15:45 DCW [id number]) Current Condition History of Current Condition Onset Date 10 years Current Complaints Post-op L TKA History of Current Condition Pt returns to therapy today following L TKA on 07/10/20. Pt reports she is in just as much pain today as I was the day after surgery. Pt performs limited ambulation around her home, basically just between her bed, chair, and bathroom. Pt reports she has been using a CPM machine, and is able to get up to 30 degrees flexion. Pt reports pain is about a 6/10 at rest, but is more like an 8/10 if she moves her leg. Pt is also reporting she has had a temperature this past week, hovering around 99 degrees, which is up from her usual temp of 97.6. Pt has been struggling with mobility secondary to pain. Personal Factors Other Personal Factors That May Effect Pt continues to be very self- Therapy/Recovery restrictive due to pain and, more frequently, fear of pain. PT-OP-C Subjective Start: 07/05/20 07:34 Freq: Status: Active Protocol: Document 09/19/20 14:30 DCW (Rec: 09/19/20 15:16 DCW [id number]) OP-PT Subjective Patient Comments Patient Comments Pt has been icing her knee, has been working on her recumbent bicycle, and overall feels like she is improving again. PT-OP-E Functional Tests Start: 07/19/20 15:45 Freq: Status: Active Protocol: Document 07/19/20 15:20 DCW (Rec: 07/19/20 15:59 DCW [id number]) Functional Tests 2 Minute Walk Test Distance 16 Device Used FWW Comments Stopped at 1'12 PT-OP-G Mobility & Gait Start: 07/05/20 07:34 Freq: Status: Active Protocol: Document 07/19/20 15:20 DCW (Rec: 07/19/20 15:59 DCW [id number]) OP Gait Assessment Gait Gait Assistance Required: Minimum Assistance Distance (Feet) 16 Assistive Devices Assistive Device Front Wheeled Walker Gait Deviations General Gait Pattern Antalgic,Decreased Stride Length,Decreased Feet Clearance,Flexed Trunk,Narrow Based Gait,Step-to Gait Factors Limiting Gait Function Factors Limiting Gait Function Decreased Activity Tolerance, Decreased Strength,Limited Range of Motion,Pain,Poor Safety Awareness PT-OP-J Posture/Palpation/Skin Start: 07/05/20 07:34 Freq: Status: Active Protocol: Document 07/19/20 15:20 DCW (Rec: 07/19/20 15:45 DCW [id number]) Skin Assessment Circumference Measurement 3 Location 10 cm inferior to L Joint Line Measurement (Centimeters) 45.1 Comments 10 cm inerior to R Joint Line = 40.1 2 Location 10 cm superior to L Joint Line Measurement (Centimeters) 57.7 Comments 10 cm superior to R Joint Line = 48.0 1 Location L Joint Line Measurement (Centimeters) 50.4 Comments R Joint line = 45.3 PT-OP-K Range of Motion Start: 07/05/20 07:34 Freq: Status: Active Protocol: Document 07/19/20 15:20 DCW (Rec: 07/19/20 15:45 DCW [id number]) Knee Goniometric Range of Motion Knee Left Knee ROM WFL No Patient Position Sitting Flexion Active (degrees) 71 Extension Active (degrees) 15 PT-OP-M Strength Start: 07/05/20 07:34 Freq: Status: Active Protocol: Document 07/19/20 15:20 DCW (Rec: 07/19/20 15:45 DCW [id number]) Hip Strength Hip Manual Muscle Testing Left Flexion (L2) 4- Good- Abduction 3+ Fair+ Knee Strength Knee Manual Muscle Testing Right Flexion (S2) 4 Good Extension (L3) 4 Good Left Flexion (S2) 3- Fair- Extension (L3) 3- Fair- PT-OP-Q Treatments Start: 08/28/20 07:34 Freq: Status: Active Protocol: Document 09/19/20 14:30 DCW (Rec: 09/19/20 15:16 DCW [id number]) Cardio Equipment Recumbent Bicycle Duration (Minutes) 6 Resistance 0 Seat Position 5 Gym Equipment Shuttle Recovery Unilateral Squats Resistance 37# Shuttle Recovery Platform Stable Bilateral Squats Resistance 75# Shuttle Recovery Platform Stable Therapeutic Exercises Standing Exercises step flexion stretch Standing Exercise Name Step stretch Side left Hip Extension Standing Exercise Name Hip Extension Side bilateral Resistance Yellow Equipment Used T-band Other Exercises Resisted Side-stepping Other Exercise Name Sidestepping, Forward Resistance Yellow Equipment Used T-band Manual Therapy Treatment Joint Mobilizations 2 Joint Patella mobs Direction Inf/Sup Grade III 1 Joint Knee Direction P->A Grade II PT-OP-T Assessment and Plan Start: 07/05/20 07:34 Freq: Status: Active Protocol: Document 09/19/20 14:30 DCW (Rec: 09/19/20 15:16 DCW [id number]) Physical Therapy Assessment Impairments Impairments Activity Tolerance,Balance, Functional Activities, Functional Mobility,Gait, Integument,Pain,Posture,ROM, Soft Tissue Mobility,Strength, Transfers Other Impairments Personal factors include self- limiting behavior, ongoing use of opioids, assists pt for all tasks despite her demonstrating ability to perform transfers and bed mobility without assist today, obesity. Body systems affected include neuromuscular , musculoskeletal and psychosocial. Her functional presentation is stable to evolving. Goals Six Impairment 6MWT Short Term Goal (STG) Pt will gait train at least 1000 feet in 6 minutes with LRAD to improve community ambulation by 11/06/2020. 08/28/2020: Pt gait trains 563 feet in 6 minutes STG Duration 11/06/2020 5 Mcfp Goal (LTG) Pt will present with LE functional index score to reflect no more than 30% impairment to allow improved functional I by 11/06/2020. 08/28/2020: LEF score is 66.25 % LTG Duration 11/06/2020 Four Cashier Receptionist Goal (LTG) Pt will present with improved left knee AROM to at least 3- 115 deg to improve functional transfers by 11/06/2020. 08/28/2020: AROM left knee 5- 100 deg today. LTG Duration 11/06/2020 Three Mcfp Goal (LTG) Pt will by able to perform at least 10 reps sit to stand with UE support in 30 sec to improve safety with transfers at home by 11/06/2020. 08/28/2020: Pt cannot perform without UE support (self-limit /does not make good effort). 4 reps and pt stops, self- limits LTG Duration 11/06/2020 Two Cashier Receptionist Goal (LTG) Pt will be able to get in and OOB I (on plinth, into supine and back off plinth) with I to improve bed mobility at home 08/28/2020: Goal met, though pt states that she cannot do it and requires encouragement. LTG Duration 09/18/20--MET One Short Term Goal (STG) Pt will perform progressive HEP with handouts to improve ROM, flexibility, strength, sit to stands, balance and gait. 08/28/2020: Review HEP with primary therapist next treatment date STG Duration 11/06/2020 Assessment Summary Assessment Pt continues to show good progress with ROM and mobility . Has increased home activities as well. Physical Therapy Plan Frequency and Duration Frequency of Treatment 2x/Week Duration of Treatment 8 weeks Plan of Care Start Date 08/28/20 Plan of Care End Date 11/06/20 Therapeutic Interventions Therapeutic Interventions Aquatic Therapy,Balance Training,Canalithic Repositioning,Gait Training, Home Exercise Program,Manual Therapy,Neuromuscular Re- education,Patient/Caregiver Education,Self-Care/Home Management,Soft Tissue Mobilization,Taping, Therapeutic Activities, Therapeutic Exercises Modalities Cold Pack/Ice Massage,Electric Stimulation,Hot Packs, Ultrasound Next Visit Focus/Plan Next Note Type Treatment Note Next Visit Plan Keep encouraging pt to perform tasks without assist-- adjusting bike seat, putting her own feet on the pedals, getting on and off plinth without asst. Review HEP, add sit to stands with UE support, keep working on 6MWT, balance
--- NOTE | 2020-09-25 12:44 | PT.OTN ---
Current Diagnoses Unilateral primary osteoarthritis, left knee (09/25/20) Physical Therapy Treatment Note PT-OP-A Visit Information Start: 07/05/20 07:34 Freq: Status: Active Protocol: Document 09/25/20 12:00 DCW (Rec: 09/25/20 12:44 DCW [id number]) Out-Patient Physical Therapy Visit Information Visit Information Visit Type Treatment Note Visit Start Time 12:00 Visit Stop Time 12:45 Total Visit Minutes 45 Visit Number 19 Number of FIBROUS PLASTERER Visits 0 Evaluation Information Evaluation Date 07/05/20 PT-OP-B Current Condition Start: 07/05/20 07:34 Freq: Status: Active Protocol: Document 07/19/20 15:20 DCW (Rec: 07/19/20 15:45 DCW [id number]) Current Condition History of Current Condition Onset Date 10 years Current Complaints Post-op L TKA History of Current Condition Pt returns to therapy today following L TKA on 07/10/20. Pt reports she is in just as much pain today as I was the day after surgery. Pt performs limited ambulation around her home, basically just between her bed, chair, and bathroom. Pt reports she has been using a CPM machine, and is able to get up to 30 degrees flexion. Pt reports pain is about a 6/10 at rest, but is more like an 8/10 if she moves her leg. Pt is also reporting she has had a temperature this past week, hovering around 99 degrees, which is up from her usual temp of 97.6. Pt has been struggling with mobility secondary to pain. Personal Factors Other Personal Factors That May Effect Pt continues to be very self- Therapy/Recovery restrictive due to pain and, more frequently, fear of pain. PT-OP-C Subjective Start: 07/05/20 07:34 Freq: Status: Active Protocol: Document 09/25/20 12:00 DCW (Rec: 09/25/20 12:44 DCW [id number]) OP-PT Subjective Patient Comments Patient Comments I'm feeling more normal. My movement feels more natural. Pt notes she has still been increasing her work at home, and is now up to level 12 on her recumbent bike. PT-OP-E Functional Tests Start: 07/19/20 15:45 Freq: Status: Active Protocol: Document 07/19/20 15:20 DCW (Rec: 07/19/20 15:59 DCW [id number]) Functional Tests 2 Minute Walk Test Distance 16 Device Used FWW Comments Stopped at 1'12 PT-OP-G Mobility & Gait Start: 07/05/20 07:34 Freq: Status: Active Protocol: Document 07/19/20 15:20 DCW (Rec: 07/19/20 15:59 DCW [id number]) OP Gait Assessment Gait Gait Assistance Required: Minimum Assistance Distance (Feet) 16 Assistive Devices Assistive Device Front Wheeled Walker Gait Deviations General Gait Pattern Antalgic,Decreased Stride Length,Decreased Feet Clearance,Flexed Trunk,Narrow Based Gait,Step-to Gait Factors Limiting Gait Function Factors Limiting Gait Function Decreased Activity Tolerance, Decreased Strength,Limited Range of Motion,Pain,Poor Safety Awareness PT-OP-J Posture/Palpation/Skin Start: 07/05/20 07:34 Freq: Status: Active Protocol: Document 07/19/20 15:20 DCW (Rec: 07/19/20 15:45 DCW [id number]) Skin Assessment Circumference Measurement 3 Location 10 cm inferior to L Joint Line Measurement (Centimeters) 45.1 Comments 10 cm inerior to R Joint Line = 40.1 2 Location 10 cm superior to L Joint Line Measurement (Centimeters) 57.7 Comments 10 cm superior to R Joint Line = 48.0 1 Location L Joint Line Measurement (Centimeters) 50.4 Comments R Joint line = 45.3 PT-OP-K Range of Motion Start: 07/05/20 07:34 Freq: Status: Active Protocol: Document 07/19/20 15:20 DCW (Rec: 07/19/20 15:45 DCW [id number]) Knee Goniometric Range of Motion Knee Left Knee ROM WFL No Patient Position Sitting Flexion Active (degrees) 71 Extension Active (degrees) 15 PT-OP-M Strength Start: 07/05/20 07:34 Freq: Status: Active Protocol: Document 07/19/20 15:20 DCW (Rec: 07/19/20 15:45 DCW [id number]) Hip Strength Hip Manual Muscle Testing Left Flexion (L2) 4- Good- Abduction 3+ Fair+ Knee Strength Knee Manual Muscle Testing Right Flexion (S2) 4 Good Extension (L3) 4 Good Left Flexion (S2) 3- Fair- Extension (L3) 3- Fair- PT-OP-Q Treatments Start: 07/05/20 07:34 Freq: Status: Active Protocol: Document 09/25/20 12:00 DCW (Rec: 09/25/20 12:44 DCW [id number]) Cardio Equipment Recumbent Bicycle Duration (Minutes) 6 Resistance 0 Seat Position 5 Gym Equipment Shuttle Recovery Unilateral Squats Resistance 37# Shuttle Recovery Platform Stable Bilateral Squats Resistance 75# Shuttle Recovery Platform Stable Therapeutic Exercises Standing Exercises TKE Standing Exercise Name TKE Side left Resistance Lv 2 Equipment Used T-band step flexion stretch Standing Exercise Name Step stretch Side left Hip Extension Standing Exercise Name Hip Extension Side bilateral Resistance Lv 2 Equipment Used T-band Other Exercises Resisted Side-stepping Other Exercise Name Sidestepping, Forward Resistance Yellow Equipment Used T-band Gait Training Gait Activity gait with cane Description Bilateral walking sticks Level of Assistance CG to min assist Distance/Duration 150' Manual Therapy Treatment Joint Mobilizations 2 Joint Patella mobs Direction Inf/Sup Grade III 1 Joint Knee Direction P->A Grade II PT-OP-T Assessment and Plan Start: 07/05/20 07:34 Freq: Status: Active Protocol: Document 09/25/20 12:00 DCW (Rec: 09/25/20 12:44 DCW [id number]) Physical Therapy Assessment Impairments Impairments Activity Tolerance,Balance, Functional Activities, Functional Mobility,Gait, Integument,Pain,Posture,ROM, Soft Tissue Mobility,Strength, Transfers Other Impairments Personal factors include self- limiting behavior, ongoing use of opioids, assists pt for all tasks despite her demonstrating ability to perform transfers and bed mobility without assist today, obesity. Body systems affected include neuromuscular , musculoskeletal and psychosocial. Her functional presentation is stable to evolving. Goals Six Impairment 6MWT Short Term Goal (STG) Pt will gait train at least 1000 feet in 6 minutes with LRAD to improve community ambulation by 11/06/2020. 08/28/2020: Pt gait trains 563 feet in 6 minutes STG Duration 11/06/2020 5 Long-Term Goal (LTG) Pt will present with LE functional index score to reflect no more than 30% impairment to allow improved functional I by 11/06/2020. 08/28/2020: LEF score is 66.25 % LTG Duration 11/06/2020 Four Cytopathology Technologist Goal (LTG) Pt will present with improved left knee AROM to at least 3- 115 deg to improve functional transfers by 11/06/2020. 08/28/2020: AROM left knee 5- 100 deg today. LTG Duration 11/06/2020 Three Cytopathology Technologist Goal (LTG) Pt will by able to perform at least 10 reps sit to stand with UE support in 30 sec to improve safety with transfers at home by 11/06/2020. 08/28/2020: Pt cannot perform without UE support (self-limit /does not make good effort). 4 reps and pt stops, self- limits LTG Duration 11/06/2020 Two Cytopathology Technologist Goal (LTG) Pt will be able to get in and OOB I (on plinth, into supine and back off plinth) with I to improve bed mobility at home 08/28/2020: Goal met, though pt states that she cannot do it and requires encouragement. LTG Duration 09/18/20--MET One Short Term Goal (STG) Pt will perform progressive HEP with handouts to improve ROM, flexibility, strength, sit to stands, balance and gait. 08/28/2020: Review HEP with primary therapist next treatment date STG Duration 11/06/2020 Assessment Summary Assessment After a few fairly good appointments, pt was pretty self-limiting again today. No complaints of much pain per se , just not up to doing much activity today. Physical Therapy Plan Frequency and Duration Frequency of Treatment 2x/Week Duration of Treatment 8 weeks Plan of Care Start Date 08/28/20 Plan of Care End Date 11/06/20 Therapeutic Interventions Therapeutic Interventions Aquatic Therapy,Balance Training,Canalithic Repositioning,Gait Training, Home Exercise Program,Manual Therapy,Neuromuscular Re- education,Patient/Caregiver Education,Self-Care/Home Management,Soft Tissue Mobilization,Taping, Therapeutic Activities, Therapeutic Exercises Modalities Cold Pack/Ice Massage,Electric Stimulation,Hot Packs, Ultrasound Next Visit Focus/Plan Next Note Type Treatment Note Next Visit Plan Keep encouraging pt to perform tasks without assist-- adjusting bike seat, putting her own feet on the pedals, getting on and off plinth without asst. Review HEP, add sit to stands with UE support, keep working on 6MWT, balance
--- NOTE | 2020-10-01 15:59 | PT.OTN ---
Current Diagnoses Unilateral primary osteoarthritis, left knee (10/01/20) Physical Therapy Treatment Note PT-OP-A Visit Information Start: 07/05/20 07:34 Freq: Status: Active Protocol: Document 10/01/20 15:15 DCW (Rec: 10/01/20 15:59 DCW [id number]) Out-Patient Physical Therapy Visit Information Visit Information Visit Type Treatment Note Visit Start Time 15:15 Visit Stop Time 16:00 Total Visit Minutes 45 Visit Number 20 Number of ROSTER CLERK Visits 0 Evaluation Information Evaluation Date 07/05/20 PT-OP-B Current Condition Start: 07/05/20 07:34 Freq: Status: Active Protocol: Document 07/19/20 15:20 DCW (Rec: 07/19/20 15:45 DCW [id number]) Current Condition History of Current Condition Onset Date 10 years Current Complaints Post-op L TKA History of Current Condition Pt returns to therapy today following L TKA on 07/10/20. Pt reports she is in just as much pain today as I was the day after surgery. Pt performs limited ambulation around her home, basically just between her bed, chair, and bathroom. Pt reports she has been using a CPM machine, and is able to get up to 30 degrees flexion. Pt reports pain is about a 6/10 at rest, but is more like an 8/10 if she moves her leg. Pt is also reporting she has had a temperature this past week, hovering around 99 degrees, which is up from her usual temp of 97.6. Pt has been struggling with mobility secondary to pain. Personal Factors Other Personal Factors That May Effect Pt continues to be very self- Therapy/Recovery restrictive due to pain and, more frequently, fear of pain. PT-OP-C Subjective Start: 07/05/20 07:34 Freq: Status: Active Protocol: Document 10/01/20 15:15 DCW (Rec: 10/01/20 15:59 DCW [id number]) OP-PT Subjective Patient Comments Patient Comments I feel normal. I haven't been taking Celebrex, except for today because I was coming here. PT-OP-E Functional Tests Start: 07/19/20 15:45 Freq: Status: Active Protocol: Document 07/19/20 15:20 DCW (Rec: 07/19/20 15:59 DCW [id number]) Functional Tests 2 Minute Walk Test Distance 16 Device Used FWW Comments Stopped at 1'12 PT-OP-G Mobility & Gait Start: 07/05/20 07:34 Freq: Status: Active Protocol: Document 07/19/20 15:20 DCW (Rec: 07/19/20 15:59 DCW [id number]) OP Gait Assessment Gait Gait Assistance Required: Minimum Assistance Distance (Feet) 16 Assistive Devices Assistive Device Front Wheeled Walker Gait Deviations General Gait Pattern Antalgic,Decreased Stride Length,Decreased Feet Clearance,Flexed Trunk,Narrow Based Gait,Step-to Gait Factors Limiting Gait Function Factors Limiting Gait Function Decreased Activity Tolerance, Decreased Strength,Limited Range of Motion,Pain,Poor Safety Awareness PT-OP-J Posture/Palpation/Skin Start: 07/05/20 07:34 Freq: Status: Active Protocol: Document 07/19/20 15:20 DCW (Rec: 07/19/20 15:45 DCW [id number]) Skin Assessment Circumference Measurement 3 Location 10 cm inferior to L Joint Line Measurement (Centimeters) 45.1 Comments 10 cm inerior to R Joint Line = 40.1 2 Location 10 cm superior to L Joint Line Measurement (Centimeters) 57.7 Comments 10 cm superior to R Joint Line = 48.0 1 Location L Joint Line Measurement (Centimeters) 50.4 Comments R Joint line = 45.3 PT-OP-K Range of Motion Start: 07/05/20 07:34 Freq: Status: Active Protocol: Document 07/19/20 15:20 DCW (Rec: 07/19/20 15:45 DCW [id number]) Knee Goniometric Range of Motion Knee Left Knee ROM WFL No Patient Position Sitting Flexion Active (degrees) 71 Extension Active (degrees) 15 PT-OP-M Strength Start: 07/05/20 07:34 Freq: Status: Active Protocol: Document 07/19/20 15:20 DCW (Rec: 07/19/20 15:45 DCW [id number]) Hip Strength Hip Manual Muscle Testing Left Flexion (L2) 4- Good- Abduction 3+ Fair+ Knee Strength Knee Manual Muscle Testing Right Flexion (S2) 4 Good Extension (L3) 4 Good Left Flexion (S2) 3- Fair- Extension (L3) 3- Fair- PT-OP-Q Treatments Start: 07/05/20 07:34 Freq: Status: Active Protocol: Document 10/01/20 15:15 DCW (Rec: 10/01/20 15:59 DCW [id number]) Cardio Equipment Recumbent Bicycle Duration (Minutes) 6 Resistance 1 Seat Position 5 Gym Equipment Shuttle Recovery Unilateral Squats Resistance 37# Shuttle Recovery Platform Stable Bilateral Squats Resistance 75# Shuttle Recovery Platform Stable Therapeutic Exercises Standing Exercises Step-ups Standing Exercise Name Step-ups Side left Equipment Used 4 step Other Exercises Resisted Side-stepping Other Exercise Name Sidestepping, Forward, Backward Resistance Yellow Equipment Used T-band Manual Therapy Treatment Joint Mobilizations 2 Joint Patella mobs Direction Inf/Sup Grade III 1 Joint Knee Direction P->A Grade II PT-OP-T Assessment and Plan Start: 07/05/20 07:34 Freq: Status: Active Protocol: Document 10/01/20 15:15 DCW (Rec: 10/01/20 15:59 DCW [id number]) Physical Therapy Assessment Impairments Impairments Activity Tolerance,Balance, Functional Activities, Functional Mobility,Gait, Integument,Pain,Posture,ROM, Soft Tissue Mobility,Strength, Transfers Other Impairments Personal factors include self- limiting behavior, ongoing use of opioids, assists pt for all tasks despite her demonstrating ability to perform transfers and bed mobility without assist today, obesity. Body systems affected include neuromuscular , musculoskeletal and psychosocial. Her functional presentation is stable to evolving. Goals Six Impairment 6MWT Short Term Goal (STG) Pt will gait train at least 1000 feet in 6 minutes with LRAD to improve community ambulation by 11/06/2020. 08/28/2020: Pt gait trains 563 feet in 6 minutes STG Duration 11/06/2020 5 Alf Goal (LTG) Pt will present with LE functional index score to reflect no more than 30% impairment to allow improved functional I by 11/06/2020. 08/28/2020: LEF score is 66.25 % LTG Duration 11/06/2020 Four Product Safety Officer Goal (LTG) Pt will present with improved left knee AROM to at least 3- 115 deg to improve functional transfers by 11/06/2020. 08/28/2020: AROM left knee 5- 100 deg today. LTG Duration 11/06/2020 Three Product Safety Officer Goal (LTG) Pt will by able to perform at least 10 reps sit to stand with UE support in 30 sec to improve safety with transfers at home by 11/06/2020. 08/28/2020: Pt cannot perform without UE support (self-limit /does not make good effort). 4 reps and pt stops, self- limits LTG Duration 11/06/2020 Two Product Safety Officer Goal (LTG) Pt will be able to get in and OOB I (on plinth, into supine and back off plinth) with I to improve bed mobility at home 08/28/2020: Goal met, though pt states that she cannot do it and requires encouragement. LTG Duration 09/18/20--MET One Short Term Goal (STG) Pt will perform progressive HEP with handouts to improve ROM, flexibility, strength, sit to stands, balance and gait. 08/28/2020: Review HEP with primary therapist next treatment date STG Duration 11/06/2020 Assessment Summary Assessment Pt much better today, agreeable to all activities, no complaints of pain or difficulty. Physical Therapy Plan Frequency and Duration Frequency of Treatment 2x/Week Duration of Treatment 8 weeks Plan of Care Start Date 08/28/20 Plan of Care End Date 11/06/20 Therapeutic Interventions Therapeutic Interventions Aquatic Therapy,Balance Training,Canalithic Repositioning,Gait Training, Home Exercise Program,Manual Therapy,Neuromuscular Re- education,Patient/Caregiver Education,Self-Care/Home Management,Soft Tissue Mobilization,Taping, Therapeutic Activities, Therapeutic Exercises Modalities Cold Pack/Ice Massage,Electric Stimulation,Hot Packs, Ultrasound Next Visit Focus/Plan Next Note Type Treatment Note Next Visit Plan Keep encouraging pt to perform tasks without assist-- adjusting bike seat, putting her own feet on the pedals, getting on and off plinth without asst. Review HEP, add sit to stands with UE support, keep working on 6MWT, balance
--- NOTE | 2020-10-07 12:51 | PT.OTN ---
Current Diagnoses Unilateral primary osteoarthritis, left knee (10/07/20) Physical Therapy Treatment Note PT-OP-A Visit Information Start: 07/05/20 07:34 Freq: Status: Active Protocol: Document 10/07/20 12:00 DCW (Rec: 10/07/20 12:51 DCW [id number]) Out-Patient Physical Therapy Visit Information Visit Information Visit Type Treatment Note Visit Start Time 12:00 Visit Stop Time 12:45 Total Visit Minutes 45 Visit Number 21 Number of WEIGH BOSS Visits 0 Evaluation Information Evaluation Date 07/05/20 PT-OP-B Current Condition Start: 07/05/20 07:34 Freq: Status: Active Protocol: Document 07/19/20 15:20 DCW (Rec: 07/19/20 15:45 DCW [id number]) Current Condition History of Current Condition Onset Date 10 years Current Complaints Post-op L TKA History of Current Condition Pt returns to therapy today following L TKA on 07/10/20. Pt reports she is in just as much pain today as I was the day after surgery. Pt performs limited ambulation around her home, basically just between her bed, chair, and bathroom. Pt reports she has been using a CPM machine, and is able to get up to 30 degrees flexion. Pt reports pain is about a 6/10 at rest, but is more like an 8/10 if she moves her leg. Pt is also reporting she has had a temperature this past week, hovering around 99 degrees, which is up from her usual temp of 97.6. Pt has been struggling with mobility secondary to pain. Personal Factors Other Personal Factors That May Effect Pt continues to be very self- Therapy/Recovery restrictive due to pain and, more frequently, fear of pain. PT-OP-C Subjective Start: 07/05/20 07:34 Freq: Status: Active Protocol: Document 10/07/20 12:00 DCW (Rec: 10/07/20 12:51 DCW [id number]) OP-PT Subjective Patient Comments Patient Comments My left knee feels fine. My left ankle hurts, I don't know why. I feel a little shaky today, PT-OP-E Functional Tests Start: 07/19/20 15:45 Freq: Status: Active Protocol: Document 07/19/20 15:20 DCW (Rec: 07/19/20 15:59 DCW [id number]) Functional Tests 2 Minute Walk Test Distance 16 Device Used FWW Comments Stopped at 1'12 PT-OP-G Mobility & Gait Start: 07/05/20 07:34 Freq: Status: Active Protocol: Document 07/19/20 15:20 DCW (Rec: 07/19/20 15:59 DCW [id number]) OP Gait Assessment Gait Gait Assistance Required: Minimum Assistance Distance (Feet) 16 Assistive Devices Assistive Device Front Wheeled Walker Gait Deviations General Gait Pattern Antalgic,Decreased Stride Length,Decreased Feet Clearance,Flexed Trunk,Narrow Based Gait,Step-to Gait Factors Limiting Gait Function Factors Limiting Gait Function Decreased Activity Tolerance, Decreased Strength,Limited Range of Motion,Pain,Poor Safety Awareness PT-OP-J Posture/Palpation/Skin Start: 07/05/20 07:34 Freq: Status: Active Protocol: Document 07/19/20 15:20 DCW (Rec: 07/19/20 15:45 DCW [id number]) Skin Assessment Circumference Measurement 3 Location 10 cm inferior to L Joint Line Measurement (Centimeters) 45.1 Comments 10 cm inerior to R Joint Line = 40.1 2 Location 10 cm superior to L Joint Line Measurement (Centimeters) 57.7 Comments 10 cm superior to R Joint Line = 48.0 1 Location L Joint Line Measurement (Centimeters) 50.4 Comments R Joint line = 45.3 PT-OP-K Range of Motion Start: 07/05/20 07:34 Freq: Status: Active Protocol: Document 07/19/20 15:20 DCW (Rec: 07/19/20 15:45 DCW [id number]) Knee Goniometric Range of Motion Knee Left Knee ROM WFL No Patient Position Sitting Flexion Active (degrees) 71 Extension Active (degrees) 15 PT-OP-M Strength Start: 07/05/20 07:34 Freq: Status: Active Protocol: Document 07/19/20 15:20 DCW (Rec: 07/19/20 15:45 DCW [id number]) Hip Strength Hip Manual Muscle Testing Left Flexion (L2) 4- Good- Abduction 3+ Fair+ Knee Strength Knee Manual Muscle Testing Right Flexion (S2) 4 Good Extension (L3) 4 Good Left Flexion (S2) 3- Fair- Extension (L3) 3- Fair- PT-OP-Q Treatments Start: 07/05/20 07:34 Freq: Status: Active Protocol: Document 10/07/20 12:00 DCW (Rec: 10/07/20 12:51 DCW [id number]) Cardio Equipment Recumbent Bicycle Duration (Minutes) 6 Resistance 1 Seat Position 5 Gym Equipment Shuttle Recovery Unilateral Squats Resistance 37# Shuttle Recovery Platform Stable Bilateral Squats Resistance 75# Shuttle Recovery Platform Stable Therapeutic Exercises Standing Exercises TKE Standing Exercise Name TKE Side left Resistance Lv 2 Equipment Used T-band step flexion stretch Standing Exercise Name Step stretch Side left Hamstring Curls Standing Exercise Name Standing HS curls Side bilateral Resistance 5# Equipment Used // bars Manual Therapy Treatment Joint Mobilizations 2 Joint Patella mobs Direction Inf/Sup Grade III PT-OP-T Assessment and Plan Start: 07/05/20 07:34 Freq: Status: Active Protocol: Document 10/07/20 12:00 DCW (Rec: 10/07/20 12:51 DCW [id number]) Physical Therapy Assessment Impairments Impairments Activity Tolerance,Balance, Functional Activities, Functional Mobility,Gait, Integument,Pain,Posture,ROM, Soft Tissue Mobility,Strength, Transfers Other Impairments Personal factors include self- limiting behavior, ongoing use of opioids, assists pt for all tasks despite her demonstrating ability to perform transfers and bed mobility without assist today, obesity. Body systems affected include neuromuscular , musculoskeletal and psychosocial. Her functional presentation is stable to evolving. Goals Six Impairment 6MWT Short Term Goal (STG) Pt will gait train at least 1000 feet in 6 minutes with LRAD to improve community ambulation by 11/06/2020. 08/28/2020: Pt gait trains 563 feet in 6 minutes STG Duration 11/06/2020 5 Slash Trimmer Goal (LTG) Pt will present with LE functional index score to reflect no more than 30% impairment to allow improved functional I by 11/06/2020. 08/28/2020: LEF score is 66.25 % LTG Duration 11/06/2020 Four Slash Trimmer Goal (LTG) Pt will present with improved left knee AROM to at least 3- 115 deg to improve functional transfers by 11/06/2020. 08/28/2020: AROM left knee 5- 100 deg today. LTG Duration 11/06/2020 Three Slash Trimmer Goal (LTG) Pt will by able to perform at least 10 reps sit to stand with UE support in 30 sec to improve safety with transfers at home by 11/06/2020. 08/28/2020: Pt cannot perform without UE support (self-limit /does not make good effort). 4 reps and pt stops, self- limits LTG Duration 11/06/2020 Two Correction Goal (LTG) Pt will be able to get in and OOB I (on plinth, into supine and back off plinth) with I to improve bed mobility at home 08/28/2020: Goal met, though pt states that she cannot do it and requires encouragement. LTG Duration 09/18/20--MET One Short Term Goal (STG) Pt will perform progressive HEP with handouts to improve ROM, flexibility, strength, sit to stands, balance and gait. 08/28/2020: Review HEP with primary therapist next treatment date STG Duration 11/06/2020 Assessment Summary Assessment Pt did well today, but complained a lot regarding her low back pain, which limited her supine<->sit mobility more than usual. Pt still needs verbal cues to flex her left knee more than 70-80 degrees during exercise. Physical Therapy Plan Frequency and Duration Frequency of Treatment 2x/Week Duration of Treatment 8 weeks Plan of Care Start Date 08/28/20 Plan of Care End Date 11/06/20 Therapeutic Interventions Therapeutic Interventions Aquatic Therapy,Balance Training,Canalithic Repositioning,Gait Training, Home Exercise Program,Manual Therapy,Neuromuscular Re- education,Patient/Caregiver Education,Self-Care/Home Management,Soft Tissue Mobilization,Taping, Therapeutic Activities, Therapeutic Exercises Modalities Cold Pack/Ice Massage,Electric Stimulation,Hot Packs, Ultrasound Next Visit Focus/Plan Next Note Type Treatment Note Next Visit Plan Keep encouraging pt to perform tasks without assist-- adjusting bike seat, putting her own feet on the pedals, getting on and off plinth without asst. Review HEP, add sit to stands with UE support, keep working on 6MWT, balance
--- NOTE | 2020-10-10 16:00 | PT.OTN ---
Current Diagnoses Unilateral primary osteoarthritis, left knee (10/10/20) Physical Therapy Treatment Note PT-OP-A Visit Information Start: 07/05/20 07:34 Freq: Status: Active Protocol: Document 10/10/20 15:15 DCW (Rec: 10/10/20 16:00 DCW [id number]) Out-Patient Physical Therapy Visit Information Visit Information Visit Type Treatment Note Visit Start Time 15:15 Visit Stop Time 16:00 Total Visit Minutes 45 Visit Number 22 Number of WOOD CARVING LATHE OPERATOR Visits 0 Evaluation Information Evaluation Date 07/05/20 PT-OP-B Current Condition Start: 07/05/20 07:34 Freq: Status: Active Protocol: Document 07/19/20 15:20 DCW (Rec: 07/19/20 15:45 DCW [id number]) Current Condition History of Current Condition Onset Date 10 years Current Complaints Post-op L TKA History of Current Condition Pt returns to therapy today following L TKA on 07/10/20. Pt reports she is in just as much pain today as I was the day after surgery. Pt performs limited ambulation around her home, basically just between her bed, chair, and bathroom. Pt reports she has been using a CPM machine, and is able to get up to 30 degrees flexion. Pt reports pain is about a 6/10 at rest, but is more like an 8/10 if she moves her leg. Pt is also reporting she has had a temperature this past week, hovering around 99 degrees, which is up from her usual temp of 97.6. Pt has been struggling with mobility secondary to pain. Personal Factors Other Personal Factors That May Effect Pt continues to be very self- Therapy/Recovery restrictive due to pain and, more frequently, fear of pain. PT-OP-C Subjective Start: 07/05/20 07:34 Freq: Status: Active Protocol: Document 10/10/20 15:15 DCW (Rec: 10/10/20 16:00 DCW [id number]) OP-PT Subjective Patient Comments Patient Comments I'm going forward, no problems. I actually like my new knee. PT-OP-E Functional Tests Start: 07/19/20 15:45 Freq: Status: Active Protocol: Document 07/19/20 15:20 DCW (Rec: 07/19/20 15:59 DCW [id number]) Functional Tests 2 Minute Walk Test Distance 16 Device Used FWW Comments Stopped at 1'12 PT-OP-G Mobility & Gait Start: 07/05/20 07:34 Freq: Status: Active Protocol: Document 07/19/20 15:20 DCW (Rec: 07/19/20 15:59 DCW [id number]) OP Gait Assessment Gait Gait Assistance Required: Minimum Assistance Distance (Feet) 16 Assistive Devices Assistive Device Front Wheeled Walker Gait Deviations General Gait Pattern Antalgic,Decreased Stride Length,Decreased Feet Clearance,Flexed Trunk,Narrow Based Gait,Step-to Gait Factors Limiting Gait Function Factors Limiting Gait Function Decreased Activity Tolerance, Decreased Strength,Limited Range of Motion,Pain,Poor Safety Awareness PT-OP-J Posture/Palpation/Skin Start: 07/05/20 07:34 Freq: Status: Active Protocol: Document 07/19/20 15:20 DCW (Rec: 07/19/20 15:45 DCW [id number]) Skin Assessment Circumference Measurement 3 Location 10 cm inferior to L Joint Line Measurement (Centimeters) 45.1 Comments 10 cm inerior to R Joint Line = 40.1 2 Location 10 cm superior to L Joint Line Measurement (Centimeters) 57.7 Comments 10 cm superior to R Joint Line = 48.0 1 Location L Joint Line Measurement (Centimeters) 50.4 Comments R Joint line = 45.3 PT-OP-K Range of Motion Start: 07/05/20 07:34 Freq: Status: Active Protocol: Document 07/19/20 15:20 DCW (Rec: 07/19/20 15:45 DCW [id number]) Knee Goniometric Range of Motion Knee Left Knee ROM WFL No Patient Position Sitting Flexion Active (degrees) 71 Extension Active (degrees) 15 PT-OP-M Strength Start: 07/05/20 07:34 Freq: Status: Active Protocol: Document 07/19/20 15:20 DCW (Rec: 07/19/20 15:45 DCW [id number]) Hip Strength Hip Manual Muscle Testing Left Flexion (L2) 4- Good- Abduction 3+ Fair+ Knee Strength Knee Manual Muscle Testing Right Flexion (S2) 4 Good Extension (L3) 4 Good Left Flexion (S2) 3- Fair- Extension (L3) 3- Fair- PT-OP-Q Treatments Start: 08/28/20 07:34 Freq: Status: Active Protocol: Document 10/10/20 15:15 DCW (Rec: 10/10/20 16:00 DCW [id number]) Cardio Equipment Recumbent Bicycle Duration (Minutes) 6 Resistance 2 Seat Position 5 Gym Equipment Shuttle Recovery Unilateral Squats Resistance 37# Shuttle Recovery Platform Stable Bilateral Squats Resistance 75# Shuttle Recovery Platform Stable Therapeutic Exercises Standing Exercises step flexion stretch Standing Exercise Name Step stretch Side left Other Exercises Resisted Side-stepping Other Exercise Name Sidestepping, Forward, Backward Resistance Yellow Equipment Used T-band Manual Therapy Treatment Joint Mobilizations 2 Joint Patella mobs Direction Inf/Sup Grade III PT-OP-T Assessment and Plan Start: 07/05/20 07:34 Freq: Status: Active Protocol: Document 10/10/20 15:15 DCW (Rec: 10/10/20 16:00 DCW [id number]) Physical Therapy Assessment Impairments Impairments Activity Tolerance,Balance, Functional Activities, Functional Mobility,Gait, Integument,Pain,Posture,ROM, Soft Tissue Mobility,Strength, Transfers Other Impairments Personal factors include self- limiting behavior, ongoing use of opioids, assists pt for all tasks despite her demonstrating ability to perform transfers and bed mobility without assist today, obesity. Body systems affected include neuromuscular , musculoskeletal and psychosocial. Her functional presentation is stable to evolving. Goals Six Impairment 6MWT Short Term Goal (STG) Pt will gait train at least 1000 feet in 6 minutes with LRAD to improve community ambulation by 11/06/2020. 08/28/2020: Pt gait trains 563 feet in 6 minutes STG Duration 11/06/2020 5 Waste Reduction Coordinator Goal (LTG) Pt will present with LE functional index score to reflect no more than 30% impairment to allow improved functional I by 11/06/2020. 08/28/2020: LEF score is 66.25 % LTG Duration 11/06/2020 Four Waste Reduction Coordinator Goal (LTG) Pt will present with improved left knee AROM to at least 3- 115 deg to improve functional transfers by 11/06/2020. 08/28/2020: AROM left knee 5- 100 deg today. LTG Duration 11/06/2020 Three Waste Reduction Coordinator Goal (LTG) Pt will by able to perform at least 10 reps sit to stand with UE support in 30 sec to improve safety with transfers at home by 11/06/2020. 08/28/2020: Pt cannot perform without UE support (self-limit /does not make good effort). 4 reps and pt stops, self- limits LTG Duration 11/06/2020 Two Waste Reduction Coordinator Goal (LTG) Pt will be able to get in and OOB I (on plinth, into supine and back off plinth) with I to improve bed mobility at home 08/28/2020: Goal met, though pt states that she cannot do it and requires encouragement. LTG Duration 09/18/20--MET One Short Term Goal (STG) Pt will perform progressive HEP with handouts to improve ROM, flexibility, strength, sit to stands, balance and gait. 08/28/2020: Review HEP with primary therapist next treatment date STG Duration 11/06/2020 Assessment Summary Assessment Back pain was less limiting today than earlier in the week , pt feels that her left knee is actually really doing well, her back and right leg are more limiting than the knee. Physical Therapy Plan Frequency and Duration Frequency of Treatment 2x/Week Duration of Treatment 8 weeks Plan of Care Start Date 08/28/20 Plan of Care End Date 11/06/20 Therapeutic Interventions Therapeutic Interventions Aquatic Therapy,Balance Training,Canalithic Repositioning,Gait Training, Home Exercise Program,Manual Therapy,Neuromuscular Re- education,Patient/Caregiver Education,Self-Care/Home Management,Soft Tissue Mobilization,Taping, Therapeutic Activities, Therapeutic Exercises Modalities Cold Pack/Ice Massage,Electric Stimulation,Hot Packs, Ultrasound Next Visit Focus/Plan Next Note Type Treatment Note Next Visit Plan Keep encouraging pt to perform tasks without assist-- adjusting bike seat, putting her own feet on the pedals, getting on and off plinth without asst. Review HEP, add sit to stands with UE support, keep working on 6MWT, balance
--- NOTE | 2020-10-24 16:04 | PT.OTN ---
Current Diagnoses Unilateral primary osteoarthritis, left knee (10/24/20) Physical Therapy Treatment Note PT-OP-A Visit Information Start: 07/05/20 07:34 Freq: Status: Active Protocol: Document 10/24/20 15:15 DCW (Rec: 10/24/20 16:04 DCW [id number]) Out-Patient Physical Therapy Visit Information Visit Information Visit Type Treatment Note Visit Start Time 15:15 Visit Stop Time 16:00 Total Visit Minutes 45 Visit Number 23 Number of INVESTMENT ANALYST Visits 0 Evaluation Information Evaluation Date 07/05/20 PT-OP-B Current Condition Start: 07/05/20 07:34 Freq: Status: Active Protocol: Document 07/19/20 15:20 DCW (Rec: 07/19/20 15:45 DCW [id number]) Current Condition History of Current Condition Onset Date 10 years Current Complaints Post-op L TKA History of Current Condition Pt returns to therapy today following L TKA on 07/10/20. Pt reports she is in just as much pain today as I was the day after surgery. Pt performs limited ambulation around her home, basically just between her bed, chair, and bathroom. Pt reports she has been using a CPM machine, and is able to get up to 30 degrees flexion. Pt reports pain is about a 6/10 at rest, but is more like an 8/10 if she moves her leg. Pt is also reporting she has had a temperature this past week, hovering around 99 degrees, which is up from her usual temp of 97.6. Pt has been struggling with mobility secondary to pain. Personal Factors Other Personal Factors That May Effect Pt continues to be very self- Therapy/Recovery restrictive due to pain and, more frequently, fear of pain. PT-OP-C Subjective Start: 07/05/20 07:34 Freq: Status: Active Protocol: Document 10/24/20 15:15 DCW (Rec: 10/24/20 16:04 DCW [id number]) OP-PT Subjective Patient Comments Patient Comments Pt notes she had been doing well, but yesterday my back was really bothering me. Pt still doing her recumbent bike at home, and using her home ballet bar. Pt saw Dr Bronson last Wednesday, who told her to sign up for six more weeks of PT to work more on her right side secondary to her prior CVA. PT-OP-E Functional Tests Start: 07/19/20 15:45 Freq: Status: Active Protocol: Document 07/19/20 15:20 DCW (Rec: 07/19/20 15:59 DCW [id number]) Functional Tests 2 Minute Walk Test Distance 16 Device Used FWW Comments Stopped at 1'12 PT-OP-G Mobility & Gait Start: 07/05/20 07:34 Freq: Status: Active Protocol: Document 07/19/20 15:20 DCW (Rec: 07/19/20 15:59 DCW [id number]) OP Gait Assessment Gait Gait Assistance Required: Minimum Assistance Distance (Feet) 16 Assistive Devices Assistive Device Front Wheeled Walker Gait Deviations General Gait Pattern Antalgic,Decreased Stride Length,Decreased Feet Clearance,Flexed Trunk,Narrow Based Gait,Step-to Gait Factors Limiting Gait Function Factors Limiting Gait Function Decreased Activity Tolerance, Decreased Strength,Limited Range of Motion,Pain,Poor Safety Awareness PT-OP-J Posture/Palpation/Skin Start: 07/05/20 07:34 Freq: Status: Active Protocol: Document 07/19/20 15:20 DCW (Rec: 07/19/20 15:45 DCW [id number]) Skin Assessment Circumference Measurement 3 Location 10 cm inferior to L Joint Line Measurement (Centimeters) 45.1 Comments 10 cm inerior to R Joint Line = 40.1 2 Location 10 cm superior to L Joint Line Measurement (Centimeters) 57.7 Comments 10 cm superior to R Joint Line = 48.0 1 Location L Joint Line Measurement (Centimeters) 50.4 Comments R Joint line = 45.3 PT-OP-K Range of Motion Start: 07/05/20 07:34 Freq: Status: Active Protocol: Document 07/19/20 15:20 DCW (Rec: 07/19/20 15:45 DCW [id number]) Knee Goniometric Range of Motion Knee Left Knee ROM WFL No Patient Position Sitting Flexion Active (degrees) 71 Extension Active (degrees) 15 PT-OP-M Strength Start: 07/05/20 07:34 Freq: Status: Active Protocol: Document 07/19/20 15:20 DCW (Rec: 07/19/20 15:45 DCW [id number]) Hip Strength Hip Manual Muscle Testing Left Flexion (L2) 4- Good- Abduction 3+ Fair+ Knee Strength Knee Manual Muscle Testing Right Flexion (S2) 4 Good Extension (L3) 4 Good Left Flexion (S2) 3- Fair- Extension (L3) 3- Fair- PT-OP-Q Treatments Start: 07/05/20 07:34 Freq: Status: Active Protocol: Document 10/24/20 15:15 DCW (Rec: 10/24/20 16:04 DCW [id number]) Cardio Equipment Recumbent Bicycle Duration (Minutes) 6 Resistance 2 Seat Position 5 Gym Equipment Shuttle Recovery Unilateral Squats Resistance 37# Shuttle Recovery Platform Stable Bilateral Squats Resistance 75# Shuttle Recovery Platform Stable Therapeutic Exercises Other Exercises Resisted Side-stepping Other Exercise Name Sidestepping, Forward, Backward Resistance Yellow Equipment Used T-band Manual Therapy Treatment Joint Mobilizations 2 Joint Patella mobs Direction Inf/Sup Grade III 1 Joint Knee Direction P->A Grade II PT-OP-T Assessment and Plan Start: 07/05/20 07:34 Freq: Status: Active Protocol: Document 10/24/20 15:15 DCW (Rec: 10/24/20 16:04 DCW [id number]) Physical Therapy Assessment Impairments Impairments Activity Tolerance,Balance, Functional Activities, Functional Mobility,Gait, Integument,Pain,Posture,ROM, Soft Tissue Mobility,Strength, Transfers Other Impairments Personal factors include self- limiting behavior, ongoing use of opioids, assists pt for all tasks despite her demonstrating ability to perform transfers and bed mobility without assist today, obesity. Body systems affected include neuromuscular , musculoskeletal and psychosocial. Her functional presentation is stable to evolving. Goals Six Impairment 6MWT Short Term Goal (STG) Pt will gait train at least 1000 feet in 6 minutes with LRAD to improve community ambulation by 11/06/2020. 08/28/2020: Pt gait trains 563 feet in 6 minutes STG Duration 11/06/2020 5 Senior Care Goal (LTG) Pt will present with LE functional index score to reflect no more than 30% impairment to allow improved functional I by 11/06/2020. 08/28/2020: LEF score is 66.25 % LTG Duration 11/06/2020 Four Senior Care Goal (LTG) Pt will present with improved left knee AROM to at least 3- 115 deg to improve functional transfers by 11/06/2020. 08/28/2020: AROM left knee 5- 100 deg today. LTG Duration 11/06/2020 Three Product Development Worker Goal (LTG) Pt will by able to perform at least 10 reps sit to stand with UE support in 30 sec to improve safety with transfers at home by 11/06/2020. 08/28/2020: Pt cannot perform without UE support (self-limit /does not make good effort). 4 reps and pt stops, self- limits LTG Duration 11/06/2020 Two Senior Care Goal (LTG) Pt will be able to get in and OOB I (on plinth, into supine and back off plinth) with I to improve bed mobility at home 08/28/2020: Goal met, though pt states that she cannot do it and requires encouragement. LTG Duration 09/18/20--MET One Short Term Goal (STG) Pt will perform progressive HEP with handouts to improve ROM, flexibility, strength, sit to stands, balance and gait. 08/28/2020: Review HEP with primary therapist next treatment date STG Duration 11/06/2020 Assessment Summary Assessment Pt patellar mobility improved today, does note some mild pain at end-range patellar ROM . Pt having much less back pain today with semi-reclined positioning Physical Therapy Plan Frequency and Duration Frequency of Treatment 2x/Week Duration of Treatment 8 weeks Plan of Care Start Date 08/28/20 Plan of Care End Date 11/06/20 Therapeutic Interventions Therapeutic Interventions Aquatic Therapy,Balance Training,Canalithic Repositioning,Gait Training, Home Exercise Program,Manual Therapy,Neuromuscular Re- education,Patient/Caregiver Education,Self-Care/Home Management,Soft Tissue Mobilization,Taping, Therapeutic Activities, Therapeutic Exercises Modalities Cold Pack/Ice Massage,Electric Stimulation,Hot Packs, Ultrasound Next Visit Focus/Plan Next Note Type Treatment Note Next Visit Plan Keep encouraging pt to perform tasks without assist-- adjusting bike seat, putting her own feet on the pedals, getting on and off plinth without asst. Review HEP, add sit to stands with UE support, keep working on 6MWT, balance
--- NOTE | 2020-10-28 16:04 | PT.OTN ---
Current Diagnoses Unilateral primary osteoarthritis, left knee (10/28/20) Physical Therapy Treatment Note PT-OP-A Visit Information Start: 07/05/20 07:34 Freq: Status: Active Protocol: Document 10/28/20 15:17 DCW (Rec: 10/28/20 16:04 DCW [id number]) Out-Patient Physical Therapy Visit Information Visit Information Visit Type Treatment Note Visit Start Time 15:17 Visit Stop Time 16:00 Total Visit Minutes 43 Visit Number 24 Number of WET TRIMMER Visits 0 Evaluation Information Evaluation Date 07/05/20 PT-OP-B Current Condition Start: 07/05/20 07:34 Freq: Status: Active Protocol: Document 07/19/20 15:20 DCW (Rec: 07/19/20 15:45 DCW [id number]) Current Condition History of Current Condition Onset Date 10 years Current Complaints Post-op L TKA History of Current Condition Pt returns to therapy today following L TKA on 07/10/20. Pt reports she is in just as much pain today as I was the day after surgery. Pt performs limited ambulation around her home, basically just between her bed, chair, and bathroom. Pt reports she has been using a CPM machine, and is able to get up to 30 degrees flexion. Pt reports pain is about a 6/10 at rest, but is more like an 8/10 if she moves her leg. Pt is also reporting she has had a temperature this past week, hovering around 99 degrees, which is up from her usual temp of 97.6. Pt has been struggling with mobility secondary to pain. Personal Factors Other Personal Factors That May Effect Pt continues to be very self- Therapy/Recovery restrictive due to pain and, more frequently, fear of pain. PT-OP-C Subjective Start: 07/05/20 07:34 Freq: Status: Active Protocol: Document 10/28/20 15:17 DCW (Rec: 10/28/20 16:04 DCW [id number]) OP-PT Subjective Patient Comments Patient Comments I feel like my legs are getting weaker. I just feel like they aren't working right . I can kind of hobble without my walker, but everything just feels weak. PT-OP-E Functional Tests Start: 07/19/20 15:45 Freq: Status: Active Protocol: Document 07/19/20 15:20 DCW (Rec: 07/19/20 15:59 DCW [id number]) Functional Tests 2 Minute Walk Test Distance 16 Device Used FWW Comments Stopped at 1'12 PT-OP-G Mobility & Gait Start: 07/05/20 07:34 Freq: Status: Active Protocol: Document 07/19/20 15:20 DCW (Rec: 07/19/20 15:59 DCW [id number]) OP Gait Assessment Gait Gait Assistance Required: Minimum Assistance Distance (Feet) 16 Assistive Devices Assistive Device Front Wheeled Walker Gait Deviations General Gait Pattern Antalgic,Decreased Stride Length,Decreased Feet Clearance,Flexed Trunk,Narrow Based Gait,Step-to Gait Factors Limiting Gait Function Factors Limiting Gait Function Decreased Activity Tolerance, Decreased Strength,Limited Range of Motion,Pain,Poor Safety Awareness PT-OP-J Posture/Palpation/Skin Start: 07/05/20 07:34 Freq: Status: Active Protocol: Document 07/19/20 15:20 DCW (Rec: 07/19/20 15:45 DCW [id number]) Skin Assessment Circumference Measurement 3 Location 10 cm inferior to L Joint Line Measurement (Centimeters) 45.1 Comments 10 cm inerior to R Joint Line = 40.1 2 Location 10 cm superior to L Joint Line Measurement (Centimeters) 57.7 Comments 10 cm superior to R Joint Line = 48.0 1 Location L Joint Line Measurement (Centimeters) 50.4 Comments R Joint line = 45.3 PT-OP-K Range of Motion Start: 07/05/20 07:34 Freq: Status: Active Protocol: Document 07/19/20 15:20 DCW (Rec: 07/19/20 15:45 DCW [id number]) Knee Goniometric Range of Motion Knee Left Knee ROM WFL No Patient Position Sitting Flexion Active (degrees) 71 Extension Active (degrees) 15 PT-OP-M Strength Start: 07/05/20 07:34 Freq: Status: Active Protocol: Document 07/19/20 15:20 DCW (Rec: 07/19/20 15:45 DCW [id number]) Hip Strength Hip Manual Muscle Testing Left Flexion (L2) 4- Good- Abduction 3+ Fair+ Knee Strength Knee Manual Muscle Testing Right Flexion (S2) 4 Good Extension (L3) 4 Good Left Flexion (S2) 3- Fair- Extension (L3) 3- Fair- PT-OP-Q Treatments Start: 07/05/20 07:34 Freq: Status: Active Protocol: Document 10/28/20 15:17 DCW (Rec: 10/28/20 16:04 DCW [id number]) Cardio Equipment Recumbent Bicycle Duration (Minutes) 6 Resistance 3 Seat Position 5 Gym Equipment Shuttle Recovery Unilateral Squats Details Bilateral Resistance 37# Shuttle Recovery Platform Stable Bilateral Squats Resistance 75# Shuttle Recovery Platform Stable Therapeutic Exercises Standing Exercises step flexion stretch Standing Exercise Name Step stretch Side left marching Standing Exercise Name Marching Side bilateral Resistance 5# Squats Standing Exercise Name Sit<->Stand Step-ups Standing Exercise Name Toe-taps Side bilateral Resistance 5# Equipment Used 6 step Manual Therapy Treatment Joint Mobilizations 2 Joint Patella mobs Direction Inf/Sup Grade III PT-OP-T Assessment and Plan Start: 07/05/20 07:34 Freq: Status: Active Protocol: Document 10/28/20 15:17 DCW (Rec: 10/28/20 16:04 DCW [id number]) Physical Therapy Assessment Impairments Impairments Activity Tolerance,Balance, Functional Activities, Functional Mobility,Gait, Integument,Pain,Posture,ROM, Soft Tissue Mobility,Strength, Transfers Other Impairments Personal factors include self- limiting behavior, ongoing use of opioids, assists pt for all tasks despite her demonstrating ability to perform transfers and bed mobility without assist today, obesity. Body systems affected include neuromuscular , musculoskeletal and psychosocial. Her functional presentation is stable to evolving. Goals Six Impairment 6MWT Short Term Goal (STG) Pt will gait train at least 1000 feet in 6 minutes with LRAD to improve community ambulation by 11/06/2020. 08/28/2020: Pt gait trains 563 feet in 6 minutes STG Duration 11/06/2020 5 Intermediate Goal (LTG) Pt will present with LE functional index score to reflect no more than 30% impairment to allow improved functional I by 11/06/2020. 08/28/2020: LEF score is 66.25 % LTG Duration 11/06/2020 Four Intermediate Goal (LTG) Pt will present with improved left knee AROM to at least 3- 115 deg to improve functional transfers by 11/06/2020. 08/28/2020: AROM left knee 5- 100 deg today. LTG Duration 11/06/2020 Three Enrollment Management Coordinator Goal (LTG) Pt will by able to perform at least 10 reps sit to stand with UE support in 30 sec to improve safety with transfers at home by 11/06/2020. 08/28/2020: Pt cannot perform without UE support (self-limit /does not make good effort). 4 reps and pt stops, self- limits LTG Duration 11/06/2020 Two Intermediate Goal (LTG) Pt will be able to get in and OOB I (on plinth, into supine and back off plinth) with I to improve bed mobility at home 08/28/2020: Goal met, though pt states that she cannot do it and requires encouragement. LTG Duration 09/18/20--MET One Short Term Goal (STG) Pt will perform progressive HEP with handouts to improve ROM, flexibility, strength, sit to stands, balance and gait. 08/28/2020: Review HEP with primary therapist next treatment date STG Duration 11/06/2020 Assessment Summary Assessment Pt doing fairly well today with strengthening, however still self-limiting in some areas. Fatigues quickly today. Physical Therapy Plan Frequency and Duration Frequency of Treatment 2x/Week Duration of Treatment 8 weeks Plan of Care Start Date 08/28/20 Plan of Care End Date 11/06/20 Therapeutic Interventions Therapeutic Interventions Aquatic Therapy,Balance Training,Canalithic Repositioning,Gait Training, Home Exercise Program,Manual Therapy,Neuromuscular Re- education,Patient/Caregiver Education,Self-Care/Home Management,Soft Tissue Mobilization,Taping, Therapeutic Activities, Therapeutic Exercises Modalities Cold Pack/Ice Massage,Electric Stimulation,Hot Packs, Ultrasound Next Visit Focus/Plan Next Note Type Treatment Note Next Visit Plan Keep encouraging pt to perform tasks without assist-- adjusting bike seat, putting her own feet on the pedals, getting on and off plinth without asst. Review HEP, add sit to stands with UE support, keep working on 6MWT, balance
--- NOTE | 2020-10-30 15:11 | PT.OTN ---
Current Diagnoses Unilateral primary osteoarthritis, left knee (10/30/20) Physical Therapy Treatment Note PT-OP-A Visit Information Start: 07/05/20 07:34 Freq: Status: Active Protocol: Document 10/30/20 14:30 DCW (Rec: 10/30/20 15:11 DCW [id number]) Out-Patient Physical Therapy Visit Information Visit Information Visit Type Treatment Note Visit Start Time 14:30 Visit Stop Time 15:15 Total Visit Minutes 45 Visit Number 25 Number of CONTACT MANAGER Visits 0 Evaluation Information Evaluation Date 07/05/20 PT-OP-B Current Condition Start: 07/05/20 07:34 Freq: Status: Active Protocol: Document 07/19/20 15:20 DCW (Rec: 07/19/20 15:45 DCW [id number]) Current Condition History of Current Condition Onset Date 10 years Current Complaints Post-op L TKA History of Current Condition Pt returns to therapy today following L TKA on 07/10/20. Pt reports she is in just as much pain today as I was the day after surgery. Pt performs limited ambulation around her home, basically just between her bed, chair, and bathroom. Pt reports she has been using a CPM machine, and is able to get up to 30 degrees flexion. Pt reports pain is about a 6/10 at rest, but is more like an 8/10 if she moves her leg. Pt is also reporting she has had a temperature this past week, hovering around 99 degrees, which is up from her usual temp of 97.6. Pt has been struggling with mobility secondary to pain. Personal Factors Other Personal Factors That May Effect Pt continues to be very self- Therapy/Recovery restrictive due to pain and, more frequently, fear of pain. PT-OP-C Subjective Start: 07/05/20 07:34 Freq: Status: Active Protocol: Document 10/30/20 14:30 DCW (Rec: 10/30/20 15:11 DCW [id number]) OP-PT Subjective Patient Comments Patient Comments Pt doing well today, feeling more optimistic recently. PT-OP-E Functional Tests Start: 07/19/20 15:45 Freq: Status: Active Protocol: Document 07/19/20 15:20 DCW (Rec: 07/19/20 15:59 DCW [id number]) Functional Tests 2 Minute Walk Test Distance 16 Device Used FWW Comments Stopped at 1'12 PT-OP-G Mobility & Gait Start: 07/05/20 07:34 Freq: Status: Active Protocol: Document 07/19/20 15:20 DCW (Rec: 07/19/20 15:59 DCW [id number]) OP Gait Assessment Gait Gait Assistance Required: Minimum Assistance Distance (Feet) 16 Assistive Devices Assistive Device Front Wheeled Walker Gait Deviations General Gait Pattern Antalgic,Decreased Stride Length,Decreased Feet Clearance,Flexed Trunk,Narrow Based Gait,Step-to Gait Factors Limiting Gait Function Factors Limiting Gait Function Decreased Activity Tolerance, Decreased Strength,Limited Range of Motion,Pain,Poor Safety Awareness PT-OP-J Posture/Palpation/Skin Start: 07/05/20 07:34 Freq: Status: Active Protocol: Document 07/19/20 15:20 DCW (Rec: 07/19/20 15:45 DCW [id number]) Skin Assessment Circumference Measurement 3 Location 10 cm inferior to L Joint Line Measurement (Centimeters) 45.1 Comments 10 cm inerior to R Joint Line = 40.1 2 Location 10 cm superior to L Joint Line Measurement (Centimeters) 57.7 Comments 10 cm superior to R Joint Line = 48.0 1 Location L Joint Line Measurement (Centimeters) 50.4 Comments R Joint line = 45.3 PT-OP-K Range of Motion Start: 07/05/20 07:34 Freq: Status: Active Protocol: Document 07/19/20 15:20 DCW (Rec: 07/19/20 15:45 DCW [id number]) Knee Goniometric Range of Motion Knee Left Knee ROM WFL No Patient Position Sitting Flexion Active (degrees) 71 Extension Active (degrees) 15 PT-OP-M Strength Start: 07/05/20 07:34 Freq: Status: Active Protocol: Document 07/19/20 15:20 DCW (Rec: 07/19/20 15:45 DCW [id number]) Hip Strength Hip Manual Muscle Testing Left Flexion (L2) 4- Good- Abduction 3+ Fair+ Knee Strength Knee Manual Muscle Testing Right Flexion (S2) 4 Good Extension (L3) 4 Good Left Flexion (S2) 3- Fair- Extension (L3) 3- Fair- PT-OP-Q Treatments Start: 07/05/20 07:34 Freq: Status: Active Protocol: Document 10/30/20 14:30 DCW (Rec: 10/30/20 15:11 DCW [id number]) Cardio Equipment Recumbent Bicycle Duration (Minutes) 6 Resistance 4 Seat Position 5 Gym Equipment Shuttle Recovery Unilateral Squats Details Bilateral Resistance 37# Shuttle Recovery Platform Stable Bilateral Squats Resistance 75# Shuttle Recovery Platform Stable Therapeutic Exercises Other Exercises Resisted Side-stepping Other Exercise Name Sidestepping, Forward, Backward Resistance Yellow Equipment Used T-band Manual Therapy Treatment Joint Mobilizations 2 Joint Patella mobs Direction Inf/Sup Grade III 1 Joint Knee Direction P->A Grade II PT-OP-T Assessment and Plan Start: 07/05/20 07:34 Freq: Status: Active Protocol: Document 10/30/20 14:30 DCW (Rec: 10/30/20 15:11 DCW [id number]) Physical Therapy Assessment Impairments Impairments Activity Tolerance,Balance, Functional Activities, Functional Mobility,Gait, Integument,Pain,Posture,ROM, Soft Tissue Mobility,Strength, Transfers Other Impairments Personal factors include self- limiting behavior, ongoing use of opioids, assists pt for all tasks despite her demonstrating ability to perform transfers and bed mobility without assist today, obesity. Body systems affected include neuromuscular , musculoskeletal and psychosocial. Her functional presentation is stable to evolving. Goals Six Impairment 6MWT Short Term Goal (STG) Pt will gait train at least 1000 feet in 6 minutes with LRAD to improve community ambulation by 11/06/2020. 08/28/2020: Pt gait trains 563 feet in 6 minutes STG Duration 11/06/2020 5 Usp Goal (LTG) Pt will present with LE functional index score to reflect no more than 30% impairment to allow improved functional I by 11/06/2020. 08/28/2020: LEF score is 66.25 % LTG Duration 11/06/2020 Four Usp Goal (LTG) Pt will present with improved left knee AROM to at least 3- 115 deg to improve functional transfers by 11/06/2020. 08/28/2020: AROM left knee 5- 100 deg today. LTG Duration 11/06/2020 Three Bulk Cooler Installer Goal (LTG) Pt will by able to perform at least 10 reps sit to stand with UE support in 30 sec to improve safety with transfers at home by 11/06/2020. 08/28/2020: Pt cannot perform without UE support (self-limit /does not make good effort). 4 reps and pt stops, self- limits LTG Duration 11/06/2020 Two Bulk Cooler Installer Goal (LTG) Pt will be able to get in and OOB I (on plinth, into supine and back off plinth) with I to improve bed mobility at home 08/28/2020: Goal met, though pt states that she cannot do it and requires encouragement. LTG Duration 09/18/20--MET One Short Term Goal (STG) Pt will perform progressive HEP with handouts to improve ROM, flexibility, strength, sit to stands, balance and gait. 08/28/2020: Review HEP with primary therapist next treatment date STG Duration 11/06/2020 Assessment Summary Assessment Pt's back appears to be doing a little better at the moment, able to move with less tenderness. Physical Therapy Plan Frequency and Duration Frequency of Treatment 2x/Week Duration of Treatment 8 weeks Plan of Care Start Date 08/28/20 Plan of Care End Date 11/06/20 Therapeutic Interventions Therapeutic Interventions Aquatic Therapy,Balance Training,Canalithic Repositioning,Gait Training, Home Exercise Program,Manual Therapy,Neuromuscular Re- education,Patient/Caregiver Education,Self-Care/Home Management,Soft Tissue Mobilization,Taping, Therapeutic Activities, Therapeutic Exercises Modalities Cold Pack/Ice Massage,Electric Stimulation,Hot Packs, Ultrasound Next Visit Focus/Plan Next Note Type Progress Note Next Visit Plan Re-testing
--- NOTE | 2020-11-04 16:09 | PT.OTN ---
Current Diagnoses Unilateral primary osteoarthritis, left knee (11/04/20) Physical Therapy Treatment Note PT-OP-A Visit Information Start: 07/05/20 07:34 Freq: Status: Active Protocol: Document 11/04/20 15:15 DCW (Rec: 11/04/20 16:09 DCW [id number]) Out-Patient Physical Therapy Visit Information Visit Information Visit Type Progress Note Visit Start Time 15:15 Visit Stop Time 16:00 Total Visit Minutes 45 Visit Number 26 Number of PRODUCTION REPAIRER Visits 0 Evaluation Information Evaluation Date 07/05/20 PT-OP-B Current Condition Start: 07/05/20 07:34 Freq: Status: Active Protocol: Document 07/19/20 15:20 DCW (Rec: 07/19/20 15:45 DCW [id number]) Current Condition History of Current Condition Onset Date 10 years Current Complaints Post-op L TKA History of Current Condition Pt returns to therapy today following L TKA on 07/10/20. Pt reports she is in just as much pain today as I was the day after surgery. Pt performs limited ambulation around her home, basically just between her bed, chair, and bathroom. Pt reports she has been using a CPM machine, and is able to get up to 30 degrees flexion. Pt reports pain is about a 6/10 at rest, but is more like an 8/10 if she moves her leg. Pt is also reporting she has had a temperature this past week, hovering around 99 degrees, which is up from her usual temp of 97.6. Pt has been struggling with mobility secondary to pain. Personal Factors Other Personal Factors That May Effect Pt continues to be very self- Therapy/Recovery restrictive due to pain and, more frequently, fear of pain. PT-OP-C Subjective Start: 07/05/20 07:34 Freq: Status: Active Protocol: Document 11/04/20 15:15 DCW (Rec: 11/04/20 16:09 DCW [id number]) OP-PT Subjective Patient Comments Patient Comments Pt feels like her right leg and back are still what are limiting her progress. PT-OP-E Functional Tests Start: 07/19/20 15:45 Freq: Status: Active Protocol: Document 11/04/20 15:15 DCW (Rec: 11/04/20 15:46 DCW [id number]) Functional Tests 2 Minute Walk Test Distance 217 Device Used FWW Comments 1.81 ft/sec PT-OP-G Mobility & Gait Start: 07/05/20 07:34 Freq: Status: Active Protocol: Document 11/04/20 15:15 DCW (Rec: 11/04/20 15:46 DCW [id number]) OP Mobility Evaluation Bed Mobility Supine to and from Sit Needs Min Ax1 60% of the time due to low back pain OP Gait Assessment Gait Gait Assistance Required: Standby Assistance Distance (Feet) 217 Assistive Devices Assistive Device Front Wheeled Walker Gait Deviations General Gait Pattern Antalgic,Decreased Feet Clearance,Flexed Trunk Factors Limiting Gait Function Factors Limiting Gait Function Decreased Activity Tolerance, Decreased Strength,Pain Stair Climbing Evaluation Evaluation Level of Assist On Stairs Standby Assistance Devices Stair Climbing Assistive Devices Left Railing,Right Railing Technique/Endurance Stair Climbing Direction Ascend and Descend Stair Climbing Technique Step Over Step PT-OP-J Posture/Palpation/Skin Start: 07/05/20 07:34 Freq: Status: Active Protocol: Document 11/04/20 15:15 DCW (Rec: 11/04/20 15:55 DCW [id number]) Skin Assessment Circumference Measurement 3 Location 10 cm inferior to L Joint Line Measurement (Centimeters) 43.4 Comments 10 cm inerior to R Joint Line = 41.0 2 Location 10 cm superior to L Joint Line Measurement (Centimeters) 50.7 Comments 10 cm superior to R Joint Line = 47.9 1 Location L Joint Line Measurement (Centimeters) 47.8 Comments R Joint line = 45.2 PT-OP-K Range of Motion Start: 07/05/20 07:34 Freq: Status: Active Protocol: Document 11/04/20 15:15 DCW (Rec: 11/04/20 15:46 DCW [id number]) Knee Goniometric Range of Motion Knee Left Knee ROM WFL No Patient Position Sitting Flexion Active (degrees) 108 Extension Active (degrees) 3 PT-OP-M Strength Start: 07/05/20 07:34 Freq: Status: Active Protocol: Document 11/04/20 15:15 DCW (Rec: 11/04/20 15:46 DCW [id number]) Hip Strength Hip Manual Muscle Testing Right Flexion (L2) 3+ Fair+ Abduction 4 Good Adduction 4- Good- Left Flexion (L2) 4 Good Abduction 4 Good Adduction 4 Good Knee Strength Knee Manual Muscle Testing Right Flexion (S2) 4+ Good+ Extension (L3) 4+ Good+ Left Flexion (S2) 4+ Good+ Extension (L3) 4+ Good+ Ankle/Foot Strength Ankle and Foot Manual Muscle Testing Right Dorsiflexion (L4) 4+ Good+ Plantarflexion (S1) 4 Good Left Dorsiflexion (L4) 4+ Good+ Plantarflexion (S1) 4 Good PT-OP-Q Treatments Start: 07/05/20 07:34 Freq: Status: Active Protocol: Document 11/04/20 15:15 DCW (Rec: 11/04/20 16:09 DCW [id number]) Cardio Equipment Recumbent Bicycle Duration (Minutes) 6 Resistance 4 Seat Position 5 Gym Equipment Shuttle Recovery Unilateral Squats Details Bilateral Resistance 37# Shuttle Recovery Platform Stable Bilateral Squats Resistance 75# Shuttle Recovery Platform Stable Manual Therapy Treatment Other Other Manual Treatments Testing PT-OP-T Assessment and Plan Start: 07/05/20 07:34 Freq: Status: Active Protocol: Document 11/04/20 15:15 DCW (Rec: 11/04/20 16:09 DCW [id number]) Physical Therapy Assessment Impairments Impairments Activity Tolerance,Balance, Functional Activities, Functional Mobility,Gait, Integument,Pain,Posture,ROM, Soft Tissue Mobility,Strength, Transfers Other Impairments Personal factors include self- limiting behavior, ongoing use of opioids, assists pt for all tasks despite her demonstrating ability to perform transfers and bed mobility without assist today, obesity. Body systems affected include neuromuscular , musculoskeletal and psychosocial. Her functional presentation is stable to evolving. Goals Six Impairment 6MWT Short Term Goal (STG) Pt will gait train at least 1000 feet in 6 minutes with LRAD to improve community ambulation by 11/06/2020. 08/28/2020: Pt gait trains 563 feet in 6 minutes STG Duration 01/05/21 5 Assessment Specialist Goal (LTG) Pt will present with LE functional index score to reflect no more than 30% impairment to allow improved functional I by 11/06/2020. 08/28/2020: LEF score is 66.25 % LTG Duration 01/05/21 Four Jail Goal (LTG) Pt will present with improved left knee AROM to at least 3- 115 deg to improve functional transfers LTG Duration 01/05/21 - Improving (3-108) Three Assessment Specialist Goal (LTG) Pt will by able to perform at least 10 reps sit to stand with UE support in 30 sec to improve safety with transfers at home by 11/06/2020. 08/28/2020: Pt cannot perform without UE support (self-limit /does not make good effort). 4 reps and pt stops, self- limits LTG Duration 01/05/21 Two Assessment Specialist Goal (LTG) Pt will be able to get in and OOB I (on plinth, into supine and back off plinth) with I to improve bed mobility at home 08/28/2020: Goal met, though pt states that she cannot do it and requires encouragement. LTG Duration Met One Short Term Goal (STG) Pt will perform progressive HEP with handouts to improve ROM, flexibility, strength, sit to stands, balance and gait. 08/28/2020: Review HEP with primary therapist next treatment date STG Duration Met Assessment Summary Assessment Pt largely doing well 3 months s/p TKA, still showing some decreased activity tolerance, difficulty with gait, and decreased ROM, however much more motivated and self- limiting than she was at start of therapy. Pt still limited secondary to R leg weakness d/ t prior CVa and history of low back pain, both of which continue to negatively affect her overall recovery. Pt should benefit from continued skilled therapy focusing on bilateral LE strengthening, activity tolerance, and gait training. Physical Therapy Plan Frequency and Duration Frequency of Treatment 2x/Week Duration of Treatment 2 Months Plan of Care Start Date 11/04/20 Plan of Care End Date 01/05/21 Therapeutic Interventions Therapeutic Interventions Aquatic Therapy,Balance Training,Canalithic Repositioning,Gait Training, Home Exercise Program,Manual Therapy,Neuromuscular Re- education,Patient/Caregiver Education,Self-Care/Home Management,Soft Tissue Mobilization,Taping, Therapeutic Activities, Therapeutic Exercises Modalities Cold Pack/Ice Massage,Electric Stimulation,Hot Packs, Ultrasound Next Visit Focus/Plan Next Note Type Treatment Note Next Visit Plan Increased activity tolerance, B LE strength, gait training.
--- NOTE | 2020-11-04 16:10 | PT.OPPOC ---
Physical, Occupational & Speech Therapy At [facility] Current Diagnoses Unilateral primary osteoarthritis, left knee (11/04/20) Visit Care Team Role Provider Type Noah Jorgensen MD Primary Care Provider Physician Specialty: Internal Medicine Address: [address] [place] [address], [address], [place], [address] Email: [email or web address] Kain Bronson MD Attending Provider Physician Referring Provider Specialty: Orthopedic Surgery Address: [address] [place] [address], [id number] Email: [email or web address] Plan Of Care PT-OP-T Assessment and Plan Start: 07/05/20 07:34 Freq: Status: Active Protocol: Document 11/04/20 15:15 DCW (Rec: 11/04/20 16:09 DCW [id number]) Physical Therapy Assessment Impairments Impairments Activity Tolerance,Balance, Functional Activities, Functional Mobility,Gait, Integument,Pain,Posture,ROM, Soft Tissue Mobility,Strength, Transfers Other Impairments Personal factors include self- limiting behavior, ongoing use of opioids, assists pt for all tasks despite her demonstrating ability to perform transfers and bed mobility without assist today, obesity. Body systems affected include neuromuscular , musculoskeletal and psychosocial. Her functional presentation is stable to evolving. Goals Six Impairment 6MWT Short Term Goal (STG) Pt will gait train at least 1000 feet in 6 minutes with LRAD to improve community ambulation by 11/06/2020. 08/28/2020: Pt gait trains 563 feet in 6 minutes STG Duration 01/05/21 5 Skilled Nursing Goal (LTG) Pt will present with LE functional index score to reflect no more than 30% impairment to allow improved functional I by 11/06/2020. 08/28/2020: LEF score is 66.25 % LTG Duration 01/05/21 Four Printed Circuit Board Pcb Draftsman Goal (LTG) Pt will present with improved left knee AROM to at least 3- 115 deg to improve functional transfers LTG Duration 01/05/21 - Improving (3-108) Three Skilled Nursing Goal (LTG) Pt will by able to perform at least 10 reps sit to stand with UE support in 30 sec to improve safety with transfers at home by 11/06/2020. 08/28/2020: Pt cannot perform without UE support (self-limit /does not make good effort). 4 reps and pt stops, self- limits LTG Duration 01/05/21 Two Printed Circuit Board Pcb Draftsman Goal (LTG) Pt will be able to get in and OOB I (on plinth, into supine and back off plinth) with I to improve bed mobility at home 08/28/2020: Goal met, though pt states that she cannot do it and requires encouragement. LTG Duration Met One Short Term Goal (STG) Pt will perform progressive HEP with handouts to improve ROM, flexibility, strength, sit to stands, balance and gait. 08/28/2020: Review HEP with primary therapist next treatment date STG Duration Met Assessment Summary Assessment Pt largely doing well 3 months s/p TKA, still showing some decreased activity tolerance, difficulty with gait, and decreased ROM, however much more motivated and self- limiting than she was at start of therapy. Pt still limited secondary to R leg weakness d/ t prior CVa and history of low back pain, both of which continue to negatively affect her overall recovery. Pt should benefit from continued skilled therapy focusing on bilateral LE strengthening, activity tolerance, and gait training. Physical Therapy Plan Frequency and Duration Frequency of Treatment 2x/Week Duration of Treatment 2 Months Plan of Care Start Date 11/04/20 Plan of Care End Date 01/05/21 Therapeutic Interventions Therapeutic Interventions Aquatic Therapy,Balance Training,Canalithic Repositioning,Gait Training, Home Exercise Program,Manual Therapy,Neuromuscular Re- education,Patient/Caregiver Education,Self-Care/Home Management,Soft Tissue Mobilization,Taping, Therapeutic Activities, Therapeutic Exercises Modalities Cold Pack/Ice Massage,Electric Stimulation,Hot Packs, Ultrasound Next Visit Focus/Plan Next Note Type Treatment Note Next Visit Plan Increased activity tolerance, B LE strength, gait training. Plan of Care Dates Plan of Care Start Date 11/04/20 Plan of Care End Date 01/05/21 Electronically Signed by: Jey Howe, PT 11/04/20 [id number] Please Sign and Return: I have reviewed this Plan of Care and certify that the skilled therapy services above are required to meet the patient?s needs. Physician Signature Date Printed Name and Credentials Clinical Instructor Signature Printed Name and Credentials
--- NOTE | 2020-11-07 16:02 | PT.OTN ---
Current Diagnoses Unilateral primary osteoarthritis, left knee (11/07/20) Physical Therapy Treatment Note PT-OP-A Visit Information Start: 07/05/20 07:34 Freq: Status: Active Protocol: Document 11/07/20 15:15 DCW (Rec: 11/07/20 16:02 DCW [id number]) Out-Patient Physical Therapy Visit Information Visit Information Visit Type Treatment Note Visit Start Time 15:15 Visit Stop Time 16:00 Total Visit Minutes 45 Visit Number 27 Number of HUMAN RESOURCE CONSULTANT Visits 0 Evaluation Information Evaluation Date 07/05/20 PT-OP-B Current Condition Start: 07/05/20 07:34 Freq: Status: Active Protocol: Document 07/19/20 15:20 DCW (Rec: 07/19/20 15:45 DCW [id number]) Current Condition History of Current Condition Onset Date 10 years Current Complaints Post-op L TKA History of Current Condition Pt returns to therapy today following L TKA on 07/10/20. Pt reports she is in just as much pain today as I was the day after surgery. Pt performs limited ambulation around her home, basically just between her bed, chair, and bathroom. Pt reports she has been using a CPM machine, and is able to get up to 30 degrees flexion. Pt reports pain is about a 6/10 at rest, but is more like an 8/10 if she moves her leg. Pt is also reporting she has had a temperature this past week, hovering around 99 degrees, which is up from her usual temp of 97.6. Pt has been struggling with mobility secondary to pain. Personal Factors Other Personal Factors That May Effect Pt continues to be very self- Therapy/Recovery restrictive due to pain and, more frequently, fear of pain. PT-OP-C Subjective Start: 07/05/20 07:34 Freq: Status: Active Protocol: Document 11/07/20 15:15 DCW (Rec: 11/07/20 16:02 DCW [id number]) OP-PT Subjective Patient Comments Patient Comments I seem to be doing pretty well today. PT-OP-E Functional Tests Start: 07/19/20 15:45 Freq: Status: Active Protocol: Document 11/04/20 15:15 DCW (Rec: 11/04/20 15:46 DCW [id number]) Functional Tests 2 Minute Walk Test Distance 217 Device Used FWW Comments 1.81 ft/sec PT-OP-G Mobility & Gait Start: 07/05/20 07:34 Freq: Status: Active Protocol: Document 11/04/20 15:15 DCW (Rec: 11/04/20 15:46 DCW [id number]) OP Mobility Evaluation Bed Mobility Supine to and from Sit Needs Min Ax1 60% of the time due to low back pain OP Gait Assessment Gait Gait Assistance Required: Standby Assistance Distance (Feet) 217 Assistive Devices Assistive Device Front Wheeled Walker Gait Deviations General Gait Pattern Antalgic,Decreased Feet Clearance,Flexed Trunk Factors Limiting Gait Function Factors Limiting Gait Function Decreased Activity Tolerance, Decreased Strength,Pain Stair Climbing Evaluation Evaluation Level of Assist On Stairs Standby Assistance Devices Stair Climbing Assistive Devices Left Railing,Right Railing Technique/Endurance Stair Climbing Direction Ascend and Descend Stair Climbing Technique Step Over Step PT-OP-J Posture/Palpation/Skin Start: 07/05/20 07:34 Freq: Status: Active Protocol: Document 11/04/20 15:15 DCW (Rec: 11/04/20 15:55 DCW [id number]) Skin Assessment Circumference Measurement 3 Location 10 cm inferior to L Joint Line Measurement (Centimeters) 43.4 Comments 10 cm inerior to R Joint Line = 41.0 2 Location 10 cm superior to L Joint Line Measurement (Centimeters) 50.7 Comments 10 cm superior to R Joint Line = 47.9 1 Location L Joint Line Measurement (Centimeters) 47.8 Comments R Joint line = 45.2 PT-OP-K Range of Motion Start: 07/05/20 07:34 Freq: Status: Active Protocol: Document 11/04/20 15:15 DCW (Rec: 11/04/20 15:46 DCW [id number]) Knee Goniometric Range of Motion Knee Left Knee ROM WFL No Patient Position Sitting Flexion Active (degrees) 108 Extension Active (degrees) 3 PT-OP-M Strength Start: 07/05/20 07:34 Freq: Status: Active Protocol: Document 11/04/20 15:15 DCW (Rec: 11/04/20 15:46 DCW [id number]) Hip Strength Hip Manual Muscle Testing Right Flexion (L2) 3+ Fair+ Abduction 4 Good Adduction 4- Good- Left Flexion (L2) 4 Good Abduction 4 Good Adduction 4 Good Knee Strength Knee Manual Muscle Testing Right Flexion (S2) 4+ Good+ Extension (L3) 4+ Good+ Left Flexion (S2) 4+ Good+ Extension (L3) 4+ Good+ Ankle/Foot Strength Ankle and Foot Manual Muscle Testing Right Dorsiflexion (L4) 4+ Good+ Plantarflexion (S1) 4 Good Left Dorsiflexion (L4) 4+ Good+ Plantarflexion (S1) 4 Good PT-OP-Q Treatments Start: 07/05/20 07:34 Freq: Status: Active Protocol: Document 11/07/20 15:15 DCW (Rec: 11/07/20 16:02 DCW [id number]) Cardio Equipment Recumbent Bicycle Duration (Minutes) 6 Resistance 5 Seat Position 5 Gym Equipment Shuttle Recovery Unilateral Squats Details Bilateral Resistance 37# Shuttle Recovery Platform Stable Bilateral Squats Resistance 75# Shuttle Recovery Platform Stable Therapeutic Exercises Standing Exercises marching Standing Exercise Name Marching Side bilateral Other Exercises Resisted Side-stepping Other Exercise Name Sidestepping, Forward, Backward Resistance Yellow Equipment Used T-band Gait Training Gait Activity gait with cane Description Bilateral walking sticks Level of Assistance CG to min assist Distance/Duration 150' Manual Therapy Treatment Joint Mobilizations 2 Joint Patella mobs Direction Inf/Sup Grade III PT-OP-T Assessment and Plan Start: 07/05/20 07:34 Freq: Status: Active Protocol: Document 11/07/20 15:15 DCW (Rec: 11/07/20 16:02 DCW [id number]) Physical Therapy Assessment Impairments Impairments Activity Tolerance,Balance, Functional Activities, Functional Mobility,Gait, Integument,Pain,Posture,ROM, Soft Tissue Mobility,Strength, Transfers Other Impairments Personal factors include self- limiting behavior, ongoing use of opioids, assists pt for all tasks despite her demonstrating ability to perform transfers and bed mobility without assist today, obesity. Body systems affected include neuromuscular , musculoskeletal and psychosocial. Her functional presentation is stable to evolving. Goals Six Impairment 6MWT Short Term Goal (STG) Pt will gait train at least 1000 feet in 6 minutes with LRAD to improve community ambulation by 11/06/2020. 08/28/2020: Pt gait trains 563 feet in 6 minutes STG Duration 01/05/21 5 Perinatal Tech Goal (LTG) Pt will present with LE functional index score to reflect no more than 30% impairment to allow improved functional I by 11/06/2020. 08/28/2020: LEF score is 66.25 % LTG Duration 01/05/21 Four Perinatal Tech Goal (LTG) Pt will present with improved left knee AROM to at least 3- 115 deg to improve functional transfers LTG Duration 01/05/21 - Improving (3-108) Three Perinatal Tech Goal (LTG) Pt will by able to perform at least 10 reps sit to stand with UE support in 30 sec to improve safety with transfers at home by 11/06/2020. 08/28/2020: Pt cannot perform without UE support (self-limit /does not make good effort). 4 reps and pt stops, self- limits LTG Duration 01/05/21 Two Senior Care Goal (LTG) Pt will be able to get in and OOB I (on plinth, into supine and back off plinth) with I to improve bed mobility at home 08/28/2020: Goal met, though pt states that she cannot do it and requires encouragement. LTG Duration Met One Short Term Goal (STG) Pt will perform progressive HEP with handouts to improve ROM, flexibility, strength, sit to stands, balance and gait. 08/28/2020: Review HEP with primary therapist next treatment date STG Duration Met Assessment Summary Assessment Pt still struggling with gait when using trekking poles, requires CGA, fairly unstable. Physical Therapy Plan Frequency and Duration Frequency of Treatment 2x/Week Duration of Treatment 2 Months Plan of Care Start Date 11/04/20 Plan of Care End Date 01/05/21 Therapeutic Interventions Therapeutic Interventions Aquatic Therapy,Balance Training,Canalithic Repositioning,Gait Training, Home Exercise Program,Manual Therapy,Neuromuscular Re- education,Patient/Caregiver Education,Self-Care/Home Management,Soft Tissue Mobilization,Taping, Therapeutic Activities, Therapeutic Exercises Modalities Cold Pack/Ice Massage,Electric Stimulation,Hot Packs, Ultrasound Next Visit Focus/Plan Next Note Type Treatment Note Next Visit Plan Increased activity tolerance, B LE strength, gait training.
--- NOTE | 2020-11-14 15:14 | PT.OTN ---
Current Diagnoses Unilateral primary osteoarthritis, left knee (11/14/20) Physical Therapy Treatment Note PT-OP-A Visit Information Start: 07/05/20 07:34 Freq: Status: Active Protocol: Document 11/14/20 14:30 DCW (Rec: 11/14/20 15:14 DCW [id number]) Out-Patient Physical Therapy Visit Information Visit Information Visit Type Treatment Note Visit Start Time 14:30 Visit Stop Time 15:15 Total Visit Minutes 45 Visit Number 28 Number of ROASTER HELPER Visits 0 Evaluation Information Evaluation Date 07/05/20 PT-OP-B Current Condition Start: 07/05/20 07:34 Freq: Status: Active Protocol: Document 07/19/20 15:20 DCW (Rec: 07/19/20 15:45 DCW [id number]) Current Condition History of Current Condition Onset Date 10 years Current Complaints Post-op L TKA History of Current Condition Pt returns to therapy today following L TKA on 07/10/20. Pt reports she is in just as much pain today as I was the day after surgery. Pt performs limited ambulation around her home, basically just between her bed, chair, and bathroom. Pt reports she has been using a CPM machine, and is able to get up to 30 degrees flexion. Pt reports pain is about a 6/10 at rest, but is more like an 8/10 if she moves her leg. Pt is also reporting she has had a temperature this past week, hovering around 99 degrees, which is up from her usual temp of 97.6. Pt has been struggling with mobility secondary to pain. Personal Factors Other Personal Factors That May Effect Pt continues to be very self- Therapy/Recovery restrictive due to pain and, more frequently, fear of pain. PT-OP-C Subjective Start: 07/05/20 07:34 Freq: Status: Active Protocol: Document 11/14/20 14:30 DCW (Rec: 11/14/20 15:14 DCW [id number]) OP-PT Subjective Patient Comments Patient Comments Pt notes that following her appointment last , over the next few days she was doing a lot of exercise at home (quad sets, exercise bike ), and she suddenly had a lot of increased pain in her knee and could barely move on Wednesday. It has slowly been improving, but she is now very worried about it getting worse again. PT-OP-E Functional Tests Start: 07/19/20 15:45 Freq: Status: Active Protocol: Document 11/04/20 15:15 DCW (Rec: 11/04/20 15:46 DCW [id number]) Functional Tests 2 Minute Walk Test Distance 217 Device Used FWW Comments 1.81 ft/sec PT-OP-G Mobility & Gait Start: 07/05/20 07:34 Freq: Status: Active Protocol: Document 11/04/20 15:15 DCW (Rec: 11/04/20 15:46 DCW [id number]) OP Mobility Evaluation Bed Mobility Supine to and from Sit Needs Min Ax1 60% of the time due to low back pain OP Gait Assessment Gait Gait Assistance Required: Standby Assistance Distance (Feet) 217 Assistive Devices Assistive Device Front Wheeled Walker Gait Deviations General Gait Pattern Antalgic,Decreased Feet Clearance,Flexed Trunk Factors Limiting Gait Function Factors Limiting Gait Function Decreased Activity Tolerance, Decreased Strength,Pain Stair Climbing Evaluation Evaluation Level of Assist On Stairs Standby Assistance Devices Stair Climbing Assistive Devices Left Railing,Right Railing Technique/Endurance Stair Climbing Direction Ascend and Descend Stair Climbing Technique Step Over Step PT-OP-J Posture/Palpation/Skin Start: 07/05/20 07:34 Freq: Status: Active Protocol: Document 11/04/20 15:15 DCW (Rec: 11/04/20 15:55 DCW [id number]) Skin Assessment Circumference Measurement 3 Location 10 cm inferior to L Joint Line Measurement (Centimeters) 43.4 Comments 10 cm inerior to R Joint Line = 41.0 2 Location 10 cm superior to L Joint Line Measurement (Centimeters) 50.7 Comments 10 cm superior to R Joint Line = 47.9 1 Location L Joint Line Measurement (Centimeters) 47.8 Comments R Joint line = 45.2 PT-OP-K Range of Motion Start: 07/05/20 07:34 Freq: Status: Active Protocol: Document 11/04/20 15:15 DCW (Rec: 11/04/20 15:46 DCW [id number]) Knee Goniometric Range of Motion Knee Left Knee ROM WFL No Patient Position Sitting Flexion Active (degrees) 108 Extension Active (degrees) 3 PT-OP-M Strength Start: 07/05/20 07:34 Freq: Status: Active Protocol: Document 11/04/20 15:15 DCW (Rec: 11/04/20 15:46 DCW [id number]) Hip Strength Hip Manual Muscle Testing Right Flexion (L2) 3+ Fair+ Abduction 4 Good Adduction 4- Good- Left Flexion (L2) 4 Good Abduction 4 Good Adduction 4 Good Knee Strength Knee Manual Muscle Testing Right Flexion (S2) 4+ Good+ Extension (L3) 4+ Good+ Left Flexion (S2) 4+ Good+ Extension (L3) 4+ Good+ Ankle/Foot Strength Ankle and Foot Manual Muscle Testing Right Dorsiflexion (L4) 4+ Good+ Plantarflexion (S1) 4 Good Left Dorsiflexion (L4) 4+ Good+ Plantarflexion (S1) 4 Good PT-OP-Q Treatments Start: 07/05/20 07:34 Freq: Status: Active Protocol: Document 11/14/20 14:30 DCW (Rec: 11/14/20 15:14 DCW [id number]) Cardio Equipment Recumbent Bicycle Duration (Minutes) 4 Resistance 4 Seat Position 5 Other Stopped d/t knee discomfort Gym Equipment Shuttle Recovery Unilateral Squats Details R only Resistance 37# Shuttle Recovery Platform Stable Bilateral Squats Resistance 75# Shuttle Recovery Platform Stable PT-OP-T Assessment and Plan Start: 07/05/20 07:34 Freq: Status: Active Protocol: Document 11/14/20 14:30 DCW (Rec: 11/14/20 15:14 DCW [id number]) Physical Therapy Assessment Impairments Impairments Activity Tolerance,Balance, Functional Activities, Functional Mobility,Gait, Integument,Pain,Posture,ROM, Soft Tissue Mobility,Strength, Transfers Other Impairments Personal factors include self- limiting behavior, ongoing use of opioids, assists pt for all tasks despite her demonstrating ability to perform transfers and bed mobility without assist today, obesity. Body systems affected include neuromuscular , musculoskeletal and psychosocial. Her functional presentation is stable to evolving. Goals Six Impairment 6MWT Short Term Goal (STG) Pt will gait train at least 1000 feet in 6 minutes with LRAD to improve community ambulation by 12/05/2020. 08/28/2020: Pt gait trains 563 feet in 6 minutes STG Duration 01/05/21 5 Phototypesetter Operator Goal (LTG) Pt will present with LE functional index score to reflect no more than 30% impairment to allow improved functional I by 01/05/21. 08/28/2020: LEF score is 66.25 % LTG Duration 01/05/21 Four Phototypesetter Operator Goal (LTG) Pt will present with improved left knee AROM to at least 3- 115 deg to improve functional transfers LTG Duration 01/05/21 - Improving (3-108) Three Phototypesetter Operator Goal (LTG) Pt will by able to perform at least 10 reps sit to stand with UE support in 30 sec to improve safety with transfers at home by 11/06/2020. 08/28/2020: Pt cannot perform without UE support (self-limit /does not make good effort). 4 reps and pt stops, self- limits LTG Duration 01/05/21 Two Care Home Goal (LTG) Pt will be able to get in and OOB I (on plinth, into supine and back off plinth) with I to improve bed mobility at home 08/28/2020: Goal met, though pt states that she cannot do it and requires encouragement. LTG Duration Met One Short Term Goal (STG) Pt will perform progressive HEP with handouts to improve ROM, flexibility, strength, sit to stands, balance and gait. 08/28/2020: Review HEP with primary therapist next treatment date STG Duration Met Assessment Summary Assessment Pt struggled much more today after her knee pain this past weekend, had difficulty with performing most strengthening and ROM. Physical Therapy Plan Frequency and Duration Frequency of Treatment 2x/Week Duration of Treatment 2 Months Plan of Care Start Date 11/04/20 Plan of Care End Date 01/05/21 Therapeutic Interventions Therapeutic Interventions Aquatic Therapy,Balance Training,Canalithic Repositioning,Gait Training, Home Exercise Program,Manual Therapy,Neuromuscular Re- education,Patient/Caregiver Education,Self-Care/Home Management,Soft Tissue Mobilization,Taping, Therapeutic Activities, Therapeutic Exercises Modalities Cold Pack/Ice Massage,Electric Stimulation,Hot Packs, Ultrasound Next Visit Focus/Plan Next Note Type Treatment Note Next Visit Plan Increased activity tolerance, B LE strength, gait training.
--- NOTE | 2020-11-18 16:01 | PT.OTN ---
Current Diagnoses Unilateral primary osteoarthritis, left knee (11/18/20) Physical Therapy Treatment Note PT-OP-A Visit Information Start: 07/05/20 07:34 Freq: Status: Active Protocol: Document 11/18/20 15:15 DCW (Rec: 11/18/20 16:01 DCW [id number]) Out-Patient Physical Therapy Visit Information Visit Information Visit Type Treatment Note Visit Start Time 15:15 Visit Stop Time 16:00 Total Visit Minutes 45 Visit Number 29 Number of DAIRY BACTERIOLOGIST Visits 0 Evaluation Information Evaluation Date 07/05/20 PT-OP-B Current Condition Start: 07/05/20 07:34 Freq: Status: Active Protocol: Document 07/19/20 15:20 DCW (Rec: 07/19/20 15:45 DCW [id number]) Current Condition History of Current Condition Onset Date 10 years Current Complaints Post-op L TKA History of Current Condition Pt returns to therapy today following L TKA on 07/10/20. Pt reports she is in just as much pain today as I was the day after surgery. Pt performs limited ambulation around her home, basically just between her bed, chair, and bathroom. Pt reports she has been using a CPM machine, and is able to get up to 30 degrees flexion. Pt reports pain is about a 6/10 at rest, but is more like an 8/10 if she moves her leg. Pt is also reporting she has had a temperature this past week, hovering around 99 degrees, which is up from her usual temp of 97.6. Pt has been struggling with mobility secondary to pain. Personal Factors Other Personal Factors That May Effect Pt continues to be very self- Therapy/Recovery restrictive due to pain and, more frequently, fear of pain. PT-OP-C Subjective Start: 07/05/20 07:34 Freq: Status: Active Protocol: Document 11/18/20 15:15 DCW (Rec: 11/18/20 16:01 DCW [id number]) OP-PT Subjective Patient Comments Patient Comments Pt reports her left knee is feeling much better today. PT-OP-E Functional Tests Start: 07/19/20 15:45 Freq: Status: Active Protocol: Document 11/04/20 15:15 DCW (Rec: 11/04/20 15:46 DCW [id number]) Functional Tests 2 Minute Walk Test Distance 217 Device Used FWW Comments 1.81 ft/sec PT-OP-G Mobility & Gait Start: 07/05/20 07:34 Freq: Status: Active Protocol: Document 11/04/20 15:15 DCW (Rec: 11/04/20 15:46 DCW [id number]) OP Mobility Evaluation Bed Mobility Supine to and from Sit Needs Min Ax1 60% of the time due to low back pain OP Gait Assessment Gait Gait Assistance Required: Standby Assistance Distance (Feet) 217 Assistive Devices Assistive Device Front Wheeled Walker Gait Deviations General Gait Pattern Antalgic,Decreased Feet Clearance,Flexed Trunk Factors Limiting Gait Function Factors Limiting Gait Function Decreased Activity Tolerance, Decreased Strength,Pain Stair Climbing Evaluation Evaluation Level of Assist On Stairs Standby Assistance Devices Stair Climbing Assistive Devices Left Railing,Right Railing Technique/Endurance Stair Climbing Direction Ascend and Descend Stair Climbing Technique Step Over Step PT-OP-J Posture/Palpation/Skin Start: 07/05/20 07:34 Freq: Status: Active Protocol: Document 11/04/20 15:15 DCW (Rec: 11/04/20 15:55 DCW [id number]) Skin Assessment Circumference Measurement 3 Location 10 cm inferior to L Joint Line Measurement (Centimeters) 43.4 Comments 10 cm inerior to R Joint Line = 41.0 2 Location 10 cm superior to L Joint Line Measurement (Centimeters) 50.7 Comments 10 cm superior to R Joint Line = 47.9 1 Location L Joint Line Measurement (Centimeters) 47.8 Comments R Joint line = 45.2 PT-OP-K Range of Motion Start: 07/05/20 07:34 Freq: Status: Active Protocol: Document 11/04/20 15:15 DCW (Rec: 11/04/20 15:46 DCW [id number]) Knee Goniometric Range of Motion Knee Left Knee ROM WFL No Patient Position Sitting Flexion Active (degrees) 108 Extension Active (degrees) 3 PT-OP-M Strength Start: 07/05/20 07:34 Freq: Status: Active Protocol: Document 11/04/20 15:15 DCW (Rec: 11/04/20 15:46 DCW [id number]) Hip Strength Hip Manual Muscle Testing Right Flexion (L2) 3+ Fair+ Abduction 4 Good Adduction 4- Good- Left Flexion (L2) 4 Good Abduction 4 Good Adduction 4 Good Knee Strength Knee Manual Muscle Testing Right Flexion (S2) 4+ Good+ Extension (L3) 4+ Good+ Left Flexion (S2) 4+ Good+ Extension (L3) 4+ Good+ Ankle/Foot Strength Ankle and Foot Manual Muscle Testing Right Dorsiflexion (L4) 4+ Good+ Plantarflexion (S1) 4 Good Left Dorsiflexion (L4) 4+ Good+ Plantarflexion (S1) 4 Good PT-OP-Q Treatments Start: 07/05/20 07:34 Freq: Status: Active Protocol: Document 11/18/20 15:15 DCW (Rec: 11/18/20 16:01 DCW [id number]) Cardio Equipment Recumbent Bicycle Duration (Minutes) 6 Resistance 5 Seat Position 5 Gym Equipment Shuttle Recovery Unilateral Squats Details Bilateral Resistance 37# Shuttle Recovery Platform Stable Bilateral Squats Resistance 75# Shuttle Recovery Platform Stable Therapeutic Exercises Standing Exercises marching Standing Exercise Name Marching Side bilateral Heel/Toe Raises Standing Exercise Name Heel raises/toe raises Side bilateral Reps/Minutes x10 Hamstring Curls Standing Exercise Name Standing HS curls Side bilateral Resistance 5# Equipment Used // bars Other Exercises Resisted Side-stepping Other Exercise Name Sidestepping, Forward, Backward Resistance Yellow Equipment Used T-band Manual Therapy Treatment Joint Mobilizations 2 Joint Patella mobs Direction Inf/Sup Grade III PT-OP-T Assessment and Plan Start: 07/05/20 07:34 Freq: Status: Active Protocol: Document 11/18/20 15:15 DCW (Rec: 11/18/20 16:01 DCW [id number]) Physical Therapy Assessment Impairments Impairments Activity Tolerance,Balance, Functional Activities, Functional Mobility,Gait, Integument,Pain,Posture,ROM, Soft Tissue Mobility,Strength, Transfers Other Impairments Personal factors include self- limiting behavior, ongoing use of opioids, assists pt for all tasks despite her demonstrating ability to perform transfers and bed mobility without assist today, obesity. Body systems affected include neuromuscular , musculoskeletal and psychosocial. Her functional presentation is stable to evolving. Goals Six Impairment 6MWT Short Term Goal (STG) Pt will gait train at least 1000 feet in 6 minutes with LRAD to improve community ambulation by 12/05/2020. 08/28/2020: Pt gait trains 563 feet in 6 minutes STG Duration 01/05/21 5 Group Home Goal (LTG) Pt will present with LE functional index score to reflect no more than 30% impairment to allow improved functional I by 01/05/21. 08/28/2020: LEF score is 66.25 % LTG Duration 01/05/21 Four Bell Clerk Goal (LTG) Pt will present with improved left knee AROM to at least 3- 115 deg to improve functional transfers LTG Duration 01/05/21 - Improving (3-108) Three Bell Clerk Goal (LTG) Pt will by able to perform at least 10 reps sit to stand with UE support in 30 sec to improve safety with transfers at home by 11/06/2020. 08/28/2020: Pt cannot perform without UE support (self-limit /does not make good effort). 4 reps and pt stops, self- limits LTG Duration 01/05/21 Two Bell Clerk Goal (LTG) Pt will be able to get in and OOB I (on plinth, into supine and back off plinth) with I to improve bed mobility at home 08/28/2020: Goal met, though pt states that she cannot do it and requires encouragement. LTG Duration Met One Short Term Goal (STG) Pt will perform progressive HEP with handouts to improve ROM, flexibility, strength, sit to stands, balance and gait. 08/28/2020: Review HEP with primary therapist next treatment date STG Duration Met Assessment Summary Assessment Pt did very well today, able to perform all activities with no complaints of pain or difficulty. Physical Therapy Plan Frequency and Duration Frequency of Treatment 2x/Week Duration of Treatment 2 Months Plan of Care Start Date 11/04/20 Plan of Care End Date 01/05/21 Therapeutic Interventions Therapeutic Interventions Aquatic Therapy,Balance Training,Canalithic Repositioning,Gait Training, Home Exercise Program,Manual Therapy,Neuromuscular Re- education,Patient/Caregiver Education,Self-Care/Home Management,Soft Tissue Mobilization,Taping, Therapeutic Activities, Therapeutic Exercises Modalities Cold Pack/Ice Massage,Electric Stimulation,Hot Packs, Ultrasound Next Visit Focus/Plan Next Note Type Treatment Note Next Visit Plan Increased activity tolerance, B LE strength, gait training.
--- NOTE | 2020-11-21 16:48 | PT.OTN ---
Current Diagnoses Unilateral primary osteoarthritis, left knee (11/21/20) Physical Therapy Treatment Note PT-OP-A Visit Information Start: 07/05/20 07:34 Freq: Status: Active Protocol: Document 11/21/20 16:00 DCW (Rec: 11/21/20 16:47 DCW [id number]) Out-Patient Physical Therapy Visit Information Visit Information Visit Type Treatment Note Visit Start Time 16:00 Visit Stop Time 16:45 Total Visit Minutes 45 Visit Number 30 Number of INTERNAL MEDICINE NURSE PRACTITIONER Visits 0 Evaluation Information Evaluation Date 07/05/20 PT-OP-B Current Condition Start: 07/05/20 07:34 Freq: Status: Active Protocol: Document 07/19/20 15:20 DCW (Rec: 07/19/20 15:45 DCW [id number]) Current Condition History of Current Condition Onset Date 10 years Current Complaints Post-op L TKA History of Current Condition Pt returns to therapy today following L TKA on 07/10/20. Pt reports she is in just as much pain today as I was the day after surgery. Pt performs limited ambulation around her home, basically just between her bed, chair, and bathroom. Pt reports she has been using a CPM machine, and is able to get up to 30 degrees flexion. Pt reports pain is about a 6/10 at rest, but is more like an 8/10 if she moves her leg. Pt is also reporting she has had a temperature this past week, hovering around 99 degrees, which is up from her usual temp of 97.6. Pt has been struggling with mobility secondary to pain. Personal Factors Other Personal Factors That May Effect Pt continues to be very self- Therapy/Recovery restrictive due to pain and, more frequently, fear of pain. PT-OP-C Subjective Start: 07/05/20 07:34 Freq: Status: Active Protocol: Document 11/21/20 16:00 DCW (Rec: 11/21/20 16:47 DCW [id number]) OP-PT Subjective Patient Comments Patient Comments Pt reports she is doing well today. Did more walking yesterday, and it didn't kill me, and I feel fine today. PT-OP-E Functional Tests Start: 07/19/20 15:45 Freq: Status: Active Protocol: Document 11/04/20 15:15 DCW (Rec: 11/04/20 15:46 DCW [id number]) Functional Tests 2 Minute Walk Test Distance 217 Device Used FWW Comments 1.81 ft/sec PT-OP-G Mobility & Gait Start: 07/05/20 07:34 Freq: Status: Active Protocol: Document 11/04/20 15:15 DCW (Rec: 11/04/20 15:46 DCW [id number]) OP Mobility Evaluation Bed Mobility Supine to and from Sit Needs Min Ax1 60% of the time due to low back pain OP Gait Assessment Gait Gait Assistance Required: Standby Assistance Distance (Feet) 217 Assistive Devices Assistive Device Front Wheeled Walker Gait Deviations General Gait Pattern Antalgic,Decreased Feet Clearance,Flexed Trunk Factors Limiting Gait Function Factors Limiting Gait Function Decreased Activity Tolerance, Decreased Strength,Pain Stair Climbing Evaluation Evaluation Level of Assist On Stairs Standby Assistance Devices Stair Climbing Assistive Devices Left Railing,Right Railing Technique/Endurance Stair Climbing Direction Ascend and Descend Stair Climbing Technique Step Over Step PT-OP-J Posture/Palpation/Skin Start: 07/05/20 07:34 Freq: Status: Active Protocol: Document 11/04/20 15:15 DCW (Rec: 11/04/20 15:55 DCW [id number]) Skin Assessment Circumference Measurement 3 Location 10 cm inferior to L Joint Line Measurement (Centimeters) 43.4 Comments 10 cm inerior to R Joint Line = 41.0 2 Location 10 cm superior to L Joint Line Measurement (Centimeters) 50.7 Comments 10 cm superior to R Joint Line = 47.9 1 Location L Joint Line Measurement (Centimeters) 47.8 Comments R Joint line = 45.2 PT-OP-K Range of Motion Start: 07/05/20 07:34 Freq: Status: Active Protocol: Document 11/04/20 15:15 DCW (Rec: 11/04/20 15:46 DCW [id number]) Knee Goniometric Range of Motion Knee Left Knee ROM WFL No Patient Position Sitting Flexion Active (degrees) 108 Extension Active (degrees) 3 PT-OP-M Strength Start: 07/05/20 07:34 Freq: Status: Active Protocol: Document 11/04/20 15:15 DCW (Rec: 11/04/20 15:46 DCW [id number]) Hip Strength Hip Manual Muscle Testing Right Flexion (L2) 3+ Fair+ Abduction 4 Good Adduction 4- Good- Left Flexion (L2) 4 Good Abduction 4 Good Adduction 4 Good Knee Strength Knee Manual Muscle Testing Right Flexion (S2) 4+ Good+ Extension (L3) 4+ Good+ Left Flexion (S2) 4+ Good+ Extension (L3) 4+ Good+ Ankle/Foot Strength Ankle and Foot Manual Muscle Testing Right Dorsiflexion (L4) 4+ Good+ Plantarflexion (S1) 4 Good Left Dorsiflexion (L4) 4+ Good+ Plantarflexion (S1) 4 Good PT-OP-Q Treatments Start: 07/05/20 07:34 Freq: Status: Active Protocol: Document 11/21/20 16:00 DCW (Rec: 11/21/20 16:47 DCW [id number]) Cardio Equipment Recumbent Bicycle Duration (Minutes) 6 Resistance 5 Seat Position 5 Gym Equipment Shuttle Recovery Unilateral Squats Details Bilateral Resistance 37# Shuttle Recovery Platform Stable Bilateral Squats Resistance 75# Shuttle Recovery Platform Stable Therapeutic Exercises Standing Exercises marching Standing Exercise Name Toe-taps Side bilateral Resistance 5# Equipment Used 6 steps Hip Abduction Standing Exercise Name Hip Abduction Side bilateral Resistance 5# Equipment Used // bars Reps/Minutes x15 Hip Extension Standing Exercise Name Hip Extension Side bilateral Resistance Lv 2 Equipment Used T-band Hamstring Curls Standing Exercise Name Standing HS curls Side bilateral Resistance 5# Equipment Used // bars Other Exercises Resisted Side-stepping Other Exercise Name Sidestepping, Forward, Backward Resistance Yellow Equipment Used T-band Manual Therapy Treatment Joint Mobilizations 2 Joint Patella mobs Direction Inf/Sup Grade III PT-OP-T Assessment and Plan Start: 07/05/20 07:34 Freq: Status: Active Protocol: Document 11/21/20 16:00 DCW (Rec: 11/21/20 16:47 DCW [id number]) Physical Therapy Assessment Impairments Impairments Activity Tolerance,Balance, Functional Activities, Functional Mobility,Gait, Integument,Pain,Posture,ROM, Soft Tissue Mobility,Strength, Transfers Other Impairments Personal factors include self- limiting behavior, ongoing use of opioids, assists pt for all tasks despite her demonstrating ability to perform transfers and bed mobility without assist today, obesity. Body systems affected include neuromuscular , musculoskeletal and psychosocial. Her functional presentation is stable to evolving. Goals Six Impairment 6MWT Short Term Goal (STG) Pt will gait train at least 1000 feet in 6 minutes with LRAD to improve community ambulation by 12/05/2020. 08/28/2020: Pt gait trains 563 feet in 6 minutes STG Duration 01/05/21 5 Director Of Individual Giving Goal (LTG) Pt will present with LE functional index score to reflect no more than 30% impairment to allow improved functional I by 01/05/21. 08/28/2020: LEF score is 66.25 % LTG Duration 01/05/21 Four Director Of Individual Giving Goal (LTG) Pt will present with improved left knee AROM to at least 3- 115 deg to improve functional transfers LTG Duration 01/05/21 - Improving (3-108) Three Director Of Individual Giving Goal (LTG) Pt will by able to perform at least 10 reps sit to stand with UE support in 30 sec to improve safety with transfers at home by 11/06/2020. 08/28/2020: Pt cannot perform without UE support (self-limit /does not make good effort). 4 reps and pt stops, self- limits LTG Duration 01/05/21 Two Director Of Individual Giving Goal (LTG) Pt will be able to get in and OOB I (on plinth, into supine and back off plinth) with I to improve bed mobility at home 08/28/2020: Goal met, though pt states that she cannot do it and requires encouragement. LTG Duration Met One Short Term Goal (STG) Pt will perform progressive HEP with handouts to improve ROM, flexibility, strength, sit to stands, balance and gait. 08/28/2020: Review HEP with primary therapist next treatment date STG Duration Met Assessment Summary Assessment Pt had no difficulty today, was able to tolerate an increased amount of activity today. Physical Therapy Plan Frequency and Duration Frequency of Treatment 2x/Week Duration of Treatment 2 Months Plan of Care Start Date 11/04/20 Plan of Care End Date 01/05/21 Therapeutic Interventions Therapeutic Interventions Aquatic Therapy,Balance Training,Canalithic Repositioning,Gait Training, Home Exercise Program,Manual Therapy,Neuromuscular Re- education,Patient/Caregiver Education,Self-Care/Home Management,Soft Tissue Mobilization,Taping, Therapeutic Activities, Therapeutic Exercises Modalities Cold Pack/Ice Massage,Electric Stimulation,Hot Packs, Ultrasound Next Visit Focus/Plan Next Note Type Treatment Note Next Visit Plan Increased activity tolerance, B LE strength, gait training.
--- NOTE | 2020-11-25 15:15 | PT.OTN ---
Current Diagnoses Unilateral primary osteoarthritis, left knee (11/25/20) Physical Therapy Treatment Note PT-OP-A Visit Information Start: 07/05/20 07:34 Freq: Status: Active Protocol: Document 11/25/20 14:30 DCW (Rec: 11/25/20 15:15 DCW [id number]) Out-Patient Physical Therapy Visit Information Visit Information Visit Type Treatment Note Visit Start Time 14:30 Visit Stop Time 15:15 Total Visit Minutes 45 Visit Number 31 Number of PRINTING EQUIPMENT MECHANIC Visits 0 Evaluation Information Evaluation Date 07/05/20 PT-OP-B Current Condition Start: 07/05/20 07:34 Freq: Status: Active Protocol: Document 07/19/20 15:20 DCW (Rec: 07/19/20 15:45 DCW [id number]) Current Condition History of Current Condition Onset Date 10 years Current Complaints Post-op L TKA History of Current Condition Pt returns to therapy today following L TKA on 07/10/20. Pt reports she is in just as much pain today as I was the day after surgery. Pt performs limited ambulation around her home, basically just between her bed, chair, and bathroom. Pt reports she has been using a CPM machine, and is able to get up to 30 degrees flexion. Pt reports pain is about a 6/10 at rest, but is more like an 8/10 if she moves her leg. Pt is also reporting she has had a temperature this past week, hovering around 99 degrees, which is up from her usual temp of 97.6. Pt has been struggling with mobility secondary to pain. Personal Factors Other Personal Factors That May Effect Pt continues to be very self- Therapy/Recovery restrictive due to pain and, more frequently, fear of pain. PT-OP-C Subjective Start: 07/05/20 07:34 Freq: Status: Active Protocol: Document 11/25/20 14:30 DCW (Rec: 11/25/20 15:15 DCW [id number]) OP-PT Subjective Patient Comments Patient Comments I'm back up to my normal level 14 (setting on her stationary bike), and I'm feeling good. PT-OP-E Functional Tests Start: 07/19/20 15:45 Freq: Status: Active Protocol: Document 11/04/20 15:15 DCW (Rec: 12/28/20 15:46 DCW [id number]) Functional Tests 2 Minute Walk Test Distance 217 Device Used FWW Comments 1.81 ft/sec PT-OP-G Mobility & Gait Start: 07/05/20 07:34 Freq: Status: Active Protocol: Document 11/04/20 15:15 DCW (Rec: 11/04/20 15:46 DCW [id number]) OP Mobility Evaluation Bed Mobility Supine to and from Sit Needs Min Ax1 60% of the time due to low back pain OP Gait Assessment Gait Gait Assistance Required: Standby Assistance Distance (Feet) 217 Assistive Devices Assistive Device Front Wheeled Walker Gait Deviations General Gait Pattern Antalgic,Decreased Feet Clearance,Flexed Trunk Factors Limiting Gait Function Factors Limiting Gait Function Decreased Activity Tolerance, Decreased Strength,Pain Stair Climbing Evaluation Evaluation Level of Assist On Stairs Standby Assistance Devices Stair Climbing Assistive Devices Left Railing,Right Railing Technique/Endurance Stair Climbing Direction Ascend and Descend Stair Climbing Technique Step Over Step PT-OP-J Posture/Palpation/Skin Start: 07/05/20 07:34 Freq: Status: Active Protocol: Document 11/04/20 15:15 DCW (Rec: 11/04/20 15:55 DCW [id number]) Skin Assessment Circumference Measurement 3 Location 10 cm inferior to L Joint Line Measurement (Centimeters) 43.4 Comments 10 cm inerior to R Joint Line = 41.0 2 Location 10 cm superior to L Joint Line Measurement (Centimeters) 50.7 Comments 10 cm superior to R Joint Line = 47.9 1 Location L Joint Line Measurement (Centimeters) 47.8 Comments R Joint line = 45.2 PT-OP-K Range of Motion Start: 07/05/20 07:34 Freq: Status: Active Protocol: Document 11/04/20 15:15 DCW (Rec: 11/04/20 15:46 DCW [id number]) Knee Goniometric Range of Motion Knee Left Knee ROM WFL No Patient Position Sitting Flexion Active (degrees) 108 Extension Active (degrees) 3 PT-OP-M Strength Start: 07/05/20 07:34 Freq: Status: Active Protocol: Document 11/04/20 15:15 DCW (Rec: 11/04/20 15:46 DCW [id number]) Hip Strength Hip Manual Muscle Testing Right Flexion (L2) 3+ Fair+ Abduction 4 Good Adduction 4- Good- Left Flexion (L2) 4 Good Abduction 4 Good Adduction 4 Good Knee Strength Knee Manual Muscle Testing Right Flexion (S2) 4+ Good+ Extension (L3) 4+ Good+ Left Flexion (S2) 4+ Good+ Extension (L3) 4+ Good+ Ankle/Foot Strength Ankle and Foot Manual Muscle Testing Right Dorsiflexion (L4) 4+ Good+ Plantarflexion (S1) 4 Good Left Dorsiflexion (L4) 4+ Good+ Plantarflexion (S1) 4 Good PT-OP-Q Treatments Start: 07/05/20 07:34 Freq: Status: Active Protocol: Document 11/25/20 14:30 DCW (Rec: 11/25/20 15:15 DCW [id number]) Cardio Equipment Recumbent Bicycle Duration (Minutes) 6 Resistance 5 Seat Position 5 Gym Equipment Shuttle Recovery Unilateral Squats Details Bilateral Resistance 37# Shuttle Recovery Platform Stable Bilateral Squats Resistance 75# Shuttle Recovery Platform Stable Therapeutic Exercises Standing Exercises marching Standing Exercise Name Toe-taps Side bilateral Resistance 5# Equipment Used 6 steps Hip Abduction Standing Exercise Name Hip Abduction Side bilateral Resistance 5# Equipment Used // bars Reps/Minutes x15 Heel/Toe Raises Standing Exercise Name Heel raises/toe raises Side bilateral Reps/Minutes x10 Hip Extension Standing Exercise Name Hip Extension Side bilateral Resistance Lv 2 Equipment Used T-band Hamstring Curls Standing Exercise Name Standing HS curls Side bilateral Resistance 5# Equipment Used // bars Other Exercises Resisted Side-stepping Other Exercise Name Sidestepping, Forward, Backward Resistance Yellow Equipment Used T-band Manual Therapy Treatment Joint Mobilizations 2 Joint Patella mobs Direction Inf/Sup Grade III PT-OP-T Assessment and Plan Start: 07/05/20 07:34 Freq: Status: Active Protocol: Document 11/25/20 14:30 DCW (Rec: 11/25/20 15:15 DCW [id number]) Physical Therapy Assessment Impairments Impairments Activity Tolerance,Balance, Functional Activities, Functional Mobility,Gait, Integument,Pain,Posture,ROM, Soft Tissue Mobility,Strength, Transfers Other Impairments Personal factors include self- limiting behavior, ongoing use of opioids, assists pt for all tasks despite her demonstrating ability to perform transfers and bed mobility without assist today, obesity. Body systems affected include neuromuscular , musculoskeletal and psychosocial. Her functional presentation is stable to evolving. Goals Six Impairment 6MWT Short Term Goal (STG) Pt will gait train at least 1000 feet in 6 minutes with LRAD to improve community ambulation by 12/05/2020. 08/28/2020: Pt gait trains 563 feet in 6 minutes STG Duration 01/05/21 5 Residential Goal (LTG) Pt will present with LE functional index score to reflect no more than 30% impairment to allow improved functional I by 01/05/21. 08/28/2020: LEF score is 66.25 % LTG Duration 01/05/21 Four Writing Manager Goal (LTG) Pt will present with improved left knee AROM to at least 3- 115 deg to improve functional transfers LTG Duration 01/05/21 - Improving (3-108) Three Writing Manager Goal (LTG) Pt will by able to perform at least 10 reps sit to stand with UE support in 30 sec to improve safety with transfers at home by 11/06/2020. 08/28/2020: Pt cannot perform without UE support (self-limit /does not make good effort). 4 reps and pt stops, self- limits LTG Duration 01/05/21 Two Writing Manager Goal (LTG) Pt will be able to get in and OOB I (on plinth, into supine and back off plinth) with I to improve bed mobility at home 08/28/2020: Goal met, though pt states that she cannot do it and requires encouragement. LTG Duration Met One Short Term Goal (STG) Pt will perform progressive HEP with handouts to improve ROM, flexibility, strength, sit to stands, balance and gait. 08/28/2020: Review HEP with primary therapist next treatment date STG Duration Met Assessment Summary Assessment Pt restricted herself a little bit more today, admitted to giving up on a few of her exercises in the middle of her session. Physical Therapy Plan Frequency and Duration Frequency of Treatment 2x/Week Duration of Treatment 2 Months Plan of Care Start Date 11/04/20 Plan of Care End Date 01/05/21 Therapeutic Interventions Therapeutic Interventions Aquatic Therapy,Balance Training,Canalithic Repositioning,Gait Training, Home Exercise Program,Manual Therapy,Neuromuscular Re- education,Patient/Caregiver Education,Self-Care/Home Management,Soft Tissue Mobilization,Taping, Therapeutic Activities, Therapeutic Exercises Modalities Cold Pack/Ice Massage,Electric Stimulation,Hot Packs, Ultrasound Next Visit Focus/Plan Next Note Type Treatment Note Next Visit Plan Increased activity tolerance, B LE strength, gait training.
--- NOTE | 2020-12-02 15:14 | PT.OTN ---
Current Diagnoses Unilateral primary osteoarthritis, left knee (12/02/20) Physical Therapy Treatment Note PT-OP-A Visit Information Start: 07/05/20 07:34 Freq: Status: Active Protocol: Document 12/02/20 14:30 DCW (Rec: 12/02/20 15:14 DCW [id number]) Out-Patient Physical Therapy Visit Information Visit Information Visit Type Treatment Note Visit Start Time 14:30 Visit Stop Time 15:15 Total Visit Minutes 45 Visit Number 32 Number of CONSULTING ANALYST Visits 0 Evaluation Information Evaluation Date 07/05/20 PT-OP-B Current Condition Start: 07/05/20 07:34 Freq: Status: Active Protocol: Document 07/19/20 15:20 DCW (Rec: 07/19/20 15:45 DCW [id number]) Current Condition History of Current Condition Onset Date 10 years Current Complaints Post-op L TKA History of Current Condition Pt returns to therapy today following L TKA on 07/10/20. Pt reports she is in just as much pain today as I was the day after surgery. Pt performs limited ambulation around her home, basically just between her bed, chair, and bathroom. Pt reports she has been using a CPM machine, and is able to get up to 30 degrees flexion. Pt reports pain is about a 6/10 at rest, but is more like an 8/10 if she moves her leg. Pt is also reporting she has had a temperature this past week, hovering around 99 degrees, which is up from her usual temp of 97.6. Pt has been struggling with mobility secondary to pain. Personal Factors Other Personal Factors That May Effect Pt continues to be very self- Therapy/Recovery restrictive due to pain and, more frequently, fear of pain. PT-OP-C Subjective Start: 07/05/20 07:34 Freq: Status: Active Protocol: Document 12/02/20 14:30 DCW (Rec: 12/02/20 15:14 DCW [id number]) OP-PT Subjective Patient Comments Patient Comments Pt reports she has been doing pretty well recent, but she is getting worried about the new Covid variants, and is unsure if she wants to continue therapy until she gets her first injection. PT-OP-E Functional Tests Start: 07/19/20 15:45 Freq: Status: Active Protocol: Document 11/04/20 15:15 DCW (Rec: 11/04/20 15:46 DCW [id number]) Functional Tests 2 Minute Walk Test Distance 217 Device Used FWW Comments 1.81 ft/sec PT-OP-G Mobility & Gait Start: 07/05/20 07:34 Freq: Status: Active Protocol: Document 11/04/20 15:15 DCW (Rec: 11/04/20 15:46 DCW [id number]) OP Mobility Evaluation Bed Mobility Supine to and from Sit Needs Min Ax1 60% of the time due to low back pain OP Gait Assessment Gait Gait Assistance Required: Standby Assistance Distance (Feet) 217 Assistive Devices Assistive Device Front Wheeled Walker Gait Deviations General Gait Pattern Antalgic,Decreased Feet Clearance,Flexed Trunk Factors Limiting Gait Function Factors Limiting Gait Function Decreased Activity Tolerance, Decreased Strength,Pain Stair Climbing Evaluation Evaluation Level of Assist On Stairs Standby Assistance Devices Stair Climbing Assistive Devices Left Railing,Right Railing Technique/Endurance Stair Climbing Direction Ascend and Descend Stair Climbing Technique Step Over Step PT-OP-J Posture/Palpation/Skin Start: 07/05/20 07:34 Freq: Status: Active Protocol: Document 11/04/20 15:15 DCW (Rec: 11/04/20 15:55 DCW [id number]) Skin Assessment Circumference Measurement 3 Location 10 cm inferior to L Joint Line Measurement (Centimeters) 43.4 Comments 10 cm inerior to R Joint Line = 41.0 2 Location 10 cm superior to L Joint Line Measurement (Centimeters) 50.7 Comments 10 cm superior to R Joint Line = 47.9 1 Location L Joint Line Measurement (Centimeters) 47.8 Comments R Joint line = 45.2 PT-OP-K Range of Motion Start: 07/05/20 07:34 Freq: Status: Active Protocol: Document 11/04/20 15:15 DCW (Rec: 11/04/20 15:46 DCW [id number]) Knee Goniometric Range of Motion Knee Left Knee ROM WFL No Patient Position Sitting Flexion Active (degrees) 108 Extension Active (degrees) 3 PT-OP-M Strength Start: 07/05/20 07:34 Freq: Status: Active Protocol: Document 11/04/20 15:15 DCW (Rec: 11/04/20 15:46 DCW [id number]) Hip Strength Hip Manual Muscle Testing Right Flexion (L2) 3+ Fair+ Abduction 4 Good Adduction 4- Good- Left Flexion (L2) 4 Good Abduction 4 Good Adduction 4 Good Knee Strength Knee Manual Muscle Testing Right Flexion (S2) 4+ Good+ Extension (L3) 4+ Good+ Left Flexion (S2) 4+ Good+ Extension (L3) 4+ Good+ Ankle/Foot Strength Ankle and Foot Manual Muscle Testing Right Dorsiflexion (L4) 4+ Good+ Plantarflexion (S1) 4 Good Left Dorsiflexion (L4) 4+ Good+ Plantarflexion (S1) 4 Good PT-OP-Q Treatments Start: 07/05/20 07:34 Freq: Status: Active Protocol: Document 12/02/20 14:30 DCW (Rec: 12/02/20 15:14 DCW [id number]) Cardio Equipment Recumbent Bicycle Duration (Minutes) 6 Resistance 5 Seat Position 5 Gym Equipment Shuttle Recovery Unilateral Squats Details Bilateral Resistance 37# Shuttle Recovery Platform Stable Bilateral Squats Resistance 75# Shuttle Recovery Platform Stable Therapeutic Exercises Standing Exercises marching Standing Exercise Name Toe-taps Side bilateral Resistance 5# Equipment Used 6 steps Hip Abduction Standing Exercise Name Hip Abduction Side bilateral Resistance Yellow T-band Equipment Used // bars Reps/Minutes x15 Hip Extension Standing Exercise Name Hip Extension Side bilateral Resistance Yellow Equipment Used T-band Other Exercises Resisted Side-stepping Other Exercise Name Sidestepping, Forward, Backward Resistance Yellow Equipment Used T-band Manual Therapy Treatment Joint Mobilizations 2 Joint Patella mobs Direction Inf/Sup Grade III PT-OP-T Assessment and Plan Start: 07/05/20 07:34 Freq: Status: Active Protocol: Document 12/02/20 14:30 DCW (Rec: 12/02/20 15:14 DCW [id number]) Physical Therapy Assessment Impairments Impairments Activity Tolerance,Balance, Functional Activities, Functional Mobility,Gait, Integument,Pain,Posture,ROM, Soft Tissue Mobility,Strength, Transfers Other Impairments Personal factors include self- limiting behavior, ongoing use of opioids, assists pt for all tasks despite her demonstrating ability to perform transfers and bed mobility without assist today, obesity. Body systems affected include neuromuscular , musculoskeletal and psychosocial. Her functional presentation is stable to evolving. Goals Six Impairment 6MWT Short Term Goal (STG) Pt will gait train at least 1000 feet in 6 minutes with LRAD to improve community ambulation by 12/05/2020. 08/28/2020: Pt gait trains 563 feet in 6 minutes STG Duration 01/05/21 5 Senior Care Goal (LTG) Pt will present with LE functional index score to reflect no more than 30% impairment to allow improved functional I by 01/05/21. 08/28/2020: LEF score is 66.25 % LTG Duration 01/05/21 Four Senior Care Goal (LTG) Pt will present with improved left knee AROM to at least 3- 115 deg to improve functional transfers LTG Duration 01/05/21 - Improving (3-108) Three Engraver Set Up Operator Goal (LTG) Pt will by able to perform at least 10 reps sit to stand with UE support in 30 sec to improve safety with transfers at home by 11/06/2020. 08/28/2020: Pt cannot perform without UE support (self-limit /does not make good effort). 4 reps and pt stops, self- limits LTG Duration 01/05/21 Two Senior Care Goal (LTG) Pt will be able to get in and OOB I (on plinth, into supine and back off plinth) with I to improve bed mobility at home 08/28/2020: Goal met, though pt states that she cannot do it and requires encouragement. LTG Duration Met One Short Term Goal (STG) Pt will perform progressive HEP with handouts to improve ROM, flexibility, strength, sit to stands, balance and gait. 08/28/2020: Review HEP with primary therapist next treatment date STG Duration Met Assessment Summary Assessment Pt doing pretty well overall, still limited with activity tolerance and low motivation. Physical Therapy Plan Frequency and Duration Frequency of Treatment 2x/Week Duration of Treatment 2 Months Plan of Care Start Date 11/04/20 Plan of Care End Date 01/05/21 Therapeutic Interventions Therapeutic Interventions Aquatic Therapy,Balance Training,Canalithic Repositioning,Gait Training, Home Exercise Program,Manual Therapy,Neuromuscular Re- education,Patient/Caregiver Education,Self-Care/Home Management,Soft Tissue Mobilization,Taping, Therapeutic Activities, Therapeutic Exercises Modalities Cold Pack/Ice Massage,Electric Stimulation,Hot Packs, Ultrasound Next Visit Focus/Plan Next Note Type Treatment Note Next Visit Plan Increased activity tolerance, B LE strength, gait training.
--- NOTE | 2020-12-05 15:15 | PT.OTN ---
Current Diagnoses Unilateral primary osteoarthritis, left knee (12/05/20) Physical Therapy Treatment Note PT-OP-A Visit Information Start: 07/05/20 07:34 Freq: Status: Active Protocol: Document 12/05/20 14:30 DCW (Rec: 12/05/20 15:14 DCW [id number]) Out-Patient Physical Therapy Visit Information Visit Information Visit Type Treatment Note Visit Start Time 14:30 Visit Stop Time 15:15 Total Visit Minutes 45 Visit Number 33 Number of SOLE BUFFER Visits 0 Evaluation Information Evaluation Date 07/05/20 PT-OP-B Current Condition Start: 07/05/20 07:34 Freq: Status: Active Protocol: Document 07/19/20 15:20 DCW (Rec: 07/19/20 15:45 DCW [id number]) Current Condition History of Current Condition Onset Date 10 years Current Complaints Post-op L TKA History of Current Condition Pt returns to therapy today following L TKA on 07/10/20. Pt reports she is in just as much pain today as I was the day after surgery. Pt performs limited ambulation around her home, basically just between her bed, chair, and bathroom. Pt reports she has been using a CPM machine, and is able to get up to 30 degrees flexion. Pt reports pain is about a 6/10 at rest, but is more like an 8/10 if she moves her leg. Pt is also reporting she has had a temperature this past week, hovering around 99 degrees, which is up from her usual temp of 97.6. Pt has been struggling with mobility secondary to pain. Personal Factors Other Personal Factors That May Effect Pt continues to be very self- Therapy/Recovery restrictive due to pain and, more frequently, fear of pain. PT-OP-C Subjective Start: 07/05/20 07:34 Freq: Status: Active Protocol: Document 12/05/20 14:30 DCW (Rec: 12/05/20 15:14 DCW [id number]) OP-PT Subjective Patient Comments Patient Comments Pt very happy beause she and her are scheduled for a vaccination tomorrow. PT-OP-E Functional Tests Start: 07/19/20 15:45 Freq: Status: Active Protocol: Document 11/04/20 15:15 DCW (Rec: 11/04/20 15:46 DCW [id number]) Functional Tests 2 Minute Walk Test Distance 217 Device Used FWW Comments 1.81 ft/sec PT-OP-G Mobility & Gait Start: 07/05/20 07:34 Freq: Status: Active Protocol: Document 11/04/20 15:15 DCW (Rec: 11/04/20 15:46 DCW [id number]) OP Mobility Evaluation Bed Mobility Supine to and from Sit Needs Min Ax1 60% of the time due to low back pain OP Gait Assessment Gait Gait Assistance Required: Standby Assistance Distance (Feet) 217 Assistive Devices Assistive Device Front Wheeled Walker Gait Deviations General Gait Pattern Antalgic,Decreased Feet Clearance,Flexed Trunk Factors Limiting Gait Function Factors Limiting Gait Function Decreased Activity Tolerance, Decreased Strength,Pain Stair Climbing Evaluation Evaluation Level of Assist On Stairs Standby Assistance Devices Stair Climbing Assistive Devices Left Railing,Right Railing Technique/Endurance Stair Climbing Direction Ascend and Descend Stair Climbing Technique Step Over Step PT-OP-J Posture/Palpation/Skin Start: 07/05/20 07:34 Freq: Status: Active Protocol: Document 11/04/20 15:15 DCW (Rec: 11/04/20 15:55 DCW [id number]) Skin Assessment Circumference Measurement 3 Location 10 cm inferior to L Joint Line Measurement (Centimeters) 43.4 Comments 10 cm inerior to R Joint Line = 41.0 2 Location 10 cm superior to L Joint Line Measurement (Centimeters) 50.7 Comments 10 cm superior to R Joint Line = 47.9 1 Location L Joint Line Measurement (Centimeters) 47.8 Comments R Joint line = 45.2 PT-OP-K Range of Motion Start: 07/05/20 07:34 Freq: Status: Active Protocol: Document 11/04/20 15:15 DCW (Rec: 11/04/20 15:46 DCW [id number]) Knee Goniometric Range of Motion Knee Left Knee ROM WFL No Patient Position Sitting Flexion Active (degrees) 108 Extension Active (degrees) 3 PT-OP-M Strength Start: 07/05/20 07:34 Freq: Status: Active Protocol: Document 11/04/20 15:15 DCW (Rec: 11/04/20 15:46 DCW [id number]) Hip Strength Hip Manual Muscle Testing Right Flexion (L2) 3+ Fair+ Abduction 4 Good Adduction 4- Good- Left Flexion (L2) 4 Good Abduction 4 Good Adduction 4 Good Knee Strength Knee Manual Muscle Testing Right Flexion (S2) 4+ Good+ Extension (L3) 4+ Good+ Left Flexion (S2) 4+ Good+ Extension (L3) 4+ Good+ Ankle/Foot Strength Ankle and Foot Manual Muscle Testing Right Dorsiflexion (L4) 4+ Good+ Plantarflexion (S1) 4 Good Left Dorsiflexion (L4) 4+ Good+ Plantarflexion (S1) 4 Good PT-OP-Q Treatments Start: 07/05/20 07:34 Freq: Status: Active Protocol: Document 12/05/20 14:30 DCW (Rec: 12/05/20 15:14 DCW [id number]) Cardio Equipment Recumbent Bicycle Duration (Minutes) 6 Resistance 5 Seat Position 5 Gym Equipment Shuttle Recovery Unilateral Squats Details Bilateral Resistance 37# Shuttle Recovery Platform Stable Bilateral Squats Resistance 75# Shuttle Recovery Platform Stable Therapeutic Exercises Standing Exercises step flexion stretch Standing Exercise Name Step stretch Side bilateral marching Standing Exercise Name Toe-taps Side bilateral Resistance 5# Equipment Used 6 steps Hip Abduction Standing Exercise Name Hip Abduction Side bilateral Resistance Lv 2 Equipment Used T-band Hip Extension Standing Exercise Name Hip Extension Side bilateral Resistance Lv 2 Equipment Used T-band Hamstring Curls Standing Exercise Name Standing HS curls Side bilateral Resistance 5# Equipment Used // bars Other Exercises Resisted Side-stepping Other Exercise Name Sidestepping, Forward, Backward Resistance Yellow Equipment Used T-band Manual Therapy Treatment Joint Mobilizations 2 Joint Patella mobs Direction Inf/Sup Grade III PT-OP-T Assessment and Plan Start: 07/05/20 07:34 Freq: Status: Active Protocol: Document 12/05/20 14:30 DCW (Rec: 12/05/20 15:14 DCW [id number]) Physical Therapy Assessment Impairments Impairments Activity Tolerance,Balance, Functional Activities, Functional Mobility,Gait, Integument,Pain,Posture,ROM, Soft Tissue Mobility,Strength, Transfers Other Impairments Personal factors include self- limiting behavior, ongoing use of opioids, assists pt for all tasks despite her demonstrating ability to perform transfers and bed mobility without assist today, obesity. Body systems affected include neuromuscular , musculoskeletal and psychosocial. Her functional presentation is stable to evolving. Goals Six Impairment 6MWT Short Term Goal (STG) Pt will gait train at least 1000 feet in 6 minutes with LRAD to improve community ambulation by 12/05/2020. 08/28/2020: Pt gait trains 563 feet in 6 minutes STG Duration 01/05/21 5 [employer] Mill Supervisor Goal (LTG) Pt will present with LE functional index score to reflect no more than 30% impairment to allow improved functional I by 01/05/21. 08/28/2020: LEF score is 66.25 % LTG Duration 01/05/21 Four Care Home Goal (LTG) Pt will present with improved left knee AROM to at least 3- 115 deg to improve functional transfers LTG Duration 01/05/21 - Improving (3-108) Three [employer] Supervisor Goal (LTG) Pt will by able to perform at least 10 reps sit to stand with UE support in 30 sec to improve safety with transfers at home by 11/06/2020. 08/28/2020: Pt cannot perform without UE support (self-limit /does not make good effort). 4 reps and pt stops, self- limits LTG Duration 01/05/21 Two Pul[employer] Supervisor Goal (LTG) Pt will be able to get in and OOB I (on plinth, into supine and back off plinth) with I to improve bed mobility at home 08/28/2020: Goal met, though pt states that she cannot do it and requires encouragement. LTG Duration Met One Short Term Goal (STG) Pt will perform progressive HEP with handouts to improve ROM, flexibility, strength, sit to stands, balance and gait. 08/28/2020: Review HEP with primary therapist next treatment date STG Duration Met Assessment Summary Assessment Pt feeling like she is seeing improvement again, can tell her knee mobility is improving . Physical Therapy Plan Frequency and Duration Frequency of Treatment 2x/Week Duration of Treatment 2 Months Plan of Care Start Date 11/04/20 Plan of Care End Date 01/05/21 Therapeutic Interventions Therapeutic Interventions Aquatic Therapy,Balance Training,Canalithic Repositioning,Gait Training, Home Exercise Program,Manual Therapy,Neuromuscular Re- education,Patient/Caregiver Education,Self-Care/Home Management,Soft Tissue Mobilization,Taping, Therapeutic Activities, Therapeutic Exercises Modalities Cold Pack/Ice Massage,Electric Stimulation,Hot Packs, Ultrasound Next Visit Focus/Plan Next Note Type Treatment Note Next Visit Plan Increased activity tolerance, B LE strength, gait training.
--- NOTE | 2020-12-09 15:18 | PT.OTN ---
Current Diagnoses Unilateral primary osteoarthritis, left knee (12/09/20) Physical Therapy Treatment Note PT-OP-A Visit Information Start: 07/05/20 07:34 Freq: Status: Active Protocol: Document 12/09/20 14:30 DCW (Rec: 12/09/20 15:17 DCW [id number]) Out-Patient Physical Therapy Visit Information Visit Information Visit Type Treatment Note Visit Start Time 14:30 Visit Stop Time 15:15 Total Visit Minutes 45 Visit Number 34 Number of CUTTING SUPERVISOR Visits 0 Evaluation Information Evaluation Date 07/05/20 PT-OP-B Current Condition Start: 07/05/20 07:34 Freq: Status: Active Protocol: Document 07/19/20 15:20 DCW (Rec: 07/19/20 15:45 DCW [id number]) Current Condition History of Current Condition Onset Date 10 years Current Complaints Post-op L TKA History of Current Condition Pt returns to therapy today following L TKA on 07/10/20. Pt reports she is in just as much pain today as I was the day after surgery. Pt performs limited ambulation around her home, basically just between her bed, chair, and bathroom. Pt reports she has been using a CPM machine, and is able to get up to 30 degrees flexion. Pt reports pain is about a 6/10 at rest, but is more like an 8/10 if she moves her leg. Pt is also reporting she has had a temperature this past week, hovering around 99 degrees, which is up from her usual temp of 97.6. Pt has been struggling with mobility secondary to pain. Personal Factors Other Personal Factors That May Effect Pt continues to be very self- Therapy/Recovery restrictive due to pain and, more frequently, fear of pain. PT-OP-C Subjective Start: 07/05/20 07:34 Freq: Status: Active Protocol: Document 12/09/20 14:30 DCW (Rec: 12/09/20 15:17 DCW [id number]) OP-PT Subjective Patient Comments Patient Comments Pt reports she felt fine following her Covid vaccination, overall feels like she is about the same. PT-OP-E Functional Tests Start: 07/19/20 15:45 Freq: Status: Active Protocol: Document 11/04/20 15:15 DCW (Rec: 11/04/20 15:46 DCW [id number]) Functional Tests 2 Minute Walk Test Distance 217 Device Used FWW Comments 1.81 ft/sec PT-OP-G Mobility & Gait Start: 07/05/20 07:34 Freq: Status: Active Protocol: Document 11/04/20 15:15 DCW (Rec: 11/04/20 15:46 DCW [id number]) OP Mobility Evaluation Bed Mobility Supine to and from Sit Needs Min Ax1 60% of the time due to low back pain OP Gait Assessment Gait Gait Assistance Required: Standby Assistance Distance (Feet) 217 Assistive Devices Assistive Device Front Wheeled Walker Gait Deviations General Gait Pattern Antalgic,Decreased Feet Clearance,Flexed Trunk Factors Limiting Gait Function Factors Limiting Gait Function Decreased Activity Tolerance, Decreased Strength,Pain Stair Climbing Evaluation Evaluation Level of Assist On Stairs Standby Assistance Devices Stair Climbing Assistive Devices Left Railing,Right Railing Technique/Endurance Stair Climbing Direction Ascend and Descend Stair Climbing Technique Step Over Step PT-OP-J Posture/Palpation/Skin Start: 07/05/20 07:34 Freq: Status: Active Protocol: Document 11/04/20 15:15 DCW (Rec: 11/04/20 15:55 DCW [id number]) Skin Assessment Circumference Measurement 3 Location 10 cm inferior to L Joint Line Measurement (Centimeters) 43.4 Comments 10 cm inerior to R Joint Line = 41.0 2 Location 10 cm superior to L Joint Line Measurement (Centimeters) 50.7 Comments 10 cm superior to R Joint Line = 47.9 1 Location L Joint Line Measurement (Centimeters) 47.8 Comments R Joint line = 45.2 PT-OP-K Range of Motion Start: 07/05/20 07:34 Freq: Status: Active Protocol: Document 11/04/20 15:15 DCW (Rec: 11/04/20 15:46 DCW [id number]) Knee Goniometric Range of Motion Knee Left Knee ROM WFL No Patient Position Sitting Flexion Active (degrees) 108 Extension Active (degrees) 3 PT-OP-M Strength Start: 07/05/20 07:34 Freq: Status: Active Protocol: Document 11/04/20 15:15 DCW (Rec: 11/04/20 15:46 DCW [id number]) Hip Strength Hip Manual Muscle Testing Right Flexion (L2) 3+ Fair+ Abduction 4 Good Adduction 4- Good- Left Flexion (L2) 4 Good Abduction 4 Good Adduction 4 Good Knee Strength Knee Manual Muscle Testing Right Flexion (S2) 4+ Good+ Extension (L3) 4+ Good+ Left Flexion (S2) 4+ Good+ Extension (L3) 4+ Good+ Ankle/Foot Strength Ankle and Foot Manual Muscle Testing Right Dorsiflexion (L4) 4+ Good+ Plantarflexion (S1) 4 Good Left Dorsiflexion (L4) 4+ Good+ Plantarflexion (S1) 4 Good PT-OP-Q Treatments Start: 07/05/20 07:34 Freq: Status: Active Protocol: Document 12/09/20 14:30 DCW (Rec: 12/09/20 15:17 DCW [id number]) Cardio Equipment Recumbent Bicycle Duration (Minutes) 7 Resistance 5 Seat Position 5 Gym Equipment Shuttle Recovery Unilateral Squats Details Bilateral Resistance 37# Shuttle Recovery Platform Stable Bilateral Squats Resistance 75# Shuttle Recovery Platform Stable Therapeutic Exercises Standing Exercises step flexion stretch Standing Exercise Name Step stretch Side bilateral marching Standing Exercise Name Toe-taps Side bilateral Resistance 5# Equipment Used 4 steps Hamstring Curls Standing Exercise Name Standing HS curls Side bilateral Resistance 5# Equipment Used // bars Other Exercises Resisted Side-stepping Other Exercise Name Sidestepping, Forward, Backward Resistance Yellow Equipment Used T-band Manual Therapy Treatment Joint Mobilizations 2 Joint Patella mobs Direction Inf/Sup Grade III PT-OP-T Assessment and Plan Start: 07/05/20 07:34 Freq: Status: Active Protocol: Document 12/09/20 14:30 DCW (Rec: 12/09/20 15:17 DCW [id number]) Physical Therapy Assessment Impairments Impairments Activity Tolerance,Balance, Functional Activities, Functional Mobility,Gait, Integument,Pain,Posture,ROM, Soft Tissue Mobility,Strength, Transfers Other Impairments Personal factors include self- limiting behavior, ongoing use of opioids, assists pt for all tasks despite her demonstrating ability to perform transfers and bed mobility without assist today, obesity. Body systems affected include neuromuscular , musculoskeletal and psychosocial. Her functional presentation is stable to evolving. Goals Six Impairment 6MWT Short Term Goal (STG) Pt will gait train at least 1000 feet in 6 minutes with LRAD to improve community ambulation by 12/05/2020. 08/28/2020: Pt gait trains 563 feet in 6 minutes STG Duration 01/05/21 5 Prison Goal (LTG) Pt will present with LE functional index score to reflect no more than 30% impairment to allow improved functional I by 01/05/21. 08/28/2020: LEF score is 66.25 % LTG Duration 01/05/21 Four Prison Goal (LTG) Pt will present with improved left knee AROM to at least 3- 115 deg to improve functional transfers LTG Duration 01/05/21 - Improving (3-108) Three Prison Goal (LTG) Pt will by able to perform at least 10 reps sit to stand with UE support in 30 sec to improve safety with transfers at home by 11/06/2020. 08/28/2020: Pt cannot perform without UE support (self-limit /does not make good effort). 4 reps and pt stops, self- limits LTG Duration 01/05/21 Two Flight Paramedic Goal (LTG) Pt will be able to get in and OOB I (on plinth, into supine and back off plinth) with I to improve bed mobility at home 08/28/2020: Goal met, though pt states that she cannot do it and requires encouragement. LTG Duration Met One Short Term Goal (STG) Pt will perform progressive HEP with handouts to improve ROM, flexibility, strength, sit to stands, balance and gait. 08/28/2020: Review HEP with primary therapist next treatment date STG Duration Met Assessment Summary Assessment Pt requesting two additional visits at end of current schedule to make up for missed appointments. Pt feels that after that, she won't get much more out of coming in. Feels like her confidence has improved. Physical Therapy Plan Frequency and Duration Frequency of Treatment 2x/Week Duration of Treatment 2 Months Plan of Care Start Date 11/04/20 Plan of Care End Date 01/05/21 Therapeutic Interventions Therapeutic Interventions Aquatic Therapy,Balance Training,Canalithic Repositioning,Gait Training, Home Exercise Program,Manual Therapy,Neuromuscular Re- education,Patient/Caregiver Education,Self-Care/Home Management,Soft Tissue Mobilization,Taping, Therapeutic Activities, Therapeutic Exercises Modalities Cold Pack/Ice Massage,Electric Stimulation,Hot Packs, Ultrasound Next Visit Focus/Plan Next Note Type Treatment Note Next Visit Plan Increased activity tolerance, B LE strength, gait training.
--- NOTE | 2020-12-12 16:02 | PT.OTN ---
Current Diagnoses Unilateral primary osteoarthritis, left knee (12/12/20) Physical Therapy Treatment Note PT-OP-A Visit Information Start: 07/05/20 07:34 Freq: Status: Active Protocol: Document 12/12/20 15:15 DCW (Rec: 12/12/20 16:02 DCW [id number]) Out-Patient Physical Therapy Visit Information Visit Information Visit Type Treatment Note Visit Start Time 15:15 Visit Stop Time 16:00 Total Visit Minutes 45 Visit Number 35 Number of STAFF INTERNIST OFFICE BASED ONLY Visits 0 Evaluation Information Evaluation Date 07/05/20 PT-OP-B Current Condition Start: 07/05/20 07:34 Freq: Status: Active Protocol: Document 07/19/20 15:20 DCW (Rec: 07/19/20 15:45 DCW [id number]) Current Condition History of Current Condition Onset Date 10 years Current Complaints Post-op L TKA History of Current Condition Pt returns to therapy today following L TKA on 07/10/20. Pt reports she is in just as much pain today as I was the day after surgery. Pt performs limited ambulation around her home, basically just between her bed, chair, and bathroom. Pt reports she has been using a CPM machine, and is able to get up to 30 degrees flexion. Pt reports pain is about a 6/10 at rest, but is more like an 8/10 if she moves her leg. Pt is also reporting she has had a temperature this past week, hovering around 99 degrees, which is up from her usual temp of 97.6. Pt has been struggling with mobility secondary to pain. Personal Factors Other Personal Factors That May Effect Pt continues to be very self- Therapy/Recovery restrictive due to pain and, more frequently, fear of pain. PT-OP-C Subjective Start: 07/05/20 07:34 Freq: Status: Active Protocol: Document 12/12/20 15:15 DCW (Rec: 12/12/20 16:02 DCW [id number]) OP-PT Subjective Patient Comments Patient Comments Pt reports she feels good, I took celebrex today. I did alright without it for the rest of the week, but I still take it on PT-OP-E Functional Tests Start: 07/19/20 15:45 Freq: Status: Active Protocol: Document 11/04/20 15:15 DCW (Rec: 11/04/20 15:46 DCW [id number]) Functional Tests 2 Minute Walk Test Distance 217 Device Used FWW Comments 1.81 ft/sec PT-OP-G Mobility & Gait Start: 07/05/20 07:34 Freq: Status: Active Protocol: Document 11/04/20 15:15 DCW (Rec: 11/04/20 15:46 DCW [id number]) OP Mobility Evaluation Bed Mobility Supine to and from Sit Needs Min Ax1 60% of the time due to low back pain OP Gait Assessment Gait Gait Assistance Required: Standby Assistance Distance (Feet) 217 Assistive Devices Assistive Device Front Wheeled Walker Gait Deviations General Gait Pattern Antalgic,Decreased Feet Clearance,Flexed Trunk Factors Limiting Gait Function Factors Limiting Gait Function Decreased Activity Tolerance, Decreased Strength,Pain Stair Climbing Evaluation Evaluation Level of Assist On Stairs Standby Assistance Devices Stair Climbing Assistive Devices Left Railing,Right Railing Technique/Endurance Stair Climbing Direction Ascend and Descend Stair Climbing Technique Step Over Step PT-OP-J Posture/Palpation/Skin Start: 07/05/20 07:34 Freq: Status: Active Protocol: Document 11/04/20 15:15 DCW (Rec: 11/04/20 15:55 DCW [id number]) Skin Assessment Circumference Measurement 3 Location 10 cm inferior to L Joint Line Measurement (Centimeters) 43.4 Comments 10 cm inerior to R Joint Line = 41.0 2 Location 10 cm superior to L Joint Line Measurement (Centimeters) 50.7 Comments 10 cm superior to R Joint Line = 47.9 1 Location L Joint Line Measurement (Centimeters) 47.8 Comments R Joint line = 45.2 PT-OP-K Range of Motion Start: 07/05/20 07:34 Freq: Status: Active Protocol: Document 11/04/20 15:15 DCW (Rec: 11/04/20 15:46 DCW [id number]) Knee Goniometric Range of Motion Knee Left Knee ROM WFL No Patient Position Sitting Flexion Active (degrees) 108 Extension Active (degrees) 3 PT-OP-M Strength Start: 07/05/20 07:34 Freq: Status: Active Protocol: Document 11/04/20 15:15 DCW (Rec: 11/04/20 15:46 DCW [id number]) Hip Strength Hip Manual Muscle Testing Right Flexion (L2) 3+ Fair+ Abduction 4 Good Adduction 4- Good- Left Flexion (L2) 4 Good Abduction 4 Good Adduction 4 Good Knee Strength Knee Manual Muscle Testing Right Flexion (S2) 4+ Good+ Extension (L3) 4+ Good+ Left Flexion (S2) 4+ Good+ Extension (L3) 4+ Good+ Ankle/Foot Strength Ankle and Foot Manual Muscle Testing Right Dorsiflexion (L4) 4+ Good+ Plantarflexion (S1) 4 Good Left Dorsiflexion (L4) 4+ Good+ Plantarflexion (S1) 4 Good PT-OP-Q Treatments Start: 07/05/20 07:34 Freq: Status: Active Protocol: Document 12/12/20 15:15 DCW (Rec: 12/12/20 16:02 DCW [id number]) Cardio Equipment Recumbent Bicycle Duration (Minutes) 6 Resistance 5 Seat Position 5 Gym Equipment Shuttle Recovery Unilateral Squats Details Bilateral Resistance 37# Shuttle Recovery Platform Stable Bilateral Squats Resistance 75# Shuttle Recovery Platform Stable Therapeutic Exercises Standing Exercises step flexion stretch Standing Exercise Name Step stretch Side bilateral Step-ups Standing Exercise Name Step-ups Side bilateral Equipment Used 6 step Hip Extension Standing Exercise Name Hip Extension Side bilateral Resistance Lv 2 Equipment Used T-band Other Exercises Resisted Side-stepping Other Exercise Name Sidestepping, Forward, Backward Resistance Green Equipment Used T-band Manual Therapy Treatment Joint Mobilizations 2 Joint Patella mobs Direction Inf/Sup Grade III PT-OP-T Assessment and Plan Start: 07/05/20 07:34 Freq: Status: Active Protocol: Document 12/12/20 15:15 DCW (Rec: 12/12/20 16:02 DCW [id number]) Physical Therapy Assessment Impairments Impairments Activity Tolerance,Balance, Functional Activities, Functional Mobility,Gait, Integument,Pain,Posture,ROM, Soft Tissue Mobility,Strength, Transfers Other Impairments Personal factors include self- limiting behavior, ongoing use of opioids, assists pt for all tasks despite her demonstrating ability to perform transfers and bed mobility without assist today, obesity. Body systems affected include neuromuscular , musculoskeletal and psychosocial. Her functional presentation is stable to evolving. Goals Six Impairment 6MWT Short Term Goal (STG) Pt will gait train at least 1000 feet in 6 minutes with LRAD to improve community ambulation by 12/05/2020. 08/28/2020: Pt gait trains 563 feet in 6 minutes STG Duration 01/05/21 5 Pbx Repairer Goal (LTG) Pt will present with LE functional index score to reflect no more than 30% impairment to allow improved functional I by 01/05/21. 08/28/2020: LEF score is 66.25 % LTG Duration 01/05/21 Four Pbx Repairer Goal (LTG) Pt will present with improved left knee AROM to at least 3- 115 deg to improve functional transfers LTG Duration 01/05/21 - Improving (3-108) Three Chcf Goal (LTG) Pt will by able to perform at least 10 reps sit to stand with UE support in 30 sec to improve safety with transfers at home by 11/06/2020. 08/28/2020: Pt cannot perform without UE support (self-limit /does not make good effort). 4 reps and pt stops, self- limits LTG Duration 01/05/21 Two Chcf Goal (LTG) Pt will be able to get in and OOB I (on plinth, into supine and back off plinth) with I to improve bed mobility at home 08/28/2020: Goal met, though pt states that she cannot do it and requires encouragement. LTG Duration Met One Short Term Goal (STG) Pt will perform progressive HEP with handouts to improve ROM, flexibility, strength, sit to stands, balance and gait. 08/28/2020: Review HEP with primary therapist next treatment date STG Duration Met Assessment Summary Assessment Pt tolerated treatment well today, had minimal rest break requests. Improved patella mobility. Physical Therapy Plan Frequency and Duration Frequency of Treatment 2x/Week Duration of Treatment 2 Months Plan of Care Start Date 11/04/20 Plan of Care End Date 01/05/21 Therapeutic Interventions Therapeutic Interventions Aquatic Therapy,Balance Training,Canalithic Repositioning,Gait Training, Home Exercise Program,Manual Therapy,Neuromuscular Re- education,Patient/Caregiver Education,Self-Care/Home Management,Soft Tissue Mobilization,Taping, Therapeutic Activities, Therapeutic Exercises Modalities Cold Pack/Ice Massage,Electric Stimulation,Hot Packs, Ultrasound Next Visit Focus/Plan Next Note Type Treatment Note Next Visit Plan Increased activity tolerance, B LE strength, gait training.
--- NOTE | 2020-12-16 15:59 | PT.OTN ---
Current Diagnoses Unilateral primary osteoarthritis, left knee (12/16/20) Physical Therapy Treatment Note PT-OP-A Visit Information Start: 07/05/20 07:34 Freq: Status: Active Protocol: Document 12/16/20 15:15 DCW (Rec: 12/16/20 15:59 DCW [id number]) Out-Patient Physical Therapy Visit Information Visit Information Visit Type Treatment Note Visit Start Time 15:15 Visit Stop Time 16:00 Total Visit Minutes 45 Visit Number 36 Number of DOOR MAKER Visits 0 Evaluation Information Evaluation Date 07/05/20 PT-OP-B Current Condition Start: 07/05/20 07:34 Freq: Status: Active Protocol: Document 07/19/20 15:20 DCW (Rec: 07/19/20 15:45 DCW [id number]) Current Condition History of Current Condition Onset Date 10 years Current Complaints Post-op L TKA History of Current Condition Pt returns to therapy today following L TKA on 07/10/20. Pt reports she is in just as much pain today as I was the day after surgery. Pt performs limited ambulation around her home, basically just between her bed, chair, and bathroom. Pt reports she has been using a CPM machine, and is able to get up to 30 degrees flexion. Pt reports pain is about a 6/10 at rest, but is more like an 8/10 if she moves her leg. Pt is also reporting she has had a temperature this past week, hovering around 99 degrees, which is up from her usual temp of 97.6. Pt has been struggling with mobility secondary to pain. Personal Factors Other Personal Factors That May Effect Pt continues to be very self- Therapy/Recovery restrictive due to pain and, more frequently, fear of pain. PT-OP-C Subjective Start: 07/05/20 07:34 Freq: Status: Active Protocol: Document 12/16/20 15:15 DCW (Rec: 12/16/20 15:59 DCW [id number]) OP-PT Subjective Patient Comments Patient Comments Pt reports her left knee uis great, I don't think that's my problem anymore. PT-OP-E Functional Tests Start: 07/19/20 15:45 Freq: Status: Active Protocol: Document 11/04/20 15:15 DCW (Rec: 11/04/20 15:46 DCW [id number]) Functional Tests 2 Minute Walk Test Distance 217 Device Used FWW Comments 1.81 ft/sec PT-OP-G Mobility & Gait Start: 07/05/20 07:34 Freq: Status: Active Protocol: Document 11/04/20 15:15 DCW (Rec: 11/04/20 15:46 DCW [id number]) OP Mobility Evaluation Bed Mobility Supine to and from Sit Needs Min Ax1 60% of the time due to low back pain OP Gait Assessment Gait Gait Assistance Required: Standby Assistance Distance (Feet) 217 Assistive Devices Assistive Device Front Wheeled Walker Gait Deviations General Gait Pattern Antalgic,Decreased Feet Clearance,Flexed Trunk Factors Limiting Gait Function Factors Limiting Gait Function Decreased Activity Tolerance, Decreased Strength,Pain Stair Climbing Evaluation Evaluation Level of Assist On Stairs Standby Assistance Devices Stair Climbing Assistive Devices Left Railing,Right Railing Technique/Endurance Stair Climbing Direction Ascend and Descend Stair Climbing Technique Step Over Step PT-OP-J Posture/Palpation/Skin Start: 07/05/20 07:34 Freq: Status: Active Protocol: Document 11/04/20 15:15 DCW (Rec: 11/04/20 15:55 DCW [id number]) Skin Assessment Circumference Measurement 3 Location 10 cm inferior to L Joint Line Measurement (Centimeters) 43.4 Comments 10 cm inerior to R Joint Line = 41.0 2 Location 10 cm superior to L Joint Line Measurement (Centimeters) 50.7 Comments 10 cm superior to R Joint Line = 47.9 1 Location L Joint Line Measurement (Centimeters) 47.8 Comments R Joint line = 45.2 PT-OP-K Range of Motion Start: 07/05/20 07:34 Freq: Status: Active Protocol: Document 11/04/20 15:15 DCW (Rec: 11/04/20 15:46 DCW [id number]) Knee Goniometric Range of Motion Knee Left Knee ROM WFL No Patient Position Sitting Flexion Active (degrees) 108 Extension Active (degrees) 3 PT-OP-M Strength Start: 07/05/20 07:34 Freq: Status: Active Protocol: Document 11/04/20 15:15 DCW (Rec: 11/04/20 15:46 DCW [id number]) Hip Strength Hip Manual Muscle Testing Right Flexion (L2) 3+ Fair+ Abduction 4 Good Adduction 4- Good- Left Flexion (L2) 4 Good Abduction 4 Good Adduction 4 Good Knee Strength Knee Manual Muscle Testing Right Flexion (S2) 4+ Good+ Extension (L3) 4+ Good+ Left Flexion (S2) 4+ Good+ Extension (L3) 4+ Good+ Ankle/Foot Strength Ankle and Foot Manual Muscle Testing Right Dorsiflexion (L4) 4+ Good+ Plantarflexion (S1) 4 Good Left Dorsiflexion (L4) 4+ Good+ Plantarflexion (S1) 4 Good PT-OP-Q Treatments Start: 07/05/20 07:34 Freq: Status: Active Protocol: Document 12/16/20 15:15 DCW (Rec: 12/16/20 15:59 DCW [id number]) Cardio Equipment Recumbent Bicycle Duration (Minutes) 6 Resistance 5 Seat Position 5 Gym Equipment Shuttle Recovery Unilateral Squats Details Bilateral Resistance 37# Shuttle Recovery Platform Stable Bilateral Squats Resistance 75# Shuttle Recovery Platform Stable Therapeutic Exercises Sitting Exercises Long Arc Quad Sitting Exercise Name LAQ /c focus on slow eccentric contraction Standing Exercises step flexion stretch Standing Exercise Name Step stretch Side bilateral marching Standing Exercise Name Toe-taps Side bilateral Resistance 5# Equipment Used 4 steps Step-ups Standing Exercise Name Step-downs Side bilateral Equipment Used 6 step Comments Stopped d/t safety concerns Hip Extension Standing Exercise Name Hip Extension Side bilateral Resistance Green Equipment Used T-band Manual Therapy Treatment Joint Mobilizations 2 Joint Patella mobs Direction Inf/Sup Grade III PT-OP-T Assessment and Plan Start: 07/05/20 07:34 Freq: Status: Active Protocol: Document 12/16/20 15:15 DCW (Rec: 12/16/20 15:59 DCW [id number]) Physical Therapy Assessment Impairments Impairments Activity Tolerance,Balance, Functional Activities, Functional Mobility,Gait, Integument,Pain,Posture,ROM, Soft Tissue Mobility,Strength, Transfers Other Impairments Personal factors include self- limiting behavior, ongoing use of opioids, assists pt for all tasks despite her demonstrating ability to perform transfers and bed mobility without assist today, obesity. Body systems affected include neuromuscular , musculoskeletal and psychosocial. Her functional presentation is stable to evolving. Goals Six Impairment 6MWT Short Term Goal (STG) Pt will gait train at least 1000 feet in 6 minutes with LRAD to improve community ambulation by 12/05/2020. 08/28/2020: Pt gait trains 563 feet in 6 minutes STG Duration 01/05/21 5 Alf Goal (LTG) Pt will present with LE functional index score to reflect no more than 30% impairment to allow improved functional I by 01/05/21. 08/28/2020: LEF score is 66.25 % LTG Duration 01/05/21 Four Alf Goal (LTG) Pt will present with improved left knee AROM to at least 3- 115 deg to improve functional transfers LTG Duration 01/05/21 - Improving (3-108) Three Alf Goal (LTG) Pt will by able to perform at least 10 reps sit to stand with UE support in 30 sec to improve safety with transfers at home by 11/06/2020. 08/28/2020: Pt cannot perform without UE support (self-limit /does not make good effort). 4 reps and pt stops, self- limits LTG Duration 01/05/21 Two Clinic Office Assistant Goal (LTG) Pt will be able to get in and OOB I (on plinth, into supine and back off plinth) with I to improve bed mobility at home 08/28/2020: Goal met, though pt states that she cannot do it and requires encouragement. LTG Duration Met One Short Term Goal (STG) Pt will perform progressive HEP with handouts to improve ROM, flexibility, strength, sit to stands, balance and gait. 08/28/2020: Review HEP with primary therapist next treatment date STG Duration Met Assessment Summary Assessment Pt still self-limiting to an extent, does not push herself very well, but reports she is willing to try to increase what she is doing at home, particularly trying to improve hip flexion strengthening. Physical Therapy Plan Frequency and Duration Frequency of Treatment 2x/Week Duration of Treatment 2 Months Plan of Care Start Date 11/04/20 Plan of Care End Date 01/05/21 Therapeutic Interventions Therapeutic Interventions Aquatic Therapy,Balance Training,Canalithic Repositioning,Gait Training, Home Exercise Program,Manual Therapy,Neuromuscular Re- education,Patient/Caregiver Education,Self-Care/Home Management,Soft Tissue Mobilization,Taping, Therapeutic Activities, Therapeutic Exercises Modalities Cold Pack/Ice Massage,Electric Stimulation,Hot Packs, Ultrasound Next Visit Focus/Plan Next Note Type Treatment Note Next Visit Plan Increased activity tolerance, B LE strength, gait training.
--- NOTE | 2020-12-19 15:58 | PT.OTN ---
Current Diagnoses Unilateral primary osteoarthritis, left knee (12/19/20) Physical Therapy Treatment Note PT-OP-A Visit Information Start: 07/05/20 07:34 Freq: Status: Active Protocol: Document 12/19/20 15:15 DCW (Rec: 12/19/20 15:58 DCW [id number]) Out-Patient Physical Therapy Visit Information Visit Information Visit Type Treatment Note Visit Start Time 15:15 Visit Stop Time 16:00 Total Visit Minutes 45 Visit Number 37 Number of SOLE TACKER Visits 0 Evaluation Information Evaluation Date 07/05/20 PT-OP-B Current Condition Start: 07/05/20 07:34 Freq: Status: Active Protocol: Document 07/19/20 15:20 DCW (Rec: 07/19/20 15:45 DCW [id number]) Current Condition History of Current Condition Onset Date 10 years Current Complaints Post-op L TKA History of Current Condition Pt returns to therapy today following L TKA on 07/10/20. Pt reports she is in just as much pain today as I was the day after surgery. Pt performs limited ambulation around her home, basically just between her bed, chair, and bathroom. Pt reports she has been using a CPM machine, and is able to get up to 30 degrees flexion. Pt reports pain is about a 6/10 at rest, but is more like an 8/10 if she moves her leg. Pt is also reporting she has had a temperature this past week, hovering around 99 degrees, which is up from her usual temp of 97.6. Pt has been struggling with mobility secondary to pain. Personal Factors Other Personal Factors That May Effect Pt continues to be very self- Therapy/Recovery restrictive due to pain and, more frequently, fear of pain. PT-OP-C Subjective Start: 07/05/20 07:34 Freq: Status: Active Protocol: Document 12/19/20 15:15 DCW (Rec: 12/19/20 15:58 DCW [id number]) OP-PT Subjective Patient Comments Patient Comments I didn't take any Tylenol or Celebrex today, so we'll see how things go. PT-OP-E Functional Tests Start: 07/19/20 15:45 Freq: Status: Active Protocol: Document 11/04/20 15:15 DCW (Rec: 11/04/20 15:46 DCW [id number]) Functional Tests 2 Minute Walk Test Distance 217 Device Used FWW Comments 1.81 ft/sec PT-OP-G Mobility & Gait Start: 07/05/20 07:34 Freq: Status: Active Protocol: Document 11/04/20 15:15 DCW (Rec: 11/04/20 15:46 DCW [id number]) OP Mobility Evaluation Bed Mobility Supine to and from Sit Needs Min Ax1 60% of the time due to low back pain OP Gait Assessment Gait Gait Assistance Required: Standby Assistance Distance (Feet) 217 Assistive Devices Assistive Device Front Wheeled Walker Gait Deviations General Gait Pattern Antalgic,Decreased Feet Clearance,Flexed Trunk Factors Limiting Gait Function Factors Limiting Gait Function Decreased Activity Tolerance, Decreased Strength,Pain Stair Climbing Evaluation Evaluation Level of Assist On Stairs Standby Assistance Devices Stair Climbing Assistive Devices Left Railing,Right Railing Technique/Endurance Stair Climbing Direction Ascend and Descend Stair Climbing Technique Step Over Step PT-OP-J Posture/Palpation/Skin Start: 07/05/20 07:34 Freq: Status: Active Protocol: Document 11/04/20 15:15 DCW (Rec: 11/04/20 15:55 DCW [id number]) Skin Assessment Circumference Measurement 3 Location 10 cm inferior to L Joint Line Measurement (Centimeters) 43.4 Comments 10 cm inerior to R Joint Line = 41.0 2 Location 10 cm superior to L Joint Line Measurement (Centimeters) 50.7 Comments 10 cm superior to R Joint Line = 47.9 1 Location L Joint Line Measurement (Centimeters) 47.8 Comments R Joint line = 45.2 PT-OP-K Range of Motion Start: 07/05/20 07:34 Freq: Status: Active Protocol: Document 11/04/20 15:15 DCW (Rec: 11/04/20 15:46 DCW [id number]) Knee Goniometric Range of Motion Knee Left Knee ROM WFL No Patient Position Sitting Flexion Active (degrees) 108 Extension Active (degrees) 3 PT-OP-M Strength Start: 07/05/20 07:34 Freq: Status: Active Protocol: Document 11/04/20 15:15 DCW (Rec: 11/04/20 15:46 DCW [id number]) Hip Strength Hip Manual Muscle Testing Right Flexion (L2) 3+ Fair+ Abduction 4 Good Adduction 4- Good- Left Flexion (L2) 4 Good Abduction 4 Good Adduction 4 Good Knee Strength Knee Manual Muscle Testing Right Flexion (S2) 4+ Good+ Extension (L3) 4+ Good+ Left Flexion (S2) 4+ Good+ Extension (L3) 4+ Good+ Ankle/Foot Strength Ankle and Foot Manual Muscle Testing Right Dorsiflexion (L4) 4+ Good+ Plantarflexion (S1) 4 Good Left Dorsiflexion (L4) 4+ Good+ Plantarflexion (S1) 4 Good PT-OP-Q Treatments Start: 07/05/20 07:34 Freq: Status: Active Protocol: Document 12/19/20 15:15 DCW (Rec: 12/19/20 15:58 DCW [id number]) Cardio Equipment Recumbent Bicycle Duration (Minutes) 6 Resistance 5 Seat Position 5 Gym Equipment Shuttle Recovery Unilateral Squats Details Bilateral Resistance 37# Shuttle Recovery Platform Stable Bilateral Squats Resistance 75# Shuttle Recovery Platform Stable Therapeutic Exercises Standing Exercises TKE Standing Exercise Name TKE Side left Resistance Lv 3 Equipment Used T-band step flexion stretch Standing Exercise Name Step stretch Side bilateral Heel/Toe Raises Standing Exercise Name Heel raises/toe raises Side bilateral Reps/Minutes x10 Other Exercises Resisted Side-stepping Other Exercise Name Sidestepping, Forward, Backward Resistance Green Equipment Used T-band Manual Therapy Treatment Joint Mobilizations 2 Joint Patella mobs Direction Inf/Sup Grade III PT-OP-T Assessment and Plan Start: 07/05/20 07:34 Freq: Status: Active Protocol: Document 12/19/20 15:15 DCW (Rec: 12/19/20 15:58 DCW [id number]) Physical Therapy Assessment Impairments Impairments Activity Tolerance,Balance, Functional Activities, Functional Mobility,Gait, Integument,Pain,Posture,ROM, Soft Tissue Mobility,Strength, Transfers Other Impairments Personal factors include self- limiting behavior, ongoing use of opioids, assists pt for all tasks despite her demonstrating ability to perform transfers and bed mobility without assist today, obesity. Body systems affected include neuromuscular , musculoskeletal and psychosocial. Her functional presentation is stable to evolving. Goals Six Impairment 6MWT Short Term Goal (STG) Pt will gait train at least 1000 feet in 6 minutes with LRAD to improve community ambulation by 12/05/2020. 08/28/2020: Pt gait trains 563 feet in 6 minutes STG Duration 01/05/21 5 Mingle Operator Goal (LTG) Pt will present with LE functional index score to reflect no more than 30% impairment to allow improved functional I by 01/05/21. 08/28/2020: LEF score is 66.25 % LTG Duration 01/05/21 Four Mcfp Goal (LTG) Pt will present with improved left knee AROM to at least 3- 115 deg to improve functional transfers LTG Duration 01/05/21 - Improving (3-108) Three Mingle Operator Goal (LTG) Pt will by able to perform at least 10 reps sit to stand with UE support in 30 sec to improve safety with transfers at home by 11/06/2020. 08/28/2020: Pt cannot perform without UE support (self-limit /does not make good effort). 4 reps and pt stops, self- limits LTG Duration 01/05/21 Two Mcfp Goal (LTG) Pt will be able to get in and OOB I (on plinth, into supine and back off plinth) with I to improve bed mobility at home 08/28/2020: Goal met, though pt states that she cannot do it and requires encouragement. LTG Duration Met One Short Term Goal (STG) Pt will perform progressive HEP with handouts to improve ROM, flexibility, strength, sit to stands, balance and gait. 08/28/2020: Review HEP with primary therapist next treatment date STG Duration Met Assessment Summary Assessment Pt did better today, no complaints of fatigues, fully participated in all activities. Physical Therapy Plan Frequency and Duration Frequency of Treatment 2x/Week Duration of Treatment 2 Months Plan of Care Start Date 11/04/20 Plan of Care End Date 01/05/21 Therapeutic Interventions Therapeutic Interventions Aquatic Therapy,Balance Training,Canalithic Repositioning,Gait Training, Home Exercise Program,Manual Therapy,Neuromuscular Re- education,Patient/Caregiver Education,Self-Care/Home Management,Soft Tissue Mobilization,Taping, Therapeutic Activities, Therapeutic Exercises Modalities Cold Pack/Ice Massage,Electric Stimulation,Hot Packs, Ultrasound Next Visit Focus/Plan Next Note Type Treatment Note Next Visit Plan Increased activity tolerance, B LE strength, gait training.
--- NOTE | 2021-01-07 16:46 | PT.OTN ---
Current Diagnoses Unilateral primary osteoarthritis, left knee (01/07/21) Physical Therapy Treatment Note PT-OP-A Visit Information Start: 07/05/20 07:34 Freq: Status: Active Protocol: Document 01/07/21 16:00 DCW (Rec: 01/07/21 16:46 DCW [id number]) Out-Patient Physical Therapy Visit Information Visit Information Visit Type Discharge Summary Visit Start Time 16:00 Visit Stop Time 16:45 Total Visit Minutes 45 Visit Number 38 Number of LEARNING AND DEVELOPMENT ASSISTANT Visits 0 Evaluation Information Evaluation Date 07/05/20 PT-OP-B Current Condition Start: 07/05/20 07:34 Freq: Status: Active Protocol: Document 07/19/20 15:20 DCW (Rec: 07/19/20 15:45 DCW [id number]) Current Condition History of Current Condition Onset Date 10 years Current Complaints Post-op L TKA History of Current Condition Pt returns to therapy today following L TKA on 07/10/20. Pt reports she is in just as much pain today as I was the day after surgery. Pt performs limited ambulation around her home, basically just between her bed, chair, and bathroom. Pt reports she has been using a CPM machine, and is able to get up to 30 degrees flexion. Pt reports pain is about a 6/10 at rest, but is more like an 8/10 if she moves her leg. Pt is also reporting she has had a temperature this past week, hovering around 99 degrees, which is up from her usual temp of 97.6. Pt has been struggling with mobility secondary to pain. Personal Factors Other Personal Factors That May Effect Pt continues to be very self- Therapy/Recovery restrictive due to pain and, more frequently, fear of pain. PT-OP-C Subjective Start: 07/05/20 07:34 Freq: Status: Active Protocol: Document 01/07/21 16:00 DCW (Rec: 01/07/21 16:46 DCW [id number]) OP-PT Subjective Patient Comments Patient Comments Pt feels that her left knee is doing very well, happy with her current level of function, and feels she is appropriate for discharge at this time. PT-OP-E Functional Tests Start: 07/19/20 15:45 Freq: Status: Active Protocol: Document 01/07/21 16:00 DCW (Rec: 01/07/21 16:19 DCW [id number]) Functional Tests 2 Minute Walk Test Distance 249 Device Used FWW Comments 2.08 ft/sec PT-OP-G Mobility & Gait Start: 07/05/20 07:34 Freq: Status: Active Protocol: Document 01/07/21 16:00 DCW (Rec: 01/07/21 16:19 DCW [id number]) OP Mobility Evaluation Bed Mobility Supine to and from Sit Independent OP Gait Assessment Gait Gait Assistance Required: Standby Assistance Distance (Feet) 249 Assistive Devices Assistive Device Front Wheeled Walker Gait Deviations General Gait Pattern Decreased Feet Clearance, Flexed Trunk Factors Limiting Gait Function Factors Limiting Gait Function Decreased Activity Tolerance, Decreased Strength Stair Climbing Evaluation Evaluation Level of Assist On Stairs Standby Assistance Devices Stair Climbing Assistive Devices Left Railing,Right Railing Technique/Endurance Stair Climbing Direction Ascend and Descend Stair Climbing Technique Step Over Step PT-OP-J Posture/Palpation/Skin Start: 07/05/20 07:34 Freq: Status: Active Protocol: Document 11/04/20 15:15 DCW (Rec: 11/04/20 15:55 DCW [id number]) Skin Assessment Circumference Measurement 3 Location 10 cm inferior to L Joint Line Measurement (Centimeters) 43.4 Comments 10 cm inerior to R Joint Line = 41.0 2 Location 10 cm superior to L Joint Line Measurement (Centimeters) 50.7 Comments 10 cm superior to R Joint Line = 47.9 1 Location L Joint Line Measurement (Centimeters) 47.8 Comments R Joint line = 45.2 PT-OP-K Range of Motion Start: 07/05/20 07:34 Freq: Status: Active Protocol: Document 01/07/21 16:00 DCW (Rec: 01/07/21 16:19 DCW [id number]) Knee Goniometric Range of Motion Knee Left Knee ROM WFL No Patient Position Sitting Flexion Active (degrees) 118 Extension Active (degrees) 2 PT-OP-M Strength Start: 07/05/20 07:34 Freq: Status: Active Protocol: Document 01/07/21 16:00 DCW (Rec: 01/07/21 16:19 DCW [id number]) Hip Strength Hip Manual Muscle Testing Right Flexion (L2) 4 Good Abduction 4 Good Adduction 4 Good Left Flexion (L2) 4 Good Abduction 4 Good Adduction 4 Good Knee Strength Knee Manual Muscle Testing Right Flexion (S2) 4+ Good+ Extension (L3) 4+ Good+ Left Flexion (S2) 4+ Good+ Extension (L3) 4+ Good+ Ankle/Foot Strength Ankle and Foot Manual Muscle Testing Right Dorsiflexion (L4) 4+ Good+ Plantarflexion (S1) 4+ Good+ Left Dorsiflexion (L4) 4+ Good+ Plantarflexion (S1) 4+ Good+ PT-OP-Q Treatments Start: 07/05/20 07:34 Freq: Status: Active Protocol: Document 01/07/21 16:00 DCW (Rec: 01/07/21 16:46 DCW [id number]) Gym Equipment Shuttle Recovery Unilateral Squats Details Bilateral Resistance 37# Shuttle Recovery Platform Stable Bilateral Squats Resistance 75# Shuttle Recovery Platform Stable Therapeutic Exercises Standing Exercises marching Standing Exercise Name Toe-taps Side bilateral Resistance 5# Equipment Used 4 steps Heel/Toe Raises Standing Exercise Name Heel raises/toe raises Side bilateral Reps/Minutes x10 Hip Extension Standing Exercise Name Hip Extension Side bilateral Resistance Green Equipment Used T-band Hamstring Curls Standing Exercise Name HS Curls Side bilateral Resistance 5# Other Exercises Resisted Side-stepping Other Exercise Name Sidestepping, Forward, Backward Resistance Green Equipment Used T-band Gait Training Gait Activity Gait in // bars Description Step-through /c UE support Device Used // bars PT-OP-T Assessment and Plan Start: 07/05/20 07:34 Freq: Status: Active Protocol: Document 01/07/21 16:00 DCW (Rec: 01/07/21 16:46 DCW [id number]) Physical Therapy Assessment Impairments Impairments Activity Tolerance,Balance, Functional Activities, Functional Mobility,Gait, Integument,Pain,Posture,ROM, Soft Tissue Mobility,Strength, Transfers Other Impairments Personal factors include self- limiting behavior, ongoing use of opioids, assists pt for all tasks despite her demonstrating ability to perform transfers and bed mobility without assist today, obesity. Body systems affected include neuromuscular , musculoskeletal and psychosocial. Her functional presentation is stable to evolving. Goals Six Impairment 6MWT Short Term Goal (STG) Pt will gait train at least 1000 feet in 6 minutes with LRAD to improve community ambulation by 12/05/2020. 08/28/2020: Pt gait trains 563 feet in 6 minutes STG Duration Improving 5 Gun Examiner Goal (LTG) Pt will present with LE functional index score to reflect no more than 30% impairment to allow improved functional I by 01/05/21. 08/28/2020: LEF score is 66.25 % LTG Duration Improving Four Gun Examiner Goal (LTG) Pt will present with improved left knee AROM to at least 3- 115 deg to improve functional transfers LTG Duration Met Three Gun Examiner Goal (LTG) Pt will by able to perform at least 10 reps sit to stand with UE support in 30 sec to improve safety with transfers at home by 11/06/2020. 08/28/2020: Pt cannot perform without UE support (self-limit /does not make good effort). 4 reps and pt stops, self- limits LTG Duration Met Two Snf Goal (LTG) Pt will be able to get in and OOB I (on plinth, into supine and back off plinth) with I to improve bed mobility at home 08/28/2020: Goal met, though pt states that she cannot do it and requires encouragement. LTG Duration Met One Short Term Goal (STG) Pt will perform progressive HEP with handouts to improve ROM, flexibility, strength, sit to stands, balance and gait. 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 Pt and therapist agree that pt should continue with independent HEP to continue to strengthening, and she is appropriate for discharge at this time. Physical Therapy Plan Frequency and Duration Frequency of Treatment 1x/Week Duration of Treatment 1 day Plan of Care Start Date 01/07/21 Plan of Care End Date 01/08/21 Therapeutic Interventions Therapeutic Interventions Aquatic Therapy,Balance Training,Canalithic Repositioning,Gait Training, Home Exercise Program,Manual Therapy,Neuromuscular Re- education,Patient/Caregiver Education,Self-Care/Home Management,Soft Tissue Mobilization,Taping, Therapeutic Activities, Therapeutic Exercises Modalities Cold Pack/Ice Massage,Electric Stimulation,Hot Packs, Ultrasound Discharge Physical Therapy Discharge Reasons Plateau in Progress Next Visit Focus/Plan Next Note Type Discharge Summary
--- NOTE | 2021-01-07 16:47 | PT.OPPOC ---
Physical, Occupational & Speech Therapy At [facility] Current Diagnoses Unilateral primary osteoarthritis, left knee (01/07/21) Visit Care Team Role Provider Type Noah Jorgensen MD Primary Care Provider Physician Specialty: Internal Medicine Address: [address] [place] [address], [address], [address] Email: [email or web address] Kain Bronson MD Attending Provider Physician Referring Provider Specialty: Orthopedic Surgery Address: [address] [place] [address], [id number] Email: [email or web address] Plan Of Care PT-OP-T Assessment and Plan Start: 07/05/20 07:34 Freq: Status: Active Protocol: Document 01/07/21 16:00 DCW (Rec: 01/07/21 16:46 DCW [id number]) Physical Therapy Assessment Impairments Impairments Activity Tolerance,Balance, Functional Activities, Functional Mobility,Gait, Integument,Pain,Posture,ROM, Soft Tissue Mobility,Strength, Transfers Other Impairments Personal factors include self- limiting behavior, ongoing use of opioids, assists pt for all tasks despite her demonstrating ability to perform transfers and bed mobility without assist today, obesity. Body systems affected include neuromuscular , musculoskeletal and psychosocial. Her functional presentation is stable to evolving. Goals Six Impairment 6MWT Short Term Goal (STG) Pt will gait train at least 1000 feet in 6 minutes with LRAD to improve community ambulation by 12/05/2020. 08/28/2020: Pt gait trains 563 feet in 6 minutes STG Duration Improving 5 Retirement Goal (LTG) Pt will present with LE functional index score to reflect no more than 30% impairment to allow improved functional I by 01/05/21. 08/28/2020: LEF score is 66.25 % LTG Duration Improving Four Physician Office Clin Asst Goal (LTG) Pt will present with improved left knee AROM to at least 3- 115 deg to improve functional transfers LTG Duration Met Three Retirement Goal (LTG) Pt will by able to perform at least 10 reps sit to stand with UE support in 30 sec to improve safety with transfers at home by 11/06/2020. 08/28/2020: Pt cannot perform without UE support (self-limit /does not make good effort). 4 reps and pt stops, self- limits LTG Duration Met Two Retirement Goal (LTG) Pt will be able to get in and OOB I (on plinth, into supine and back off plinth) with I to improve bed mobility at home 08/28/2020: Goal met, though pt states that she cannot do it and requires encouragement. LTG Duration Met One Short Term Goal (STG) Pt will perform progressive HEP with handouts to improve ROM, flexibility, strength, sit to stands, balance and gait. 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 Pt and therapist agree that pt should continue with independent HEP to continue to strengthening, and she is appropriate for discharge at this time. Physical Therapy Plan Frequency and Duration Frequency of Treatment 1x/Week Duration of Treatment 1 day Plan of Care Start Date 01/07/21 Plan of Care End Date 01/08/21 Therapeutic Interventions Therapeutic Interventions Aquatic Therapy,Balance Training,Canalithic Repositioning,Gait Training, Home Exercise Program,Manual Therapy,Neuromuscular Re- education,Patient/Caregiver Education,Self-Care/Home Management,Soft Tissue Mobilization,Taping, Therapeutic Activities, Therapeutic Exercises Modalities Cold Pack/Ice Massage,Electric Stimulation,Hot Packs, Ultrasound Discharge Physical Therapy Discharge Reasons Plateau in Progress Next Visit Focus/Plan Next Note Type Discharge Summary Plan of Care Dates Plan of Care Start Date 01/07/21 Plan of Care End Date 01/08/21 Electronically Signed by: Jey Howe, PT 01/07/21 [id number] Please Sign and Return: I have reviewed this Plan of Care and certify that the skilled therapy services above are required to meet the patient?s needs. Physician Signature Date Printed Name and Credentials Clinical Instructor Signature Printed Name and Credentials
== END 2021-01-10 08:49 | disposition home or self-care (01) ==
LOC: PHYS 16:00
PROVIDERS: PCP Internal Medicine; Referring Provider Orthopaedic Surgery; Visit Provider Orthopaedic Surgery
DX: M17.12 Unilateral primary osteoarthritis, left knee (principal)
CPT/HCPCS: 97110; 97116; 97140; 97161; 97164; 97530; 97535

== ENCOUNTER → 2021-02-12 08:01 | Outpatient (CLI) | payer MEDICARE, SELFPAY ==
[2020-07-10 20:45] VITALS: BMI 40.8
[2021-02-12 09:02] LABS: Hemoglobin A1C% w Est Avg Glu 6.6 % (4.0-6.0)
[2021-02-12 09:14] LABS: BUN Creatinine Ratio 41.7 (6-22); Blood Urea Nitrogen 40 mg/dL (7-17); Calcium 10.4 mg/dL (8.4-10.2); Carbon Dioxide 32 mmol/L (22-32); Chloride 101 mmol/L (98-107); Estimated Glomerular Filt Rate 56.4 mL/min (>60); Glucose 122 mg/dL (80-110); HEMOLYSIS < 15 (0-50); Potassium 4.2 mmol/L (3.4-5.1); Sodium 140 mmol/L (137-145)
== END ==
PROVIDERS: Family Provider Internal Medicine; PCP Internal Medicine; Referring Provider Internal Medicine; Visit Provider Internal Medicine
DX: E11.9 Type 2 diabetes mellitus without complications (principal); I10 Essential (primary) hypertension; N18.2 Chronic kidney disease, stage 2 (mild)
CPT/HCPCS: 36415; 80048; 83036

== ENCOUNTER → 2021-03-12 11:31 | Outpatient (CLI) | payer MEDICARE, SELFPAY ==
[2020-07-10 20:45] VITALS: BMI 40.8
[2021-03-12 12:26] LABS: Appearance Urine UA CLOUDY; Bilirubin Urine UA NEGATIVE (NEGATIVE); Color Urine UA RED; Glucose Urine UA NEGATIVE (Negative); Ketones Urine UA NEGATIVE (NEGATIVE); Leukocyte Esterase Urine UA 1+ (NEGATIVE); Nitrite Urine UA NEGATIVE (Negative); Occult Blood Urine UA 3+ (Negative); Protein Urine UA 2+ (Negative); Urobilinogen Urine UA 0.2 E.U./dL (0.2)
[2021-03-12 12:49] LABS: Bacteria Urine Few (2-10); Culture Indicated Urine Specimen Cultured; RBC Urine 30-100/HPF (0-5/HPF); Squamous Epithelial Cell Urine 1-5 /HPF (0-5/HPF); WBC Urine 5-10/HPF (0-5/HPF)
== END ==
PROVIDERS: Family Provider Internal Medicine; PCP Internal Medicine; Referring Provider Internal Medicine; Visit Provider Internal Medicine
DX: R30.0 Dysuria (principal)
CPT/HCPCS: 81001; 87077; 87086; 87186

== ENCOUNTER 2021-04-16 11:15 | Outpatient (RCR) | payer MEDICARE, SELFPAY ==
[2020-07-10 20:45] VITALS: BMI 40.8
--- NOTE | 2021-02-12 15:44 | PT.OIE ---
Current Diagnoses Stress incontinence (female) (male) (02/12/21) Past Medical History (Last Reviewed 12/10/20 @ 18:46 by Ramandeep León MD) Abnormal EKG Carpal tunnel syndrome (~2005) Chronic renal failure, stage 2 (mild) Colon polyps (02/2007) CVA (cerebral vascular accident) (12/06/19) Degenerative arthritis of left knee Diabetes (Unknown) Fatigue Hyperlipemia (Unknown) Hypertension (Unknown) Leg swelling Low back pain (~2015) Osteoarthritis (Unknown) Status post stroke Unilateral primary osteoarthritis, left knee Past Surgical History (Last Reviewed 12/10/20 @ 18:46 by Ramandeep León MD) History of carpal tunnel release History of knee replacement (2003) History of surgery History of surgery Hx of arthroscopy of right knee Hx of laminectomy S/P total abdominal hysterectomy and bilateral salpingo-oophorectomy Status post delivery Visit Care Team Role Provider Type Noah Jorgensen MD Family Provider Physician Primary Care Provider Specialty: Internal Medicine Address: [address] [place] [address], [facility] [address], [place], [address] Email: [email or web address] Ramandeep León MD Attending Provider Physician Referring Provider Specialty: SCHOOL PSYCHOLOGIST Address: [address] [place] [address], [id number] Email: Physical Therapy Initial Evaluation PT-OP-A Visit Information Start: 02/12/21 07:36 Freq: Status: Active Protocol: Document 02/12/21 14:15 AMB (Rec: 02/14/21 07:46 AMB [email or web address]) Out-Patient Physical Therapy Visit Information Visit Information Visit Type Initial Evaluation Visit Start Time 14:15 Visit Stop Time 15:00 Total Visit Minutes 45 Visit Number 1 PT-OP-B Current Condition Start: 02/12/21 07:36 Freq: Status: Active Protocol: Document 02/12/21 14:15 AMB (Rec: 02/14/21 08:09 AMB [email or web address]) Current Condition History of Current Condition Onset Date chronic Current Complaints stress urinary incontinence History of Current Condition Miracle states she has been leaking for a long time. Tried going to the urologist who suggested reducing caffeine intake, but that didn 't help a lot. At this point I have to use a diaper. Leaks consistently when moving from sit to stand. Voids every 2 hours. 1 delivery via . Denies cough, does have a little constipation. Taking estradiol. Treatment Goals Patient/Caregiver Goals Reduce leaking Prior Functional Status Baseline Function- ADL's Independent Baseline Function- Mobility Independent Current Functional Impairments (Reported) Functional Limitations- ADL's leaking with sit to stand Personal Factors Other Personal Factors That May Effect BMI 38.7, Hx impaired mobility Therapy/Recovery secondary to CVA November 2019 , L TKA, DMII PT-OP-C Subjective Start: 02/12/21 07:36 Freq: Status: Active Protocol: Document 02/12/21 14:15 AMB (Rec: 02/14/21 08:09 AMB [email or web address]) Patient Questionnaires Pelvic Pain and Urgency/Frequency Patient Symptom Scale Pelvic Pain Score 2 PT-OP-I Pelvic Floor Start: 02/14/21 08:03 Freq: Status: Active Protocol: Document 02/12/21 14:15 AMB (Rec: 02/14/21 15:38 AMB [email or web address]) Pelvic Floor Assessment Urine Pelvic Floor Surgery No Leakage Size Large Leakage Cause Cough,Exercise,Lifting,Sneeze Other Leakage Causes sit to stand Leaks Per Day 2 Voiding Frequency every 3 hours Nocturia 1 Pads Used In 24 Hours 2 Urine Pad Type Depends Bowel Bowel Surgery No Bowel Symptoms Constipation Comments Pelvic Floor Comments deferred pelvic floor assessment until next visit per pt request PT-OP-T Assessment and Plan Start: 02/12/21 07:36 Freq: Status: Active Protocol: Document 02/12/21 14:15 AMB (Rec: 02/14/21 08:15 AMB [email or web address]) Physical Therapy Assessment Rehab Potential Rehabilitation Potential Fair Evaluation Complexity Number of Personal Factors/Comorbidities 3 or More Number of Body Systems Impaired 1-2 Clinical Presentation at Evaluation Stable Impairments Impairments Functional Activities,Strength Goals Two Impairment HEP Short Term Goal (STG) Miracle will be independent and consistent with her pelvic floor strengthening home program. STG Duration 4 weeks One Impairment Continence Short Term Goal (STG) Miracle will move from sit to stand while thomas her pelvic floor to reduce her stress urinary incontinence. STG Duration 4 weeks Investigative Shopper Goal (LTG) Miracle will move from sit to stand off of the toilet without leaking urine after voiding. LTG Duration 8 weeks Assessment Summary Assessment Miracle declined internal assessment at evaluation. She agreed to it at next visit. Given her history, assume pelvic floor strength is impaired, and that she is straining with mobility secondary to her weight and weakness re prior CVA and joint replacements/pain. Pt will likely benefit from behavioral changes and pelvic floor strengthening, but progress may be limited by her poor mobility/weight. Physical Therapy Plan Frequency and Duration Frequency of Treatment 1x/Week Duration of Treatment 10 weeks Plan of Care Start Date 02/12/21 Plan of Care End Date 04/23/21 Therapeutic Interventions Therapeutic Interventions Home Exercise Program,Manual Therapy,Neuromuscular Re- education,Self-Care/Home Management,Therapeutic Activities,Therapeutic Exercises Modalities Biofeedback,Electric Stimulation Next Visit Focus/Plan Next Note Type Treatment Note Next Visit Plan Internal assessment/sEMG
--- NOTE | 2021-02-12 15:45 | PT.OPPOC ---
Physical, Occupational & Speech Therapy At [facility] Current Diagnoses Stress incontinence (female) (male) (02/12/21) Visit Care Team Role Provider Type Noah Jorgensen MD Family Provider Physician Primary Care Provider Specialty: Internal Medicine Address: [address] [place] [address], [address], [address] Email: [email or web address] Ramandeep León MD Attending Provider Physician Referring Provider Specialty: SUBSTANCE ABUSE CLINICIAN Address: [address] [place] [address], [id number] Email: Plan Of Care PT-OP-T Assessment and Plan Start: 02/12/21 07:36 Freq: Status: Active Protocol: Document 02/12/21 14:15 AMB (Rec: 02/14/21 08:15 AMB [email or web address]) Physical Therapy Assessment Rehab Potential Rehabilitation Potential Fair Evaluation Complexity Number of Personal Factors/Comorbidities 3 or More Number of Body Systems Impaired 1-2 Clinical Presentation at Evaluation Stable Impairments Impairments Functional Activities,Strength Goals Two Impairment HEP Short Term Goal (STG) Miracle will be independent and consistent with her pelvic floor strengthening home program. STG Duration 4 weeks One Impairment Continence Short Term Goal (STG) Miracle will move from sit to stand while thomas her pelvic floor to reduce her stress urinary incontinence. STG Duration 4 weeks Penitentiary Goal (LTG) Miracle will move from sit to stand off of the toilet without leaking urine after voiding. LTG Duration 8 weeks Assessment Summary Assessment Miracle declined internal assessment at evaluation. She agreed to it at next visit. Given her history, assume pelvic floor strength is impaired, and that she is straining with mobility secondary to her weight and weakness re prior CVA and joint replacements/pain. Pt will likely benefit from behavioral changes and pelvic floor strengthening, but progress may be limited by her poor mobility/weight. Physical Therapy Plan Frequency and Duration Frequency of Treatment 1x/Week Duration of Treatment 10 weeks Plan of Care Start Date 02/12/21 Plan of Care End Date 04/23/21 Therapeutic Interventions Therapeutic Interventions Home Exercise Program,Manual Therapy,Neuromuscular Re- education,Self-Care/Home Management,Therapeutic Activities,Therapeutic Exercises Modalities Biofeedback,Electric Stimulation Next Visit Focus/Plan Next Note Type Treatment Note Next Visit Plan Internal assessment/sEMG Plan of Care Dates Plan of Care Start Date 02/12/21 Plan of Care End Date 04/23/21 Electronically Signed by: Jessica Allan, PT 02/14/21 6225 Please Sign and Return: I have reviewed this Plan of Care and certify that the skilled therapy services above are required to meet the patient?s needs. Physician Signature Date Printed Name and Credentials Clinical Instructor Signature Printed Name and Credentials
--- NOTE | 2021-02-19 14:35 | PT.OTN ---
Current Diagnoses Stress incontinence (female) (male) (02/19/21) Physical Therapy Treatment Note PT-OP-A Visit Information Start: 02/12/21 07:36 Freq: Status: Active Protocol: Document 02/19/21 14:15 AMB (Rec: 02/19/21 16:05 AMB [email or web address]) Out-Patient Physical Therapy Visit Information Visit Information Visit Type Treatment Note Visit Start Time 14:15 Visit Stop Time 15:00 Total Visit Minutes 45 Visit Number 2 PT-OP-B Current Condition Start: 02/12/21 07:36 Freq: Status: Active Protocol: Document 02/12/21 14:15 AMB (Rec: 02/14/21 08:09 AMB [email or web address]) Current Condition History of Current Condition Onset Date chronic Current Complaints stress urinary incontinence History of Current Condition Miracle states she has been leaking for a long time. Tried going to the urologist who suggested reducing caffeine intake, but that didn 't help a lot. At this point I have to use a diaper. Leaks consistently when moving from sit to stand. Voids every 2 hours. 1 delivery via . Denies cough, does have a little constipation. Taking estradiol. Treatment Goals Patient/Caregiver Goals Reduce leaking Prior Functional Status Baseline Function- ADL's Independent Baseline Function- Mobility Independent Current Functional Impairments (Reported) Functional Limitations- ADL's leaking with sit to stand Personal Factors Other Personal Factors That May Effect BMI 38.7, Hx impaired mobility Therapy/Recovery secondary to CVA November 2019 , L TKA, DMII PT-OP-C Subjective Start: 02/12/21 07:36 Freq: Status: Active Protocol: Document 02/19/21 14:15 AMB (Rec: 02/21/21 14:34 AMB [email or web address]) OP-PT Subjective Patient Comments Patient Comments Pt is concerned about the internal exam, but gives her consent to this visit. PT-OP-I Pelvic Floor Start: 02/14/21 08:03 Freq: Status: Active Protocol: Document 02/19/21 14:15 AMB (Rec: 02/21/21 14:34 AMB [email or web address]) Pelvic Floor Assessment Urine Pelvic Floor Surgery No Leakage Size Large Leakage Cause Cough,Exercise,Lifting,Sneeze Other Leakage Causes sit to stand Leaks Per Day 2 Voiding Frequency every 3 hours Nocturia 1 Pads Used In 24 Hours 2 Urine Pad Type Depends Contraction Ability Voluntary Contraction Weak Voluntary Relaxation Weak Manual Muscle Testing Left 1 Manual Muscle Testing Right 1 Manual Muscle Testing Anterior 2 Manual Muscle Testing Posterior 2 Muscle Endurance (Seconds) 4 Number of Quick Contractions In 10 3 Seconds PT-OP-Q Treatments Start: 02/12/21 07:36 Freq: Status: Active Protocol: Document 02/19/21 14:15 AMB (Rec: 02/21/21 14:34 AMB [email or web address]) Neuro Re-Education Treatment Other Activities 1 Details sEMG Comments quick flicks and long holds in hooklying PT-OP-T Assessment and Plan Start: 02/12/21 07:36 Freq: Status: Active Protocol: Document 02/19/21 14:15 AMB (Rec: 02/21/21 14:34 AMB [email or web address]) Physical Therapy Assessment Assessment Summary Assessment Miracle had increased back pain with hooklying, will need to try exercises in seated due to pain, but this may be more difficult for her strengthening. Physical Therapy Plan Next Visit Focus/Plan Next Visit Plan continue exercise progression, consider sitting due to back pain;
--- NOTE | 2021-02-26 16:00 | PT.OTN ---
Current Diagnoses Stress incontinence (female) (male) (02/26/21) Physical Therapy Treatment Note PT-OP-A Visit Information Start: 02/12/21 07:36 Freq: Status: Active Protocol: Document 02/26/21 14:15 AMB (Rec: 02/26/21 14:46 AMB [id number]) Out-Patient Physical Therapy Visit Information Visit Information Visit Type Treatment Note Visit Start Time 14:15 Visit Stop Time 15:00 Total Visit Minutes 45 Visit Number 3 PT-OP-B Current Condition Start: 02/12/21 07:36 Freq: Status: Active Protocol: Document 02/12/21 14:15 AMB (Rec: 02/14/21 08:09 AMB [email or web address]) Current Condition History of Current Condition Onset Date chronic Current Complaints stress urinary incontinence History of Current Condition Miracle states she has been leaking for a long time. Tried going to the urologist who suggested reducing caffeine intake, but that didn 't help a lot. At this point I have to use a diaper. Leaks consistently when moving from sit to stand. Voids every 2 hours. 1 delivery via . Denies cough, does have a little constipation. Taking estradiol. Treatment Goals Patient/Caregiver Goals Reduce leaking Prior Functional Status Baseline Function- ADL's Independent Baseline Function- Mobility Independent Current Functional Impairments (Reported) Functional Limitations- ADL's leaking with sit to stand Personal Factors Other Personal Factors That May Effect BMI 38.7, Hx impaired mobility Therapy/Recovery secondary to CVA November 2019 , L TKA, DMII PT-OP-C Subjective Start: 02/12/21 07:36 Freq: Status: Active Protocol: Document 02/26/21 14:15 AMB (Rec: 02/26/21 14:46 AMB [id number]) OP-PT Subjective Patient Comments Patient Comments Pt brings in bladder diary, continues to leak every time she moves from sit to stand. PT-OP-I Pelvic Floor Start: 02/14/21 08:03 Freq: Status: Active Protocol: Document 02/19/21 14:15 AMB (Rec: 02/21/21 14:34 AMB [email or web address]) Pelvic Floor Assessment Urine Pelvic Floor Surgery No Leakage Size Large Leakage Cause Cough,Exercise,Lifting,Sneeze Other Leakage Causes sit to stand Leaks Per Day 2 Voiding Frequency every 3 hours Nocturia 1 Pads Used In 24 Hours 2 Urine Pad Type Depends Contraction Ability Voluntary Contraction Weak Voluntary Relaxation Weak Manual Muscle Testing Left 1 Manual Muscle Testing Right 1 Manual Muscle Testing Anterior 2 Manual Muscle Testing Posterior 2 Muscle Endurance (Seconds) 4 Number of Quick Contractions In 10 3 Seconds PT-OP-Q Treatments Start: 02/12/21 07:36 Freq: Status: Active Protocol: Document 02/26/21 14:15 AMB (Rec: 03/01/21 08:39 AMB [email or web address]) Therapeutic Exercises Sitting Exercises 2 Sitting Exercise Name roll out Equipment Used #2 tband Reps/Minutes 10 min 1 Sitting Exercise Name roll in with ball Reps/Minutes 10 min Comments pelvic floor TA Standing Exercises 1 Standing Exercise Name mini squat Comments with pelvic floor contraction- fatigues quickly PT-OP-T Assessment and Plan Start: 02/12/21 07:36 Freq: Status: Active Protocol: Document 02/26/21 14:15 AMB (Rec: 03/01/21 08:39 AMB [email or web address]) Physical Therapy Assessment Assessment Summary Assessment Miracle tolerated seated exercises well, much more difficulty with standing, although overall mobility likely contributing more than pelvic floor. Physical Therapy Plan Next Visit Focus/Plan Next Note Type Treatment Note Next Visit Plan Progress standing exercises, athough tolerance is low due to back pain
--- NOTE | 2021-03-05 15:25 | PT.OTN ---
Current Diagnoses Stress incontinence (female) (male) (03/05/21) Physical Therapy Treatment Note PT-OP-A Visit Information Start: 02/12/21 07:36 Freq: Status: Active Protocol: Document 03/05/21 14:15 AMB (Rec: 03/05/21 15:24 AMB [id number]) Out-Patient Physical Therapy Visit Information Visit Information Visit Type Treatment Note Visit Start Time 14:15 Visit Stop Time 15:00 Total Visit Minutes 45 Visit Number 4 PT-OP-B Current Condition Start: 02/12/21 07:36 Freq: Status: Active Protocol: Document 02/12/21 14:15 AMB (Rec: 02/14/21 08:09 AMB [email or web address]) Current Condition History of Current Condition Onset Date chronic Current Complaints stress urinary incontinence History of Current Condition Miracle states she has been leaking for a long time. Tried going to the urologist who suggested reducing caffeine intake, but that didn 't help a lot. At this point I have to use a diaper. Leaks consistently when moving from sit to stand. Voids every 2 hours. 1 delivery via . Denies cough, does have a little constipation. Taking estradiol. Treatment Goals Patient/Caregiver Goals Reduce leaking Prior Functional Status Baseline Function- ADL's Independent Baseline Function- Mobility Independent Current Functional Impairments (Reported) Functional Limitations- ADL's leaking with sit to stand Personal Factors Other Personal Factors That May Effect BMI 38.7, Hx impaired mobility Therapy/Recovery secondary to CVA November 2019 , L TKA, DMII PT-OP-C Subjective Start: 02/12/21 07:36 Freq: Status: Active Protocol: Document 03/05/21 14:15 AMB (Rec: 03/05/21 15:24 AMB [id number]) OP-PT Subjective Patient Comments Patient Comments Miracle has noticed that she is able to be dry if she goes to the bathroom at least every 2-2.5 hours. PT-OP-I Pelvic Floor Start: 02/14/21 08:03 Freq: Status: Active Protocol: Document 02/19/21 14:15 AMB (Rec: 02/21/21 14:34 AMB [email or web address]) Pelvic Floor Assessment Urine Pelvic Floor Surgery No Leakage Size Large Leakage Cause Cough,Exercise,Lifting,Sneeze Other Leakage Causes sit to stand Leaks Per Day 2 Voiding Frequency every 3 hours Nocturia 1 Pads Used In 24 Hours 2 Urine Pad Type Depends Contraction Ability Voluntary Contraction Weak Voluntary Relaxation Weak Manual Muscle Testing Left 1 Manual Muscle Testing Right 1 Manual Muscle Testing Anterior 2 Manual Muscle Testing Posterior 2 Muscle Endurance (Seconds) 4 Number of Quick Contractions In 10 3 Seconds PT-OP-Q Treatments Start: 02/12/21 07:36 Freq: Status: Active Protocol: Document 03/05/21 14:15 AMB (Rec: 03/05/21 15:24 AMB [id number]) Therapeutic Exercises Sitting Exercises 2 Sitting Exercise Name roll out Equipment Used #2 tband Reps/Minutes 10 min 1 Sitting Exercise Name roll in with ball Reps/Minutes 10 min Comments pelvic floor TA Standing Exercises 2 Standing Exercise Name stride stance PF quick flicks Reps/Minutes 10 1 Standing Exercise Name mini squat Comments with pelvic floor contraction- fatigues quickly PT-OP-T Assessment and Plan Start: 02/12/21 07:36 Freq: Status: Active Protocol: Document 03/05/21 14:15 AMB (Rec: 03/05/21 15:24 AMB [id number]) Physical Therapy Assessment Assessment Summary Assessment Miracle does have increased back pain with standing exercises that limits the length of time she can tolerate standing exercises, but is otherwise doing well. Physical Therapy Plan Next Visit Focus/Plan Next Note Type Treatment Note Next Visit Plan Progress standing exercises, athough tolerance is low due to back pain
--- NOTE | 2021-03-19 15:24 | PT.OTN ---
Current Diagnoses Stress incontinence (female) (male) (03/19/21) Physical Therapy Treatment Note PT-OP-A Visit Information Start: 02/12/21 07:36 Freq: Status: Active Protocol: Document 03/19/21 14:15 AMB (Rec: 03/19/21 14:52 AMB [id number]) Out-Patient Physical Therapy Visit Information Visit Information Visit Type Treatment Note Visit Start Time 14:15 Visit Stop Time 15:00 Total Visit Minutes 45 Visit Number 5 PT-OP-B Current Condition Start: 02/12/21 07:36 Freq: Status: Active Protocol: Document 02/12/21 14:15 AMB (Rec: 02/14/21 08:09 AMB [email or web address]) Current Condition History of Current Condition Onset Date chronic Current Complaints stress urinary incontinence History of Current Condition Miracle states she has been leaking for a long time. Tried going to the urologist who suggested reducing caffeine intake, but that didn 't help a lot. At this point I have to use a diaper. Leaks consistently when moving from sit to stand. Voids every 2 hours. 1 delivery via . Denies cough, does have a little constipation. Taking estradiol. Treatment Goals Patient/Caregiver Goals Reduce leaking Prior Functional Status Baseline Function- ADL's Independent Baseline Function- Mobility Independent Current Functional Impairments (Reported) Functional Limitations- ADL's leaking with sit to stand Personal Factors Other Personal Factors That May Effect BMI 38.7, Hx impaired mobility Therapy/Recovery secondary to CVA November 2019 , L TKA, DMII PT-OP-C Subjective Start: 02/12/21 07:36 Freq: Status: Active Protocol: Document 03/19/21 14:15 AMB (Rec: 03/19/21 14:52 AMB [id number]) OP-PT Subjective Patient Comments Patient Comments Pt states she had a bladder infection last week and is on the last day of the antibiotics. 4 bladder infections in the last 1.5 years. PT-OP-I Pelvic Floor Start: 02/14/21 08:03 Freq: Status: Active Protocol: Document 02/19/21 14:15 AMB (Rec: 02/21/21 14:34 AMB [email or web address]) Pelvic Floor Assessment Urine Pelvic Floor Surgery No Leakage Size Large Leakage Cause Cough,Exercise,Lifting,Sneeze Other Leakage Causes sit to stand Leaks Per Day 2 Voiding Frequency every 3 hours Nocturia 1 Pads Used In 24 Hours 2 Urine Pad Type Depends Contraction Ability Voluntary Contraction Weak Voluntary Relaxation Weak Manual Muscle Testing Left 1 Manual Muscle Testing Right 1 Manual Muscle Testing Anterior 2 Manual Muscle Testing Posterior 2 Muscle Endurance (Seconds) 4 Number of Quick Contractions In 10 3 Seconds PT-OP-Q Treatments Start: 02/12/21 07:36 Freq: Status: Active Protocol: Document 03/19/21 14:15 AMB (Rec: 03/19/21 14:52 AMB [id number]) Therapeutic Exercises Sitting Exercises 2 Sitting Exercise Name roll out Equipment Used #2 tband Reps/Minutes 10 min 1 Sitting Exercise Name roll in with ball Reps/Minutes 10 min Comments pelvic floor TA Standing Exercises 2 Standing Exercise Name stride stance PF quick flicks Reps/Minutes 10 1 Standing Exercise Name mini squat Comments with pelvic floor contraction- fatigues quickly PT-OP-T Assessment and Plan Start: 02/12/21 07:36 Freq: Status: Active Protocol: Document 03/19/21 14:15 AMB (Rec: 03/19/21 14:52 AMB [id number]) Physical Therapy Assessment Goals Three Penitentiary Goal (LTG) Pt will by able to perform at least 10 reps sit to stand with UE support in 30 sec to improve safety with transfers at home by 11/06/2020. 08/28/2020: Pt cannot perform without UE support (self-limit /does not make good effort). 4 reps and pt stops, self- limits LTG Duration Met Two Impairment HEP Short Term Goal (STG) Miracle will be independent and consistent with her pelvic floor strengthening home program. STG Duration 4 weeks One Impairment Continence Short Term Goal (STG) Miracle will move from sit to stand while thomas her pelvic floor to reduce her stress urinary incontinence. STG Duration 4 weeks Penitentiary Goal (LTG) Miracle will move from sit to stand off of the toilet without leaking urine after voiding. LTG Duration 8 weeks Assessment Summary Assessment Miracle had a bladder infection last week so had significantly more difficulty being continent, prior to that did have success doing kegels before standing up and not leaking on the way to the bathroom 2x.. Physical Therapy Plan Next Visit Focus/Plan Next Note Type Treatment Note Next Visit Plan Reassess next visit
--- NOTE | 2021-04-16 16:09 | PT.OTN ---
Current Diagnoses Stress incontinence (female) (male) (04/16/21) Physical Therapy Treatment Note PT-OP-A Visit Information Start: 02/12/21 07:36 Freq: Status: Active Protocol: Document 04/16/21 11:15 AMB (Rec: 04/16/21 11:56 AMB [id number]) Out-Patient Physical Therapy Visit Information Visit Information Visit Type Treatment Note Visit Start Time 11:15 Visit Stop Time 12:00 Total Visit Minutes 45 Visit Number 6 PT-OP-B Current Condition Start: 02/12/21 07:36 Freq: Status: Active Protocol: Document 02/12/21 14:15 AMB (Rec: 02/14/21 08:09 AMB [id number]) Current Condition History of Current Condition Onset Date chronic Current Complaints stress urinary incontinence History of Current Condition Miracle states she has been leaking for a long time. Tried going to the urologist who suggested reducing caffeine intake, but that didn 't help a lot. At this point I have to use a diaper. Leaks consistently when moving from sit to stand. Voids every 2 hours. 1 delivery via . Denies cough, does have a little constipation. Taking estradiol. Treatment Goals Patient/Caregiver Goals Reduce leaking Prior Functional Status Baseline Function- ADL's Independent Baseline Function- Mobility Independent Current Functional Impairments (Reported) Functional Limitations- ADL's leaking with sit to stand Personal Factors Other Personal Factors That May Effect BMI 38.7, Hx impaired mobility Therapy/Recovery secondary to CVA November 2019 , L TKA, DMII PT-OP-C Subjective Start: 02/12/21 07:36 Freq: Status: Active Protocol: Document 04/16/21 11:15 AMB (Rec: 04/16/21 11:56 AMB [id number]) OP-PT Subjective Patient Comments Patient Comments Pt states she does better when she is more active. PT-OP-I Pelvic Floor Start: 02/14/21 08:03 Freq: Status: Active Protocol: Document 02/19/21 14:15 AMB (Rec: 02/21/21 14:34 AMB [email or web address]) Pelvic Floor Assessment Urine Pelvic Floor Surgery No Leakage Size Large Leakage Cause Cough,Exercise,Lifting,Sneeze Other Leakage Causes sit to stand Leaks Per Day 2 Voiding Frequency every 3 hours Nocturia 1 Pads Used In 24 Hours 2 Urine Pad Type Depends Contraction Ability Voluntary Contraction Weak Voluntary Relaxation Weak Manual Muscle Testing Left 1 Manual Muscle Testing Right 1 Manual Muscle Testing Anterior 2 Manual Muscle Testing Posterior 2 Muscle Endurance (Seconds) 4 Number of Quick Contractions In 10 3 Seconds PT-OP-Q Treatments Start: 02/12/21 07:36 Freq: Status: Active Protocol: Document 04/16/21 11:15 AMB (Rec: 04/16/21 11:56 AMB [id number]) Therapeutic Exercises Sitting Exercises 2 Sitting Exercise Name roll out Equipment Used #2 tband Reps/Minutes 10 min 1 Sitting Exercise Name roll in with ball Reps/Minutes 10 min Comments pelvic floor TA Standing Exercises 2 Standing Exercise Name stride stance PF quick flicks Reps/Minutes 10 1 Standing Exercise Name mini squat Comments with pelvic floor contraction- fatigues quickly PT-OP-T Assessment and Plan Start: 02/12/21 07:36 Freq: Status: Active Protocol: Document 04/16/21 11:15 AMB (Rec: 04/16/21 11:56 AMB [id number]) Physical Therapy Assessment Goals Three Security Developer Goal (LTG) Pt will by able to perform at least 10 reps sit to stand with UE support in 30 sec to improve safety with transfers at home by 11/06/2020. 08/28/2020: Pt cannot perform without UE support (self-limit /does not make good effort). 4 reps and pt stops, self- limits LTG Duration Met Two Impairment HEP Short Term Goal (STG) Miracle will be independent and consistent with her pelvic floor strengthening home program. STG Duration MET One Impairment Continence Short Term Goal (STG) Miracle will move from sit to stand while thomas her pelvic floor to reduce her stress urinary incontinence. STG Duration MET Security Developer Goal (LTG) Miracle will move from sit to stand off of the toilet without leaking urine after voiding. LTG Duration INTERMITTENTLY MET Assessment Summary Assessment If I let it go more than 3 hours then I leak. I can't do more than 10 squats in a day because of my leg weakness . Pt has noticed on days when she is more mobile, she has less leaking, needing to only use 2 pads in a 24 hour period . The biggest thing is that she needs to void every 2 hours and then she can stay more dry. Also recommended mild weight loss as this is usually quite helpful with IGNACIO . Physical Therapy Plan Discharge Physical Therapy Discharge Reasons Patient Request
== END 2021-04-17 08:50 | disposition home or self-care (01) ==
LOC: PHYS 11:15
PROVIDERS: Family Provider Internal Medicine; PCP Internal Medicine; Referring Provider Obstetrics & Gynecology; Visit Provider Obstetrics & Gynecology
DX: N39.3 Stress incontinence (female) (male) (principal)
CPT/HCPCS: 97110; 97112; 97161

== ENCOUNTER → 2021-08-06 12:58 | Outpatient (CLI) | payer MEDICARE, SELFPAY ==
[2020-07-10 20:45] VITALS: BMI 40.8
[2021-08-06 13:17] LABS: Appearance Urine UA SL CLOUDY; Bilirubin Urine UA NEGATIVE (NEGATIVE); Color Urine UA YELLOW; Glucose Urine UA NEGATIVE (Negative); Ketones Urine UA NEGATIVE (NEGATIVE); Leukocyte Esterase Urine UA 1+ (NEGATIVE); Nitrite Urine UA POSITIVE (Negative); Occult Blood Urine UA 2+ (Negative); Protein Urine UA NEGATIVE (Negative); Specific Gravity Urine UA 1.015 (1.000-1.035); Urobilinogen Urine UA 0.2 E.U./dL (0.2)
[2021-08-06 13:26] LABS: RBC Urine 5-10/HPF (0-5/HPF)
[2021-08-06 13:27] LABS: Amorphous Sediment Urine 1+; Bacteria Urine Many (>30); Culture Indicated Urine Specimen Cultured; Squamous Epithelial Cell Urine 1-5 /HPF (0-5/HPF); WBC Urine 30-100/HPF (0-5/HPF)
== END ==
PROVIDERS: Family Provider Internal Medicine; PCP Internal Medicine; Referring Provider Internal Medicine; Visit Provider Internal Medicine
DX: N39.0 Urinary tract infection, site not specified (principal)
CPT/HCPCS: 81001; 87077; 87086; 87186

== ENCOUNTER → 2021-08-16 11:28 | Outpatient (CLI) | payer MEDICARE, SELFPAY ==
[2020-07-10 20:45] VITALS: BMI 40.8
== END ==
PROVIDERS: Family Provider Internal Medicine; PCP Internal Medicine; Visit Provider Nurse Practitioner
DX: N34.3 Urethral syndrome, unspecified (principal)
CPT/HCPCS: 87077; 87086; 87186

== ENCOUNTER 2021-08-22 13:40 | Emergency (ER) | payer MEDICARE, SELFPAY ==
[2020-07-10 20:45] VITALS: BMI 40.8
[2021-08-22 14:06] VITALS: BP 122/68; PULSE 86; RESP 14; TEMP 36.1; O2SAT 97; BMI 40.3
--- NOTE | 2021-08-22 14:12 | DI.RAD.S_ITS ---
PROCEDURE: XR ELBOW RT MIN 3V INDICATIONS: Right elbow pain TECHNIQUE: 3 views of the elbow were acquired. COMPARISON: None. FINDINGS: Bones: No acute, displaced fracture or dislocation. Cortical irregularity of the lateral epicondyle, which may reflect osteochondral injury. Thin curvilinear calcification overlies the radial head likely reflecting crystal deposition. No suspicious bony lesions. Soft tissues: No elbow joint effusion. Faint calcification overlying the olecranon, likely reflecting a developing enthesophyte. IMPRESSION: No acute osseous abnormality. Dictated by: Iraj Adames M.D. on 08/22/2021 at 14:41 Approved by: Iraj Adames M.D. on 08/22/2021 at 14:43
[2021-08-22 14:33] LABS: Add Manual Diff / Slide Review NO; Basophils Absolute Auto 100 /uL (0-100); Basophils Percent Auto 0.5 % (0-2); Eosinophils Absolute Auto 200 /uL (0-450); Eosinophils Percent Auto 1.4 % (2-4); Hematocrit 42.5 % (36-46); Hemoglobin 13.6 g/dL (12.0-16.0); Lymphocytes Absolute Auto 1300 /uL (1100-4500); Lymphocytes Percent Auto 11.1 % (25-40); Mean Corpuscular Hemoglobin 30.1 PG (26-34); Mean Corpuscular Volume 94.1 fL (80-100); Monocytes Absolute Auto 1000 /uL (0-900); Monocytes Percent Auto 8.6 % (3-14); Neutrophils Absolute Auto 9100 /uL (1500-7000); Neutrophils Percent Auto 78.4 % (50-75); Platelet Count 250 X10^3/uL (150-400); Red Blood Cell Count 4.51 X10^6/uL (4.0-5.2); Red Cell Distribution Width 13.9 % (11.6-14.8); White Blood Cell Count 11.6 X10^3/uL (4.5-11.0)
[2021-08-22 14:53] LABS: Alanine Aminotransferase 26 IU/L (<35); Albumin 3.8 g/dL (3.5-5.0); Albumin Globulin Ratio 1.4 (1.0-2.8); Alkaline Phosphatase 75 U/L (38-126); Aspartate Aminotransferase 22 IU/L (14-36); BUN Creatinine Ratio 27.9 (6-22); Bilirubin Total 0.3 mg/dL (0.2-1.3); Blood Urea Nitrogen 34 mg/dL (7-17); Calcium 10.2 mg/dL (8.4-10.2); Carbon Dioxide 28 mmol/L (22-32); Chloride 98 mmol/L (98-107); Estimated Glomerular Filt Rate 42.7 mL/min (>60); Globulin 2.8 g/dL (1.7-4.1); Glucose 224 mg/dL (80-110); HEMOLYSIS < 15 (0-50); Potassium 4.1 mmol/L (3.4-5.1); Sodium 137 mmol/L (137-145); Total Protein 6.6 g/dL (6.3-8.2)
[2021-08-22 15:24] LABS: COVID19 -Nasal RAPID Negative (Negative)
[2021-08-22 17:39] VITALS: BP 144/72; PULSE 82; O2SAT 97
--- NOTE | 2021-08-22 19:11 | ED_ITS ---
HPI - Extremity Problem General Chief complaint: Extremity Problem,Nontraumatic Stated complaint: Rt Arm/Elbow/Wrist, Swelling/Pain/Can't Move Time Seen by Provider: 08/22/21 19:10 Source: patient Mode of arrival: Ambulatory Limitations: no limitations History of Present Illness HPI Narrative: This is a 76-year-old female comes emergency department with complaint of right arm pain that is been present for several days starting more in the elbow and now radiating and moving down towards the wrist. She states it has been swollen felt tight and she has had some warmth and erythema. She states it hurts for her to flex and extend her fingers. At 1st she could not move her elbow at all but now she has increased movement Um but still has discomfort to fully extend. Patient does not appreciate any fevers. No new chest pain or shortness of breath. She has had mild nausea. No vomiting. No other GI or urinary symptoms. She has not had similar symptoms in the past. She was recently on Macrobid followed by Cindy for a UTI and she was concerned about possible tendon injury. She does not recall any falls, trauma or other injuries. She does not recall any cuts or scrapes to the skin that could potentially introduce infection. She does have a history of diabetes, stroke, hypertension, dyslipidemia, CKD stage 3 and prior osteoarthritis. She has never had gout or joint infections that she is aware. She has allergies to several antibiotics and states narcotics often make her nauseated. She did try Ultram at home with minimal improvement, she also tried oral hydromorphone with slightly improved symptoms. She has a follow-up in the next week with her primary care but was told to be evaluated rather than wait. She has not had any prior surgery such as lymph node dissection or mastectomy on the right side. Related Data Home Medications Medication Instructions Recorded Confirmed albuterol sulfate 90 mcg/actuation 0.09 mg IH PRN PRN #0 04/11/11 08/16/21 aerosol inhaler (Proventil HFA) multivitamin 1 cap PO DAILY #0 08/29/12 08/16/21 turmeric 400 mg capsule 1,000 mg PO DAILY #0 11/22/17 08/16/21 cyanocobalamin (vitamin B-12) 1,000 mcg PO QNOON cap 12/29/19 08/16/21 1,000 mcg capsule carvedilol 6.25 mg tablet 6.25 mg PO BID 02/22/20 08/16/21 magnesium oxide 400 mg PO BID tab 02/22/20 08/16/21 miconazole nitrate 2 % topical 1 applictn TOP BID PRN gram 04/22/20 08/16/21 cream aspirin 81 mg tablet,delayed 81 mg PO DAILY 07/03/20 08/16/21 release cholecalciferol (vitamin D3) 25 25 mcg PO DAILY 07/03/20 08/16/21 mcg (1,000 unit) capsule (Vitamin D3) potassium chloride 20 mEq 20 meq PO DAILY 07/03/20 08/16/21 tablet,extended release acetaminophen 325 mg tablet 650 mg PO TID PRN tab 06/05/21 08/16/21 estradiol 0.5 mg tablet 0.25 mg PO DAILY tab 06/05/21 08/16/21 Previous Rx's Medication Instructions Recorded chlorthalidone 25 mg tablet See Rx Instructions .ROUTE 02/01/20 .COMPLEX #90 tablet one touch glucose meter #1 ea 02/02/20 tramadol 50 mg tablet 50 mg PO QID PRN #30 tab 07/11/20 amlodipine 10 mg tablet 10 mg PO DAILY #90 tab 11/19/20 glipizide 5 mg tablet, extended 5 mg PO BID #180 tab 01/10/21 release 24 hr metformin 1,000 mg tablet 1,000 mg PO BID #180 tab 03/17/21 celecoxib 100 mg capsule (Celebrex) 100 mg PO BID PRN #60 cap 03/24/21 lisinopril 20 mg tablet 40 mg PO BID #360 tab 03/31/21 budesonide 180 mcg/actuation 1 inh INHALATION BID #3 ea 05/29/21 breath activated powder inhaler (Pulmicort Flexhaler) Disabled Parking #1 ea 06/05/21 nitrofurantoin macrocrystal 100 mg 100 mg PO BID #14 cap 08/07/21 capsule atorvastatin 40 mg tablet 40 mg PO .q evening #90 tab 08/20/21 prednisone 10 mg tablets in a dose 30 mg PO .day 5 Days #15 ea 08/22/21 pack Allergies Allergy/AdvReac Type Severity Reaction Status Date / Time erythromycin base Allergy Severe Hives Verified 08/22/21 14:06 [ERYTHROMYCIN BASE] Sulfa (Sulfonamide Allergy Severe Hives Verified 08/22/21 14:06 Antibiotics) [SULFA (SULFONAMIDE ANTIBIOTICS)] sulfamethoxazole Allergy Severe Hives Verified 08/22/21 14:06 [From SEPTRA] trimethoprim [From SEPTRA] Allergy Severe Hives Verified 08/22/21 14:06 oxycodone [From PERCOCET] AdvReac Severe Very Verified 08/22/21 14:06 lethargic hydrocodone [HYDROCODONE] AdvReac Mild N/V Verified 08/22/21 14:06 Review of Systems Review of Systems ROS Unobtainable: All systems reviewed & are unremarkable except as noted in HPI and below Patient History Medical History Abnormal EKG Carpal tunnel syndrome (~2005) Chronic renal failure, stage 3a Colon polyps (02/2007) CVA (cerebral vascular accident) (12/06/19) Degenerative arthritis of left knee Diabetes (Unknown) Fatigue Hyperlipemia (Unknown) Hypertension (Unknown) Leg swelling Low back pain (~2015) Osteoarthritis (Unknown) Status post stroke Unilateral primary osteoarthritis, left knee Surgical History History of carpal tunnel release History of knee replacement (2003) History of surgery History of surgery Hx of arthroscopy of right knee Hx of laminectomy S/P total abdominal hysterectomy and bilateral salpingo-oophorectomy Status post delivery Family History Mother Diabetes mellitus Hypertension Degenerative joint disease Obesity Father Aortic aneurysm Hypothyroid Hyperthyroidism Grandfather Heart disease Grandmother Diabetes mellitus Obesity Grandfather No problems noted. Grandmother Pneumonia Social History household members: spouse Smoking Status: Never smoker alcohol intake: never Smoking Status: Never smoker Substance Use Type: does not use Exam Narrative Exam Narrative: GENERAL: Alert and oriented x three, female in mild distress. HEENT: Head normocephalic, atraumatic, EOMI, pupils reactive, face symmetric, moist mucous membranes NECK: Supple, full range of motion CARDIOVASCULAR: Regular rate and rhythm without murmurs, rubs or gallops. RESPIRATORY: Breath sounds equal bilaterally, no wheezes rales or rhonchi. ABDOMEN: Soft, nontender. Normoactive bowel sounds all 4 quadrants. No guarding or rebound, rigidity, no mass : No CVA tenderness EXTREMITIES: Normal range of motion at shoulder and elbow, patient states quite uncomfortable to flex extend the wrist and fingers but she is able to do so. She is swollen on her right in comparison to her left although not dramatically. She does have some erythema tracking from about mid forearm down over her dorsum of her hand, particularly over the wrist.She has 2+ radial pulses bilaterally. Squeeze are equal bilateral with full pull and push. Patient does not have any obvious cuts, abrasions or sources of infection. She does not have any bony tenderness on palpation throughout the extremity. No palpable effusions or bursitis. Clubbing or edema. Neurovascularly intact. NEUROLOGICAL: Cranial nerves II through XII grossly intact. Moving all extremities SKIN: Warm, dry, no petechiae, no rashes or lesions, see above. Initial Vital Signs Initial Vital Signs: Vital Signs Temperature 97.0 F L 08/22/21 14:06 Pulse Rate 86 08/22/21 14:06 Respiratory Rate 14 08/22/21 14:06 Blood Pressure 122/68 08/22/21 14:06 Pulse Oximetry 97 08/22/21 14:06 Course Orders Ordered: Discontinued Medications Prednisone (Prednisone 20 Mg Tablet) 40 mg PO NOW ONE Stop: 08/22/21 20:34 Last Admin: 08/22/21 20:40 Dose: 40 mg Documented by: HGNANCYN Vital Signs Vital signs: Vital Signs - 8 hr 08/22/21 14:06 08/22/21 17:39 Temperature 97.0 F L Pulse Rate 86 82 Respiratory Rate 14 Blood Pressure 122/68 144/72 H Pulse Oximetry 97 97 MDM - Extremity (Nontraumatic) Lab Data Result diagrams: 08/22/21 14:24 08/22/21 14:24 Labs: Lab Results 08/22/21 08/22/21 08/22/21 Range/Units 14:14 14:24 14:24 WBC 11.6 H (4.5-11.0) X10^3/uL RBC 4.51 (4.0-5.2) X10^6/uL Hgb 13.6 (12.0-16.0) g/dL Hct 42.5 (36-46) % MCV 94.1 (80-100) fL MCH 30.1 (26-34) PG MCHC 32.0 (30-36) % RDW 13.9 (11.6-14.8) % Plt Count 250 (150-400) X10^3/uL Neut % (Auto) 78.4 H (50-75) % Lymph % (Auto) 11.1 L (25-40) % Kent[place] % (Auto) 8.6 (3-14) % Eos % (Auto) 1.4 L (2-4) % Baso % (Auto) 0.5 (0-2) % Neut # (Auto) 9100 H (0771-7294) /uL Lymph # (Auto) 1300 (7189-4416) /uL Kenton # (Auto) 1000 H (0-900) /uL Eos # (Auto) 200 (0-450) /uL Baso # (Auto) 100 (0-100) /uL Sodium 137 (137-145) mmol/L Potassium 4.1 (3.4-5.1) mmol/L Chloride 98 (98-107) mmol/L Carbon Dioxide 28 (22-32) mmol/L BUN 34 H (7-17) mg/dL Creatinine 1.22 H (0.52-1.04) mg/dL Estimated GFR 42.7 L (>60) mL/min BUN/Creatinine Ratio 27.9 H (6-22) Glucose 224 H (80-110) mg/dL Uric Acid (2.5-6.2) mg/dL Calcium 10.2 (8.4-10.2) mg/dL Total Bilirubin 0.3 (0.2-1.3) mg/dL AST 22 (14-36) IU/L ALT 26 (<35) IU/L Alkaline Phosphatase 75 (38-126) U/L Total Protein 6.6 (6.3-8.2) g/dL Albumin 3.8 (3.5-5.0) g/dL Globulin 2.8 (1.7-4.1) g/dL Albumin/Globulin Ratio 1.4 (1.0-2.8) SARS-CoV-2 (PCR) Negative (Negative) 08/22/21 Range/Units 14:24 WBC (4.5-11.0) X10^3/uL RBC (4.0-5.2) X10^6/uL Hgb (12.0-16.0) g/dL Hct (36-46) % MCV (80-100) fL MCH (26-34) PG MCHC (30-36) % RDW (11.6-14.8) % Plt Count (150-400) X10^3/uL Neut % (Auto) (50-75) % Lymph % (Auto) (25-40) % Kenton % (Auto) (3-14) % Eos % (Auto) (2-4) % Baso % (Auto) (0-2) % Neut # (Auto) (9212-4631) /uL Lymph # (Auto) (1931-0372) /uL Kenton # (Auto) (0-900) /uL Eos # (Auto) (0-450) /uL Baso # (Auto) (0-100) /uL Sodium (137-145) mmol/L Potassium (3.4-5.1) mmol/L Chloride (98-107) mmol/L Carbon Dioxide (22-32) mmol/L BUN (7-17) mg/dL Creatinine (0.52-1.04) mg/dL Estimated GFR (>60) mL/min BUN/Creatinine Ratio (6-22) Glucose (80-110) mg/dL Uric Acid 8.4 H (2.5-6.2) mg/dL Calcium (8.4-10.2) mg/dL Total Bilirubin (0.2-1.3) mg/dL AST (14-36) IU/L ALT (<35) IU/L Alkaline Phosphatase (38-126) U/L Total Protein (6.3-8.2) g/dL Albumin (3.5-5.0) g/dL Globulin (1.7-4.1) g/dL Albumin/Globulin Ratio (1.0-2.8) SARS-CoV-2 (PCR) (Negative) Urine Dip Bedside Urine Glucose Negative Bedside Urine Bilirubin - Negative Bedside Urine Ketone - Negative Urine Specific [address] 1.025 Bedside Urine Occult Blood - Negative Bedside Urine pH 6.0 Bedside Urine Protein - Negative Bedside Urine Urobilinogen - Negative Bedside Urine Nitrite - Negative Bedside Urine Leukocytes - Negative Esterase Imaging Data Extremity x-ray #1: Radiologist's Impression: Launch?Image [address] [address] XRay Report Signed Patient: Miracle Greco MR#: [id number] : 1945 Acct:[id number] Age/Sex: 76 / F Date of Service: 08/22/21 Loc: ED Accession Number: [id number] ?? Procedure: XR elbow RT min 3V Ordering Provider: Snehal Cornejo MD PROCEDURE:? XR ELBOW RT MIN 3V ? INDICATIONS:? Right elbow pain ? TECHNIQUE:? 3 views of the elbow were acquired.? ? COMPARISON:? None. ? FINDINGS:? ? Bones:? No acute, displaced fracture or dislocation.? Cortical irregularity of the lateral epicondyle, which may reflect osteochondral injury.? Thin curvilinear calcification overlies the radial head likely reflecting crystal deposition.? No suspicious bony lesions.? ? Soft tissues:? No elbow joint effusion.? Faint calcification overlying the olecranon, likely reflecting a developing enthesophyte. ? ? IMPRESSION:? No acute osseous abnormality. ? ? Dictated by: Iraj Adames M.D. on 08/22/2021 at 14:41 ? ? Approved by: Iraj Adames M.D. on 08/22/2021 at 14:43? US - DVT: Radiologist's Impression: negative DVT. [address] [address] Ultrasound Report Signed Patient: Miracle Greco MR#: [id number] : 1945 Acct:[id number] Age/Sex: 76 / F Date of Service: 08/22/21 Loc: ED Accession Number: [id number] ?? Procedure: US periph venous up extrem rt Ordering Provider: Kirsten Collier D.O. PROCEDURE:? US PERIPH VENOUS UP EXTREM RT ? INDICATIONS:? SWELLING, PAIN, REDNESS, WARM ? TECHNIQUE:? Real-time imaging, as well as color and pulse Doppler interrogation, was performed of the right upper extremity deep veins from the inferior neck to the antecubital fossa.? ? COMPARISON:? None. ? FINDINGS:? The internal jugular vein, visualized portions of the subclavian vein, axillary, and brachial veins are free of intraluminal thrombus.? Where physically possible, the veins are normally compressible.? Color and pulse Doppler demonstrate normal intraluminal flow, with expected phasicity and pulsatility.? Additional scanning of the cephalic and basilic veins of the superficial system demonstrate normal compressibility, without thrombus.? There is soft tissue edema in the right wrist. ? IMPRESSION:? No DVT in the right upper extremity. ? ? Dictated by: Albertina Hill M.D. on 08/22/2021 at 21:08 ? ? Approved by: Albertina Hill M.D. on 08/22/2021 at 21:10?? MDM Narrative Medical decision making narrative: This is a 76-year-old female who has had increasing pain swelling and discomfort of her upper extremity particularly over the wrist. Patient does have some erythema and slight warmth but does not have a clear cellulitis. DVT ultrasound is negative, labs do show an elevated uric acid and I suspect she is having a gouty flare. She does have chronic kidney disease occult seen or indomethacin seems inappropriate and was given a dose of oral prednisone here as well as short course. Patient continue with Tylenol as needed for pain which she is comfortable with return precautions discussed. Discharge Plan Departure Patient Disposition: Home Clinical Impression: Acute gout of right wrist Instructions: Gout Activity Restrictions/Additional Instructions: The typical medications to treat gout can cause injury to your kidney's. I would avoid colchicine or indomethacin at this time. Some patients benefit from prednisone for gout and a prescription was sent to your pharmacy at [facility]. You may take your home pain medication as prescribed. Tylenol up to 1000mg every 8 hours as needed for pain. You may continue your home medications as prescribed. Follow-up with your physician this week for recheck. Please return for worsening symptoms, increasing redness, swelling, fevers, new numbness, tingling or weakness, or other new or concerning symptoms. Prescriptions: New prednisone 10 mg tablets,dose pack 30 mg PO .day 5 Days Qty: 15 RF: 0 No Action cyanocobalamin (vitamin B-12) 1,000 mcg capsule 1,000 mcg PO QNOON RF: 0 albuterol sulfate [Proventil HFA] 90 MCG/PUFF HFA aerosol inhaler 0.09 mg IH PRN PRN (Reason: Shortness Of Breath) Qty: 0 RF: 0 multivitamin Capsule 1 cap PO DAILY Qty: 0 RF: 0 turmeric 400 mg Capsule 1,000 mg PO DAILY Qty: 0 RF: 0 chlorthalidone 25 mg tablet See Rx Instructions .ROUTE .COMPLEX Qty: 90 RF: 0 (DME) one touch glucose meter Qty: 1 RF: 0 amlodipine 10 mg tablet 10 mg PO DAILY Qty: 90 RF: 3 glipizide 5 mg tablet extended release 24hr 5 mg PO BID Qty: 180 RF: 3 metformin 1,000 mg tablet 1,000 mg PO BID Qty: 180 RF: 1 celecoxib [Celebrex] 100 mg capsule 100 mg PO BID PRN (Reason: pain) Qty: 60 RF: 4 lisinopril 20 mg tablet 40 mg PO BID Qty: 360 RF: 1 Pulmicort Flexhaler 180 mcg/actuation aerosol powdr breath activated 1 inh inhalation BID Qty: 3 RF: 3 nitrofurantoin macrocrystal 100 mg capsule 100 mg PO BID Qty: 14 RF: 0 atorvastatin 40 mg tablet 40 mg PO .q evening Qty: 90 RF: 1 carvedilol 6.25 mg tablet 6.25 mg PO BID RF: 0 magnesium oxide 400 mg magnesium tablet 400 mg PO BID RF: 0 miconazole nitrate 2 % cream 1 applictn TOP BID PRN (Reason: Breakout) RF: 0 (DME) Disabled Parking See Rx Instructions .ROUTE .MEDSUPPLY Qty: 1 RF: 0 acetaminophen 325 mg tablet 650 mg PO TID PRNRF: 0 estradiol 0.5 mg tablet 0.25 mg PO DAILY RF: 0 potassium chloride 20 mEq Tablet Extended Release 20 meq PO DAILY RF: 0 aspirin 81 mg Tablet,Delayed Release (Dr/Ec) 81 mg PO DAILY RF: 0 cholecalciferol (vitamin D3) [Vitamin D3] 25 mcg (1,000 unit) Capsule 25 mcg PO DAILY RF: 0 tramadol 50 mg Tablet 50 mg PO QID PRN (Reason: Pain, Moderate (4-6)) Qty: 30 RF: 0 Referrals: Noah Jorgensen MD [Primary Care Provider] -
--- NOTE | 2021-08-22 19:24 | DI.US.S_ITS ---
PROCEDURE: US PERIPH VENOUS UP EXTREM RT INDICATIONS: SWELLING, PAIN, REDNESS, WARM TECHNIQUE: Real-time imaging, as well as color and pulse Doppler interrogation, was performed of the right upper extremity deep veins from the inferior neck to the antecubital fossa. COMPARISON: None. FINDINGS: The internal jugular vein, visualized portions of the subclavian vein, axillary, and brachial veins are free of intraluminal thrombus. Where physically possible, the veins are normally compressible. Color and pulse Doppler demonstrate normal intraluminal flow, with expected phasicity and pulsatility. Additional scanning of the cephalic and basilic veins of the superficial system demonstrate normal compressibility, without thrombus. There is soft tissue edema in the right wrist. IMPRESSION: No DVT in the right upper extremity. Dictated by: Albertina Hill M.D. on 08/22/2021 at 21:08 Approved by: Albertina Hill M.D. on 08/22/2021 at 21:10
[2021-08-22 19:41] LABS: Uric Acid 8.4 mg/dL (2.5-6.2)
[2021-08-22] MEDS: predniSONE 20 MG TABLET 40 MG PO (20:40)
[2021-08-22 20:48] VITALS: BP 168/76; PULSE 85; O2SAT 95
== END 2021-08-22 20:48 | disposition home or self-care (01) ==
PROVIDERS: Emergency Medicine; Emergency Provider Emergency Medicine; Family Provider Internal Medicine; PCP Internal Medicine
DX: M10.031 Idiopathic gout, right wrist (principal); Z20.822 Contact with and (suspected) exposure to COVID-19
CPT/HCPCS: 36415; 73080; 80053; 81003; 84550; 85025; 87635; 93971; 99284; C9803

== ENCOUNTER → 2021-08-29 08:59 | Outpatient (CLI) | payer MEDICARE, SELFPAY ==
[2020-07-10 20:45] VITALS: BMI 40.8
[2021-08-29 10:28] LABS: Hemoglobin A1C% w Est Avg Glu 7.7 % (4.0-6.0)
[2021-08-29 10:56] LABS: Alanine Aminotransferase 25 IU/L (<35); Albumin 3.5 g/dL (3.5-5.0); Albumin Globulin Ratio 1.4 (1.0-2.8); Alkaline Phosphatase 64 U/L (38-126); Aspartate Aminotransferase 19 IU/L (14-36); Bilirubin Total 0.4 mg/dL (0.2-1.3); Blood Urea Nitrogen 35 mg/dL (7-17); Calcium 10.3 mg/dL (8.4-10.2); Carbon Dioxide 34 mmol/L (22-32); Chloride 97 mmol/L (98-107); Cholesterol 152 mg/dL (140-199); Estimated Glomerular Filt Rate 46.7 mL/min (>60); Globulin 2.5 g/dL (1.7-4.1); Glucose 139 mg/dL (80-110); HDL Cholesterol 62 mg/dL (40-60); HEMOLYSIS < 15 (0-50); LDL Cholesterol Calculated 59 mg/dL (<100); Potassium 4.1 mmol/L (3.4-5.1); Sodium 139 mmol/L (137-145); Triglycerides 156 mg/dL (35-150)
== END ==
PROVIDERS: Family Provider Internal Medicine; PCP Internal Medicine; Referring Provider Internal Medicine; Visit Provider Internal Medicine
DX: E11.69 Type 2 diabetes mellitus with other specified complication (principal); E78.5 Hyperlipidemia, unspecified; I10 Essential (primary) hypertension; N18.31 Chronic kidney disease, stage 3a
CPT/HCPCS: 36415; 80053; 80061; 83036

== ENCOUNTER → 2021-11-13 10:04 | Outpatient (CLI) | payer MEDICARE, SELFPAY ==
[2020-07-10 20:45] VITALS: BMI 40.8
[2021-11-13 10:27] LABS: Appearance Urine UA CLEAR; Bilirubin Urine UA NEGATIVE (NEGATIVE); Color Urine UA YELLOW; Glucose Urine UA NEGATIVE (Negative); Ketones Urine UA NEGATIVE (NEGATIVE); Leukocyte Esterase Urine UA NEGATIVE (NEGATIVE); Nitrite Urine UA POSITIVE (Negative); Occult Blood Urine UA 1+ (Negative); Protein Urine UA NEGATIVE (Negative); Specific Gravity Urine UA 1.015 (1.000-1.035); Urobilinogen Urine UA 0.2 E.U./dL (0.2)
[2021-11-13 11:34] LABS: pH Urine UA 5.5 (4.5-8.0)
[2021-11-13 11:35] LABS: Bacteria Urine Many (>30); Culture Indicated Urine Specimen Cultured; RBC Urine 1-5/HPF (0-5/HPF); Squamous Epithelial Cell Urine 1-5 /HPF (0-5/HPF); WBC Urine 5-10/HPF (0-5/HPF)
== END ==
PROVIDERS: Family Provider Internal Medicine; PCP Internal Medicine; Referring Provider Student in an Organized Health Care Education/Training Program; Visit Provider Student in an Organized Health Care Education/Training Program
DX: N30.90 Cystitis, unspecified without hematuria (principal)
CPT/HCPCS: 81001; 87077; 87086; 87186

== ENCOUNTER → 2021-11-28 08:42 | Outpatient (CLI) | payer MEDICARE, SELFPAY ==
[2020-07-10 20:45] VITALS: BMI 40.8
[2021-11-28 09:41] LABS: Hemoglobin A1C% w Est Avg Glu 7.2 % (4.0-6.0)
[2021-11-28 10:11] LABS: Alanine Aminotransferase 19 IU/L (<35); Albumin 3.6 g/dL (3.5-5.0); Albumin Globulin Ratio 1.4 (1.0-2.8); Alkaline Phosphatase 76 U/L (38-126); Aspartate Aminotransferase 20 IU/L (14-36); BUN Creatinine Ratio 25.3 (6-22); Bilirubin Total 0.6 mg/dL (0.2-1.3); Blood Urea Nitrogen 24 mg/dL (7-17); Calcium 10.3 mg/dL (8.4-10.2); Carbon Dioxide 33 mmol/L (22-32); Chloride 102 mmol/L (98-107); Globulin 2.6 g/dL (1.7-4.1); Glucose 124 mg/dL (80-110); HEMOLYSIS < 15 (0-50); Potassium 3.7 mmol/L (3.4-5.1); Sodium 139 mmol/L (137-145); Total Protein 6.2 g/dL (6.3-8.2); Uric Acid 7.8 mg/dL (2.5-6.2)
== END ==
PROVIDERS: Family Provider Internal Medicine; PCP Internal Medicine; Referring Provider Internal Medicine; Visit Provider Internal Medicine
DX: E11.9 Type 2 diabetes mellitus without complications (principal); I10 Essential (primary) hypertension; M10.9 Gout, unspecified
CPT/HCPCS: 36415; 80053; 83036; 84550

== ENCOUNTER → 2022-02-09 12:32 | Outpatient (CLI) | payer MEDICARE, SELFPAY ==
[2021-12-01 12:06] VITALS: BMI 40.8
[2022-02-09 13:58] LABS: Appearance Urine UA CLEAR; Bilirubin Urine UA NEGATIVE (NEGATIVE); Color Urine UA YELLOW; Glucose Urine UA NEGATIVE (Negative); Ketones Urine UA NEGATIVE (NEGATIVE); Leukocyte Esterase Urine UA NEGATIVE (NEGATIVE); Nitrite Urine UA NEGATIVE (Negative); Occult Blood Urine UA NEGATIVE (Negative); Protein Urine UA NEGATIVE (Negative); Specific Gravity Urine UA 1.015 (1.000-1.035); Urobilinogen Urine UA 0.2 E.U./dL (0.2)
[2022-02-09 14:00] LABS: Bacteria Urine None Seen; Culture Indicated Urine Cult Not Indicated; RBC Urine None Seen (0-5/HPF); WBC Urine 0-1/HPF (0-5/HPF)
== END ==
PROVIDERS: Family Provider Internal Medicine; PCP Internal Medicine; Referring Provider Internal Medicine; Visit Provider Internal Medicine
DX: N39.0 Urinary tract infection, site not specified (principal)
CPT/HCPCS: 81001

== ENCOUNTER → 2022-03-09 08:42 | Outpatient (CLI) | payer MEDICARE, SELFPAY ==
[2021-12-01 12:06] VITALS: BMI 40.8
[2022-03-09 10:03] LABS: Hemoglobin A1C% w Est Avg Glu 6.9 % (4.0-6.0)
[2022-03-09 10:28] LABS: Alanine Aminotransferase 20 IU/L (<35); Albumin 3.4 g/dL (3.5-5.0); Albumin Globulin Ratio 1.3 (1.0-2.8); Alkaline Phosphatase 76 U/L (38-126); Aspartate Aminotransferase 19 IU/L (14-36); BUN Creatinine Ratio 27.6 (6-22); Bilirubin Total 0.5 mg/dL (0.2-1.3); Blood Urea Nitrogen 27 mg/dL (7-17); Carbon Dioxide 34 mmol/L (22-32); Chloride 101 mmol/L (98-107); Cholesterol 129 mg/dL (140-199); Estimated Glomerular Filt Rate 59 mL/min (>60); Globulin 2.7 g/dL (1.7-4.1); Glucose 116 mg/dL (80-110); HDL Cholesterol 59 mg/dL (40-60); HEMOLYSIS < 15 (0-50); LDL Cholesterol Calculated 51 mg/dL (<100); Magnesium 1.7 mg/dL (1.6-2.3); Potassium 3.9 mmol/L (3.4-5.1); Sodium 140 mmol/L (137-145); Total Protein 6.1 g/dL (6.3-8.2); Triglycerides 96 mg/dL (35-150); Uric Acid 7.3 mg/dL (2.5-6.2)
== END ==
PROVIDERS: Family Provider Internal Medicine; PCP Internal Medicine; Referring Provider Internal Medicine; Visit Provider Internal Medicine
DX: E11.69 Type 2 diabetes mellitus with other specified complication (principal); I10 Essential (primary) hypertension; E78.2 Mixed hyperlipidemia; E11.9 Type 2 diabetes mellitus without complications; N18.31 Chronic kidney disease, stage 3a
CPT/HCPCS: 36415; 80053; 80061; 83036; 83735; 84550

== ENCOUNTER → 2022-07-24 09:07 | Outpatient (CLI) | payer MEDICARE, SELFPAY ==
[2022-05-29 09:21] VITALS: BMI 40.8
[2022-07-24 09:46] LABS: Hemoglobin A1C% w Est Avg Glu 6.2 % (4.0-6.0)
[2022-07-24 09:57] LABS: Appearance Urine UA CLEAR; Bilirubin Urine UA NEGATIVE (NEGATIVE); Color Urine UA YELLOW; Glucose Urine UA NEGATIVE (Negative); Ketones Urine UA NEGATIVE (NEGATIVE); Leukocyte Esterase Urine UA 2+ (NEGATIVE); Nitrite Urine UA NEGATIVE (Negative); Occult Blood Urine UA NEGATIVE (Negative); Protein Urine UA NEGATIVE (Negative); Specific Gravity Urine UA <=1.005 (1.000-1.035); Urobilinogen Urine UA 0.2 E.U./dL (0.2)
[2022-07-24 10:11] LABS: pH Urine UA 5.5 (4.5-8.0)
[2022-07-24 10:23] LABS: Bacteria Urine Many (>30); Culture Indicated Urine Specimen Cultured; RBC Urine 0-1/HPF (0-5/HPF); Squamous Epithelial Cell Urine 5-10 /HPF (0-5/HPF); Urine Comments WBC CLUMPS PRESENT; WBC Urine 30-100/HPF (0-5/HPF)
[2022-07-24 10:25] LABS: BUN Creatinine Ratio 31.7 (6-22); Blood Urea Nitrogen 32 mg/dL (7-17); Calcium 10.2 mg/dL (8.4-10.2); Carbon Dioxide 32 mmol/L (22-32); Chloride 99 mmol/L (98-107); Estimated Glomerular Filt Rate 57 mL/min (>60); Glucose 118 mg/dL (80-110); HEMOLYSIS < 15 (0-50); Potassium 3.9 mmol/L (3.4-5.1); Sodium 140 mmol/L (137-145); Uric Acid 8.4 mg/dL (2.5-6.2)
[2022-07-24 10:41] LABS: Creatinine Urine Random 46.9 mg/dL
[2022-07-24 10:49] LABS: Microalbumi Creatinin Ratio Ur 12.7 ug/mg CR (<30); Microalbumin Urine Random 0.6 mg/dL (0-1.6)
[2022-07-24 11:16] LABS: Albumin 3.8 g/dL (3.5-5.0); Phosphorous 3.6 mg/dL (2.8-4.1)
== END ==
PROVIDERS: Family Provider Internal Medicine; PCP Internal Medicine; Referring Provider Internal Medicine Nephrology; Visit Provider Internal Medicine Nephrology
DX: E11.65 Type 2 diabetes mellitus with hyperglycemia (principal); N18.31 Chronic kidney disease, stage 3a; I10 Essential (primary) hypertension; M10.9 Gout, unspecified
CPT/HCPCS: 36415; 80048; 81001; 82040; 82043; 82570; 83036; 84100; 84550; 87077; 87086; 87186

== ENCOUNTER → 2022-10-12 12:06 | Outpatient (CLI) | payer MEDICARE, SELFPAY ==
[2022-05-29 09:21] VITALS: BMI 40.8
[2022-10-12 14:12] LABS: Appearance Urine UA SL CLOUDY; Bilirubin Urine UA NEGATIVE (NEGATIVE); Color Urine UA YELLOW; Glucose Urine UA NEGATIVE (Negative); Ketones Urine UA NEGATIVE (NEGATIVE); Leukocyte Esterase Urine UA 2+ (NEGATIVE); Nitrite Urine UA NEGATIVE (Negative); Occult Blood Urine UA 1+ (Negative); Protein Urine UA 2+ (Negative); Urobilinogen Urine UA 0.2 E.U./dL (0.2)
[2022-10-12 14:54] LABS: Bacteria Urine Few (2-10); Culture Indicated Urine Specimen Cultured; RBC Urine 0-1/HPF (0-5/HPF); Squamous Epithelial Cell Urine 0-1 /HPF (0-5/HPF); WBC Urine 30-100/HPF (0-5/HPF)
== END ==
PROVIDERS: Family Provider Internal Medicine; PCP Internal Medicine; Referring Provider Internal Medicine; Visit Provider Internal Medicine
DX: R30.0 Dysuria (principal); R39.9 Unspecified symptoms and signs involving the genitourinary system
CPT/HCPCS: 81001; 87077; 87086; 87186

== ENCOUNTER → 2023-04-23 08:12 | Outpatient (CLI) | payer MEDICARE, SELFPAY ==
[2022-05-29 09:21] VITALS: BMI 40.8
[2023-04-23 09:30] LABS: BUN Creatinine Ratio 35.7 (6-22); Blood Urea Nitrogen 30 mg/dL (7-17); Calcium 10.3 mg/dL (8.4-10.2); Carbon Dioxide 34 mmol/L (22-32); Chloride 98 mmol/L (98-107); Estimated Glomerular Filt Rate > 60 mL/min (>60); Glucose 116 mg/dL (80-110); HEMOLYSIS < 15 (0-50); Potassium 3.9 mmol/L (3.4-5.1); Sodium 138 mmol/L (137-145); Uric Acid 7.1 mg/dL (2.5-6.2)
[2023-04-24 05:25] LABS: Labcorp Hemoglobin (Hb) A1c 6.8 % (4.8-5.6)
== END ==
PROVIDERS: Family Provider Internal Medicine; PCP Internal Medicine; Referring Provider Internal Medicine; Visit Provider Internal Medicine
DX: M10.9 Gout, unspecified (principal); E11.9 Type 2 diabetes mellitus without complications
CPT/HCPCS: 36415; 80048; 83036; 84550

== ENCOUNTER → 2023-07-09 08:03 | Outpatient (CLI) | payer MEDICARE, SELFPAY ==
[2022-05-29 09:21] VITALS: BMI 40.8
[2023-07-09 09:21] LABS: Hemoglobin A1C% w Est Avg Glu 6.9 % (4.0-6.0)
[2023-07-09 09:30] LABS: BUN Creatinine Ratio 34.4 (6-22); Blood Urea Nitrogen 31 mg/dL (7-17); Calcium 9.8 mg/dL (8.4-10.2); Carbon Dioxide 31 mmol/L (22-32); Chloride 100 mmol/L (98-107); Estimated Glomerular Filt Rate > 60 mL/min (>60); Glucose 139 mg/dL (80-110); HEMOLYSIS < 15 (0-50); Potassium 4.4 mmol/L (3.4-5.1); Sodium 139 mmol/L (137-145)
[2023-07-09 09:45] LABS: Free T3, Triiodothyronine Free 4.22 pg/mL (2.77-5.27); Free T4, Direct Thyroxine 1.35 ng/dL (0.78-2.19)
[2023-07-09 09:59] LABS: Thyroid Stimulating Hormone 4.22 uIU/mL (0.47-4.68)
== END ==
PROVIDERS: Family Provider Internal Medicine; PCP Internal Medicine; Referring Provider Internal Medicine; Visit Provider Internal Medicine
DX: E11.9 Type 2 diabetes mellitus without complications (principal); I10 Essential (primary) hypertension; E66.01 Morbid (severe) obesity due to excess calories; E03.9 Hypothyroidism, unspecified
CPT/HCPCS: 36415; 80048; 83036; 84439; 84443; 84481

== ENCOUNTER → 2023-07-09 14:28 | Outpatient (CLI) | payer MEDICARE, SELFPAY ==
[2022-05-29 09:21] VITALS: BMI 40.8
== END ==
PROVIDERS: Family Provider Internal Medicine; PCP Internal Medicine; Referring Provider Internal Medicine Critical Care Medicine; Visit Provider Internal Medicine Critical Care Medicine
DX: J45.909 Unspecified asthma, uncomplicated (principal); E11.9 Type 2 diabetes mellitus without complications; I10 Essential (primary) hypertension; E66.01 Morbid (severe) obesity due to excess calories; E03.9 Hypothyroidism, unspecified
CPT/HCPCS: 36415; 80048; 83036; 84439; 84443; 84481; 94060; 94726; 94729

== ENCOUNTER → 2023-10-26 08:17 | Outpatient (CLI) | payer MEDICARE, SELFPAY ==
[2022-05-29 09:21] VITALS: BMI 40.8
[2023-10-26 09:00] LABS: Hemoglobin A1C% w Est Avg Glu 6.3 % (4.0-6.0)
[2023-10-26 09:13] LABS: BUN Creatinine Ratio 41.6 (6-22); Blood Urea Nitrogen 37 mg/dL (7-17); Calcium 10.7 mg/dL (8.4-10.2); Carbon Dioxide 28 mmol/L (22-32); Chloride 101 mmol/L (98-107); Estimated Glomerular Filt Rate > 60 mL/min (>60); Glucose 114 mg/dL (80-110); HEMOLYSIS < 15 (0-50); Potassium 4.1 mmol/L (3.4-5.1); Sodium 137 mmol/L (137-145)
[2023-10-26 15:43] LABS: Creatinine Urine Random 41.4 mg/dL
[2023-10-26 15:46] LABS: Microalbumi Creatinin Ratio Ur 19.3 ug/mg CR (<30); Microalbumin Urine Random 0.8 mg/dL (0-1.6)
== END ==
PROVIDERS: Family Provider Internal Medicine; PCP Internal Medicine; Referring Provider Internal Medicine; Visit Provider Internal Medicine
DX: E11.9 Type 2 diabetes mellitus without complications (principal); N18.31 Chronic kidney disease, stage 3a
CPT/HCPCS: 36415; 80048; 82043; 82570; 83036

== ENCOUNTER → 2023-12-22 11:21 | Outpatient (CLI) | payer MEDICARE, SELFPAY ==
[2022-05-29 09:21] VITALS: BMI 40.8
--- NOTE | 2023-12-22 11:22 | DI.RAD.S_ITS ---
Bone Density Report Name: DEIRDRE RODRIGUEZ Age: 78 Sex: Female Ethnicity: White Date of : 1945 Indication: postmenopausal; screening for osteoporosis; Referring Provider: SAULO PURVIS Study: Bone densitometry was performed. Exam Date: December 22, 2023 Accession number: [id number] Bone Density: Region BMD T-score Z-score Classification AP Spine(L2, L3, L4) 1.519 4.0 6.8 Normal Femoral Neck (Left) 0.965 1.0 3.3 Normal Total Hip (Left) 1.154 1.7 3.8 Normal Femoral Neck (Right) 0.969 1.1 3.4 Normal Total Hip (Right) 1.099 1.3 3.3 Normal Total Hip Mean 1.127 1.5 3.6 Normal World Health Organization criteria for BMD impression classify patients as: Normal (T-score at or above -1.0), Osteopenia (T-score between -1.0 and -2.5), or Osteoporosis (T-score at or below -2.5). 10-year Fracture Risk: FRAX not reported because: All T-scores for Spine Total, Hip Total, Femoral Neck at or above -1.0 Previous Exams: -- Region Exam Age BMD T-score BMD Change BMD Change Date g/cm2 vs Baseline vs Previous -- AP Spine (L2-L4) 12/22/2023 78 1.519 4.0 -0.179 (-10.5%)# -0.179 (-10.5%)# 11/24/2017 72 1.698 5.6 Total Hip(Left) 12/22/2023 78 1.154 1.7 0.039 (3.5%)# 0.039 (3.5%)# 11/24/2017 72 1.115 1.4 Total Hip(Right) 12/22/2023 78 1.099 1.3 -0.036 (-3.2%)# -0.036 (-3.2%)# 11/24/2017 72 1.136 1.6 -- *Denotes significance at 95% confidence level, LSC for AP Spine = 0.022 g/cm2, LSC for Total Hip = 0.027 g/cm2 # Denotes dissimilar scan types or analysis methods Impression: The patient has normal bone mass. No significant bone loss was observed. Discussion: LOW RISK OF FRACTURE; BONE DENSITY IS WELL ABOVE THE MINIMUM DESIRABLE LEVEL AND ABOVE AVERAGE FOR AGE AND SEX AT ALL SKELETAL SITES TESTED. This person's bone density is above expected limits for age and sex. This is rarely clinically significant, but should be pursued if there are significant musculoskeletal complaints. The patient should follow a healthful lifestyle (good nutrition with adequate calcium and vitamin D, and appropriate weight-bearing exercise). Follow-Up: Consider repeating this study in 5 years or sooner if there is some new clinical indication. Reported by: MARIN SPENCER MD on 12/22/2023 11:49:00 AM.
--- NOTE | 2023-12-22 11:22 | DI.US.S_ITS ---
PROCEDURE: US THYROID INDICATIONS: right thyroid nodule TECHNIQUE: Real-time scanning was performed of the thyroid gland, with image documentation. COMPARISON: None. FINDINGS: Right: Thyroid lobe measures 4.1 x 1.5 x 1.9 cm, and is homogeneous in echotexture. Left: Thyroid lobe measures 3.5 x 1.1 x 1.7 cm, and is homogenous in echotexture. Isthmus: Subjectively normal. Nodule number: 1 Location: Right superior thyroid Size: 1.7 x 1.4 x 1.6 cm Composition: Solid Echogenicity: Isoechoic Shape: wider than tall. Margins: Smooth Echogenic foci: None Total points: 3 ACR TI-RADS category: Mildly suspicious Nodule number: 2 Location: Right mid/inferior thyroid Size: 1.1 x 1.1 x 1.1 cm Composition: Solid Echogenicity: Hypoechoic Shape: wider than tall. Margins: Smooth Echogenic foci: None Total points: 4 ACR TI-RADS category: Moderately suspicious Nodule number: 3 Location: Left superior thyroid Size: 0.7 x 0.5 x 0.5 cm Composition: Solid Echogenicity: Mixed echogenicity, predominately hyperechoic Shape: wider than tall. Margins: Ill-defined Echogenic foci: Punctate echogenic foci Total points: 6 ACR TI-RADS category: Moderately suspicious IMPRESSION: Bilateral thyroid nodules as described above. Recommend 1 year follow-up ultrasound based on guidelines provided below. ACR TI-RADS definitions and recommendations: TI-RADS 1 (benign): 0 points. FNA not needed. TI-RADS 2 (not suspicious): 2 points. FNA not needed. TI-RADS 3 (mildly suspicious): 3 points. * FNA if 2.5 cm or larger, follow up if 1.5 cm or larger (at 1, 3, and 5 years). TI-RADS 4 (moderately suspicious): 4-6 points. * FNA if 1.5 cm or larger, follow up if 1 cm or larger (at 1, 2, 3, and 5 years). TI-RADS 5 (highly suspicious): 7 points or more. * FNA if 1 cm or larger, follow up if 0.5 cm or larger (every year for 5 years). Approved by: En Donis M.D. on 12/22/2023 at 17:30
--- NOTE | 2023-12-22 11:35 | DI.DEXA.S_ITS ---
Bone Density Report Name: DEIRDRE RODRIGUEZ Age: 78 Sex: Female Ethnicity: White Date of : 1945 Indication: postmenopausal; screening for osteoporosis; Referring Provider: SAULO PURVIS Study: Bone densitometry was performed. Exam Date: December 22, 2023 Accession number: [id number] Bone Density: Region BMD T-score Z-score Classification AP Spine(L2, L3, L4) 1.519 4.0 6.8 Normal Femoral Neck (Left) 0.965 1.0 3.3 Normal Total Hip (Left) 1.154 1.7 3.8 Normal Femoral Neck (Right) 0.969 1.1 3.4 Normal Total Hip (Right) 1.099 1.3 3.3 Normal Total Hip Mean 1.127 1.5 3.6 Normal World Health Organization criteria for BMD impression classify patients as: Normal (T-score at or above -1.0), Osteopenia (T-score between -1.0 and -2.5), or Osteoporosis (T-score at or below -2.5). 10-year Fracture Risk: FRAX not reported because: All T-scores for Spine Total, Hip Total, Femoral Neck at or above -1.0 Previous Exams: -- Region Exam Age BMD T-score BMD Change BMD Change Date g/cm2 vs Baseline vs Previous -- AP Spine (L2-L4) 12/22/2023 78 1.519 4.0 -0.179 (-10.5%)# -0.179 (-10.5%)# 11/24/2017 72 1.698 5.6 Total Hip(Left) 12/22/2023 78 1.154 1.7 0.039 (3.5%)# 0.039 (3.5%)# 11/24/2017 72 1.115 1.4 Total Hip(Right) 12/22/2023 78 1.099 1.3 -0.036 (-3.2%)# -0.036 (-3.2%)# 11/24/2017 72 1.136 1.6 -- *Denotes significance at 95% confidence level, LSC for AP Spine = 0.022 g/cm2, LSC for Total Hip = 0.027 g/cm2 # Denotes dissimilar scan types or analysis methods Impression: The patient has normal bone mass. No significant bone loss was observed. Discussion: LOW RISK OF FRACTURE; BONE DENSITY IS WELL ABOVE THE MINIMUM DESIRABLE LEVEL AND ABOVE AVERAGE FOR AGE AND SEX AT ALL SKELETAL SITES TESTED. This person's bone density is above expected limits for age and sex. This is rarely clinically significant, but should be pursued if there are significant musculoskeletal complaints. The patient should follow a healthful lifestyle (good nutrition with adequate calcium and vitamin D, and appropriate weight-bearing exercise). Follow-Up: Consider repeating this study in 5 years or sooner if there is some new clinical indication. Reported by: GORDON NAPOLES M.D. on 12/22/2023 8:33:00 AM.
== END ==
PROVIDERS: Family Provider Internal Medicine; PCP Internal Medicine; Referring Provider Internal Medicine; Visit Provider Internal Medicine
DX: M85.89 Other specified disorders of bone density and structure, multiple sites (principal); E04.2 Nontoxic multinodular goiter
CPT/HCPCS: 76536; 77080

== ENCOUNTER → 2024-04-13 07:47 | Outpatient (CLI) | payer MEDICARE, SELFPAY ==
[2022-05-29 09:21] VITALS: BMI 40.8
[2024-04-13 09:31] LABS: Alanine Aminotransferase 29 IU/L (<35); Albumin Globulin Ratio 1.5 (1.0-2.8); Alkaline Phosphatase 72 U/L (38-126); Aspartate Aminotransferase 24 IU/L (14-36); BUN Creatinine Ratio 44.3 (6-22); Bilirubin Total 0.6 mg/dL (0.2-1.3); Blood Urea Nitrogen 43 mg/dL (7-17); Calcium 10.8 mg/dL (8.4-10.2); Carbon Dioxide 30 mmol/L (22-32); Chloride 104 mmol/L (98-107); Cholesterol 155 mg/dL (140-199); Estimated Glomerular Filt Rate 59 mL/min (>60); Globulin 2.6 g/dL (1.7-4.1); Glucose 122 mg/dL (80-110); HDL Cholesterol 74 mg/dL (40-60); HEMOLYSIS < 15 (0-50); LDL Cholesterol Calculated 64 mg/dL (<100); Potassium 4.8 mmol/L (3.4-5.1); Sodium 138 mmol/L (137-145); Total Protein 6.6 g/dL (6.3-8.2); Triglycerides 86 mg/dL (35-150); Uric Acid 7.7 mg/dL (2.5-6.2)
[2024-04-13 09:46] LABS: Free T4, Direct Thyroxine 1.19 ng/dL (0.78-2.19)
[2024-04-13 10:00] LABS: Thyroid Stimulating Hormone 5.32 uIU/mL (0.47-4.68)
[2024-04-14 18:56] LABS: Thyroid Peroxidase Antibodies 34 IU/mL (0-34)
== END ==
PROVIDERS: Family Provider Internal Medicine; PCP Internal Medicine; Referring Provider Internal Medicine; Visit Provider Internal Medicine
DX: E11.69 Type 2 diabetes mellitus with other specified complication (principal); E06.3 Autoimmune thyroiditis; E78.5 Hyperlipidemia, unspecified; E11.9 Type 2 diabetes mellitus without complications; N18.31 Chronic kidney disease, stage 3a; I10 Essential (primary) hypertension; E66.01 Morbid (severe) obesity due to excess calories
CPT/HCPCS: 36415; 80053; 80061; 83036; 84439; 84443; 84550; 86376; 86800

== ENCOUNTER 2024-06-26 16:23 | Emergency (ER) | payer MEDICARE, SELFPAY ==
[2022-05-29 09:21] VITALS: BMI 40.8
[2024-06-26 16:29] VITALS: BP 133/60; PULSE 86; RESP 18; TEMP 36.9; O2SAT 92; BMI 36.6
--- NOTE | 2024-06-26 16:40 | DI.RAD.S_ITS ---
PROCEDURE: XR KNEE RT 1TO2V INDICATIONS: pain TECHNIQUE: 2 views of the knee were acquired. COMPARISON: [facility], CR, XR KNEE LT 1TO2V, 07/10/2020, 13:15. FINDINGS: Bones: No fractures or dislocations. No suspicious bony lesions. Knee arthroplasty. Hardware is intact without hardware fracture or periprosthetic lucency to suggest loosening. Alignment is stable. Soft tissues: [id number] joint effusion. No suspicious soft tissue calcifications. IMPRESSION: Stable knee arthroplasty. Dictated by: Avis Vuong M.D. on 06/26/2024 at 17:21 Approved by: Avis Vuong M.D. on 06/26/2024 at 17:21
[2024-06-26 16:57] LABS: Add Manual Diff / Slide Review NO; Basophils Absolute Auto 100 /uL (0-100); Basophils Percent Auto 0.7 % (0-2); Eosinophils Absolute Auto 100 /uL (0-450); Eosinophils Percent Auto 0.6 % (2-4); Hematocrit 43.4 % (36-46); Hemoglobin 14.3 g/dL (12.0-16.0); Lymphocytes Absolute Auto 1200 /uL (1100-4500); Lymphocytes Percent Auto 10.6 % (25-40); Mean Corpuscular Hemoglobin 30.9 PG (26-34); Mean Corpuscular Volume 93.6 fL (80-100); Monocytes Absolute Auto 900 /uL (0-900); Monocytes Percent Auto 8.4 % (3-14); Neutrophils Absolute Auto 9000 /uL (1500-7000); Neutrophils Percent Auto 79.7 % (50-75); Platelet Count 210 X10^3/uL (150-400); Red Blood Cell Count 4.63 X10^6/uL (4.0-5.2); White Blood Cell Count 11.3 X10^3/uL (4.5-11.0)
[2024-06-26 17:08] LABS: Alanine Aminotransferase 25 IU/L (<35); Albumin 3.6 g/dL (3.5-5.0); Albumin Globulin Ratio 1.2 (1.0-2.8); Alkaline Phosphatase 68 U/L (38-126); Aspartate Aminotransferase 25 IU/L (14-36); BUN Creatinine Ratio 36.3 (6-22); Bilirubin Total 0.7 mg/dL (0.2-1.3); Blood Urea Nitrogen 33 mg/dL (7-17); Calcium 9.7 mg/dL (8.4-10.2); Carbon Dioxide 27 mmol/L (22-32); Chloride 100 mmol/L (98-107); Estimated Glomerular Filt Rate > 60 mL/min (>60); Globulin 2.9 g/dL (1.7-4.1); Glucose 264 mg/dL (80-110); HEMOLYSIS < 15 (0-50); Potassium 4.3 mmol/L (3.4-5.1); Sodium 134 mmol/L (137-145); Total Protein 6.5 g/dL (6.3-8.2); Uric Acid 6.4 mg/dL (2.5-6.2)
[2024-06-26 20:17] VITALS: BP 139/63; PULSE 97; RESP 18; O2SAT 95
--- NOTE | 2024-06-26 21:02 | PC.NURSE ---
KITCHEN HAND note: Patient home care nurse Kim (not me) asked for my assistance to get patient from the waiting room to the bathroom. Wheeled patient into the department. Took 2 person+ to get patient to stand up enough to change brief. Changed patient's garment and got her a warm blanket. Patient expressed how hard it was to stand. Got patient into a clean brief and a warm blanket. Put her back in the waiting room and told CARA Garay.
[2024-06-26 21:27] VITALS: BP 139/66; PULSE 98; RESP 18; TEMP 36.9; O2SAT 96
--- NOTE | 2024-06-26 21:48 | ED_ITS ---
HPI - Extremity Problem General Chief complaint: Extremity Problem,Nontraumatic Stated complaint: Right knee pain, no trauma Time Seen by Provider: 06/26/24 21:28 Source: patient Mode of arrival: EMS History of Present Illness HPI Narrative: 79-year-old female with a history of bilateral total knee replacements type 2 diabetes and gout. She is here with atraumatic right knee pain and swelling. It has been ongoing for 2 days. She has not had fevers or chills she has not had any injury to the knee. Does not recall how her gap was treated previously. Reports that she does not tolerate oxycodone or hydrocodone has used oral hydromorphone successfully in the past for pain. Related Data Home Medications Medication Instructions Recorded Confirmed multivitamin 1 cap PO DAILY ##0 08/29/12 04/18/24 cyanocobalamin (vitamin B-12) 1,000 mcg PO QNOON 12/29/19 04/18/24 1,000 mcg capsule carvedilol 6.25 mg tablet 6.25 mg PO BID 02/22/20 04/18/24 magnesium oxide 400 mg PO BID 02/22/20 04/18/24 miconazole nitrate 2 % topical 1 applictn topical BID PRN Breakout 04/22/20 04/18/24 cream aspirin 81 mg tablet,delayed 81 mg PO DAILY 07/03/20 04/18/24 release cholecalciferol (vitamin D3) 25 25 mcg PO DAILY 07/03/20 04/18/24 mcg (1,000 unit) capsule (Vitamin D3) potassium chloride 20 mEq 20 meq PO DAILY 07/03/20 04/18/24 tablet,extended release acetaminophen 325 mg tablet 650 mg PO TID PRN 06/05/21 04/18/24 hydrochlorothiazide 12.5 mg tablet 12.5 mg PO DAILY 08/26/23 04/18/24 vibegron 75 mg tablet (Gemtesa) 75 mg PO DAILY 08/26/23 04/18/24 turmeric 400 mg capsule cap PO antioxidants 12/14/23 04/18/24 Benefiber Gummies 3 ea PO DAILY 04/18/24 Previous Rx's Medication Instructions Recorded one touch glucose meter #1 ea 02/02/20 tramadol 50 mg tablet 50 mg PO QID PRN Pain, Moderate 07/11/20 (4-6) #30 tabs celecoxib 100 mg capsule (Celebrex) 100 mg PO BID PRN pain #60 caps 03/24/21 Disabled Parking #1 ea 06/05/21 hydromorphone 2 mg tablet 2 mg PO Q4H PRN pain #10 tabs 09/01/21 (Dilaudid) estradiol 0.5 mg tablet 0.25 mg (1/2 x 0.5 mg) PO DAILY 01/21/23 #90 tabs albuterol sulfate 90 mcg/actuation 2 puff inhalation Q4-6H PRN 04/02/23 aerosol inhaler shortness of breath or wheezing #8.5 grams lisinopril 40 mg tablet 40 mg PO BID #180 tabs 04/22/23 glipizide 10 mg tablet, extended 10 mg PO BID #180 tabs 05/03/23 release 24 hr amlodipine 10 mg tablet 10 mg PO DAILY #90 tabs 10/21/23 atorvastatin 40 mg tablet 40 mg PO .q evening #90 tabs 10/21/23 metformin 1,000 mg tablet 1,000 mg PO BID #180 tabs 10/28/23 budesonide 180 mcg/actuation 1 inh inhalation BID #3 ea 11/09/23 breath activated powder inhaler (Pulmicort Flexhaler) blood-glucose sensor (FreeStyle #1 ea 12/14/23 Rossana 3 Sensor device) blood sugar diagnostic (FreeStyle #50 ea 04/18/24 Lite Strips) hydromorphone 2 mg tablet 2 mg PO Q6H PRN pain #10 tabs 06/26/24 prednisone 20 mg tablet 40 mg (2 x 20 mg) PO DAILY gout 06/26/24 #10 tabs Allergies Allergy/AdvReac Type Severity Reaction Status Date / Time erythromycin base Allergy Severe Hives Verified 04/18/24 15:43 [ERYTHROMYCIN BASE] Sulfa (Sulfonamide Allergy Severe Hives Verified 04/18/24 15:43 Antibiotics) [SULFA (SULFONAMIDE ANTIBIOTICS)] sulfamethoxazole Allergy Severe Hives Verified 04/18/24 15:43 [From SEPTRA] trimethoprim [From JULRA] Allergy Severe Hives Verified 04/18/24 15:43 oxycodone [From PERCOCET] AdvReac Severe Very Verified 04/18/24 15:43 lethargic hydrocodone [HYDROCODONE] AdvReac Mild N/V Verified 04/18/24 15:43 Patient History Medical History (Updated 06/26/24 @ 21:57 by Luis Carlos Awan MD) Hypercalcemia Morbid obesity Diabetic peripheral neuropathy Gout Chronic renal failure, stage 3a CVA (cerebral vascular accident) (12/06/19) Status post stroke Abnormal EKG Leg swelling Fatigue Degenerative arthritis of left knee Unilateral primary osteoarthritis, left knee Carpal tunnel syndrome (~2005) Low back pain (~2015) Colon polyps (02/2007) Osteoarthritis (Unknown) Diabetes (Unknown) Hypertension (Unknown) Hyperlipemia (Unknown) Surgical History S/P cataract extraction Hx of arthroscopy of right knee History of surgery Hx of laminectomy History of surgery History of carpal tunnel release S/P total abdominal hysterectomy and bilateral salpingo-oophorectomy Status post delivery History of knee replacement (2003) Family History Mother Diabetes mellitus Hypertension Degenerative joint disease Obesity Father Aortic aneurysm Hypothyroid Hyperthyroidism Grandfather Heart disease Grandmother Diabetes mellitus Obesity Grandfather No problems noted. Grandmother Pneumonia Social History household members: spouse Smoking Status: Never smoker alcohol intake: never Smoking Status: Never smoker Substance Use Type: does not use Exam Initial Vital Signs Initial Vital Signs: Vital Signs Temperature 98.4 F 06/26/24 16:29 Pulse Rate 86 06/26/24 16:29 Respiratory Rate 18 06/26/24 16:29 Blood Pressure 133/60 06/26/24 16:29 Pulse Oximetry 92 06/26/24 16:29 Oxygen Delivery Method Room Air 06/26/24 16:29 Const General: No acute distress Resp Other: Normal respiratory effort Cardio Other: Heart rate is normal Extrem Other: Right knee is moderately swollen and warm. There is a small effusion palpable. Distal neurovascular exam is intact. Course Orders Ordered: ED Orders 06/26/24 16:40 XR knee RT 1to2V Stat 06/26/24 16:45 Complete Blood Count AUTO DIFF Stat Comprehensive Metabolic Panel Stat Uric Acid Stat Discontinued Medications Acetaminophen (Acetaminophen 325 Mg Tablet) 650 mg PO Q4H PRN PRN Reason: Fever/Mild Pain (1-3) Last Admin: 06/26/24 21:58 Dose: 650 mg Documented By: RALEIGH Hydromorphone HCl (Hydromorphone 2 Mg Tablet) 2 mg PO NOW ONE Stop: 06/26/24 21:44 Last Admin: 06/26/24 21:57 Dose: 2 mg Documented By: RALEIGH Prednisone (Prednisone 20 Mg Tablet) 40 mg PO NOW ONE Stop: 06/26/24 21:44 Last Admin: 06/26/24 21:57 Dose: 40 mg Documented By: RALEIGH Vital Signs Vital signs: Vital Signs - 8 hr 06/26/24 16:29 06/26/24 20:17 06/26/24 21:27 Temperature 98.4 F 98.5 F Pulse Rate 86 97 H 98 H Respiratory Rate 18 18 18 Blood Pressure 133/60 139/63 139/66 Pulse Oximetry 92 95 96 Oxygen Delivery Method Room Air Room Air Room Air Oxygen Flow Rate 0 MDM - Extremity (Nontraumatic) Lab Data Lab results narrative: White count is minimally elevated at 11.3. CMP remarkable for elevated glucose at 264. 06/26/24 16:45 06/26/24 16:45 Labs: Lab Results 06/26/24 Range/Units 16:45 WBC 11.3 H (4.5-11.0) X10^3/uL RBC 4.63 (4.0-5.2) X10^6/uL Hgb 14.3 (12.0-16.0) g/dL Hct 43.4 (36-46) % MCV 93.6 (80-100) fL MCH 30.9 (26-34) PG MCHC 33.0 (30-36) % RDW 14.0 (11.6-14.8) % Plt Count 210 (150-400) X10^3/uL Neut % (Auto) 79.7 H (50-75) % Lymph % (Auto) 10.6 L (25-40) % [place] % (Auto) 8.4 (3-14) % Eos % (Auto) 0.6 L (2-4) % Baso % (Auto) 0.7 (0-2) % Neut # (Auto) 9000 H (4353-6863) /uL Lymph # (Auto) 1200 (5014-5455) /uL [place] # (Auto) 900 (0-900) /uL Eos # (Auto) 100 (0-450) /uL Baso # (Auto) 100 (0-100) /uL Sodium 134 L (137-145) mmol/L Potassium 4.3 (3.4-5.1) mmol/L Chloride 100 (98-107) mmol/L Carbon Dioxide 27 (22-32) mmol/L BUN 33 H (7-17) mg/dL Creatinine 0.91 (0.52-1.04) mg/dL Estimated GFR > 60 (>60) mL/min BUN/Creatinine Ratio 36.3 H (6-22) Glucose 264 H (80-110) mg/dL Uric Acid 6.4 H (2.5-6.2) mg/dL Calcium 9.7 (8.4-10.2) mg/dL Total Bilirubin 0.7 (0.2-1.3) mg/dL AST 25 (14-36) IU/L ALT 25 (<35) IU/L Alkaline Phosphatase 68 (38-126) U/L Total Protein 6.5 (6.3-8.2) g/dL Albumin 3.6 (3.5-5.0) g/dL Globulin 2.9 (1.7-4.1) g/dL Albumin/Globulin Ratio 1.2 (1.0-2.8) Imaging Data Extremity x-ray #1: My Impression: Independent review right knee x-ray, no acute fracture I do not appreciate an effusion Radiologist's Impression: [address] [address] XRay Report Signed Patient: Miracle Greco MR#: [id number] : 1945 Acct:[id number] Age/Sex: 79 / F Date of Service: 06/26/24 Loc: ED Accession Number: [id number] Procedure: XR knee RT 1to2V Ordering Provider: Zan Waldron MD PROCEDURE: XR KNEE RT 1TO2V INDICATIONS: pain TECHNIQUE: 2 views of the knee were acquired. COMPARISON: [facility], CR, XR KNEE LT 1TO2V, 07/10/2020, 13:15. FINDINGS: Bones: No fractures or dislocations. No suspicious bony lesions. Knee arthroplasty. Hardware is intact without hardware fracture or periprosthetic lucency to suggest loosening. Alignment is stable. Soft tissues: Jnsp-[id number]-kahvzmka joint effusion. No suspicious soft tissue calcifications. IMPRESSION: Stable knee arthroplasty. Dictated by: Avis Vuong M.D. on 06/26/2024 at 17:21 Approved by: Avis Vuong M.D. on 06/26/2024 at 17:21 [facility] Narrative Medical decision making narrative: 79-year-old female complaining of atraumatic right knee pain. She has a history of gout by her report. Imaging shows a mild effusion, white count is only minimally elevated. Differential diagnosis includes inflammatory arthritis not gout, septic joint, and gout. We discussed the possibility of aspirating the joint to test her gout or infection, patient would prefer to defer this and I am inclined to agree since he was a total knee in place. She has a diabetic but it seems relatively well controlled I am going to start her course of prednisone and prescribed hydromorphone for pain. Recommended she follow up with her orthopedic doctor and her primary care provider Discharge Plan Departure Patient Disposition: Home Clinical Impression: Gout Qualifiers: Gout site: knee Gout etiology: unspecified cause Chronicity: acute Laterality: right Qualified Code(s): M10.9 - Gout, unspecified Activity Restrictions/Additional Instructions: Take prednisone 40 mg daily until this flare has resolved. May use acetaminophen (Tylenol) 650 mg up to 4 times a day as needed for pain. I have also prescribed hydromorphone that you may use as needed for pain. Watch for constipation and drowsiness from taking hydromorphone. Follow up with your orthopedic doctor soon, make an appointment to follow up with your primary care provider soon as well. If you are having increasing pain fevers or other acute symptoms recheck in the emergency department Prescriptions: New prednisone 20 mg tablet 40 mg PO DAILY Qty: 10 0RF Rx Instructions: Take 2 tablets (40 mg) daily until gout flare has resolved hydromorphone 2 mg tablet 2 mg PO Q6H PRN (Reason: pain) Qty: 10 0RF No Action cyanocobalamin (vitamin B-12) 1,000 mcg capsule 1,000 mcg PO QNOON multivitamin Capsule 1 cap PO DAILY Qty: 0 (DME) one touch glucose meter Qty: 1 0RF Rx Instructions: As directed celecoxib [Celebrex] 100 mg capsule 100 mg PO BID PRN (Reason: pain) Qty: 60 4RF estradiol 0.5 mg tablet 0.25 mg PO DAILY Qty: 90 3RF albuterol sulfate 90 mcg/actuation HFA aerosol inhaler 2 puff inhalation Q4-6H PRN (Reason: shortness of breath or wheezing) Qty: 8.5 12RF lisinopril 40 mg tablet 40 mg PO BID Qty: 180 3RF glipizide 10 mg tablet extended release 24hr 10 mg PO BID Qty: 180 3RF Gemtesa 75 mg tablet 75 mg PO DAILY hydrochlorothiazide 12.5 mg tablet 12.5 mg PO DAILY atorvastatin 40 mg tablet 40 mg PO .q evening Qty: 90 3RF amlodipine 10 mg tablet 10 mg PO DAILY Qty: 90 3RF metformin 1,000 mg tablet 1,000 mg PO BID Qty: 180 3RF Pulmicort Flexhaler 180 mcg/actuation aerosol powdr breath activated 1 inh inhalation BID Qty: 3 3RF turmeric 400 mg capsule PO Patient Comments: Help with joint pain. Curcumin with black seed oil, jamila root extract, AstraGin (Panax notoginseng & Astragalus membranaceus) (root) (DME) FreeStyle Rossana 3 Sensor Device See Rx Instructions .Route Qty: 1 6RF Rx Instructions: Use to test blood sugars 1-2x daily or as directed by Physician Junito Motta 3 ea PO DAILY (DME) FreeStyle Lite Strips Strip See Rx Instructions .Route Qty: 50 6RF Rx Instructions: Use to test blood sugar 1-2x a day or as directed by Physician carvedilol 6.25 mg tablet 6.25 mg PO BID magnesium oxide 400 mg magnesium tablet 400 mg PO BID miconazole nitrate 2 % cream 1 applictn TOP BID PRN (Reason: Breakout) (DME) Disabled Parking See Rx Instructions .ROUTE .MEDSUPPLY Qty: 1 0RF Rx Instructions: Patient qualifies for disabled parking as per the attached form. acetaminophen 325 mg tablet 650 mg PO TID PRN hydromorphone [Dilaudid] 2 mg tablet 2 mg PO Q4H PRN (Reason: pain) Qty: 10 0RF potassium chloride 20 mEq Tablet Extended Release 20 meq PO DAILY aspirin 81 mg Tablet,Delayed Release (Dr/Ec) 81 mg PO DAILY cholecalciferol (vitamin D3) [Vitamin D3] 25 mcg (1,000 unit) Capsule 25 mcg PO DAILY tramadol 50 mg Tablet 50 mg PO QID PRN (Reason: Pain, Moderate (4-6)) Qty: 30 0RF Referrals: Noah Jorgensen MD [Primary Care Provider] - Stand Alone Forms: Patient Portal/API
[2024-06-26] MEDS: HYDROMORPHONE 2 MG TABLET PO (21:57)
[2024-06-26] MEDS: predniSONE 20 MG TABLET 40 MG PO (21:57)
[2024-06-26] MEDS: ACETAMINOPHEN 325 MG TABLET 650 MG PO (21:58)
== END 2024-06-26 22:15 | disposition home or self-care (01) ==
PROVIDERS: Emergency Medicine; Emergency Provider Emergency Medicine; Family Provider Internal Medicine; PCP Internal Medicine
DX: M10.9 Gout, unspecified (principal); Z79.899 Other long term (current) drug therapy
CPT/HCPCS: 73560; 80053; 84550; 85025; 99283; 99284

== ENCOUNTER → 2024-07-27 15:03 | Outpatient (CLI) | payer MEDICARE, SELFPAY ==
[2022-05-29 09:21] VITALS: BMI 40.8
== END ==
LOC: CAR 15:04
PROVIDERS: Family Provider Internal Medicine; PCP Internal Medicine; Referring Provider Internal Medicine; Visit Provider Internal Medicine
DX: I48.91 Unspecified atrial fibrillation (principal); I48.92 Unspecified atrial flutter
CPT/HCPCS: 93242

== ENCOUNTER → 2024-08-23 09:38 | Outpatient (CLI) | payer MEDICARE, SELFPAY ==
[2022-05-29 09:21] VITALS: BMI 40.8
--- NOTE | 2024-08-25 18:33 | DI.NM.S_ITS ---
DATE OF SERVICE: 08/23/2024 NUCLEAR CARDIOLOGY MYOCARDIAL PERFUSION STUDY PROCEDURE PERFORMED: Pharmacologic vasodilator stress and rest myocardial perfusion study with gating to assess ejection fraction and regional wall motion. ORDERING PROVIDER: Aydee Rangel MD INDICATIONS: The patient is an 79-year-old obese female with newly discovered atrial fibrillation. Pharmacologic stress: Per protocol, 0.4 mg of regadenoson was infused with a normal hemodynamic response. Her resting ECG shows atrial fibrillation with a controlled ventricular response with fairly normal ST segments. There are no significant ST-segment shifts or arrhythmias with stress except for occasional isolated PVCs. She had no chest discomfort or other anginal symptoms except moderate dyspnea. Per protocol, 25.5 millicuries of technetium-99m Myoview was injected and she was imaged 15 minutes later using a gated SPECT acquisition protocol. Two days prior, while at rest, she had been injected with 25.4 millicuries of technetium-99m Myoview and imaged 15 minutes later, again using a gated SPECT acquisition protocol. FINDINGS: 1. Raw data. There is fair myocardial tracer uptake but with prominent breast shadows that clearly produce significant attenuation artifact. While the lung/heart ratio is elevated at 0.57, this is likely inaccurate because of the significant shadowing of the cardiac silhouette from breast attenuation. The TID ratio is normal at 0.61. 2. Quantitated gated SPECT: Post-stress ejection fraction is estimated at 91%, likely an overestimate because of relatively small left ventricular volumes. There are no focal wall motion abnormality. The resting ejection fraction is 84%, again likely an overestimate, with a small resting end-diastolic volume of 50 mL. There is markedly increased tracer uptake in the right ventricular free wall suggesting right ventricular enlargement with possible hypokinesis which could reflect a right ventricular overload condition. 3. Myocardial perfusion imaging: Post-stress supine images show a fairly normal myocardial perfusion pattern without any concerning perfusion defects, although again with increased right ventricular tracer uptake. The patient was unable to lie prone to assess for attenuation artifact. The resting images showed an identical perfusion pattern without any significant areas of improvement. IMPRESSION: 1. Normal myocardial perfusion study for ischemia although with slightly reduced sensitivity because of significant breast attenuation artifact. 2. No myocardial perfusion defects to suggest myocardial ischemia or previous myocardial infarction. 3. High normal left ventricular systolic function with relatively small left ventricular volumes. There is fairly markedly increased right ventricular tracer uptake with probable right ventricular enlargement and possible hypokinesis, suggesting a possible right ventricular overload condition but clinical correlation is recommended. 4. No angina or ECG evidence of ischemia with pharmacologic vasodilator stress. She was in atrial fibrillation with a controlled ventricular response at rest without any additional arrhythmias except for rare, isolated PVCs. She experienced moderate dyspnea with the infusion. [employer] villalta - FLORY/nunu/ANJEL doc#: [id number]/job#: [id number] dd: 08/25/2024 17:01:00 dt: 08/25/2024 18:02:00 DICTATING MD/COPIES TO: [address] [place] MD; Aydee Rangel MD COPIES MNE: MICHAEL;
== END ==
PROVIDERS: Family Provider Internal Medicine; PCP Internal Medicine; Referring Provider Internal Medicine; Visit Provider Internal Medicine
DX: I48.19 Other persistent atrial fibrillation (principal)
CPT/HCPCS: 78452; 93017; A9502; J2785

== ENCOUNTER → 2024-09-06 09:15 | Outpatient (CLI) | payer MEDICARE, SELFPAY ==
[2022-05-29 09:21] VITALS: BMI 40.8
--- NOTE | 2024-09-06 09:16 | DI.ECHO.S_ITS ---
[facility] : : [address] : : [place] : : [id number] : : Phone: [phone] Echocardiogram Report + + :Name: DEIRDRE RODRIGUEZ Study Date: 09/06/2024 Height: 66 in : :[facility] ReadingLocation: Weight: 238 lb : : Gender: Female BSA: 2.2 m2 : :: 1945 Age: 79 yrs BP: 129/84 mmHg: :Reason For Study: PERSISTENT ATRIAL FIBRILLATION : :Ordering Physician: LUCY, : :ELLEN Performed By: Luda Pratt : :Referring: ELLEN AYALA : + + Interpretation Summary A-fib with variable rate fluctuating between 66 up to 127 bpm. Normal LV size and wall thickness. Normal wall motion and LV systolic function. Ejection fraction is 60 to 65%. D-shaped left ventricle in systole and diastole consistent with RV pressure overload. Borderline dilated right ventricle with mildly reduced RV systolic function; otherwise normal chamber sizes. Moderate mitral annular calcification. Aortic sclerosis without stenosis. Otherwise there are no significant valvular abnormalities. Estimated PA systolic pressure 79 mmHg assuming right atrial pressure of 3 mmHg. Compared to prior echo December 07, 2019, A-fib is new. Pulmonary artery systolic pressure leida from 47 up to 79 mmHg. RV dilation is new. Procedure: A two-dimensional transthoracic echocardiogram with color flow and Doppler was performed. The study quality was technically adequate. Comparison is made with the echocardiogram of 12/07/2019. Left Ventricle: The left ventricle is normal in size and wall thickness. The ejection fraction is estimated to be 60-65%. The interventricular septum is flattened, consistent with a right ventricular pressure/volume condition. Right Ventricle: The right ventricle is borderline dilated. Right ventricular systolic function is mildly reduced. Atria: The left atrial size is normal. Right atrial size is normal. There is no Doppler evidence for an interatrial shunt. Mitral Valve: There is moderate mitral annular calcification. The mitral valve leaflets appear mildly thickened, but open well. The mitral valve mean gradient is 2.8 mmHg. There is mild mitral regurgitation. Aortic Valve: The aortic valve is trileaflet. The aortic valve opens well. There is no aortic valve stenosis. No aortic regurgitation is present. Tricuspid Valve: The tricuspid valve is normal in structure but is abnormal in function. There is moderate tricuspid regurgitation. The right ventricular systolic pressure is estimated to be at least 79 mmHg based on an estimated right atrial pressure of 3 mm Hg. Pulmonic Valve: The pulmonic valve leaflets are thin and pliable; valve motion is normal. There is trace pulmonic regurgitation. Great Vessels: The aortic root is normal size. The dimensions of the ascending aorta are normal. The IVC is of normal diameter and collapses greater than 50% with a sniff. This suggests a low right atrial pressure of 3 mm Hg. Pericardium/ Pleura There is no pericardial effusion. There is no pleural effusion. MMode/2D Measurements & Calculations LVIDd: 4.1 cm LVOT diam: 2.0 cm LVIDs: 2.6 cm Ao root diam: 2.7 cm FS: 37.8 % asc Aorta Diam: 3.0 cm EPSS: 0.46 cm Ao Arch Diam (Prox Trans): 3.1 cm IVSd: 0.99 cm LVPWd: 0.79 cm LV gavin. diameter/BSA (cm/m^2): 1.9 LV sys. diameter/BSA (cm/m^2): 1.2 LA A2 area: 21.2 cm2 RA long axis: 4.8 cm LA A4 area: 18.7 cm2 RA area: 16.3 cm2 LA length (vol): 5.4 cm RA vol: 47.1 ml LA vol: 62.4 ml RA : 21.9 ml/m2 LA vol index: 29.0 ml/m2 IVC diam: 1.6 cm RVD1 (basal): 3.8 cm RVD2 (mid): 2.8 cm TAPSE: 1.5 cm Doppler Measurements & Calculations Ao V2 max: 155.6 cm/sec LVOT Max Travis: 82.8 cm/sec Ao V2 mean: 106.6 cm/sec LV V1 max P.7 mmHg Ao max P.8 mmHg LV V1 VTI: 17.1 cm Ao mean P.6 mmHg GEOVANNA(I,D): 1.8 cm2 Ao V2 VTI: 29.9 cm GEOVANNA(V,D): 1.6 cm2 sev ratio: 0.57 GEOVANNA indexed to BSA (cm^2/m^2): 0.82 MV E max travis: 103.8 cm/sec TR max travis: 436.3 cm/sec Med Peak E' Travis: 10.3 cm/sec TR max P.1 mmHg E/E' med: 10.1 PA V2 max: 81.7 cm/sec Lat Peak E' Travis: 11.3 cm/sec PA V2 mean: 54.5 cm/sec E/E' lat: 9.2 PA mean P.3 mmHg E/e' average: 9.7 PA pr(Accel): 58.4 mmHg MV dec time: 0.22 sec MVA(VTI): 1.5 cm2 MV V2 mean: 67.7 cm/sec SV(LVOT): 52.9 ml MV mean P.8 mmHg MV V2 VTI: 36.3 cm Electronically signed by: Ellen Ayala M.D. on Reading Physician:09/08/2024 03:35 AM
== END ==
LOC: ECHO 09:16
PROVIDERS: Family Provider Internal Medicine; PCP Internal Medicine; Referring Provider Internal Medicine; Visit Provider Internal Medicine
DX: I08.1 Rheumatic disorders of both mitral and tricuspid valves (principal); I48.19 Other persistent atrial fibrillation
CPT/HCPCS: 93306

== ENCOUNTER 2024-09-27 14:10 | Emergency (ER) | payer MEDICARE, SELFPAY ==
[2022-05-29 09:21] VITALS: BMI 40.8
[2024-09-27 14:09] VITALS: BP 144/65; PULSE 85; RESP 18; TEMP 37.1; O2SAT 95; BMI 37.9
--- NOTE | 2024-09-27 14:20 | DI.RAD.S_ITS ---
PROCEDURE: XR ELBOW RT MIN 3V INDICATIONS: pain and swelling TECHNIQUE: 3 views of the elbow were acquired. COMPARISON: [facility], , XR ELBOW RT MIN 3V, 08/22/2021, 14:23. FINDINGS: Bones: Questionable impaction fracture of the olecranon. No suspicious bony lesions. Degenerative changes about elbow. Soft tissues: Moderate elbow joint effusion. No suspicious soft tissue calcifications. IMPRESSION: Questionable impacted fracture of the olecranon. Correlate with point tenderness and consider CT if there is a history of trauma or pain in this region. Moderate elbow joint effusion. Dictated by: Joaquin Sheldon M.D. on 09/27/2024 at 15:10 Approved by: Joaquin Sheldon M.D. on 09/27/2024 at 15:11
--- NOTE | 2024-09-27 14:21 | DI.RAD.S_ITS ---
PROCEDURE: XR FOREARM RT 2V INDICATIONS: pain and swelling TECHNIQUE: 2 views of the forearm were acquired. COMPARISON: None. FINDINGS: Bones: Chondrocalcinosis of the TFCC. Radiocarpal and carpocarpal joint space narrowing with osteophytosis. 1st CMC joint space narrowing with associated osteophytosis and sclerosis. Soft tissues: No suspicious soft tissue calcifications or masses. IMPRESSION: Degenerative changes about the wrist, without fracture. Dictated by: Joaquin Sheldon M.D. on 09/27/2024 at 15:11 Approved by: Joaquin Sheldon M.D. on 09/27/2024 at 15:13
--- NOTE | 2024-09-27 17:38 | ED_ITS ---
HPI - Extremity Problem <Juan Pablo Varner MD - Last Filed: 10/01/24 15:31> General Chief complaint: Extremity Problem,Nontraumatic Stated complaint: R Arm px Time Seen by Provider: 09/27/24 17:18 Source: patient Mode of arrival: EMS History of Present Illness HPI Narrative: Patient here for right arm pain Related Data Home Medications Medication Instructions Recorded Confirmed multivitamin 1 cap PO DAILY ##0 08/29/12 09/07/24 cyanocobalamin (vitamin B-12) 1,000 mcg PO QNOON 12/29/19 09/07/24 1,000 mcg capsule carvedilol 6.25 mg tablet 6.25 mg PO BID 02/22/20 09/07/24 magnesium oxide 400 mg PO BID 02/22/20 09/07/24 miconazole nitrate 2 % topical 1 applictn topical BID PRN Breakout 04/22/20 09/07/24 cream aspirin 81 mg tablet,delayed 81 mg PO DAILY 07/03/20 09/07/24 release cholecalciferol (vitamin D3) 25 25 mcg PO DAILY 07/03/20 09/07/24 mcg (1,000 unit) capsule (Vitamin D3) potassium chloride 20 mEq 20 meq PO DAILY 07/03/20 09/07/24 tablet,extended release acetaminophen 325 mg tablet 650 mg PO TID PRN 06/05/21 09/07/24 vibegron 75 mg tablet (Gemtesa) 75 mg PO DAILY 08/26/23 09/07/24 turmeric 400 mg capsule cap PO antioxidants 12/14/23 09/07/24 apixaban 5 mg tablet (Eliquis) 5 mg PO BID 08/03/24 09/07/24 Previous Rx's Medication Instructions Recorded one touch glucose meter #1 ea 02/02/20 tramadol 50 mg tablet 50 mg PO QID PRN Pain, Moderate 07/11/20 (4-6) #30 tabs celecoxib 100 mg capsule (Celebrex) 100 mg PO BID PRN pain #60 caps 03/24/21 Disabled Parking #1 ea 06/05/21 albuterol sulfate 90 mcg/actuation 2 puff inhalation Q4-6H PRN 04/02/23 aerosol inhaler shortness of breath or wheezing #8.5 grams lisinopril 40 mg tablet 40 mg PO BID #180 tabs 04/22/23 amlodipine 10 mg tablet 10 mg PO DAILY #90 tabs 10/21/23 atorvastatin 40 mg tablet 40 mg PO .q evening #90 tabs 10/21/23 metformin 1,000 mg tablet 1,000 mg PO BID #180 tabs 10/28/23 budesonide 180 mcg/actuation 1 inh inhalation BID #3 ea 11/09/23 breath activated powder inhaler (Pulmicort Flexhaler) blood-glucose sensor (FreeStyle #1 ea 12/14/23 Rossana 3 Sensor device) blood sugar diagnostic (FreeStyle #50 ea 04/18/24 Lite Strips) glipizide 10 mg tablet, extended 10 mg PO BID #180 tabs 07/24/24 release 24 hr estradiol 0.5 mg tablet 0.25 mg (1/2 x 0.5 mg) PO DAILY 08/21/24 #90 tabs prednisone 20 mg tablet 40 mg (2 x 20 mg) PO DAILY #10 tabs 09/27/24 tramadol 50 mg tablet 50 mg PO Q8H PRN pain #14 tabs 09/27/24 Allergies Allergy/AdvReac Type Severity Reaction Status Date / Time erythromycin base Allergy Severe Hives Verified 09/07/24 14:57 [ERYTHROMYCIN BASE] Sulfa (Sulfonamide Allergy Severe Hives Verified 09/07/24 14:57 Antibiotics) [SULFA (SULFONAMIDE ANTIBIOTICS)] sulfamethoxazole Allergy Severe Hives Verified 09/07/24 14:57 [From SEPTRA] trimethoprim [From SEPTRA] Allergy Severe Hives Verified 09/07/24 14:57 oxycodone [From PERCOCET] AdvReac Severe Very Verified 09/07/24 14:57 lethargic hydrocodone [HYDROCODONE] AdvReac Mild N/V Verified 09/07/24 14:57 <Heather Cheung PA-C - Last Filed: 09/27/24 19:18> History of Present Illness HPI Narrative: Ms. Greco is a pleasant 79-year-old female with a past medical history of AFib on Eliquis, HTN, HLD, T2DM, LE edema, OA, gout who presents to the emergency department via EMS for right arm pain and swelling x6 days. Her contributes to the history. Patient states on Wednesday she noticed pain of her right elbow without any known trauma. States that she also has pain on the dorsal forearm and wrist. Pain is worse with extension of the right wrist and extension of the right elbow. States that pain is not as severe as when she had gout in the past. No known direct trauma. She is compliant with her Eliquis. No fevers, chills, chest pain, shortness of breath. Pain not resolved with hydromorphone. She ambulates with a walker. Review of Systems <Heather Cheung PA-C - Last Filed: 09/27/24 19:18> Review of Systems ROS Unobtainable: All systems reviewed & are unremarkable except as noted in HPI and below Patient History <Juan Pablo Varner MD - Last Filed: 10/01/24 15:31> Medical History Persistent atrial fibrillation Hypercalcemia Morbid obesity Diabetic peripheral neuropathy Gout Chronic renal failure, stage 3a CVA (cerebral vascular accident) (12/06/19) Status post stroke Abnormal EKG Leg swelling Fatigue Degenerative arthritis of left knee Unilateral primary osteoarthritis, left knee Carpal tunnel syndrome (~2005) Low back pain (~2015) Colon polyps (02/2007) Osteoarthritis (Unknown) Diabetes (Unknown) Hypertension (Unknown) Hyperlipemia (Unknown) Surgical History S/P cataract extraction Hx of arthroscopy of right knee History of surgery Hx of laminectomy History of surgery History of carpal tunnel release S/P total abdominal hysterectomy and bilateral salpingo-oophorectomy Status post delivery History of knee replacement (2003) Family History Mother Diabetes mellitus Hypertension Degenerative joint disease Obesity Father Aortic aneurysm Hypothyroid Hyperthyroidism Grandfather Heart disease Grandmother Diabetes mellitus Obesity Grandfather No problems noted. Grandmother Pneumonia Social History household members: spouse Smoking Status: Never smoker alcohol intake: never Smoking Status: Never smoker Substance Use Type: does not use Exam <Juan Pablo Varner MD - Last Filed: 10/01/24 15:31> Initial Vital Signs Initial Vital Signs: Vital Signs Temperature 98.8 F 09/27/24 14:09 Pulse Rate 85 09/27/24 14:09 Respiratory Rate 18 09/27/24 14:09 Blood Pressure 144/65 H 09/27/24 14:09 Pulse Oximetry 95 09/27/24 14:09 Oxygen Delivery Method Room Air 09/27/24 14:09 <Heather Cheung PA-C - Last Filed: 09/27/24 19:18> Narrative Exam Narrative: GENERAL: 79 year old patient appears stated age. Obese patient, in no acute distress sitting in wheelchair. HEAD: Atraumatic. Normocephalic. EYES: PERRL. Extraocular motions intact. No scleral icterus. No injection or drainage. ENT: Nose without bleeding, purulent drainage. Throat without erythema, tonsillar hypertrophy or exudate. Airway patent. NECK: Trachea midline. Cervical ROM intact. CARDIOVASCULAR: Regular rate, irregularly irregular rhythm. RESPIRATORY: ?Nonlabored respirations. ?Speaking in clear, full sentences. ?Clear to auscultation. Breath sounds equal bilaterally. No wheezes, rales, or rhonchi. ? GASTROINTESTINAL: Abdomen soft, non-tender, nondistended. EXTREMITIES: Strong radial pulse. right dorsal hand/wrist swelling and erythema. Pain with flexion and extension of right wrist. Pain with extension of right elbow and tenderness to palpation of the olecranon however no overlying swelling or erythema of elbow. No tenderness to palpation of right shoulder or the remainder of the appendicular skeleton. She does have bilateral lower extremity edema. BACK: Nontender without deformity or crepitance. No flank tenderness. NEURO: AOx3. ?Clear speech. ?Moves all 4 extremities appropriately. SITLT throughout extremities. Initial Vital Signs Initial Vital Signs: Vital Signs Temperature 98.8 F 09/27/24 14:09 Pulse Rate 85 09/27/24 14:09 Respiratory Rate 18 09/27/24 14:09 Blood Pressure 144/65 H 09/27/24 14:09 Pulse Oximetry 95 09/27/24 14:09 Oxygen Delivery Method Room Air 09/27/24 14:09 <Sherry Lim DO - Last Filed: 09/28/24 02:34> Initial Vital Signs Initial Vital Signs: Vital Signs Temperature 98.8 F 09/27/24 14:09 Pulse Rate 85 09/27/24 14:09 Respiratory Rate 18 09/27/24 14:09 Blood Pressure 144/65 H 09/27/24 14:09 Pulse Oximetry 95 09/27/24 14:09 Oxygen Delivery Method Room Air 09/27/24 14:09 Course <Juan Pablo Varner MD - Last Filed: 10/01/24 15:31> Orders Ordered: Discontinued Medications Acetaminophen (Acetaminophen 325 Mg Tablet) 650 mg PO NOW ONE Stop: 09/27/24 18:03 Last Admin: 09/27/24 19:02 Dose: 650 mg Documented By: DIONNE Prednisone (Prednisone 20 Mg Tablet) 20 mg PO NOW ONE Stop: 09/27/24 19:08 Last Admin: 09/27/24 19:26 Dose: 20 mg Documented By: DEMETRIO Tramadol HCl (Tramadol 50 Mg Tablet) 50 mg PO NOW ONE Stop: 09/27/24 20:38 Last Admin: 09/27/24 20:44 Dose: 50 mg Documented By: DEMETRIO Vital Signs Vital signs: Vital Signs - 8 hr 09/27/24 21:35 Pulse Rate 86 Respiratory Rate 18 Blood Pressure 136/70 Pulse Oximetry 98 Oxygen Delivery Method Room Air <Heather Cheung PA-C - Last Filed: 09/27/24 19:18> Orders Ordered: Discontinued Medications Acetaminophen (Acetaminophen 325 Mg Tablet) 650 mg PO NOW ONE Stop: 09/27/24 18:03 Last Admin: 09/27/24 19:02 Dose: 650 mg Documented By: DIONNE Prednisone (Prednisone 20 Mg Tablet) 20 mg PO NOW ONE Stop: 09/27/24 19:08 Last Admin: 09/27/24 19:26 Dose: 20 mg Documented By: DEMETRIO Tramadol HCl (Tramadol 50 Mg Tablet) 50 mg PO NOW ONE Stop: 09/27/24 20:38 Last Admin: 09/27/24 20:44 Dose: 50 mg Documented By: DEMETRIO Vital Signs Vital signs: Vital Signs - 8 hr 09/27/24 21:35 Pulse Rate 86 Respiratory Rate 18 Blood Pressure 136/70 Pulse Oximetry 98 Oxygen Delivery Method Room Air <Sherry Lim DO - Last Filed: 09/28/24 02:34> Orders Ordered: Discontinued Medications Acetaminophen (Acetaminophen 325 Mg Tablet) 650 mg PO NOW ONE Stop: 09/27/24 18:03 Last Admin: 09/27/24 19:02 Dose: 650 mg Documented By: DIONNE Prednisone (Prednisone 20 Mg Tablet) 20 mg PO NOW ONE Stop: 09/27/24 19:08 Last Admin: 09/27/24 19:26 Dose: 20 mg Documented By: DEMETRIO Tramadol HCl (Tramadol 50 Mg Tablet) 50 mg PO NOW ONE Stop: 09/27/24 20:38 Last Admin: 09/27/24 20:44 Dose: 50 mg Documented By: DEMETRIO Vital Signs Vital signs: Vital Signs - 8 hr 09/27/24 21:35 Pulse Rate 86 Respiratory Rate 18 Blood Pressure 136/70 Pulse Oximetry 98 Oxygen Delivery Method Room Air MDM - Extremity (Nontraumatic) <Juan Pablo Varner MD - Last Filed: 10/01/24 15:31> Lab Data 09/27/24 19:25 09/27/24 19:25 Labs: Lab Results 09/27/24 Range/Units 19:25 WBC 8.6 (4.5-11.0) X10^3/uL RBC 4.63 (4.0-5.2) X10^6/uL Hgb 14.1 (12.0-16.0) g/dL Hct 43.2 (36-46) % MCV 93.5 (80-100) fL MCH 30.4 (26-34) PG MCHC 32.5 (30-36) % RDW 15.1 H (11.6-14.8) % Plt Count 207 (150-400) X10^3/uL Neut % (Auto) 78.6 H (50-75) % Lymph % (Auto) 10.2 L (25-40) % [place] % (Auto) 10.6 (3-14) % Eos % (Auto) 0.1 L (2-4) % Baso % (Auto) 0.5 (0-2) % Neut # (Auto) 6700 (5570-5757) /uL Lymph # (Auto) 900 L (8589-1118) /uL [place] # (Auto) 900 (0-900) /uL Eos # (Auto) 0 (0-450) /uL Baso # (Auto) 0 (0-100) /uL ESR 42 H (0-20) MM/HR Sodium 134 L (137-145) mmol/L Potassium 5.0 (3.4-5.1) mmol/L Chloride 103 (98-107) mmol/L Carbon Dioxide 26 (22-32) mmol/L BUN 36 H (7-17) mg/dL Creatinine 0.92 (0.52-1.04) mg/dL Estimated GFR > 60 (>60) mL/min BUN/Creatinine Ratio 39.1 H (6-22) Glucose 260 H (80-110) mg/dL Lactate 0.9 (0.7-2.1) mmol/L Uric Acid 7.0 H (2.5-6.2) mg/dL Calcium 10.7 H (8.4-10.2) mg/dL Total Bilirubin 0.7 (0.2-1.3) mg/dL AST 39 H (14-36) IU/L ALT 75 H (<35) IU/L Alkaline Phosphatase 87 (38-126) U/L C-Reactive Protein 7.9 H (<1.0) mg/dL Total Protein 6.5 (6.3-8.2) g/dL Albumin 3.5 (3.5-5.0) g/dL Globulin 3.0 (1.7-4.1) g/dL Albumin/Globulin Ratio 1.2 (1.0-2.8) <Heather Cheung PA-C - Last Filed: 09/27/24 19:18> Medical Records Attestation: I reviewed the patient's medical records. Medical records narrative: 06/26/2024 ED visit diagnosed with gout of the right knee, treated with hydromorphone and prednisone 40 mg. Lab Data Labs: Lab Results 09/27/24 Range/Units 19:25 WBC 8.6 (4.5-11.0) X10^3/uL RBC 4.63 (4.0-5.2) X10^6/uL Hgb 14.1 (12.0-16.0) g/dL Hct 43.2 (36-46) % MCV 93.5 (80-100) fL MCH 30.4 (26-34) PG MCHC 32.5 (30-36) % RDW 15.1 H (11.6-14.8) % Plt Count 207 (150-400) X10^3/uL Neut % (Auto) 78.6 H (50-75) % Lymph % (Auto) 10.2 L (25-40) % [place] % (Auto) 10.6 (3-14) % Eos % (Auto) 0.1 L (2-4) % Baso % (Auto) 0.5 (0-2) % Neut # (Auto) 6700 (5103-1924) /uL Lymph # (Auto) 900 L (4833-4809) /uL [place] # (Auto) 900 (0-900) /uL Eos # (Auto) 0 (0-450) /uL Baso # (Auto) 0 (0-100) /uL ESR 42 H (0-20) MM/HR Sodium 134 L (137-145) mmol/L Potassium 5.0 (3.4-5.1) mmol/L Chloride 103 (98-107) mmol/L Carbon Dioxide 26 (22-32) mmol/L BUN 36 H (7-17) mg/dL Creatinine 0.92 (0.52-1.04) mg/dL Estimated GFR > 60 (>60) mL/min BUN/Creatinine Ratio 39.1 H (6-22) Glucose 260 H (80-110) mg/dL Lactate 0.9 (0.7-2.1) mmol/L Uric Acid 7.0 H (2.5-6.2) mg/dL Calcium 10.7 H (8.4-10.2) mg/dL Total Bilirubin 0.7 (0.2-1.3) mg/dL AST 39 H (14-36) IU/L ALT 75 H (<35) IU/L Alkaline Phosphatase 87 (38-126) U/L C-Reactive Protein 7.9 H (<1.0) mg/dL Total Protein 6.5 (6.3-8.2) g/dL Albumin 3.5 (3.5-5.0) g/dL Globulin 3.0 (1.7-4.1) g/dL Albumin/Globulin Ratio 1.2 (1.0-2.8) Imaging Data Right Elbow X-Ray, Right Forearm X-Ray, Right Elbow CT: Radiologist's Impression: PROCEDURE: XR ELBOW RT MIN 3V INDICATIONS: pain and swelling TECHNIQUE: 3 views of the elbow were acquired. COMPARISON: [facility], , XR ELBOW RT MIN 3V, 08/22/2021, 14:23. FINDINGS: Bones: Questionable impaction fracture of the olecranon. No suspicious bony lesions. Degenerative changes about elbow. Soft tissues: Moderate elbow joint effusion. No suspicious soft tissue calcifications. IMPRESSION: Questionable impacted fracture of the olecranon. Correlate with point tenderness and consider CT if there is a history of trauma or pain in this region. Moderate elbow joint effusion. PROCEDURE: XR FOREARM RT 2V INDICATIONS: pain and swelling TECHNIQUE: 2 views of the forearm were acquired. COMPARISON: None. FINDINGS: Bones: Chondrocalcinosis of the TFCC. Radiocarpal and carpocarpal joint space narrowing with osteophytosis. 1st CMC joint space narrowing with associated osteophytosis and sclerosis. Soft tissues: No suspicious soft tissue calcifications or masses. IMPRESSION: Degenerative changes about the wrist, without fracture. PROCEDURE: CT ELBOW RIGHT WITHOUT CON INDICATIONS: fall with pain - abnormal xray TECHNIQUE: Noncontrast 1-1.5 mm axial sections were acquired through the elbow joint, with coronal and sagittal reformats. COMPARISON: [facility], CR, XR ELBOW RT MIN 3V, 08/22/2021, 14:23. [facility], CR, XR ELBOW RT MIN 3V, 09/27/2024, 14:37. FINDINGS: Image quality: Excellent. Bones: As identified on x-ray there is slight irregularity of the olecranon tip posterior superiorly. This area is also part of an olecranon osteophyte. This area also demonstrated slight appearance of irregularity in 2020 although the osteophyte was less prominent. Soft tissues: Unremarkable. No significant effusion. IMPRESSION: Irregularity at the olecranon osteophyte posteriorly as above. While this could represent fracture, mild irregularity was also present 2020 although slightly less prominent, likely secondary to smaller osteophyte. Recommend correlation point tenderness and if concern persists, follow-up imaging in 7-10 days. [facility] Narrative Medical decision making narrative: 79-year-old female with significant past medical history [id number] diabetes, hypertension, hyperlipidemia, AFib on Eliquis, osteoarthritis, gout presents to the emergency room for nontraumatic right arm pain x6 days. Differential diagnosis includes but is not limited to right arm fracture, right arm DVT, gout, septic arthritis, noninfectious arthritis, etc. Case was discussed with daytime attending physician, Dr. Varner. On exam the patient is in no acute distress, nontoxic appearing, vital signs within normal limits. She has erythema and edema overlying the dorsal aspect of the right wrist. She has pain with extension of the right wrist and the right elbow. She does have pain of the right olecranon, but not isolated pain. In the waiting room, x-ray of the right forearm and elbow were obtained. Elbow x-ray reveals questionable impacted fracture of the olecranon. While patient denies any trauma to this area, she does have pain and tenderness in this area. She also has a moderate elbow joint effusion. Forearm x-ray reveals degenerative changes about the wrist without fracture. After shared decision- making with the patient and the daytime attending physician, we will add on a CT of the elbow for further evaluation, right upper extremity vascular ultrasound to evaluate for possible DVT, and obtain CBC, CMP, and uric acid. After shared decision-making with the patient, we will start with 650 mg Tylenol only for pain as she is not a candidate for NSAIDs. Due to shift change, the patient's lab work and final ultrasound read will be addressed by the nighttime physician, Dr. Lim. Patient aware and agreeable to transfer of care. <Sherry Lim, - Last Filed: 09/28/24 02:34> Lab Data Labs: Lab Results 09/27/24 Range/Units 19:25 WBC 8.6 (4.5-11.0) X10^3/uL RBC 4.63 (4.0-5.2) X10^6/uL Hgb 14.1 (12.0-16.0) g/dL Hct 43.2 (36-46) % MCV 93.5 (80-100) fL MCH 30.4 (26-34) PG MCHC 32.5 (30-36) % RDW 15.1 H (11.6-14.8) % Plt Count 207 (150-400) X10^3/uL Neut % (Auto) 78.6 H (50-75) % Lymph % (Auto) 10.2 L (25-40) % [place] % (Auto) 10.6 (3-14) % Eos % (Auto) 0.1 L (2-4) % Baso % (Auto) 0.5 (0-2) % Neut # (Auto) 6700 (2621-5468) /uL Lymph # (Auto) 900 L (8888-6296) /uL [place] # (Auto) 900 (0-900) /uL Eos # (Auto) 0 (0-450) /uL Baso # (Auto) 0 (0-100) /uL ESR 42 H (0-20) MM/HR Sodium 134 L (137-145) mmol/L Potassium 5.0 (3.4-5.1) mmol/L Chloride 103 (98-107) mmol/L Carbon Dioxide 26 (22-32) mmol/L BUN 36 H (7-17) mg/dL Creatinine 0.92 (0.52-1.04) mg/dL Estimated GFR > 60 (>60) mL/min BUN/Creatinine Ratio 39.1 H (6-22) Glucose 260 H (80-110) mg/dL Lactate 0.9 (0.7-2.1) mmol/L Uric Acid 7.0 H (2.5-6.2) mg/dL Calcium 10.7 H (8.4-10.2) mg/dL Total Bilirubin 0.7 (0.2-1.3) mg/dL AST 39 H (14-36) IU/L ALT 75 H (<35) IU/L Alkaline Phosphatase 87 (38-126) U/L C-Reactive Protein 7.9 H (<1.0) mg/dL Total Protein 6.5 (6.3-8.2) g/dL Albumin 3.5 (3.5-5.0) g/dL Globulin 3.0 (1.7-4.1) g/dL Albumin/Globulin Ratio 1.2 (1.0-2.8) Imaging Data US - DVT: Radiologist's Impression: PROCEDURE: [facility] V[facility] UP EXTREM RT INDICATIONS: EDEMA TECHNIQUE: Real-time imaging, as well as color and pulse Doppler interrogation, was performed of the upper extremity deep veins from the inferior neck to the antecubital fossa. COMPARISON: [facility], US, US [facility] VENOUS UP EXTREM RT, 08/22/2021, 19:53. FINDINGS: The internal jugular vein, visualized portions of the subclavian vein, axillary, and brachial veins are free of intraluminal thrombus. Where physically possible, the veins are normally compressible. Color and pulse Doppler demonstrate normal intraluminal flow, with expected phasicity and pulsatility. Additional scanning of the cephalic and basilic veins of the superficial system demonstrates normal compressibility, without thrombus. IMPRESSION: No findings of upper extremity deep venous thrombosis can be seen. Dictated by: Avis Vuong M.D. on 09/27/2024 at 19:33 MDM Narrative Medical decision making narrative: 79-year-old female with significant past medical history [id number] diabetes, hypertension, hyperlipidemia, AFib on Eliquis, osteoarthritis, gout presents to the emergency room for nontraumatic right arm pain x6 days. Differential diagnosis includes but is not limited to right arm fracture, right arm DVT, gout, septic arthritis, noninfectious arthritis, etc. Case was discussed with daytime attending physician, Dr. Varner. On exam the patient is in no acute distress, nontoxic appearing, vital signs within normal limits. She has erythema and edema overlying the dorsal aspect of the right wrist. She has pain with extension of the right wrist and the right elbow. She does have pain of the right olecranon, but not isolated pain. In the waiting room, x-ray of the right forearm and elbow were obtained. Elbow x-ray reveals questionable impacted fracture of the olecranon. While patient denies any trauma to this area, she does have pain and tenderness in this area. She also has a moderate elbow joint effusion. Forearm x-ray reveals degenerative changes about the wrist without fracture. After shared decision- making with the patient and the daytime attending physician, we will add on a CT of the elbow for further evaluation, right upper extremity vascular ultrasound to evaluate for possible DVT, and obtain CBC, CMP, and uric acid. After shared decision-making with the patient, we will start with 650 mg Tylenol only for pain as she is not a candidate for NSAIDs. Due to shift change, the patient's lab work and final ultrasound read will be addressed by the nighttime physician, Dr. Lim. Patient aware and agreeable to transfer of care. Patient 79-year-old female signed out to me by Heather presenting today with back pain. She actually reports that she has had back pain but for the last 2 days it has been difficult for her to walk. She does have a history of stroke she has a right leg weakness and deficits from her CVA her left leg is her good leg however her left leg seems to be bothering her with her back pain. No loss of urine or bowel movement. She is having difficulty with her walker because her right arm has been swollen red. Multiple imaging have been done there is no actual fracture she does not have a mechanism or fall for fracture. She does not have a DVT. She was an elevated uric acid but no leukocytosis, mild elevation of CRP at 7.9. She has not had significant erythema I do not suspect septic joint She is allergic to hydrocodone and oxycodone she has given a trial middle and prednisone here in the ED. she also got Toradol which seemed to help. She was able to stand use her own walker take a few steps. At this time she does not meet admission criteria. Discharge Plan Departure Patient Disposition: Home Clinical Impression: Gout, Sciatic nerve pain Instructions: DI for Gout, DI for Back Pain With Sciatica Activity Restrictions/Additional Instructions: *You have been diagnosed with gout of right elbow and left back pain *What to do: Increase activity as tolerated. I do recommend that you elevate and ice your right arm this will help with the swelling. *Continue to take medications as directed Tramadol 50 mg every she 4-6 hours if needed for severe pain Prednisone 40 mg once a day for 5 days *Follow up with your primary care provider in 2-3 days or call [phone] *Return to ER if you should have increasing pain weakness redness fever confusion or any new, worsening or concerning symptoms CONTROLLED SUBSTANCE DISCHARGE (Narcotoic/benzodiazepine/Flexeril/Phenergan) 1. You have been prescribed narcotic medications, it does have acetaminophen/Tylenol/paracetamol in it, DO NOT TAKE MORE THAN 4,00mg in 24 hours of Tylenol. TRAMADOL DOES NOT CONTAIN TYLENOL 2. Please understand that we cannot provide further refills of narcotics, benzodiazepines or controlled substances through the ED and her pain management will need to be through your provider. 3. While on these medications you cannot drive or operate heavy machinery. 4. You cannot sign legal documents or perform any duties such as this. 5. As long as you're taking opiate pain medications he should also be taking a stool softener such as Colace, Dulcolax, MiraLAX or prune juice, to help avoid constipation. Prescriptions: New prednisone 20 mg tablet 40 mg PO DAILY Qty: 10 0RF tramadol 50 mg tablet 50 mg PO Q8H PRN (Reason: pain) Qty: 14 0RF No Action cyanocobalamin (vitamin B-12) 1,000 mcg capsule 1,000 mcg PO QNOON multivitamin Capsule 1 cap PO DAILY Qty: 0 (DME) one touch glucose meter Qty: 1 0RF Rx Instructions: As directed celecoxib [Celebrex] 100 mg capsule 100 mg PO BID PRN (Reason: pain) Qty: 60 4RF albuterol sulfate 90 mcg/actuation HFA aerosol inhaler 2 puff inhalation Q4-6H PRN (Reason: shortness of breath or wheezing) Qty: 8.5 12RF lisinopril 40 mg tablet 40 mg PO BID Qty: 180 3RF Gemtesa 75 mg tablet 75 mg PO DAILY atorvastatin 40 mg tablet 40 mg PO .q evening Qty: 90 3RF amlodipine 10 mg tablet 10 mg PO DAILY Qty: 90 3RF metformin 1,000 mg tablet 1,000 mg PO BID Qty: 180 3RF Pulmicort Flexhaler 180 mcg/actuation aerosol powdr breath activated 1 inh inhalation BID Qty: 3 3RF glipizide 10 mg tablet extended release 24hr 10 mg PO BID Qty: 180 3RF Eliquis 5 mg tablet 5 mg PO BID estradiol 0.5 mg tablet 0.25 mg PO DAILY Qty: 90 3RF turmeric 400 mg capsule PO Patient Comments: Help with joint pain. Curcumin with black seed oil, jamila root extract, AstraGin (Panax notoginseng & Astragalus membranaceus) (root) (DME) FreeStyle Rossana 3 Sensor Device See Rx Instructions .Route Qty: 1 6RF Rx Instructions: Use to test blood sugars 1-2x daily or as directed by Physician (DME) FreeStyle Lite Strips Strip See Rx Instructions .Route Qty: 50 6RF Rx Instructions: Use to test blood sugar 1-2x a day or as directed by Physician carvedilol 6.25 mg tablet 6.25 mg PO BID magnesium oxide 400 mg magnesium tablet 400 mg PO BID miconazole nitrate 2 % cream 1 applictn TOP BID PRN (Reason: Breakout) (DME) Disabled Parking See Rx Instructions .ROUTE .MEDSUPPLY Qty: 1 0RF Rx Instructions: Patient qualifies for disabled parking as per the attached form. acetaminophen 325 mg tablet 650 mg PO TID PRN potassium chloride 20 mEq Tablet Extended Release 20 meq PO DAILY aspirin 81 mg Tablet,Delayed Release (Dr/Ec) 81 mg PO DAILY cholecalciferol (vitamin D3) [Vitamin D3] 25 mcg (1,000 unit) Capsule 25 mcg PO DAILY tramadol 50 mg Tablet 50 mg PO QID PRN (Reason: Pain, Moderate (4-6)) Qty: 30 0RF Referrals: Noah Jorgensen MD [Primary Care Provider] - Stand Alone Forms: Patient Portal/API/Survey ED Sign-out <Juan Pablo Varner MD - Last Filed: 10/01/24 15:31> [facility] Attestation: I was available for consultation. I was immediately available in the department for consultation. ?This documentation has been reviewed and I agree with assessment and plan. Supervised by Juan Pablo Varner MD <Sherry Lim DO - Last Filed: 09/28/24 02:34> [facility] ED Attending Isaiah Attestation: I was available for consultation.
--- NOTE | 2024-09-27 17:43 | DI.US.S_ITS ---
PROCEDURE: [facility] VENOUS UP EXTREM RT INDICATIONS: EDEMA TECHNIQUE: Real-time imaging, as well as color and pulse Doppler interrogation, was performed of the upper extremity deep veins from the inferior neck to the antecubital fossa. COMPARISON: [facility], , [facility] VENOUS UP EXTREM RT, 08/22/2021, 19:53. FINDINGS: The internal jugular vein, visualized portions of the subclavian vein, axillary, and brachial veins are free of intraluminal thrombus. Where physically possible, the veins are normally compressible. Color and pulse Doppler demonstrate normal intraluminal flow, with expected phasicity and pulsatility. Additional scanning of the cephalic and basilic veins of the superficial system demonstrates normal compressibility, without thrombus. IMPRESSION: No findings of upper extremity deep venous thrombosis can be seen. Dictated by: Avis Vuong M.D. on 09/27/2024 at 19:33 Approved by: Avis Vuong M.D. on 09/27/2024 at 19:33
--- NOTE | 2024-09-27 17:43 | DI.CT.S_ITS ---
PROCEDURE: CT ELBOW RIGHT WITHOUT CON INDICATIONS: fall with pain - abnormal xray TECHNIQUE: Noncontrast 1-1.5 mm axial sections were acquired through the elbow joint, with coronal and sagittal reformats. COMPARISON: [facility], CR, XR ELBOW RT MIN 3V, 08/22/2021, 14:23. [facility], CR, XR ELBOW RT MIN 3V, 09/27/2024, 14:37. FINDINGS: Image quality: Excellent. Bones: As identified on x-ray there is slight irregularity of the olecranon tip posterior superiorly. This area is also part of an olecranon osteophyte. This area also demonstrated slight appearance of irregularity in 2020 although the osteophyte was less prominent. Soft tissues: Unremarkable. No significant effusion. IMPRESSION: Irregularity at the olecranon osteophyte posteriorly as above. While this could represent fracture, mild irregularity was also present 2020 although slightly less prominent, likely secondary to smaller osteophyte. Recommend correlation point tenderness and if concern persists, follow-up imaging in 7-10 days. Dictated by: Avis Vuong M.D. on 09/27/2024 at 18:45 Approved by: Avis Vuong M.D. on 09/27/2024 at 18:50
[2024-09-27] MEDS: ACETAMINOPHEN 325 MG TABLET 650 MG PO (19:02)
[2024-09-27] MEDS: predniSONE 20 MG TABLET PO (19:26)
[2024-09-27 19:34] LABS: Add Manual Diff / Slide Review NO; Basophils Absolute Auto 0 /uL (0-100); Basophils Percent Auto 0.5 % (0-2); Eosinophils Absolute Auto 0 /uL (0-450); Eosinophils Percent Auto 0.1 % (2-4); Hematocrit 43.2 % (36-46); Hemoglobin 14.1 g/dL (12.0-16.0); Lymphocytes Absolute Auto 900 /uL (1100-4500); Lymphocytes Percent Auto 10.2 % (25-40); Mean Corpuscular HGB Conc 32.5 % (30-36); Mean Corpuscular Hemoglobin 30.4 PG (26-34); Mean Corpuscular Volume 93.5 fL (80-100); Monocytes Absolute Auto 900 /uL (0-900); Monocytes Percent Auto 10.6 % (3-14); Neutrophils Absolute Auto 6700 /uL (1500-7000); Neutrophils Percent Auto 78.6 % (50-75); Platelet Count 207 X10^3/uL (150-400); Red Blood Cell Count 4.63 X10^6/uL (4.0-5.2); Red Cell Distribution Width 15.1 % (11.6-14.8); White Blood Cell Count 8.6 X10^3/uL (4.5-11.0)
[2024-09-27 19:45] LABS: Alanine Aminotransferase 75 IU/L (<35); Albumin 3.5 g/dL (3.5-5.0); Albumin Globulin Ratio 1.2 (1.0-2.8); Alkaline Phosphatase 87 U/L (38-126); Aspartate Aminotransferase 39 IU/L (14-36); BUN Creatinine Ratio 39.1 (6-22); Bilirubin Total 0.7 mg/dL (0.2-1.3); Blood Urea Nitrogen 36 mg/dL (7-17); Calcium 10.7 mg/dL (8.4-10.2); Carbon Dioxide 26 mmol/L (22-32); Chloride 103 mmol/L (98-107); Estimated Glomerular Filt Rate > 60 mL/min (>60); Glucose 260 mg/dL (80-110); HEMOLYSIS < 15 (0-50); Sodium 134 mmol/L (137-145); Total Protein 6.5 g/dL (6.3-8.2)
[2024-09-27 19:46] LABS: Lactate (Lactic Acid) 0.9 mmol/L (0.7-2.1)
[2024-09-27 19:49] LABS: C-Reactive Protein Quant 7.9 mg/dL (<1.0)
[2024-09-27] MEDS: TRAMADOL 50 MG TABLET PO (20:44)
[2024-09-27 20:45] LABS: Erythrocyte Sedimentation Rate 42 MM/HR (0-20)
--- NOTE | 2024-09-27 20:52 | PC.NURSE ---
pt refusing to walk states she does not like the walker, is going to retrieve pt's walker
[2024-09-27 21:35] VITALS: BP 136/70; PULSE 86; RESP 18; O2SAT 98
== END 2024-09-27 21:36 | disposition home or self-care (01) ==
PROVIDERS: Physician Assistant; Emergency Provider Emergency Medicine; Family Provider Internal Medicine; PCP Internal Medicine
DX: M10.9 Gout, unspecified (principal); M54.32 Sciatica, left side; R60.9 Edema, unspecified; E66.9 Obesity, unspecified; Z68.37 Body mass index [BMI] 37.0-37.9, adult
CPT/HCPCS: 36415; 73080; 73090; 73200; 80053; 83605; 84550; 85025; 85651; 86140; 93971; 99283; 99284

== ENCOUNTER → 2024-10-04 12:51 | Outpatient (CLI) | payer MEDICARE, SELFPAY ==
[2022-05-29 09:21] VITALS: BMI 40.8
--- NOTE | 2024-10-04 12:52 | DI.NM.S_ITS ---
PROCEDURE: NM PUL VENT AND PERFUSION RADIOPHARMACEUTICAL: 38.0 mCi Tc-99m DTPA aerosol by inhalation and 10.8 mCi Tc-99m MAA intravenously. INDICATIONS: MILD PULMONIC REGURG AND RV DILATION TECHNIQUE: Ventilation images were obtained first with Tc-99m DTPA aerosol. Subsequently, perfusion images were acquired after intravenous injection of Tc-99m MAA. Anterior, posterior, SHELTON, GREEK, RPO, LPO, left and right lateral views were obtained. COMPARISON: [facility], CR, XR CHEST 2V, 10/04/2024, 13:05. FINDINGS: No significant ventilation or perfusion defects. IMPRESSION: No significant ventilation or perfusion defects. Consider chest CT for further evaluation Dictated by: Sánchez Crisostomo M.D. on 10/04/2024 at 14:59 Approved by: Sánchez Crisostomo M.D. on 10/04/2024 at 15:02
--- NOTE | 2024-10-04 13:00 | DI.RAD.S_ITS ---
PROCEDURE: XR CHEST 2V INDICATIONS: MILD PULMONIC REGURG AND RV DILATION TECHNIQUE: 2 views of the chest were acquired. COMPARISON: None. FINDINGS: Surgical changes and devices: None. Lungs and pleura: Lungs are clear. No pleural effusions or pneumothorax. Mediastinum: Mediastinal contours are normal. Heart size is enlarged. Bones and chest wall: No suspicious bony abnormalities. Soft tissues appear unremarkable. IMPRESSION: No acute cardiopulmonary pathology. Dictated by: Richi Lomax M.D. on 10/04/2024 at 14:19 Approved by: Richi Lomax M.D. on 10/04/2024 at 14:20
== END ==
PROVIDERS: Family Provider Internal Medicine; PCP Internal Medicine; Referring Provider Internal Medicine; Visit Provider Internal Medicine
DX: I37.1 Nonrheumatic pulmonary valve insufficiency (principal); I51.7 Cardiomegaly
CPT/HCPCS: 71046; 78582; A9539; A9540

== ENCOUNTER → 2024-10-12 07:39 | Outpatient (CLI) | payer MEDICARE, SELFPAY ==
[2022-05-29 09:21] VITALS: BMI 40.8
[2024-10-12 09:36] LABS: Hemoglobin A1C% w Est Avg Glu 6.6 % (4.0-6.0)
[2024-10-12 10:14] LABS: Add Manual Diff / Slide Review NO; Basophils Absolute Auto 0 /uL (0-100); Basophils Percent Auto 0.7 % (0-2); Eosinophils Absolute Auto 200 /uL (0-450); Eosinophils Percent Auto 2.5 % (2-4); Hematocrit 43.9 % (36-46); Hemoglobin 14.4 g/dL (12.0-16.0); Lymphocytes Absolute Auto 1200 /uL (1100-4500); Lymphocytes Percent Auto 19.1 % (25-40); Mean Corpuscular HGB Conc 32.7 % (30-36); Mean Corpuscular Hemoglobin 30.4 PG (26-34); Mean Corpuscular Volume 92.8 fL (80-100); Monocytes Absolute Auto 600 /uL (0-900); Monocytes Percent Auto 8.8 % (3-14); Neutrophils Absolute Auto 4500 /uL (1500-7000); Neutrophils Percent Auto 68.9 % (50-75); Platelet Count 256 X10^3/uL (150-400); Red Blood Cell Count 4.73 X10^6/uL (4.0-5.2); Red Cell Distribution Width 15.3 % (11.6-14.8); White Blood Cell Count 6.5 X10^3/uL (4.5-11.0)
[2024-10-12 10:55] LABS: Alanine Aminotransferase 54 IU/L (<35); Albumin 3.4 g/dL (3.5-5.0); Albumin Globulin Ratio 1.4 (1.0-2.8); Alkaline Phosphatase 76 U/L (38-126); Aspartate Aminotransferase 29 IU/L (14-36); BUN Creatinine Ratio 37.6 (6-22); Bilirubin Total 0.6 mg/dL (0.2-1.3); Blood Urea Nitrogen 32 mg/dL (7-17); Calcium 10.5 mg/dL (8.4-10.2); Carbon Dioxide 28 mmol/L (22-32); Chloride 103 mmol/L (98-107); Cholesterol 100 mg/dL (140-199); Estimated Glomerular Filt Rate > 60 mL/min (>60); Globulin 2.4 g/dL (1.7-4.1); Glucose 119 mg/dL (80-110); HDL Cholesterol 50 mg/dL (40-60); HEMOLYSIS < 15 (0-50); LDL Cholesterol Calculated 34 mg/dL (<100); Magnesium 1.8 mg/dL (1.6-2.3); Potassium 4.4 mmol/L (3.4-5.1); Sodium 137 mmol/L (137-145); Total Protein 5.8 g/dL (6.3-8.2); Triglycerides 82 mg/dL (35-150); Uric Acid 6.3 mg/dL (2.5-6.2)
[2024-10-12 11:11] LABS: Free T4, Direct Thyroxine 1.26 ng/dL (0.78-2.19)
[2024-10-12 11:25] LABS: Thyroid Stimulating Hormone 4.32 uIU/mL (0.47-4.68)
[2024-10-15 06:08] LABS: Calcium 10.4 mg/dL (8.7-10.3); Parathyroid Hormone, Intact 95 pg/mL (15-65)
== END ==
PROVIDERS: Family Provider Internal Medicine; PCP Internal Medicine; Referring Provider Internal Medicine; Visit Provider Internal Medicine
DX: E83.52 Hypercalcemia (principal); N18.31 Chronic kidney disease, stage 3a; E11.69 Type 2 diabetes mellitus with other specified complication; E78.5 Hyperlipidemia, unspecified; M10.9 Gout, unspecified; I12.9 Hypertensive chronic kidney disease with stage 1 through stage 4 chronic kidney disease, or unspecified chronic kidney disease
CPT/HCPCS: 36415; 80053; 80061; 82310; 83036; 83735; 83970; 84439; 84443; 84550; 85025

== ENCOUNTER → 2024-11-02 08:54 | Outpatient (CLI) | payer MEDICARE, SELFPAY ==
[2022-05-29 09:21] VITALS: BMI 40.8
[2024-11-02 09:35] LABS: Bilirubin Urine UA NEGATIVE (NEGATIVE); Color Urine UA YELLOW; Glucose Urine UA NEGATIVE (Negative); Ketones Urine UA NEGATIVE (NEGATIVE); Leukocyte Esterase Urine UA 1+ (NEGATIVE); Nitrite Urine UA POSITIVE (Negative); Occult Blood Urine UA TRACE-INTACT (Negative); Protein Urine UA NEGATIVE (Negative); Urobilinogen Urine UA 0.2 E.U./dL (0.2)
[2024-11-02 09:36] LABS: Appearance Urine UA SL CLOUDY; pH Urine UA 5.5 (4.5-8.0)
[2024-11-02 09:59] LABS: Bacteria Urine Many (>30); Culture Indicated Urine Specimen Cultured; RBC Urine None Seen (0-5/HPF); Squamous Epithelial Cell Urine 1-5 /HPF (0-5/HPF); Urine Volume 10mL (spun); WBC Urine 10-30/HPF (0-5/HPF)
== END ==
PROVIDERS: Family Provider Internal Medicine; PCP Internal Medicine; Referring Provider Internal Medicine; Visit Provider Internal Medicine
DX: R31.9 Hematuria, unspecified (principal)
CPT/HCPCS: 81001; 87077; 87086

== ENCOUNTER → 2024-11-16 07:47 | Outpatient (CLI) | payer MEDICARE, SELFPAY ==
[2022-05-29 09:21] VITALS: BMI 40.8
[2024-11-16 08:58] LABS: Alanine Aminotransferase 46 IU/L (<35); Albumin 3.5 g/dL (3.5-5.0); Albumin Globulin Ratio 1.5 (1.0-2.8); Alkaline Phosphatase 88 U/L (38-126); Aspartate Aminotransferase 30 IU/L (14-36); BUN Creatinine Ratio 40.2 (6-22); Bilirubin Total 0.8 mg/dL (0.2-1.3); Blood Urea Nitrogen 33 mg/dL (7-17); Calcium 10.9 mg/dL (8.4-10.2); Carbon Dioxide 29 mmol/L (22-32); Chloride 103 mmol/L (98-107); Estimated Glomerular Filt Rate > 60 mL/min (>60); Globulin 2.4 g/dL (1.7-4.1); Glucose 105 mg/dL (80-110); HEMOLYSIS < 15 (0-50); Sodium 138 mmol/L (137-145); Total Protein 5.9 g/dL (6.3-8.2)
== END ==
PROVIDERS: Family Provider Internal Medicine; PCP Internal Medicine; Referring Provider Internal Medicine; Visit Provider Internal Medicine
DX: I12.9 Hypertensive chronic kidney disease with stage 1 through stage 4 chronic kidney disease, or unspecified chronic kidney disease (principal); N18.31 Chronic kidney disease, stage 3a
CPT/HCPCS: 36415; 80053

== ENCOUNTER → 2024-12-22 15:49 | Outpatient (CLI) | payer MEDICARE, SELFPAY ==
[2022-05-29 09:21] VITALS: BMI 40.8
--- NOTE | 2024-12-22 15:50 | DI.US.S_ITS ---
PROCEDURE: US THYROID INDICATIONS: THYROID NODULES TECHNIQUE: Real-time scanning was performed of the thyroid gland, with image documentation. COMPARISON: [facility], US, US THYROID, 12/22/2023, 11:38. FINDINGS: Thyroid: Right lobe measures 4.8 x 1.6 x 2.7 cm. Left lobe measures 3.7 x 1.4 x 1.9 cm. Isthmus is 0.5 cm thick. Echotexture is homogeneous. Nodule number: 1 Location: Right superior pole Size: 1.9 x 1.7 x 1.5 cm, previously 1.7 x 1.6 x 1.4 cm. Composition: Solid Echogenicity: Isoechoic Shape: wider than tall. Margins: Smooth Echogenic foci: No Total points: Three ACR TI-RADS category: Three Nodule number: 2 Location: Right mid inferior pole Size: 1.0 x 1.0 x 1.0 cm, previously 1.1 x 1.1 x 1.1 cm. Composition: Solid Echogenicity: Hypoechoic Shape: wider than tall. Margins: Smooth Echogenic foci: No Total points: Four ACR TI-RADS category: Four Nodule number: 3 Location: Left superior pole Size: 0.8 x 0.7 x 0.6 cm, previously 0.7 x 0.5 x 0.5 cm. Composition: Solid Echogenicity: Hypoechoic Shape: wider than tall. Margins: Smooth Echogenic foci: Macro calcification Total points: Seven ACR TI-RADS category: Five IMPRESSION: Mild increase in size nodule 1. This remains category three, follow-up in one year. Stable appearance of category four nodule 2. One year follow-up. Stable appearance of subcentimeter left thyroid nodule 3. One year follow-up. ACR TI-RADS definitions and recommendations: TI-RADS 1 (benign): 0 points. FNA not needed. TI-RADS 2 (not suspicious): 2 points. FNA not needed. TI-RADS 3: 3 points. * FNA if 2.5 cm or larger, follow up if 1.5 cm or larger (at 1, 3, and 5 years). TI-RADS 4: 4-6 points. * FNA if 1.5 cm or larger, follow up if 1 cm or larger (at 1, 2, 3, and 5 years). TI-RADS 5: 7 points or more. * FNA if 1 cm or larger, follow up if 0.5 cm or larger (every year for 5 years). Dictated by: Ivon Zhao M.D. on 12/24/2024 at 13:31 Approved by: Ivon hZao M.D. on 12/24/2024 at 13:37
== END ==
LOC: US 15:49
PROVIDERS: Family Provider Internal Medicine; PCP Internal Medicine; Referring Provider Internal Medicine; Visit Provider Internal Medicine
DX: E04.2 Nontoxic multinodular goiter (principal)
CPT/HCPCS: 76536

== ENCOUNTER 2025-02-07 15:15 | Outpatient (RCR) | payer MEDICARE, SELFPAY ==
[2022-05-29 09:21] VITALS: BMI 40.8
--- NOTE | 2025-01-04 15:33 | PT.OIE ---
Current Diagnoses Pain in right shoulder (01/04/25) Soft tissue disorder, unspecified (01/04/25) Weakness (01/04/25) Past Medical History (Last Updated 12/12/24 @ 16:09 by Noah Jorgensen MD) Abnormal EKG Carpal tunnel syndrome (~2005) Chronic renal failure, stage 3a Colon polyps (02/2007) CVA (cerebral vascular accident) (12/06/19) Degenerative arthritis of left knee Diabetes (Unknown) Diabetic peripheral neuropathy Fatigue Gout Hypercalcemia Hyperlipemia (Unknown) Hypertension (Unknown) Leg swelling Low back pain (~2015) Morbid obesity Osteoarthritis (Unknown) Parathyroid adenoma Persistent atrial fibrillation Status post stroke Thyroid nodule Unilateral primary osteoarthritis, left knee Past Surgical History (Last Reviewed 09/27/24 @ 18:50 by Heather Cheung PA-C) History of carpal tunnel release History of knee replacement (2003) History of surgery History of surgery Hx of arthroscopy of right knee Hx of laminectomy S/P cataract extraction S/P total abdominal hysterectomy and bilateral salpingo-oophorectomy Status post delivery Visit Care Team Role Provider Type Noah Jorgensen MD Attending Provider Physician Family Provider Primary Care Provider Referring Provider Specialty: Internal Medicine Address: [address] [place] [address], [address], [facility] Email: [email or web address] Physical Therapy Initial Evaluation PT-OP-A Visit Information Start: 01/04/25 08:12 Freq: Status: Active Protocol: Document 01/04/25 13:46 SAK (Rec: 01/04/25 15:33 SAK [id number]) Out-Patient Physical Therapy Visit Information Visit Information Visit Type Initial Evaluation Visit Start Time 13:47 Visit Stop Time 14:45 Visit Number 1 Evaluation Information Evaluation Date 01/04/25 Precautions Precautions prior CVA, sleeps in sleep chair, not bed. History knee replacement, back pain. A-fib with severe fatigue, thyroid nodules PT-OP-B Current Condition Start: 01/04/25 08:12 Freq: Status: Active Protocol: Document 01/04/25 13:46 SAK (Rec: 01/04/25 15:33 SAK [id number]) Current Condition History of Current Condition Onset Date 6-8 months ago Current Complaints right shoulder pain History of Current Condition 2015 reached back behind her, kayla SALDANA, discussed surgery with Dr. Melendez, no surgery. 2017 vertigo, fell and tore L shoulder, no surgery. Doesn't think she did PT for shoulders, did for LBP and TKA . 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 Not currently doing any exercise, minimal activity. Most recently no injury, but exacerbation of right shoulder pain. States so fatigued, thinks from a-fib ,I don't want to do anything. Can walk up to 200 ft with walker. No pain with arm at side, pain as high as 9/10 when tries to lift or reach to side. States she had daughter do some deep pressure between shoulder and neck that felt good. Has wall bar for use with leg exercise but hasn't used in a long time . Prior Treatments and Tests no imaging Future Testing and Treatments Planned return to Dr. Jorgensen if PT not helpful. PT-OP-C Subjective Start: 01/04/25 08:12 Freq: Status: Active Protocol: Document 01/04/25 13:46 [facility] (Rec: 01/04/25 15:33 [facility] [id number]) OP-PT Subjective Patient Comments Patient Comments 2014 reached back behind her, kayla SALDANA, discussed surgery with Dr. Melendez, no surgery. 2017 vertigo, fell and tore L shoulder, no surgery. Doesn't think she did PT for shoulders, did for LBP and TKA . 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 Not currently doing any exercise, minimal activity. Most recently no injury, but exacerbation of right shoulder pain. States so fatigued, thinks from a-fib ,I don't want to do anything. Can walk up to 200 ft with walker. No pain with arm at side, pain as high as 9/10 when tries to lift or reach to side. States she had daughter do some deep pressure between shoulder and neck that felt good. Has wall bar for use with leg exercise but hasn't used in a long time . Patient Questionnaires Quick Dash- Upper Extremity Quick Dash UE Score 48 OP-PT Pain Assessment Pain Assessment Grid Paper Pain Assessment Grid Completed Yes Location Right Shoulder Intensity 9 Scale Used Numeric (0 - 10) Description Aching,Radiating,Sharp,Spasm, Tender,Tightness,With Movement Frequency Frequent Pain Aggravating Factors Activity Pain Alleviating Factors Inactivity,Rest PT-OP-E Functional Tests Start: 01/04/25 08:12 Freq: Status: Active Protocol: Document 01/04/25 13:46 SAK (Rec: 01/04/25 15:33 [facility] [id number]) Functional Tests Apley's Scratch Test Action 1- Left opp shld Action 1- Right middle of chest Action 2- Left T2 Action 2- Right lateral neck Action 3- Left T12 Action 3- Right L5 PT-OP-F Manual Assessment Start: 01/04/25 08:12 Freq: Status: Active Protocol: Document 01/04/25 13:46 SAK (Rec: 01/04/25 15:33 [facility] [id number]) Manual Assessments Joint Mobility Assessment Joint Mobility Assessment Not assessed this date, patient does not lay supine, will put in modified supine on treatment table next session. PT-OP-J Posture/Palpation/Skin Start: 01/04/25 08:12 Freq: Status: Active Protocol: Document 01/04/25 13:46 SAK (Rec: 01/04/25 15:33 [facility] [id number]) Posture Evaluation Position Sitting Head/C-Spine Posture Forward Head T-Spine Posture Increased Kyphosis Scapula Posture (R) Protracted Arm Posture (L) Internally Rotated,(R) Internally Rotated Palpation Assessment Location T4 central Palpation Findings Tenderness periscap Palpation Findings Tenderness Palpation Details lateral UT Palpation Findings Soft Tissue Tightness,Muscle Guarding RC insertion Palpation Findings Tenderness PT-OP-L Special Tests Start: 01/04/25 08:12 Freq: Status: Active Protocol: Document 01/04/25 13:46 SAK (Rec: 01/04/25 15:33 [facility] [id number]) Special Tests Shoulder Special Tests Drop Arm Rotator Cuff Test Results + PT-OP-M Strength Start: 01/04/25 08:12 Freq: Status: Active Protocol: Document 01/04/25 13:46 SAK (Rec: 01/04/25 15:33 SAK [id number]) Shoulder Strength Shoulder Manual Muscle Testing Right Flexion 3- Fair- Extension 3+ Fair+ Abduction (C5) 3- Fair- Adduction 3+ Fair+ External Rotation 3+ Fair+ Internal Rotation 3+ Fair+ Left Flexion 4+ Good+ Extension 4+ Good+ Abduction (C5) 4+ Good+ Adduction 4+ Good+ External Rotation 4+ Good+ Elbow/Forearm Strength Elbow and Forearm Manual Muscle Testing Right Flexion (C6) 4 Good Extension (C7) 4 Good Left Flexion (C6) 5 Normal Extension (C7) 5 Normal PT-OP-Q Treatments Start: 01/04/25 08:12 Freq: Status: Active Protocol: Document 01/04/25 13:46 [facility] (Rec: 01/04/25 15:33 [facility] [id number]) Therapeutic Exercises Sitting Exercises scap retraction Side bilateral Reps/Minutes 5x5 Comments issued written HO shld sandee Sitting Exercise Name flex,ext,ab,ad, ER,IR Side right Comments issued written HO PT-OP-T Assessment and Plan Start: 01/04/25 08:12 Freq: Status: Active Protocol: Document 01/04/25 13:46 [facility] (Rec: 01/04/25 15:33 [facility] [id number]) Physical Therapy Assessment Rehab Potential Rehabilitation Potential Good Evaluation Complexity Number of Personal Factors/Comorbidities 1-2 Number of Body Systems Impaired 3 Clinical Presentation at Evaluation Evolving Impairments Impairments Functional Activities,Pain,ROM ,Soft Tissue Mobility,Strength Other Concerns Barriers to Rehabilitation history CVA, DM, a-fib, diabetic neuropathy, gout, thyroid nodules, juli TKA, carpal tunel surgery Goals Three Impairment impaired right shoulder ROM and strength Short Term Goal (STG) Patient to be instructed in individualized, progressive HEP for purposes of right shoulder ROM and strengthening STG Duration 02/01/25 Branding Machine Operator Goal (LTG) Patient will be independent and compliant with HEP and demonstrate improvement in ROM to WFL and strength to at least 4+/5 to allow her to perform all usual activities LTG Duration 03/04/25 Two Impairment impaired functional right UE use with QuickDash score 48% Short Term Goal (STG) Decrease Quickdash score to no greater than 30% as measure of improved right shoulder function STG Duration 02/01/25 Branding Machine Operator Goal (LTG) Decrease Quickdash score to no greater than 20% as measure of improved right shoulder function and quality of life LTG Duration 03/04/25 One Impairment Right shoulder pain as high as 9/10 with reaching overhead or to side Short Term Goal (STG) decrease pain to no greater than 6/10 with reaching overhead or out to side for purposes of daily activities STG Duration 02/01/25 Skilled Nursing Goal (LTG) Derease pain to no greater than 3/10 with reaching overhead or out to the side for purposes of daily activities LTG Duration 03/04/25 Assessment Summary Assessment Patient presents to PT with function-limiting pain right shoulder of a chronic nature but with exacerbation for no known reason starting 6-8 months ago with pain levels reaching 9/10 with attempts to reach overhead or out to the side, can reach cautiously behind her back with more minimal pain for ADL's. Patient is limited in right UE elevation actively to 45 degrees, PROM to 97. Moderate ROM and strength impairments on the right. Drop arm test for rotator cuff involvement is positive. She has had prior juli shoulder injuries and consulted educational technology specialist but no surgery or rehab. At this time the pain is moderately limiting her function. She is right handed . She uses a wheelchair or 4WW for mobility needs and has to use her UE's to assist with transfers. She has multiple medical issues including current severe fatigue, DM, history CVA affecting her right side which could impact her recovery. Feel she would benefit from PT to decrease her pain and improve her ROM, strength and function. POC was discussed and patient was in agreement. Physical Therapy Plan Frequency and Duration Frequency of Treatment 2x/Week Duration of treatment (weeks) 8 Plan of Care Start Date 01/04/25 Plan of Care End Date 03/04/25 Therapeutic Interventions Therapeutic Interventions Home Exercise Program,Joint Mobilizations,Manual Therapy, Patient/Caregiver Education, Self-Care/Home Management,Soft Tissue Mobilization,Taping, Therapeutic Activities, Therapeutic Exercises Modalities Cold Pack/Ice Massage,Electric Stimulation,Hot Packs, Infrared Therapy,Iontophoresis ,Ultrasound Next Visit Focus/Plan Next Note Type Treatment Note Next Visit Plan Review scapular squeeze, shoulder isometrics ex, gentle progression of ther ex as tolerated possible table slide , sh ER with wand. Manual treatment to decrease soft tissue tension and promote healing. Consider cold laser or ultrasound
--- NOTE | 2025-01-04 15:33 | PT.OPPOC ---
Physical, Occupational & Speech Therapy At [facility] Current Diagnoses Pain in right shoulder (01/04/25) Soft tissue disorder, unspecified (01/04/25) Weakness (01/04/25) Visit Care Team Role Provider Type Noah Jorgensen MD Attending Provider Physician Family Provider Primary Care Provider Referring Provider Specialty: Internal Medicine Address: [address] [place] [address], [address], [facility] Email: [email or web address] Plan Of Care PT-OP-B Current Condition Start: 01/04/25 08:12 Freq: Status: Active Protocol: Document 01/04/25 13:46 SAK (Rec: 01/04/25 15:33 SAK [id number]) Current Condition History of Current Condition Onset Date 6-8 months ago Current Complaints right shoulder pain History of Current Condition 2014 reached back behind her, torn RC, discussed surgery with Dr. Melendez, no surgery. 2017 vertigo, fell and tore L shoulder, no surgery. Doesn't think she did PT for shoulders, did for LBP and TKA . 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 Not currently doing any exercise, minimal activity. Most recently no injury, but exacerbation of right shoulder pain. States so fatigued, thinks from a-fib ,I don't want to do anything. Can walk up to 200 ft with walker. No pain with arm at side, pain as high as 9/10 when tries to lift or reach to side. States she had daughter do some deep pressure between shoulder and neck that felt good. Has wall bar for use with leg exercise but hasn't used in a long time . Prior Treatments and Tests no imaging Future Testing and Treatments Planned return to Dr. Jorgensen if PT not helpful. PT-OP-T Assessment and Plan Start: 01/04/25 08:12 Freq: Status: Active Protocol: Document 01/04/25 13:46 SAK (Rec: 01/04/25 15:33 SAK [id number]) Physical Therapy Assessment Rehab Potential Rehabilitation Potential Good Evaluation Complexity Number of Personal Factors/Comorbidities 1-2 Number of Body Systems Impaired 3 Clinical Presentation at Evaluation Evolving Impairments Impairments Functional Activities,Pain,ROM ,Soft Tissue Mobility,Strength Other Concerns Barriers to Rehabilitation history CVA, DM, a-fib, diabetic neuropathy, gout, thyroid nodules, juli TKA, carpal tunel surgery Goals Three Impairment impaired right shoulder ROM and strength Short Term Goal (STG) Patient to be instructed in individualized, progressive HEP for purposes of right shoulder ROM and strengthening STG Duration 02/01/25 Skilled Nursing Goal (LTG) Patient will be independent and compliant with HEP and demonstrate improvement in ROM to WFL and strength to at least 4+/5 to allow her to perform all usual activities LTG Duration 03/04/25 Two Impairment impaired functional right UE use with QuickDash score 48% Short Term Goal (STG) Decrease Quickdash score to no greater than 30% as measure of improved right shoulder function STG Duration 02/01/25 Rotary Furnace Tender Goal (LTG) Decrease Quickdash score to no greater than 20% as measure of improved right shoulder function and quality of life LTG Duration 03/04/25 One Impairment Right shoulder pain as high as 9/10 with reaching overhead or to side Short Term Goal (STG) decrease pain to no greater than 6/10 with reaching overhead or out to side for purposes of daily activities STG Duration 02/01/25 Rotary Furnace Tender Goal (LTG) Derease pain to no greater than 3/10 with reaching overhead or out to the side for purposes of daily activities LTG Duration 03/04/25 Assessment Summary Assessment Patient presents to PT with function-limiting pain right shoulder of a chronic nature but with exacerbation for no known reason starting 6-8 months ago with pain levels reaching 9/10 with attempts to reach overhead or out to the side, can reach cautiously behind her back with more minimal pain for ADL's. Patient is limited in right UE elevation actively to 45 degrees, PROM to 97. Moderate ROM and strength impairments on the right. Drop arm test for rotator cuff involvement is positive. She has had prior juli shoulder injuries and consulted sales development specialist but no surgery or rehab. At this time the pain is moderately limiting her function. She is right handed . She uses a wheelchair or 4WW for mobility needs and has to use her UE's to assist with transfers. She has multiple medical issues including current severe fatigue, DM, history CVA affecting her right side which could impact her recovery. Feel she would benefit from PT to decrease her pain and improve her ROM, strength and function. POC was discussed and patient was in agreement. Physical Therapy Plan Frequency and Duration Frequency of Treatment 2x/Week Duration of treatment (weeks) 8 Plan of Care Start Date 01/04/25 Plan of Care End Date 03/04/25 Therapeutic Interventions Therapeutic Interventions Home Exercise Program,Joint Mobilizations,Manual Therapy, Patient/Caregiver Education, Self-Care/Home Management,Soft Tissue Mobilization,Taping, Therapeutic Activities, Therapeutic Exercises Modalities Cold Pack/Ice Massage,Electric Stimulation,Hot Packs, Infrared Therapy,Iontophoresis ,Ultrasound Next Visit Focus/Plan Next Note Type Treatment Note Next Visit Plan Review scapular squeeze, shoulder isometrics ex, gentle progression of ther ex as tolerated possible table slide , sh ER with wand. Manual treatment to decrease soft tissue tension and promote healing. Consider cold laser or ultrasound Plan of Care Dates Plan of Care Start Date 01/04/25 Plan of Care End Date 03/04/25 Electronically Signed by: Sobia Miller, PT 01/04/25 4206 If you are in agreement with this Plan of Care, please return a signed and dated copy. I have reviewed this Plan of Care and certify that the skilled therapy services above are required to meet the patient?s needs. Physician Signature Date Printed Name and Credentials Clinical Instructor Signature Printed Name and Credentials
--- NOTE | 2025-01-10 17:12 | PT.OTN ---
Current Diagnoses Pain in right shoulder (01/10/25) Soft tissue disorder, unspecified (01/10/25) Weakness (01/10/25) Physical Therapy Treatment Note PT-OP-A Visit Information Start: 01/04/25 08:12 Freq: Status: Active Protocol: Document 01/10/25 15:19 [facility] (Rec: 01/10/25 16:11 [facility] [id number]) Out-Patient Physical Therapy Visit Information Visit Information Visit Type Treatment Note Visit Start Time 15:20 Visit Stop Time 16:08 Visit Number 2 Evaluation Information Evaluation Date 01/04/25 Precautions Precautions prior CVA, sleeps in sleep chair, not bed. History knee replacement, back pain. A-fib with severe fatigue, thyroid nodules PT-OP-B Current Condition Start: 01/04/25 08:12 Freq: Status: Active Protocol: Document 01/10/25 15:19 [facility] (Rec: 01/10/25 16:11 [facility] [id number]) Current Condition History of Current Condition Onset Date 6-8 months ago Current Complaints right shoulder pain History of Current Condition 2014 reached back behind her, torn RC, discussed surgery with Dr. Melendez, no surgery. 2017 vertigo, fell and tore L shoulder, no surgery. Doesn't think she did PT for shoulders, did for LBP and TKA . 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 Not currently doing any exercise, minimal activity. Most recently no injury, but exacerbation of right shoulder pain. States so fatigued, thinks from a-fib ,I don't want to do anything. Can walk up to 200 ft with walker. No pain with arm at side, pain as high as 9/10 when tries to lift or reach to side. States she had daughter do some deep pressure between shoulder and neck that felt good. Has wall bar for use with leg exercise but hasn't used in a long time . Prior Treatments and Tests no imaging Future Testing and Treatments Planned return to Dr. Jorgensen if PT not helpful. PT-OP-C Subjective Start: 01/04/25 08:12 Freq: Status: Active Protocol: Document 01/10/25 15:19 [facility] (Rec: 01/10/25 16:11 [facility] [id number]) OP-PT Subjective Patient Comments Patient Comments Had about 2 days of dec pain after first session. Able to do all exercises, holds elbow to side to reach out to side, maybe a little better, modfied as instructed. Prefers to still stay in w/c for ex and soft tissue mobilization. PT-OP-E Functional Tests Start: 01/04/25 08:12 Freq: Status: Active Protocol: Document 01/04/25 13:46 SAK (Rec: 01/04/25 15:33 [facility] [id number]) Functional Tests Apley's Scratch Test Action 1- Left opp shld Action 1- Right middle of chest Action 2- Left T2 Action 2- Right lateral neck Action 3- Left T12 Action 3- Right L5 PT-OP-F Manual Assessment Start: 01/04/25 08:12 Freq: Status: Active Protocol: Document 01/04/25 13:46 SAK (Rec: 01/04/25 15:33 [facility] [id number]) Manual Assessments Joint Mobility Assessment Joint Mobility Assessment Not assessed this date, patient does not lay supine, will put in modified supine on treatment table next session. PT-OP-J Posture/Palpation/Skin Start: 01/04/25 08:12 Freq: Status: Active Protocol: Document 01/04/25 13:46 [facility] (Rec: 01/04/25 15:33 [facility] [id number]) Posture Evaluation Position Sitting Head/C-Spine Posture Forward Head T-Spine Posture Increased Kyphosis Scapula Posture (R) Protracted Arm Posture (L) Internally Rotated,(R) Internally Rotated Palpation Assessment Location T4 central Palpation Findings Tenderness periscap Palpation Findings Tenderness Palpation Details lateral UT Palpation Findings Soft Tissue Tightness,Muscle Guarding RC insertion Palpation Findings Tenderness PT-OP-L Special Tests Start: 01/04/25 08:12 Freq: Status: Active Protocol: Document 01/04/25 13:46 [facility] (Rec: 01/04/25 15:33 [facility] [id number]) Special Tests Shoulder Special Tests Drop Arm Rotator Cuff Test Results + PT-OP-M Strength Start: 01/04/25 08:12 Freq: Status: Active Protocol: Document 01/04/25 13:46 SAK (Rec: 01/04/25 15:33 [facility] [id number]) Shoulder Strength Shoulder Manual Muscle Testing Right Flexion 3- Fair- Extension 3+ Fair+ Abduction (C5) 3- Fair- Adduction 3+ Fair+ External Rotation 3+ Fair+ Internal Rotation 3+ Fair+ Left Flexion 4+ Good+ Extension 4+ Good+ Abduction (C5) 4+ Good+ Adduction 4+ Good+ External Rotation 4+ Good+ Elbow/Forearm Strength Elbow and Forearm Manual Muscle Testing Right Flexion (C6) 4 Good Extension (C7) 4 Good Left Flexion (C6) 5 Normal Extension (C7) 5 Normal PT-OP-Q Treatments Start: 01/04/25 08:12 Freq: Status: Active Protocol: Document 01/10/25 15:19 [facility] (Rec: 01/10/25 16:11 [facility] [id number]) Therapeutic Exercises Sitting Exercises pulleys Sitting Exercise Name flexion Equipment Used towel roll along spine Reps/Minutes 10x Comments cues for pain-free ROM add scaption next session table slide Equipment Used pillow case, counter Reps/Minutes 10x Comments cues for pain-free ROM shld flex Sitting Exercise Name PROM Equipment Used dowel, towel roll along spine Reps/Minutes 10x Comments cues for pain-free ROM sh ER Sitting Exercise Name PROM Equipment Used dowel, towel roll along spine Reps/Minutes 10x Comments cues for pain-free ROM bicep curl Equipment Used dowel,towel roll along spine Reps/Minutes 10x scap retraction Side bilateral Reps/Minutes 5x5 Comments verbal and tactile cues shld sandee Sitting Exercise Name flex,ext,ab,ad, ER,IR HEP review Side right Comments Patient compliant Manual Therapy Treatment Consent Patient gave verbal consent for manual Yes treatment Soft Tissue Mobilization UT, RC Mobilization Type Cross-Friction,Trigger Point Release Intensity/Depth mod Body Position Sitting PT-OP-R Modalities Start: 01/04/25 08:12 Freq: Status: Active Protocol: Document 01/10/25 15:19 [facility] (Rec: 01/10/25 16:11 [facility] [id number]) Hot Pack/Cold Pack Treatment Cold Pack Location right shoulder Patient Position Sitting Patient Tolerance Good Comments during pt education HEP, issued HO PT-OP-T Assessment and Plan Start: 01/04/25 08:12 Freq: Status: Active Protocol: Document 01/10/25 15:19 [facility] (Rec: 01/10/25 16:11 [facility] [id number]) Physical Therapy Assessment Impairments Impairments Functional Activities,Pain,ROM ,Soft Tissue Mobility,Strength Other Concerns Barriers to Rehabilitation history CVA, DM, a-fib, diabetic neuropathy, gout, thyroid nodules, juli TKA, carpal tunel surgery Goals Three Impairment impaired right shoulder ROM and strength Short Term Goal (STG) Patient to be instructed in individualized, progressive HEP for purposes of right shoulder ROM and strengthening STG Duration 02/01/25 Mcfp Goal (LTG) Patient will be independent and compliant with HEP and demonstrate improvement in ROM to WFL and strength to at least 4+/5 to allow her to perform all usual activities LTG Duration 03/04/25 Two Impairment impaired functional right UE use with QuickDash score 48% Short Term Goal (STG) Decrease Quickdash score to no greater than 30% as measure of improved right shoulder function STG Duration 02/01/25 Mcfp Goal (LTG) Decrease Quickdash score to no greater than 20% as measure of improved right shoulder function and quality of life LTG Duration 03/04/25 One Impairment Right shoulder pain as high as 9/10 with reaching overhead or to side Short Term Goal (STG) decrease pain to no greater than 6/10 with reaching overhead or out to side for purposes of daily activities STG Duration 02/01/25 Mcfp Goal (LTG) Derease pain to no greater than 3/10 with reaching overhead or out to the side for purposes of daily activities LTG Duration 03/04/25 Assessment Summary Assessment Good respnse to first session. Patient highly compliant to HEP without difficulty per her report. Unable to reach out to side or over head without pain. Use of towel roll along her spine for postural correction. Physical Therapy Plan Frequency and Duration Frequency of Treatment 2x/Week Duration of treatment (weeks) 8 Plan of Care Start Date 01/04/25 Plan of Care End Date 03/04/25 Therapeutic Interventions Therapeutic Interventions Home Exercise Program,Joint Mobilizations,Manual Therapy, Patient/Caregiver Education, Self-Care/Home Management,Soft Tissue Mobilization,Taping, Therapeutic Activities, Therapeutic Exercises Modalities Cold Pack/Ice Massage,Electric Stimulation,Hot Packs, Infrared Therapy,Iontophoresis ,Ultrasound Next Visit Focus/Plan Next Note Type Treatment Note Next Visit Plan Review HEP, update or modify as needed. Consider transfer to treatment table for modified supine (patient sleeps in chair) ther ex and manual. Manual treatment to decrease soft tissue tension and promote healing. Consider cold laser or ultrasound
--- NOTE | 2025-01-17 16:12 | PT.OTN ---
Current Diagnoses Pain in right shoulder (01/17/25) Soft tissue disorder, unspecified (01/17/25) Weakness (01/17/25) Physical Therapy Treatment Note PT-OP-A Visit Information Start: 01/04/25 08:12 Freq: Status: Active Protocol: Document 01/17/25 15:15 [facility] (Rec: 01/17/25 16:12 [facility] [id number]) Out-Patient Physical Therapy Visit Information Visit Information Visit Type Treatment Note Visit Start Time 15:15 Visit Number 3 Evaluation Information Evaluation Date 01/04/25 Precautions Precautions prior CVA, sleeps in sleep chair, not bed. History knee replacement, back pain. A-fib with severe fatigue, thyroid nodules PT-OP-B Current Condition Start: 01/04/25 08:12 Freq: Status: Active Protocol: Document 01/17/25 15:15 [facility] (Rec: 01/17/25 16:12 [facility] [id number]) Current Condition History of Current Condition Onset Date 6-8 months ago Current Complaints right shoulder pain History of Current Condition 2014 reached back behind her, torn RC, discussed surgery with Dr. Melendez, no surgery. 2017 vertigo, fell and tore L shoulder, no surgery. Doesn't think she did PT for shoulders, did for LBP and TKA . 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 Not currently doing any exercise, minimal activity. Most recently no injury, but exacerbation of right shoulder pain. States so fatigued, thinks from a-fib ,I don't want to do anything. Can walk up to 200 ft with walker. No pain with arm at side, pain as high as 9/10 when tries to lift or reach to side. States she had daughter do some deep pressure between shoulder and neck that felt good. Has wall bar for use with leg exercise but hasn't used in a long time . Prior Treatments and Tests no imaging Future Testing and Treatments Planned return to Dr. Jorgensen if PT not helpful. PT-OP-C Subjective Start: 01/04/25 08:12 Freq: Status: Active Protocol: Document 01/17/25 15:15 [facility] (Rec: 01/17/25 16:12 [facility] [id number]) OP-PT Subjective Patient Comments Patient Comments Doing HEP. Hasn't tried use of towel roll at spine as done last session. has installed pulleys, hasn't tried yet. Maybe a little better. Has adjusted where things are in her environment so doesn't have to reach with right UE. PT-OP-E Functional Tests Start: 01/04/25 08:12 Freq: Status: Active Protocol: Document 01/04/25 13:46 SAK (Rec: 01/04/25 15:33 [facility] [id number]) Functional Tests Apley's Scratch Test Action 1- Left opp shld Action 1- Right middle of chest Action 2- Left T2 Action 2- Right lateral neck Action 3- Left T12 Action 3- Right L5 PT-OP-F Manual Assessment Start: 01/04/25 08:12 Freq: Status: Active Protocol: Document 01/04/25 13:46 SAK (Rec: 01/04/25 15:33 [facility] [id number]) Manual Assessments Joint Mobility Assessment Joint Mobility Assessment Not assessed this date, patient does not lay supine, will put in modified supine on treatment table next session. PT-OP-J Posture/Palpation/Skin Start: 01/04/25 08:12 Freq: Status: Active Protocol: Document 01/04/25 13:46 [facility] (Rec: 01/04/25 15:33 [facility] [id number]) Posture Evaluation Position Sitting Head/C-Spine Posture Forward Head T-Spine Posture Increased Kyphosis Scapula Posture (R) Protracted Arm Posture (L) Internally Rotated,(R) Internally Rotated Palpation Assessment Location T4 central Palpation Findings Tenderness periscap Palpation Findings Tenderness Palpation Details lateral UT Palpation Findings Soft Tissue Tightness,Muscle Guarding RC insertion Palpation Findings Tenderness PT-OP-L Special Tests Start: 01/04/25 08:12 Freq: Status: Active Protocol: Document 01/04/25 13:46 [facility] (Rec: 01/04/25 15:33 [facility] [id number]) Special Tests Shoulder Special Tests Drop Arm Rotator Cuff Test Results + PT-OP-M Strength Start: 01/04/25 08:12 Freq: Status: Active Protocol: Document 01/04/25 13:46 SAK (Rec: 01/04/25 15:33 [facility] [id number]) Shoulder Strength Shoulder Manual Muscle Testing Right Flexion 3- Fair- Extension 3+ Fair+ Abduction (C5) 3- Fair- Adduction 3+ Fair+ External Rotation 3+ Fair+ Internal Rotation 3+ Fair+ Left Flexion 4+ Good+ Extension 4+ Good+ Abduction (C5) 4+ Good+ Adduction 4+ Good+ External Rotation 4+ Good+ Elbow/Forearm Strength Elbow and Forearm Manual Muscle Testing Right Flexion (C6) 4 Good Extension (C7) 4 Good Left Flexion (C6) 5 Normal Extension (C7) 5 Normal PT-OP-Q Treatments Start: 01/04/25 08:12 Freq: Status: Active Protocol: Document 01/17/25 15:15 [facility]AK (Rec: 01/17/25 16:12 [facility] [id number]) Therapeutic Exercises Sitting Exercises pulleys Sitting Exercise Name flexion Resistance passive, then 5% active Equipment Used towel roll along spine Reps/Minutes 10x Comments cues for pain-free ROM add scaption next session table slide Equipment Used pillow case, counter Reps/Minutes 5x Comments pinching in shoulder, discontinued sh ER Sitting Exercise Name PROM Equipment Used dowel, towel roll along spine Reps/Minutes 10x Comments cues for pain-free ROM bicep curl Equipment Used dowel,towel roll along spine Reps/Minutes 10x scap retraction Side bilateral Reps/Minutes 10x5 Comments verbal and tactile cues shld sandee Sitting Exercise Name HEP Manual Therapy Treatment Soft Tissue Mobilization UT, RC Mobilization Type Cross-Friction,Strumming, Trigger Point Release Intensity/Depth mod Body Position Sitting PT-OP-R Modalities Start: 01/04/25 08:12 Freq: Status: Active Protocol: Document 01/17/25 15:15 [facility] (Rec: 01/17/25 16:12 [facility] [id number]) Hot Pack/Cold Pack Treatment Hot Pack Patient Position Sitting Patient Tolerance Good Comments after manual Ultrasound Therapy Treatment right shoulder Patient Position Sitting Coupling Medium Ultrasound Gel Applicator Size (cm2) 10 Frequency Setting (mHz) 1 Mode Setting Continuous Duty Cycle 100% Intensity Setting (w/cm2) 1.4 PT-OP-T Assessment and Plan Start: 01/04/25 08:12 Freq: Status: Active Protocol: Document 01/17/25 15:15 [facility] (Rec: 01/17/25 16:12 [facility] [id number]) Physical Therapy Assessment Impairments Impairments Functional Activities,Pain,ROM ,Soft Tissue Mobility,Strength Other Concerns Barriers to Rehabilitation history CVA, DM, a-fib, diabetic neuropathy, gout, thyroid nodules, juli TKA, carpal tunel surgery Goals Three Impairment impaired right shoulder ROM and strength Short Term Goal (STG) Patient to be instructed in individualized, progressive HEP for purposes of right shoulder ROM and strengthening STG Duration 02/01/25 Usp Goal (LTG) Patient will be independent and compliant with HEP and demonstrate improvement in ROM to WFL and strength to at least 4+/5 to allow her to perform all usual activities LTG Duration 03/04/25 Two Impairment impaired functional right UE use with QuickDash score 48% Short Term Goal (STG) Decrease Quickdash score to no greater than 30% as measure of improved right shoulder function STG Duration 02/01/25 Energy Broker Goal (LTG) Decrease Quickdash score to no greater than 20% as measure of improved right shoulder function and quality of life LTG Duration 03/04/25 One Impairment Right shoulder pain as high as 9/10 with reaching overhead or to side Short Term Goal (STG) decrease pain to no greater than 6/10 with reaching overhead or out to side for purposes of daily activities STG Duration 02/01/25 Energy Broker Goal (LTG) Derease pain to no greater than 3/10 with reaching overhead or out to the side for purposes of daily activities LTG Duration 03/04/25 Assessment Summary Assessment Improved right shoulder flex to at least 165 with pulleys today after scapular mob, initially less than 90 deg flex. Trial ultrasound and heat right shoulder. Physical Therapy Plan Frequency and Duration Frequency of Treatment 2x/Week Duration of treatment (weeks) 8 Plan of Care Start Date 01/04/25 Plan of Care End Date 03/04/25 Therapeutic Interventions Therapeutic Interventions Home Exercise Program,Joint Mobilizations,Manual Therapy, Patient/Caregiver Education, Self-Care/Home Management,Soft Tissue Mobilization,Taping, Therapeutic Activities, Therapeutic Exercises Modalities Cold Pack/Ice Massage,Electric Stimulation,Hot Packs, Infrared Therapy,Iontophoresis ,Ultrasound Next Visit Focus/Plan Next Note Type Treatment Note Next Visit Plan Assess response to ultrasound and MH. Continue ther ex, manual, modalities PRN right shoulder pain.
--- NOTE | 2025-02-07 16:21 | PT.OTN ---
Current Diagnoses Pain in right shoulder (02/07/25) Soft tissue disorder, unspecified (02/07/25) Weakness (02/07/25) Physical Therapy Treatment Note PT-OP-A Visit Information Start: 01/04/25 08:12 Freq: Status: Active Protocol: Document 02/07/25 15:19 [facility] (Rec: 02/07/25 16:21 [facility] [id number]) Out-Patient Physical Therapy Visit Information Visit Information Visit Type Treatment Note Visit Start Time 15:15 Visit Stop Time 16:10 Visit Number 4 Evaluation Information Evaluation Date 01/04/25 Precautions Precautions prior CVA, sleeps in sleep chair, not bed. History knee replacement, back pain. A-fib with severe fatigue, thyroid nodules PT-OP-B Current Condition Start: 01/04/25 08:12 Freq: Status: Active Protocol: Document 02/07/25 15:19 [facility] (Rec: 02/07/25 16:21 [facility] [id number]) Current Condition History of Current Condition Onset Date 6-8 months ago Current Complaints right shoulder pain History of Current Condition 2014 reached back behind her, torne[place]h RC, discussed surgery with Dr. Melendez, no surgery. 2017 vertigo, fell and tore L shoulder, no surgery. Doesn't think she did PT for shoulders, did for LBP and TKA . 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 Not currently doing any exercise, minimal activity. Most recently no injury, but exacerbation of right shoulder pain. States so fatigued, thinks from a-fib ,I don't want to do anything. Can walk up to 200 ft with walker. No pain with arm at side, pain as high as 9/10 when tries to lift or reach to side. States she had daughter do some deep pressure between shoulder and neck that felt good. Has wall bar for use with leg exercise but hasn't used in a long time . Prior Treatments and Tests no imaging Future Testing and Treatments Planned return to Dr. Jorgensen if PT not helpful. PT-OP-C Subjective Start: 01/04/25 08:12 Freq: Status: Active Protocol: Document 02/07/25 15:19 [facility] (Rec: 02/07/25 16:21 [facility] [id number]) OP-PT Subjective Patient Comments Patient Comments Patient reports so fatigued, difficult to get to PT. States pain relief for 2 days after ultrasound. Has been doing isometrics in chair, hasn't done pulleys yet, just can't seem to get myself to do it. Denies depression. PT-OP-E Functional Tests Start: 01/04/25 08:12 Freq: Status: Active Protocol: Document 01/04/25 13:46 [facility] (Rec: 01/04/25 15:33 [facility] [id number]) Functional Tests Apley's Scratch Test Action 1- Left opp shld Action 1- Right middle of chest Action 2- Left T2 Action 2- Right lateral neck Action 3- Left T12 Action 3- Right L5 PT-OP-F Manual Assessment Start: 01/04/25 08:12 Freq: Status: Active Protocol: Document 01/04/25 13:46 [facility] (Rec: 01/04/25 15:33 [facility] [id number]) Manual Assessments Joint Mobility Assessment Joint Mobility Assessment Not assessed this date, patient does not lay supine, will put in modified supine on treatment table next session. PT-OP-J Posture/Palpation/Skin Start: 01/04/25 08:12 Freq: Status: Active Protocol: Document 01/04/25 13:46 [facility] (Rec: 01/04/25 15:33 [facility] [id number]) Posture Evaluation Position Sitting Head/C-Spine Posture Forward Head T-Spine Posture Increased Kyphosis Scapula Posture (R) Protracted Arm Posture (L) Internally Rotated,(R) Internally Rotated Palpation Assessment Location T4 central Palpation Findings Tenderness periscap Palpation Findings Tenderness Palpation Details lateral UT Palpation Findings Soft Tissue Tightness,Muscle Guarding RC insertion Palpation Findings Tenderness PT-OP-L Special Tests Start: 01/04/25 08:12 Freq: Status: Active Protocol: Document 01/04/25 13:46 [facility] (Rec: 01/04/25 15:33 [facility] [id number]) Special Tests Shoulder Special Tests Drop Arm Rotator Cuff Test Results + PT-OP-M Strength Start: 01/04/25 08:12 Freq: Status: Active Protocol: Document 01/04/25 13:46 [facility] (Rec: 01/04/25 15:33 [facility] [id number]) Shoulder Strength Shoulder Manual Muscle Testing Right Flexion 3- Fair- Extension 3+ Fair+ Abduction (C5) 3- Fair- Adduction 3+ Fair+ External Rotation 3+ Fair+ Internal Rotation 3+ Fair+ Left Flexion 4+ Good+ Extension 4+ Good+ Abduction (C5) 4+ Good+ Adduction 4+ Good+ External Rotation 4+ Good+ Elbow/Forearm Strength Elbow and Forearm Manual Muscle Testing Right Flexion (C6) 4 Good Extension (C7) 4 Good Left Flexion (C6) 5 Normal Extension (C7) 5 Normal PT-OP-Q Treatments Start: 01/04/25 08:12 Freq: Status: Active Protocol: Document 02/07/25 15:19 [facility] (Rec: 02/07/25 16:21 [facility] [id number]) Therapeutic Exercises Sitting Exercises pulleys Sitting Exercise Name flexion, scaption Resistance passive, then 5% active Equipment Used towel roll along spine Reps/Minutes 10x Comments cues for pain-free ROM add scaption next session sh ER Sitting Exercise Name AROM, added to HEP Equipment Used towel roll along spine Reps/Minutes 10x Comments cues for pain-free ROM bicep curl Resistance 1# Equipment Used dowel,towel roll along spine Reps/Minutes 10x scap retraction Sitting Exercise Name added to HEP Equipment Used L1 TB Reps/Minutes 6x shld sandee Sitting Exercise Name HEP v Manual Therapy Treatment Consent Patient gave verbal consent for manual Yes treatment Soft Tissue Mobilization UT, RC Body Location also biceps Mobilization Type Cross-Friction,Strumming, Trigger Point Release Intensity/Depth mod Body Position Sitting Self-Care/Home Management Treatment Education Other Education updated HEP, encouraged increased compliance PT-OP-R Modalities Start: 01/04/25 08:12 Freq: Status: Active Protocol: Document 02/07/25 15:19 [facility] (Rec: 02/07/25 16:21 [facility] [id number]) Hot Pack/Cold Pack Treatment Hot Pack Patient Position Sitting Patient Tolerance Good Comments after manual Ultrasound Therapy Treatment right shoulder Patient Position Sitting Coupling Medium Ultrasound Gel Applicator Size (cm2) 10 Frequency Setting (mHz) 1 Mode Setting Continuous Duty Cycle 100% Intensity Setting (w/cm2) 1.4 PT-OP-T Assessment and Plan Start: 01/04/25 08:12 Freq: Status: Active Protocol: Document 02/07/25 15:19 [facility] (Rec: 02/07/25 16:21 [facility] [id number]) Physical Therapy Assessment Impairments Impairments Functional Activities,Pain,ROM ,Soft Tissue Mobility,Strength Other Concerns Barriers to Rehabilitation history CVA, DM, a-fib, diabetic neuropathy, gout, thyroid nodules, juli TKA, carpal tunel surgery Goals Three Impairment impaired right shoulder ROM and strength Short Term Goal (STG) Patient to be instructed in individualized, progressive HEP for purposes of right shoulder ROM and strengthening STG Duration 02/01/25 Care Home Goal (LTG) Patient will be independent and compliant with HEP and demonstrate improvement in ROM to WFL and strength to at least 4+/5 to allow her to perform all usual activities LTG Duration 03/04/25 Two Impairment impaired functional right UE use with QuickDash score 48% Short Term Goal (STG) Decrease Quickdash score to no greater than 30% as measure of improved right shoulder function STG Duration 02/01/25 Chamfering Machine Operator Goal (LTG) Decrease Quickdash score to no greater than 20% as measure of improved right shoulder function and quality of life LTG Duration 03/04/25 One Impairment Right shoulder pain as high as 9/10 with reaching overhead or to side Short Term Goal (STG) decrease pain to no greater than 6/10 with reaching overhead or out to side for purposes of daily activities STG Duration 02/01/25 Care Home Goal (LTG) Derease pain to no greater than 3/10 with reaching overhead or out to the side for purposes of daily activities LTG Duration 03/04/25 Assessment Summary Assessment Good tolerance for pulleys, poor compliance to HEP. Updated HEP. Physical Therapy Plan Frequency and Duration Frequency of Treatment 2x/Week Duration of treatment (weeks) 8 Plan of Care Start Date 01/04/25 Plan of Care End Date 03/04/25 Therapeutic Interventions Therapeutic Interventions Home Exercise Program,Joint Mobilizations,Manual Therapy, Patient/Caregiver Education, Self-Care/Home Management,Soft Tissue Mobilization,Taping, Therapeutic Activities, Therapeutic Exercises Modalities Cold Pack/Ice Massage,Electric Stimulation,Hot Packs, Infrared Therapy,Iontophoresis ,Ultrasound Next Visit Focus/Plan Next Note Type Treatment Note Next Visit Plan Continue gentle ther ex, ultrasound and moist heat.
--- NOTE | 2025-02-14 15:28 | PT-OP ANOTE ---
cancelled due to ill.
--- NOTE | 2025-05-07 09:15 | PT.OPDS ---
Current Diagnoses Pain in right shoulder (02/07/25) Soft tissue disorder, unspecified (02/07/25) Weakness (02/07/25) Visit Care Team Role Provider Type Noah Jorgensen MD Attending Provider Physician Family Provider Primary Care Provider Referring Provider Specialty: Internal Medicine Address: [address] [place] [address], [address], [place], [address] Email: [email or web address] Visit Number Visit Number 4 Discharge Summary PT-OP-B Current Condition Start: 01/04/25 08:12 Freq: Status: Active Protocol: Document 02/07/25 15:19 [facility] (Rec: 02/07/25 16:21 [facility] [id number]) Current Condition History of Current Condition Onset Date 6-8 months ago Current Complaints right shoulder pain History of Current 2014 reached back behind her, torn RC, discussed Condition surgery with Dr. Melendez, no surgery. 2017 vertigo, fell and tore L shoulder, no surgery. Doesn't think she did PT for shoulders, did for LBP and TKA. 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 Not currently doing any exercise, minimal activity. Most recently no injury, but exacerbation of right shoulder pain. States so fatigued, thinks from a-fib,I don't want to do anything. Can walk up to 200 ft with walker. No pain with arm at side, pain as high as 9/10 when tries to lift or reach to side. States she had daughter do some deep pressure between shoulder and neck that felt good. Has wall bar for use with leg exercise but hasn't used in a long time. Prior Treatments and no imaging Tests Future Testing and return to Dr. Jorgensen if PT not helpful. Treatments Planned PT-OP-C Subjective Start: 01/04/25 08:12 Freq: Status: Active Protocol: Document 02/07/25 15:19 [facility] (Rec: 02/07/25 16:21 [facility] [id number]) OP-PT Subjective Patient Comments Patient Comments Patient reports so fatigued, difficult to get to PT. States pain relief for 2 days after ultrasound. Has been doing isometrics in chair, hasn't done pulleys yet , just can't seem to get myself to do it. Denies depression. PT-OP-E Functional Tests Start: 01/04/25 08:12 Freq: Status: Active Protocol: Document 01/04/25 13:46 [facility] (Rec: 01/04/25 15:33 [facility] [id number]) Functional Tests Apley's Scratch Test Action 1- Left opp shld Action 1- Right middle of chest Action 2- Left T2 Action 2- Right lateral neck Action 3- Left T12 Action 3- Right L5 PT-OP-F Manual Assessment Start: 01/04/25 08:12 Freq: Status: Active Protocol: Document 01/04/25 13:46 [facility] (Rec: 01/04/25 15:33 [facility] [id number]) Manual Assessments Joint Mobility Assessment Joint Mobility Not assessed this date, patient does not lay supine, Assessment will put in modified supine on treatment table next session. PT-OP-J Posture/Palpation/Skin Start: 01/04/25 08:12 Freq: Status: Active Protocol: Document 01/04/25 13:46 [facility] (Rec: 01/04/25 15:33 [facility] [id number]) Posture Evaluation Position Sitting Head/C-Spine Posture Forward Head T-Spine Posture Increased Kyphosis Scapula Posture (R) Protracted Arm Posture (L) Internally Rotated,(R) Internally Rotated Palpation Assessment Location T4 central Palpation Findings Tenderness periscap Palpation Findings Tenderness Palpation Details lateral UT Palpation Findings Soft Tissue Tightness,Muscle Guarding RC insertion Palpation Findings Tenderness PT-OP-L Special Tests Start: 01/04/25 08:12 Freq: Status: Active Protocol: Document 01/04/25 13:46 [facility] (Rec: 01/04/25 15:33 [facility] [id number]) Special Tests Shoulder Special Tests Drop Arm Rotator Cuff Test Results + PT-OP-M Strength Start: 01/04/25 08:12 Freq: Status: Active Protocol: Document 01/04/25 13:46 [facility] (Rec: 01/04/25 15:33 [facility] [id number]) Shoulder Strength Shoulder Manual Muscle Testing Right Flexion 3- Fair- Extension 3+ Fair+ Abduction (C5) 3- Fair- Adduction 3+ Fair+ External Rotation 3+ Fair+ Internal Rotation 3+ Fair+ Left Flexion 4+ Good+ Extension 4+ Good+ Abduction (C5) 4+ Good+ Adduction 4+ Good+ External Rotation 4+ Good+ Elbow/Forearm Strength Elbow and Forearm Manual Muscle Testing Right Flexion (C6) 4 Good Extension (C7) 4 Good Left Flexion (C6) 5 Normal Extension (C7) 5 Normal PT-OP-T Assessment and Plan Start: 01/04/25 08:12 Freq: Status: Active Protocol: Document 05/07/25 09:13 [facility] (Rec: 05/07/25 09:14 [facility] Laptop) Physical Therapy Plan Discharge Physical Therapy Discharge Reasons No Longer Attending PT
== END 2025-05-14 10:26 | disposition home or self-care (01) ==
LOC: PHYS 15:15
PROVIDERS: Family Provider Internal Medicine; PCP Internal Medicine; Referring Provider Internal Medicine; Visit Provider Internal Medicine
DX: M25.511 Pain in right shoulder (principal); R53.1 Weakness; M79.9 Soft tissue disorder, unspecified
CPT/HCPCS: 97110; 97140; 97162; 97535

== ENCOUNTER → 2025-02-20 11:40 | Outpatient (CLI) | payer MEDICARE, SELFPAY ==
[2022-05-29 09:21] VITALS: BMI 40.8
--- NOTE | 2025-02-20 11:43 | DI.RAD.S_ITS ---
PROCEDURE: XR CHEST 2V INDICATIONS: dyspnea TECHNIQUE: 2 views of the chest were acquired. COMPARISON: [facility], CR, XR CHEST 2V, 10/04/2024, 13:05. FINDINGS: Heart, mediastinum and pulmonary vascular: Heart is mildly enlarged. Mediastinum is unremarkable. Pulmonary vascular is mildly distended. Lungs: Moderate airspace disease in both posterior lower lobes either represents atelectasis or infiltrate. Pleural spaces: Moderate bilateral pleural effusions noted. Bones and soft tissues: Normal IMPRESSION: Probable mild CHF. If there is clinical support for congestive heart failure, consider diuretic trial and repeat two view chest to re-evaluate the lower lobes. Moderate bilateral lower lobe airspace disease either represents atelectasis related to the effusions or superimposed infiltrate Dictated by: Noah Tejada M.D. on 02/21/2025 at 11:21 Approved by: Noah Tejada M.D. on 02/21/2025 at 11:24
[2025-02-20 12:11] LABS: Add Manual Diff / Slide Review NO; Basophils Absolute Auto 100 /uL (0-100); Basophils Percent Auto 0.7 % (0-2); Eosinophils Absolute Auto 100 /uL (0-450); Eosinophils Percent Auto 1.2 % (2-4); Hematocrit 43.5 % (36-46); Hemoglobin 14.2 g/dL (12.0-16.0); Lymphocytes Absolute Auto 1000 /uL (1100-4500); Lymphocytes Percent Auto 13.5 % (25-40); Mean Corpuscular HGB Conc 32.6 % (30-36); Mean Corpuscular Hemoglobin 30.1 PG (26-34); Mean Corpuscular Volume 92.3 fL (80-100); Monocytes Absolute Auto 500 /uL (0-900); Monocytes Percent Auto 6.9 % (3-14); Neutrophils Absolute Auto 5800 /uL (1500-7000); Neutrophils Percent Auto 77.7 % (50-75); Platelet Count 201 X10^3/uL (150-400); Red Blood Cell Count 4.71 X10^6/uL (4.0-5.2); White Blood Cell Count 7.5 X10^3/uL (4.5-11.0)
[2025-02-20 15:13] LABS: Alanine Aminotransferase 36 IU/L (<35); Albumin 3.4 g/dL (3.5-5.0); Albumin Globulin Ratio 1.3 (1.0-2.8); Alkaline Phosphatase 89 U/L (38-126); Aspartate Aminotransferase 32 IU/L (14-36); Bilirubin Total 0.8 mg/dL (0.2-1.3); Blood Urea Nitrogen 34 mg/dL (7-17); Calcium 10.5 mg/dL (8.4-10.2); Carbon Dioxide 24 mmol/L (22-32); Chloride 105 mmol/L (98-107); Estimated Glomerular Filt Rate > 60 mL/min (>60); Globulin 2.6 g/dL (1.7-4.1); Glucose 166 mg/dL (80-110); HEMOLYSIS < 15 (0-50); Potassium 5.2 mmol/L (3.4-5.1); Sodium 137 mmol/L (137-145)
[2025-02-20 16:44] LABS: NT-proBNP (BNP-Adult 18+) 1680 pg/mL (<450)
== END ==
LOC: LAB 11:42
PROVIDERS: Family Provider Internal Medicine; PCP Internal Medicine; Referring Provider Internal Medicine; Visit Provider Internal Medicine
DX: I10 Essential (primary) hypertension (principal); R06.00 Dyspnea, unspecified; E11.9 Type 2 diabetes mellitus without complications; J45.909 Unspecified asthma, uncomplicated; R91.8 Other nonspecific abnormal finding of lung field
CPT/HCPCS: 36415; 71046; 80053; 83880; 85025

== ENCOUNTER → 2025-02-28 14:44 | Outpatient (CLI) | payer MEDICARE, SELFPAY ==
[2022-05-29 09:21] VITALS: BMI 40.8
== END ==
PROVIDERS: Family Provider Internal Medicine; PCP Internal Medicine; Referring Provider Internal Medicine; Visit Provider Internal Medicine
DX: R06.02 Shortness of breath (principal); R94.2 Abnormal results of pulmonary function studies
CPT/HCPCS: 94060; 94726; 94729

== ENCOUNTER → 2025-03-15 16:41 | Outpatient (CLI) | payer MEDICARE, SELFPAY ==
[2022-05-29 09:21] VITALS: BMI 40.8
[2025-03-15 17:31] LABS: Alanine Aminotransferase 45 IU/L (<35); Albumin 3.7 g/dL (3.5-5.0); Albumin Globulin Ratio 1.4 (1.0-2.8); Alkaline Phosphatase 93 U/L (38-126); Aspartate Aminotransferase 36 IU/L (14-36); BUN Creatinine Ratio 34.4 (6-22); Bilirubin Total 1.1 mg/dL (0.2-1.3); Blood Urea Nitrogen 31 mg/dL (7-17); Calcium 10.6 mg/dL (8.4-10.2); Carbon Dioxide 29 mmol/L (22-32); Chloride 102 mmol/L (98-107); Estimated Glomerular Filt Rate > 60 mL/min (>60); Globulin 2.6 g/dL (1.7-4.1); Glucose 167 mg/dL (70-99); HEMOLYSIS < 15 (0-50); Hemoglobin A1C% w Est Avg Glu 6.1 % (4.0-6.0); Magnesium 1.4 mg/dL (1.6-2.3); Sodium 139 mmol/L (137-145); Total Protein 6.3 g/dL (6.3-8.2)
[2025-03-15 17:38] LABS: NT-proBNP (BNP-Adult 18+) 1860 pg/mL (<450)
== END ==
PROVIDERS: Family Provider Internal Medicine; PCP Internal Medicine; Referring Provider Internal Medicine; Visit Provider Internal Medicine
DX: I50.9 Heart failure, unspecified (principal); N18.31 Chronic kidney disease, stage 3a; E11.69 Type 2 diabetes mellitus with other specified complication
CPT/HCPCS: 36415; 80053; 83036; 83735; 83880

== ENCOUNTER → 2025-03-20 13:41 | Outpatient (CLI) | payer MEDICARE, SELFPAY ==
[2022-05-29 09:21] VITALS: BMI 40.8
--- NOTE | 2025-03-20 13:42 | DI.ECHO.S_ITS ---
[facility] : : [id number] : : [place] : : [id number] : : Phone: [phone] Echocardiogram Report + + :Name: DEIRDRE RODRIGUEZ Study Date: 03/20/2025 Height: 66 in : [facility] ReadingLocation: Weight: 243 lb : : Gender: Female BSA: 2.2 m2 : :: 1945 Age: 80 yrs BP: 128/70 mmHg: :Reason For Study: CHF : :Ordering Physician: YANIV, : :SAULO Guidry Performed By: Saúl Fitch : :Referring: SAULO PURVIS : + + Interpretation Summary Indeterminant rhythm with irregularly irregular wide QRS complexes. Suspect atrial fibrillation. Normal LV size and mildly increased wall thickness. There is septal dyssynchrony which could be due to conduction system disease. Otherwise normal wall motion and LV systolic function. Ejection fraction 60-65%. Mildly dilated right ventricle with mildly reduced RV systolic function. Mild mitral annular calcification; otherwise normal valves. Moderate left pleural effusion Estimated PA systolic pressure 90 mmHg assuming right atrial pressure of 15 Trace circumferential pericardial effusion. Compared to prior echo September 06, 2024, A-fib is old. Elevated PA systolic pressure is old. RV dilation is old. Left pleural effusion and trace circumferential pericardial effusion is new. Procedure: A two-dimensional transthoracic echocardiogram with color flow and Doppler was performed. Technically difficult exam, patient scanned in wheel chair. Comparison is made with the echocardiogram of 09/06/2024. The patient was in atrial fibrillation with heart rates between 78-98 bpm during the exam. Left Ventricle: The left ventricle is normal in size. Left ventricular wall thickness is mildly increased. Left ventricular systolic function is normal. The ejection fraction is estimated to be 60-65%. D-shaped left ventricle in systole and diastole consistent with RV pressure overload. Diastolic function could not be accurately assessed due to atrial fibrillation. Right Ventricle: The right ventricle is mildly dilated. Right ventricular systolic function is mildly reduced. Atria: The left atrial size is normal. Right atrial size is normal. There is no Doppler evidence for an interatrial shunt. Mitral Valve: There is mild mitral annular calcification. Mild thickening of the posterior mitral valve leaflet. There is no mitral valve stenosis. There is mild mitral regurgitation. Aortic Valve: The aortic valve is trileaflet. The aortic valve opens well. There is no aortic valve stenosis. No aortic regurgitation is present. Tricuspid Valve: The tricuspid valve is not well visualized, but is grossly normal. There is mild tricuspid regurgitation. The right ventricular systolic pressure is estimated to be at least 90 mmHg based on an estimated right atrial pressure of 8 mm Hg. Pulmonic Valve: The pulmonic valve is not well seen, but is grossly normal. There is a trace or physiologic amount of pulmonic regurgitation. Great Vessels: The aortic root is normal size. The ascending aorta is normal in size. The aortic arch could not be visualized. The IVC is of normal diameter and collapses less than 50% with a sniff. This suggests a right atrial pressure of 8 mm Hg. Pericardium/ Pleura There is a trivial pericardial effusion noted. Pleural effusion seen. MMode/2D Measurements & Calculations LVIDd: 4.1 cm LVOT diam: 1.9 cm LVIDs: 2.7 cm Ao root diam: 2.6 cm FS: 35.1 % asc Aorta Diam: 2.8 cm EPSS: 0.68 cm IVSd: 1.4 cm LVPWd: 1.3 cm LV gavin. diameter/BSA (cm/m^2): 1.9 LV sys. diameter/BSA (cm/m^2): 1.2 LA A2 area: 22.7 cm2 RA long axis: 5.9 cm LA A4 area: 22.4 cm2 RA area: 20.4 cm2 LA length (vol): 6.1 cm RA vol: 59.6 ml LA vol: 70.6 ml RA : 27.4 ml/m2 LA vol index: 32.5 ml/m2 IVC diam: 1.9 cm RVD1 (basal): 3.8 cm RVD2 (mid): 3.4 cm TAPSE: 1.4 cm Doppler Measurements & Calculations Ao V2 max: 138.4 cm/sec LVOT Max Travis: 99.6 cm/sec Ao V2 mean: 89.9 cm/sec LV V1 max P.0 mmHg Ao max P.7 mmHg LV V1 VTI: 18.0 cm Ao mean P.0 mmHg GEOVANNA(I,D): 2.0 cm2 Ao V2 VTI: 24.6 cm GEOVANNA(V,D): 2.0 cm2 sev ratio: 0.73 GEOVANNA indexed to BSA (cm^2/m^2): 0.92 MV E max travis: 112.8 cm/sec TR max travis: 454.5 cm/sec Med Peak E' Travis: 7.3 cm/sec TR max P.6 mmHg E/E' med: 15.5 PA V2 max: 94.5 cm/sec Lat Peak E' Travis: 8.6 cm/sec PA V2 mean: 55.4 cm/sec E/E' lat: 13.2 PA mean P.6 mmHg E/e' average: 14.3 PA pr(Accel): 41.3 mmHg MV dec time: 0.20 sec SV(LVOT): 49.1 ml Electronically signed by: Aydee Rangel M.D. on Reading Physician:03/20/2025 04:07 PM
== END ==
LOC: ECHO 13:41
PROVIDERS: Family Provider Internal Medicine; PCP Internal Medicine; Referring Provider Internal Medicine; Visit Provider Internal Medicine
DX: I08.1 Rheumatic disorders of both mitral and tricuspid valves (principal); I48.91 Unspecified atrial fibrillation; J90 Pleural effusion, not elsewhere classified; I50.9 Heart failure, unspecified
CPT/HCPCS: 93306

== ENCOUNTER → 2025-04-03 14:52 | Outpatient (CLI) | payer MEDICARE, SELFPAY ==
[2022-05-29 09:21] VITALS: BMI 40.8
[2025-04-03 16:05] LABS: BUN Creatinine Ratio 32.1 (6-22); Blood Urea Nitrogen 27 mg/dL (7-17); Calcium 10.6 mg/dL (8.4-10.2); Carbon Dioxide 32 mmol/L (22-32); Chloride 100 mmol/L (98-107); Estimated Glomerular Filt Rate > 60 mL/min (>60); Glucose 130 mg/dL (70-99); HEMOLYSIS < 15 (0-50); Potassium 4.2 mmol/L (3.4-5.1); Sodium 138 mmol/L (137-145)
== END ==
PROVIDERS: Family Provider Internal Medicine; PCP Internal Medicine; Referring Provider Internal Medicine; Visit Provider Internal Medicine
DX: I50.31 Acute diastolic (congestive) heart failure (principal); M10.9 Gout, unspecified
CPT/HCPCS: 36415; 80048; 84550

== ENCOUNTER → 2025-04-11 15:01 | Outpatient (CLI) | payer MEDICARE, SELFPAY ==
[2022-05-29 09:21] VITALS: BMI 40.8
--- NOTE | 2025-04-11 15:05 | DI.RAD.S_ITS ---
PROCEDURE: XR CHEST 2V INDICATIONS: Acute diastolic (congestive) heart failure TECHNIQUE: 2 views of the chest were acquired. COMPARISON: [facility], CR, XR CHEST 2V, 02/20/2025, 11:38. FINDINGS: Heart, mediastinum and pulmonary vascular: Heart is mildly enlarged. Mediastinum is unremarkable. Pulmonary vascular is mildly distended Lungs: Vague peribronchovascular edema is seen in the perihilar region Pleural spaces: Moderate left and small right pleural effusion noted Bones and soft tissues: Normal IMPRESSION: Mild CHF. Moderate left and small right pleural effusion Dictated by: Noah Tejada M.D. on 04/12/2025 at 13:02 Approved by: Noah Tejada M.D. on 04/12/2025 at 13:03
== END ==
LOC: RAD 15:03
PROVIDERS: Family Provider Internal Medicine; PCP Internal Medicine; Referring Provider Internal Medicine; Visit Provider Internal Medicine
DX: I50.31 Acute diastolic (congestive) heart failure (principal)
CPT/HCPCS: 71046

== ENCOUNTER → 2025-05-17 14:35 | Outpatient (CLI) | payer MEDICARE, SELFPAY ==
[2025-04-12 16:26] VITALS: BMI 40.8
[2025-05-17 16:04] LABS: Alanine Aminotransferase 28 IU/L (<35); Albumin 3.8 g/dL (3.5-5.0); Albumin Globulin Ratio 1.5 (1.0-2.8); Alkaline Phosphatase 109 U/L (38-126); Blood Urea Nitrogen 37 mg/dL (7-17); Calcium 10.9 mg/dL (8.4-10.2); Carbon Dioxide 30 mmol/L (22-32); Chloride 100 mmol/L (98-107); Estimated Glomerular Filt Rate > 60 mL/min (>60); Globulin 2.6 g/dL (1.7-4.1); Glucose 135 mg/dL (70-99); HEMOLYSIS < 15 (0-50); Magnesium 1.7 mg/dL (1.6-2.3); Potassium 4.2 mmol/L (3.4-5.1); Sodium 139 mmol/L (137-145); Total Protein 6.4 g/dL (6.3-8.2); Uric Acid 6.4 mg/dL (2.5-6.2)
== END ==
PROVIDERS: PCP Internal Medicine; Referring Provider Internal Medicine; Visit Provider Internal Medicine
DX: M10.9 Gout, unspecified (principal)
CPT/HCPCS: 36415; 80053; 83735; 84550

== ENCOUNTER → 2025-09-25 07:53 | Outpatient (CLI) | payer MEDICARE, SELFPAY ==
[2025-05-18 16:07] VITALS: BMI 40.8
[2025-09-25 08:48] LABS: Hemoglobin A1C% w Est Avg Glu 6.7 % (4.0-6.0)
[2025-09-25 08:53] LABS: Alanine Aminotransferase 52 IU/L (<35); Albumin 3.7 g/dL (3.5-5.0); Albumin Globulin Ratio 1.5 (1.0-2.8); Alkaline Phosphatase 92 U/L (38-126); Blood Urea Nitrogen 47 mg/dL (7-17); Calcium 10.7 mg/dL (8.4-10.2); Carbon Dioxide 31 mmol/L (22-32); Chloride 101 mmol/L (98-107); Estimated Glomerular Filt Rate > 60 mL/min (>60); Globulin 2.5 g/dL (1.7-4.1); Glucose 171 mg/dL (70-99); HEMOLYSIS < 15 (0-50); Magnesium 1.6 mg/dL (1.6-2.3); Potassium 3.9 mmol/L (3.4-5.1); Sodium 139 mmol/L (137-145); Total Protein 6.2 g/dL (6.3-8.2); Uric Acid 6.3 mg/dL (2.5-6.2)
== END ==
PROVIDERS: PCP Internal Medicine; Referring Provider Internal Medicine; Visit Provider Internal Medicine
DX: E11.9 Type 2 diabetes mellitus without complications (principal); I50.32 Chronic diastolic (congestive) heart failure; I10 Essential (primary) hypertension; D35.1 Benign neoplasm of parathyroid gland; N18.31 Chronic kidney disease, stage 3a
CPT/HCPCS: 36415; 80053; 82310; 83036; 83735; 83970; 84550